=== PATIENT | female | born 1950 | race Caucasian/White ===

== ENCOUNTER 2019-06-04 14:48 | Emergency (ER) | payer MEDICARE, SELFPAY ==
[2019-06-04 14:53] VITALS: BP 138/96; PULSE 108; RESP 17; TEMP 36.7; O2SAT 97; BMI 24.6
[2019-06-04 16:07] LABS: Absolute Lymphocyte Count 2.81 X10^3/uL (0.83-4.51); Absolute Neutrophil Count 7.5 X10^3/uL (2.0-7.7); Basophil# 0.02 X10^3/uL; Basophil% 0.2 % (0-1); Eosinophil# 0.05 X10^3/uL; Eosinophils% 0.4 % (0-5); Hematocrit 43.2 % (37-47); Hemoglobin 14.1 g/dL (12.0-15.0); Lymphocyte # 2.81 X10^3/ul (4.0); Mean Corp Hgb Conc 32.6 g/dL (32-36); Mean Corpuscular Hgb 30.9 pg (27.0-32.0); Mean Corpuscular Volume 94.7 fL (81-99); Mean Platelet Vol. 8.4 fl (6.2-12.0); Monocyte# 0.81 X10^3/uL; Monocyte% 7.2 % (0-10); NRBC Flagged by Analyzer 0 % (0-5); Neutrophil # 7.51 X10^3/uL (2.7-7.7); Neutrophil % 66.8 % (47-70); Platelet Count 335 K/mm3 (150-450); RBC Distribution Width CV 13.9 % (11.6-14.6); RBC Distribution Width SD 48.1 fl (35.1-43.9); Red Blood Count 4.56 M/mm3 (4.2-5.4); White Blood Count 11.2 K/mm3 (4.4-11.0)
[2019-06-04 16:14] LABS: Anion Gap 5 (5-15); BUN 18 mg/dL (7-18); BUN/Creat Ratio 26.2 RATIO (10-20); Calcium,Total 9.8 mg/dL (8.5-10.1); Chloride 102 mmol/L (98-107); Creatinine, Serum 0.69 mg/dL (0.55-1.02); EST Glomerular Filtration Rate 90 mL/min (>60); Est Glom Filt Rate - Afr Amer 109 mL/min (>60); Estimated Creatinine Clearance 50.91 ml/min; Glucose 101 mg/dL (74-106); Potassium 4.5 mmol/L (3.5-5.1); Sodium Level 137 mmol/L (136-145)
[2019-06-04 17:32] VITALS: BP 150/95; PULSE 88; RESP 20; TEMP 36.7; O2SAT 95
[2019-06-04 17:52] LABS: Bacteria 0 SEEN /hpf (None Seen); Mucous, Urine 0 SEEN /hpf (<or=2+); Red Blood Cells-Urine 0 SEEN /hpf (0-5); Squamous Epithelial Cells - UA 0 SEEN /hpf (5-10); White Blood Cells 0 SEEN /hpf (0-5)
[2019-06-04 17:58] LABS: Color, Urine Yellow (Yellow); Glucose, Dipstick Normal (Normal); Ketone-Dipstick Negative (Negative); Leukocyte Esterase-Dipstick 25 /ul (Negative); Nitrite-Dipstick Negative (Negative); Occult Blood-Urine 10 /ul (Negative); Protein-Dipstick 15 mg/dl (Negative); Specific Gravity, Urine 1.025 (1.002-1.030); Urine Bilirubin Dipstick Negative (Negative); Urine Clarity Clear (Clear); Urine Urobilinogen Normal (Normal)
[2019-06-04 18:00] VITALS: BP 162/69; PULSE 82; RESP 16; TEMP 36.4; O2SAT 93
--- NOTE | 2019-06-04 18:05 | EKG12_ITS ---
Test Reason : DYSRHYTHMIA Blood Pressure : / mmHG Vent. Rate : 081 BPM Atrial Rate : 081 BPM P-R Int : 152 ms QRS Dur : 074 ms QT Int : 380 ms P-R-T Axes : 050 042 051 degrees QTc Int : 441 ms Normal sinus rhythm Normal ECG Confirmed by BRIAN CHAVEZ, AB ([id number]), scientific editor ARNIE VARELA ([id number]) on 06/08/2019 12:46:56 PM Referred By: CONCEPCION Confirmed By:AB TORRES MD
--- NOTE | 2019-06-04 18:06 | CT_ITS ---
STUDY: CT ABDOMEN AND PELVIS WITH CONTRAST REASON FOR EXAM: Female, 69 years old. LOWER ABD PAIN N/V/D. Hx of IBS,diverticulitis, COPD, emphysema. Currently being treated for pneumonia. Prev cholecystectomy and hysterectomy. Delays through liver, kidneys and bladder RADIATION DOSAGE (If Supplied By Facility): CTDIvol = ( 12.56 ) mGy, DLP = ( 1273.28 ) mGycm TECHNIQUE: Transaxial images were obtained from the dome of the diaphragm to the symphysis pubis without oral contrast. IV 100mL Isovue-300 was administered. Sagittal and coronal images were reconstructed. Individualized dose optimization techniques were used for this CT. COMPARISON: None. FINDINGS: Scattered small bulla. Negative for consolidation, atelectasis or pleural effusion. The visualized portions of the heart are within normal limits. Multiple hypoechoic lesions of the liver each with varying degrees of peripheral contrast enhancement consistent with hemangioma. The largest of these are in the medial right liver measuring 7.1 x 6.8 x 2.7 cm and in the anterior left liver measuring 6.3 x 2.7 x 3.5 cm which are mostly blood, isodense with the liver on delayed imaging except for the larger 2 lesions. There are surgical clips in the gallbladder fossa consistent with a prior cholecystectomy.. Mild compensatory dilatation of the common bile duct without visualized filling defect. Normal spleen. Normal pancreas. Normal bilateral adrenal glands. Normal right kidney. Normal left kidney. Normal visualized stomach. Normal small intestine. Diverticulosis of the colon. 1 short area of mild fat stranding around one diverticulum of the distal descending colon. Unremarkable sigmoid anastomosis. There is non-visualization of the appendix. Shotty right mesenteric lymph nodes. There is diffuse atherosclerotic calcification of the abdominal aorta, without a demonstrated aneurysm. Normal inferior vena cava. Normal retroperitoneum. Normal urinary bladder. There is absence of the uterus consistent with a prior hysterectomy. Negative for pelvic mass or free fluid of the pelvis. Small hernia of the right groin containing a nonobstructed loop of small bowel. There are diffuse degenerative changes of the visualized lumbar spine. CT/Abdomen/Pelvis W IV Cont ONLY IMPRESSION: 1 minimal area of fat stranding around a single diverticulum of the distal descending colon consistent with early acute diverticulitis. Otherwise negative for evidence of obstruction or bowel perforation. Small hernia of the right groin containing a nonobstructed loop of distal small bowel. The appendix is not visualized and is probably been removed. Multiple lesions in the liver as described above compatible with benign hemangioma. Large cavernous hemangioma of the right and left liver lobes as described above. Status post cholecystectomy with mild compensatory dilatation of the common bile duct without filling defect. Status post hysterectomy with no pelvic mass or free fluid of the pelvis. Electronically Signed: Nohemy Chairez MD at 19:18 EST , Service support ,
[2019-06-04] MEDS: 0.9% Normal Saline 1,000 ML 1000 ML IV (18:15)
[2019-06-04] MEDS: Ondansetron 4 MG/2 ML Vial IV (18:15)
--- NOTE | 2019-06-04 18:23 | NURSING ---
NO OLD EKGS
--- NOTE | 2019-06-04 18:32 | RAD_ITS ---
STUDY: X-RAY CHEST REASON FOR EXAM: Female, 69 years old. ABD PAIN THAT STARTED 05/30 AND N/V/D THAT STARTED ON 06/02 -- COUGH- CURRENTLY BEING TREATED FOR PNEUMONIA TECHNIQUE: 2 views COMPARISON: None. FINDINGS: The lungs are clear and expanded. There is no demonstrated pleural abnormality. Normal size heart. Normal mediastinum and katharine. Normal visualized pulmonary arteries. There is atherosclerotic tortuosity of the aortic arch and descending thoracic aorta. Anterior cervical spinal fusion hardware included in the [id number]. Normal visualized ribs, clavicles, and shoulders. There is no demonstrated abnormality of the visualized soft tissue structures of the upper abdomen. RAD/Chest PA and Lateral IMPRESSION: No acute cardiopulmonary findings. Negative for pneumonic infiltrate. Electronically Signed: Nohemy Chairez MD at 19:04 EST , Service support ,
[2019-06-04 19:00] VITALS: BP 162/69; PULSE 82; RESP 16; TEMP 36.8; O2SAT 95
[2019-06-04 19:02] LABS: AST(SGOT) 18 U/L (15-37); Alanine Aminotransfer ALT/SGPT 25 U/L (13-56); Albumin, Serum 3.7 g/dL (3.2-5.0); Alkaline Phosphatase 77 U/L (45-117); Bilirubin, Direct 0.11 mg/dL (0.00-0.30); Globulin 3.7 g/dL (2.2-4.2); Lipase 74 U/L (73-393); Protein, Total 7.4 g/dL (6.4-8.2)
--- NOTE | 2019-06-04 19:54 | ED.DCSUM_ITS ---
History of Present Illness Chief Complaint: Abd Pain Informant: Patient - Abdominal Pain/Flank Pain Onset: Days Context: Gradual Onset Quality: Cramping Location: RLQ, LLQ Worsened by: Nothing Relieved by: Nothing - Nausea/Vomiting/Emesis GI Symptom: Nausea, Vomiting Narrative: Patient is a 69-year-old female with history of diverticulitis status post colonic resection and anastomosis presenting with lower abdominal pain. Patient states she has had abdominal pain for the past 5 days that has been diffuse but worsening. The pain is now more severe in her lower abdomen. She also notes that 2 days ago she had 6 episodes of vomiting. She is had no further vomiting but has had associated nausea. She was having diarrhea but now her stools are more formed. Patient has been on multiple doses of prednisone as well as a course of doxycycline over the last month for bronchitis and upper respiratory symptoms. Patient states her breathing feels fine at this time. She does continue to have a productive cough. She has associated headache. She denies any fever or chills. She denies any urinary symptoms. She denies any other complaints at this time. Past Medical History - Allergies and Home Meds Allergies/Adverse Reactions: Allergies No Known Allergies Allergy (Verified 06/04/19 14:52) Primary Care Physician: MARTIR KEENE [Other] Past Medical History: - - Diverticulitis, anxiety, depression, hyperlipidemia, COPD Surgical History: colectomy Lives: Spouse/ Significant Other Smoking Status: Current every day smoker Review of Systems General: Reports: Malaise. Denies: Chills, Fever, Sweats Eyes: Denies: Visual changes - bilaterally, Diplopia ENT: Denies: Rhinorrhea, Sore throat Cardiovascular: Denies: Chest pain, Palpitations Respiratory: Reports: Cough. Denies: Dyspnea, Sputum, Dyspnea on exertion Gastrointestinal: Reports: Abdominal pain, Nausea, Vomiting. Denies: Diarrhea, Melena, Hematochezia Genitourinary: Denies: Dysuria, Hematuria, Frequency Musculoskeletal: Denies: Back pain, Extremity Pain Skin: Denies: Rash, Wounds Neurological: Denies: Headache, Weakness, Numbness Physical Exam Vital Signs/Narrative: Vital Signs Temp Pulse Resp BP Pulse Ox 06/04/19 19:00 98.2 F 82 16 162/69 H 95 06/04/19 18:00 97.6 F L 82 16 162/69 H 93 06/04/19 17:32 98.1 F 88 20 H 150/95 H 95 Inital Vital Signs reviewed: Yes General: Well nourished, Well developed, No Acute Distress Head: Normocephalic, Atraumatic Eyes: Perrl, EOMI ENT: Moist mucous membranes, No rhinorrhea Neck: Supple, Nontender Cardiovascular: Regular rate, Regular rhythm, No murmurs Respiratory: No distress, Chest nontender, Decreased Air Movement. Negative for: Rhonchi, Wheezing, Chest tenderness Abdomen: Soft, Nondistended, Normal bowel sounds, Tender - Suprapubic and left lower quadrant Back: Nontender, Normal Inspection. Negative for: CVA tenderness Extremities: Nontender, No edema Skin: Normal color, No rash Neurological: Alert, Oriented x3, Cranial nerves II-XII grossly intact, Normal Strength, Normal Sensation Psychological: Normal affect, Normal Mood Diagnostic/Tx/Re-eval Chest X-Ray - ED: 2 View, Read by ED Physician, Read by Radiologist, No Acute Disease Clinical Impression(s) from Imaging Studies Abdomen/Pelvis CT 06/04/19 18:06 IMPRESSION: 1 minimal area of fat stranding around a single diverticulum of the distal descending colon consistent with early acute diverticulitis. Otherwise negative for evidence of obstruction or bowel perforation. Small hernia of the right groin containing a nonobstructed loop of distal small bowel. The appendix is not visualized and is probably been removed. Multiple lesions in the liver as described above compatible with benign hemangioma. Large cavernous hemangioma of the right and left liver lobes as described above. Status post cholecystectomy with mild compensatory dilatation of the common bile duct without filling defect. Status post hysterectomy with no pelvic mass or free fluid of the pelvis. Electronically Signed: Nohemy Chairez MD at 19:18 EST , Service support , Chest X-Ray 06/04/19 18:32 IMPRESSION: No acute cardiopulmonary findings. Negative for pneumonic infiltrate. Electronically Signed: Nohemy Chairez MD at 19:04 EST , Service support , Laboratory Data 06/04/19 06/04/19 06/04/19 15:55 15:55 15:55 WBC 11.2 H RBC 4.56 Hgb 14.1 Hct 43.2 MCV 94.7 MCH 30.9 MCHC 32.6 RDW Std Deviation 48.1 H RDW Coeff of Bibi 13.9 Plt Count 335 MPV 8.4 Immature Gran % (Auto) 0.400 Neut % (Auto) 66.8 Lymph % (Auto) 25.0 [place] % (Auto) 7.2 Eos % (Auto) 0.4 Baso % (Auto) 0.2 Absolute Neuts (auto) 7.5 Absolute Lymphs (auto) 2.81 Nucleated RBC % 0 Sodium 137 Potassium 4.5 Chloride 102 Carbon Dioxide 30.0 Anion Gap 5 BUN 18 Creatinine 0.69 Estim Creat Clear Calc 50.91 Est GFR (MDRD) Af Amer 109 Est GFR (MDRD) Non-Af 90 BUN/Creatinine Ratio 26.2 H Glucose 101 Calcium 9.8 Total Bilirubin 0.30 Direct Bilirubin 0.11 AST 18 ALT 25 Alkaline Phosphatase 77 Troponin I < 0.015 Total Protein 7.4 Albumin 3.7 Globulin 3.7 Lipase 74 Urine Color Urine Clarity Urine pH Ur Specific [place] Urine Protein Urine Glucose (UA) Urine Ketones Urine Occult Blood Urine Nitrite Urine Bilirubin Urine Urobilinogen Ur Leukocyte Esterase Urine RBC Urine WBC Ur Squamous Epith Cells Urine Bacteria Urine Mucus 06/04/19 17:45 WBC RBC Hgb Hct MCV MCH MCHC RDW Std Deviation RDW Coeff of Bibi Plt Count MPV Immature Gran % (Auto) Neut % (Auto) Lymph % (Auto) [place] % (Auto) Eos % (Auto) Baso % (Auto) Absolute Neuts (auto) Absolute Lymphs (auto) Nucleated RBC % Sodium Potassium Chloride Carbon Dioxide Anion Gap BUN Creatinine Estim Creat Clear Calc Est GFR (MDRD) Af Amer Est GFR (MDRD) Non-Af BUN/Creatinine Ratio Glucose Calcium Total Bilirubin Direct Bilirubin AST ALT Alkaline Phosphatase Troponin I Total Protein Albumin Globulin Lipase Urine Color Yellow Urine Clarity Clear Urine pH 6.0 Ur Specific [place] 1.025 Urine Protein 15 H Urine Glucose (UA) Normal Urine Ketones Negative Urine Occult Blood 10 H Urine Nitrite Negative Urine Bilirubin Negative Urine Urobilinogen Normal Ur Leukocyte Esterase 25 H Urine RBC 0 SEEN Urine WBC 0 SEEN Ur Squamous Epith Cells 0 SEEN Urine Bacteria 0 SEEN Urine Mucus 0 SEEN - Rhythm Strip Rhythm Strip: Sinus Rhythm Rate: 81 Ectopy: None - EKG Initial EKG Interpretation: Sinus Rhythm, - - Sinus rhythm at a rate of 81 Normal axis Normal intervals Normal ST segments - Medical Decision Making Patient is evaluated for worsening lower abdominal pain. She appears nontoxic in no acute distress. She does have an extensive history of diverticulitis and subsequent colon resection. CT of the abdomen pelvis is obtained to rule out small bowel obstruction. This does not show an obstruction but it does show small area possible acute diverticulitis. Patient be started on Augmentin to treat this. She currently has only a minimally elevated white blood cell count and her lab work is otherwise normal. Because of patient's age and tobacco use I did obtain a chest x-ray, EKG and troponin to rule out an atypical angina as a cause of her symptoms. This was all negative. She is not had any episodes of vomiting for the past few days and I think she is a good palate candidate for outpatient treatment. She is also given a prescription for Zofran at home. In the ER patient is treated with IV fluids, Zofran and Toradol. She does have improvement of her symptoms while in the emergency room. Patient is counseled on signs and symptoms requiring return to the emergency room. Patient verbalizes agreement and understand this plan. Patient discharged home in stable and improved condition. Patient CT did show incidental finding of several large liver hemangiomas. Patient verbalized that she was aware of these and her GI doctor monitors them. ED Disposition - Plan for ED Patient: Disposition: Home or Assisted Living Diagnosis: Diverticulitis Instructions: Diverticulitis Prescriptions: Amoxicillin/Potassium Clav [Augmentin 875-125 Tablet] 1 ea PO BID #14 tab Prescription Printed Ondansetron [Zofran Odt] 4 mg PO Q8H PRN PRN #10 tab PRN Reason: Nausea Prescription Printed Referrals: MARTIR KEENE [Other] Additional Instructions: Your CT showed diverticulitis. This is likely why you are having worsening abdominal pain. He will be started on antibiotics and nausea medicine. You may take ibuprofen and/or Tylenol as needed for pain. You may stop your steroids. You do not have any signs of pneumonia on your chest x-ray. Please follow-up with your primary care doctor early next week.
[2019-06-04 20:00] VITALS: BP 134/77; PULSE 83; RESP 16; TEMP 36.6; O2SAT 93
[2019-06-04] MEDS: Amox/Clavulanate 875 MG Tablet PO (20:18)
[2019-06-04 20:39] VITALS: RESP 16
== END 2019-06-04 20:39 | disposition home or self-care (01) ==
PROVIDERS: Emergency Provider Emergency Medicine
DX: K57.92 Diverticulitis of intestine, part unspecified, without perforation or abscess without bleeding (principal); E78.5 Hyperlipidemia, unspecified; F32.9 Major depressive disorder, single episode, unspecified; F41.9 Anxiety disorder, unspecified; Z90.711 Acquired absence of uterus with remaining cervical stump; Z90.49 Acquired absence of other specified parts of digestive tract; F17.200 Nicotine dependence, unspecified, uncomplicated; Z90.710 Acquired absence of both cervix and uterus
CPT/HCPCS: 71046; 74177; 80048; 80076; 81001; 83690; 84484; 85025; 93005; 96361; 96374; 99284; J7030; Q9967; A4216; J2405

== ENCOUNTER → 2020-09-14 06:48 | Outpatient (CLI) | payer MEDICARE, SELFPAY ==
[2020-08-31 11:37] VITALS: BMI 25.9
--- NOTE | 2020-09-14 06:50 | ECHOD_ITS ---
Reason For Study: CHEST PAIN Procedure This was a 2D Doppler, Color Flow transthoracic echocardiogram. Exam performed in department. Left Ventricle Normal LV size. Left ventricular systolic function is normal. The estimated ejection fraction is 65 %. Stage 2 diastolic dysfunction. No regional wall motion abnormalities noted. Right Ventricle Normal RV size. Normal systolic function. Atria Normal left atrium. Normal right atrium. Mitral Valve Normal mitral valve. Tricuspid Valve Normal tricuspid valve. Mild (1+) tricuspid valve insufficiency. Pulmonary artery systolic pressure is 33 mmHg. Aortic Valve Normal aortic valve. Trisinus/trileaflet aortic valve. Pulmonic Valve Normal pulmonic valve. Great Vessels Normal aortic root. The pulmonary artery is normal size. Normal inferior vena cava. Pericardium/Pleural No pericardial effusion. MMode/2D Measurements & Calculations LVIDd: 3.9 cm IVSd: 0.91 cm Ao root diam: 3.3 cm LVIDs: 2.6 cm LVPWd: 0.95 cm RVDd: 3.2 cm FS: 32.0 % LAV(MOD-bp): 57.9 ml LA A4 area: 17.4 cm2 LA dimension(2D): 4.2 cm LAV(MOD-bp) Indexed: 31.0 ml/m2 LAV(MOD-sp2): 55.6 ml LAV(MOD-sp4): 50.5 ml RA A4 area: 10.7 cm2 Time Measurements MV dec time: 0.21 sec Doppler Measurements & Calculations MV E max stoney: 97.8 cm/sec Lat Peak E' Stoney: 5.8 cm/sec Med Peak E' Stoney: 6.0 cm/sec MV A max stoney: 80.8 cm/sec E/E' lat: 16.8 E/E' med: 16.3 MV E/A: 1.2 Ao V2 max: 119.3 cm/sec LV V1 max: 111.5 cm/sec PA V2 max: 85.5 cm/sec Ao max P.7 mmHg LV V1 max P.0 mmHg PI end-d stoney: 117.7 cm/sec TR max stoney: 266.7 cm/sec TR max P.5 mmHg ECHO/Echo Complete Interpretation Summary Normal LV size. Left ventricular systolic function is normal. The estimated ejection fraction is 65 %. Stage 2 diastolic dysfunction. Structurally normal valves. Ordering Physician: Anurag Mcintosh Referring Physician: MARTIR KEENE Performed By: Erika Alegria, PAUL, RVT
--- NOTE | 2020-09-14 13:16 | STRESSREP ---
Stress Test Report Pharmacologic myocardial perfusion stress test. 70-year-old lady with a history of chest pain chest pressure. Stress protocol: Resting KG demonstrates normal sinus rhythm with a rate of 69 bpm normal intervals are noted resting blood pressure is 1 and 28/70 2 mmHg. 0.4 mg of regadenoson was infused per usual protocol followed by rapid venous saline flush injection continuous EKG monitoring was performed. The maximum heart rate attained was 93% of max impacted heart rate the maximum workload was 1 metabolic equivalent. At rest there were no ST or T wave changes noted to suggest abnormal flow reserve and at peak infusion nonspecific ST changes were noted with did not meet the criteria for ischemia. The final blood pressure was 118/72. Myocardial perfusion protocol. 11.1 mCi of technetium 99m sestamibi was injected at rest. 0.4 mg of regadenoson was infused per usual protocol peak infusion 33.8 mCi of technetium 99m sestamibi was injected stress images were obtained stress and rest images were reconstructed and compared in the short axis vertical long horizontal long axis. Gated images were also obtained Perfusion SPECT analysis: Review of the stress images demonstrated normal uptake of tracer noted in all areas of the myocardium. The resting images similarly demonstrated normal uptake of tracer noted in all areas of the myocardium. No areas of reversibility are noted suggest ischemia no previous infarct is noted. There is no motion abnormality noted and no GI uptake noted. Gated SPECT analysis: The gated ejection fraction is 85%. Conclusion: Normal pharmacologic myocardial perfusion stress test. Preserved ejection fraction.
== END ==
PROVIDERS: PCP Student in an Organized Health Care Education/Training Program; Referring Provider Internal Medicine Cardiovascular Disease; Visit Provider Internal Medicine Cardiovascular Disease
DX: R07.9 Chest pain, unspecified (principal)
CPT/HCPCS: 78452; 93017; 93306; A9500; A4216; J2785

== ENCOUNTER → 2021-03-27 14:20 | Outpatient (CLI) | payer MEDICARE, SELFPAY ==
[2021-03-27 14:47] LABS: Absolute Lymphocyte Count 2.41 X10^3/uL (0.83-4.51); Absolute Neutrophil Count 4.2 X10^3/uL (2.0-7.7); Basophil# 0.01 X10^3/uL; Basophil% 0.1 % (0-1); Eosinophil# 0.03 X10^3/uL; Eosinophils% 0.4 % (0-5); Hematocrit 40.2 % (37-47); Lymphocyte # 2.41 X10^3/ul (0.83-4.51); Lymphocyte % 33.9 % (19-41); Mean Corp Hgb Conc 32.3 g/dL (32-36); Mean Corpuscular Hgb 30.3 pg (27.0-32.0); Mean Corpuscular Volume 93.7 fL (81-99); Mean Platelet Vol. 8.7 fl (6.2-12.0); Monocyte# 0.47 X10^3/uL; Monocyte% 6.6 % (0-10); NRBC Flagged by Analyzer 0 % (0-5); Neutrophil # 4.17 X10^3/uL (2.7-7.7); Neutrophil % 58.7 % (47-70); Platelet Count 316 K/mm3 (150-450); RBC Distribution Width CV 13.7 % (11.6-14.6); RBC Distribution Width SD 47.5 fl (35.1-43.9); Red Blood Count 4.29 M/mm3 (4.2-5.4); White Blood Count 7.1 K/mm3 (4.4-11.0)
[2021-03-27 15:23] LABS: AST(SGOT) 16 U/L (15-37); Alanine Aminotransfer ALT/SGPT 19 U/L (13-56); Albumin, Serum 3.6 g/dL (3.2-5.0); Alkaline Phosphatase 72 U/L (45-117); Anion Gap 4 (5-15); BUN 16 mg/dL (7-18); BUN/Creat Ratio 27.4 RATIO (10-20); Bilirubin, Direct 0.09 mg/dL (0.00-0.30); Chloride 103 mmol/L (98-107); Cholesterol 180 mg/dL (200); Creatinine, Serum 0.58 mg/dL (0.55-1.02); EST Glomerular Filtration Rate 108 mL/min (>60); Est Glom Filt Rate - Afr Amer 130 mL/min (>60); Globulin 3.4 g/dL (2.2-4.2); Glucose 89 mg/dL (74-106); High Density Lipoprotein 71 mg/dL; Potassium 4.1 mmol/L (3.5-5.1); Sodium Level 137 mmol/L (136-145); Thyroid Stim Hormone (TSH) 0.69 uIU/mL (0.358-3.74); Triglycerides 118 mg/dL; Very Low Density Lipoprotein 24 mg/dL (5-40)
== END ==
PROVIDERS: PCP Student in an Organized Health Care Education/Training Program; Referring Provider Physician Assistant Medical; Visit Provider Physician Assistant Medical
DX: E78.5 Hyperlipidemia, unspecified (principal); R53.83 Other fatigue; R00.2 Palpitations; I51.89 Other ill-defined heart diseases; I25.10 Atherosclerotic heart disease of native coronary artery without angina pectoris
CPT/HCPCS: 36415; 80048; 80061; 80076; 84443; 85025

== ENCOUNTER → 2021-04-07 11:52 | Outpatient (CLI) | payer MEDICARE, SELFPAY | PROVIDERS: PCP Student in an Organized Health Care Education/Training Program; Referring Provider Physician Assistant Medical; Visit Provider Physician Assistant Medical | DX: R00.2 Palpitations (principal) | CPT/HCPCS: 93225; 93226 ==

== ENCOUNTER 2023-04-11 13:30 | Outpatient (RCR) | payer MEDICARE, SELFPAY ==
--- NOTE | 2022-10-15 13:28 | HP.PTEVAL ---
Patient's Visit Information LO LINARES is a 72 year old F referred to Physical Therapy by Dr. Jun Jimenez MD with a diagnosis of tear of R peroneal tendon. Date of Evaluation: 10/08/22 Physical Therapist: Db Ardon DPT - Visit Plan Frequency: 2x /Week Plan: Start with ROM of R ankle, add in strengthening progressing to more WBing activities as physician allows. - Subjective Pt. is here today for her initial evaluation with diagnosis of tear of R peroneal tendon with surgical repair. Pt. has been on a knee scooter and walker for a few months now. Pt. is now walking with FWW and CAM boot. She reports no pain currently. She is a little hesitant to increase WBing on it. She reports she is to stay in the CAM boot until next visit with doctor. She has been doing some stretching at home, but not much. Sleeping without issues. No N/T noted, no calf pain. Pt. is hopeful to get back to all recreational activities without limitations. Currently Wbing as tolerated in CAM boot. - Objective POSTURE: Pt. has normal posture, but does have wt. shift to L side. PALPATION: pt. has well healing incision, no signs of infection. Negative homans signs. NEURO: Pt. has normal sensation throughout BLEs. Pt. has normal DTR of BLEs. MMT: LLE 5/5 throughout. RLE: ankle: DF 4/5, PF 4+/5, EVR 4/5, INV 4/5; knee: ext 4+/5, flexion 4+/5. GAIT: Pt. was able to stand and Wt. shift between BLEs without issues with out increase in symptoms. Pt. was able to walk with FWW with CAM boot. STAIRS: step to pattern without issues. - Balance/Special Test Scores Lower Extremity Functional Score: 32 - Goals Goal 1:: LTG: Pt. to be I with HEP. Goal Time Frame: 4-6 Weeks Goal 2:: STG: Pt. to have increased R ankle ROM to full without increase in symptoms. Goal Time Frame: 2 Weeks Goal 3:: LTG: Pt. to ambulate with CAM boot without AD with normal pattern and no increase in symptoms. Goal Time Frame: 4-6 Weeks Goal 4:: LTG: Pt. to have increased R ankle strength to 5/5 throughout. Goal Time Frame: 4-6 Weeks Goal 5:: LTG: Pt. to ambulate without normal pattern without CAM boot for unlimited distances. Goal Time Frame: 6-8 Weeks Goal 6:: LTG: Pt. to resume all recreational activities without increase in symptoms. Goal Time Frame: 8-12 Weeks - Rehabilitation Potential Physical Therapy Diagnosis: Pt. has signs and symptoms consistent with tear of R peroneal tendon. Pt. has marked hypomobility, weakness, difficulty walking and increased pain. Pt. would benefit from PT to address the above limitations progressing back to all functional activities without limitations. Rehabilitation Potential: Excellent - Anticipated Interventions Patient/Client Instruction: Educate patient on: Condition, Plan of Care, Risk Factors, Benefits of Fitness Program For the Purpose of:: To improve decision making, To facilitate caregiver knowledge, To improve self management, To prevent re-injury, To improve ability to perform tasks related to life management, To improve tolerance to ADL's Therapeutic Exercise to Include: Strength training, Balance training, Body mechanics, Postural training, Flexibilty training, Gait and locomotor training, Passive ROM, Active ROM For the Purpose of:: To decrease pain, To decrease swelling/inflammation, To increase ROM, To improve nutrient delivery to tissue, To increase oxygenation perfusion, To improve muscle performance and motor function, To improve ability to perform ADL's, To increase tolerance to activity/condition/position, To improve health of tissue, To decrease soft tissue restriction Thank you for the opportunity to evaluate your patient. For Medicare and Medicare HMO plans, please review the plan of care and approve it. It will need to be FAXED BACK to us at [phone] for Medicare purposes. For Medicare only, by signing this I certify the plan of care. Please let me know if there are questions or concerns regarding this plan of care. Physician Signature: Date:
--- NOTE | 2023-01-04 08:05 | HP.PTREVAL ---
Re-Evaluation Intro: Dr. Jun Jimenez MD, It has been my pleasure to treat CHANTAL LINARES over the last 20 visits for tear of R peroneal tendon. Please see the progress note below for an update on the physical therapy plan of care! Subjective Subjective: Pt. reports having improvement, but is still having pain at anterior ankle Objective Objective/Function: ROM: Pt. has decent ROM, DF 12deg, PF 42deg, INV 18deg, EVR 8deg. PROM: DF 15deg PF 45deg, INV 20deg, EVR 14deg. Pt. has some mild pain with increased inv. MMT: DF 5-/5, PF 5-/5, EVR 4/5, inv 4+/5. GAIT: Pt. ambulates without AD with sleeve on her ankle. Pt. has decreased forefoot rocker moment on RLE secondary to reports of increased pain. Pt. has no major ankle deviations from normal. slight toeing out. STAIRS: ascending fairly normal, descending has decent ankle mobility, slight increase in anterior ankle pain. Pt. is having some soreness at her lateral ankle, along distal post tib tendon. Pt. is also having some anterior ankle pain with increased DF during gait and with general ankle mobility. Plan Plan Plan: I will have Chantal continue with PT with focus on decreasing symptoms. I want to try US to anterior ankle, progress DF ROM and ankle strength. She does continue to present with decreased ankle proprioception, but is improving in SLS activities. Progress to SLS activities as tolerated. Balance/Gait/Functional tests Balance/Special Test Scores Lower Extremity Functional Score: 32 Goals Goals Goal 1:: LTG: Pt. to be I with HEP. Goal Time Frame: 4-6 Weeks Goal Progress: Goal Met Goal 2:: STG: Pt. to have increased R ankle ROM to full without increase in symptoms. Goal Time Frame: 2 Weeks Goal Progress: Progressing Goal 3:: LTG: Pt. to ambulate with CAM boot without AD with normal pattern and no increase in symptoms. Goal Time Frame: 4-6 Weeks Goal Progress: Goal Met Goal 4:: LTG: Pt. to have increased R ankle strength to 5/5 throughout. Goal Time Frame: 4-6 Weeks Goal Progress: Progressing Goal 5:: LTG: Pt. to ambulate without normal pattern without CAM boot for unlimited distances. Goal Time Frame: 6-8 Weeks Goal Progress: Goal Met Goal 6:: LTG: Pt. to resume all recreational activities without increase in symptoms. Goal Time Frame: 8-12 Weeks Goal Progress: Progressing Anticipated Interventions Anticipated Interventions Patient/Client Instruction: Educate patient on: Condition, Plan of Care, Risk Factors and Benefits of Fitness Program For the Purpose of:: To improve decision making, To facilitate caregiver knowledge, To improve self management, To prevent re-injury, To improve ability to perform tasks related to life management and To improve tolerance to ADL's Therapeutic Exercise to Include: Strength training, Balance training, Body mechanics, Postural training, Flexibilty training, Gait and locomotor training, Passive ROM and Active ROM For the Purpose of:: To decrease pain, To decrease swelling/inflammation, To increase ROM, To improve nutrient delivery to tissue, To increase oxygenation perfusion, To improve muscle performance and motor function, To improve ability to perform ADL's, To increase tolerance to activity/condition/position, To improve health of tissue and To decrease soft tissue restriction Re-Evaluation Ending Re-evaluation ending: Please do not hesitate to contact me at [phone] by phone or if you have questions or concerns regarding this new plan of care! Sincerely, Db Ardon DPT
--- NOTE | 2023-01-22 14:09 | HP.PTREVAL_ITS ---
Re-Evaluation Intro: Dr. Jun Jimenez MD, It has been my pleasure to treat LO LINARES over the last 25 visits for tear of R peroneal tendon. Please see the progress note below for an update on the physical therapy plan of care! Subjective Subjective: Pt. went back to physician last week and everything went well. She had new xrays all looked good. Objective Objective/Function: ROM: Pt. had good PROM of L ankle with in normal limits. AROM: Pt. had good AROM except slight limitation with ankle EVR (active to 5deg) Better with EVR and DF MMT: R ankle: DF 5-/5, PF 5-/5, INV 5-/5, EVR 4/5. MIld increase with EVR. palpation; pt. continues to be tender throughout lateral peroneal of R ankle, slight tenderness at anterior aspect of ankle. GAIT: pt. has antalgic pattern during R stance phase, she has decent rocker moment STAIRS: Pt. ascends well, mild increase in symptoms with descending during R stance phase, but not early heel off. 6 MWT: 1053feet with out AD. Plan Plan Plan: I am requesting more visits x2 week for 6 weeks to work on ankle proprioception and ankle strengthening with functional movements. She still has some issues iwth ankle EVR strength and dynamic balance in SLS most likely due to decrease proprioception and ankle EVR stability. Balance/Gait/Functional tests Balance/Special Test Scores Lower Extremity Functional Score: 36 6 Minute Walk Test: 1053 feet. Pt. reports increase in symptoms to 3/10 at la teral ankle. Goals Goals Goal 1:: LTG: Pt. to be I with HEP. Goal Time Frame: 4-6 Weeks Goal Progress: Goal Met Goal 2:: STG: Pt. to have increased R ankle ROM to full without increase in symptoms (goal met). 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 Goal Time Frame: 4-6 Weeks Goal Progress: Progressing Goal 3:: LTG: Pt. to ambulate with CAM boot without AD with normal pattern and no increase in symptoms, (goal met). NEW GOAL: 01/22/23 Pt. to ambulate without antalgic pattern without increase in symptoms for 1400feet during 6 MWT. Goal Time Frame: 4-6 Weeks Goal Progress: Progressing Goal 4:: LTG: Pt. to have increased R ankle strength to 5/5 throughout. Goal Time Frame: 4-6 Weeks Goal Progress: Progressing Goal 5:: LTG: Pt. to ambulate without normal pattern without CAM boot for unlimited distances. Goal Time Frame: 6-8 Weeks Goal Progress: Progressing Goal 6:: LTG: Pt. to resume all recreational activities without increase in symptoms. Goal Time Frame: 8-12 Weeks Goal Progress: Progressing Anticipated Interventions Anticipated Interventions Patient/Client Instruction: Educate patient on: Condition, Plan of Care, Risk Factors and Benefits of Fitness Program For the Purpose of:: To improve decision making, To facilitate caregiver knowledge, To improve self management, To prevent re-injury, To improve ability to perform tasks related to life management and To improve tolerance to ADL's Therapeutic Exercise to Include: Strength training, Balance training, Body mechanics, Postural training, Flexibilty training, Gait and locomotor training, Passive ROM and Active ROM For the Purpose of:: To decrease pain, To decrease swelling/inflammation, To increase ROM, To improve nutrient delivery to tissue, To increase oxygenation perfusion, To improve muscle performance and motor function, To improve ability to perform ADL's, To increase tolerance to activity/condition/position, To improve health of tissue and To decrease soft tissue restriction Re-Evaluation Ending Re-evaluation ending: Please do not hesitate to contact me at [phone] by phone or if you have questions or concerns regarding this new plan of care! Sincerely, Db Ardon DPT
== END 2023-04-11 19:00 | disposition home or self-care (01) ==
LOC: PT 13:30
PROVIDERS: PCP Student in an Organized Health Care Education/Training Program
DX: S86.311D Strain of muscle(s) and tendon(s) of peroneal muscle group at lower leg level, right leg, subsequent encounter (principal)
CPT/HCPCS: 97035; 97110; 97161; 97164

== ENCOUNTER → 2024-10-07 | Outpatient (CLI) | payer MEDICARE, SELFPAY ==
[2024-10-07 12:42] LABS: AST(SGOT) 15 U/L (<=31); Alanine Aminotransfer ALT/SGPT 6 U/L (<=34); Albumin, Serum 4.2 g/dL (3.4-4.8); Alkaline Phosphatase 74 U/L (35-104); Anion Gap 9 (5-15); BUN 16 mg/dL (4-19); BUN/Creat Ratio 30.5 RATIO (10-20); Bilirubin, Direct 0.13 mg/dL (0.00-0.30); Calcium,Total 9.4 mg/dL (7.6-11.0); Carbon Dioxide 26.1 mmol/L (21.0-32.0); Chloride 103 mmol/L (98-108); Cholesterol 203 mg/dL (<=200); Creatinine, Serum 0.52 mg/dL (0.70-1.20); EST Glomerular Filtration Rate 97 (>60); Globulin 2.6 g/dL (2.2-4.2); Glucose 106 mg/dL (70-99); High Density Lipoprotein 67 mg/dL; Low Density Lipoprotein Calc. 116 mg/dL; Potassium 4.2 mmol/L (3.3-5.1); Protein, Total 6.8 g/dL (5.9-8.4); Sodium Level 138 mmol/L (133-145); Total Bilirubin 0.31 mg/dL (0.00-1.30); Triglycerides 102 mg/dL; Very Low Density Lipoprotein 20 mg/dL (5-40); cholesterol:hdl ratio screen 3.03
== END | disposition home or self-care (01) ==
LOC: LAB 10:24
PROVIDERS: PCP Student in an Organized Health Care Education/Training Program; Referring Provider Student in an Organized Health Care Education/Training Program; Visit Provider Student in an Organized Health Care Education/Training Program
DX: E78.5 Hyperlipidemia, unspecified (principal); I51.89 Other ill-defined heart diseases
CPT/HCPCS: 36415; 80048; 80061; 80076

== ENCOUNTER → 2025-01-25 | Outpatient (CLI) | payer MEDICARE, SELFPAY ==
[2025-01-25 16:49] LABS: Anion Gap 10 (5-15); BUN 12 mg/dL (4-19); BUN/Creat Ratio 25.8 RATIO (10-20); Calcium,Total 9.8 mg/dL (7.6-11.0); Carbon Dioxide 25.0 mmol/L (21.0-32.0); Chloride 102 mmol/L (98-108); Glucose 83 mg/dL (70-99); Magnesium 2.1 mg/dL (1.5-2.2); Potassium 4.3 mmol/L (3.3-5.1)
== END | disposition home or self-care (01) ==
LOC: LAB 15:16
PROVIDERS: PCP Student in an Organized Health Care Education/Training Program; Referring Provider Student in an Organized Health Care Education/Training Program; Visit Provider Student in an Organized Health Care Education/Training Program
DX: R25.2 Cramp and spasm (principal); E11.9 Type 2 diabetes mellitus without complications
CPT/HCPCS: 36415; 80048; 83036; 83735

== ENCOUNTER → 2025-03-05 | Outpatient (CLI) | payer MEDICARE, SELFPAY ==
--- OUTSIDE RECORDS SUMMARY | 2025-03-05 07:20 | XMS RPT_ITS | CCD ---
Author Organization [facility] Care Team Providers Care Insurance Claims Adjuster Name Role Phone Shankar Felipe Unavailable Unavailable PROVIDER, UNKNOWN Unavailable Unavailable PEE, ALAN B Unavailable Unavailable MONIK WALLACE Unavailable UnaDARIA Campa Unavailable Unavailable NO PRIMARY CARE, MD Unavailable Unavailable Martir Keene Primary Care Provider Martir Keene Primary Care Provider Martir Keene Primary Care Provider Martir Keene MD Primary Care Provider Martir Keene MD Primary Care Provider PROVIDER, UNKNOWN Primary Care Unavailable PROVIDER, UNKNOWN Referring Unavailable PROVIDER, UNKNOWN Attending Unavailable PROVIDER, UNKNOWN Primary Care Unavailable PROVIDER, UNKNOWN Referring Unavailable Akosua Reyes Attending Unavailable PROVIDER, UNKNOWN Primary Care Unavailable PROVIDER, UNKNOWN Referring Unavailable Bashour, Flynn Attending Unavailable PROVIDER, UNKNOWN Primary Care Unavailable PROVIDER, UNKNOWN Referring Unavailable Jake Franco Attending Unavailable PROVIDER, UNKNOWN Primary Care Unavailable PROVIDER, UNKNOWN Referring Unavailable Sebastien Gramajo Attending Unavailable PROVIDER, UNKNOWN Referring Unavailable PROVIDER, UNKNOWN Attending Unavailable PROVIDER, UNKNOWN Primary Care Unavailable BASHOUR, FLYNN N Referring Unavailable PEE, ALAN B Primary Care Unavailable BASHOUR, FLYNN N Referring Unavailable PEE, ALAN B Primary Care Unavailable BASHOUR, FLYNN N Referring Unavailable PEE, ALAN B Primary Care Unavailable Martir Keene MD Primary Care Provider Martir Keene MD Primary Care Provider Martir Keene MD Primary Care Provider Bishop CHAVEZ, Dr. [place] Primary Care Provider Dr. Martir Keene MD Referring Provider Jorge Dempsey Attending Provider [phone] Jorge Dempsey Referring Provider KEENE, MARTIR Primary Care Unavailable JOAN, JAKE Attending Unavailable KEENE, MARTIR Primary Care Unavailable LOPEZ, TUAN Referring Unavailable LOPEZ, TUAN Attending Unavailable KEENE, MARTIR Primary Care Unavailable OROSZ, TATIANA Referring Unavailable OROSZ, TATIANA Attending Unavailable KEENE, MARTIR Primary Care Unavailable TRASKA, TATIANA Referring Unavailable TRASKA, TATIANA Attending Unavailable KEENE, MARTIR Primary Care Unavailable JOAN, JAKE Referring Unavailable JOAN, JAKE Attending Unavailable KEENE, MARTIR Primary Care Unavailable HARTZFELD, GERMAN Attending Unavailable ANDRZEJ LY Unavailable KEENE, MARTIR Primary Care Unavailable J LUIS GERMAN Admitting Unavailable J LUIS GERMAN Attending Unavailable KEENE, MARTIR Primary Care Unavailable HARTVIOLETA GERMAN Attending Unavailable KEENE, MARTIR Primary Care Unavailable KEENE, MARTIR Referring Unavailable KEENE, MARTIR Attending Unavailable KEENE, MARTIR Primary Care Unavailable JOAN, JAKE Referring Unavailable JOAN, JAKE Attending Unavailable KEENE, MARTIR Primary Care Unavailable LOPEZ, TUAN Referring Unavailable LOPEZ, TUAN Attending Unavailable KEENE, MARTIR Primary Care Unavailable JOAN, JAKE Attending Unavailable KEENE, MARTIR Primary Care Unavailable JOAN, JAKE Attending Unavailable KEENE, MARTIR Primary Care Unavailable TRASKA, TATIANA Referring Unavailable TRASKA, TATIANA Attending Unavailable KEENE, MARTIR Primary Care Unavailable KEENE, MARTIR Attending Unavailable KEENE, MARTIR Primary Care Unavailable HARTZFELD, GERMAN Attending Unavailable KEENE, MARTIR Primary Care Unavailable HARTGoldyFELD, GERMAN Attending Unavailable KEENE, MARTIR Primary Care Unavailable JOAN, JAKE Referring Unavailable HARTZFELD, GERMAN Attending Unavailable KEENE, MARTIR Primary Care Unavailable KEENE, MARTIR Referring Unavailable KEENE, MARTIR Attending Unavailable KEENE, MARTIR Primary Care Unavailable OROSZ, TATIANA Referring Unavailable OROSZ, TATIANA Attending Unavailable Silver Diaz Attending Provider Dr. Martir Keene MD Primary Care Provider Demiter PA, Jorge Attending Provider Bishop CHAVEZ, Dr. [place] Referring Provider Demiter, Jorge Referring Unavailable Keene, Martir Primary Care Unavailable Demiter, Jorge Attending Unavailable Tracee Umana Attending Unavail able Keene, Martir Primary Care Unavailable Keene, Martir Referring Unavailable Keene, Martir Referring Unavailable Keene, Martir Primary Care Unavailable Demiter, Jorge Attending Unavailable Silver Diaz Attending Unavailable Keene, Martir Referring Unavailable Keene, Martir Primary Care Unavailable Adriana Brewster NP Attending Unavailable Keene, Martir Primary Care Unavailable Demiter, Jorge Attending Unavailable Keene, Martir Primary Care Unavailable Keene, Martir Referring Unavailable Keene, Martir Primary Care Unavailable Tatiana Adam A Attending Unavailable Orosgoldy Tatiana A Referring Unavailable Demiter, Jorge Referring Unavailable Demiter, Jorge Attending Unavailable Keene, Martir Primary Care Unavailable Keene, Martir Primary Care Unavailable Demiter, Jorge Referring Unavailable Demiter, Jorge Attending Unavailable Allergies Allergy Classification Reported Allergen(s) Allergy Type Date of Onset Reaction(s) Facility (11 sources) Propranolol Drug Allergy 5 Other (See Comments) [place], [place] (5 sources) Lisinopril Drug Allergy 2 N/V, diarrhea, abdominal pain [facility] (20 sources) Lisinopril Propensity to adverse reactions 2 [facility] (20 sources) Propranolol Drug Allergy 5 [facility] (1 source) Lisinopril Drug Allergy 5 [facility] Medications Current Medications Medication Drug Class(es) Dates Sig (Normalized) Sig (Original) acetaminophen 325 mg / oxyCODONE hydrochloride 5 mg oral tablet (2 sources) Opioid Agonist Start: 08-16-2022 End: 08-23-2022 take 1 tablet by mouth every six hours as needed for pain oxyCODONE-acetamin ophen (Percocet) 5-325 MG tablet Indications: Peroneal tendon tear, right, initial encounter Take 1 tablet by mouth every 6 hours as needed for severe pain (7-10) for up to 7 days. 28 tablet 0 08/16/2022 08/23/2022 Active [id number] 200 actuat albuterol 0.09 mg/actuat metered dose inhaler (20 sources) beta2-Adrenergic Agonist Start: 08-01-2023 End: 07-31-2024 take 2 puff(s) by inhalation every four hours as needed for wheezing albuterol (ProAir HFA) 108 (90 Base) MCG/ACT inhaler Indications: COPD with acute exacerbation (HCC) Inhale 2 puffs every 4 hours as needed for wheezing or shortness of breath. 8.5 g 08/01/2023 Active Start: 05-17-2020 take 2 puff(s) by in halation every six hours as needed for wheezing albuterol sulfate HFA (VENTOLIN HFA) 108 (90 Base) MCG/ACT inhaler Indications: COPD, moderate (HCC) Inhale 2 puffs into the lungs every 6 hours as needed for Wheezing 1 Inhaler 13 05/17/2020 Active Start: 05-17-2020 take 2 puff(s) by in halation every six hours as needed for wheezing albuterol sulfate HFA (VENTOLIN HFA) 108 (90 Base) MCG/ACT inhaler Indications: COPD, moderate (HCC) Inhale 2 puffs into the lungs every 6 hours as needed for Wheezing 1 Inhaler 13 05/17/2020 Active Start: 06-04-2019 Albuterol Sulf ate 18 GM HFA aerosol inhaler Active 2 NMA IH EVERY 6 HOURS NEEDED as needed for Sob &/Or Wheezing June 04, 2019 1:00am Start: 09-05-2018 take 2 puff(s) by in halation every six hours as needed for wheezing albuterol sulfate HFA (VENTOLIN HFA) 108 (90 Base) MCG/ACT inhaler Inhale 2 puffs into the lungs every 6 hours as needed for Wheezing 1 Inhaler 3 09/05/2018 Active ALPRAZolam 0.25 mg oral tablet (20 sources) Benzodiazepine Start: 09-14-2024 take 1 tablet by mouth once daily as needed ALPRAZolam (Xanax) 0.25 MG tablet Indications: Anxiety TAKE 1 TABLET BY MOUTH NIGHTLY NEEDED 30 tablet 09/14/2024 Active Start: 04-14-2024 take 0.25 mg by mout h once as needed for anxiety 0.25 mg, Oral, Once PRN, anxiety, Starting on Sat04/14/24 at 0618, For 1 dose, Preprocedure, Please do not administer prior to obtaining consent and/or history and physical. Start: 06-04-2019 End: 07-29-2024 take 1 tablet by mouth at bedtime as needed for sleep Alprazolam 0.25 MG tablet Active 0.25 mg PO AT BEDTIME as needed for Sleep June 04, 2019 1:00am Start: 01-28-2019 End: 02-27-2019 take 1 tablet by mouth twice daily ALPRAZolam (XANAX) 0.25 MG tablet Indications: Anxiety take 1 tablet by mouth twice a day if needed 60 tablet 3 01/28/2019 02/27/2019 Active aspirin 81 mg delayed release oral tablet (2 sources) Platelet Aggregation Inhibitor, Nonsteroidal Anti-inflammatory Drug Start: 08-16-2022 End: 09-15-2022 take 1 tablet by mouth every twelve hours aspirin 81 MG EC tablet Indications: DVT prophylaxis after surgery Take 1 tablet (81 mg) by mouth in the morning and 1 tablet (81 mg) in the evening. 60 tablet 0 08/16/2022 09/15/2022 Active azithromycin 250 mg oral tablet (1 source) Macrolide Antimicrobial Start: 08-01-2023 End: 08-06-2023 take 2 tablets by mouth once daily, then take 1 tablet by mouth once daily azithromycin (Zithromax) 250 MG tablet Indications: COPD with acute exacerbation (HCC) Take 2 tablets (500 mg) by mouth daily for 1 day, THEN 1 tablet (250 mg) daily for 4 days. 6 tablet 0 08/01/2023 08/06/2023 Active Luml-Tid-Xap-Nessa-P olr-Kikx-Tpl 1,000 MG tablet (4 sources) Start: 06-04-2019 take 1 tablet by mouth once daily Xrfi-Yxg-Fcq-Nessa -Auzt-Djin-Ebi 1,000 MG tablet Active 1000 mg PO DAILY June 04, 2019 1:00am 12 hr buPROPion hydrochloride 150 mg extended release oral tablet (1 source) Aminoketone Start: 03-30-2019 End: 05-02-2019 take 1 tablet by mouth once daily, then take 1 tablet by mouth twice daily buPROPion (WELLBUTRIN SR) 150 MG extended release tablet Indications: Tobacco dependence Take 1 tablet by mouth daily for 3 days, THEN 1 tablet 2 times daily. 63 tablet 0 03/30/2019 05/02/2019 Active celecoxib 200 mg oral capsule (11 sources) Nonsteroidal Anti-inflammatory Drug Start: 07-02-2022 take 1 capsule by mouth once daily at mealtime for pain celecoxib (CeleBREX) 200 MG capsule take 1 capsule by mouth once daily with food if needed for MILD TO MODERATE PAIN 0 07/02/2022 Active clobetasol propionate 0.5 mg/ml medicated shampoo (2 sources) Corticosteroid Start: 05-18-2021 Clobetasol Propionate 0.05 % SHAM Indications: Scalp psoriasis Apply to scalp daily. 118 mL 3 05/18/2021 Active dicyclomine hydrochloride 10 mg oral capsule (1 source) Anticholinergic Start: 07-17-2019 dicyclomine (BENTYL) 10 MG capsule ezetimibe 10 mg oral tablet (3 sources) Dietary Cholesterol Absorption Inhibitor Start: 10-13-2024 take 1 tablet by mouth once daily Ezetimibe 10 mg tablet Active 10 mg PO daily 30 October 13, 2024 12:00am Fiber (20 sources) Start: 04-08-2024 Fiber 500 MG capsule 04/08/2024 Active 60 actuat fluticasone propionate 0.25 mg/actuat / salmeterol 0.05 mg/actuat dry powder inhaler (1 source) Corticosteroid, beta2-Adrenergic Agonist Start: 08-30-2021 take 1 puff(s) by inhalation every twelve hours fluticasone-salm eterol (ADVAIR DISKUS) 250-50 MCG/DOSE AEPB Indications: COPD, moderate (HCC) Inhale 1 puff into the lungs every 12 hours 60 each 3 08/30/2021 Active 14 actuat fluticasone furoate 0.1 mg/actuat / vilanterol 0.025 mg/actuat dry powder inhaler (20 sources) Corticosteroid, beta2-Adrenergic Agonist Start: 06-01-2022 End: 08-23-2023 take 1 dose by inhalation once daily Fluticasone Furoate-Vilanter ol (Breo Ellipta) 100-25 MCG/ACT aerosol powder Indications: COPD, moderate (CMS/HCC) (HCC) Inhale 1 each daily. 60 each 5 06/01/2022 06/01/2023 Active Start: 05-17-2020 take 1 puff(s) by in halation in the morning fluticasone-vilanterol (BREO ELIPTA) 100-25 MCG/INH inhaler Inhale 1 puff in the morning. 0 05/17/2020 Active Start: 05-17-2020 take 1 puff(s) by in halation once daily fluticasone-vilanterol (BREO ELLIPTA) 100-25 MCG/INH AEPB inhaler Indications: COPD, moderate (HCC) Inhale 1 puff into the lungs daily 1 each 13 05/17/2020 Active Start: 06-04-2019 take 1 dose by inhal ation once daily Fluticasone Furoate-Vilanterol 1 EACH blister with device Active 1 NMA IH DAILY June 04, 2019 1:00am Start: 01-28-2019 take 1 puff(s) by in halation once daily fluticasone-vilanterol (BREO ELLIPTA) 100-25 MCG/INH AEPB inhaler Indications: COPD, moderate (HCC) Inhale 1 puff into the lungs daily 1 each 3 01/28/2019 Active Fluticasone Furoate-Vilanter ol (BREO ELLIPTA IN) (20 sources) take 1 puff(s) by mouth once daily Fluticasone Furoate-Vilanterol (BREO ELLIPTA IN) inhale 1 puff by mouth INTO THE LUNGS daily Inhalation for 30 Active take 1 puff(s) by mouth once rahel ly Fluticasone Furoate-Vilanterol (BREO ELLIPTA IN) inhale 1 puff by mouth INTO THE LUNGS daily Inhalation for 30 0 Active gabapentin 100 mg oral capsule (20 sources) Anti-epileptic Agent Start: 04-14-2024 End: 04-15-2024 take 300 mg by mouth twice daily 300 mg, Oral, 2 times daily, First dose on Sat04/14/24 at 2100, Phase II/On Unit Start: 03-12-2022 take 3 capsules by m outh twice daily gabapentin (Neurontin) 100 MG capsule Take 300 mg by mouth 2 times daily. 03/12/2022 Active Start: 12-16-2020 End: 05-28-2024 take 1 capsule by mouth twice daily as needed Gabapentin 100 mg capsule Discontinued 100 mg PO TWICE A DAY as needed December 16, 2020 11:06am May 28, 2024 12:25pm Start: 06-15-2019 End: 12-16-2020 take 1 capsule by mouth once daily Gabapentin 100 mg capsule Discontinued 100 mg PO DAILY August 31, 2020 12:00am December 16, 2020 11:08am ketoconazole 20 mg/ml medicated shampoo (5 sources) Azole Antifungal Start: 08-31-2020 Ketoconazole 2 % shampoo Active 1 NMA TOPICAL every 2 weeks as needed August 31, 2020 12:00am Start: 05-17-2020 ketoconazole ( NIZORAL) 2 % shampoo Indications: Scalp psoriasis Apply topically daily as needed. 1 Bottle 3 05/17/2020 Active lansoprazole 30 mg delayed release oral capsule (20 sources) Proton Pump Inhibitor Start: 08-05-2019 End: 01-25-2025 take 1 capsule by mouth in the morning lansoprazole (Prevacid) [address] capsule Take 30 mg by mouth in the morning. 02/11/2022 Active take 1 tablet by mouth once lidia y lansoprazole (PREVACID SOLUTAB) 30 MG disintegrating tablet Take 1 tablet by mouth daily 0 Active lansoprazole (PREVACID SOLUTAB) 30 MG disintegrating tablet (1 source) take 1 tablet by mouth once daily lansoprazole (PREVACID SOLUTAB) 30 MG disintegrating tablet Take 1 tablet by mouth daily 0 Active losartan potassium 50 mg oral tablet (20 sources) Angiotensin 2 Receptor Michael Start: 01-19-20 End: 07-20-19 25 losartan (Cozaar) 50 MG tablet Nightly. 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 90 tablet 3 09/16/2023 09/15/2024 Active Nirmatrelvir&Ritonavir 300/100 (Paxlovid, 300/100,) 20 x 150 MG & 10 x 100MG tablet therapy pack (1 source) Start: 07-01-2023 End: 07-06-2023 take 3 tablets by mouth every twelve hours Nirmatrelvir&Ritonavir 300/100 (Paxlovid, 300/100,) 20 x 150 MG & 10 x 100MG tablet therapy pack Take 3 tablets by mouth in the morning and 3 tablets in the evening. Do all this for 5 days. 30 tablet 0 07/01/2023 07/06/2023 Active ofloxacin 3 mg/ml ophthalmic solution (2 sources) Quinolone Antimicrobial Start: 01-11-2019 ofloxacin (OCUFLOX) 0.3 % solution oxyCODONE hydrochloride 5 mg oral tablet (15 sources) Opioid Agonist Start: 04-15-2024 End: 05-04-2024 take 1 tablet by mouth every six hours as needed for pain oxyCODONE (Roxicodone) 5 MG immediate release tablet Indications: Cervical stenosis of spinal canal Take 1 tablet (5 mg) by mouth every 6 hours as needed for severe pain (7-10) (breakthrough post op pain) for up to 7 days. 28 tablet 04/27/2024 05/04/2024 Active Start: 04-14-2024 End: 04-15-2024 take 1 tablet by mouth every four hours as needed for pain oxyCODONE (Roxicodone) immediate release tablet 5 mg prednisoLONE acetate 10 mg/ml ophthalmic suspension (2 sources) Corticosteroid Start: 01-11-2019 prednisoLONE acetate (PRED FORTE) 1 % ophthalmic suspension rosuvastatin calcium 40 mg oral tablet (2 sources) HMG-CoA Reductase Inhibitor Start: 01-25-2025 take 1 tablet by mouth once daily Rosuvastatin 40 mg tablet Active 40 mg PO daily 90 3 January 25, 2025 12:00am sertraline 100 mg oral tablet (20 sources) Serotonin Reuptake Inhibitor Start: 06-12-2024 End: 06-15-2024 take 2 tablets by mouth once daily sertraline (Zoloft) 100 MG tablet Take 2 tablets by mouth once daily 180 tablet 3 06/15/2024 Active Start: 04-15-2024 End: 04-15-2024 take 100 mg by mouth once daily 100 mg, Oral, Daily, F irst dose on Sat04/15/24 at 0900, Phase II/On Unit Start: 05-24-2022 End: 06-10-2024 take 2 tablets by mouth once daily sertraline (Zoloft) 100 MG tablet take 2 tablets by mouth once daily 180 tablet 3 05/22/2023 06/10/2024 Discontinued (Reorder) Start: 05-18-2021 End: 05-13-2022 take 2 tablets by mouth once daily sertraline (ZOLOFT) 100 MG tablet Indications: Anxiety Take 2 tablets by mouth daily 180 tablet 4 05/18/2021 05/13/2022 Active Start: 12-16-2020 take 1 tablet by feli th twice daily Sertraline 100 mg tablet Active 100 mg PO TWICE A DAY December 16, 2020 11:05am Start: 05-17-2020 End: 05-12-2021 take 2 tablets by mouth once daily Sertraline 100 mg tablet Discontinued 200 mg PO DAILY August 23, 2020 3:53pm December 16, 2020 11:08am Start: 06-04-2019 End: 08-23-2020 take 1 tablet by mouth twice daily Sertraline 100 MG tablet Discontinued 100 mg PO TWICE A DAY June 04, 2019 1:00am August 23, 2020 3:56pm Start: 04-14-2019 take 1 tablet by feli th twice daily sertraline (ZOLOFT) 100 MG tablet Indications: Anxiety take 1 tablet by mouth twice a day 60 tablet 1 04/14/2019 Active Start: 01-28-2019 take 1 tablet by feli th twice daily sertraline (ZOLOFT) 100 MG tablet Indications: Anxiety take 1 tablet by mouth twice a day 60 tablet 1 01/28/2019 Active simvastatin 40 mg oral tablet (20 sources) HMG-CoA Reductase Inhibitor Start: 09-05-2018 End: 01-25-2025 take 1 tablet by mouth once daily simvastatin (Zocor) 40 MG tablet Indications: Hyperlipidemia, unspecified hyperlipidemia type TAKE 1 TABLET BY MOUTH EVERY DAY 90 tablet 3 06/29/2024 Active tiZANidine 4 mg oral tablet (20 sources) Central alpha-2 Adrenergic Agonist Start: 04-14-2024 End: 05-07-2024 take 1 tablet by mouth every eight hours as needed tiZANidine (Zanaflex) 4 MG tablet Take 1 tablet (4 mg) by mouth every 8 hours as needed for muscle spasms for up to 10 days. 30 tablet 04/27/2024 Active Start: 03-12-2022 End: 04-15-2024 take 1 tablet by mouth three times daily as needed tiZANidine (Zanaflex) 4 MG tablet Take 4 mg by mouth 3 times daily as needed. 03/12/2022 04/15/2024 Discontinued (Stop taking at discharge) Start: 01-28-2019 take 1 tablet by feli th every six hours as needed for muscle spasms Tizanidine 4 MG tablet Active 4 mg PO EVERY 6 HOURS as needed for Spasms June 04, 2019 1:00am traMADol hydrochloride 50 mg oral tablet (20 sources) Opioid Agonist Start: 07-14-2024 take 1 tablet by mouth twice daily as needed for pain traMADol (Ultram) 50 MG tablet 1 TABLET ORALLY UP TO 2 TIMES A DAY NEEDED FOR PAIN 30 DAYS 07/14/2024 Active Start: 08-31-2020 traMADol (ULTR AM) 50 MG tablet Take by mouth. 0 08/31/2020 Active Start: 08-31-2020 End: 04-15-2024 take 1 tablet by mouth once daily as needed Tramadol 50 mg tablet Active 50 mg PO DAILY as needed December 16, 2020 11:08am varenicline 1 mg oral tablet (20 sources) Partial Cholinergic Nicotinic Agonist Start: 04-18-2024 End: 06-17-2024 take 1 tablet by mouth twice daily varenicline (Chantix) 1 MG tablet Indications: Smoking Cessation Therapy Take 1 tablet (1 mg) by mouth 2 times daily. Take with full glass of water. Do not start before April 18, 2024. 60 tablet 1 04/18/2024 Active Start: 02-25-2024 varenicline (C hantix Starting ) 0.5 MG X 11 & 1 MG X 42 tablet Indications: Smoking Cessation Therapy Use as directed on package instructions, try to quit smoking after 1 week. 53 each 02/25/2024 Active Completed/Discontinued Medications Medication Drug Class(es) Dates Sig (Normalized) Sig (Original) acetaminophen 325 mg oral tablet (6 sources) Start: 04-14-2024 End: 04-15-2024 take 1 tablet by mouth every six hours 650 mg, Oral, Every 6 hours, First dose on Sat04/14/24 at 1600, Phase II/On Unit Start: 04-14-2024 End: 04-14-2024 1,000 mg, Oral, Once, On Sat04/14/24 at 0630, For 1 dose, Preprocedure, Administer 60 minutes prior to surgery. Start: 08-16-2022 End: 08-16-2022 acetaminophen (Tylenol) tabl et 1,000 mg alendronic acid 70 mg oral tablet (4 sources) Bisphosphonate Start: 08-23-2020 End: 08-31-2020 take 1 tablet by mouth every week Alendronate 70 mg tablet Discontinued 70 mg PO EVERY WEEK August 23, 2020 12:00am August 31, 2020 11:41am amoxicillin 875 mg / clavulanate 125 mg oral tablet (6 sources) Penicillin-class Antibacterial Start: 11-30-2024 End: 01-25-2025 Amoxicillin-Pot Clavulanate 875-125 mg tablet Discontinued 1 {tbl} PO TWICE A DAY 20 0 November 30, 2024 12:00am January 25, 2025 2:32pm Start: 06-04-2019 End: 08-23-2020 Amoxicillin-Pot Clavulanate 1 EACH tablet Discontinued 1 NMA PO TWICE A DAY 14 0 June 04, 2019 1:00am August 23, 2020 3:50pm aprepitant 40 mg oral capsule (2 sources) Substance P/Neurokinin-1 Receptor Antagonist Start: 08-16-2022 End: 08-16-2022 aprepitant (Emend) capsule 40 mg atorvastatin 20 mg oral tablet (2 sources) HMG-CoA Reductase Inhibitor Start: 04-15-2024 End: 04-15-2024 Start: 04-15-2024 End: 04-15-2024 betamethasone 3 mg/ml / betamethasone acetate 3 mg/ml injectable suspension (12 sources) Corticosteroid Start: 01-31-2024 End: 01-31-2024 betamethasone acetate-betamethasone sodium phosphate (Celestone) injection 6 mg Start: 01-31-2024 End: 01-31-2024 6 mg, Intra-artICUlar, Once, On Sat01/31/24 at 1630, For 1 dose Start: 03-15-2023 End: 03-15-2023 betamethasone acetate-betame thasone sodium phosphate (Celestone) injection 6 mg Start: 07-25-2022 End: 07-25-2022 betamethasone acetate-betame thasone sodium phosphate (Celestone) injection 12 mg bisacodyl 10 mg rectal suppository (4 sources) Stimulant Laxative Start: 04-14-2024 End: 04-15-2024 take 10 mg rectal route every twenty-four hours as needed for constipation Start: 04-14-2024 End: 04-15-2024 take 1 tablet by mouth every twenty-four hours as needed for constipation 60 actuat budesonide 0.16 mg/actuat / formoterol fumarate 0.0045 mg/actuat metered dose inhaler (20 sources) Corticosteroid, beta2-Adrenergic Agonist Start: 06-21-2022 End: 04-15-2024 take 2 puff(s) by inhalation in the morning budesonide-formoterol (Symbicort) 160-4.5 MCG/ACT inhaler Indications: COPD, moderate (HCC) Inhale 2 puffs in the morning and 2 puffs in the evening. Rinse mouth with water after use to reduce aftertaste and incidence of candidiasis. Do not swallow.. 3 each 3 06/21/2022 04/15/2024 Discontinued (Stop taking at discharge) Calcium Carb-Vit D2-Minerals tablet (4 sources) Start: 08-23-2020 End: 12-16-2020 Calcium Carb-Vit D2-Minerals tablet Discontinued {tbl} PO August 23, 2020 12:00am December 16, 2020 11:07am calcium chloride 0.0014 meq/ml / potassium chloride 0.004 meq/ml / sodium chloride 0.103 meq/ml / sodium lactate 0.028 meq/ml injectable solution (6 sources) Start: 04-14-2024 End: 04-14-2024 take 50 mL intravenously every hour 50 mL/hr, IntraVENous, Continuous, Starting on Sat04/14/24 at 0630, Upon admission to sameday - please start iv if patient does not have iv access. Use 500ml NS for patients on dialysis. Start: 08-16-2022 End: 08-16-2022 lactated ringers infusion ceFAZolin 2000 mg injection (2 sources) Cephalosporin Antibacterial Start: 04-14-2024 End: 04-15-2024 take 2000 mg intravenously every eight hours 2,000 mg, IntraVENous, Administer over 30 Minutes, Every 8 hours, First dose on Sat04/14/24 at 1600, For 2 doses, Phase II/On Unit, premix bag, Suspected Indication (Select all that apply): Surgical Prophylaxis dapagliflozin 10 mg oral tablet (4 sources) Sodium-Glucose Cotransporter 2 Inhibitor Start: 09-29-2024 End: 01-25-2025 take 1 tablet by mouth once daily Dapagliflozin Propanediol (Farxiga) 10 mg tablet Discontinued 10 mg PO daily 30 11September 29, 2024 12:00am January 25, 2025 2:32pm 1 ml dexamethasone phosphate 4 mg/ml injection (4 sources) Corticosteroid Start: 04-14-2024 End: 04-14-2024 10 mg, IntraVENous, Once, On Sat04/14/24 at 1800, For 1 dose, Phase II/On Unit Start: 04-14-2024 End: 04-14-2024 10 mg, IntraVENous, Once, On Sat04/14/24 at 1800, For 1 dose, Phase II/On Unit Start: 10-19-2023 End: 10-19-2023 dexAMETHasone (PF) (Decadron ) injection 10 mg diclofenac sodium 0.01 mg/mg topical gel (16 sources) Nonsteroidal Anti-inflammatory Drug Start: 11-30-2024 End: 01-25-2025 apply 2 g topically once Diclofenac Sodium 1 % gel Discontinued 2 g TOPICAL ONCE November 30, 2024 12:00am January 25, 2025 2:32pm apply to single elbow, wrist or hand; for hand includes palm/fingers/back of hand Diclofenac Sodiu m (Voltaren) 1 % gel Apply topically 2 times daily. Active 1 ml diphenhydrAMINE hydrochloride 50 mg/ml cartridge (2 sources) Histamine-1 Receptor Antagonist Start: 08-16-2022 End: 08-16-2022 diphenhydrAMINE (BENADryl) injection 12.5 mg docusate sodium 100 mg oral capsule (4 sources) Start: 04-14-2024 End: 04-15-2024 take 100 mg by mouth twice daily for constipation 100 mg, Oral, 2 times daily, First dose on Sat04/14/24 at 2100, Phase II/On Unit, Bowel Regimen - for prevention of constipation. Start: 08-16-2022 End: 08-26-2022 take 1 capsule by mouth twice daily docusate sodium (Colace) 100 MG capsule Indications: Peroneal tendon tear, right, initial encounter Take 1 capsule (100 mg) by mouth 2 times daily for 10 days. 20 capsule 0 08/16/2022 08/26/2022 Active estrogens, conjugated (mcc) 0.625 mg/ml vaginal cream (20 sources) Estrogen Start: 01-08-2022 End: 10-19-2023 Premarin vaginal cream inser t 1 gram vaginally 2 TO 3 NIGHTS A WEEK 0 01/08/2022 10/19/2023 Discontinued Start: 12-05-2021 PREMARIN 0.625 MG/GM vaginal cream Start: 08-23-2020 End: 12-16-2020 take 1 tablet by mouth once daily Conjugated Estrogens (Premarin) 0.625 mg tablet Discontinued 0.625 mg PO DAILY August 23, 2020 12:00am December 16, 2020 11:07am famotidine 20 mg oral tablet (2 sources) Histamine-2 Receptor Antagonist Start: 08-16-2022 End: 08-16-2022 famotidine (Pepcid) tablet 20 mg gadobutrol (Gadavist) injection 7 mL (2 sources) Start: 02-13-2024 End: 02-13-2024 take 7 mL intravenously once as needed 7 mL, IntraVENous, IMG once PRN, contrast, Starting on Sat02/13/24 at 1007, For 1 dose 1 ml hydrALAZINE hydrochloride 20 mg/ml injection (2 sources) Arteriolar Vasodilator Start: 04-14-2024 End: 04-14-2024 5 mg, IntraVENous, Every 15 min PRN, high blood pressure, for SBP greater than 160 mmHg for 2 consecutive measurements taken from different sites, Starting on Sat04/14/24 at 0915, For 2 doses, Recovery (only), PRN for SBP > 160 for 2 consecutive measurements, and if one of the following conditions is met: 1) If IV labetolol is ineffective. 2) If HR is under 60. 3) If patient has heart block, COPD or asthma. If both labetalol and hydralazine ineffective, notify anesthesia provider. 1 ml HYDROmorphone hydrochloride 1 mg/ml cartridge (6 sources) Opioid Agonist Start: 04-14-2024 End: 04-14-2024 0.5 mg, IntraVENous, Every 5 min PRN, severe pain (7-10), Starting on Sat04/14/24 at 0915, For 4 doses, Recovery (only), Phase I and Phase II- Initial therapy for severe pain (7-10). Restricted to a 90 minute time frame starting when the patient can verbally state their pain score. If after 2 doses the pain score does not decrease by more than one point, then call the provider. If oral meds are utilized, do not return to initial therapy medications. Start: 08-16-2022 End: 08-16-2022 HYDROmorphone (Dilaudid) inj ection 0.5 mg Start: 08-16-2022 End: 08-16-2022 HYDROmorphone (Dilaudid) inj ection 0.25 mg 1 ml ketorolac tromethamine 15 mg/ml cartridge (2 sources) Nonsteroidal Anti-inflammatory Drug, Cyclooxygenase Inhibitor Start: 10-19-2023 End: 10-19-2023 ketorolac (Toradol) injection 15 mg 10 ml lidocaine hydrochloride 10 mg/ml injection (12 sources) Antiarrhythmic, Amide Local Anesthetic Start: 01-31-2024 End: 01-31-2024 lidocaine (Xylocaine) 1 % injection 1 mL Start: 01-31-2024 End: 01-31-2024 1 mL, IntraDERmal, Once, On Sat01/31/24 at 1630, For 1 dose Start: 03-15-2023 End: 03-15-2023 lidocaine (Xylocaine) 1 % in jection 7 mL Start: 07-25-2022 End: 07-25-2022 lidocaine (Xylocaine) 1 % in jection 8 mL lisinopril 10 mg oral tablet (4 sources) Angiotensin Converting Enzyme Inhibitor Start: 01-03-2021 End: 01-09-2021 take 1 tablet by mouth once daily Lisinopril 10 mg tablet Discontinued 10 mg PO DAILY 30 11January 03, 2021 12:00am January 09, 2021 2:39pm 1 ml LORazepam 2 mg/ml injection (4 sources) Benzodiazepine Start: 04-14-2024 End: 04-14-2024 0.5 mg, IntraVENous, Once PRN, for anxiety or muscle spasm., Starting on Sat04/14/24 at 0915, For 1 dose, Recovery (only), For IV doses dilute dose with 1ml NS. Start: 08-16-2022 End: 08-16-2022 LORazepam (Ativan) injection 0.5 mg methylPREDNISolone 4 mg oral tablet (20 sources) Corticosteroid Start: 11-30-2024 End: 01-25-2025 take 1 tablet by mouth once Methylprednisolone (Medrol (Rosalio)) 4 mg tablets,dose pack Discontinued 0 PO per package directions November 30, 2024 12:00am January 25, 2025 2:32pm PO PER PKG DIR Start: 04-20-2024 End: 05-27-2024 methylPREDNISolone (Medrol D [place]) 4 MG tablets Take as directed on package 1 tablet 04/27/2024 05/27/2024 Active Start: 02-25-2024 End: 03-26-2024 methylPREDNISolone (Medrol D [place]) 4 MG tablets Take as directed on package 1 tablet 02/25/2024 03/26/2024 Active Start: 03-20-2023 End: 07-01-2023 methylPREDNISolone (Medrol D [place]) 4 MG tablets Follow schedule on package instructions 1 each 0 03/20/2023 07/01/2023 Discontinued 2 ml metoclopramide 5 mg/ml prefilled syringe (2 sources) Dopamine-2 Receptor Antagonist Start: 08-16-2022 End: 08-16-2022 metoclopramide (Reglan) injection 5 mg morphine injection 2 mg (2 sources) Start: 04-14-2024 End: 04-15-2024 morphine injection 2 mg naloxone hydrochloride 40 mg/ml nasal spray (20 sources) Opioid Antagonist Start: 04-15-2024 End: 04-15-2025 naloxone (Narcan) 4 mg/0.1 mL nasal spray Administer 1 spray (4 mg) into affected nostril(s) as needed for respiratory depression or opioid reversal. May repeat every 2-3 minutes if needed, alternating nostrils, until medical assistance becomes available. 2 each 04/15/2024 08/10/2024 Discontinued (Therapy completed) Start: 04-15-2024 End: 04-15-2024 Start: 08-16-2022 End: 08-10-2024 naloxone (Narcan) 4 mg/0.1 m L nasal spray instill 1 spray in 1 nostril if needed for OPIOID OVERDOSE may re... (REFER TO PRESCRIPTION NOTES). 08/16/2022 08/10/2024 Discontinued (Therapy completed) Start: 08-16-2022 End: 08-16-2022 naloxone (Narcan) 4 mg/0.1 m L nasal spray Indications: Peroneal tendon tear, right, initial encounter Administer 1 spray (4 mg) into affected nostril(s) Once for 1 dose. May repeat every 2-3 minutes if needed, alternating nostrils, until medical assistance becomes available. 2 each 0 08/16/2022 08/16/2022 naproxen 500 mg oral tablet (7 sources) Nonsteroidal Anti-inflammatory Drug Start: 04-27-2019 End: 08-23-2020 take 1 tablet by mouth twice daily Naproxen 500 MG tablet Discontinued 500 mg PO TWICE A DAY June 04, 2019 1:00am August 23, 2020 3:54pm 2 ml ondansetron 2 mg/ml injection (20 sources) Serotonin-3 Receptor Antagonist Start: 10-19-2023 End: 10-19-2023 ondansetron (Zofran) injection 4 mg Start: 10-19-2023 End: 10-19-2023 ondansetron (Zofran) injecti on 4 mg Start: 10-19-2023 End: 10-26-2023 take 1 tablet by mouth every eight hours as needed for nausea and vomiting ondansetron ODT (Zofran-ODT) 4 MG disintegrating tablet Take 1 tablet (4 mg) by mouth every 8 hours as needed for nausea or vomiting for up to 7 days. 12 tablet 0 10/19/2023 10/26/2023 Active Start: 08-01-2023 End: 08-08-2023 take 1 tablet by mouth every eight hours as needed for nausea and vomiting and nausea and nausea ondansetron ODT (Zofran-ODT) 4 MG disintegrating tablet Indications: Nausea Take 1 tablet (4 mg) by mouth every 8 hours as needed for nausea or vomiting for up to 7 days. 20 tablet 0 08/01/2023 08/08/2023 Active Start: 08-16-2022 End: 08-23-2022 take 1 tablet by mouth every eight hours as needed for nausea and nausea, then take 1 tablet by mouth every eight hours as needed for nausea and nausea ondansetron ODT (Zofran-ODT) 4 MG disintegrating tablet Indications: Postoperative Nausea and Vomiting Take 1 tablet (4 mg) by mouth every 8 hours as needed for nausea or vomiting for up to 7 days. Take 1 tablet by mouth once every 8 hours as needed for nausea. 21 tablet 0 08/16/2022 08/23/2022 Active Start: 08-16-2022 End: 08-16-2022 ondansetron (Zofran) injecti on 4 mg Start: 11-24-2021 End: 08-01-2023 ondansetron ODT (Zofran-ODT) 8 MG disintegrating tablet DISSOLVE 1 TABLET ON TONGUE 3 TIMES DAILY NEEDED FOR NAUSEA OR VOMITING 0 11/24/2021 08/01/2023 Discontinued Start: 07-17-2019 ondansetron (Z OFRAN) 4 MG tablet Start: 06-04-2019 End: 08-23-2020 take 1 tablet by mouth every eight hours as needed for nausea Ondansetron 4 MG tablet Discontinued 4 mg PO EVERY 8 HOURS NEEDED as needed for Nausea June 04, 2019 1:00am August 23, 2020 3:54pm ondansetron ODT (Zofran-ODT) disintegrating tablet 4 mg (2 sources) Start: 04-14-2024 End: 04-15-2024 take 1 tablet by mouth every eight hours as needed for nausea and vomiting ondansetron ODT (Zofran-ODT) disintegrating tablet 4 mg pantoprazole 40 mg delayed release oral tablet (20 sources) Proton Pump Inhibitor Start: 04-15-2024 End: 04-15-2024 take 40 mg by mouth once daily before breakfast 40 mg, Oral, Daily before breakfast, First dose on Sat04/15/24 at 0600, Phase II/On Unit, Substituted for lansoprazole (Prevacid). Do not crush, chew, or split. Start: 01-21-2022 End: 10-19-2023 take 1 tablet by mouth in the morning pantoprazole (ProtoNix) 40 MG EC tablet Take 40 mg by mouth in the morning. 0 01/21/2022 10/19/2023 Discontinued phenol 14 mg/ml mucosal spray (2 sources) Start: 04-14-2024 End: 04-15-2024 1 spray, Mouth/Throat, Every 2 hour PRN, sore throat, Starting on Sat04/14/24 at 1528, Phase II/On Unit, Instruct patient to spit out after 15 seconds. polyethylene glycol [id number] [id number] mg powder for oral solution (2 sources) Osmotic Laxative Start: 04-14-2024 End: 04-15-2024 17 g, Oral, Daily, First dose on Sat04/14/24 at 1600, Phase II/On Unit, Bowel Regimen - for prevention of constipation. predniSONE 20 mg oral tablet (17 sources) Start: 02-19-2024 End: 02-26-2024 take 1 tablet by mouth once daily predniSONE (Deltasone) 20 MG tablet Take 1 tablet (20 mg) by mouth daily for 7 days. 7 tablet 02/19/2024 02/26/2024 Start: 01-16-2024 End: 02-19-2024 take 1 tablet by mouth once daily predniSONE (Deltasone) 10 MG tablet Take 1 tablet (10 mg) by mouth daily. 15 tablet 01/16/2024 02/19/2024 Discontinued Start: 01-10-2024 take 1 tablet by feli once daily predniSONE (Deltasone) 5 MG tablet Take 1 tablet (5 mg) by mouth daily. 20 tablet 01/10/2024 Active Start: 08-01-2023 End: 08-06-2023 take 2 tablets by mouth once daily predniSONE (Deltasone) 20 MG tablet Indications: COPD with acute exacerbation (HCC) Take 2 tablets (40 mg) by mouth daily for 5 days. 10 tablet 0 08/01/2023 08/06/2023 Active pregabalin 50 mg oral capsule (4 sources) Start: 08-23-2020 End: 08-31-2020 take 1 capsule by mouth at bedtime Pregabalin 50 mg capsule Discontinued 50 mg PO AT BEDTIME August 23, 2020 12:00am August 31, 2020 11:40am 5 ml sodium chloride 9 mg/ml injection (20 sources) Start: 04-14-2024 End: 04-15-2024 10 mL, IntraVENous, Every 12 hours scheduled (2 times per day), First dose on Sat04/14/24 at 2100, Phase II/On Unit Start: 04-14-2024 End: 04-15-2024 take 75 mL intravenously every hour 75 mL/hr, IntraVENous, Continuous, Starting on Sat04/14/24 at 1530, Phase II/On Unit Start: 04-14-2024 End: 04-15-2024 Start: 04-14-2024 End: 04-15-2024 Start: 10-19-2023 End: 10-19-2023 sodium chloride 0.9 % bolus 1,000 mL Start: 08-16-2022 End: 08-16-2022 sodium chloride 0.9 % infusi on Start: 08-16-2022 End: 08-16-2022 take 5-40 mL intravenously every twelve hours sodium chloride 0.9% (NS) flush 5-40 mL sucralfate 1000 mg oral tablet (1 source) Aluminum Complex Start: 03-08-2022 End: 06-01-2022 take 1 tablet by mouth once daily sucralfate (Carafate) 1 g tablet Take 1 g by mouth Nightly. 0 03/08/2022 06/01/2022 Discontinued (Med list cleanup) tiotropium (Spiriva Respimat) 2.5 MCG/ACT inhaler 2 puff (2 sources) Start: 04-14-2024 End: 04-15-2024 tiotropium (Spiriva Respimat) 2.5 MCG/ACT inhaler 2 puff Turmeric extract (20 sources) Start: 01-10-2022 End: 01-25-2025 Turmeric 400 mg capsule Discontinued mg PO January 10, 2022 12:00am January 25, 2025 2:31pm Start: 01-10-2022 Turmeric 400 m g capsule Active mg PO January 10, 2022 12:00am End: 10-19-2023 take 1 capsule by mouth once daily in the morning Turmeric 500 MG capsule Take by mouth every morning. 0 10/19/2023 Discontinued take 1 capsule by mo uth once daily in the morning Turmeric 500 MG capsule Take by mouth every morning. 0 Active Turmeric 500 MG capsule Take by mouth. 0 Active take 1 capsule by mo uth once daily turmeric 500 MG CAPS Take by mouth daily 0 Active vitamin b12 2.5 mg oral tablet (20 sources) Vitamin B12 Start: 01-10-2022 End: 05-28-2024 take 1 tablet by mouth once daily Cyanocobalamin (Vitamin B-12) 2,500 mcg tablet Discontinued 2500 ug PO DAILY January 10, 2022 12:00am May 28, 2024 12:25pm cyanocobalamin ( Vitamin B-12) 100 MCG tablet Take 50 mcg by mouth in the morning. Active Cyanocobalamin ( B-12 PO) Take by mouth 0 Active Problems Active Problems Problem Classification Problem Date Documented Da te Episodic/Chronic Abdominal pain (14 sources) Left upper quadrant pain; Translations: [Left upper quadrant pain] Onset: 2 Episodic Anxiety disorders (20 sources) Anxiety disorder, unspecified; Translations: [Anxiety] Onset: 5 09-07-2018 Chronic Cardiac dysrhythmias (7 sources) Palpitations; Translations: [Palpitations] 09-30-2024 Episodic Chronic obstructive pulmonary disease and bronchiectasis (20 sources) Chronic obstructive pulmonary disease, unspecified; Translations: [Moderate chronic obstructive pulmonary disease] Onset: 7 09-28-2016 Chronic Conditions associated with dizziness or vertigo (8 sources) Lightheadedness; Translations: [Dizziness and giddiness] 01-08-2022 Episodic Coronary atherosclerosis and other heart disease (20 sources) Atherosclerotic heart disease of [place] coronary artery without angina pectoris; Translations: [Coronary arteriosclerosis] Onset: 5 09-28-2016 Chronic Diabetes mellitus without complication (20 sources) Type 2 diabetes mellitus without complications; Translations: [Diabetic on diet only] Onset: 5 01-28-2019 Chronic Disorders of lipid metabolism (20 sources) Hyperlipidemia, unspecified; Translations: [Mixed hyperlipidemia] Onset: 5 Resolved: 6 12-09-2015 Chronic Diverticulosis and diverticulitis (6 sources) Diverticulosis of large intestine without perforation or abscess without bleeding; Translations: [Diverticulitis] Onset: 2 Chronic Esophageal disorders (20 sources) Gastro-esophageal reflux disease without esophagitis; Translations: [Gastroesophageal reflux disease] Onset: 5 12-27-2014 Chronic Essential hypertension (7 sources) Essential hypertension; Translations: [Essential (primary) hypertension] 09-30-2024 Chronic Malaise and fatigue (8 sources) Fatigue; Translations: [Other fatigue] 01-10-2022 Episodic Nausea and vomiting (7 sources) Nausea with vomiting, unspecified; Translations: [Nausea] Onset: 8 08-01-2023 Episodic Nonspecific chest pain (5 sources) Chest pain; Translations: [Chest pain, unspecified] Onset: 5 01-08-2022 Episodic Osteoarthritis (20 sources) Degenerative joint disease involving multiple joints; Translations: [Polyosteoarthritis, unspecified] Onset: 7 04-02-2017 Chronic Osteoarthritis (7 sources) Osteoarthritis of right acromioclavicular joint; Translations: [Osteoarthritis of right AC (acromioclavicular) joint] Onset: 8 03-05-2018 Other acquired deformities (1 source) Disorder of ankle joint; Translations: [Other specified acquired deformities of musculoskeletal system] 08-09-2023 Episodic Other and ill-defined heart disease (7 sources) Diastolic dysfunction; Translations: [Other ill-defined heart diseases] 09-30-2024 Chronic Other and ill-defined heart disease (1 source) Other ill-defined heart diseases; Translations: [Other ill-defined heart diseases] Onset: 5 Chronic Other and unspecified benign neoplasm (2 sources) Hemangioma of other sites; Translations: [Hemangioma of other sites] Onset: 2 Episodic Other and unspecified benign neoplasm (3 sources) History of polyp of colon; Translations: [History of colon polyps] 11-10-2024 Episodic Other connective tissue disease (1 source) Dysfunction of posterior tibial tendon of right foot; Translations: [Posterior tibial tendinitis, right leg] Episodic Other connective tissue disease (3 sources) Pain of bilateral hands; Translations: [Pain in right hand] 01-10-2024 Episodic Other connective tissue disease (4 sources) Bilateral hand weakness; Translations: [Other symptoms and signs involving the musculoskeletal system] 01-10-2024 Episodic Other connective tissue disease (2 sources) Cramp in lower limb; Translations: [Cramp and spasm] 01-25-2025 Episodic Other connective tissue disease (1 source) Cramp and spasm; Translations: [Cramp and spasm] Onset: 5 Episodic Other connective tissue disease (2 sources) Bilateral rotator cuff tendinitis; Translations: [Tendonitis of both rotator cuffs] Onset: 0 03-29-2020 Other ear and sense organ disorders (1 source) Bilateral tinnitus; Translations: [Tinnitus, bilateral] 08-23-2023 Episodic Other gastrointestinal disorders (20 sources) Irritable bowel syndrome; Translations: [Irritable bowel syndrome without diarrhea] Onset: 5 08-23-2017 Chronic Other gastrointestinal disorders (6 sources) Diarrhea, unspecified; Translations: [Personal history of other diseases of the digestive system] Onset: 8 Episodic Other gastrointestinal disorders (4 sources) Oropharyngeal dysphagia; Translations: [Dysphagia, oropharyngeal phase] 05-11-2024 Episodic Other inflammatory condition of skin (20 sources) Scalp psoriasis; Translations: [Psoriasis, unspecified] Onset: 9 09-07-2018 Chronic Other liver diseases (2 sources) Liver disease, unspecified; Translations: [Liver disease, unspecified] Onset: 2 Chronic Other liver diseases (5 sources) Disease of liver; Translations: [Other specified diseases of liver] Onset: 5 11-10-2024 Chronic Other liver diseases (1 source) Other specified diseases of liver; Translations: [Other specified diseases of liver] Onset: 5 Chronic Other nervous system disorders (20 sources) Cervical myelopathy; Translations: [Disease of spinal cord, unspecified] Onset: 0 09-10-2019 Chronic Other nervous system disorders (1 source) Carpal tunnel syndrome of right wrist; Translations: [Carpal tunnel syndrome, right upper limb] 01-31-2024 Chronic Other nervous system disorders (2 sources) Disease of spinal cord, unspecified; Translations: [Disease of spinal cord, unspecified (HCC)] Onset: 2 Chronic Other nervous system disorders (2 sources) Other chronic postprocedural pain; Translations: [Other chronic postprocedural pain] Onset: 4 Chronic Other nervous system disorders (1 source) Paresthesia of hand ; Translations: [Anesthesia of skin] 01-31-2024 Episodic Other nervous system disorders (2 sources) Impairment of balance; Translations: [Other abnormalities of gait and mobility] 02-19-2024 Episodic Other nervous system disorders (1 source) Abnormal gait; Translations: [Unsteadiness on feet] 07-31-2024 Episodic Other non-traumatic joint disorders (1 source) Arthropathy of multiple joints; Translations: [Arthropathy, unspecified] 07-31-2024 Chronic Other non-traumatic joint disorders (2 sources) Pain in right ankle and joints of right foot; Translations: [Pain in right ankle] Onset: 2 Episodic Other non-traumatic joint disorders (4 sources) Pain in right knee; Translations: [Pain in joint, lower leg] Episodic Other non-traumatic joint disorders (1 source) Chronic ankle pain; Translations: [Pain in right ankle and joints of right foot] 07-18-2023 Episodic Other non-traumatic joint disorders (2 sources) Arthritis of bilateral acromioclavicular joints; Translations: [Arthritis of both acromioclavicular joints] Onset: 0 03-29-2020 Rheumatoid arthritis and related disease (6 sources) Rheumatoid arthritis, unspecified; Translations: [Rheumatoid arthritis of multiple joints] Onset: 8 01-10-2024 Chronic Screening and history of mental health and substance abuse codes (3 sources) Tobacco use and exposure - finding 07-29-2024 Chronic Screening and history of mental health and substance abuse codes (11 sources) Tobacco smoking behavior - finding; Translations: [Personal history of nicotine dependence] Onset: 5 02-26-2024 Episodic Spondylosis; intervertebral disc disorders; other back problems (2 sources) Lumbar spondylosis; Translations: [Spondylosis without myelopathy or radiculopathy, lumbar region] 03-15-2023 Chronic Sprains and strains (10 sources) Tendon injury - lower limb; Translations: [Strain of muscle(s) and tendon(s) of peroneal muscle group at lower leg level, right leg, initial encounter] Episodic Substance-related disorders (5 sources) Tobacco user; Translations: [Nicotine dependence, unspecified, uncomplicated] 07-31-2024 Chronic Substance-related disorders (1 source) H/O: drug dependency; Translations: [Personal history of nicotine dependence] Episodic Unclassified (1 source) Patient encounter status; Translations: [Encounter for screening mammogram for breast cancer] Unclassified (1 source) Personal history of colon polyps, unspecified; Translations: [Personal history of colon polyps, unspecified] Onset: Viral infection (3 sources) Disease caused by 2019-nCoV; Translations: [COVID-19] 07-01-2023 Episodic Past or Other Problems Problem Classification Problem Date Documented Da te Episodic/Chronic Allergic reactions (2 sources) Allergy status to other drugs, medicaments and biological substances status; Translations: [Allergy status to oth drug/meds/biol subst status] Onset: 08-18-2017 Episodic Contraceptive and procreative management (2 sources) Tubal ligation status; Translations: [Tubal ligation status] Onset: 08-18-2017 Episodic Headache, including migraine (2 sources) Headache; Translations: [Headache] Onset: 08-18-2017 Episodic Other aftercare (2 sources) intermediate (current) use of non-steroidal anti-inflammatories (NSAID); Translations: [intermediate (current) use of non-steroidal non-inflam (NSAID)] Onset: 08-18-2017 Episodic Other connective tissue disease (2 sources) Fibromyalgia; Translations: [Fibromyalgia] Onset: 08-18-2017 Episodic Other connective tissue disease (20 sources) Bilateral rotator cuff tendinitis; Translations: [Other shoulder lesions, right shoulder] Onset: 03-29-2020 03-29-2020 Episodic Other connective tissue disease (4 sources) Pain of left hand; Translations: [Pain in left hand] Onset: 01-16-2024 12-17-2023 Episodic Other connective tissue disease (3 sources) Trochanteric bursitis of left hip; Translations: [Trochanteric bursitis, left hip] Episodic Other connective tissue disease (2 sources) Pain in right hand; Translations: [Pain in right hand] Onset: 01-16-2024 Episodic Other connective tissue disease (1 source) Pain in left hand; Translations: [Pain in left hand] Onset: 01-16-2024 Episodic Other connective tissue disease (2 sources) Other symptoms and signs involving the musculoskeletal system; Translations: [Other symptoms and signs involving the musculoskeletal system] Onset: 01-16-2024 Episodic Other gastrointestinal disorders (2 sources) Dysphagia, oropharyngeal phase; Translations: [Dysphagia, oropharyngeal phase] Onset: 05-11-2024 Episodic Other liver diseases (2 sources) Hepatomegaly, not elsewhere classified; Translations: [Hepatomegaly, not elsewhere classified] Onset: 06-27-2021 Episodic Other nervous system disorders (2 sources) Other abnormalities of gait and mobility; Translations: [Other abnormalities of gait and mobility] Onset: 02-19-2024 Episodic Other nervous system disorders (2 sources) Anesthesia of skin; Translations: [Anesthesia of skin] Onset: 01-31-2024 Episodic Other nervous system disorders (2 sources) Paresthesia of skin; Translations: [Paresthesia of skin] Onset: 01-31-2024 Episodic Other non-traumatic joint disorders (9 sources) Hip pain; Translations: [Pain in unspecified hip] Episodic Other non-traumatic joint disorders (2 sources) Pain in unspecified hip; Translations: [Pain in unspecified hip] Onset: 09-13-2021 Episodic Other non-traumatic joint disorders (4 sources) Pain of right wrist; Translations: [Pain in right wrist] Onset: 12-03-2023 12-03-2023 Episodic Other non-traumatic joint disorders (4 sources) Pain of left wrist; Translations: [Pain in left wrist] Onset: 12-17-2023 12-17-2023 Episodic Other non-traumatic joint disorders (1 source) Pain in left wrist; Translations: [Pain in left wrist] Onset: 12-17-2023 Episodic Other non-traumatic joint disorders (1 source) Pain in right wrist; Translations: [Pain in right wrist] Onset: 12-03-2023 Episodic Other screening for suspected conditions (not mental disorders or infectious disease) (9 sources) Other abnormal and inconclusive findings on diagnostic imaging of breast; Translations: [Abnormal findings on diagnostic imaging of other parts of digestive tract] Onset: 06-27-2021 Episodic Other skin disorders (20 sources) Loss of hair; Translations: [Nonscarring hair loss, unspecified] Onset: 09-07-2018 09-07-2018 Episodic Other skin disorders (2 sources) Localized swelling, mass and lump, right upper limb; Translations: [Localized swelling, mass and lump, right upper limb] Onset: 08-24-2021 Episodic Other upper respiratory infections (11 sources) Acute bacterial sinusitis; Translations: [Acute sinusitis, unspecified] Onset: 09-07-2018 Resolved: 09-10-2019 09-07-2018 Episodic Residual codes; unclassified (2 sources) Other specified postprocedural states; Translations: [Other specified postprocedural states] Onset: 01-31-2024 Episodic Spondylosis; intervertebral disc disorders; other back problems (20 sources) Pain in left sacroiliac joint; Translations: [Sacrococcygeal disorders, not elsewhere classified] Onset: 01-31-2024 03-15-2023 Episodic Unclassified (4 sources) Acquired absence of both cervix and uterus; Translations: [Acquired absence of other specified parts of digestive tract] Onset: 08-18-2017 Episodic Unclassified (1 source) Personal history of colon polyps, unspecified; Translations: [Personal history of colon polyps, unspecified] Onset: 11-10-2024 Results Test Name Value Interpretation Reference Range Facility Anion gap in Serum or Plasma Ordered By: Jorge Stack on 01-25-2025 Anion gap [Moles/Vol] 10 mmol/L 10-15 [facility] BUN/creatinine ratioOrdered By: Jorge Stack on 01-25-2025 Urea nitrogen/Creatinine [Mass ratio] 25.8 mg/mg High 03-22 [facility] Basic Metabolic Profile (BMP )on 01-25-2025 BUN/CRE 25.8 RATIO High 10-20 [facility] Comment on above: Performed By: #### L 500.2500, L501.5200, L501.9985 #### [facility] [address] [place], [address] Calcium [Mass/Vol] 9.8 mg/dL Normal 7.6-11.0 [facility] Comment on above: Performed By: #### L 500.2500, L501.5200, L501.9985 #### [facility] [address] [place], [address] Chloride [Moles/Vol] 102 mmol/L Normal 98-108 [facility] Comment on above: Performed By: #### L 500.2500, L501.5200, L501.9985 #### [facility] [address] [place], [address] CO2 [Moles/Vol] 25.0 mmol/L Normal 21.0-32.0 [facility] Comment on above: Performed By: #### L 500.2500, L501.5200, L501.9985 #### [facility] [address] [place], [address] Creatinine [Mass/Vol] 0.47 mg/dL Low 0.70-1.20 [facility] Comment on above: Performed By: #### L 500.2500, L501.5200, L501.9985 #### [facility] [address] [place], [address] GAP 10 Normal 5-15 [facility] Comment on above: Performed By: #### L 500.2500, L501.5200, L501.9985 #### [facility] [address] [place], [address] GFR/1.73 sq M.predicted among non-blacks MDRD (S/P/Bld) [Vol rate/Area] 99 mL/min/{1.73_m2} Normal >60 [facility] Comment on above: Result Comment: mL/m in/1.73m2 CKD-EPI Creatinine Equation (2020) Performed By: #### L 500.2500, L501.5200, L501.9985 #### [facility] [address] [place], [address] Glucose [Mass/Vol] 83 mg/dL Normal 70-99 [facility] Comment on above: Performed By: #### L 500.2500, L501.5200, L501.9985 #### [facility] [address] [place], [address] Potassium [Moles/Vol] 4.3 mmol/L Normal 3.3-5.1 [facility] Comment on above: Performed By: #### L 500.2500, L501.5200, L501.9985 #### [facility] [address] [place], [address] Sodium [Moles/Vol] 137 mmol/L Normal 133-145 [facility] Comment on above: Performed By: #### L 500.2500, L501.5200, L501.9985 #### [facility] [address] [place], [address] Urea nitrogen [Mass/Vol] 12 mg/dL Normal 4-19 [facility] Comment on above: Performed By: #### L 500.2500, L501.5200, L501.9985 #### [facility] [address] [place], [address] Carbon dioxide, total [Moles /volume] in Central venous bloodOrdered By: Jorge Stack on 01-25-2025 CO2 [Moles/Vol] 25.0 mmol/L 21.0-32.0 [facility] Cardiology Visit Reporton Cardiology Visit Report [facility] 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 She now agrees to undergo evaluation via surveillance stress test. 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 Martir Keene MD * Signed HPI HPI History of Present Illness Details: Chantal Linares is a 74-year-old female who presents to office today for follow-up for monitoring of her cardiovascular health. Patient established with us for concerns of chest discomfort and palpitations. Patient had a heart catheterization in 2014 which demonstrated mild to moderate disease with a 40% RCA stenosis and 25% LAD stenosis. Patient underwent myocardial perfusion stress test in September 2020 with no evidence of ischemia. Echocardiogram in 2020 demonstrated ejection fraction of 65% with stage II diastolic dysfunction. Patient has history of hyperlipidemia, fibromyalgia, and tobacco abuse. Upon presentation today, patient report lower extremity pain described as muscle cramping in both calves fro about 7 months now, most noticed at night time; however, can be noticed to worsen with walking or standing at times. She reports occasional "pins and needles" pain in her bilateral lower extremities and sometimes her left arm that began 2 weeks ago. She noticed L-sided chest pain described as aching that can last for a couple of minutes and then resolves. She reports her chest pain does not have a correlation with activity. She does have chronic dizziness that is unchanged. Further ROS below. Intake Vital Signs 11/30/24 14:18 01/25/25 09:00 Height 5 ft 7 in 5 ft 7 in Weight: 160 lb 4 oz 160 lb BMI 25.0 25.0 BP 122/76 H 132/88 H Blood Pressure Location Lt brachial Position Sitting Sitting Respiration 18 18 Pulse 91 86 Pulse Source Monitor Temp 98.5 F Pulse Oximetry (%) 94 97 Oxygen Delivery Method room air Intake Visit Reasons: Leg Pain Plastic Joint Maker Required: No Is patient in pain?: No Allergies lisinopril Allergy (Severe, Verified 01/25/25 14:30) N/V, diarrhea, abdominal pain Medications ???Medication ???Instructions ???Recorded ???Confirmed ???Type albuterol sulfate 90 mcg/actuation 2 puff IH Q6H PRN PRN Sob /Or 0 06/04/19 09/29/24 History aerosol inhaler Wheezing alprazolam 0.25 mg tablet 0.25 mg PO QHS PRN Sleep 06/04/19 01/25/25 History qhzj-ptu-tearg-cellulos h-mwmxdazt-esdj-pectin 1,000 mg PO DAILY 07/2301/25/25 History 1,000 mg tablet fluticasone furoate 100 1 ea IH DAILY 06/04/19 01/25/25 Hi story mcg-vilanterol 25 mcg/dose inhalation powder tizanidine 4 mg tablet 4 mg PO Q6H PRN Spasms 06/04/19 History ketoconazole 2 % shampoo 1 applic topical Q2W PRN 08/31/20 09/29/24 History sertraline 100 mg tablet 100 mg PO BID 12/16/20 01/25/25 Hi story tramadol 50 mg tablet 50 mg PO DAILY PRN 12/16/20 History gabapentin 100 mg capsule 300 mg PO BID PRN 05/28/24 5 History losartan 50 mg tablet See Rx Instructions .Route 5 01/25/25 Rx .COMPLEX #90 tabs montelukast 10 mg tablet 10 mg PO QDAY 09/29/24 01/25/25 Hi story (Singulair) ezetimibe 10 mg tablet 10 mg PO QDAY #30 tabs 10/13/24 Rx lansoprazole 30 mg capsule,delayed 30 mg PO QDAY 01/25/25 01/25/25 History release (Prevacid) rosuvastatin 40 mg tablet 40 mg PO QDAY #90 tabs 01/25/25more content not included)... Normal [facility] Chloride assayOrdered By: Vinicio Stack on 01-25-2025 Chloride [Moles/Vol] 102 mmol/L 98-108 [facility] Glomerular filtration rate ( GFR) estimation/1.73 sq m using serum, plasma, or whole bOrdered By: Jorge Stack on 01-25-2025 GFR/1.73 sq M.predicted among non-blacks MDRD (S/P/Bld) [Vol rate/Area] 99 mL/min/{1.73_m2} >60 [facility] Comment on above: mL/min/1.73m2 CKD-EP I Creatinine Equation (2020) Hemoglobin A1con 01-25-2025 HbA1c (Bld) [Mass fraction] 6.1 % High <=5.6 [facility] Comment on above: Result Comment: Norm al < 5.7 % Prediabetic 5.7 - 6.4 % Diabetic >or= 6.5 % Please note range changes. Performed By: #### L 500.2500, L501.5200, L501.9985 #### [facility] [address] [place], [place], [address] Hemoglobin A1c percentageOrd ered By: Jorge Stack on 01-25-2025 HbA1c (Bld) [Mass fraction] 6.1 % High <5.7 [facility] Comment on above: Normal < 5.7 % Predi abetic 5.7 - 6.4 % Diabetic >or= 6.5 % Please note range changes. Magnesiumon 01-25-2025 Magnesium [Mass/Vol] 2.1 mg/dL Normal 1.5-2.2 [facility] Comment on above: Performed By: #### L 500.2500, L501.5200, L501.9985 #### [facility] [address] [place], [place], [address] Magnesium measurement (mass/ volume)Ordered By: Jorge Stack on 01-25-2025 Magnesium (Unsp spec) [Mass/Vol] 2.1 mg/dL 1.5-2.2 [facility] Potassium measurement (mass/ volume)Ordered By: Jorge Stack on 01-25-2025 Potassium (Unsp spec) [Mass/Vol] 4.3 mmol/L 3.3-5.1 [facility] Serum creatinine measurement (mass/volume)Ordered By: Jorge Stack on 01-25-2025 Creatinine [Mass/Vol] 0.47 mg/dL Low 0.70-1.20 [facility] Serum glucose measurement (m ass/volume)Ordered By: Jorge Stack on 01-25-2025 Glucose [Mass/Vol] 83 mg/dL 70-99 [facility] Serum or plasma calcium patrick urement (mass/volume)Ordered By: Jorge Stack on 01-25-2025 Calcium [Mass/Vol] 9.8 mg/dL 7.6-11.0 [facility] Serum or plasma urea nitroge n measurement (mass/volume)Ordered By: Jorge Stack on 01-25-2025 Urea nitrogen [Mass/Vol] 12 mg/dL 4-19 [facility] Sodium levelOrdered By: Mary Stack on 01-25-2025 Sodium [Moles/Vol] 137 mmol/L 133-145 [facility] Urgent Care Visit Reporton 0 11-30-2024 Urgent Care Visit Report [facility] [address], [address] [place] [id number] OFFICE VISIT Date of Service: 11/30/24 MR#: [id number] Acct: [id number] Name: CHANTAL LINARES Rep #: [id number] : 1950 Provider: JARED Mar Age/Sex: 74/F Location: [facility] Status: Signed Intake Vital Signs 09/28/24 07:34 11/30/24 14:18 Height 5 ft 7 in 5 ft 7 in Weight: 166 lb 160 lb 4 oz BMI 25.9 25.0 BP 136/88 H 122/76 H Blood Pressure Location Lt brachial Position Sitting Sitting Respiration 18 18 Pulse 81 91 Pulse Source Monitor Temp 98.5 F Temp Source Oral Pulse Oximetry (%) 95 94 Oxygen Delivery Method room air Intake Visit Reasons: COUGH, SORE THROAT Accompanied by: Self Allergies lisinopril Allergy (Severe, Verified 11/30/24 14:07) N/V, diarrhea, abdominal pain Medications ???Medication ???Instructions ???Recorded ???Confirmed ???Type albuterol sulfate 90 mcg/actuation 2 puff IH Q6H PRN PRN Sob /Or 0 06/04/19 09/29/24 History aerosol inhaler Wheezing alprazolam 0.25 mg tablet 0.25 mg PO QHS PRN Sleep 06/04/19 11/30/24 History nvft-tdt-bjeqw-cellulos n-crobscno-fwjy-pectin 1,000 mg PO DAILY 07/2311/30/24 History 1,000 mg tablet fluticasone furoate 100 1 ea IH DAILY 06/04/19 09/29/24 Hi story mcg-vilanterol 25 mcg/dose inhalation powder simvastatin 40 mg tablet 40 mg PO QHS 06/04/19 11/30/24 His tory tizanidine 4 mg tablet 4 mg PO Q6H PRN Spasms 06/04/19 History lansoprazole 30 mg capsule,delayed 30 mg PO DAILY 08/23/20 11/30/24 History release ketoconazole 2 % shampoo 1 applic topical Q2W PRN 08/31/20 09/29/24 History sertraline 100 mg tablet 100 mg PO BID 12/16/20 11/30/24 Hi story tramadol 50 mg tablet 50 mg PO DAILY PRN 12/16/20 History turmeric 400 mg capsule mg PO 01/10/22 09/29/24 History gabapentin 100 mg capsule 300 mg PO BID PRN 05/28/24 5 History losartan 50 mg tablet See Rx Instructions .Route 5 11/30/24 Rx .COMPLEX #90 tabs dapagliflozin propanediol 10 mg 10 mg PO QDAY #30 tabs 09/29/24 Rx tablet (Farxiga) montelukast 10 mg tablet 10 mg PO QDAY 09/29/24 11/30/24 Hi story (Singulair) ezetimibe 10 mg tablet 10 mg PO QDAY #30 tabs 10/13/24 Rx amoxicillin 875 mg-potassium 1 tab PO BID #20 tabs 11/30/24 Rx clavulanate 125 mg tablet diclofenac sodium 1 % topical gel 2 g topical ONCE 11/30/24 5 History methylprednisolone 4 mg tablets in See Rx Instructions PO PER PKG D IR 11/30/24 11/30/24 Rx a dose pack (Medrol (Rosalio)) #21 tabs Have you fallen in the past year?: No Nurse's Note: Patient has a cough and Sore throat with a Headache. Patient states she got sick around November 14 she thought she was better for 3 days and then she started getting worse. Patient has sinus pressure and a runny nose. Patient has some wheezing. 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 Hyperlipidemia Anxiety and depression Fibromyalgia Hiatal hernia History of colonic polyps History of diverticulitis IBS (irritable bowel syndrome) Pancreatitis Rheumatoid arthritis History of spinal stenosis Surgical History H/O cervical spine surgery History of cholecystectomy History of open sigmoidectomy History of tonsillectomy and adenoidectomy History of hysterectomy History of left heart catheterization (10/14/14) Family History Mother Heart disease Cancer ovarian Myocardial infarction, Onset Age: 45 Sister Heart disease Myocardial infarction, Onset Age: 40 Grandmother Diabetes Aunt Breast cancer Social History Smoking Status: Current every day smoker alcohol intake: current alcohol intake frequency: holidays/special occasions only substance use type: does not use HPI HPI Details: CHANTAL LINARES, is a 74 F who presents to the office today for [facility] for approximately 2-1/2-week history of progressively worsening facial pressure/congestion with purulent postnasal drip/cough and bilateral ear pressure/ irritated throat/ headache. No complaints of fever, chills, myalgias, fatigue, runny nose, or nausea/vomiting/diarrhe a. No complaints of chest pain/shortness of breath/dyspnea on exertion - though admits scant wheezing. Unsure if close contacts w (more content not included)... Normal [facility] CT LUNG SCREENING LOW DOSEon 11-11-2024 CT LUNG SCREENING LOW DOSE This is a summary report. The complete report is available in the patient's medical record. If you cannot access the medical record, please contact the sending organization for a detailed fax or copy. Patient Name: CHANTAL LINARES : 1950 Exam Date/Time: 11/10/2024 13:58 Procedure: CT LUNG SCREENING LOW DOSE Ordering Provider: KEENE KORY Reason For Exam: Lung cancer screening, >= 20 pk-yr smoking history (Age >= 50y) CT CHEST SCREENING WITHOUT CONTRAST CLINICAL INDICATION: Tobacco use, screening for lung cancer. Lung cancer screening, >= 20 pk-yr smoking history (Age >= 50y). Former smoker. TECHNIQUE: Low-dose axial CT images of the thorax from the lung apices through the bases were obtained. Dose reduction was employed with automated exposure control. COMPARISON: Correlation is made with ultrasound abdomen limited dated 06/27/2021. FINDINGS: Pulmonary nodules: *All nodule measurements are mean axial diameter and saved on soto images* There are no suspicious pulmonary nodules or masses. Lungs: Mild paraseptal and centrilobular emphysematous changes. Clear. No endobronchial lesions. Cardiomediastinum: Normal heart size with no pericardial effusion. Aorta and pulmonary arteries normal in caliber. Mild coronary artery atherosclerotic calcifications. Lymph nodes: No enlarged mediastinal, hilar, or axillary lymph nodes. Upper Abdomen: There are multiple hypodensities within the liver. Largest hypodensity measures 6.2 x 4.2 x 5.6 cm medial right hyperechoic mass and 2.9 x 3.9 x 3.9 cm medial left hepatic mass which are nonspecific, but likely related to known history of hepatic hemangiomas. No acute process identified in the upper abdomen. Soft tissues and Osseous structures: Unremarkable IMPRESSION: 1. No lung nodules identified. 2. No acute pulmonary process. 3. Mild coronary artery atherosclerotic calcifications. 4. Probable multiple hepatic hypodensities, unchanged and compatible with history of hepatic hemangiomas ASSESSMENT CATEGORY: Lung-RADS Category 1 Recommend continued annual low-dose screening CT in 12 months. No other clinically significant findings. Lung-RADS Version 2022 Assessment Categories. Release date: Apr 2022 Category 0 - Incomplete Part of lungs cannot be evaluated Findings suggestive of an inflammatory or infectious process Category 1 - Negative - Continue annual screening No nodules Nodules with benign characteristics (complete, central, popcorn Ca++) or fat Category 2 - Benign appearance or behavior - Continue annual screening Perifissural nodule(s) < 10 mm at baseline or new with oval, lentiform or triangular shape Solid nodule(s): < 6 mm at baseline or new < 4 mm Part solid nodule(s): < 6 mm mean diameter at baseline Nonsolid nodule(s) (GGN): 30 mm and unchanged or slowly growing Airway nodule in subsegmental branch Category 3 or 4 nodules unchanged for > 6 months Category 3 - Probably benign finding(s) - 6 month follow up Solid nodule(s): 6 to < 8 mm at baseline OR new 4 mm to < 6 mm Part solid nodule(s) 6 mm total diameter with solid component < 6 mm OR new < 6 mm total diameter Nonsolid nodule(s) (GGN) > 30 mm on baseline or new Atypical cyst Category 4a nodule unchanged for 3 months Category 4A - Suspicious - 3 month follow up or PET/CT when >8mm Solid nodule(s): 8 to < 15 mm at baseline OR growing < 8 mm OR new 6 to <8 mm Part solid nodule(s): > 6 mm with solid component > 6 mm to < 8 mm OR with a new or growing < 4 mm solid component Airway nodule - segmental, more proximal than baseline or new Atypical cyst with thick wall or multilocular or changed Category 4B - Suspicious - chest CT with or without contrast, PET/CT and/or tissue sampling depending on the *probability of malignancy and comorbidities. PET/CT may be used when there is a > 8 mm solid component. For new large nodules that develop on an annual repeat screening CT, a [address] may be recommended. Airway nodule growing Solid nodule(s): > 15 mm OR new or growing, and > 8 mm Part solid nodule(s) with: a solid component > 8 mm OR a new or growing > 4mm solid component Atypical cyst with growth Category 4X - Suspicious - (same work up as Category 4B) Category 3 or 4 nodules with additional features or imaging findings that increases the suspicion of malignancy - spiculation, rapid growth or associated lymph node enlargement Modifier to add to Category 0-4: Category S - Clinically or potentially significant non lung cancer related findings Report Dictated on Electronically Signed By: Jagdish Romero DO Electronically Signed Date/Time: 11/11/2024 4:57 PM EDT FORMER SMOKER QUIT IN 2023 AFTER 40 YEARS 0.5PPD [facility] Normal [facility] US ABDOMEN LIMITEDon 025 US ABDOMEN LIMITED Patient Name: CHANTAL ROGERS : 1950 Exam Date/Time: 11/10/2024 13:35 Procedure: US ABDOMEN LIMITED Ordering Provider: SANTILLAN JENNIFER Reason For Exam: Hepatic Cyest, Ernst's Esophagus, GERD, Hx of polyp of Colon ULTRASOUND ABDOMEN RUQ CLINICAL HISTORY: Hepatic cysts, Ernst's Esophagus, GERD, Hx of polyp of Colon COMPARISON: Several prior studies including ultrasound 06/27/2021 TECHNIQUE: Grayscale sonographic images were obtained of the right upper quadrant. Color Doppler was utilized. FINDINGS: Limitations: Overlying bowel gas limits evaluation to some extent. Liver: Upper limits of normal in size measuring about 17 cm craniocaudal. Background hepatic parenchyma is likely within normal limits. Redemonstration of multiple lesions of varying echotexture including several echogenic lesions measuring up to at least 2.7 x 2.6 cm. Heterogeneous isoechoic lesion right hepatic lobe measures 6.1 x 5.1 cm, likely also present on prior study. Biliary system: No sonographic evidence of intrahepatic biliary ductal dilatation. The common bile duct measures up to 11 mm in caliber. Gallbladder: Status post cholecystectomy. Pancreas: Partially obscured by bowel gas. Visualized portions demonstrating a normal sonographic appearance. Right Kidney: The right kidney measures 10.5 cm in length. Limited survey of the right kidney demonstrates no obstructive uropathy. Cortical thickness and echotexture are likely within normal limits. Additional findings: None. IMPRESSION: 1. Multiple hepatic lesions measuring up to 6.1 x 5.1 cm which have been previously characterized as hemangiomas. Multiplicity and differences in technique limits evaluation and direct comparison to some extent. Recommend continued imaging surveillance as per clinical protocol. Multiphase MRI could be considered for more definitive characterization. 2. Mild dilatation of the common bile duct which is probably due to prior cholecystectomy and patient's age. If there is concern for obstructive biliary process, consider correlation with MRI/MRCP. Report Dictated on Electronically Signed By: Rigoberto Gong MD Electronically Signed Date/Time: 11/11/2024 11:01 AM EDT [facility] US Abdomen limitedon 11-11-2 025 1. Multiple hepatic lesions measuring up to 6.1 x 5.1 cm which have been previously characterized as hemangiomas. Multiplicity and differences in technique limits evaluation and direct comparison to some extent. Recommend continued imaging surveillance as per clinical protocol. Multiphase MRI could be considered for more definitive characterization. 2. Mild dilatation of the common bile duct which is probably due to prior cholecystectomy and patient's age. If there is concern for obstructive biliary process, consider correlation with MRI/MRCP. Report Dictated on Electronically Signed By: Rigoberto Gong MD Electronically Signed Date/Time: 11/11/2024 11:01 AM EDT [facility] Patient Name: CHANTAL ROGERS : 1950 Exam Date/Time: 11/10/2024 13:35 Procedure: US ABDOMEN LIMITED Ordering Provider: SANTILLAN JENNIFER Reason For Exam: Hepatic Cyest, Ernst's Esophagus, GERD, Hx of polyp of Colon ULTRASOUND ABDOMEN RUQ CLINICAL HISTORY: Hepatic cysts, Ernst's Esophagus, GERD, Hx of polyp of Colon COMPARISON: Several prior studies including ultrasound 06/27/2021 TECHNIQUE: Grayscale sonographic images were obtained of the right upper quadrant. Color Doppler was utilized. FINDINGS: Limitations: Overlying bowel gas limits evaluation to some extent. Liver: Upper limits of normal in size measuring about 17 cm craniocaudal. Background hepatic parenchyma is likely within normal limits. Redemonstration of multiple lesions of varying echotexture including several echogenic lesions measuring up to at least 2.7 x 2.6 cm. Heterogeneous isoechoic lesion right hepatic lobe measures 6.1 x 5.1 cm, likely also present on prior study. Biliary system: No sonographic evidence of intrahepatic biliary ductal dilatation. The common bile duct measures up to 11 mm in caliber. Gallbladder: Status post cholecystectomy. Pancreas: Partially obscured by bowel gas. Visualized portions demonstrating a normal sonographic appearance. Right Kidney: The right kidney measures 10.5 cm in length. Limited survey of the right kidney demonstrates no obstructive uropathy. Cortical thickness and echotexture are likely within normal limits. Additional findings: None. [facility] Jessica Gong MD - 11/11/2024 Patient Name: CHANTAL LINARES : 1950 Exam Date/Time: 11/10/2024 13:35 Procedure: US ABDOMEN LIMITED Ordering Provider: SANTILLAN JENNIFER Reason For Exam: Hepatic Cyest, Ernst's Esophagus, GERD, Hx of polyp of Colon ULTRASOUND ABDOMEN RUQ CLINICAL HISTORY: Hepatic cysts, Ernst's Esophagus, GERD, Hx of polyp of Colon COMPARISON: Several prior studies including ultrasound 06/27/2021 TECHNIQUE: Grayscale sonographic images were obtained of the right upper quadrant. Color Doppler was utilized. FINDINGS: Limitations: Overlying bowel gas limits evaluation to some extent. Liver: Upper limits of normal in size measuring about 17 cm craniocaudal. Background hepatic parenchyma is likely within normal limits. Redemonstration of multiple lesions of varying echotexture including several echogenic lesions measuring up to at least 2.7 x 2.6 cm. Heterogeneous isoechoic lesion right hepatic lobe measures 6.1 x 5.1 cm, likely also present on prior study. Biliary system: No sonographic evidence of intrahepatic biliary ductal dilatation. The common bile duct measures up to 11 mm in caliber. Gallbladder: Status post cholecystectomy. Pancreas: Partially obscured by bowel gas. Visualized portions demonstrating a normal sonographic appearance. Right Kidney: The right kidney measures 10.5 cm in length. Limited survey of the right kidney demonstrates no obstructive uropathy. Cortical thickness and echotexture are likely within normal limits. Additional findings: None. IMPRESSION: 1. Multiple hepatic lesions measuring up to 6.1 x 5.1 cm which have been previously characterized as hemangiomas. Multiplicity and differences in technique limits evaluation and direct comparison to some extent. Recommend continued imaging surveillance as per clinical protocol. Multiphase MRI could be considered for more definitive characterization. 2. Mild dilatation of the common bile duct which is probably due to prior cholecystectomy and patient's age. If there is concern for obstructive biliary process, consider correlation with MRI/MRCP. Report Dictated on Electronically Signed By: Rigoberto Gong MD Electronically Signed Date/Time: 11/11/2024 11:01 AM EDT [facility] US Abdomen limitedOrdered By : Jessica Gong on 11-11-2024 [facility] Work Phone: US Abdomen limitedon 025 Radiology Study observation (narrative) [facility] CBC W Auto Differential pane l (Bld)on 11-03-2024 Basophils (Bld) [#/Vol] 0 10*3/uL 0.0 - 0.2 10*3/uL [facility] Basophils/100 WBC (Bld) 0.3 % 0.0 - 2.0 % [facility] Eosinophils (Bld) [#/Vol] 0 10*3/uL 0.0 - 0.5 10*3/uL [facility] Eosinophils/100 WBC (Bld) 0.4 % 0.0 - 6.0 % [facility] Erythrocyte distribution width (RBC) [Ratio] 13.8 % 11.5 - 15.0 % [facility] Hematocrit (Bld) [Volume fraction] 39.9 % 35.0 - 47.0 % [facility] Hemoglobin (Bld) [Mass/Vol] 13.2 g/dL 11.7 - 16.0 g/dL [facility] Immature granulocytes (Bld) [#/Vol] 0 10*3/uL NINF - 0.1 10*3/uL [facility] Immature granulocytes/100 WBC (Bld) 0.3 % 0.0 - 2.0 % [facility] Interpretation and review of laboratory results Abnormal [facility] Lymphocytes (Bld) [#/Vol] 2.6 10*3/uL 1.0 - 4.3 10*3/uL [facility] Lymphocytes/100 WBC (Bld) 33.6 % 15.0 - 45.0 % [facility] MCH (RBC) [Entitic mass] 30.8 pg 26.0 - 34.0 pg [facility] MCHC (RBC) [Mass/Vol] 33.1 % 30.5 - 36.0 % [facility] MCV (RBC) [Entitic vol] 93.2 fL 77.0 - 99.0 fL [facility] Monocytes (Bld) [#/Vol] 0.4 10*3/uL 0.0 - 0.9 10*3/uL [facility] Monocytes/100 WBC (Bld) 5.8 % 5.0 - 13.0 % [facility] Neutrophils (Bld) [#/Vol] 4.5 10*3/uL 1.8 - 7.5 10*3/uL [facility] Neutrophils/100 WBC (Bld) 59.6 % 38.0 - 82.0 % [facility] Nucleated RBC/100 WBC (Bld) [Ratio] 0 % [facility] Platelet mean volume (Bld) [Entitic vol] 8.7 fL Low 9.0 - 12.7 fL [facility] Comment on above: MPV is a calculated measurement using platelet volume ratio Platelets (Bld) [#/Vol] 361 10*3/uL 140 - 440 10*3/uL [facility] RBC (Bld) [#/Vol] 4.28 10*6/uL 3.80 - 5.2 0 10*6/uL [facility] WBC (Bld) [#/Vol] 7.6 10*3/uL 3.6 - 10.7 10*3/uL [facility] CBC WITH AUTO DIFFERENTIALon 11-03-2024 Basophils (Bld) [#/Vol] 0.0 10*3/uL Normal 0.0-0.2 [facility] Comment on above: Performed By: #### L [id number] #### School Inspector: CHETNA LEMA ([id number]) [facility] ([facility]) [address] [place] [address] Basophils/100 WBC (Bld) 0.3 % Normal 0.0-2.0 [facility] Comment on above: Performed By: #### L [id number] #### School Inspector: CHETNA LEMA ([id number]) [facility] [place] ([facility]) [address] [place] [address] [place] Eosinophils (Bld) [#/Vol] 0.0 10*3/uL Normal 0.0-0.5 [facility] Comment on above: Performed By: #### L [id number] #### School Inspector: CHETNA LEMA ([id number]) [facility] [place] [place] ([place]) [address] [place] [address] [place] Eosinophils/100 WBC (Bld) 0.4 % Normal 0.0-6.0 [facility] Comment on above: Performed By: #### L [id number] #### School Inspector: CHETNA LEMA ([id number]) [facility] ([facility]) [address] [place] [address] Erythrocyte distribution width (RBC) [Ratio] 13.8 % Normal 11.5-15.0 [facility] Comment on above: Performed By: #### L [id number] #### School Inspector: CHETNA LEMA ([id number]) [facility] ([place]) [address] [place] [address] Hematocrit (Bld) [Volume fraction] 39.9 % Normal 35.0-47.0 [facility] Comment on above: Performed By: #### L [id number] #### School Inspector: CHETNA LEMA ([id number]) [facility] [place] ([place]) [address] [place] [address] Hemoglobin (Bld) [Mass/Vol] 13.2 g/dL Normal 11.7-16.0 [facility] Comment on above: Performed By: #### L [id number] #### School Inspector: CHETNA LEMA ([id number]) [facility] [place] [place] ([place]) [address] [place] [address] IMMATURE GRANS % 0.3 % Normal 0.0-2.0 [facility] Comment on above: Performed By: #### L [id number] #### School Inspector: CHETNA LEMA ([id number]) [facility] [place] [place] ([place]) [address] [place] [address] IMMATURE GRANS ABSOLUTE 0.0 10*3/uL Normal <0.1 [facility] Comment on above: Performed By: #### L [id number] #### School Inspector: CHETNA LEMA ([id number]) [facility] [place] ([place]) [address] [place] [address] Lymphocytes (Bld) [#/Vol] 2.6 10*3/uL Normal 1.0-4.3 [facility] Comment on above: Performed By: #### L [id number] #### School Inspector: CHETNA LEMA ([id number]) [facility] [place] ([place]) [address] [place] [address] [place] Lymphocytes/100 WBC (Bld) 33.6 % Normal 15.0-45.0 [facility] Comment on above: Performed By: #### L [id number] #### School Inspector: CHETNA LEMA ([id number]) [facility] [place] ([place]) [address] [place] [address] MCH (RBC) [Entitic mass] 30.8 pg Normal 26.0-34.0 [facility] Comment on above: Performed By: #### L [id number] #### School Inspector: CHETNA LEMA ([id number]) [facility] [place] ([place]) [address] [place] [address] MCHC 33.1 % Normal 30.5-36.0 [facility] Comment on above: Performed By: #### L [id number] #### School Inspector: CHETNA LEMA ([id number]) [facility] [place] [place] ([place]) [address] [place] [address] MCV (RBC) [Entitic vol] 93.2 fL Normal 77.0-99.0 [facility] Comment on above: Performed By: #### L [id number] #### School Inspector: CHETNA LEMA ([id number]) [facility] [place] ([place]) [address] [place] [address] Monocytes (Bld) [#/Vol] 0.4 10*3/uL Normal 0.0-0.9 [facility] Comment on above: Performed By: #### L [id number] #### School Inspector: CHETNA LEMA ([id number]) [facility] [place] ([place]) [address] [place] [address] [place] Monocytes/100 WBC (Bld) 5.8 % Normal 5.0-13.0 [facility] Comment on above: Performed By: #### L [id number] #### School Inspector: CHETNA LEMA ([id number]) [facility] [place] [place] ([place]) [address] [place] [address] NEUTROPHILS ABSOLUTE 4.5 10*3/uL Normal 1.8-7.5 [facility] Comment on above: Performed By: #### L [id number] #### School Inspector: CHETNA LEMA ([id number]) [facility] [place] [place] ([place]) [address] [place] [address] [place] Neutrophils/100 WBC (Bld) 59.6 % Normal 38.0-82.0 [facility] Comment on above: Performed By: #### L [id number] #### School Inspector: CHETNA LEMA ([id number]) [facility] [place] ([place]) [address] [place] [address] NRBC 0.0 /100 WBCs Normal 0.0-2.0 [facility] Comment on above: Performed By: #### L [id number] #### School Inspector: CHETNA LEMA ([id number]) [facility] [place] ([place]) [address] [place] [address] [place] Platelet mean volume (Bld) [Entitic vol] 8.7 fL Low 9.0-12.7 [facility] Comment on above: Result Comment: MPV is a calculated measurement using platelet volume ratio Performed By: #### L [id number] #### School Inspector: CHETNA LEMA ([id number]) [facility] [place] ([place]) [address] [place] [address] [place] Platelets (Bld) [#/Vol] 361 10*3/uL Normal 140-440 [facility] Comment on above: Performed By: #### L [id number] #### School Inspector: CHETNA LEMA ([id number]) [facility] [place] ([place]) [address] [place] [address] [place] RBC (Bld) [#/Vol] 4.28 10*6/uL Normal 3.80-5.20 [facility] Comment on above: Performed By: #### L [id number] #### School Inspector: CHETNA LEMA ([id number]) [facility] [place] [place] ([place]) [address] [place] [address] [place] WBC (Bld) [#/Vol] 7.6 10*3/uL Normal 3.6-10.7 [facility] Comment on above: Performed By: #### L [id number] #### School Inspector: CHETNA LEMA ([id number]) [facility] [place] ([place]) [address] COMPREHENSIVE METABOLIC PANE Abraham 11-03-2024 Albumin [Mass/Vol] 3.9 g/dL Normal 3.4-4.8 [facility] Comment on above: Performed By: #### L [id number] ####School Inspector: CHETNA LEMA ([id number])[facility] ([place])[address] [place] [address] ALP [Catalytic activity/Vol] 75 U/L Normal 40-150 [facility] Comment on above: Performed By: #### L [id number] ####School Inspector: CHETNA LEMA ([id number])[facility] [place] [place] ([place])[address] [place] [address] ALT [Catalytic activity/Vol] 12 U/L Normal <30 [facility] Comment on above: Performed By: #### L [id number] ####School Inspector: CHETNA LEMA ([id number])[facility] [place] [place] ([place])[address] [place] [address] Anion gap [Moles/Vol] 8 mmol/L Normal 3-13 [facility] Comment on above: Performed By: #### L [id number] ####School Inspector: CHETNA LEMA ([id number])[facility] [place] [place] ([place])[address] [place] [address] AST [Catalytic activity/Vol] 18 U/L Normal <34 [facility] Comment on above: Performed By: #### L [id number] ####School Inspector: CHETNA LEMA ([id number])[facility] [place] [place] ([place])[address] [place], [place] [address] [place] Bilirubin [Mass/Vol] mg/dL Normal <1.2 [facility] Comment on above: Performed By: #### L [id number] ####School Inspector: CHETNA LEMA ([id number])[facility] [place] ([place])[address] Calcium [Mass/Vol] 9.4 mg/dL Normal 8.8-10.0 [facility] Comment on above: Performed By: #### L [id number] ####School Inspector: CHETNA LEMA ([id number])[facility] [place] ([place])[address] Chloride [Moles/Vol] 104 mmol/L Normal 98-107 [facility] Comment on above: Performed By: #### L [id number] ####School Inspector: CHETNA LEMA ([id number])[facility] [place] ([place])[address] CO2 [Moles/Vol] 26 mmol/L Normal 23-31 [facility] Comment on above: Performed By: #### L [id number] ####School Inspector: CHETNA LEMA ([id number])[facility] [place] [place] ([place])[address] [place] [address] Creatinine [Mass/Vol] 0.67 mg/dL Normal 0.57-1.11 [facility] Comment on above: Performed By: #### L [id number] ####School Inspector: CHETNA LEMA ([id number])[facility] [place] ([place])[address] GLOMERULAR FILTRATION RATE ML/MIN/1.73 SQ M.PREDICTED >90.0 Normal >60.0 [facility] Comment on above: Result Comment: Calc ulation based on the Chronic Kidney Disease Epidemiology Collaboration (CKD-EPI) equation refit without adjustment for race Performed By: #### L [id number] ####School Inspector: CHETNA LEMA ([id number])[facility] [place] ([place])[address] Glucose [Mass/Vol] 148 mg/dL High 82-115 [facility] Comment on above: Performed By: #### L [id number] ####School Inspector: CHETNA LEMA ([id number])[facility] [place] ([place])[address] Potassium [Moles/Vol] 4.0 mmol/L Normal 3.5-5.1 [facility] Comment on above: Result Comment: [facility] potassium values may be up to 0.5 mmol/L lower than serum values. Performed By: #### L [id number] ####School Inspector: CHETNA LEMA ([id number])[facility] [place] ([place])[address] Protein [Mass/Vol] 6.8 g/dL Normal 6.4-8.3 [facility] Comment on above: Performed By: #### L [id number] ####School Inspector: CEHTNA LMEA ([id number])[facility] [place] [place] ([place])[address] Sodium [Moles/Vol] 138 mmol/L Normal 136-145 [facility] Comment on above: Performed By: #### L [id number] ####School Inspector: CHETNA ELMA ([id number])[facility] [place] [place] ([place])[address] Urea nitrogen [Mass/Vol] 19 mg/dL Normal 9-23 [facility] Comment on above: Performed By: #### L [id number] ####School Inspector: CHETNA LEMA ([id number])[facility] [place] ([place])[address] Comprehensive metabolic 1998 panelon 11-03-2024 Albumin [Mass/Vol] 3.9 g/dL 3.4 - 4.8 g/dL [facility] ALP [Catalytic activity/Vol] 75 U/L 40 - 150 U/L [facility] ALT [Catalytic activity/Vol] 12 U/L NINF - 30 U/L [facility] Anion gap [Moles/Vol] 8 mmol/L 3 - 13 mmol/L [facility] AST [Catalytic activity/Vol] 18 U/L NINF - 34 U/L [facility] Bilirubin [Mass/Vol] mg/dL NINF - 1.2 mg/dL [facility] Calcium [Mass/Vol] 9.4 mg/dL 8.8 - 10. 0 mg/dL [facility] Chloride [Moles/Vol] 104 mmol/L 98 - 10 7 mmol/L [facility] CO2 [Moles/Vol] 26 mmol/L 23 - 31 mmol/L [facility] Creatinine [Mass/Vol] 0.67 mg/dL 0.57 - 1.11 mg/dL [facility] GFR/1.73 sq M.predicted (S/P/Bld) [Vol rate/Area] - PINF [facility] Comment on above: Calculation based on the Chronic Kidney Disease Epidemiology Collaboration (CKD-EPI) equation refit without adjustment for race Glucose [Mass/Vol] 148 mg/dL High 82 - 115 mg/dL [facility] Interpretation and review of laboratory results Abnormal [facility] Potassium [Moles/Vol] 4 mmol/L 3.5 - 5.1 mmol/L [facility] Comment on above: Plasma potassium dayanara ues may be up to 0.5 mmol/L lower than serum values. Protein [Mass/Vol] 6.8 g/dL 6.4 - 8.3 g/dL [facility] Sodium [Moles/Vol] 138 mmol/L 136 - 145 mmol/L [facility] Urea nitrogen [Mass/Vol] 19 mg/dL 9 - 23 mg/dL [facility] Anion gap in Serum or Plasma Ordered By: Jorge Stack on 10-07-2024 Anion gap [Moles/Vol] 9 mmol/L 5-15 [facility] BUN/creatinine ratioOrdered By: Jorge Stack on 10-07-2024 Urea nitrogen/Creatinine [Mass ratio] 30.5 mg/mg [facility] 10- [facility] Basic Metabolic Profile (BMP )on 10-07-2024 BUN/CRE 30.[address] Comment on above: Performed By: #### L 500.2500, L500.3400, L500.4100 #### [facility] Laboratory [address] [place], [address] Calcium [Mass/Vol] 9.4 mg/dL Normal 7.6-11.0 [facility] Comment on above: Performed By: #### L 500.2500, L500.3400, L500.4100 #### [facility] [address] [place], [address] Chloride [Moles/Vol] 103 mmol/L Normal 98-108 [facility] Comment on above: Performed By: #### L 500.2500, L500.3400, L500.4100 #### [facility] [address] [place], [address] CO2 [Moles/Vol] 26.1 mmol/L Normal 21.0-32.0 [facility] Comment on above: Performed By: #### L 500.2500, L500.3400, L500.4100 #### [facility] [address] [place], [address] Creatinine [Mass/Vol] 0.52 mg/dL Low 0.70-1.20 [facility] Comment on above: Performed By: #### L 500.2500, L500.3400, L500.4100 #### [facility] [address] [place], [address] GAP 9 Normal 5-15 [facility] Comment on above: Performed By: #### L 500.2500, L500.3400, L500.4100 #### [facility] [address] [place], [address] GFR/1.73 sq M.predicted among non-blacks MDRD (S/P/Bld) [Vol rate/Area] 97 mL/min/{1.73_m2} Normal >60 [facility] Comment on above: Result Comment: mL/m in/1.73m2 CKD-EPI Creatinine Equation (2020) Performed By: #### L 500.2500, L500.3400, L500.4100 #### [facility] [address] [place], [address] Glucose [Mass/Vol] 106 mg/dL High 70-99 [facility] Comment on above: Performed By: #### L 500.2500, L500.3400, L500.4100 #### [facility] [address] [place], [address] Potassium [Moles/Vol] 4.2 mmol/L Normal 3.3-5.1 [facility] Comment on above: Performed By: #### L 500.2500, L500.3400, L500.4100 #### [facility] [address] [place], [address] Sodium [Moles/Vol] 138 mmol/L Normal 133-145 [facility] Comment on above: Performed By: #### L 500.2500, L500.3400, L500.4100 #### [facility] [address] [place], [address] Urea nitrogen [Mass/Vol] 16 mg/dL Normal 4-19 [facility] Comment on above: Performed By: #### L 500.2500, L500.3400, L500.4100 #### [facility] [address] [place], [address] Bilirubin directOrdered By: Jorge Stack on 10-07-2024 Bilirubin.direct [Mass/Vol] 0.13 mg/dL 0.00-0.30 [facility] Bilirubin, totalOrdered By: Jorge Stack on 10-07-2024 Bilirubin [Mass/Vol] 0.31 mg/dL 0.00-1.30 [facility] Calculated very low density lipoprotein (VLDL) cholesterol measurementOrdered By: Jorge Stack on 10-07-2024 Calculated very low density lipoprotein (VLDL) cholesterol measurement 20 mg/dL 5-40 [facility] Carbon dioxide, total [Moles /volume] in Central venous bloodOrdered By: Jorge Stack on 10-07-2024 CO2 [Moles/Vol] 26.1 mmol/L 21.0-32.0 [facility] Chloride assayOrdered By: Vinicio Stack on 10-07-2024 Chloride [Moles/Vol] 103 mmol/L 98-108 [facility] Glomerular filtration rate ( GFR) estimation/1.73 sq m using serum, plasma, or whole bOrdered By: Jorge Stack on 10-07-2024 GFR/1.73 sq M.predicted among non-blacks MDRD (S/P/Bld) [Vol rate/Area] 97 mL/min/{1.73_m2} >60 [facility] Comment on above: mL/min/1.73m2 CKD-EP I Creatinine Equation (2020) LDL calc ser/plasOrdered By: Jorge Stack on 10-07-2024 Cholesterol in LDL [Mass/Vol] 116 mg/dL [facility] Comment on above: Hffkshbwuc=636-566 m g/dL & Higher Kvbq=291 mg/dL or greater Laboratory - Chemistry and C hemistry - challengeOrdered By: Jorge Stack on 10-07-2024 AST [Catalytic activity/Vol] 15 U/L <32 [facility] Lipid Profileon 10-07-2024 CHOL:HDL 3.03 Normal [facility] Comment on above: Performed By: #### L 500.2500, L500.3400, L500.4100 #### [facility] Laboratory [address] [place], [place], [id number] Cholesterol [Mass/Vol] 203 mg/dL High <=200 [facility] Comment on above: Result Comment: Chol esterol level, Desirable <200 mg/dL Borderline high cholesterol 200-239 mg/dL High cholesterol >=240 mg/dL Recommendations of the NCEP Adult Treatment Panel for the following risk-cutoff thresholds for the [place] Stateless population. Performed By: #### L 500.2500, L500.3400, L500.4100 #### [facility] [address] [place], [address] Cholesterol in HDL [Mass/Vol] 67 mg/dL Normal [facility] Comment on above: Result Comment: Lynn onal Cholesterol Education Program (NCEP) guidelines: <40 mg/dL: Low HDL-cholesterol (major risk factor for CHD) >= 60 mg/dL: High HDL-cholesterol (negative risk factor for CHD) HDL-cholesterol is affected by a number of factors, e.g. smoking, exercise, hormones, sex and age. Performed By: #### L 500.2500, L500.3400, L500.4100 #### [facility] Laboratory [address] [place], [address] Cholesterol in LDL [Mass/Vol] 116 mg/dL Normal [facility] Comment on above: Result Comment: Bord exfbar=340-851 mg/dL Higher Jujb=882 mg/dL or greater Performed By: #### L 500.2500, L500.3400, L500.4100 #### [facility] Laboratory [address] [place], [address] Cholesterol in VLDL [Mass/Vol] 20 mg/dL Normal 5-40 [facility] Comment on above: Performed By: #### L 500.2500, L500.3400, L500.4100 #### [facility] Laboratory [address] [place], [address] Triglyceride [Mass/Vol] 102 mg/dL Normal [facility] Comment on above: Result Comment: The drugs N-Acetylcysteine and Metamizole may falsely depress this assay. Normal range: <150 mg/dL Borderline High: 150-199 mg/dL High: 200-499 mg/dL Very High: >500 mg/dL Performed By: #### L 500.2500, L500.3400, L500.4100 #### [facility] Laboratory [address] [place], [address] Liver Profileon 10-07-2024 Albumin [Mass/Vol] 4.2 g/dL Normal 3.4-4.8 [facility] Comment on above: Performed By: #### L 500.2500, L500.3400, L500.4100 #### [facility] Laboratory [address] [place], [address] ALK PHOS 74 U/L Normal 35-104 [facility] Comment on above: Performed By: #### L 500.2500, L500.3400, L500.4100 #### [facility] Laboratory [address] [place], [address] ALT [Catalytic activity/Vol] 6 U/L Normal <=34 [facility] Comment on above: Performed By: #### L 500.2500, L500.3400, L500.4100 #### [facility] Laboratory [address] [place], [address] AST [Catalytic activity/Vol] 15 U/L Normal <=31 [facility] Comment on above: Performed By: #### L 500.2500, L500.3400, L500.4100 #### [facility] Laboratory [address] [place], [address] Bilirubin [Mass/Vol] 0.31 mg/dL Normal 0.00-1.30 [facility] Comment on above: Performed By: #### L 500.2500, L500.3400, L500.4100 #### [facility] Laboratory [address] [place], [address] Bilirubin.direct [Mass/Vol] 0.13 mg/dL Normal 0.00-0.30 [facility] Comment on above: Performed By: #### L 500.2500, L500.3400, L500.4100 #### [facility] Laboratory [address] [place], [address] Globulin (S) [Mass/Vol] 2.6 g/dL Normal 2.2-4.2 [facility] Comment on above: Performed By: #### L 500.2500, L500.3400, L500.4100 #### [facility] Laboratory [address] [place], [address] T PROT 6.8 g/dL Normal 5.9-8.4 [facility] Comment on above: Performed By: #### L 500.2500, L500.3400, L500.4100 #### [facility] Laboratory [address] [place], [address] Potassium measurement (mass/ volume)Ordered By: Jorge Stack on 10-07-2024 Potassium (Unsp spec) [Mass/Vol] 4.2 mmol/L 3.3-5.1 [facility] Screening total cholesterol/ high density lipoprotein (HDL) cholesterol ratioOrdered By: Jorge Stack on 10-07-2024 Cholesterol.total/Chol esterol in HDL [Mass ratio] 3.03 {ratio} [facility] Serum creatinine measurement (mass/volume)Ordered By: Jorge Stack on 10-07-2024 Creatinine [Mass/Vol] 0.52 mg/dL Low 0.70-1.20 [facility] Serum globulin measurementOr dered By: Jorge Stack on 10-07-2024 Globulin (S) [Mass/Vol] 2.6 g/dL 2.2-4.2 [facility] Serum glucose measurement (m ass/volume)Ordered By: Jorge Stack on 10-07-2024 Glucose [Mass/Vol] 106 mg/dL High 70-99 [facility] Serum or plasma alanine shaw otransferase (ALT) measurementOrdered By: Jorge Stack on 10-07-2024 ALT [Catalytic activity/Vol] 6 U/L <35 [facility] Serum or plasma albumin patrick urement (mass/volume)Ordered By: Jorge Stack on 10-07-2024 Albumin [Mass/Vol] 4.2 g/dL 3.4-4.8 [facility] Serum or plasma alkaline rosaura sphatase measurementOrdered By: Jorge Stack on 10-07-2024 ALP [Catalytic activity/Vol] 74 U/L 35-104 [facility] Serum or plasma calcium patrick urement (mass/volume)Ordered By: Jorge Stack on 10-07-2024 Calcium [Mass/Vol] 9.4 mg/dL 7.6-11.0 [facility] Serum or plasma cholesterol in HDL measurement (mass/volume)Ordered By: Jorge Stack on 10-07-2024 Cholesterol in HDL [Mass/Vol] 67 mg/dL >40 [facility] Comment on above: National Cholesterol Education Program (NCEP) guidelines:<40 mg/dL: Low HDL-cholesterol (major risk factor for CHD)>= 60 mg/dL: High HDL-cholesterol (negative risk factor for CHD)HDL-cholesterol is affected by a number of factors, e.g. smoking, exercise, hormones, sex and age. Serum or plasma cholesterol measurement (mass/volume)Ordered By: Jorge Stack on 10-07-2024 Cholesterol [Mass/Vol] 203 mg/dL High <201 [facility] Comment on above: Cholesterol level, D esirable <200 mg/dLBorderline high cholesterol 200-239 mg/dLHigh cholesterol >=240 mg/dLRecommendations of the NCEP Adult Treatment Panel for the following risk-cutoff thresholds for the [place] Stateless population. Serum or plasma urea nitroge n measurement (mass/volume)Ordered By: Jorge Stack on 10-07-2024 Urea nitrogen [Mass/Vol] 16 mg/dL 4-19 [facility] Sodium levelOrdered By: Mary Stack on 10-07-2024 Sodium [Moles/Vol] 138 mmol/L 133-145 [facility] Total proteinOrdered By: Rajiv Stack on 10-07-2024 Protein [Mass/Vol] 6.8 g/dL 5.9-8.4 [facility] Triglycerides measurementOrd ered By: Jorge Stack on 10-07-2024 Triglyceride [Mass/Vol] 102 mg/dL <199 [facility] Comment on above: The drugs N-Acetylcy steine and Metamizole may falsely depress this assay. Normal range: <150 mg/dLBorderline High: 150-199 mg/dLHigh: 200-499 mg/dLVery High: >500 mg/dL Cardiology Visit Reporton Cardiology Visit Report [facility] [address] [place] [address] OFFICE VISIT Date of Service: 09/29/24 MR#: [id number] Acct: [id number] Name: CHANTAL LINARES Rep #: [id number] : 1950 Provider: JARED Zee Age/Sex: 74/F Location: [facility] Status: Signed HPI HPI History of Present Illness Details: Chantal Linares is a 74-year-old female who presents to office today for follow-up for monitoring of her cardiovascular health. Patient established with us for concerns of chest discomfort and palpitations. Patient had a heart catheterization in 2014 which demonstrated mild to moderate disease with a 40% RCA stenosis and 25% LAD stenosis. Patient underwent myocardial perfusion stress test in September 2020 with no evidence of ischemia. Echocardiogram in 2020 demonstrated ejection fraction of 65% with stage II diastolic dysfunction. Patient has history of hyperlipidemia, fibromyalgia, and tobacco abuse. Since last seen, approximately 4 months ago, patient reports doing fairly well. She has noticed decreased energy over the last 6 months and relates this to her not having an active routine. She reports noticing dizziness described as tipping over feeling that occurs a few times per week. She reports chronic palpitations that occur occasionally, most noticed while sitting watching TV. She reports that these are not bothersome nor frequent. Patient reports she has not smoking in February. Home BP readings have been normal and sometimes lower than 120 systolic. Patient reports she does not routinely exercise but she keeps herself busy with working with her plants and cleaning her house. Patient reports some shortness of breath with activity, reported to be chronic, and is felt to be related to her COPD. This is unchanged. Intake Vital Signs 05/28/24 07:22 09/28/24 07:34 Height 5 ft 7 in 5 ft 7 in Weight: 165 lb 166 lb BMI 25.8 25.9 BP 129/84 H 136/88 H Blood Pressure Location Lt brachial Lt brachial Position Sitting Sitting Respiration 18 18 Pulse 81 81 Pulse Source Monitor Monitor Pulse Oximetry (%) 97 95 Intake Visit Reasons: 4 M FU Plastic Joint Maker Required: No Is patient in pain?: No Allergies lisinopril Allergy (Severe, Verified 09/29/24 14:08) N/V, diarrhea, abdominal pain Medications ???Medication ???Instructions ???Recorded ???Confirmed ???Type albuterol sulfate 90 mcg/actuation 2 puff IH Q6H PRN PRN Sob /Or 0 06/04/19 09/29/24 History aerosol inhaler Wheezing alprazolam 0.25 mg tablet 0.25 mg PO QHS PRN Sleep 06/04/19 09/29/24 History lenn-ifr-yczna-cellulos h-ongnfeqx-vypq-pectin 1,000 mg PO DAILY 07/2309/29/24 History 1,000 mg tablet fluticasone furoate 100 1 ea IH DAILY 06/04/19 09/29/24 Hi story mcg-vilanterol 25 mcg/dose inhalation powder simvastatin 40 mg tablet 40 mg PO QHS 06/04/19 09/29/24 His tory tizanidine 4 mg tablet 4 mg PO Q6H PRN Spasms 06/04/19 History lansoprazole 30 mg capsule,delayed 30 mg PO DAILY 08/23/20 09/29/24 History release ketoconazole 2 % shampoo 1 applic topical Q2W PRN 08/31/20 09/29/24 History sertraline 100 mg tablet 100 mg PO BID 12/16/20 09/29/24 Hi story tramadol 50 mg tablet 50 mg PO DAILY PRN 12/16/20 History turmeric 400 mg capsule mg PO 01/10/22 09/29/24 History gabapentin 100 mg capsule 300 mg PO BID PRN 05/28/24 5 History losartan 50 mg tablet See Rx Instructions .Route 5 09/29/24 Rx .COMPLEX #90 tabs dapagliflozin propanediol 10 mg 10 mg PO QDAY #30 tabs 09/29/24 Rx tablet (Farxiga) montelukast 10 mg tablet 10 mg PO QDAY 09/29/24 09/29/24 Hi story (Singulair) Ejection fraction %: 65 Have you fallen in the past year?: No PFSH Medical History Fatigue Diastolic dysfunction DDD (degenerative disc disease) History of non-ST elevation myocardial infarction (NSTEMI) (10/10/14) Nicotine dependence Spinal stenosis Liver hemangioma Atherosclerosis of coronary artery of [place] heart without angina pectoris Hyperlipidemia Anxiety and depression Fibromyalgia Hiatal hernia History of colonic polyps History of diverticulitis IBS (irritable bowel syndrome) Pancreatitis Rheumatoid arthritis History of spinal stenosis Surgical History H/O cervical spine surgery History of cholecystectomy History of open sigmoidectomy History of tonsillectomy and adenoidectomy History of hysterectomy History of left heart catheterization (10/14/14) Family History Mother Heart disease Cancer ovarian Myocardial infarction, Onset Age: 45 Sister Heart disease Myocar (more content not included)... Normal [facility] 36 09-14-2024 36 OARRs Reviewed. Normal [facility] We have been unable to reach your patient to schedule their testing. Test Name: CT lung Screening Low Dose 1st Attempt: 1st attempt, left VM 09.01.24 TP 2nd Attempt: 2nd attempt [employer] message sent - TE to office 09/02/24 AAD Normal [facility] DBT Breast - bilateral scree hubertn 09-02-2024 No mammographic evidence of malignancy. ASSESSMENT: Category 1 Negative RECOMMENDATION: Routine screening mammogram in 1 year. Bilateral CANCER RISK ASSESSMENT: This risk assessment is based on patient provided information collected in a risk survey taken at the time of this examination. LIFETIME BREAST CANCER RISK: Shayan 8: 2% - If greater than or equal to 20%, consider annual mammogram and annual screening Breast MRI or follow up in high risk clinic. Is the patient at elevated risk based on the HBOC criteria? Yes (Hereditary Breast and Ovarian Cancer) - If Yes, consider genetic counseling and testing with high risk follow up Is the patient at elevated risk based on the Borrero Syndrome criteria? No - If Yes, consider genetic counseling and testing with high risk follow up. Report Dictated on Electronically Signed By: Tila Banks DO Electronically Signed Date/Time: 09/02/2024 1:56 PM EDT [facility] Patient Name: CHANTAL ROGERS : 1950 Exam Date/Time: 09/02/2024 13:24 Procedure: BI MAMMOGRAM SCREENING TOMOSYNTHESIS BILATERAL Ordering Provider: KEENE KORY Reason For Exam: This exam was performed at [facility] [address] [place] [address] RISK ALERT: The Cancer Risk Assessment scores below the recommendation of this report contain an outcome above the normal risk range. PATIENT CANCER HISTORY: No Personal History of Cancer FAMILY CANCER HISTORY: Mother Ovarian Carcinoma age 82 Maternal Aunt Breast Cancer age 55 TECHNIQUE: 2D Bilateral CC and MLO 3D Bilateral CC and MLO Images reviewed with CAD Markings on images: BB's = Nipples, skin lesions Open hopland = Palpable Line = Scar COMPARISON: 08/24/2021, 08/05/2020, 03/22/2019, 11/15/2016, 10/24/2016 TISSUE DENSITY: BIRADS B - There are scattered areas of fibroglandular density. FINDINGS: No suspicious masses, architectural distortions or suspiciously clustered microcalcifications. No skin thickening or nipple retraction. No significant change from prior studies. [facility] Tila Banks DO - 09/02/2024 Patient Name: CHANTAL LINARES : 1950 Exam Date/Time: 09/02/2024 13:24 Procedure: BI MAMMOGRAM SCREENING TOMOSYNTHESIS BILATERAL Ordering Provider: KEENE KORY Reason For Exam: This exam was performed at [facility] [address] [place] [address] RISK ALERT: The Cancer Risk Assessment scores below the recommendation of this report contain an outcome above the normal risk range. PATIENT CANCER HISTORY: No Personal History of Cancer FAMILY CANCER HISTORY: Mother Ovarian Carcinoma age 82 Maternal Aunt Breast Cancer age 55 TECHNIQUE: 2D Bilateral CC and MLO 3D Bilateral CC and MLO Images reviewed with CAD Markings on images: BB's = Nipples, skin lesions Open hopland = Palpable Line = Scar COMPARISON: 08/24/2021, 08/05/2020, 03/22/2019, 11/15/2016, 10/24/2016 TISSUE DENSITY: BIRADS B - There are scattered areas of fibroglandular density. FINDINGS: No suspicious masses, architectural distortions or suspiciously clustered microcalcifications. No skin thickening or nipple retraction. No significant change from prior studies. IMPRESSION: No mammographic evidence of malignancy. ASSESSMENT: Category 1 Negative RECOMMENDATION: Routine screening mammogram in 1 year. Bilateral CANCER RISK ASSESSMENT: This risk assessment is based on patient provided information collected in a risk survey taken at the time of this examination. LIFETIME BREAST CANCER RISK: Shayan 8: 2% - If greater than or equal to 20%, consider annual mammogram and annual screening Breast MRI or follow up in high risk clinic. Is the patient at elevated risk based on the HBOC criteria? Yes (Hereditary Breast and Ovarian Cancer) - If Yes, consider genetic counseling and testing with high risk follow up Is the patient at elevated risk based on the Borrero Syndrome criteria? No - If Yes, consider genetic counseling and testing with high risk follow up. Report Dictated on Electronically Signed By: Tila Banks DO Electronically Signed Date/Time: 09/02/2024 1:56 PM EDT [facility] Study observation (narrative) [facility] DBT Breast - bilateral scree ningOrdered By: Tila Banks on 09-02-2024 [facility] Work Phone: Office Visiton 08-10-2024 Follow-up visit [id number] Chantal Linares 1950 F Date Provider Department Center 08/10/2024 [facility] None Family History Problem Relation Age of Onset Heart attack Mother Cancer Mother Heart disease Mother Hypertension Mother Dementia Father Rheum arthritis Father Osteoporosis Father Atrial fibrillation Father Other Father Comments: CHF Heart disease Father Hypertension Father Heart attack Sister Heart disease Sister Hypertension Sister Hypertension Brother No Known Problems Son No Known Problems Son Cancer Maternal Grandfather Comments: Leukemia Diabetes Paternal Grandmother Cancer Other Comments: unknown origin--2 aunts Diabetes Other Comments: grandmother Cancer Sister Hyperlipidemia Sister Family Status - Relation Status Age at Mother Father Alive Sister Alive Brother Alive Son Alive Son Alive Maternal Grandmother Maternal Grandfather Paternal Grandmother Paternal Grandfather Other Sister Level of Service:20642 DE OFFICE/OUTPATIENT ESTABLISHED MOD MDM 30 MIN Reason for Visit and Comments: Follow-up [956165] - Patient present for ACDF 3 month follow up. Reports continued intermittent difficulty swallowing. Also notes muscle tightness on the left side Normal [facility] Progress Noteon 08-10-2024 Progress Note NEUROSURGERY and SPI NE POST-OP NOTE Patient Name: Chantal Linares Patient : 1950 PCP: Martir Keene MD History of Present Ilness: Patient is post-op revision 5-7 ACDF with extension of fusion C4-C5 performed on 04/14/24. Overall she is recovering in a usual fashion. She reports difficulty with swallowing; states saliva gets stuck. She did not go to speech therapy that was previously recommended. She is attempting stretch exercises for her neck that she obtained on line. She reports muscle tightness that she has been using muscle relaxants for. Past Medical History: Past Medical History: Diagnosis Date Acute bacterial sinusitis 09/07/2018 Adverse effect of anesthesia 2022 Do not want versed before going to operating room. Do not like effect Anxiety CAD (coronary artery disease) Chronic pain disorder 2019 Lumbar Spondolithesis, shoulder, arms left and right. Hands and wrists both hips Colon polyp 2011 COPD (chronic obstructive pulmonary disease) (HCC) Depression Diastolic dysfunction, left ventricle Diverticulosis Dizziness 2004 Ocassionaly. Worse since cervical radiculopathr and cervical myelopathy Fibromyalgia GERD (gastroesophageal reflux disease) Hiatal hernia 2010 Heartburn often especially under stress Hyperlipidemia Hypertension 2021 On losarton 50mg Irritable bowel syndrome Joint pain 1999 Back, ankles, wrists, hands, knees,neck Osteochondral lesion of talar dome SCHEDULED FOR THE SURGERY ON 08/16/22 AT [facility] (postoperative nausea and vomiting) Prediabetes controlled by diet Rheumatoid arthritis (HCC) Shortness of breath 2019 Spondylolisthesis, lumbar region Past Surgical History: Past Surgical History: Procedure Laterality Date ANKLE ARTHROPLASTY 2022 Repair of peroneal tendon ANKLE SURGERY Right 08/16/2022 Right repair peroneal tendon and ankle arthroscopic debridement talar osteochondral lesion - Dr. Jimenez ANTERIOR CERVICAL DISCECTOMY W/ FUSION 04/14/2024 4-5 APPENDECTOMY CARDIAC CATHETERIZATION 10 11 2014 NO INTERVENTION CATARACT EXTRACTION CERVICAL FUSION 2015 Dr Dietz CHOLECYSTECTOMY COLON SURGERY 03 16 2013 approx; sigmoidectomy diverticulosis COLONOSCOPY 01 06 2013 colonic polyps, diverticulosis, hemorrhoids DILATION AND CURETTAGE OF UTERUS HYSTERECTOMY NECK SURGERY C5-C7 ACDF (Dr. Adam) TONSILLECTOMY AND ADENOIDECTOMY (HISTORICAL) TUBAL LIGATION UPPER GASTROINTESTINAL ENDOSCOPY 01 06 2013 see report Home Medications: Prior to Admission medications Medication Sig Start Date End Date Taking? Authorizing Provider albuterol (ProAir HFA) 108 (90 Base) MCG/ACT inhaler Inhale 2 puffs every 4 hours as needed for wheezing or shortness of breath. Patient not taking: Reported on 04/14/2024 08/01/23 07/31/24 Martir Keene MD ALPRAZolam (Xanax) 0.25 MG tablet take 1 tablet by mouth NIGHTLY NEEDED FOR SLEEP OR ANXIETY FOR UP TO 90 DAYS Patient not taking: Reported on 04/14/2024 06/01/22 Martir Keene MD cyanocobalamin (Vitamin B-12) 100 MCG tablet Take 50 mcg by mouth in the morning. Historical Provider, Fluticasone Furoate-Vilanterol (BREO ELLIPTA IN) inhale 1 puff by mouth INTO THE LUNGS daily Inhalation for 30 Historical Provider, gabapentin (Neurontin) 100 MG capsule Take 300 mg by mouth 2 times daily. 03/12/22 Historical Provider, lansoprazole (Prevacid) [address] capsule Take 30 mg by mouth in the morning. 02/11/22 Historical Provider, losartan (Cozaar) 50 MG tablet Nightly. 02/06/22 Historical Provider, methylPREDNISolone (Medrol Dospak) 4 MG tablets Take as directed on package 04/20/24 05/20/24 Tatiana Adam APRN - [employer]LECT[employer]ER montelukast (Singulair) 10 MG tablet Take 1 tablet (10 mg) by mouth Nightly. 09/16/23 09/15/24 Martir Keene MD naloxone (Narcan) 4 mg/0.1 mL nasal spray instill 1 spray in 1 nostril if needed for OPIOID OVERDOSE may re... (REFER TO PRESCRIPTION NOTES). 08/16/22 Historical Provider, naloxone (Narcan) 4 mg/0.1 mL nasal spray Administer 1 spray (4 mg) into affected nostril(s) as needed for respiratory depression or opioid reversal. May repeat every 2-3 minutes if needed, alternating nostrils, until medical assistance becomes available. 04/15/24 04/15/25 Malaika Pack PA-C oxyCODONE (Roxicodone) 5 MG immediate release tablet Take 1 tablet (5 mg) by mouth every 6 hours as needed for severe pain (7-10) (breakthrough post op pain) for up to 7 days. 04/27/24 05/04/24 IVY Michael CNP sertraline (Zoloft) 100 MG tablet take 2 tablets by mouth once daily 05/22/23 Martir Keene MD simvastatin (Zocor) 40 MG tablet take 1 tablet by mouth once daily 06/26/23 Martir Keene MD tiZANidine (Zanaflex) 4 MG tablet Take 1 tablet (4 mg) by mouth every 8 hours as needed for muscle spasms for up to 10 days. 04/27/24 05/07/24 IVY Michael CNP varenicline (Chantix Starting Month ) 0.5 MG X 11 & 1 MG X 42 tabl (more content not included)... Normal [facility] 37 07-29-2024 37 Personalized Preventative Plan for Chantal Linares - 07/29/2024 Medicare offers a range of preventative health benefits. Some of the tests and screenings are paid in full while others may be subject to a deductible, co-insurance, and / or copay. Some of these benefits include a comprehensive review of your medical history including lifestyle, illnesses that may run in your family, and various assessments and screenings as appropriate. After reviewing your medical record and screening and assessments performed today, your provider may have ordered immunizations, labs, imaging, and / or referrals for you. A list of these orders (if applicable) as well as your Preventative Care list are included within your After Visit Summary for your review. Other Preventative Recommendations: A preventive eye exam by an eyewear manufacturing supervisor is recommended every 1-2 years to screen for glaucoma, cataracts, macular degeneration, and other eye disorders. A preventive dental visit is recommended every 6 months. Try to get at least 150 minutes of exercise per week or 10,000 steps per day on a pedometer. You need 1200-1500mg of calcium and [id number] international units of vitamin D per day. It is possible to meet your calcium requirement with diet alone, but a vitamin D supplement is usually necessary to meet this goal. When exposed to the sun, use a sunscreen that protects against both UVA and UVB radiation with an SPF of 30 or greater. Reapply every 2-3 hours or after sweating, drying off with a towel, or swimming. Always wear a seat belt when traveling in a car. Always wear a helmet when riding a bicycle or a motorcycle Normal [facility] AMB POC HEMOGLOBIN [id number] d By: Windy Garcia on 07-29-2024 HbA1c (Bld) [Mass fraction] 5.7 % - 5.7 % [facility] AMB POC URINE, MICROALBUMINo n 07-29-2024 Albumin Test strip detection limit <= 20 mg/L (U) [Mass/Vol] 80 [facility]L [facility]L [facility] Albumin/Creatinine (U) [Ratio] mg/g [facility] - 30 mg/g [facility] CREATININE MG/DL 300 mg/dL [facility] alth [facility] HbA1c (Bld) [Mass fraction]O rdered By: Windy Garcia on 07-29-2024 [facility] Office Visiton 07-29-2024 Follow-up visit [id number] Chantal Linares 1950 F Date Provider Department Center 07/29/2024 [id number] APPIAH [facility] Family History Problem Relation Age of Onset Heart attack Mother Cancer Mother Heart disease Mother Hypertension Mother Dementia Father Rheum arthritis Father Osteoporosis Father Atrial fibrillation Father Other Father Comments: CHF Heart disease Father Hypertension Father Heart attack Sister Heart disease Sister Hypertension Sister Hypertension Brother No Known Problems Son No Known Problems Son Cancer Maternal Grandfather Comments: Leukemia Diabetes Paternal Grandmother Cancer Other Comments: unknown origin--2 aunts Diabetes Other Comments: grandmother Cancer Sister Hyperlipidemia Sister Family Status - Relation Status Age at Mother Father Alive Sister Alive Brother Alive Son Alive Son Alive Maternal Grandmother Maternal Grandfather Paternal Grandmother Paternal Grandfather Other Sister Level of Service:G0439 DE PPPS, SUBSEQ VISIT Reason for Visit and Comments: Medicare Annual Wellness Visit Initial [676] Normal [facility] Progress Noteon 07-29-2024 Progress Note [facility] [place] [address] [facility] [address] Dept: [phone] Dept Chief Complaint: Chantal Linares is an 74 y.o. female here for an annual wellness visit. I obtained verbal consent from the patient and/or patient?s guardian to use ambient listening technology during this encounter before the ambient technology was engaged. Assessment/Plan : Assessment & Plan Routine general medical examination at health care facility - Health Maintenance - Chantal is due for several health maintenance screenings. - Plan: Order a mammogram and lung cancer screening. Schedule follow-up appointments for screenings and review results with Chantal. Mixed hyperlipidemia - Due for lab work for monitoring. On Simvastatin without side effect. Orders: CBC; Future Comprehensive metabolic panel; Future Lipid panel; Future CBC Comprehensive metabolic panel Lipid panel Diabetic on diet only ([facility]/HCC) (HCC) - Diabetes Mellitus - Chantal has a history of diabetes diagnosed in 2014. She expressed concerns about her A1C levels in relation to cortisone injections. - Plan: Perform an A1C test in the office today to monitor her glucose control. Discuss results and management options based on the outcome. Orders: CBC; Future Comprehensive metabolic panel; Future Lipid panel; Future AMB POC HEMOGLOBIN A1C AMB POC URINE, MICROALBUMIN CBC Comprehensive metabolic panel Lipid panel Cervical myelopathy (HCC) - Continues with chronic pain of the neck though does wax and wane in severity. Encouraged to seek specialist care. Chronic obstructive pulmonary disease, unspecified COPD type ([facility]) - Currently on Breo and Albuterol. No change at this time. Reportedly doing well. Anxiety - Medication Management - Chantal is on controlled medication for anxiety and requires a urine drug screen and contract signing for continued use. - Plan: Conduct a urine drug screen today and review the controlled substance agreement with Chantal. Ensure she understands the terms and conditions for ongoing medication use. Orders: ALPRAZolam (Xanax) 0.25 MG tablet; TAKE 1 TABLET BY MOUTH NIGHTLY NEEDED Encounter for screening mammogram for breast cancer Orders: Bilateral screening mammogram with tomosynthesis; Future Personal history of tobacco use, presenting hazards to health Orders: CT lung screening low dose; Future Gait instability - Gait Abnormality - Chantal reported worsening gait difficulties but declined physical therapy. - Plan: Advise Chantal to maintain activity and walking. If falls occur, consider assistive devices such as canes or walkers. Arthritis, multiple joint involvement - CMC Joint Dysfunction - Chantal has been experiencing worsening pain and functional difficulties with her CMC joint. She has a history of cortisone injections and is considering surgery as a potential treatment. - Plan: Support Chantal's decision to try another cortisone injection before considering surgery. Encourage follow-up with her orthopedic surgeon, Dr. Lomeli, for further management. Vaccine refused by patient - Vaccinations - Chantal has not received a flu shot. - Plan: Offer and administer a flu shot during today's visit if Chantal consents. She declines. Tobacco use disorder - Tobacco Use Disorder - Chantal successfully quit smoking in the fall and experienced significant withdrawal symptoms. - Plan: Congratulate Chantal on quitting smoking and encourage her to continue abstaining from tobacco use. Offer support and resources if needed. Follow-up appointments and additional tests will be scheduled as needed based on the outcomes of today's assessments and screenings. I have reviewed and reconciled the medication list with the patient today. Current Outpatient Medications Medication Sig Dispense Refill albuterol (ProAir HFA) 108 (90 Base) MCG/ACT inhaler Inhale 2 puffs every 4 hours as needed for wheezing or shortness of breath. 8.5 g 0 Diclofenac Sodium (Voltaren) 1 % gel Apply topically 2 times daily. Fiber 500 MG capsule Fluticasone Furoate-Vilanterol (BREO ELLIPTA IN) inhale 1 puff by mouth INTO THE LUNGS daily Inhalation for 30 gabapentin (Neurontin) 100 MG capsule Take 300 mg by mouth 2 times daily. lansoprazole (Prevacid) [address] capsule Take 30 mg by mouth in the morning. losartan (Cozaar) 50 MG tablet Nightly. montelukast (Singulair) 10 MG tablet Take 1 tablet (10 mg) by mouth Nightly. 90 tablet 3 sertraline (Zoloft) 100 MG tablet Take 2 tablets by mouth once daily 180 tablet 3 simvastatin (Zocor) 40 MG tablet TAKE 1 TABLET BY MOUTH EVERY DAY 90 tablet 3 tiZANidine (Zanaflex) 4 MG tablet Take 1 tablet (4 mg) by mouth every 8 hours as needed for muscle spasms for up to 10 days. 30 tablet 0 ALPRAZolam (Xanax) 0.25 MG tablet TAKE 1 TABLET BY MOUTH NIGHTLY (more content not included)... [facility] Progress Note - Continues with chronic pain of the neck though does wax and wane in severity. Encouraged to seek specialist care. [facility] Progress Note - Due for lab work f or monitoring. On Simvastatin without side effect. Orders: CBC; Future Comprehensive metabolic panel; Future Lipid panel; Future CBC Comprehensive metabolic panel Lipid panel [facility] Progress Note - Diabetes Mellitus - Chantal has a history of diabetes diagnosed in 2014. She expressed concerns about her A1C levels in relation to cortisone injections. - Plan: Perform an A1C test in the office today to monitor her glucose control. Discuss results and management options based on the outcome. Orders: CBC; Future Comprehensive metabolic panel; Future Lipid panel; Future AMB POC HEMOGLOBIN A1C AMB POC URINE, MICROALBUMIN CBC Comprehensive metabolic panel Lipid panel [facility] 06-13-2024 36 S: Patient spoke wit h CAC nurse regarding med problem B: Onset of symptoms/concern 06/13 A: Patient's refill of zoloft was sent to [facility] pharmacy, but her preferred pharmacy is [facility] on [address] in [place]. She is completely out and has been out since Saturday, starting to have withdrawal side effects. R: Patient understands care advice to give pharmacy 1-2 hours to fill. Order confirmed with pharmacist. No further needs at this time. Patient instructed to call back with new or worsening symptoms. Reason for Disposition ? [1] Prescription prescribed recently is not at pharmacy AND [2] triager has access to patient's EMR AND [3] prescription is recorded in the EMR Protocols used: Medication Refill and [facility]al [id number]10[facility] 36 Recent Visits Date Type Provider Dept 08/23/23 Office Visit Martir Keene MD [facility] 08/01/23 Office Visit Martir Keene MD [facility] Showing recent visits within past 365 days and meeting all other requirements Future Appointments Date Type Provider Dept 07/08/24 Appointment Martir Keene MD [facility] Showing future appointments within next 90 days and meeting all other requirements Requested Prescriptions Pending Prescriptions Disp Refills sertraline (Zoloft) 100 MG tablet 180 tablet 3 Sig: take 2 tablets by mouth once daily Provider: [id number] - [place], [place] - [address] [address] [id number] [place] - [address] [place] [id number] [facility] [address] [place] [id number] Verified pharmacy: yes Verified day(s) supplied: yes Verified refill(s) needed (previous prescription showing no refills in chart): Yes Have you received any controlled medications from any other provider? Overdue for visit: Yes If yes - patient scheduled? Yes Most recent labs completed in chart? N/A Normal [facility] [id number] 05-28-2024 [id number] Noted [facility] 36on 05-28-2024 36 [facility] MEDICATION ADHERENCE Chantal Linares - 1950 PCP: Martir Keene MD Per insurance med adherence report, patient is due for refills on Losartan. Last prescription date 12/29/2023 Quantity: 90 Refills: 0 Per chart review, patient does not have refills. [id number] - [place], [place] - [address] [address] [id number] [place] - [address] [place] [address]. [facility] [address] [facility] [address] [facility] [address] After chart review, patient should still be on this medication and needs to pick it up at the pharmacy. Will outreach to patient via [employer]. Last appointment Visit date 05/11/24 Next appointment is Visit date 07/08/24 [facility] Cardiology Visit Reporton Cardiology Visit Report [facility] [address] [place] [address] OFFICE VISIT Date of Service: 05/28/24 MR#: [id number] Acct: [id number] Name: CHANTAL LINARES Rep #: [id number] : 1950 Provider: JARED Cruz Age/Sex: 74/F Location: [facility] Status: Signed HPI HPI History of Present Illness Details: Juana Linares is a 74-year-old female that presents here today for a cardiovascular follow-up. She recently established with us for concerns over chest discomfort as well as palpitations. She did have a heart catheterization in 2014 which demonstrated mild to moderate disease with a 40% RCA stenosis, and 25% LAD stenosis. This was followed up with a myocardial perfusion stress test in September 2020 with no evidence of ischemia. She did have an echocardiogram at that same time demonstrating an ejection fraction of 65% with stage II diastolic dysfunction. She also has a history of hyperlipidemia, fibromyalgia and tobacco abuse. Pt did undergo cervical surgery, this was for her neck pain. She is having carpel tunnel pain. She is having lightheadedness, this has been going on for 4 months. She did quit smoking 4 months ago. She does not have any palpitations. She does continue to have some atypical chest pain. She does not have any worsening SOB. Intake Vital Signs 01/21/23 13:34 05/28/24 07:22 Height 5 ft 7 in 5 ft 7 in Weight: 165 lb BMI 25.8 BP 129/84 H Blood Pressure Location Lt brachial Position Sitting Respiration 18 Pulse 81 Pulse Source Monitor Pulse Oximetry (%) 97 Intake Visit Reasons: 1 Y FU Plastic Joint Maker Required: No Is patient in pain?: No Allergies lisinopril Allergy (Severe, Verified 05/28/24 11:21) N/V, diarrhea, abdominal pain Medications ???Medication ???Instructions ???Recorded ???Confirmed ???Type albuterol sulfate 90 mcg/actuation 2 puff IH Q6H PRN PRN Sob /Or 06/04/19 05/28/24 History aerosol inhaler Wheezing alprazolam 0.25 mg tablet 0.25 mg PO QHS PRN Sleep 06/04/19 05/28/24 History qqeq-qrz-hutto-cellulos e-nnstovqy-ptfv-pectin 1,000 mg PO DAILY 06/04/19 05/28/24 History 1,000 mg tablet fluticasone furoate 100 1 ea IH DAILY 06/04/19 05/28/24 History mcg-vilanterol 25 mcg/dose inhalation powder simvastatin 40 mg tablet 40 mg PO QHS 06/04/19 05/28/24 History tizanidine 4 mg tablet 4 mg PO Q6H PRN Spasms 06/04/19 05/28/24 History lansoprazole 30 mg capsule,delayed 30 mg PO DAILY 08/23/20 05/28/24 History release ketoconazole 2 % shampoo 1 applic topical Q2W PRN 08/31/20 05/28/24 History sertraline 100 mg tablet 100 mg PO BID 12/16/20 05/28/24 History tramadol 50 mg tablet 50 mg PO DAILY PRN 12/16/20 05/28/24 History turmeric 400 mg capsule mg PO 01/10/22 05/28/24 History losartan 50 mg tablet See Rx Instructions .Route 03/26/23 05/28/24 Rx .COMPLEX #90 tabs gabapentin 100 mg capsule 300 mg PO BID PRN 05/28/24 05/28/24 History Have you fallen in the past year?: No PFSH Medical History Fatigue Diastolic dysfunction DDD (degenerative disc disease) History of non-ST elevation myocardial infarction (NSTEMI) (10/10/14) Nicotine dependence Spinal stenosis Liver hemangioma Atherosclerosis of coronary artery of [place] heart without angina pectoris Hyperlipidemia Anxiety and depression Fibromyalgia Hiatal hernia History of colonic polyps History of diverticulitis IBS (irritable bowel syndrome) Pancreatitis Rheumatoid arthritis History of spinal stenosis Surgical History H/O cervical spine surgery History of cholecystectomy History of open sigmoidectomy History of tonsillectomy and adenoidectomy History of hysterectomy History of left heart catheterization (10/14/14) Family History Mother Heart disease Cancer ovarian Myocardial infarction, Onset Age: 45 Sister Heart disease Myocardial infarction, Onset Age: 40 Grandmother Diabetes Aunt Breast cancer Social History Smoking Status: Current every day smoker alcohol intake: current alcohol intake frequency: holidays/special occasions only substance use type: does not use ROS Const Const: Negative for fatigue, weakness, headache(s), frequent falls, difficulty sleeping or excessive sweating Eyes Eyes: Negative for loss of peripheral vision, transient loss of vision, blurry vision, double vision or tunnel vision ENT ENT: Negative for headache(s), dizziness, Nosebleed/epistaxis or balance problems Cardio Chest Pain: No Palpitations: No Edema: None Muscle aches with walking: None Resp (more content not included)... [address] 05-19-2024 36 Sent [employer] message . Mailed letter. [address] 05-18-2024 36 Lmom to schedule for AWV for Rx refill. [address] 05-13-2024 36 Left message relayin g the results of xray. Instructed patient to give us a call with any questions. Normal [place] [address] X-ray has been revie rowan Dietz. The x-rays are normal, normal post-operative changes. The hardware is in good position with no evidence of loosening or malalignment. She should continue with recommendations of speech therapy [address] 05-12-2024 36 Patient notified us that she had her xrays completed and are ready for review [address] 05-11-2024 36 Have her come in for an appointment Normal [facility] Office Visiton 05-11-2024 Follow-up visit [id number] Chantal Linares 1950 F Date Provider Department Center 05/11/2024 [id number] GERMAN Salcedo [facility] None Family History Problem Relation Age of Onset Heart attack Mother Cancer Mother Heart disease Mother Hypertension Mother Dementia Father Rheum arthritis Father Osteoporosis Father Atrial fibrillation Father Other Father Comments: CHF Heart disease Father Hypertension Father Heart attack Sister Heart disease Sister Hypertension Sister Hypertension Brother No Known Problems Son No Known Problems Son Cancer Maternal Grandfather Comments: Leukemia Diabetes Paternal Grandmother Cancer Other Comments: unknown origin--2 aunts Diabetes Other Comments: grandmother Cancer Sister Hyperlipidemia Sister Family Status - Relation Status Age at Mother Father Alive Sister Alive Brother Alive Son Alive Son Alive Maternal Grandmother Maternal Grandfather Paternal Grandmother Paternal Grandfather Other Sister Level of Service:35216 DE POSTOP FOLLOW UP VISIT RELATED TO ORIGINAL PX Reason for Visit and Comments: Follow-up [837068] - Difficulty swallowing, throat pain worsening Normal [facility] Progress Noteon 05-11-2024 Progress Note NEUROSURGERY and SPI NE POST-OP NOTE Patient Name: Chantal Linares Patient : 1950 PCP: Martir Keene MD History of Present Ilness: Patient is post-op revision 5-7 ACDF with extension of fusion C4-C5 performed on 04/14/24. Patient messaged in through [employer] this am with the following; --Throat pain worse, feels like food gets stuck or their is something in my throat, swallowing very difficult, coughing at times when eating, Has worsened over these last 3 weeks. Hard to eat --Neck is swollen worse above incision. Also to the side of neck. Hurts more --Voice is hoarse especially if I talk for 5 minutes --Very tired worse this past week. Sat and Saturday body aches, weakness, chills, dizziness at times. Strength does not seem to be increasing not getting better. Advised for her to be seen in clinic. Patient reports that she feels that her neck is more swollen. She states that she is able to tolerate soft foods like soups and puddings but is having more difficulty with solid foods. She states she feels like there is a lump in her throat. She also reports increased pain in her throat" feels like strep throat" and generalized weakness. Past Medical History: Past Medical History: Diagnosis Date Acute bacterial sinusitis 09/07/2018 Adverse effect of anesthesia 2022 Do not want versed before going to operating room. Do not like effect Anxiety CAD (coronary artery disease) Chronic pain disorder 2019 Lumbar Spondolithesis, shoulder, arms left and right. Hands and wrists both hips Colon polyp 2011 COPD (chronic obstructive pulmonary disease) (HCC) Depression Diastolic dysfunction, left ventricle Diverticulosis Dizziness 2004 Ocassionaly. Worse since cervical radiculopathr and cervical myelopathy Fibromyalgia GERD (gastroesophageal reflux disease) Hiatal hernia 2010 Heartburn often especially under stress Hyperlipidemia Hypertension 2021 On losarton 50mg Irritable bowel syndrome Joint pain 2000 Back, ankles, wrists, hands, knees,neck Osteochondral lesion of talar dome SCHEDULED FOR THE SURGERY ON 08/16/22 AT [facility] (postoperative nausea and vomiting) Prediabetes controlled by diet Rheumatoid arthritis ([facility]) Shortness of breath 2018 Spondylolisthesis, lumbar region Past Surgical History: Past Surgical History: Procedure Laterality Date ANKLE ARTHROPLASTY 2022 Repair of peroneal tendon ANKLE SURGERY Right 08/16/2022 Right repair peroneal tendon and ankle arthroscopic debridement talar osteochondral lesion - Dr. Jimenez ANTERIOR CERVICAL DISCECTOMY W/ FUSION 04/14/2024 4-5 APPENDECTOMY CARDIAC CATHETERIZATION 10 11 2014 NO INTERVENTION CATARACT EXTRACTION CERVICAL FUSION 2015 Dr Dietz CHOLECYSTECTOMY COLON SURGERY 03 16 2013 approx; sigmoidectomy diverticulosis COLONOSCOPY 01 06 2013 colonic polyps, diverticulosis, hemorrhoids DILATION AND CURETTAGE OF UTERUS HYSTERECTOMY NECK SURGERY C5-C7 ACDF (Dr. Adam) TONSILLECTOMY AND ADENOIDECTOMY (HISTORICAL) TUBAL LIGATION UPPER GASTROINTESTINAL ENDOSCOPY 01 06 2013 see report Home Medications: Prior to Admission medications Medication Sig Start Date End Date Taking? Authorizing Provider albuterol (ProAir HFA) 108 (90 Base) MCG/ACT inhaler Inhale 2 puffs every 4 hours as needed for wheezing or shortness of breath. Patient not taking: Reported on 04/14/2024 08/01/23 07/31/24 Martir Keene MD ALPRAZolam (Xanax) 0.25 MG tablet take 1 tablet by mouth NIGHTLY NEEDED FOR SLEEP OR ANXIETY FOR UP TO 90 DAYS Patient not taking: Reported on 04/14/2024 06/01/22 Martir Keene MD cyanocobalamin (Vitamin B-12) 100 MCG tablet Take 50 mcg by mouth in the morning. Historical Provider, Fluticasone Furoate-Vilanterol (BREO ELLIPTA IN) inhale 1 puff by mouth INTO THE LUNGS daily Inhalation for 30 Historical Provider, gabapentin (Neurontin) 100 MG capsule Take 300 mg by mouth 2 times daily. 03/12/22 Historical Provider, lansoprazole (Prevacid) [address] capsule Take 30 mg by mouth in the morning. 02/11/22 Historical Provider, losartan (Cozaar) 50 MG tablet Nightly. 02/06/22 Historical Provider, methylPREDNISolone (Medrol Dospak) 4 MG tablets Take as directed on package 04/20/24 05/20/24 Tatiana Adam APRN - JOSE montelukast (Singulair) 10 MG tablet Take 1 tablet (10 mg) by mouth Nightly. 09/16/23 09/15/24 Martir Keene MD naloxone (Narcan) 4 mg/0.1 mL nasal spray instill 1 spray in 1 nostril if needed for OPIOID OVERDOSE may re... (REFER TO PRESCRIPTION NOTES). 08/16/22 Historical Provider, naloxone (Narcan) 4 mg/0.1 mL nasal spray Administer 1 spray (4 mg) into affected nostril(s) as needed for respiratory depression or opioid reversal. May repeat every 2-3 minutes if needed, alternating nostrils, until medical assistance becomes available. 04/15/24 04/15/25 Malaika Pack PA-C oxyCODONE (Roxicodone) 5 MG immediate release tablet T (more content not included)... [facility] 29on 04-27-2024 29 Addended by: TATIANA ADAM on: 04/27/2024 08:23 AM Modules accepted: Orders [facility] 36on 04-27-2024 36 Sent [employer] message. Normal [facility] 36 Refills sent [facility] Office Visiton 04-27-2024 Follow-up visit [id number] Chantal Linares 1950 F Date Provider Department Center 04/27/2024 [id number] DIETZ [facility] None Family History Problem Relation Age of Onset Heart attack Mother Cancer Mother Heart disease Mother Hypertension Mother Dementia Father Rheum arthritis Father Osteoporosis Father Atrial fibrillation Father Other Father Comments: CHF Heart disease Father Hypertension Father Heart attack Sister Heart disease Sister Hypertension Sister Hypertension Brother No Known Problems Son No Known Problems Son Cancer Maternal Grandfather Comments: Leukemia Diabetes Paternal Grandmother Cancer Other Comments: unknown origin--2 aunts Diabetes Other Comments: grandmother Cancer Sister Hyperlipidemia Sister Family Status - Relation Status Age at Mother Father Alive Sister Alive Brother Alive Son Alive Son Alive Maternal Grandmother Maternal Grandfather Paternal Grandmother Paternal Grandfather Other Sister Level of Service:24331 DE POSTOP FOLLOW UP VISIT RELATED TO ORIGINAL PX Reason for Visit and Comments: Post-op [483] - Patient present for ACDF post op. Patient is reporting the medrol dosepak only temporarily helped with her swallowing. She reports "it feels like I have strep throat" Normal [facility] Progress Noteon 04-27-2024 Progress Note NEUROSURGERY and SPI NE POST-OP NOTE Patient Name: Chantal Linares Patient : 1950 PCP: Martir Keene MD History of Present Ilness: Patient is post-op revision 5-7 ACDF with extension of fusion C4-C5 performed on 04/14/24. She reports continued mild dysphagia. She is able to tolerate liquids and soft foods. Her incision is healing nicely. Discussed lifting activity restrictions and collar use. She is interested in PT Past Medical History: Past Medical History: Diagnosis Date Acute bacterial sinusitis 09/07/2018 Adverse effect of anesthesia 2022 Do not want versed before going to operating room. Do not like effect Anxiety CAD (coronary artery disease) Chronic pain disorder 2018 Lumbar Spondolithesis, shoulder, arms left and right. Hands and wrists both hips Colon polyp 2011 COPD (chronic obstructive pulmonary disease) (HCC) Depression Diastolic dysfunction, left ventricle Diverticulosis Dizziness 2004 Ocassionaly. Worse since cervical radiculopathr and cervical myelopathy Fibromyalgia GERD (gastroesophageal reflux disease) Hiatal hernia 2010 Heartburn often especially under stress Hyperlipidemia Hypertension 2021 On losarton 50mg Irritable bowel syndrome Joint pain 2000 Back, ankles, wrists, hands, knees,neck Osteochondral lesion of talar dome SCHEDULED FOR THE SURGERY ON 08/16/22 AT [facility] (postoperative nausea and vomiting) Prediabetes controlled by diet Rheumatoid arthritis (HCC) Shortness of breath 2019 Spondylolisthesis, lumbar region Past Surgical History: Past Surgical History: Procedure Laterality Date ANKLE ARTHROPLASTY 2022 Repair of peroneal tendon ANKLE SURGERY Right 08/16/2022 Right repair peroneal tendon and ankle arthroscopic debridement talar osteochondral lesion - Dr. Jimenez ANTERIOR CERVICAL DISCECTOMY W/ FUSION 04/14/2024 4-5 APPENDECTOMY CARDIAC CATHETERIZATION 10 11 2014 NO INTERVENTION CATARACT EXTRACTION CERVICAL FUSION 2015 Dr Dietz CHOLECYSTECTOMY COLON SURGERY 03 16 2013 approx; sigmoidectomy diverticulosis COLONOSCOPY 01 06 2013 colonic polyps, diverticulosis, hemorrhoids DILATION AND CURETTAGE OF UTERUS HYSTERECTOMY NECK SURGERY C5-C7 ACDF (Dr. Adam) TONSILLECTOMY AND ADENOIDECTOMY (HISTORICAL) TUBAL LIGATION UPPER GASTROINTESTINAL ENDOSCOPY 01 06 2013 see report Home Medications: Prior to Admission medications Medication Sig Start Date End Date Taking? Authorizing Provider albuterol (ProAir HFA) 108 (90 Base) MCG/ACT inhaler Inhale 2 puffs every 4 hours as needed for wheezing or shortness of breath. Patient not taking: Reported on 04/14/2024 08/01/23 07/31/24 Martir Keene MD ALPRAZolam (Xanax) 0.25 MG tablet take 1 tablet by mouth NIGHTLY NEEDED FOR SLEEP OR ANXIETY FOR UP TO 90 DAYS Patient not taking: Reported on 04/14/2024 06/01/22 Martir Keene MD cyanocobalamin (Vitamin B-12) 100 MCG tablet Take 50 mcg by mouth in the morning. Historical Provider, Fluticasone Furoate-Vilanterol (BREO ELLIPTA IN) inhale 1 puff by mouth INTO THE LUNGS daily Inhalation for 30 Historical Provider, gabapentin (Neurontin) 100 MG capsule Take 300 mg by mouth 2 times daily. 03/12/22 Historical Provider, lansoprazole (Prevacid) [address] capsule Take 30 mg by mouth in the morning. 02/11/22 Historical Provider, losartan (Cozaar) 50 MG tablet Nightly. 02/06/22 Historical Provider, methylPREDNISolone (Medrol Dospak) 4 MG tablets Take as directed on package 04/20/24 05/20/24 IVY Michael CNP montelukast (Singulair) 10 MG tablet Take 1 tablet (10 mg) by mouth Nightly. 09/16/23 09/15/24 Martir Keene MD naloxone (Narcan) 4 mg/0.1 mL nasal spray instill 1 spray in 1 nostril if needed for OPIOID OVERDOSE may re... (REFER TO PRESCRIPTION NOTES). 08/16/22 Historical Provider, naloxone (Narcan) 4 mg/0.1 mL nasal spray Administer 1 spray (4 mg) into affected nostril(s) as needed for respiratory depression or opioid reversal. May repeat every 2-3 minutes if needed, alternating nostrils, until medical assistance becomes available. 04/15/24 04/15/25 Malaika Pack PA-C oxyCODONE (Roxicodone) 5 MG immediate release tablet Take 1 tablet (5 mg) by mouth every 6 hours as needed for severe pain (7-10) (breakthrough post op pain) for up to 7 days. 04/27/24 05/04/24 IVY Michael CNP sertraline (Zoloft) 100 MG tablet take 2 tablets by mouth once daily 05/22/23 Martir Keene MD simvastatin (Zocor) 40 MG tablet take 1 tablet by mouth once daily 06/26/23 Martir Keene MD tiZANidine (Zanaflex) 4 MG tablet Take 1 tablet (4 mg) by mouth every 8 hours as needed for muscle spasms for up to 10 days. 04/27/24 05/07/24 IVY Michael CNP varenicline (Chantix Starting Month ) 0.5 MG X 11 & 1 MG X 42 tablet Use as directed on package instructions, try to quit smoking after 1 week. 02/25/24 Martir Keene MD varenicline (Chantix) 1 MG (more content not included)... [facility] 36on 04-24-2024 36 Pt called again requesting these refills. [facility] 36on 04-23-2024 36 Pt called requesting refills of the oxycodone and tizanidine to be sent to pharmacy [facility] 36on 04-22-2024 36 Post op and follow u p call performed. Patient states she is experiencing some relief with just one full day of steroids. Patient encouraged to only consume meals she call tolerate to avoid choking. Patient states her pain is controlled with current regimen, denies needing refills at this time. She reports taking prophylactic colace, and denies any bowel concerns. She verbalized understanding of post op appointment, and instructed her to contact us with any questions or concerns. [facility] 29on 04-20-2024 29 Addended by: TATIANA ADAM on: 04/20/2024 02:12 PM Modules accepted: Orders [facility] 36 04-20-2024 36 Patient educated on medrol dosepak and verbalized understanding. [facility] 36 I will send in a med rol dose pack for her; this is a steroid taper and should help with her swallowing difficulties [facility] 36 Patient reports her swallowing has only worsened since surgery. She stated "I can barely swallow liquid". She has reported using ice to help the inflammation with no relief. Please advise. [facility] BASIC METABOLIC PANELon 04-03 Anion gap [Moles/Vol] 7 mmol/L Normal 3-13 [facility] Comment on above: Performed By: #### L [id number] ####School Inspector: CHETNA LEMA ([id number])[address] Calcium [Mass/Vol] 9.4 mg/dL Normal 8.4-10.4 [facility] Comment on above: Performed By: #### L [id number] ####School Inspector: CHETNA LEMA ([id number])[facility])[address] [place] [address] Chloride [Moles/Vol] 100 mmol/L Normal 98-107 [facility] Comment on above: Performed By: #### L [id number] ####School Inspector: CHETNA LEMA ([id number])[facility] ([facility])[address] [place] [address] CO2 [Moles/Vol] 25 mmol/L Normal 22-30 [facility] Comment on above: Performed By: #### L [id number] ####School Inspector: CHETNA LEMA ([id number])[facility] [place] [address] Creatinine [Mass/Vol] 0.48 mg/dL Low 0.52-1.04 [facility] Comment on above: Performed By: #### L [id number] ####School Inspector: CHETNA LEMA ([id number])[facility] ([facility])[address] [place] [address] GLOMERULAR FILTRATION RATE ML/MIN/1.73 SQ M.PREDICTED >90.0 Normal >60.0 [facility] Comment on above: Result Comment: Calc ulation based on the Chronic Kidney Disease Epidemiology Collaboration (CKD-EPI) equation refit without adjustment for race Performed By: #### L [id number] ####School Inspector: CHETNA LEMA ([id number])[facility] [place] [address] Glucose [Mass/Vol] 144 mg/dL High 70-100 [facility] Comment on above: Performed By: #### L [id number] ####School Inspector: CHETNA LEMA ([id number])[facility] [place] [address] Potassium [Moles/Vol] 4.7 mmol/L Normal 3.5-5.1 [facility] Comment on above: Performed By: #### L [id number] ####School Inspector: CHETNA LEMA ([id number])[facility] ([facility])[address] [place] [address] Sodium [Moles/Vol] 133 mmol/L Low 135-145 [facility] Comment on above: Performed By: #### L [id number] ####School Inspector: CHETNA LEMA ([id number])[facility] ([facility])[address] Urea nitrogen [Mass/Vol] 12 mg/dL Normal 7-17 [facility] Comment on above: Performed By: #### L [id number] ####School Inspector: CHETNA LEMA ([id number])[facility] ([facility])[address] [place] [address] Basic metabolic 1998 panelon 04-15-2024 Anion gap [Moles/Vol] 7 mmol/L 3 - 13 mmol/L [facility] Calcium [Mass/Vol] 9.4 mg/dL 8.4 - 10. 4 mg/dL [facility] Chloride [Moles/Vol] 100 mmol/L 98 - 10 7 mmol/L [facility] CO2 [Moles/Vol] 25 mmol/L 22 - 30 mmol/L [facility] Creatinine [Mass/Vol] 0.48 mg/dL Low 0.52 - 1.04 mg/dL [facility] GFR/1.73 sq M.predicted (S/P/Bld) [Vol rate/Area] - PINF [facility] Comment on above: Calculation based on the Chronic Kidney Disease Epidemiology Collaboration (CKD-EPI) equation refit without adjustment for race Glucose [Mass/Vol] 144 mg/dL High 70 - 100 mg/dL [facility] Interpretation and review of laboratory results Abnormal [facility] Potassium [Moles/Vol] 4.7 mmol/L 3.5 - 5.1 mmol/L [facility] Sodium [Moles/Vol] 133 mmol/L Low 135 - 145 mmol/L [facility] Urea nitrogen [Mass/Vol] 12 mg/dL 7 - 17 mg/dL [facility] CBC W Auto Differential pane l (Bld)on 04-15-2024 Basophils (Bld) [#/Vol] 0 10*3/uL 0.0 - 0.2 10*3/uL [facility] Basophils/100 WBC (Bld) 0.1 % 0.0 - 2.0 % [facility] Eosinophils (Bld) [#/Vol] 0 10*3/uL 0.0 - 0.5 10*3/uL [facility] Eosinophils/100 WBC (Bld) 0.1 % 0.0 - 6.0 % [facility] Erythrocyte distribution width (RBC) [Ratio] 13.6 % 11.5 - 15.0 % [facility] Hematocrit (Bld) [Volume fraction] 37.6 % 35.0 - 47.0 % [facility] Hemoglobin (Bld) [Mass/Vol] 12.1 g/dL 11.7 - 16.0 g/dL [facility] Immature granulocytes (Bld) [#/Vol] 0 10*3/uL NINF - 0.1 10*3/uL [facility] Immature granulocytes/100 WBC (Bld) 0.3 % 0.0 - 2.0 % [facility] Interpretation and review of laboratory results Abnormal [facility] Lymphocytes (Bld) [#/Vol] 0.8 10*3/uL Low 1.0 - 4.3 10*3/uL [facility] Lymphocytes/100 WBC (Bld) 6.8 % Low 15.0 - 45.0 % [facility] MCH (RBC) [Entitic mass] 30.8 pg 26.0 - 34.0 pg [facility] MCHC (RBC) [Mass/Vol] 32.2 % 30.5 - 36.0 % [facility] MCV (RBC) [Entitic vol] 95.7 fL 77.0 - 99.0 fL [facility] Monocytes (Bld) [#/Vol] 0.3 10*3/uL 0.0 - 0.9 10*3/uL [facility] Monocytes/100 WBC (Bld) 2.4 % Low 5.0 - 13.0 % [facility] Neutrophils (Bld) [#/Vol] 11 10*3/uL High 1.8 - 7.5 10*3/uL [facility] Neutrophils/100 WBC (Bld) 90.3 % High 38.0 - 82.0 % [facility] Nucleated RBC/100 WBC (Bld) [Ratio] 0 % [facility] Microsaic Platelet mean volume (Bld) [Entitic vol] 8.7 fL Low 9.0 - 12.7 fL [facility] Platelets (Bld) [#/Vol] 323 10*3/uL 140 - 440 10*3/uL [facility] RBC (Bld) [#/Vol] 3.93 10*6/uL 3.80 - 5.2 0 10*6/uL [facility] WBC (Bld) [#/Vol] 12.2 10*3/uL High 3.6 - 10.7 10*3/uL [facility] CBC WITH AUTO DIFFERENTIALon 04-15-2024 Basophils (Bld) [#/Vol] 0.0 10*3/uL Normal 0.0-0.2 [facility] Comment on above: Performed By: #### L [id number] ####School Inspector: CHETNA LEMA ([id number])[facility])[address] [place] [address] Basophils/100 WBC (Bld) 0.1 % Normal 0.0-2.0 [facility] Comment on above: Performed By: #### L [id number] ####School Inspector: CHETNA LEMA ([id number])[facility])[address] [place] [address] Eosinophils (Bld) [#/Vol] 0.0 10*3/uL Normal 0.0-0.5 [facility] Comment on above: Performed By: #### L [id number] ####School Inspector: CHETNA LEMA ([id number])[facility] ([facility])[address] [place] [address] Eosinophils/100 WBC (Bld) 0.1 % Normal 0.0-6.0 [facility] Comment on above: Performed By: #### L [id number] ####School Inspector: CHETNA LEMA ([id number])[facility])[address] [place] [address] Erythrocyte distribution width (RBC) [Ratio] 13.6 % Normal 11.5-15.0 [facility] Comment on above: Performed By: #### L [id number] ####School Inspector: CHETNA LEMA ([id number])[facility])[address] [place] [address] Hematocrit (Bld) [Volume fraction] 37.6 % Normal 35.0-47.0 [facility] Comment on above: Performed By: #### L [id number] ####School Inspector: CHETNA LEMA ([id number])[facility])[address] [place] [address] Hemoglobin (Bld) [Mass/Vol] 12.1 g/dL Normal 11.7-16.0 [facility] Comment on above: Performed By: #### L [id number] ####School Inspector: CHETNA LEMA ([id number])[facility])[address] [place] [address] IMMATURE GRANS % 0.3 % Normal 0.0-2.0 [facility] Comment on above: Performed By: #### L [id number] ####School Inspector: CHETNA LEMA ([id number])[address] IMMATURE GRANS ABSOLUTE 0.0 10*3/uL Normal <0.1 [facility] Comment on above: Performed By: #### L [id number] ####School Inspector: CHETNA LEMA ([id number])[facility])[address] [place] [address] Lymphocytes (Bld) [#/Vol] 0.8 10*3/uL Low 1.0-4.3 [facility] Comment on above: Performed By: #### L [id number] ####School Inspector: CHETNA LEMA ([id number])[address] Lymphocytes/100 WBC (Bld) 6.8 % Low 15.0-45.0 [facility] Comment on above: Performed By: #### L [id number] ####School Inspector: CHETNA LEMA ([id number])[facility])[address] [place] [address] MCH (RBC) [Entitic mass] 30.8 pg Normal 26.0-34.0 [facility] Comment on above: Performed By: #### L [id number] ####School Inspector: CHETNA LEMA ([id number])[facility])[address] [place] [address] MCHC 32.2 % Normal 30.5-36.0 [facility] Comment on above: Performed By: #### L [id number] ####School Inspector: CHETNA LEMA ([id number])[facility] ([facility])[address] [place] [address] MCV (RBC) [Entitic vol] 95.7 fL Normal 77.0-99.0 [facility] Comment on above: Performed By: #### L [id number] ####School Inspector: CHETNA LEMA ([id number])[facility])[address] [place] [address] Monocytes (Bld) [#/Vol] 0.3 10*3/uL Normal 0.0-0.9 [facility] Comment on above: Performed By: #### L [id number] ####School Inspector: CHETNA LEMA ([id number])[facility])[address] [place] [address] Monocytes/100 WBC (Bld) 2.4 % Low 5.0-13.0 [facility] Comment on above: Performed By: #### L [id number] ####School Inspector: CHETNA LEMA ([id number])[facility] ([facility])[address] [place] [address] NEUTROPHILS ABSOLUTE 11.0 10*3/uL High 1.8-7.5 [facility] Comment on above: Performed By: #### L [id number] ####School Inspector: CHETNA LEMA ([id number])[facility])[address] [place] [address] Neutrophils/100 WBC (Bld) 90.3 % High 38.0-82.0 [facility] Comment on above: Performed By: #### L [id number] ####School Inspector: CHETNA LEMA ([id number])[facility])[address] [place] [address] NRBC 0.0 /100 WBCs Normal 0.0-2.0 [facility] Comment on above: Performed By: #### L [id number] ####School Inspector: CHETNA LEMA ([id number])[facility] ([facility])[address] [place] [address] Platelet mean volume (Bld) [Entitic vol] 8.7 fL Low 9.0-12.7 [facility] Comment on above: Performed By: #### L [id number] ####School Inspector: CHETNA LEMA ([id number])[facility])[address] [place] [address] Platelets (Bld) [#/Vol] 323 10*3/uL Normal 140-440 [facility] Comment on above: Performed By: #### L [id number] ####School Inspector: CHETNA LEMA ([id number])[facility])[address] [place] [address] RBC (Bld) [#/Vol] 3.93 10*6/uL Normal 3.80-5.20 [facility] Comment on above: Performed By: #### L [id number] ####School Inspector: CHETNA LEMA ([id number])[facility])[address] [place] [address] WBC (Bld) [#/Vol] 12.2 10*3/uL High 3.6-10.7 [facility] Comment on above: Performed By: #### L [id number] ####School Inspector: CHETNA LEMA ([id number])[address] Nursing Noteon 04-15-2024 Nursing Note Home going instructi ons given, patient verbalizes understanding. Normal [facility] Progress Noteon 04-15-2024 Progress Note 73yo f s/p re explor e fusion C5-C7, C4-C5 ACDF yesterday with Dr. Dietz. States she is having some neck and head pain. This is manageable with medication. She has not yet worked with PT. She would like to go home today. Drain 10cc last shift. PE Awake and alert Strength 5/5 in BUE, no focal deficits Incision c/d/I Dressing c/d/I Drain in place and working well AP POD1 re explore fusion C5-C7, C4-C5 ACDF with Dr. Dietz. She is recovering in an expected manner. Her drain was removed with catheter tip intact. Plan for discharge home today. Patient would like to work with PT before discharge. Discharge instructions given. Follow up with Dr. Dietz in 2 weeks. Malaika Pack PA-C [facility] Consulton 04-14-2024 Consult --- Attestation signed by Missy Ott DO at 04/14/2024 11:38 PM Attending Supervising Physician?s Attestation Statement The patient was seen and examined independently and relevant data reviewed by myself. A full chart review was performed. Care plan has been discussed with TYLER Garsia I agree with the current plan of care including the workup, evaluation, management, and diagnosis. I have reviewed and agree with documentation below, unless stated otherwise in comments below. I personally evaluated the patient, I personally reviewed chart, data, labs radiology reports, and family updated at the bedside Hospital Medicine Consult Patient - Chantal Linares, Age - 73 y.o. - 1950 Room Number - [id number] A Consulting - German Dietz MD Primary Care Physician - Martir Keene MD [facility] # - [id number] Date of Admission - 04/14/2024 5:52 AM Hospital Day - 0 Reason for Consult: Medical Management HISTORY OF PRESENT ILLNESS: Chantal is a 73 y.o. female pmhx below has a hx of cervical radiculopathy and neck pain and UE pain numbness, myelopathy symptoms. She has a history of a C5-C7 ACDF years ago. Most recent MRI cervical spine showed postop changes C5-C7 with a sizable disc bulge C4-C5 causing significant central canal and foraminal stenosis. Today she is s/p Exploration of C5-C7 ACDF, removal of plate C5-C7, C4-C5 anterior cervical decompression and fusion today with Dr. Dietz 04/14/2024. She recovered in the PACU with no complications and transferred to with no difficulty. [facility] was consulted for postoperative medical management. On assessment the patient is lying in bed in no acute distress. She is alert and oriented x 4. She states that her pain is controlled with current regimen. Denies sob, cp, palpitations, abdominal discomfort, urinary sx, n/v/d/c fever or chills. ASMITA drain in place. Surrounding area looks WNL. Suture in place to stabilize ASMITA drain. The incision is closed with sutures and steri strips and covered with a sterile dressing. The surrounding area is free from any erythema or swelling. No foul smelling or purulent drainage. Some tenderness on palpation. The patient was able to ambulate to the bathroom and void without difficulty. Denies any irritative voiding complaints. Chart was reviewed and I discussed with RN and attending. No acute medical changes since arriving from the PACU. Past Medical History: Past Medical History: Diagnosis Date Acute bacterial sinusitis 09/07/2018 Adverse effect of anesthesia 2022 Do not want versed before going to operating room. Do not like effect Anxiety CAD (coronary artery disease) Chronic pain disorder 2018 Lumbar Spondolithesis, shoulder, arms left and right. Hands and wrists both hips Colon polyp 2011 COPD (chronic obstructive pulmonary disease) (HCC) Depression Diastolic dysfunction, left ventricle Diverticulosis Dizziness 2004 Ocassionaly. Worse since cervical radiculopathr and cervical myelopathy Fibromyalgia GERD (gastroesophageal reflux disease) Hiatal hernia 2010 Heartburn often especially under stress Hyperlipidemia Hypertension 2021 On losarton 50mg Irritable bowel syndrome Joint pain 1999 Back, ankles, wrists, hands, knees,neck Osteochondral lesion of talar dome SCHEDULED FOR THE SURGERY ON 08/16/22 AT [facility] (postoperative nausea and vomiting) Prediabetes controlled by diet Rheumatoid arthritis (HCC) Shortness of breath 2019 Spondylolisthesis, lumbar region Past Surgical History: Past Surgical History: Procedure Laterality Date ANKLE ARTHROPLASTY 2022 Repair of peroneal tendon ANKLE SURGERY Right 08/16/2022 Right repair peroneal tendon and ankle arthroscopic debridement talar osteochondral lesion - Dr. Jimenez ANTERIOR CERVICAL DISCECTOMY W/ FUSION 04/14/2024 4-5 APPENDECTOMY CARDIAC CATHETERIZATION 10 11 2014 NO INTERVENTION CATARACT EXTRACTION CERVICAL FUSION 2015 Dr Dietz CHOLECYSTECTOMY COLON SURGERY 03 16 2013 approx; sigmoidectomy diverticulosis COLONOSCOPY 01 06 2013 colonic polyps, diverticulosis, hemorrhoids DILATION AND CURETTAGE OF UTERUS HYSTERECTOMY NECK SURGERY C5-C7 ACDF (Dr. Adam) TONSILLECTOMY AND ADENOIDECTOMY (HISTORICAL) TUBAL LIGATION UPPER GASTROINTESTINAL ENDOSCOPY 01 06 2013 see report Medications: Scheduled PRN acetaminophen, 650 mg, Oral, q6h tiotropium, 2 puff, Inhalation, Daily And albuterol, 1 puff, Inhalation, 4x daily [START ON 04/15/2024] atorvastatin, 20 mg, Oral, Nightly ceFAZolin, 2,000 mg, IntraVENous, q8h docusate sodium, 100 mg, Oral, BID gabapentin, 300 mg, Oral, BID losartan, 50 mg, Oral, Daily (more content not included)... Normal [facility] No Panel Informationon 04-14 There is no interpretation needed for this exam. IMAGING Nursing Noteon 04-14-2024 Nursing Note Pt up to the bathroo m, with assist; gait steady; C.C intact; void without difficulty; family at bedside; returned to bed, awaiting room Normal [facility] Op Noteon 04-14-2024 Op Note OPERATIVE NOTE Patient Name: Chanatl Linares : 1950 DATE OF PROCEDURE: 04/14/2024 SURGEON: German Dietz MD OVER[employer] CLEANER MAINTAINER: Tatiana Adam CNP PREOPERATIVE DIAGNOSES: Cervical stenosis, cervical radiculopathy POSTOPERATIVE DIAGNOSES: Same PROCEDURE: Exploration of C5-C7 ACDF, removal of plate C5-C7, C4-C5 anterior cervical decompression and fusion ANESTHESIA: General ESTIMATED BLOOD LOSS: 20 INDICATION FOR PROCEDURE: Mrs. Linares is a 73-year-old female with a history of a C5-C7 ACDF years ago. She presented with new symptoms of cervical radiculopathy. MRI cervical spine showed postop changes C5-C7 with a sizable disc bulge C4-C5 causing significant central canal and foraminal stenosis. Risks and benefits of ACDF and removal of previous plate were discussed with her, she wished to proceed. DESCRIPTION OF PROCEDURE: Patient was brought to the op room general endotracheal esthesia was induced. She had spinal cord monitoring leads placed. She is lying supine on operative table, her head rested on a donut. Her arms were tucked and padded her side appropriately shoulders were gently taped and allow better visualization of the cervical spine via C arm. C-arm was brought in field approximate the C4-C5 level, this is marked surgical marker and she was prepped and draped in the normal sterile fashion. After appropriate timeout identifying the patient, the level surgery type surgery point 5% Marcaine with epinephrine was instilled future incision. Skin incision was made to level platysma. Supraplatysmal dissection was carried out. Platysma was opened vertically to the midline the anterior border of the sternocleidomastoid was identified, the carotid artery was identified a Lateral exposure. When the anterior cervical spine was reached, the anterior cervical plate from C5-C7 was identified. It was thoroughly exposed and the screws from C5-C7 were exposed. The universal removal set was used to find a screwdriver of appropriate size to remove the screws. Once the screws were removed the plate was able to be removed and the excess fusion from C5 to see 7 was explored. There was solid bony fusion with no abnormal motion at C5-C6 or C6-C7. We are then able to identify the C4-C5 level at the superior aspect just above the top of the plate. Cicero pins were placed in the 4 and C5 gentle distraction placed on him retractors were put in place. Then the discectomy at C4-C5 was carried out on the microscope with pituitary drill 1 and 2 mm Kerrisons the up-biting curette. The PLL was reached and resected across the span of the disc base. There was sizable osteophytes bilaterally especially at on the right when the decompression was complete the proximal end of each root was identified. The endplates were prepared with ring curette and rasp. A 7 mm titanium cage stuffed with DBX was placed at the C4-C5 level. This cage was separate and distinct from the anterior cervical plate. Following this an anterior cervical plate by [employer] was placed with 15 mm screws. Because there was solid fusion from see 5 to C7 we did not replace the plate there we just placed a plate from C4-C5. The wound was then blanka irrigated out retractors removed wound allowed to sit for several minutes confirm there is good hemostasis. Then a 10 Cuban round ASMITA drain was placed. The platysma was closed with interrupted 3-0 Vicryl sutures followed by subcuticular up to 3-0 Vicryl sutures with Mastisol and Steri-Strips on the skin. 3-0 Vicryl was used so ASMITA drain in place. Sterile dressing was placed. She was extubated taken recovery in stable fashion. All of her spinal cord signals were the same at the end of the case compared to beginning. There is no neurosurgical resident available to assist the case, the nurse practitioner assisted to provide suction retraction assistance with opening closing allow the case to be performed safely. [facility] [id number] 04-09-2024 [id number] Medication List Accurate as of April 09, 2024 11:48 AM. Always use your most recent med list. albuterol 108 (90 Base) MCG/ACT inhaler Commonly known as: ProAir HFA Inhale 2 puffs every 4 hours as needed for wheezing or shortness of breath. Medication Adjustments for Surgery: Take morning of surgery ALPRAZolam 0.25 MG tablet Commonly known as: Xanax take 1 tablet by mouth NIGHTLY NEEDED FOR SLEEP OR ANXIETY FOR UP TO 90 DAYS Medication Adjustments for Surgery: Take morning of surgery BREO ELLIPTA IN Medication Adjustments for Surgery: Take morning of surgery budesonide-formoterol 160-4.5 MCG/ACT inhaler Commonly known as: Symbicort Inhale 2 puffs in the morning and 2 puffs in the evening. Rinse mouth with water after use to reduce aftertaste and incidence of candidiasis. Do not swallow.. Medication Adjustments for Surgery: Other (Comment) Notes to patient: Not taking cyanocobalamin 100 MCG tablet Commonly known as: Vitamin B-12 Medication Adjustments for Surgery: Other (Comment) Notes to patient: Not taking gabapentin 100 MG capsule Commonly known as: Neurontin Medication Adjustments for Surgery: Take morning of surgery lansoprazole [address] capsule Commonly known as: Prevacid Medication Adjustments for Surgery: Take morning of surgery losartan 50 MG tablet Commonly known as: Cozaar Medication Adjustments for Surgery: Hold morning of surgery montelukast 10 MG tablet Commonly known as: Singulair Take 1 tablet (10 mg) by mouth Nightly. Medication Adjustments for Surgery: Take morning of surgery naloxone 4 mg/0.1 mL nasal spray Commonly known as: Narcan Medication Adjustments for Surgery: Other (Comment) Notes to patient: Not taking sertraline 100 MG tablet Commonly known as: Zoloft take 2 tablets by mouth once daily Medication Adjustments for Surgery: Take morning of surgery simvastatin 40 MG tablet Commonly known as: Zocor take 1 tablet by mouth once daily Medication Adjustments for Surgery: Take morning of surgery tiZANidine 4 MG tablet Commonly known as: Zanaflex Medication Adjustments for Surgery: Take morning of surgery traMADol 50 MG tablet Commonly known as: Ultram Medication Adjustments for Surgery: Take morning of surgery * varenicline 0.5 MG X 11 & 1 MG X 42 tablet Commonly known as: Chantix Starting Month Rosalio Use as directed on package instructions, try to quit smoking after 1 week. Medication Adjustments for Surgery: Other (Comment) Notes to patient: Not taking * varenicline 1 MG tablet Commonly known as: Chantix Take 1 tablet (1 mg) by mouth 2 times daily. Take with full glass of water. Do not start before April 18, 2024. Start taking on: April 18, 2024 Medication Adjustments for Surgery: Other (Comment) Notes to patient: Not taking * This list has 2 medication(s) that are the same as other medications prescribed for you. Read the directions carefully, and ask your doctor or other care provider to review them with you. Additional Instructions: You may take your prescription pain medication. You may take Tylenol for pain. NO Motrin, ibuprofen or Advil for 24 hours prior to surgery or longer if instructed by your surgeon. NO Aleve or Naprosyn for 5 days prior to surgery or longer if instructed by your surgeon. Shower with an antibacterial soap such as Dial or Safeguard or shower kit provided to you before coming to the hospital. No makeup, lotion, powder, deodorant or body spays. No hair products. Remove all jewelry and leave it at home. Wear loose comfortable clothing to go home in. You may brush your teeth morning of surgery. Do not wear contacts day of surgery. No marijuana (THC), smoking or alcohol for 24 hours prior to surgery. Please arrange for a responsible adult to drive you home after your surgery and that there is a responsible adult with you for 24 hours post discharge. If you have specific questions, please call your surgeon. You will receive a call the day before your surgery to verify your arrival time and date. You will be asked to arrive at least two hours prior to your scheduled surgery time. Please bring your [facility] Surgical folder and medication list with you day of surgery. We encourage you to write down any questions you may have for the surgeon, anesthesiologist, or other members of the surgical team and bring it with you the day of surgery. Please bring photo ID and insurance information. Normal [facility] CBC (HEMOGRAM)on 04-09-2024 Erythrocyte distribution width (RBC) [Ratio] 13.8 % Normal 11.5-15.0 [facility] Comment on above: Performed By: #### L [id number] ####School Inspector: FLORES PUGA ([id number])[facility] ([facility])[address] [place] [address] Hematocrit (Bld) [Volume fraction] 42.1 % Normal 35.0-47.0 [facility] Comment on above: Performed By: #### L AB294 ####School Inspector: FLORES PUGA ([id number])[facility] ([facility])[address] [place] [address] Hemoglobin (Bld) [Mass/Vol] 13.5 g/dL Normal 11.7-16.0 [facility] Comment on above: Performed By: #### L AB294 ####School Inspector: FLORES PUGA ([id number])[facility] ([facility])[address] [place] [address] MCH (RBC) [Entitic mass] 31.0 pg Normal 26.0-34.0 [facility] Comment on above: Performed By: #### L AB294 ####School Inspector: FLORES PUGA ([id number])[facility] ([facility])[address] MCHC 32.1 % Normal 30.5-36.0 [facility] Comment on above: Performed By: #### L AB294 ####School Inspector: FLORES PUGA ([id number])[facility] (SBHLAB)[address] MCV (RBC) [Entitic vol] 96.8 fL Normal 77.0-99.0 [facility] Comment on above: Performed By: #### L AB294 ####School Inspector: FLORES PUGA ([id number])[facility] (SBHLAB)[address] Platelet mean volume (Bld) [Entitic vol] 8.3 fL Low 9.0-12.7 [facility] Comment on above: Performed By: #### L AB294 ####School Inspector: FLORES PUGA ([id number])[facility] ([facility])[address] [place] [address] [place] Platelets (Bld) [#/Vol] 324 10*3/uL Normal 140-440 [facility] Comment on above: Performed By: #### L AB294 ####School Inspector: FLORES PUGA ([id number])[facility] ([facility])[address] RBC (Bld) [#/Vol] 4.35 10*6/uL Normal 3.80-5.20 [facility] Comment on above: Performed By: #### L AB294 ####School Inspector: FLORES PUGA ([id number])[facility] ([facility])[address] WBC (Bld) [#/Vol] 6.5 10*3/uL Normal 3.6-10.7 [facility] Comment on above: Performed By: #### L AB294 ####School Inspector: FLORES PUGA ([id number])[facility] [place] (SB[facility]AB)[address] COMPREHENSIVE METABOLIC PANE Abraham 04-09-2024 Albumin [Mass/Vol] 4.5 g/dL Normal 3.5-5.0 [facility] Comment on above: Performed By: #### L AB17 ####School Inspector: FLORES PUGA ([id number])[facility] [place] ([facility])[address] ALP [Catalytic activity/Vol] 64 U/L Normal 38-126 [facility] Comment on above: Performed By: #### L AB17 ####School Inspector: FLORES PUGA ([id number])[facility] (SB[facility])[address] ALT [Catalytic activity/Vol] 18 U/L Normal 0-34 [facility] Comment on above: Performed By: #### L AB17 ####School Inspector: FLORES PUGA ([id number])[facility] ([facility])[address] Anion gap [Moles/Vol] 2 mmol/L Low 3-13 [facility] Comment on above: Performed By: #### L AB17 ####School Inspector: FLORES PUGA ([id number])[facility] ([facility])[address] AST [Catalytic activity/Vol] 25 U/L Normal 15-46 [facility] Comment on above: Performed By: #### L AB17 ####School Inspector: FLORES PUGA ([id number])[facility] (SB[facility])[address] Bilirubin [Mass/Vol] 0.5 mg/dL Normal 0.2-1.3 [facility] Comment on above: Performed By: #### L AB17 ####School Inspector: FLORES PUGA ([id number])[facility] [place] (SBHLAB)[address] Calcium [Mass/Vol] 9.8 mg/dL Normal 8.4-10.4 [facility] Comment on above: Performed By: #### L AB17 ####School Inspector: FLORES PUGA ([id number])[facility] ([facility])[address] Chloride [Moles/Vol] 100 mmol/L Normal 98-107 [facility] Comment on above: Performed By: #### L AB17 ####School Inspector: FLORES PUGA ([id number])[facility] (SB[facility])[address] CO2 [Moles/Vol] 31 mmol/L High 22-30 [facility] Comment on above: Performed By: #### L AB17 ####School Inspector: FLORES PUGA ([id number])[facility] [place] (SBHLAB)[address] Creatinine [Mass/Vol] 0.59 mg/dL Normal 0.52-1.04 [facility] Comment on above: Performed By: #### L AB17 ####School Inspector: FLORES PUGA ([id number])[facility] ([facility])[address] GLOMERULAR FILTRATION RATE ML/MIN/1.73 SQ M.PREDICTED >90.0 Normal >60.0 [facility] Comment on above: Result Comment: Calc ulation based on the Chronic Kidney Disease Epidemiology Collaboration (CKD-EPI) equation refit without adjustment for race Performed By: #### L AB17 ####School Inspector: FLORES PUGA ([id number])[facility] ([facility])[address] Glucose [Mass/Vol] 105 mg/dL High 70-100 [facility] Comment on above: Performed By: #### L AB17 ####School Inspector: FLORES PUGA ([id number])[facility] ([facility])[address] Potassium [Moles/Vol] 4.6 mmol/L Normal 3.5-5.1 [facility] Comment on above: Performed By: #### L AB17 ####School Inspector: FLORESLENA PUGA ([id number])[facility] ([facility])[address] Protein [Mass/Vol] 7.3 g/dL Normal 6.3-8.2 [facility] Comment on above: Performed By: #### L AB17 ####School Inspector: FLORESLENA PUGA ([id number])[facility] ([facility])[address] Sodium [Moles/Vol] 134 mmol/L Low 135-145 [facility] Comment on above: Performed By: #### L AB17 ####School Inspector: FLORESLENA PUGA ([id number])[facility] (SBHL[facility])[address] Urea nitrogen [Mass/Vol] 17 mg/dL Normal 7-17 [facility] Comment on above: Performed By: #### L AB17 ####School Inspector: FLORESLENA PUGA ([id number])[facility] ([facility])[address] Progress Noteon 04-09-2024 Progress Note ADVANCED CARE PLANSILVER Linares : 1950 Primary Care Physician: Martir Keene MD The patient and/or family/surrogate voluntarily agreed to participate in ACP services. Patient?s cognitive capacity: Full Code Status: [x] [FULL CODE - Continue all advanced life support: CPR,intubation,invasive procedures] [_] [DNR-CCA - DO NOT do CPR, intubation] [_] [DNR-SALES REPRESENTATIVE CASH REGISTERS - Comfort care only] [_] DNR form [was/was not] signed Summary of discussion: The patient health care POA/ surrogate is the following: None . [Condition that instigated the ACP on this DOS, relevant PMH, functional status, goals of care, and whom this was discussed with including names and relationship to the patient, and any relevant advance care documentation discussion] I answered all the patient/family questions that I could within the range and scope of the current medical situation. We discussed the medical conditions, risks, benefits, outcomes, and goals of care at this time for the patient's medical issues at hand in the face of the patient's chronic issues and current presentation. Total time spent: 5 minutes were spent discussing the patient's resuscitation status, advance care planning, and end of life care, with patient and/or family/surrogate. Travon Etienne PA-C [facility] 04/09/2024, 11:59 AM [facility] 36 03-06-2024 36 Surgery is approved--approval scanned into media. PAT:04/07 SX:04/14 POST-OP:04/27 Called pt and lvm with information. Packet was given at office visit and will be sent through [employer]. [address] 03-02-2024 36 Auth submitted via [employer]. Tracking#[id number] [address] 02-27-2024 36 KAREEM faxed to comp. Jalyn desai. [phone] 02-26-2024 36 Called patient and advised of Crissy's message. Pt stated that her insurance said no smoking is not one of their policies. I advised patient I can submit auth, but there is a potential it will be denied without the nicotine lab testing being completed. Advised we got an email stating that was a change within [employer] that all spinal fusions require the nicotine testing. Pt stated she stopped smoking yesterday and she verbalized understanding all information given. [place] [address] Nicotine use in any form can inhibit bony fusion from forming. This results in a non union of the vertebral bodies and can cause pain and instability. If a patient develops non union then a second operation is required. Insurance companies require patient to be nicotine free to prevent this from occurring. Chantix is an acceptable medication to utilize for smoking cessation [place] [address] Patient would like s ome clarification on why she needs to be nicotine free. She stated she spoke with her insurance who said "this is not true". She is also inquiring if it is okay with Dr Dietz if she uses Chantix for smoking cessation. [facility] 36 I placed an order fo r a nicotine blood test for insurance approval. 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 She verbalized understanding [place] [address] I have sent in a prescription for a medrol dose pack that she can utilize in the interim before surgery. If she feels she needs ativan that would have to be through her PCP. We do not prescribe anxiety medication prior to surgery [facility] 36 Patient currently us ing nicotine patches. Per her insurance she needs to be nicotine free for 6 weeks prior to sx. Sx moved to 04-14. She does have to have a nicotine lab draw done. Crissy are you able to place an order for this? Patient would also like to know if you could prescribe her Ativan and prednisone to get her to her sx date. [facility] 36 Sx scheduling proces s reviewed at office visit. Pt given a tentative sx date 04/03, but advised due to insurance and physician needs this date could change. Pt verbalized understanding. Per Patient: PT: NO PM: Comp. Pain Management Chiropractor: no [facility] Office Visiton 02-24-2024 Follow-up visit [id number] Chantal Linares 1950 F Date Provider Department Center 02/24/2024 [id number] DIETZ [facility] None Family History Problem Relation Age of Onset Heart attack Mother Dementia Father Rheum arthritis Father Osteoporosis Father Atrial fibrillation Father Other Father Comments: CHF Heart attack Sister No Known Problems Brother No Known Problems Son No Known Problems Son Cancer Maternal Grandfather Comments: Leukemia Cancer Other Comments: unknown origin--2 aunts Diabetes Other Comments: grandmother Family Status - Relation Status Age at Mother Father Alive Sister Alive Brother Alive Son Alive Son Alive Maternal Grandmother Maternal Grandfather Paternal Grandmother Paternal Grandfather Other Level of Service:38904 DE OFFICE/OUTPATIENT NEW MODERATE MDM 45 MINUTES Reason for Visit and Comments: New Patient [542] - Patient reports having cervical neck surgery in 2016. Patient is reporting numbness, tingling, and pain in bilateral upper extremities. She reports the right arm began in November 2023, and the left arm followed. She reports headaches, dizziness, nausea, tremors, and balance problems. She notes right shoulder pain. She saw Dr. White in 2019, diagnosed with cervical myelopathy, and was scheduled for surgery. That surgery was cancelled due to COVID. She reports her symptoms resolved until this past November. [facility] Progress Noteon 02-24-2024 Progress Note NEUROSURGERY CONSULT NOTE Patient Name: Chantal Linares Patient : 1950 PCP: Martir Keene MD History of Present Ilness: 73 y.o. presents with cervical neck pain. She has had previous ACDF [place] [address] Dietz. She began having new symptoms in 2019 and was evaluated by Dr. White and was dx with cervical myelopathy. She was planned for surgery with Dr. White and surgery was cancelled due to COVID. She did not reschedule due to pain improving. She reports that the pain resurfaced this past November?October. Started with right arm pain, wrist, arm, shoulder. Then pain started in the left. She has been following with Sports Medicine. Dr. Franco did cortisone injections in January in her wrists. Had EMG.NCT. She reports currently she gets dizzy, light headed, difficulty wal;jayson, difficulty with hand strength. Difficulty with weakness in her hands. Last week, dizziness, trembling, numbness in legs and feeling weak. She reports pins and needles in the arms. Chief Complaint Patient presents with New Patient Patient reports having cervical neck surgery in 2015. Patient is reporting numbness, tingling, and pain in bilateral upper extremities. She reports the right arm began in November 2023, and the left arm followed. She reports headaches, dizziness, nausea, tremors, and balance problems. She notes right shoulder pain. She saw Dr. White in 2019, diagnosed with cervical myelopathy, and was scheduled for surgery. That surgery was cancelled due to COVID. She reports her symptoms resolved until this past November. Conservative Treatments: Physical Therapy: Y NSAID's: prednisone Narcotics:No Muscle relaxants: Y Epidural injections: Y Chiropractor: N Past Medical History: Past Medical History: Diagnosis Date Acute bacterial sinusitis 09/07/2018 Anxiety CAD (coronary artery disease) COPD (chronic obstructive pulmonary disease) ([facility]) Depression Diastolic dysfunction, left ventricle Diverticulosis Fibromyalgia GERD (gastroesophageal reflux disease) Hyperlipidemia Irritable bowel syndrome Osteochondral lesion of talar dome SCHEDULED FOR THE SURGERY ON 08/16/22 AT [facility] (postoperative nausea and vomiting) Prediabetes controlled by diet Rheumatoid arthritis ([facility]) Spondylolisthesis, lumbar region Past Surgical History: Past Surgical History: Procedure Laterality Date ADENOIDECTOMY ANKLE SURGERY Right 08/16/2022 Right repair peroneal tendon and ankle arthroscopic debridement talar osteochondral lesion - Dr. Jimenez APPENDECTOMY CARDIAC CATHETERIZATION 10 11 2014 NO INTERVENTION CATARACT EXTRACTION CHOLECYSTECTOMY COLON SURGERY 03 16 2013 approx; sigmoidectomy diverticulosis COLON SURGERY COLONOSCOPY 01 06 2013 colonic polyps, diverticulosis, hemorrhoids HYSTERECTOMY NECK SURGERY C5-C7 ACDF (Dr. Adam) TONSILLECTOMY TONSILLECTOMY AND ADENOIDECTOMY (HISTORICAL) TUBAL LIGATION UPPER GASTROINTESTINAL ENDOSCOPY 01 06 2013 see report Home Medications: Prior to Admission medications Medication Sig Start Date End Date Taking? Authorizing Provider albuterol (ProAir HFA) 108 (90 Base) MCG/ACT inhaler Inhale 2 puffs every 4 hours as needed for wheezing or shortness of breath. 08/01/23 07/31/24 Yes Martir Keene MD ALPRAZolam (Xanax) 0.25 MG tablet take 1 tablet by mouth NIGHTLY NEEDED FOR SLEEP OR ANXIETY FOR UP TO 90 DAYS 06/01/22 Yes Martir Keene MD cyanocobalamin (Vitamin B-12) 100 MCG tablet Take 50 mcg by mouth in the morning. Yes Historical Provider, Fluticasone Furoate-Vilanterol (BREO ELLIPTA IN) inhale 1 puff by mouth INTO THE LUNGS daily Inhalation for 30 Yes Historical Provider, gabapentin (Neurontin) 100 MG capsule Take 300 mg by mouth 2 times daily. 03/12/22 Yes Historical Provider, lansoprazole (Prevacid) 30 MG DR capsule Take 30 mg by mouth in the morning. 02/11/22 Yes Historical Provider, losartan (Cozaar) 50 MG tablet Nightly. 02/06/22 Yes Historical Provider, montelukast (Singulair) 10 MG tablet Take 1 tablet (10 mg) by mouth Nightly. 09/16/23 09/15/24 Yes Martir Keene MD naloxone (Narcan) 4 mg/0.1 mL nasal spray instill 1 spray in 1 nostril if needed for OPIOID OVERDOSE may re... (REFER TO PRESCRIPTION NOTES). 08/16/22 Yes Historical Provider, predniSONE (Deltasone) 20 MG tablet Take 1 tablet (20 mg) by mouth daily for 7 days. 02/19/24 02/26/24 Yes Jake Franco MD sertraline (Zoloft) 100 MG tablet take 2 tablets by mouth once daily 05/22/23 Yes Martir Keene MD simvastatin (Zocor) 40 MG tablet take 1 tablet by mouth once daily 06/26/23 Yes Martir Keene MD tiZANidine (Zanaflex) 4 MG tablet Take 4 mg by mouth 3 times daily as needed. 03/12/22 Yes Historical Provider, traMADol (Ultram) 50 MG tablet take 1 tablet by mouth once daily if needed for pain 03/12/22 Yes Historical Provider, budesonide-formoterol (Symbicort) 160-4.5 MCG/ACT inhaler Inhale 2 puffs in the (more content not included)... Normal [facility] Office Visiton 02-19-2024 Follow-up visit [id number] Chantal Linares 1950 F Date Provider Department Center 02/19/2024 [id number], [facility] Spo None Family History Problem Relation Age of Onset Heart attack Mother Dementia Father Rheum arthritis Father Osteoporosis Father Atrial fibrillation Father Other Father Comments: CHF Heart attack Sister No Known Problems Brother No Known Problems Son No Known Problems Son Cancer Maternal Grandfather Comments: Leukemia Cancer Other Comments: unknown origin--2 aunts Diabetes Other Comments: grandmother Family Status - Relation Status Age at Mother Father Alive Sister Alive Brother Alive Son Alive Son Alive Maternal Grandmother Maternal Grandfather Paternal Grandmother Paternal Grandfather Other Level of Service:59683 DE OFFICE/OUTPATIENT ESTABLISHED MOD MDM 30 MIN Reason for Visit and Comments: Follow-up [587860] - Bilateral UE Normal [facility] Progress Noteon 02-19-2024 Progress Note [facility] [address] [facility] [address] Dept: [phone] Dept Chief Complaint Patient presents with Follow-up Bilateral UE Subjective History of Present Illness: Chantal Linares follows up today for bilateral upper extremity symptoms. Since the last visit on 01/31/2024, symptoms are worsening. Carpal tunnel injections have provided minimal relief. Current symptoms are aching, numb, burning, tingling, weakness, headaches, dizziness, and "heat flashes". She had not had any falls but notes her balance is worsening. She rates symptoms as a 6/10 at rest and a 9/10 at worst. Imaging to date: Hand & Wrist X-rays 12/2023, Cervical MRI 02/13/2024 Treatment to date: PT/OT/HEP: no recent PT Ice: yes, helpful Heat: yes, helpful Medications: Topicals: yes, Diclofenac/Voltaren, helpful Tylenol: yes, helpful NSAIDs: yes, Ibuprofen/Motrin/Advil, helpful Oral steroids: yes, Prednisone, helpful Muscle relaxants: yes, Tizanidine/Zanaflex, not helpful Nerve medications: yes, Gabapentin/Neurontin, helpful Targeted injections: Bilateral CT injections 01/31/2024, minimal relief Assistive devices: bilateral cock-up wrist splints, not helpful Prior surgery: ACDF C5-[address] 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 Physical Exam: General: Alert, well appearing, no acute distress. Respiratory: Breathing comfortably on room air. No respiratory distress. Skin: Warm, dry, intact. No visible rashes or erythema overlying area of focused exam. Musculoskeletal/Neurolo gic: Cervical Spine Inspection: Posture: Normal. Ecchymosis: No ecchymosis noted of the examined area. Range of Motion: Limited in extension and lateral bend bilaterally. Strength: 4/5 weakness with resisted elbow flexion on the right. Otherwise within normal limits for age. Sensation: Sensation to light touch altered diffusely over right hand. Reflexes: Right Biceps: 3+. Left Biceps: 3+. Right Brachioradialis: 3+. Left Brachioradialis: 3+. Right Triceps: 2+. Left Triceps: 2+. Special Tests: Tandem Gait: Unable to complete. External Notes No pertinent interval updates Labs Lab Results Component Value Date HGBA1C 6.2 (H) 08/27/2023 Lab Results Component Value Date CREATININE 0.46 (L) 10/19/2023 Imaging Images reviewed with patient today I have personally reviewed the images pertinent to the appointment today Cervical Spine MRI Date: 02/13/2024 Findings: Status post C5-7 anterior cervical discectomy and fusion. Straightening of the cervical lordosis. Normal background marrow signal intensity for age. Normal caliber spinal cord. No cord signal changes identified when accounting for motion artifact. There is no abnormal intrathecal enhancement. C2-3: No stenosis. C3-4: Uncovertebral and facet arthrosis mildly narrowing the left neural foramen. C4-5: Disc-osteophyte complex moderately narrowing the spinal canal, flattening the ventral cord. Preserved CSF dorsally. Uncovertebral and facet arthrosis moderately narrowing the right neural foramen and mildly narrowing the left neural foramen. C5-6: Disc-osteophyte complex mildly narrowing the left aspect of the spinal canal. Uncovertebral and facet arthrosis mildly narrowing the neural foramina. C6-7: Uncovertebral and facet arthrosis moderately narrowing the right neural foramen and mildly narrowing the left neural foramen. C7-T1: No stenosis. The prevertebral and paravertebral soft tissues are unremarkable. IMPRESSION: Junctional spondylosis with a C4-5 disc-osteophyte complex flattening the ventral cord but preserved CSF dorsally. EMG/NCT No interval studies Procedure No procedures completed today Assessment Diagnosis Plan 1. Chronic neck pain with history of cervical spinal surgery [facility] Neurosurgery Ambulatory referral to Physical Therapy 2. Cervical radiculopathy [facility] Neuro[facility] Ambulatory referral to Physical Therapy 3. Balance problems [facility] Neurosurgery Ambulatory referral to Physical Therapy Plan Activity: Avoid/limit aggravating factors. Progress activity under guidance of PT. Medication(s): Prednisone burst as prescribed. Test(s)/Imaging/Referra l(s): Referral to Physical Therapy. Referral back to Dr. Dietz. Additional Intervention(s): Consider referral to Pain Management for targeted cervical injections. Follow up: with Dr. Dietz as directed. Sooner as needed. Jake Franco MD 02/19/2024 10:00 AM Please note that portions of this note may have been completed with voice recognition software. Documentation reviewed prior to signing but minor errors in welder shielded metal arc may have occurred. [facility] 36on 02-18-2024 36 Left message for patient to schedule appointment. Sent VeryLastRoomhart message. Mailed postcard. [facility] [id number] 02-17-2024 [id number] MRI completed 02/12, follow up scheduled. Pain Medicine vs Surgical consult pending response to carpal tunnel injections. [facility] Progress Noteon 02-14-2024 Progress Note Pt due for 2023 AWV, please call to schedule - thank you! Last OV 08/23/23 No upcoming appts scheduled [facility] 36on 02-12-2024 36 Please see other TE. [facility] 36on 02-10-2024 36 Name of caller: Chantal Contact phone number: [phone] Relationship to Patient: Self Provider: Joan Practice: Ortho Chief Complaint/Reason for Call: Pt called in states her MRI cervical spine is scheduled for 02/12, and she called to make her test result follow up. Pt is sched for the next available, 03/25 at [place] but is asking to be brought in sooner. Pt states she will go to either [place] or [place] location. Please advise. Best time of day caller can be reached: Any Patient advised that office/PCP has 24-48 business hours to return their call: N/A [facility] Office Visiton 01-31-2024 Follow-up visit [id number] Chantal Linares 1950 F Date Provider Department Center 01/31/2024 [id number], [facility] None Family History Problem Relation Age of Onset Heart attack Mother Dementia Father Rheum arthritis Father Osteoporosis Father Atrial fibrillation Father Other Father Comments: CHF Heart attack Sister No Known Problems Brother No Known Problems Son No Known Problems Son Cancer Maternal Grandfather Comments: Leukemia Cancer Other Comments: unknown origin--2 aunts Diabetes Other Comments: grandmother Family Status - Relation Status Age at Mother Father Alive Sister Alive Brother Alive Son Alive Son Alive Maternal Grandmother Maternal Grandfather Paternal Grandmother Paternal Grandfather Other Level of Service:29695 DE OFFICE/OUTPATIENT ESTABLISHED MOD MDM 30 MIN (25,50) Reason for Visit and Comments: Follow-up [790618] - Bilateral Hands Normal [facility] PATINSon 01-31-2024 PATINS INSTRUCTIONS FOR MRI : We have to get approval from your insurance company for your MRI of your Cervical Spine which can take up to 3 weeks or longer. Once we have approval from your insurance, Barbie from our office will call you with your test date and time. She will make your follow up appt with at that time to review the results. If Barbie leaves you a message please call [phone] to make your follow up with . If you get your MRI done at facility that is outside of [facility] you will need to get the images burned on a disc. You will need to bring that disc to your follow up appointment since the provider can not see the images from outside facilities. Normal [facility] Progress Noteon 01-31-2024 Progress Note [facility] [address] [place] [address] [place] [id number] Dept: [phone] Dept Chief Complaint Patient presents with Follow-up Bilateral Hands Subjective History of Present Illness: Chantal Linares follows up today for bilateral hand symptoms. Since the last visit on 01/10/2024, symptoms are worsening. Current symptoms are aching, burning, tingling, and weakness . She endorses some new referred pain through the right upper extremity into the shoulder. Neck pain and stiffness are about the same. She does note difficulty with balance. She rates symptoms as a 4/10 at rest and a 9/10 at worst. 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 Respiratory: Breathing comfortably on room air. No respiratory distress. Skin: Warm, dry, intact. No visible rashes or erythema overlying area of focused exam. Musculoskeletal/Neurolo gic: Cervical Spine Inspection: Posture: Normal. Ecchymosis: No ecchymosis noted of the examined area. Palpation: Tender to palpation: directly over the cervical spine and paraspinal musculature bilaterally Range of Motion: Limited in extension and lateral bend bilaterally. Strength: Weakness with speed runner strength bilaterally. 4/5 with resisted elbow flexion on the right. Otherwise within normal limits for age Sensation: Sensation to light touch altered over digits 1-3 bilaterally. Reflexes: Right Biceps: 3+. Left Biceps: 3+. Right Brachioradialis: 3+. Left Brachioradialis: 3+. Right Triceps: 2+. Left Triceps: 2+. Special Tests: Spurling's: Equivocal, produces posterior neck pain without radicular pain, numbness, or tingling. Phalen's: Positive, reproduces symptomatic numbness/tingling. Tinel's at carpal tunnel: Normal. Tinel's at cubital tunnel: Normal. Tandem gait: Unsteady, unable to complete. External Notes No pertinent interval updates Labs Lab Results Component Value Date HGBA1C 6.2 (H) 08/27/2023 Lab Results Component Value Date CREATININE 0.46 (L) 10/19/2023 Lab Results Component Value Date SEDRATEBYMOD 2 01/10/2024 Lab Results Component Value Date CREACTIVEPRO 3.0 01/10/2024 Imaging No new imaging since last visit Cervical Spine MRI Date: 07/22/2019 Findings: Anterior plate and screw fixation is present at C5-C7. There is minimal reversal of the mid cervical lordosis. Minimal anterior listhesis is present at C3/C4. The cervical vertebral bodies are in gross anatomic alignment. There is no acute fracture. There is no focal marrow replacing lesion. The cervical cord is grossly of normal caliber without signal abnormality. There is no cerebellar tonsillar ectopia. The paraspinal musculature is grossly unremarkable. At the C2/C3 level, mild degenerative facet changes are present. The central canal is patent. There is no significant foraminal narrowing. At the C3/C4 level, the central canal and foramina are patent. Mild degenerative facet changes are present. At the C4/C5 level, small broad-based posterior disc osteophyte complex causes impression on the ventral thecal sac with mild flattening of the ventral cord. Mild narrowing of the central canal is noted. The foramina are patent. Mild degenerative facet changes are noted. At the C5/C6 level, anterior cervical fusion is present. Small posterior osteophytes cause mild impression on the ventral thecal sac. The central canal is otherwise patent. Minimal left and no significant right-sided foraminal narrowing is noted. At the C6/C7 level, anterior plate and screw fixation is present. Tiny posterior osteophytes are present. The central canal is patent. Moderate bilateral foraminal narrowing is noted. At the C7/T1 level, the central canal and foramina are patent. Minimal degenerative facet changes are present. Impression: Anterior plate and screw fixation from C5-C7. Mild posterior disc bulging at C4/C5 causes mild flattening of the ventral cord. Minimal anterior listhesis at C3/C4. EMG/NCT Date: 01/16/2024 Impression: This is an abnormal study. There is electrophysiological evidence of a right median neuropathy at or distal to the wrist, e.g. carpal tunnel syndrome, which is mild in severity electrophysiologica (more content not included)... Normal [facility] [id number] 01-21-2024 [id number] Called and spoke wit h patient. Patient voiced understanding of EMG & lab results. Patient scheduled for a FU/possible injections 01/31/2024. Normal [facility] 36on 01-21-2024 36 Called and spoke wit h patient. Patient voiced understanding of EMG & lab results. Patient scheduled for a FU/possible injections 01/31/2024. [facility] 36 ----- Message from Jesus Franco MD sent at 01/20/2024 1:11 PM EDT ----- Please contact patient with EMG/NCT and lab results and next steps. Nerve testing shows mild carpal tunnel syndrome on the right. Labs show one abnormal, non-specific finding (+MAX). Inflammatory markers low currently. Recommend follow up to reassess and consider nerve injection(s) next steps. Please let me know if there are any questions or concerns. Thank you Normal [facility] No Panel Informationon 01-15 Berny LouisDO 01/16/2024 2:02 PM [facility] Neurology Lab EMG/NCS report: Patient: Chantal Linares AGE: 73 y.o. Handedness: Right Gender: Female Referring physician: Jake Franco MD Study date: 01/16/24 Reason for referral: Patient presents with bilateral hand pain and paresthesia. The patient has weakness in the right hand greater than the left hand. Patient also has neck pain. EMG/nerve conduction study of the bilateral upper extremities is done to evaluate for mononeuropathy affecting the right or left upper extremity versus right or left cervical radiculopathy. Summary: The left median sensory nerve action potential was unremarkable. The right median sensory nerve action potential was unremarkable. The left ulnar sensory nerve action potential was unremarkable. The right ulnar sensory nerve action potential was unremarkable. The left radial sensory nerve action potential was unremarkable. The right radial sensory nerve action potential was unremarkable. The left median to ulnar palmar comparison mixed nerve action potential was unremarkable. The right median to ulnar palmar comparison mixed nerve action potential was remarkable for a prolonged median peak latency compared to its ulnar counterpart. The left median to radial thumb comparison study was unremarkable. The right median to radial thumb comparison study was remarkable for a prolonged median peak latency compared to its radial counterpart. The left median to APB compound muscle action potential was unremarkable. The right median to APB compound muscle action potential was unremarkable. The left ulnar to ADM compound muscle action potential was unremarkable. The right ulnar to ADM compound muscle action potential was unremarkable. The left ulnar to FDI compound muscle action potential was unremarkable. The right ulnar to FDI compound muscle action potential was unremarkable. Concentric needle EMG was performed in the bilateral upper extremities. No increased insertional activity, fibrillation potentials, fasciculation potentials or positive sharp waves were seen in any muscle tested. Motor unit action potentials demonstrated normal morphology and firing pattern throughout except for the right pronator teres and right triceps brachii which showed increased amplitude, duration and reduced recruitment. Impression: This is an abnormal study. There is electrophysiological evidence of a right median neuropathy at or distal to the wrist, e.g. carpal tunnel syndrome, which is mild in severity electrophysiologically. There is also evidence of a chronic, inactive, right-sided C7 radiculopathy with no evidence of active ongoing denervation at that level. There is no evidence of a mononeuropathy affecting the left upper extremity on this study. There is no evidence of an active right or left-sided cervical radiculopathy on this study. All normal values/reference values for this study were taken from the [facility] reference values. This dictation was done by using the [employer] dictation system. It has been proofread but still may contain unrecognized voice recognition errors. [facility] Office Visiton 01-10-2024 Follow-up visit [id number] Milagros,Chantal J 1950 F Date Provider Department Center 01/10/2024 [id number] [facility] None Family History Problem Relation Age of Onset Heart attack Mother Dementia Father Rheum arthritis Father Osteoporosis Father Atrial fibrillation Father Other Father Comments: CHF Heart attack Sister No Known Problems Brother No Known Problems Son No Known Problems Son Cancer Maternal Grandfather Comments: Leukemia Cancer Other Comments: unknown origin--2 aunts Diabetes Other Comments: grandmother Family Status - Relation Status Age at Mother Father Alive Sister Alive Brother Alive Son Alive Son Alive Maternal Grandmother Maternal Grandfather Paternal Grandmother Paternal Grandfather Other Level of Service:47329 DE OFFICE/OUTPATIENT ESTABLISHED MOD MDM 30 MIN Reason for Visit and Comments: Hand Pain [491960] - Bilateral Normal [facility] Progress Noteon 01-10-2024 Progress Note [facility] [address] [place] [address] [place] [address] Dept: [phone] Dept Chief Complaint Patient presents with Hand Pain Bilateral Subjective History of Present Illness: Chantaldawit Linares is a 73 y.o. right hand dominant female who presents today for evaluation of bilateral hand/wrist pain. Location: Right thumb, palm, & generalized wrist Left thumb, and generalized wrist Onset: chronic, acutely worsening over the past 6 months Injury: no Quality: aching, tight/stiff, sharp, burning, and swelling Mechanical symptoms: no Radiation of symptoms: yes - Right forearm to the elbow Severity: 6/10 at rest and 10/10 at worst Exacerbating factor(s): repetitive use, gripping, pinching, opening jars, and performing daily hygiene Relieving factor(s): none Timing: all day - worst in morning, afternoon ok, worsens again in the evening Imaging to date: Hand & Wrist X-rays 12/2023 Treatment to date: PT/OT/HEP: no Ice: yes, helpful Heat: yes, helpful Medications: Topicals: yes, Diclofenac/Voltaren, helpful Tylenol: yes, helpful NSAIDs: yes, Ibuprofen/Motrin/Advil, helpful Oral steroids: yes, Prednisone, helpful Muscle relaxants: yes, Tizanidine/Zanaflex, not helpful Nerve medications: yes, Gabapentin/Neurontin, helpful Targeted injections: none Assistive devices: brace (Right side), helpful Prior surgery: no 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 Respiratory: Breathing comfortably on room air. No respiratory distress. Skin: Warm, dry, intact. No visible rashes or erythema overlying area of focused exam. Musculoskeletal/Neurolo gic: Bilateral Hands. Contralateral side is normal unless otherwise noted. Inspection: Swelling: No significant joint effusions. Ecchymosis: No ecchymosis noted of the examined area. Atrophy: Mild thenar muscle atrophy bilaterally. Palpation: Tender to palpation: diffusely tender to palpation, equivocal Range of Motion: Full, pain with maximal flexion. Locking/Triggering: None. Strength: Weakness with speed runner strength bilaterally. Otherwise within normal limits for age Sensation: Sensation to light touch intact, symmetric of the examined bilateral upper extremities. Special Tests: Anatomic snuffbox: Generalized pain, equivocal. CMC grind: Positive bilaterally. TFCC grind: Positive bilaterally. Kalyan's: Generalized pain, equivocal. Phalen's: Positive, reproduces symptomatic numbness/tingling. Tinel's at carpal tunnel: Normal. Tinel's at cubital tunnel: Normal. External Notes No pertinent interval updates Labs Lab Results Component Value Date HGBA1C 6.2 (H) 08/27/2023 Lab Results Component Value Date CREATININE 0.46 (L) 10/19/2023 Imaging Images reviewed with patient today I have personally reviewed the images pertinent to the appointment today Left Hand X-rays Date: 12/17/2023 Findings: Three views of the left hand shows no acute fracture or dislocation. There are mild degenerative changes of the CMC joint. The alignment is anatomic. Bony mineralization and soft tissues are normal. IMPRESSION: Mild degenerative changes involving the CMC joint. Left Wrist X-rays Date: 12/17/2023 Findings: Mild degenerative change at the first CMC joint. Joint spaces are otherwise maintained. No erosive changes. No fracture dislocation or acute bone destruction. No soft tissue gas or foreign body. IMPRESSION: Mild degenerative changes at first CMC joint. Right Hand X-rays Date: 12/03/2023 Findings: There is no fracture or dislocation. Some minor spurring about the first carpometacarpal joint. Marked narrowing and articular surface sclerosis between the trapezium and scaphoid. Cystic focus within the scaphoid measuring 0.4 cm, likely benign process. No other bone lesion. There is no soft tissue abnormality. IMPRESSION: Arthritic change within the lateral wrist and base of the thumb. No acute abnormality. Right Wrist X-rays Date: 12/03/2023 Findings: Diffuse osteopenia. Mild degenerative change of the thumb CMC joint and the triscaphe articulation.. No acute fracture. No dislocation. There is no significant soft tissue abnormality. IMPRESSION: Mild DJD. Diffuse osteopenia. EMG/NCT None available Procedure No procedures completed today Assessment Diagnosis Plan 1. Bilateral hand pain Rheumatoid factor MAX C-reactive protein Sedimentation rate, automated Cyclic citrul peptide antibody, IgG NERVE CONDUCTION TEST WITH EMG Rheumatoid factor MAX C-reactive protein Sedimentation rate, automated Cyclic citrul peptide antibody, IgG General supply request: DME Order for Upper extremity 2. Weakness of both hands NERVE CONDUCTION TEST (more content not included)... Normal [facility] No Panel Informationon 10-19 P [place] 61 degrees [facility] DE Interval 174 ms [facility] QRS [place] 40 degrees [facility] QRSD Interval [facility] QT Interval 370 ms [facility] QTC Interval 438 ms [facility] T Wave [place] 31 degrees [facility] Sinus rhythm Compared to ECG 08/09/22 No significant change Electronically Signed On 10-20-2023 02:27:46 EDT by Chris Bartlett CV Chris Carbajal D O - 10/20/2023 IMPRESSION: Sinus rhythm Compared to ECG 08/09/22 No significant change Electronically Signed On 10-20-2023 02:27:46 EDT by Chris Bartlett [facility] Vital signson 10-20-2023 Heart rate 84 /min bpm [facility] CBC W Auto Differential pane l (Bld)on 10-19-2023 Basophils (Bld) [#/Vol] 0.0 10*3/uL 0.0 - 0.2 10*3/uL [facility] Basophils/100 WBC (Bld) 0.3 % 0.0 - 2.0 % [facility] Eosinophils (Bld) [#/Vol] 0.0 10*3/uL 0.0 - 0.5 10*3/uL [facility] Eosinophils/100 WBC (Bld) 0.0 % 0.0 - 6.0 % [facility] Erythrocyte distribution width (RBC) [Ratio] 13.8 % 11.5 - 15.0 % [facility] Hematocrit (Bld) [Volume fraction] 42.3 % 35.0 - 47.0 % [facility] Hemoglobin (Bld) [Mass/Vol] 14.0 g/dL 11.7 - 16.0 g/dL [facility] Immature granulocytes (Bld) [#/Vol] 0.0 10*3/uL NINF - 0.1 10*3/uL [facility] Immature granulocytes/100 WBC (Bld) 0.1 % 0.0 - 2.0 % [facility] Interpretation and review of laboratory results Abnormal [facility] Lymphocytes (Bld) [#/Vol] 1.5 10*3/uL 1.0 - 4.3 10*3/uL [facility] Lymphocytes/100 WBC (Bld) 21.5 % 15.0 - 45.0 % [facility] MCH (RBC) [Entitic mass] 31.1 pg 26.0 - 34.0 pg [facility] MCHC (RBC) [Mass/Vol] 33.1 % 30.5 - 36.0 % [facility] MCV (RBC) [Entitic vol] 94.0 fL 77.0 - 99.0 fL [facility] Monocytes (Bld) [#/Vol] 0.4 10*3/uL 0.0 - 0.9 10*3/uL [facility] Monocytes/100 WBC (Bld) 5.5 % 5.0 - 13.0 % [facility] Neutrophils (Bld) [#/Vol] 5.0 10*3/uL 1.8 - 7.5 10*3/uL [facility] Neutrophils/100 WBC (Bld) 72.6 % 38.0 - 82.0 % [facility] Nucleated RBC/100 WBC (Bld) [Ratio] 0.0 % [facility] Platelet mean volume (Bld) [Entitic vol] 8.5 fL Low 9.0 - 12.7 fL [facility] Comment on above: MPV is a calculated measurement using platelet volume ratio Platelets (Bld) [#/Vol] 326 10*3/uL 140 - 440 10*3/uL [facility] RBC (Bld) [#/Vol] 4.50 10*6/uL 3.80 - 5.2 0 10*6/uL [facility] WBC (Bld) [#/Vol] 6.9 10*3/uL 3.6 - 10.7 10*3/uL [facility] Comprehensive metabolic 1998 panelon 10-19-2023 Albumin [Mass/Vol] 4.5 g/dL 3.5 - 5.0 g/dL [facility] ALP [Catalytic activity/Vol] 65 U/L 38 - 126 U/L [facility] ALT [Catalytic activity/Vol] 18 U/L 0 - 34 U/L [facility] Anion gap [Moles/Vol] 8 mmol/L 3 - 13 mmol/L [facility] AST [Catalytic activity/Vol] 33 U/L 15 - 46 U/L [facility] Bilirubin [Mass/Vol] 0.6 mg/dL 0.2 - 1 .3 mg/dL [facility] Calcium [Mass/Vol] 9.8 mg/dL 8.4 - 10. 4 mg/dL [facility] Chloride [Moles/Vol] 98 mmol/L 98 - 10 7 mmol/L [facility] CO2 [Moles/Vol] 29 mmol/L 22 - 30 mmol/L [facility] Creatinine [Mass/Vol] 0.46 mg/dL Low 0.52 - 1.04 mg/dL [facility] GFR/1.73 sq M.predicted MDRD (S/P/Bld) [Vol rate/Area] - PINF [facility] Comment on above: Calculation based on the Chronic Kidney Disease Epidemiology Collaboration (CKD-EPI) equation refit without adjustment for race Glucose [Mass/Vol] 107 mg/dL High 70 - 100 mg/dL [facility] Potassium [Moles/Vol] 4.3 mmol/L 3.5 - 5.1 mmol/L [facility] Protein [Mass/Vol] 7.4 g/dL 6.3 - 8.2 g/dL [facility] Sodium [Moles/Vol] 135 mmol/L 135 - 145 mmol/L [facility] Urea nitrogen [Mass/Vol] 22 mg/dL High 7 - 17 mg/dL [facility] Laboratory - Chemistry and C hemistry - challengeon 10-19-2023 CK [Catalytic activity/Vol] 176 U/L High 30 - 170 U/L [facility] Laboratory - Microbiology an d Antimicrobial susceptibilityon 10-19-2023 FLUAV RNA KARIN+probe Ql (Resp) Not detected Not Detected [facility] FLUBV RNA KARIN+probe Ql (Resp) Not detected Not Detected [facility] RSV RNA KARIN+probe Ql (Resp) Not detected Not Detected [facility] SARS-CoV-2 (COVID-19) RNA KARIN+probe Ql (Resp) Not detected Not Detected [facility] SARS-CoV-2 (COVID-19) RNA KARIN+probe Ql (Unsp spec) Methodology: real-time, RT-PCR The SARS-CoV-2, Flu A/B, and RSV Combo assay is intended for in vitro diagnostic use under the FDA Emergency Use Authorization (EUA). This test has not been FDA cleared or approved. In compliance with this authorization, please visit www.fda.gov/media/75426 5/download or www.fda.gov/media/70784 6/download to access the applicable information sheets. [facility] No Panel Informationon 10-18 Interpretation and review of laboratory results Abnormal [facility] SARS-CoV-2, Flu A/B, and RSV Comboon 10-19-2023 Interpretation and review of laboratory results Normal [facility] XR Chest Single viewon 10-18 FINDINGS/IMPRESSION: Limitations: Mild patient rotation. Lines, tubes, and devices: None. Cardiomediastinal silhouette: Heart size is within normal limits. Mild tortuosity of the thoracic aorta Lungs/Pleura: Streaky left greater than right basilar opacities likely reflect atelectasis. Prominence of the central pulmonary bronchovascular markings could reflect mild bronchitis or less likely mild pulmonary vascular congestion. No sizable pleural effusions. No pneumothorax. Osseous structures: Degenerative spondylosis in the visualized spine. Plate and screw fixation lower cervical spine. Soft tissues: No soft tissue abnormality is detected. Report Dictated on Electronically Signed By: Rigoberto Gong MD Electronically Signed Date/Time: 10/19/2023 10:14 PM EDT [facility] [employer] Patient Name: CHANTAL ROGERS : 1950 Exam Date/Time: 10/19/2023 22:12 Procedure: XR CHEST 1 VIEW Ordering Provider: BARTLETT DUSTIN Reason For Exam: cough CHEST - PORTABLE: CLINICAL INDICATION: Cough. TECHNIQUE: Portable AP COMPARISON: None. [facility] Jessica Gong MD - 10/19/2023 Patient Name: CHANTAL LINARES : 1950 Exam Date/Time: 10/19/2023 22:12 Procedure: XR CHEST 1 VIEW Ordering Provider: BARTLETT DUSTIN Reason For Exam: cough CHEST - PORTABLE: CLINICAL INDICATION: Cough. TECHNIQUE: Portable AP COMPARISON: None. IMPRESSION: FINDINGS/IMPRESSION: Limitations: Mild patient rotation. Lines, tubes, and devices: None. Cardiomediastinal silhouette: Heart size is within normal limits. Mild tortuosity of the thoracic aorta Lungs/Pleura: Streaky left greater than right basilar opacities likely reflect atelectasis. Prominence of the central pulmonary bronchovascular markings could reflect mild bronchitis or less likely mild pulmonary vascular congestion. No sizable pleural effusions. No pneumothorax. Osseous structures: Degenerative spondylosis in the visualized spine. Plate and screw fixation lower cervical spine. Soft tissues: No soft tissue abnormality is detected. Report Dictated on Electronically Signed By: Rigoberto Gong MD Electronically Signed Date/Time: 10/19/2023 10:14 PM EDT [facility] Radiology Study observation (narrative) [facility] XR Chest Single viewOrdered By: Jessica Gong on 10-19-2023 [employer] Work Phone: No Panel Informationon 10-09 No fracture or dislocation of the right knee is identified. Mild patellofemoral osteoarthritis of the right knee. Report Dictated on Electronically Signed By: Lonnie Bermudez Electronically Signed Date/Time: 10/09/2022 4:14 PM EDT [facility] Patient Name: CHANTAL ROGERS : 1950 Exam Date/Time: 10/09/2022 11:15 Procedure: XR KNEES ANTEROPOSTERIOR STANDING BILATERAL Ordering Provider: MARS EMILY Reason For Exam: KNEE PAIN STANDING AP VIEW BILATERAL KNEES RIGHT KNEE SERIES CLINICAL INDICATION: Pain Standing AP and PA flexed views of the bilateral knees were performed. Lateral and sunrise plain film views of the right knee were also obtained. COMPARISON: None FINDINGS: The standing AP view of the bilateral knees demonstrates the joint spaces to be relatively well-preserved. No fracture or dislocation of the right knee is identified. Mild joint space loss and degenerative spurring of the patellofemoral compartment is noted. There is no joint effusion on the lateral view. Soft tissues are unremarkable. [facility] Lonnie Bermudez MD - 10/09/2022 Patient Name: CHANTAL LINARES : 1950 Exam Date/Time: 10/09/2022 11:15 Procedure: XR KNEES ANTEROPOSTERIOR STANDING BILATERAL Ordering Provider: MARS, , [place] Reason For Exam: KNEE PAIN STANDING AP VIEW BILATERAL KNEES RIGHT KNEE SERIES CLINICAL INDICATION: Pain Standing AP and PA flexed views of the bilateral knees were performed. Lateral and sunrise plain film views of the right knee were also obtained. COMPARISON: None FINDINGS: The standing AP view of the bilateral knees demonstrates the joint spaces to be relatively well-preserved. No fracture or dislocation of the right knee is identified. Mild joint space loss and degenerative spurring of the patellofemoral compartment is noted. There is no joint effusion on the lateral view. Soft tissues are unremarkable. IMPRESSION: No fracture or dislocation of the right knee is identified. Mild patellofemoral osteoarthritis of the right knee. Report Dictated on Electronically Signed By: Lonnie Bermudez Electronically Signed Date/Time: 10/09/2022 4:14 PM EDT [facility] Radiology Study observation (narrative) [facility] No Panel InformationOrdered By: Lonnie Bermudez on 10-09-2022 [employer] Work Phone: XR Knee - right 1 or 2 Views on 10-09-2022 Patient Name: CHANTAL ROGERS : 1950 Exam Date/Time: 10/09/2022 11:15 Procedure: XR KNEE 1-2 VIEWS RIGHT Ordering Provider: MARS EMILY Reason For Exam: right knee OA STANDING AP VIEW BILATERAL KNEES RIGHT KNEE SERIES CLINICAL INDICATION: Pain Standing AP and PA flexed views of the bilateral knees were performed. Lateral and sunrise plain film views of the right knee were also obtained. COMPARISON: None FINDINGS: The standing AP view of the bilateral knees demonstrates the joint spaces to be relatively well-preserved. No fracture or dislocation of the right knee is identified. Mild joint space loss and degenerative spurring of the patellofemoral compartment is noted. There is no joint effusion on the lateral view. Soft tissues are unremarkable. [facility] Lonnie Bermudez MD - 10/09/2022 Patient Name: CHANTAL LINARES : 1950 Exam Date/Time: 10/09/2022 11:15 Procedure: XR KNEE 1-2 VIEWS RIGHT Ordering Provider: MARS EMILY Reason For Exam: right knee OA STANDING AP VIEW BILATERAL KNEES RIGHT KNEE SERIES CLINICAL INDICATION: Pain Standing AP and PA flexed views of the bilateral knees were performed. Lateral and sunrise plain film views of the right knee were also obtained. COMPARISON: None FINDINGS: The standing AP view of the bilateral knees demonstrates the joint spaces to be relatively well-preserved. No fracture or dislocation of the right knee is identified. Mild joint space loss and degenerative spurring of the patellofemoral compartment is noted. There is no joint effusion on the lateral view. Soft tissues are unremarkable. IMPRESSION: No fracture or dislocation of the right knee is identified. Mild patellofemoral osteoarthritis of the right knee. Report Dictated on Electronically Signed By: Lonnie Bermudez Electronically Signed Date/Time: 10/09/2022 4:14 PM EDT [facility] XR Hip - left 3 Viewson 07-05 No fracture or dislocation of the pelvis or left hip. Mild osteoarthritis of the bilateral hips. Report Dictated on Electronically Signed By: Lonnie Bermudez Electronically Signed Date/Time: 07/25/2022 11:24 AM EST [employer] Patient Name: CHANTAL ROGERS : 1950 [id number] Exam Date/Time: 07/25/2022 09:57 Procedure: XR HIP 2 OR 3 VW LEFT Ordering Provider: GRAMAJO JACK Reason For Exam: hip pain LEFT HIP CLINICAL INDICATION: Left hip pain A single AP view of the pelvis followed by AP and lateral views of the left hip were obtained. COMPARISON: 09/13/2021 FINDINGS: No fracture or dislocation of the pelvis or left hip is identified. Mild loss of joint space and acetabular spurring is noted within the left and right hip joints. The sacroiliac joints appear grossly unremarkable. No lytic or blastic bony lesions are seen. [facility] Companion Lonnie Bermudez MD - 07/25/2022 Patient Name: CHANTAL LINARES : 1950 Exam Date/Time: 07/25/2022 09:57 Procedure: XR HIP 2 OR 3 VW LEFT Ordering Provider: GRAMAJO JACK Reason For Exam: hip pain LEFT HIP CLINICAL INDICATION: Left hip pain A single AP view of the pelvis followed by AP and lateral views of the left hip were obtained. COMPARISON: 09/13/2021 FINDINGS: No fracture or dislocation of the pelvis or left hip is identified. Mild loss of joint space and acetabular spurring is noted within the left and right hip joints. The sacroiliac joints appear grossly unremarkable. No lytic or blastic bony lesions are seen. IMPRESSION: No fracture or dislocation of the pelvis or left hip. Mild osteoarthritis of the bilateral hips. Report Dictated on Electronically Signed By: Lonnie Bermudez Electronically Signed Date/Time: 07/25/2022 11:24 AM EST [facility] Radiology Study observation (narrative) [facility] XR Hip - left 3 ViewsOrdered By: Lonnie Bermudez on 07-25-2022 [employer] Work Phone: AMB POC HEMOGLOBIN A1Con HbA1c (Bld) [Mass fraction] 5.9 % [facility] CT ABD/PEL W IVCONon 03-30- 022 CT ABD/PEL W IVCON * * *Final Report* * * DATE OF EXAM: Mar 30 2022 2:43PM [facility] 0530 - CT ABD/PEL W IVCON / PROCEDURE REASON: R10.12 LUQ pain, R10.11 RUQ pain, R19.7 Diarrhea * * * * Physician Interpretation * * * * EXAMINATION: CT ABDOMEN AND PELVIS WITH IV CONTRAST CLINICAL HISTORY: Left lower quadrant pain TECHNIQUE: CT of the abdomen and pelvis was performed using standard technique, scanning from just above the dome of the diaphragm to the symphysis pubis. MQ: CTAP_3 Contrast: IV: 100 ml of Omnipaque 350 Oral: 400 ml of Omni 240 10-25ml diluted with water CT Radiation dose: Integrated Dose-length product (DLP) for this visit = 641 mGy*cm. CT Dose Reduction Employed: mAs-kVp adjusted based on patient size-age COMPARISON: 07/20/2019 RESULT: Liver: Again seen are multiple hepatic lesions, consistent with multiple hemangiomata. Biliary: No bile duct dilation. Cholecystectomy Spleen: No mass. No splenomegaly. Pancreas: No mass or duct dilation. Adrenals: No mass. Kidneys: No suspicious mass or gross obstructive uropathy GI tract: No dilation or wall thickening. Diverticulosis without diverticulitis. Lymph nodes: No abdominal or pelvic lymphadenopathy. Mesentery/Peritoneum: No ascites or mass. Retroperitoneum: No mass. Vasculature: The aorta is normal in caliber Pelvis: No mass, ascites or fluid collection. Bones/Soft Tissues: No significant finding. Lower thorax: Emphysematous changes [employer] Quality Inspector (topogram) images: No additional findings. IMPRESSION: Multiple hepatic hemangiomata. No acute process in the abdomen or pelvis. Liaison Officer: RAMA Transcribe Date/Time: Apr 02 2022 1:17P Dictated by : TONE HOLLOWAY MD This examination was interpreted and the report reviewed and electronically signed by: TONE HOLLOWAY MD on Apr 02 2022 1:26PM EST [id number] Normal [facility] Hemoccult Stl Qlon Hemoglobin.gastrointes tinal Ql (Stl) Negative Normal [facility] Comment on above: Performed By: #### 2 335-8 #### [facility] CLIA [id number] [address] [place] [address] [place] C diff Tox gens Stl Ql KARIN+p robeon 03-26-2022 C. difficile toxin genes KARIN+probe Ql (Stl) Negative Normal Negative for C. difficile toxin by PCR [facility] Comment on above: Order Comment: Speci men Type: STOOL SPECIMEN Ordering Facility: [facility] Address: [address] [place] [address] Performed By: #### 5 4067-4 #### [facility] CLIA [id number] [address] [place] [address] [place] FECAL LACTOFERRIN/LEUKOCYTES on 03-26-2022 Lactoferrin IA Ql (Stl) Positive for lactoferrin, which may indicate presence of fecal white blood cells Abnormal Negative [facility] Comment on above: Order Comment: Speci men Type: STOOL SPECIMEN Ordering Facility: [facility] Address: [address] [place] [address] Performed By: #### F ECWBC #### [facility] CLIA [id number] [address] [place] [address] [place] G lamblia+Cryptosp Ag Stl Ql IAon 03-26-2022 G. lamblia+Cryptosporidiu m sp Ag IA Ql (Stl) CRYPTOSPORIDIUM ANTIGEN BY EIA: Negative for Cryptosporidium by EIA. GIARDIA ANTIGEN BY EIA: Negative for Giardia lamblia by EIA. Normal [facility] Comment on above: Performed By: #### 4 8059-0 #### [facility] CLIA [id number] [address] [place] [address] [place] Gastrointestinal pathogens i dentified KARIN+probe Nom (Stl)on 03-26-2022 Campylobacter sp DNA KARIN+probe Nom (Unsp spec) Not detected Normal Not Detected [facility] Comment on above: Order Comment: Speci men Type: STOOL SPECIMEN Ordering Facility: [facility] Address: [address] [place] [address] Performed By: #### 7 9390-1 #### [facility] CLIA [id number] [address] [place] [address] [place] Salmonella sp DNA KARIN+probe Ql (Unsp spec) Not detected Normal Not Detected [facility] Comment on above: Order Comment: Speci men Type: STOOL SPECIMEN Ordering Facility: [facility] Address: [address] [place] [address] Performed By: #### 7 9390-1 #### [facility] CLIA [id number] [address] [place] [address] [place] Shiga toxin stx gene KARIN+probe Nom (Unsp spec) Not detected Normal Not Detected [facility] Comment on above: Order Comment: Speci men Type: STOOL SPECIMEN Ordering Facility: [facility] Address: [address] [place] [address] Performed By: #### 7 9390-1 #### [facility] CLIA [id number] [address] [place] [address] [place] Shigella sp DNA KARIN+probe Ql (Unsp spec) Not detected Normal Not Detected [facility] Comment on above: Order Comment: Speci men Type: STOOL SPECIMEN Ordering Facility: [facility] Address: [address] [place] [address] Performed By: #### 7 9390-1 #### [facility] CLIA [id number] [address] [place] [address] [place] OCCULT BLD EXAM-DIAGon 03-26 OCCULT BLD EXAM-DIAG Negative Normal [facility] Comment on above: Performed By: #### O BDX #### [facility] CLIA [id number] [address] [place] CBC W Auto Differential pane l (Bld)on 03-24-2022 Basophils (Bld) [#/Vol] 10*3/uL Normal <0.11 [facility] Comment on above: Order Comment: Speci men Type: BLOOD SPECIMEN Ordering Facility: [facility] [place] Address: [address] [place] [address] Performed By: #### 5 7021-8 #### [facility] CLIA [id number] [address] [place] Basophils/100 WBC (Bld) 0.4 % Normal [facility] Comment on above: Order Comment: Speci men Type: BLOOD SPECIMEN Ordering Facility: [facility] [place] Address: [address] [place] [address] Performed By: #### 5 7021-8 #### [facility] CLIA [id number] [address] [place] Differential cell count method Nom (Bld) Auto Normal [facility] Comment on above: Order Comment: Speci men Type: BLOOD SPECIMEN Ordering Facility: [facility] [place] Address: [address] [place] [address] Performed By: #### 5 7021-8 #### [facility] CLIA [id number] [address] [place] [address] [place] Eosinophils (Bld) [#/Vol] 0.03 10*3/uL Normal <0.46 [facility] Comment on above: Order Comment: Speci men Type: BLOOD SPECIMEN [facility] Address: [address] [place] [address] Performed By: #### 5 7021-8 #### [facility] CLIA [id number] [address] [place] [address] [place] Eosinophils/100 WBC (Bld) 0.5 % Normal [facility] Comment on above: Order Comment: Speci men Type: BLOOD SPECIMEN [facility] Address: [address] [place] [address] Performed By: #### 5 7021-8 #### [facility] CLIA [id number] [address] [place] [address] [place] Erythrocyte distribution width (RBC) [Ratio] 13.9 % Normal 11.5-15.0 [facility] Comment on above: Order Comment: Speci men Type: BLOOD SPECIMEN [facility] Address: [address] [place] [address] Performed By: #### 5 7021-8 #### [facility] CLIA [id number] [address] [place] [address] [place] Hematocrit (Bld) [Volume fraction] 42.0 % Normal 36.0-46.0 [facility] Comment on above: Order Comment: Speci men Type: BLOOD SPECIMEN [facility] Address: [address] [place] [address] Performed By: #### 5 7021-8 #### [facility] CLIA [id number] [address] [place] [address] [place] Hemoglobin (Bld) [Mass/Vol] 13.3 g/dL Normal 11.5-15.5 [facility] Comment on above: Order Comment: Speci men Type: BLOOD SPECIMEN Ordering Facility: [facility] [place] Address: [address] [place] [address] Performed By: #### 5 7021-8 #### [facility] CLIA [id number] [address] [place] [address] [place] Immature granulocytes (Bld) [#/Vol] 10*3/uL Normal <0.10 [facility] Comment on above: Order Comment: Speci men Type: BLOOD SPECIMEN Ordering Facility: [facility] [place] Address: [address] [place] [address] Performed By: #### 5 7021-8 #### [facility] CLIA [id number] [address] Immature granulocytes/100 WBC (Bld) 0.2 % Normal [facility] Comment on above: Order Comment: Speci men Type: BLOOD SPECIMEN [facility]ing Facility[facility] Address: [address] [place] [address] Performed By: #### 5 7021-8 #### [facility] CLIA [id number] [address] [place] [address] [place] Lymphocytes (Bld) [#/Vol] 1.86 10*3/uL Normal 1.00-4.00 [facility] Comment on above: Order Comment: Speci men Type: BLOOD SPECIMEN [facility] [facility] Address: [address] [place] [address] Performed By: #### 5 7021-8 #### [facility] CLIA [id number] [address] [place] [address] [place] Lymphocytes/100 WBC (Bld) 32.6 % Normal [facility] Comment on above: Order Comment: Speci men Type: BLOOD SPECIMEN [facility] Address: [address] [place] [address] Performed By: #### 5 7021-8 #### [facility] CLIA [id number] [address] [place] [address] [place] MCH (RBC) [Entitic mass] 30.3 pg Normal 26.0-34.0 [facility] Comment on above: Order Comment: Speci men Type: BLOOD SPECIMEN Ordering Facility: [facility] Address: [address] [place] [address] Performed By: #### 5 7021-8 #### [facility] CLIA [id number] [address] STATES [facility] MCHC (RBC) [Mass/Vol] 31.7 g/dL Normal 30.5-36.0 [facility] Comment on above: Order Comment: Speci men Type: BLOOD SPECIMEN Ordering Facility: [facility] Address: [address] [place] [address] Performed By: #### 5 7021-8 #### [facility] CLIA [id number] [address] STATES [facility] MCV (RBC) [Entitic vol] 95.7 fL Normal 80.0-100.0 [facility] Comment on above: Order Comment: Speci men Type: BLOOD SPECIMEN [facility] [place] Address: [address] [place] [address] Performed By: #### 5 7021-8 #### [facility] CLIA [id number] [address] [place] [address] [place] Monocytes (Bld) [#/Vol] 0.50 10*3/uL Normal <0.87 [facility] Comment on above: Order Comment: Speci men Type: BLOOD SPECIMEN [facility]ing Facility: [facility] [place] Address: [address] [place] [address] Performed By: #### 5 7021-8 #### [facility] CLIA [id number] [address] Monocytes/100 WBC (Bld) 8.8 % Normal [facility] Comment on above: Order Comment: Speci [facility] Type: BLOOD SPECIMEN [facility] [place] Address: [address] [place] [address] Performed By: #### 5 7021-8 #### [facility] CLIA [id number] [address] [place] [address] [place] Neutrophils (Bld) [#/Vol] 3.28 10*3/uL Normal 1.45-7.50 [facility] Comment on above: Order Comment: Speci men Type: BLOOD SPECIMEN [facility] Address: [address] [place] [address] Performed By: #### 5 7021-8 #### [facility] CLIA [id number] [address] [place] Neutrophils/100 WBC (Bld) 57.5 % Normal [facility] Comment on above: Order Comment: Speci men Type: BLOOD SPECIMEN Ordering Facility: [facility] [place] Address: [address] [place] [address] Performed By: #### 5 7021-8 #### [facility] CLIA [id number] [address] [place] [address] [place] Nucleated RBC (Bld) [#/Vol] 10*3/uL Normal <0.01 [facility] Comment on above: Order Comment: Tdodi mona Type: BLOOD SPECIMEN [facility] Address: [address] [place] [address] Performed By: #### 5 7021-8 #### [facility] CLIA [id number] [address] [place] [address] [place] Nucleated RBC/100 WBC (Bld) [Ratio] 0.0 /100 WBC Normal [facility] Comment on above: Order Comment: Toddi mona Type: BLOOD SPECIMEN [facility] Address: [address] [place] [address] Performed By: #### 5 7021-8 #### [facility] CLIA [id number] [address] [place] [address] [place] Platelet mean volume (Bld) [Entitic vol] 9.3 fL Normal 9.0-12.7 [facility] Comment on above: Order Comment: Isidra [facility] Type: BLOOD SPECIMEN [facility] Address: [address] [place] [address] Performed By: #### 5 7021-8 #### [facility] CLIA [id number] [address] [place] [address] [place] Platelets (Bld) [#/Vol] 346 10*3/uL Normal 150-400 [facility] Comment on above: Order Comment: Speci men Type: BLOOD SPECIMEN Ordering Facility: [facility] [place] Address: [address] [place] [address] Performed By: #### 5 7021-8 #### [facility] CLIA [id number] [address] [place], [place] [address] [place] [address] [place] RBC (Bld) [#/Vol] 4.39 10*6/uL Normal 3.90-5.20 [facility] Comment on above: Order Comment: Speci men Type: BLOOD SPECIMEN Ordering Facility: [facility] [place] Address: [address] [place] [address] Performed By: #### 5 7021-8 #### [facility] CLIA [id number] [address] WBC (Bld) [#/Vol] 5.70 10*3/uL Normal 3.70-11.00 [facility] Comment on above: Order Comment: Speci men Type: BLOOD SPECIMEN Ordering Facility: [facility] [place] Address: [address] [place] [address] Performed By: #### 5 7021-8 #### [facility] CLIA [id number] [address] [place] [address] [place] [facility] [place] Comprehensive metabolic 2000 panelon 03-24-2022 Albumin [Mass/Vol] 4.4 g/dL Normal 3.9-4.9 [facility] Comment on above: Order Comment: Speci men Type: BLOOD SPECIMEN Ordering Facility: [facility] [place] Address: [address] [place] [address] Performed By: #### 2 4323-8, 3040-3 #### [facility] CLIA [id number] [address] ALP [Catalytic activity/Vol] 70 U/L Normal 34-123 [facility] Comment on above: Order Comment: Speci men Type: BLOOD SPECIMEN Ordering Facility: [facility] [place] Address: [address] [place] [address] Performed By: #### 2 4323-8, 3040-3 #### [facility] CLIA [id number] [address] [place] [address] [place] ALT [Catalytic activity/Vol] 12 U/L Normal 7-38 [facility] Comment on above: Order Comment: Speci men Type: BLOOD SPECIMEN [facility] [place] Address: [address] [place] [address] Performed By: #### 2 4323-8, 3040-3 #### [facility] CLIA [id number] [address] [place] [address] [place] Anion gap [Moles/Vol] 8 mmol/L Low 9-18 [facility] Comment on above: Order Comment: Speci men Type: BLOOD SPECIMEN [facility] [place] Address: [address] [place] [address] Performed By: #### 2 8, 0-3 #### [facility] CLIA [id number] [address] [place] [address] [place] AST [Catalytic activity/Vol] 15 U/L Normal 13-35 [facility] Comment on above: Order Comment: Speci men Type: BLOOD SPECIMEN [facility] [place] Address: [address] [place] [address] Performed By: #### 2 4328, 0-3 #### [facility] CLIA [id number] [address] [place] [address] [place] Bilirubin [Mass/Vol] 0.3 mg/dL Normal 0.2-1.3 [facility] Comment on above: Order Comment: Speci men Type: BLOOD SPECIMEN Ordering Facility: [facility] Address: [address] [place] [address] Performed By: #### 2 4323-8, 3040-3 #### [facility] CLIA [id number] [address] [place] Calcium [Mass/Vol] 9.7 mg/dL Normal 8.5-10.2 [facility] Comment on above: Order Comment: Speci men Type: BLOOD SPECIMEN Ordering Facility: [facility] [place] Address: [address] [place] [address] Performed By: #### 2 4323-8, 3040-3 #### [facility] CLIA [id number] [address] [place] [address] [place] Chloride [Moles/Vol] 101 mmol/L Normal 97-105 [facility] Comment on above: Order Comment: Spechalina men Type: BLOOD SPECIMEN Ordering Facility: [facility] Address: [address] [place] [address] Performed By: #### 2 4323-8, 0-3 #### [facility] CLIA [id number] [address] [place] [address] [place] CO2 [Moles/Vol] 30 mmol/L Normal 22-30 [facility] Comment on above: Order Comment: Isidra [facility] Type: BLOOD SPECIMEN Ordering Facility: [facility] Address: [address] [place] [address] Performed By: #### 2 43238, 3039-3 #### [facility] CLIA [id number] [address] [place] [address] [place] Creatinine [Mass/Vol] 0.53 mg/dL Low 0.58-0.96 [facility] Comment on above: Order Comment: Spechalina [facility] Type: BLOOD SPECIMEN Ordering Facility: [facility] Address: [address] [place] [address] Performed By: #### 2 43238, 3 #### [facility] CLIA [id number] [address] [place] ESTIMATED GLOMERULAR FILTRATION RATE 98 mL/min/1.73m??? Normal >=60 [facility] Comment on above: Order Comment: Isidra [facility] Type: BLOOD SPECIMEN Ordering Facility: [facility] Address: [address] [place] [address] Result Comment: Ashley mated Glomerular Filtration Rate (eGFR) is calculated using the 2020 CKD-EPI creatinine equation. This equation utilizes serum creatinine, sex, and age as parameters. The creatinine assay has traceable calibration to isotope dilution-mass spectrometry. Refer to KDIGO guidelines for clinical interpretation. In patients with unstable renal function, e.g. those with acute kidney injury, the eGFR may not accurately reflect actual GFR. Performed By: #### 2 4323-8, 3040-3 #### [facility] CLIA [id number] [address] [place] [address] [place] Glucose [Mass/Vol] 99 mg/dL Normal 74-99 [facility] Comment on above: Order Comment: Isidra dunn Type: BLOOD SPECIMEN [facility] [place] Address: [address] [place] [address] Result Comment: The Stateless Diabetes Association (ADA) provides guidance for cutoff values for fasting glucose and random glucose. The ADA defines fasting as no caloric intake for at least 8 hours. Fasting plasma glucose results between 100 to 125 mg/dL indicate increased risk for diabetes (prediabetes). Fasting plasma glucose results greater than or equal to 126 mg/dL meet the criteria for diagnosis of diabetes. In the absence of unequivocal hyperglycemia, results should be confirmed by repeat testing. In a patient with classic symptoms of hyperglycemia or hyperglycemic crisis, random plasma glucose results greater than or equal to 200 mg/dL meet the criteria for diagnosis of diabetes. Reference: Standards of Medical Care in Diabetes 2016, Stateless Diabetes Association. Diabetes Care. 2016.39(Suppl 1). Performed By: #### 2 43208-08, 3 #### [facility] CLIA [id number] [address] [place] [address] [place] Potassium [Moles/Vol] 4.6 mmol/L Normal 3.7-5.1 [facility] Comment on above: Order Comment: Isidra dunn Type: BLOOD SPECIMEN [facility] [place] Address: [address] [place] [address] Performed By: #### 2 43208-08, 3 #### [facility] CLIA [id number] [address] [place] [address] [place] Protein [Mass/Vol] 6.8 g/dL Normal 6.3-8.0 [facility] Comment on above: Order Comment: Isidra dunn Type: BLOOD SPECIMEN [facility] [place] Address: [address] [place] [address] Performed By: #### 2 43238, 3 #### [facility] CLIA [id number] [address] [place] [address] [place] Sodium [Moles/Vol] 139 mmol/L Normal 136-144 [facility] Comment on above: Order Comment: Isidra dunn Type: BLOOD SPECIMEN Ordering Facility: [facility] Address: [address] [place] [address] Performed By: #### 2 4323-8, 3040-3 #### [facility] CLIA [id number] [address] [place] [address] [place] Urea nitrogen [Mass/Vol] 12 mg/dL Normal 7-21 [facility] Comment on above: Order Comment: Toddi men Type: BLOOD SPECIMEN Ordering Facility: [facility] Address: [address] [place] [address] Performed By: #### 2 4323-8, 3040-3 #### [facility] CLIA [id number] [address] [place] [address] [place] Lipase SerPl-cCncon 03-24-20 22 Lipase [Catalytic activity/Vol] 25 U/L Normal 16-61 [facility] Comment on above: Order Comment: Isidra [facility] Type: BLOOD SPECIMEN [facility] [place] Address: [address] [place] [address] Performed By: #### 2 4323-8, 3040-3 #### [facility] CLIA [id number] [address] [place] [address] [place] CR Ankle 3+ Views Righton CR Ankle 3+ Views Right Patient Name: CHANTAL LINARES Diagnostic Radiology ACCESSION EXAM DATE/TIME PROCEDURE ORDERING PROVIDER [id number] 02/19/2022 10:40 EDT CR Ankle 3+ Views Right MD JOAN, JAKE SMITH CPT code 12510 Reason For Exam (CR Ankle 3+ Views Right) PAIN Report INDICATION: 71-year-old; ankle pain present one year. VIEWS: Right ankle AP, oblique, lateral COMPARISON: 11/11/2019 FINDINGS: The ankle mortise is intact. The talar dome is smooth. The distal tibia and fibula are intact. No significant soft tissue swelling. Calcaneus contour is smooth. The base of fifth metatarsal is intact. IMPRESSION: There is no osseous finding to explain the patient's right ankle pain. Report Dictated on Final Dictated: 02/19/2022 11:56 am Dictating Physician: MD BAXTER JENNIFER R Signed Date and Time: 02/19/2022 11:58 am Signed by: MD BAXTER JENNIFER R Transcribed Date and Time: 02/19/2022 11:56 [facility] XR ANKLE RIGHT (MIN 3 VIEWS) on 02-19-2022 Patient Name: CHANTAL ROGERS Diagnostic Radiology ACCESSION EXAM DATE/TIME PROCEDURE ORDERING PROVIDER [id number] 02/19/2022 10:40 EDT CR Ankle 3+ Views Right MD FRANCO MARK ANTHONY CPT code 75553 Reason For Exam (CR Ankle 3+ Views Right) PAIN Report INDICATION: 71-year-old; ankle pain present one year. VIEWS: Right ankle AP, oblique, lateral COMPARISON: 11/11/2019 FINDINGS: The ankle mortise is intact. The talar dome is smooth. The distal tibia and fibula are intact. No significant soft tissue swelling. Calcaneus contour is smooth. The base of fifth metatarsal is intact. IMPRESSION: There is no osseous finding to explain the patient's right ankle pain. Report Dictated on --- Final --- Dictated: 02/19/2022 11:56 am Dictating Physician: MD BAXTER JENNIFER R Signed Date and Time: 02/19/2022 11:58 am Signed by: MD BAXTER JENNIFER R Transcribed Date and Time: 02/19/2022 11:56 [facility] Tatiana Baxter MD - 02/19/2022 Patient Name: CHANTAL LINARES Diagnostic Radiology ACCESSION EXAM DATE/TIME PROCEDURE ORDERING PROVIDER [id number] 02/19/2022 10:40 EDT CR Ankle 3+ Views Right MD FRANCO MARK ANTHONY CPT code 31357 Reason For Exam (CR Ankle 3+ Views Right) PAIN Report INDICATION: 71-year-old; ankle pain present one year. VIEWS: Right ankle AP, oblique, lateral COMPARISON: 11/11/2019 FINDINGS: The ankle mortise is intact. The talar dome is smooth. The distal tibia and fibula are intact. No significant soft tissue swelling. Calcaneus contour is smooth. The base of fifth metatarsal is intact. IMPRESSION: There is no osseous finding to explain the patient's right ankle pain. Report Dictated on --- Final --- Dictated: 02/19/2022 11:56 am Dictating Physician: MD BAXTER JENNIFER R Signed Date and Time: 02/19/2022 11:58 am Signed by: MD BAXTER JENNIFER R Transcribed Date and Time: 02/19/2022 11:56 [facility] Work Phone: Radiology Study observation (narrative) [facility] Work Phone: XR ANKLE RIGHT (MIN 3 VIEWS) Ordered By: Tatiana Baxter on 02-19-2022 [facility] Work Phone: CT Abdomen Pelvis Wo Contras ton 12-06-2021 Patient Name: CHANTAL ROGERS Computed Tomography ACCESSION EXAM DATE/TIME PROCEDURE ORDERING PROVIDER [id number] 12/06/2021 13:[address] Abdomen/Pelvis ([place] [id number] -REYES, PO, No IV) AKOSUA CPT code 17311 Reason For Exam (CT Abdomen/Pelvis (No PO, No IV)) generalized abdomen pain Report CT abdomen and pelvis without contrast HISTORY: Pain Protocol: 3 mm axial images without intravenous contrast COMPARISON: Ultrasound 06/27/2021 Again seen are multiple large hepatic hemangiomas. The spleen, pancreas, adrenals, and kidneys are normal. The gallbladder has been removed. No bowel inflammation or bowel obstruction. Sigmoid diverticulosis. No free fluid. Bladder is unremarkable. IMPRESSION: Again seen are multiple large hepatic hemangiomas. Sigmoid diverticulosis. Report Dictated on --- Final --- Dictated: 12/06/2021 3:54 pm Dictating Physician: MD WALLACE MALAY Signed Date and Time: 12/06/2021 3:55 pm Signed by: MD WALLACE MALAY Transcribed Date and Time: 12/06/2021 3:54 [facility] Jeyson Wallace MD - 12/06/2021 Patient Name: CHANTAL LINARES Computed Tomography ACCESSION EXAM DATE/TIME PROCEDURE ORDERING PROVIDER [id number] 12/06/2021 13:[address] Abdomen/Pelvis (No [id number] -REYES, PO, No IV) AKOSUA CPT code 31641 Reason For Exam (CT Abdomen/Pelvis (No PO, No IV)) generalized abdomen pain Report CT abdomen and pelvis without contrast HISTORY: Pain Protocol: 3 mm axial images without intravenous contrast COMPARISON: Ultrasound 06/27/2021 Again seen are multiple large hepatic hemangiomas. The spleen, pancreas, adrenals, and kidneys are normal. The gallbladder has been removed. No bowel inflammation or bowel obstruction. Sigmoid diverticulosis. No free fluid. Bladder is unremarkable. IMPRESSION: Again seen are multiple large hepatic hemangiomas. Sigmoid diverticulosis. Report Dictated on --- Final --- Dictated: 12/06/2021 3:54 pm Dictating Physician: MD WALLACE MALAY Signed Date and Time: 12/06/2021 3:55 pm Signed by: MD WALLACE MALAY Transcribed Date and Time: 12/06/2021 3:54 [facility] Work [facility]: Radiology Study observation (narrative) [facility] Work Phone: CT Abdomen Pelvis Wo Contras tOrdered By: Jeyson Wallace on 12-06-2021 [facility] Work Phone: CT Abdomen/Pelvis w/o Contra ston 12-06-2021 CT Abdomen/Pelvis w/o Contrast Patient Name: CHANTAL LINARES Computed Tomography ACCESSION EXAM DATE/TIME PROCEDURE ORDERING PROVIDER [id number] 12/06/2021 13:[address] Abdomen/Pelvis (No [id number] -REYES, PO, No IV) AKOSUA CPT code 01155 Reason For Exam (CT Abdomen/Pelvis (No PO, No IV)) generalized abdomen pain Report CT abdomen and pelvis without contrast HISTORY: Pain Protocol: 3 mm axial images without intravenous contrast COMPARISON: Ultrasound 06/27/2021 Again seen are multiple large hepatic hemangiomas. The spleen, pancreas, adrenals, and kidneys are normal. The gallbladder has been removed. No bowel inflammation or bowel obstruction. Sigmoid diverticulosis. No free fluid. Bladder is unremarkable. IMPRESSION: Again seen are multiple large hepatic hemangiomas. Sigmoid diverticulosis. Report Dictated on Final Dictated: 12/06/2021 3:54 pm Dictating Physician: MD WALLACE MALAY Signed Date and Time: 12/06/2021 3:55 pm Signed by: MD WALLACE MALAY Transcribed Date and Time: 12/06/2021 3:54 Normal [facility] CR Hip w/ Pelvis 2 or 3 View s Lefton 09-13-2021 CR Hip w/ Pelvis 2 or 3 Views Left Patient Name: CHANTAL LINARES Diagnostic Radiology ACCESSION EXAM DATE/TIME PROCEDURE ORDERING PROVIDER [id number] 09/13/2021 13:03 EDT CR Hip w/ Pelvis 2 or 3 [id number] -CORNELIO GRAMAJO Views Left n CPT code 28356 Reason For Exam (CR Hip w/ Pelvis 2 or 3 Views Left n) hip pain Report CLINICAL INDICATION: Left hip pain A single AP view of the pelvis followed by AP and lateral views of the left hip were obtained. COMPARISON: None FINDINGS: No fracture or dislocation of the pelvis or left hip is identified. Mild loss of joint space and acetabular spurring is noted within the left and right hip joints. The sacroiliac joints appear grossly unremarkable. No lytic or blastic bony lesions are seen. IMPRESSION: Mild osteoarthritic degenerative changes. Report Dictated on Final Dictated: 09/13/2021 2:00 pm Dictating Physician: MD NOYOLA LAURA Signed Date and Time: 09/13/2021 2:00 pm Signed by: MD NOYOLA LAURA Transcribed Date and Time: 09/13/2021 2:00 [facility] XR HIP LEFT (2-3 VIEWS)on Patient Name: CHANTAL ROGERS Diagnostic Radiology ACCESSION EXAM DATE/TIME PROCEDURE ORDERING PROVIDER [id number] 09/13/2021 13:03 EDT CR Hip w/ Pelvis 2 or 3 [id number] -BONFIGLIO, CORNELIO Views Left n CPT code 97931 Reason For Exam (CR Hip w/ Pelvis 2 or 3 Views Left n) hip pain Report CLINICAL INDICATION: Left hip pain A single AP view of the pelvis followed by AP and lateral views of the left hip were obtained. COMPARISON: None FINDINGS: No fracture or dislocation of the pelvis or left hip is identified. Mild loss of joint space and acetabular spurring is noted within the left and right hip joints. The sacroiliac joints appear grossly unremarkable. No lytic or blastic bony lesions are seen. IMPRESSION: Mild osteoarthritic degenerative changes. Report Dictated on --- Final --- Dictated: 09/13/2021 2:00 pm Dictating Physician: MD NOYOLA LAURA Signed Date and Time: 09/13/2021 2:00 pm Signed by: MD NOYOLA LAURA Transcribed Date and Time: 09/13/2021 2:00 [facility] Tessie Noyola MD - 09/13/2021 Patient Name: CHANTAL LINARES Diagnostic Radiology ACCESSION EXAM DATE/TIME PROCEDURE ORDERING PROVIDER [id number] 09/13/2021 13:03 EDT CR Hip w/ Pelvis 2 or 3 [id number] -BONFIGLIO, CORNELIO Views Left n CPT code 93710 Reason For Exam (CR Hip w/ Pelvis 2 or 3 Views Left n) hip pain Report CLINICAL INDICATION: Left hip pain A single AP view of the pelvis followed by AP and lateral views of the left hip were obtained. COMPARISON: None FINDINGS: No fracture or dislocation of the pelvis or left hip is identified. Mild loss of joint space and acetabular spurring is noted within the left and right hip joints. The sacroiliac joints appear grossly unremarkable. No lytic or blastic bony lesions are seen. IMPRESSION: Mild osteoarthritic degenerative changes. Report Dictated on --- Final --- Dictated: 09/13/2021 2:00 pm Dictating Physician: MD NOYOLA LAURA Signed Date and Time: 09/13/2021 2:00 pm Signed by: MD NOYOLA LAURA Transcribed Date and Time: 09/13/2021 2:00 [facility] Work Phone: Radiology Study observation (narrative) [facility] Work Phone: XR HIP LEFT (2-3 VIEWS)Order ed By: Tessie Noyola on 09-13-2021 [facility] Work Phone: MG Breast Tomosynthesis Diag nostic BIon 08-24-2021 MG Breast Tomosynthesis Diagnostic BI Patient Name: CHANTAL LINARES Mammography ACCESSION EXAM DATE/TIME PROCEDURE ORDERING PROVIDER [id number] 08/24/2021 15:01 EDT MG Breast Tomosynthesis PASCALE HAJIEN BI CPT code 73130 61427 Reason For Exam (MG Breast Tomosynthesis BI) axillary lump, right R22.31 Report TIME SINCE LAST MAMMOGRAM: Last mammogram was performed 1 year and 1 month ago. REASON FOR EXAM: clinical finding. INDICATED PROBLEM: Indicated problem(s): right breast palpable abnormality. PROCEDURE: MG BREAST TOMOSYNTHESIS BL: AUGUST 24, 2021 - 2D/3D Procedure 3D Bilateral CC and MLO view(s) were taken. 2D Bilateral CC and MLO view(s) were taken. Prior study comparison: August 05, 2020, bilateral MG breast tomosynthesis bl scr performed at [facility]. March 30, 2019, bilateral MG breast tomosynthesis bl scr performed at [facility]. October 24, 2016, bilateral MG breast tomosynthesis bl scr performed at [facility]. TISSUE DENSITY: BIRADS B - There are scattered fibroglandular densities. . FINDINGS: 71-year-old presenting for evaluation of two left axillary lumps. Mammogram: No new suspicious masses, architectural distortions, or suspiciously clustered macro calcifications are seen in the right or left breast. There has been no significant interval change from prior studies. The right axillary region of concern was further evaluated with ultrasound. Right axillary ultrasound: Targeted scanning at the site of concern demonstrated no mass or other abnormality. IMPRESSION: No mammographic or targeted sonographic evidence of malignancy. Markings on images: BB's = Nipples; skin lesions Open hopland = Palpable Line = Scar Mammography Report US BREAST LIMITED RIGHT: AUGUST 24, 2021 - 2D digital mammography and tomosynthesis imaging were performed and reviewed with CAD. ASSESSMENT: Category 1 Negative (Overall) RECOMMENDATION: Routine screening mammogram of both breasts in 1 year. . Report Dictated on Final Signed Date and Time: 08/24/2021 3:22 pm Signed by: MD DICK KERISTEN L 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 PATIENT CANCER HISTORY: No Personal History of Cancer FAMILY CANCER HISTORY: Mother Ovarian Cancer age 79 Maternal Aunt Breast Cancer age 58 Lifetime breast cancer risk: Average Risk - If greater than or equal to 20%, consider annual mammogram and annual screening Breast MRI or follow up in high risk clinic. A score of "Average Risk" indicates a score of less than 20%. Is the patient at elevated risk based on the HBOC criteria? Yes (Hereditary Breast and Ovarian Cancer) - If yes, consider genetic counseling and testing with high risk follow up. Is the patient at elevated risk based on the Borrero Syndrome criteria? No - If yes, consider genetic counseling and testing with high risk follow up. Report Dictated on Final Dictated: 08/24/2021 2:52 pm Dictating Physician: MD DICK KERISTEN L Signed Date and Time: 08/24/2021 2:52 pm Signed by: MD DICK KERISTEN L Normal [facility] US Breast Limited Righton US Breast Limited Right Patient Name: CHANTAL LINARES Ultrasound ACCESSION EXAM DATE/TIME PROCEDURE ORDERING PROVIDER [id number] 08/24/2021 15:23 EDT US Breast Limited Right CHELI HAJI CPT code 54574 Reason For Exam (US Breast Limited Right) right axillary lump Report TIME SINCE LAST MAMMOGRAM: Last mammogram was performed 1 year and 1 month ago. REASON FOR EXAM: clinical finding. INDICATED PROBLEM: Indicated problem(s): right breast palpable abnormality. PROCEDURE: MG BREAST TOMOSYNTHESIS BL: AUGUST 24, 2021 - 2D/3D Procedure 3D Bilateral CC and MLO view(s) were taken. 2D Bilateral CC and MLO view(s) were taken. Prior study comparison: August 05, 2020, bilateral MG breast tomosynthesis bl scr performed at [facility]. March 30, 2019, bilateral MG breast tomosynthesis bl scr performed at [facility]. October 24, 2016, bilateral MG breast tomosynthesis bl scr performed at [facility]. TISSUE DENSITY: BIRADS B - There are scattered fibroglandular densities. . FINDINGS: 71-year-old presenting for evaluation of two left axillary lumps. Mammogram: No new suspicious masses, architectural distortions, or suspiciously clustered macro calcifications are seen in the right or left breast. There has been no significant interval change from prior studies. The right axillary region of concern was further evaluated with ultrasound. Right axillary ultrasound: Targeted scanning at the site of concern demonstrated no mass or other abnormality. IMPRESSION: No mammographic or targeted sonographic evidence of malignancy. Markings on images: BB's = Nipples; skin lesions Open hopland = Palpable Line = Scar US BREAST LIMITED RIGHT: AUGUST 24, 2021 - Ultrasound Report 2D digital mammography and tomosynthesis imaging were performed and reviewed with CAD. ASSESSMENT: Category 1 Negative (Overall) RECOMMENDATION: Routine screening mammogram of both breasts in 1 year. . Report Dictated on Final Signed Date and Time: 08/24/2021 3:22 pm Signed by: MD DICK KERISTEN L [facility] US Abdomen Limitedon 022 US Abdomen Limited Patient Name: CHANTAL ROGERS Ultrasound ACCESSION EXAM DATE/TIME PROCEDURE ORDERING PROVIDER [id number] 06/27/2021 14:53 EST US Abdomen Limited MD JANICE, FLYNN Contreras CPT code 55625 Reason For Exam (US Abdomen Limited) r93.3 Report Exam type: Ultrasound abdomen RUQ CLINICAL HISTORY:Follow-up abnormal CT scan, history of multiple hemangiomas and possible abnormal pancreatic tail COMPARISON: None Technique: Grayscale sonographic images were obtained of the right upper quadrant. Color Doppler was utilized. FINDINGS: Liver: Multiple hyperechoic masses are seen throughout the liver measuring up to 6.7 x 5.9 x 5.8 cm. A vague hypoechoic structure is seen within the left hepatic lobe anteriorly measuring 2.2 x 3.8 x 1.8 cm. No intra or extrahepatic biliary ductal dilatation is identified. The common bile duct is appropriate in size for the patient's age and measures seven mm in diameter. Gallbladder: Surgically removed Right Kidney: The right kidney is normal in contour, echogenicity, and size with no hydronephrosis or shadowing renal calculi. Overall, the right kidney measures 10.6 cm in length. Additional structures: Pancreatic head, neck and body are normal in appearance. The pancreatic tail is poorly visualized due to overlying bowel gas. IMPRESSION: 1. Several hyperechoic masses are seen throughout the liver measuring up to 6.7 cm, nonspecific but likely related to known history of hemangiomas. 2. A 3.8 cm hypoechoic structure is seen within the left hepatic lobe anteriorly, nonspecific and atypical in appearance for a hemangioma. Multi phase contrast-enhanced CT or MRI may be helpful for further evaluation. 3. Pancreatic tail is poorly visualized due to overlying bowel gas. Otherwise normal appearance of the pancreas. Ultrasound Report Report Dictated on Workstation: [id number] Final Dictated: 06/27/2021 12:00 pm Dictating Physician: MD QUIROZ JAMES Signed Date and Time: 06/27/2021 12:05 pm Signed by: MD QUIROZ JAMES Transcribed Date and Time: 06/27/2021 12:00 Normal [facility] Office-Progress Notes-Pr ovideron 02-24-2021 Amb Office-Progress Notes-Provider Assessment/Plan Atrophic vaginitis N95.2 Breast cancer screening by mammogram Z12.31 Ordered: MAMM DIGITAL SCRN BILATERAL, 02/24/2021, Routine, SCREENING, Breast cancer screening by mammogram Encounter for well woman exam Z01.419 Orders: Premarin 0.625 mg/g vaginal cream with applicator, 1 g, Vaginal, M,Th, 1 g Vaginal QHS 2-3 nights weekly, 45 g, Date: 02/24/2021 14:10:00 EDT, [facility], 1 g Vaginal M,Th,Instr:1 g Vaginal QHS 2-3 nights weekly Chief Complaint Here for an annual exam - Hyst, vaginal dryness and painful intercourse Mammo - 10/24/16, Diag 11/15/16 Left swollen lymph node Dexa Scan - 06/02/12 Osteopenia History of Present Illness Had mammogram last year. just complaining of dryness with intercourse. Review of Systems Cardiology: No chest pain Dermatology: No acne Endocrinology: No cold intolerance, no hair changes ENT: No ear pain Female reproductive: see HPI Gastroenterology: No incontinence of stool Hematology: No easy bruising Musculoskeletal: No joint pain Neurology: No fainting Ophthalmology: No blurred vision Psychology: No anxiety Physical Exam Vitals & Measurements BP: 130/80 HT: 170 cm WT: 74.8 kg BMI: 25.88 Depression Screening Scores No Depression Screening data available for this encounter. Fall Risk Assessment Is the patient ambulatory (mobile): Yes (02/24/21 13:16:00) Have you had a fall within the past: No (02/24/21 13:16:00) Have you had 2 or more falls in the past: No (02/24/21 13:16:00) The vital signs were reviewed and are normal. General appearance: well developed and well nourished Lungs: Normal respiratory effort, clear to auscultation Extremities: No edema or clubbing Psychiatric: Mood normal: yes Affect normal: yes Insight and judgement normal: yes DOLPHIN TRAINER: External genitalia: normal, no lesions Urethra: normal meatus Vagina: normal no lesions, no discharge, vault normal Cervix: absent Uterus: absent Adnexa: normal Cul de sac: normal Perineum: no hemorrhoids, masses or warts noted Breasts: normal-no masses or tenderness or skin changes DOLPHIN TRAINER Additional Details Menstrual History Menstrual StatusHysterectomy OB History History (1,0,3,2) # 1 Baby 1 Outcome Date: 1970 Outcome: Live Outcome or Result: Vaginal Gender: Male Gest Age: Fullterm Wt: -- Hospital: -- [facility] Labor: -- Child's Name: -- Baby's Father: -- # 2 Baby 1 Outcome Date: 1970 Outcome: Outcome or Result: Spontaneous Gender: -- Gest Age: -- Wt: -- Hospital: -- [facility]: -- Child's Name: -- Baby's Father: -- # 3 Baby 1 Outcome Date: 1972 Outcome: Live Outcome or Result: Vaginal Gender: Male Gest Age: Unknown Wt: -- Hospital: [facility] Labor: -- Child's Name: -- Baby's Father: -- # 4 Baby 1 Outcome Date: 1972 Outcome: Outcome or Result: Spontaneous Gender: -- Gest Age: -- Wt: -- Hospital: -- [facility] Labor: -- Child's Name: -- Baby's Father: -- # 5 Baby 1 Outcome Date: 1973 Outcome: Outcome or Result: Spontaneous Gender: -- Gest Age: -- Wt: -- Hospital: -- [facility] Labor: -- Child's Name: -- Baby's Father: -- Problem List/Past Medical History Ongoing Anemia Anxiety and depression Barretts esophagus BMI 25.0-25.9,adult Diverticulosis Fibromyalgia GERD (gastroesophageal reflux disease) Hiatal hernia Hyperlipidemia IBS (irritable bowel syndrome) Incontinence MVP (mitral valve prolapse) Osteopenia Pancreatitis Rheumatic fever Rheumatoid arthritis Tobacco use 3/4 ppd Vaginal atrophy Historical Procedure/Surgical History Mammogram - NORMAL (2019) Colonoscopy- polyp (04/30/2017) Colectomy - 8 in colon removed (2012) Cystoscopy (2012) Bone density-normal (06/02/2012) cholecystectomy (2001) Hyst - still has ovaries (1983) Tubal Ligation (1979) D&C - MAB x3 T&A Medications albuterol 90 mcg/inh inhalation aerosol, 1 puffs, Inhalation, ONCE, PRN Breo Ellipta 100 mcg-25 mcg inhalation powder, 1 puffs, Inhalation, DAILY gabapentin 100 mg oral capsule losartan 25 mg oral tablet Premarin 0.625 mg/g vaginal cream with applicator, 1 g, Vaginal, M,Th, 6 refills Prevacid 30 mg oral delayed release capsule, ORAL, DAILY tiZANidine 4 mg oral tablet traMADol 50 mg oral tablet Zocor 40 mg oral tablet, ORAL, QHS Zoloft 100 mg oral tablet, ORAL, DAILY Allergies No Known Allergies Social History Alcohol - Denies Alcohol Use, 05/18/2019 Sexual Sexually active: No. Other contraceptive use: Hyst., 05/18/2019 Substance Abuse - Denies Substance Abuse, 05/18/2019 Tobacco 10 or more cigarettes (1/2 pack or more)/day in last 30 days Tobacco Use:., 05/18/2019 Family History Breast cancer..: Aunt. Cervical cancer..: Other. Ovarian canc (more content not included)... Normal [facility] Ambulatory Clinical Summaryo n 02-24-2021 Ambulatory Clinical Summary MILAGROSYASMANICHANTAL :1950 Visit Date:02/24/2021 Ambulatory Visit Instructions Your Diagnosis Atrophic vaginitis Breast cancer screening by mammogram Encounter for well woman exam Your Care Team Attending Physician - MENDOZA CHAVEZ FACOG, DARIA Primary Care Physician - MARTIR KEENE Procedures Performed Mammogram - NORMAL (2019) Colonoscopy- polyp (04/30/2017) Colectomy - 8 in colon removed (2012) Cystoscopy (2012) Bone density-normal (06/02/2012) cholecystectomy (2001) Hyst - still has ovaries (1983) Tubal Ligation (1979) D&C - MAB x3 T&A Discharge Vitals Blood Pressure 130/80 Height 170 cm Weight 74.8 kg BMI 25.88 Systolic Blood Pressure: 130 mmHg (02/24/21 13:16:00) Diastolic Blood Pressure: 80 mmHg (02/24/21 13:16:00) Mean Arterial Pressure: 97 mmHg (02/24/21 13:16:00) Height/Length Measured: 170 cm (02/24/21 13:16:00) Weight Measured: 74.8 kg (02/24/21 13:16:00) Body Mass Index Measured: 25.88 kg/m2 (02/24/21 13:16:00) Height/Length Measured - in2: 67 in (02/24/21 13:16:00) Ht/Wt Measurement Refused by Patient?2: No (02/24/21 13:16:00) What to do next Scheduled Follow-Up Appointments No results You Need to Schedule the Following Appointments MAMM DIGITAL SCRN BILATERAL, 02/24/2021, Routine, SCREENING, Breast cancer screening by mammogram Medications What How Much When Instructions Changed conjugated estrogens topical (Premarin 0.625 mg/ g vaginal cream with applicator) 1 Gram Vaginal MON,THUR 1 g Vaginal QHS 2-3 nights weekly Pickup at [address] Unchanged albuterol = Proventil, Ventolin (albuterol 90 mcg/ inh inhalation aerosol) 1 Puffs Inhalation ONCE as needed for for wheezing Unchanged fluticasone-vilanterol (Breo Ellipta 100 mcg-25 mcg inhalation powder) 1 Puffs Inhalation DAILY Unchanged gabapentin (gabapentin 100 mg oral capsule) Unchanged lansoprazole (Prevacid 30 mg oral delayed release capsule) Oral DAILY Unchanged losartan (losartan 25 mg oral tablet) Unchanged sertraline (Zoloft 100 mg oral tablet) Oral DAILY Unchanged simvastatin (Zocor 40 mg oral tablet) Oral AT BEDTIME Unchanged tiZANidine (tiZANidine 4 mg oral tablet) Unchanged traMADol (traMADol 50 mg oral tablet) Pharmacy Information [address]: [address] [place] [address] [phone] Allergies No Known Allergies Problems Ongoing - Any problem that you are currently receiving treatment for. Anemia Anxiety and depression Barretts esophagus BMI 25.0-25.9,adult Diverticulosis Fibromyalgia GERD (gastroesophageal reflux disease) Hiatal hernia Hyperlipidemia IBS (irritable bowel syndrome) Incontinence MVP (mitral valve prolapse) Osteopenia Pancreatitis Rheumatic fever Rheumatoid arthritis Tobacco use 3/4 ppd Vaginal atrophy Historical - Any problem that you are no longer receiving treatment for. Education Materials Pjur or uberlube-over the counter Coconut oil Atrophic Vaginitis: Care Instructions Your Care Instructions Atrophic vaginitis is an irritation of the vagina. It's caused by thinning tissues and less moisture in the vaginal moya. It often happens during menopause when hormone levels change. Surgery to remove the ovaries also can cause it. Your doctor may do tests to rule out other causes. And you may get tests to measure your hormone levels. The problem is most often treated with the hormone estrogen. It comes in a cream, tablets, or a soft plastic ring that is placed in the vagina. Follow-up care is a soto part of your treatment and safety. Be sure to make and go to all appointments, and call your doctor if you are having problems. It's also a good idea to know your test results and keep a list of the medicines you take. How can you care for yourself at home? ?Use a water-based lubricant for your vagina if sex is dry or painful. Examples are Astroglide, Wet Lubricant Gel, and K-Y Jelly. ?Talk with your doctor about using low-dose vaginal estrogen. It treats dryness and thinning tissue. ?Do not douche. ?Having sex improves blood flow to the vagina. This helps keep your tissue healthy. When should you call for help? Watch closely for changes in your health, and be sure to contact your doctor if: ?You have unexpected vaginal bleeding. ?You do not get better as expected. Where can you learn more? Go to https://www.Impraise. net/patientEd Enter R330 in the search box to learn more about Atrophic Vaginitis: Care Instructions. Current as of: December 18, 2019 Content Version: 12.7 ? [employer]. Care instructions adapted under license by your healthcare professional. If you have questions about a medical condition or this instruction, always ask your healthcare professional. [employer] disclaims any warranty or liability for your use of this info (more content not included)... Normal [facility] Discharge Educationon 2020 Discharge Education scientific informatics project leader Atrophic Vaginitis: Care Instructions Your Care Instructions Atrophic vaginitis is an irritation of the vagina. It's caused by thinning tissues and less moisture in the vaginal moya. It often happens during menopause when hormone levels change. Surgery to remove the ovaries also can cause it. Your doctor may do tests to rule out other causes. And you may get tests to measure your hormone levels. The problem is most often treated with the hormone estrogen. It comes in a cream, tablets, or a soft plastic ring that is placed in the vagina. Follow-up care is a soto part of your treatment and safety. Be sure to make and go to all appointments, and call your doctor if you are having problems. It's also a good idea to know your test results and keep a list of the medicines you take. How can you care for yourself at home? ? Use a water-based lubricant for your vagina if sex is dry or painful. Examples are Astroglide, Wet Lubricant Gel, and K-Y Jelly. ? Talk with your doctor about using low-dose vaginal estrogen. It treats dryness and thinning tissue. ? Do not douche. ? Having sex improves blood flow to the vagina. This helps keep your tissue healthy. When should you call for help? Watch closely for changes in your health, and be sure to contact your doctor if: ? You have unexpected vaginal bleeding. ? You do not get better as expected. Where can you learn more? Go to https://www.Impraise. net/patientEd Enter R330 in the search box to learn more about Atrophic Vaginitis: Care Instructions. Current as of: December 18, 2019 Content Version: 12.7 ? [employer]. Care instructions adapted under license by your healthcare professional. If you have questions about a medical condition or this instruction, always ask your healthcare professional. [employer] disclaims any warranty or liability for your use of this information. Normal [facility] Phone Msgon 10-28-2020 Phone Msg - From: Tessie Ontiveros To: DARIA DONALDSON MD; Sent: 10/28/2020 13:26:31 EDT Subject: Med Management On hold pending signature Order:conjugated estrogens topical (Premarin 0.625 mg/g vaginal cream with applicator) 1 g Vaginal M,Th 1 g Vaginal QHS 2-3 nights weekly Qty: 30 g Refills: 1 Substitutions Allowed Route To Pharmacy - [facility] Question Response Last Annual/CPE/Visit Next Annual/CPE/Visit 02/24/[address] Donaldson Contact If nothing scheduled, stop, make appointment Propose number of refills to match next appointment New Medical History? no Medication Allergies? nka Patient Preferred Pharmacy? on file is correct Patient advised that refills are taken care of within 24-48 hours Launch Order and Propose Message From: DARIA DONALDSON MD, FACOG Sent: 10/28/2020 16:59:11 EDT Subject: RE:Med Management Approved Order:conjugated estrogens topical (Premarin 0.625 mg/g vaginal cream with applicator) 1 g Vaginal M,Th 1 g Vaginal QHS 2-3 nights weekly Qty: 30 g Refills: 1 Substitutions Allowed Route To Pharmacy - [facility] Signed by DARIA DONALDSON MD, FACOG 10/28/2020 16:59:00 EDT Normal [facility] XR Shoulder Bilateral Standa rdon 03-29-2020 Patient Name: CHANTAL ROGERS ---Diagnostic Radiology--- Exam Date/Time 03/29/2020 10:21:06 EDT Exam CR Shoulder 2+ Views Bilateral Ordering Physician MD BRANDAN, JIAN REEDER Accession Number [id number] CPT4 Codes 58667 () Reason For Exam chronic pain of both shoulders Report Indication: Bilateral shoulder pain. Grashey, AP, Y and axillary views of the right and left shoulders. Right shoulder: Glenohumeral joint space is maintained. There is hypertrophic bone formation at the acromioclavicular joint. Acromioclavicular alignment is maintained. Soft tissues are unremarkable. No acute fracture or dislocation. Left shoulder: Glenohumeral joint space is maintained. Acromioclavicular alignment is maintained. No acute fracture or dislocation. Soft tissues are unremarkable. 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 Report Dictated on --- Final --- Dictated: 03/29/2020 2:22 pm Dictating Physician: MD NOYOLA LAURA Signed Date and Time: 03/29/2020 2:25 pm Signed by: MD NOYOLA LAURA Transcribed Date and Time: 03/29/2020 2:22 [facility], [place] Francesco, [facility] Incoming Radiology Results From [facility] - 03/29/2020 2:26 PM EDT Patient Name: CHANTAL LINARES ---Diagnostic Radiology--- Exam Date/Time 03/29/2020 10:21:06 EDT Exam CR Shoulder 2+ Views Bilateral Ordering Physician MD BRANDAN, JIAN REEDER Accession Number [id number] CPT4 Codes 62603 () Reason For Exam chronic pain of both shoulders Report Indication: Bilateral shoulder pain. Grashey, AP, Y and axillary views of the right and left shoulders. Right shoulder: Glenohumeral joint space is maintained. There is hypertrophic bone formation at the acromioclavicular joint. Acromioclavicular alignment is maintained. Soft tissues are unremarkable. No acute fracture or dislocation. Left shoulder: Glenohumeral joint space is maintained. Acromioclavicular alignment is maintained. No acute fracture or dislocation. Soft tissues are unremarkable. 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 Report Dictated on --- Final --- Dictated: 03/29/2020 2:22 pm Dictating Physician: MD NOYOLA LAURA Signed Date and Time: 03/29/2020 2:25 pm Signed by: MD NOYOLA LAURA Transcribed Date and Time: 03/29/2020 2:22 [facility], [place] XR Ankle Standard Bilateralo n 11-11-2019 Patient Name: CHANTAL ROGERS ---Diagnostic Radiology--- Exam Date/Time 11/11/2019 13:35:59 EDT Exam CR Ankle 3+ Views Bilateral Ordering Physician CLIFTON SOTO Accession Number [id number] CPT4 Codes 94203 () Reason For Exam Chronic pain Report RIGHT ANKLE History: Pain Findings: Three views show no acute fracture, dislocation, bone erosion or periosteal reaction. There is a tiny spur at the plantar calcaneal margin and at the tip of the lateral malleolus. The talotibial joint space is maintained. LEFT ANKLE History: Pain Findings: Three views show no acute fracture, dislocation, bone erosion or periosteal reaction. There is unfused ossification center versus tiny remote avulsion fracture fragment at the tip of the medial malleolus. The talotibial joint space is maintained. IMPRESSION: No acute process in the right or left ankle. Report Dictated on --- Final --- Dictated: 11/11/2019 1:54 pm Dictating Physician: MD CLAIRE AHMAD Signed Date and Time: 11/11/2019 2:00 pm Signed by: MD CLAIRE AHMAD Transcribed Date and Time: 11/11/2019 1:54 [place], [place] Francesco, [facility] Incoming Radiology Results From [facility] - 11/11/2019 2:01 PM EDT Patient Name: CHANTAL LINARES ---Diagnostic Radiology--- Exam Date/Time 11/11/2019 13:35:59 EDT Exam CR Ankle 3+ Views Bilateral Ordering Physician CLIFTON SOTO Accession Number [id number] CPT4 Codes 97425 () Reason For Exam Chronic pain Report RIGHT ANKLE History: Pain Findings: Three views show no acute fracture, dislocation, bone erosion or periosteal reaction. There is a tiny spur at the plantar calcaneal margin and at the tip of the lateral malleolus. The talotibial joint space is maintained. LEFT ANKLE History: Pain Findings: Three views show no acute fracture, dislocation, bone erosion or periosteal reaction. There is unfused ossification center versus tiny remote avulsion fracture fragment at the tip of the medial malleolus. The talotibial joint space is maintained. IMPRESSION: No acute process in the right or left ankle. Report Dictated on --- Final --- Dictated: 11/11/2019 1:54 pm Dictating Physician: MD CLAIRE AHMAD Signed Date and Time: 11/11/2019 2:00 pm Signed by: MD CLAIRE AHMAD Transcribed Date and Time: 11/11/2019 1:54 [place], [place] XR Knee Bilateral Standard E xtended VWon 11-11-2019 Patient Name: CHANTAL ROGERS ---Diagnostic Radiology--- Exam Date/Time 11/11/2019 13:35:43 EDT Exam CR Knee Complete 4+ Views Bilateral Ordering Physician [id number] -CLIFTON CHANEY Accession Number [id number] CPT4 Codes 23110 () Reason For Exam Chronic pain Report Examination: Bilateral knees Clinical Indication: Pain Comparison: None Findings: Four views of the right and left knees. Right knee: There is no gross evidence for fracture or subluxation. Bones are grossly normal anatomic alignment. There is preservation of joint spaces. Trace joint effusion is identified. Left knee: Tiny marginal osteophytosis of the medial femorotibial joint compartment and tibial spines. No evidence for fracture or subluxation. Bones are grossly normal anatomic alignment. There is preservation of joint spaces. No sizable joint effusion is identified. Impression: 1. Suspected trace right knee joint effusion. 2. Tiny marginal osteophytosis of the left knee medial femorotibial joint compartment and tibial spines. Report Dictated on --- Final --- Dictated: 11/11/2019 2:13 pm Dictating Physician: MD KUHN JASON Signed Date and Time: 11/11/2019 2:15 pm Signed by: MD KUHN JASON Transcribed Date and Time: 11/11/2019 2:13 [place], [place] [facility], [facility] Incoming Radiology Results From [facility] - 11/11/2019 2:16 PM EDT Patient Name: CHANTAL LINARES ---Diagnostic Radiology--- Exam Date/Time 11/11/2019 13:35:43 EDT Exam CR Knee Complete 4+ Views Bilateral Ordering Physician [id number] CLIFTON OREILLY Accession Number [id number] CPT4 Codes 97882 () Reason For Exam Chronic pain Report Examination: Bilateral knees Clinical Indication: Pain Comparison: None Findings: Four views of the right and left knees. Right knee: There is no gross evidence for fracture or subluxation. Bones are grossly normal anatomic alignment. There is preservation of joint spaces. Trace joint effusion is identified. Left knee: Tiny marginal osteophytosis of the medial femorotibial joint compartment and tibial spines. No evidence for fracture or subluxation. Bones are grossly normal anatomic alignment. There is preservation of joint spaces. No sizable joint effusion is identified. Impression: 1. Suspected trace right knee joint effusion. 2. Tiny marginal osteophytosis of the left knee medial femorotibial joint compartment and tibial spines. Report Dictated on --- Final --- Dictated: 11/11/2019 2:13 pm Dictating Physician: MD KUHN JASON Signed Date and Time: 11/11/2019 2:15 pm Signed by: MD KUHN JASON Transcribed Date and Time: 11/11/2019 2:13 [place], [place] MRI Cervical Spine Noel crespozachary 07-22-2019 Patient Name: CHANTAL ROGERS ---MRI--- Exam Date/Time 07/22/2019 15:45:11 EST Exam MRI Spine Cervical w/o Contrast Ordering Physician MD WHITE BRADLEY PHILLIP Accession Number [id number] CPT4 Codes 46469 () Reason For Exam Disease of spinal cord, unspecified Report Examination: MRI cervical spine Indication: Disease of spinal cord, unspecified Technique: Multiplanar multi-sequence MRI images of the cervical spine were obtained. Findings: Anterior plate and screw fixation is present at C5-C7. There is minimal reversal of the mid cervical lordosis. Minimal anterior listhesis is present at C3/C4. The cervical vertebral bodies are in gross anatomic alignment. There is no acute fracture. There is no focal marrow replacing lesion. The cervical cord is grossly of normal caliber without signal abnormality. There is no cerebellar tonsillar ectopia. The paraspinal musculature is grossly unremarkable. At the C2/C3 level, mild degenerative facet changes are present. The central canal is patent. There is no significant foraminal narrowing. At the C3/C4 level, the central canal and foramina are patent. Mild degenerative facet changes are present. At the C4/C5 level, small broad-based posterior disc osteophyte complex causes impression on the ventral thecal sac with mild flattening of the ventral cord. Mild narrowing of the central canal is noted. The foramina are patent. Mild degenerative facet changes are noted. At the C5/C6 level, anterior cervical fusion is present. Small posterior osteophytes cause mild impression on the ventral thecal sac. The central canal is otherwise patent. Minimal left and no significant right-sided foraminal narrowing is noted. At the C6/C7 level, anterior plate and screw fixation is present. Tiny posterior osteophytes are present. The central canal is patent. Moderate bilateral foraminal narrowing is noted. At the C7/T1 level, the central canal and foramina are patent. Minimal degenerative facet changes are present. Impression: Anterior plate and screw fixation from C5-C7. Mild posterior disc bulging at C4/C5 causes mild flattening of the ventral cord. Minimal anterior listhesis at C3/C4. Report Dictated on Workstation: [id number] --- Final --- Dictated: 07/22/2019 4:06 pm Dictating Physician: MD WATTS KRIKOR Signed Date and Time: 07/22/2019 4:27 pm Signed by: MD WATTS KRIKOR Transcribed Date and Time: 07/22/2019 4:06 [facility]- [place], [place] [facility], [facility] Incoming Radiology Results From [facility] - 07/22/2019 4:28 PM EST Patient Name: CHANTAL LINARES ---MRI--- Exam Date/Time 07/22/2019 15:45:11 EST Exam MRI Spine Cervical w/o Contrast Ordering Physician MD WHITE BRADLEY PHILLIP Accession Number [id number] CPT4 Codes 62727 () Reason For Exam Disease of spinal cord, unspecified Report Examination: MRI cervical spine Indication: Disease of spinal cord, unspecified Technique: Multiplanar multi-sequence MRI images of the cervical spine were obtained. Findings: Anterior plate and screw fixation is present at C5-C7. There is minimal reversal of the mid cervical lordosis. Minimal anterior listhesis is present at C3/C4. The cervical vertebral bodies are in gross anatomic alignment. There is no acute fracture. There is no focal marrow replacing lesion. The cervical cord is grossly of normal caliber without signal abnormality. There is no cerebellar tonsillar ectopia. The paraspinal musculature is grossly unremarkable. At the C2/C3 level, mild degenerative facet changes are present. The central canal is patent. There is no significant foraminal narrowing. At the C3/C4 level, the central canal and foramina are patent. Mild degenerative facet changes are present. At the C4/C5 level, small broad-based posterior disc osteophyte complex causes impression on the ventral thecal sac with mild flattening of the ventral cord. Mild narrowing of the central canal is noted. The foramina are patent. Mild degenerative facet changes are noted. At the C5/C6 level, anterior cervical fusion is present. Small posterior osteophytes cause mild impression on the ventral thecal sac. The central canal is otherwise patent. Minimal left and no significant right-sided foraminal narrowing is noted. At the C6/C7 level, anterior plate and screw fixation is present. Tiny posterior osteophytes are present. The central canal is patent. Moderate bilateral foraminal narrowing is noted. At the C7/T1 level, the central canal and foramina are patent. Minimal degenerative facet changes are present. Impression: Anterior plate and screw fixation from C5-C7. Mild posterior disc bulging at C4/C5 causes mild flattening of the ventral cord. Minimal anterior listhesis at C3/C4. Report Dictated on Workstation: [id number] --- Final --- Dictated: 07/22/2019 4:06 pm Dictating Physician: MD WATTS KRIKOR Signed Date and Time: 07/22/2019 4:27 pm Signed by: MD WATTS KRIKOR Transcribed Date and Time: 07/22/2019 4:06 [facility], [facility] and Differentialon 07-17 Abs Baso <0.03 Normal <0.11 [facility] Reference Lab Comment on above: Performed By: #### C BCDIF, CMP #### [facility] Routine Lab [address], [place] [address] Abs Lamoure 0.54 k/uL Normal <0.87 [facility] Reference Lab Comment on above: Performed By: #### C BCDIF, CMP #### [facility] Routine Lab [address] [place] [address] Abs Neut 2.92 k/uL Normal 1.45-7.50 [facility] Reference Lab Comment on above: Performed By: #### C BCDIF, CMP #### [facility] Routine Lab [address] [place] [address] Absolute nRBC <0.01 Normal <0.01 [facility] Reference Lab Comment on above: Performed By: #### C BCDIF, CMP #### [facility] Routine Lab [address] [place] [address] Basophils/100 WBC (Bld) 0.4 % Normal [facility] Reference Lab Comment on above: Performed By: #### C BCDIF, CMP #### [facility] Routine Lab [address] [place] [address] DTYPE ADIFF Normal [facility] Reference Lab Comment on above: Performed By: #### C BCDIF, CMP #### [facility] Routine Lab [address] [place] [address] Eosinophils (Bld) [#/Vol] 10*3/uL Normal <0.46 [facility] Reference Lab Comment on above: Performed By: #### C BCDIF, CMP #### [facility] Routine Lab [address] [place] [address] Eosinophils/100 WBC (Bld) 0.4 % Normal [facility] Reference Lab Comment on above: Performed By: #### C BCDIF, CMP #### [facility] Routine Lab [address], [place] [address] Erythrocyte distribution width (RBC) [Ratio] 13.7 % Normal 11.5-15.0 [facility] Reference Lab Comment on above: Performed By: #### C BCDIF, CMP #### [facility] Routine Lab [address], [place] [address] Hematocrit (Bld) [Volume fraction] 40.7 % Normal 36.0-46.0 [facility] Reference Lab Comment on above: Performed By: #### C BCDIF, CMP #### [facility] Routine Lab [address], [place] [address] Hemoglobin (Bld) [Mass/Vol] 13.1 g/dL Normal 11.5-15.5 [facility] Reference Lab Comment on above: Performed By: #### C BCMADELINEF, CMP #### [facility] Routine Lab [address], [place] [address] Lymphocytes (Bld) [#/Vol] 1.75 10*3/uL Normal 1.00-4.00 [facility] Reference Lab Comment on above: Performed By: #### C BCMADELINEF, CMP #### [facility] Routine Lab [address], [place] [address] Lymphocytes/100 WBC (Bld) 33.2 % Normal [facility] Reference Lab Comment on above: Performed By: #### C BCDIF, CMP #### [facility] Routine Lab [address], [place] [address] MCH (RBC) [Entitic mass] 30.8 pG Normal 26.0-34.0 [facility] Reference Lab Comment on above: Performed By: #### C BCDIF, CMP #### [facility] Routine Lab [address], [place] [address] MCHC (RBC) [Mass/Vol] 32.2 g/dL Normal 30.5-36.0 [facility] Reference Lab Comment on above: Performed By: #### C BCDIF, CMP #### [facility] Routine Lab [address], [place] [address] MCV (RBC) [Entitic vol] 95.5 fL Normal 80.0-100.0 [facility] Reference Lab Comment on above: Performed By: #### C BCDIF, CMP #### [facility] Routine Lab [address] [place] [address] Monocytes/100 WBC (Bld) 10.2 % Normal [facility] Reference Lab Comment on above: Performed By: #### C BCDIF, CMP #### [facility] Routine Lab [address] [place] [address] Neutrophils/100 WBC (Bld) 55.8 % Normal [facility] Reference Lab Comment on above: Performed By: #### C BCDIF, CMP #### [facility] Routine Lab [address] [place] [address] NRBCs 0.0 /100 WBC Normal 0 [facility] Reference Lab Comment on above: Performed By: #### C BCDIF, CMP #### [facility] Routine Lab [address] [place] [address] Platelet mean volume (Bld) [Entitic vol] 8.8 fL Low 9.0-12.7 [facility] Reference Lab Comment on above: Performed By: #### C BCDIF, CMP #### [facility] Routine Lab [address] [place] [address] Platelets (Bld) [#/Vol] 353 10*3/uL Normal 150-400 [facility] Reference Lab Comment on above: Performed By: #### C BCDIF, CMP #### [facility] Routine Lab [address] [place] [address] RBC (Bld) [#/Vol] 4.26 10*6/uL Normal 3.90-5.20 [facility] Reference Lab Comment on above: Performed By: #### C BCDIF, CMP #### [facility] Routine Lab [address], [place] [address] WBC (Bld) [#/Vol] 5.27 10*3/uL Normal 3.70-11.00 [facility] Reference Lab Comment on above: Performed By: #### C BCDIF, CMP #### [facility] Routine Lab [address], [place] [address] Comp Metabolic Panelon 07-17 Albumin [Mass/Vol] 4.3 g/dL Normal 3.9-4.9 [facility] Reference Lab Comment on above: Performed By: #### C BCMADELINEF, CMP #### [facility] Routine Lab [address], [place] [address] ALP [Catalytic activity/Vol] 71 U/L Normal 34-123 [facility] Reference Lab Comment on above: Performed By: #### C BCDIF, CMP #### [facility] Routine Lab [address] [place] [address] ALT [Catalytic activity/Vol] 15 U/L Normal 7-38 [facility] Reference Lab Comment on above: Performed By: #### C BCDIF, CMP #### [facility] Routine Lab [address], [place] [id number] Anion gap [Moles/Vol] 10 mmol/L Normal 9-18 [facility] Lab Comment on above: Performed By: #### C BCDIF, CMP #### [facility] Routine Lab [address], [place] [id number] AST [Catalytic activity/Vol] 18 U/L Normal 13-35 [facility] Reference Lab Comment on above: Performed By: #### C BCDIF, CMP #### [facility] Routine Lab [address], [place] [address] Bilirubin Ql (U) 0.2 mg/dL Normal 0.2-1.3 [facility] Reference Lab Comment on above: Performed By: #### C BCDIF, CMP #### [facility] Routine Lab [address], [place] [address] Calcium [Mass/Vol] 9.2 mg/dL Normal 8.5-10.2 [facility] Reference Lab Comment on above: Performed By: #### C BCDIF, CMP #### [facility] Routine Lab [address], [place] [address] Chloride [Moles/Vol] 98 mmol/L Normal 97-105 [facility] Reference Lab Comment on above: Performed By: #### C BCDIF, CMP #### [facility] Routine Lab [address], [place] [address] CO2 [Moles/Vol] 29 mmol/L Normal 22-30 [facility] Reference Lab Comment on above: Performed By: #### C BCDIF, CMP #### [facility] Routine Lab [address], [place] [address] Creatinine [Mass/Vol] 0.54 mg/dL Low 0.58-0.96 [facility] Reference Lab Comment on above: Performed By: #### C BCDIF, CMP #### [facility] Routine Lab [address], [place] [address] eGFR- Amer. >60 Normal [facility] Reference Lab Comment on above: Performed By: #### C BCDIF, CMP #### [facility] Routine Lab [address], [place] [address] GFR/1.73 sq M predicted among non-blacks MDRD (S/P/Bld) [Vol rate/Area] mL/min/{1.73_m2} Normal [facility] Reference Lab Comment on above: Performed By: #### C BCDIF, CMP #### [facility] Routine Lab [address], [place] [address] Glucose [Mass/Vol] 96 mg/dL Normal 74-99 [facility] Reference Lab Comment on above: Performed By: #### C BCDIF, CMP #### [facility] Routine Lab [address], [place] [address] Potassium [Moles/Vol] 4.2 mmol/L Normal 3.7-5.1 [facility] Reference Lab Comment on above: Performed By: #### C BCDIF, CMP #### [facility] Routine Lab [address], [place] [address] Protein [Mass/Vol] 6.3 g/dL Normal 6.3-8.0 [facility] Reference Lab Comment on above: Performed By: #### C BCDIF, CMP #### [facility] Routine Lab [address], [place] [address] Sodium [Moles/Vol] 137 mmol/L Normal 136-144 [facility] Reference Lab Comment on above: Performed By: #### C BCDIF, CMP #### [facility] Routine Lab [address], [place] [address] Urea nitrogen [Mass/Vol] 13 mg/dL Normal 7-21 [facility] Reference Lab Comment on above: Performed By: #### C BCDIF, CMP #### [facility] Routine Lab [address], [place] [address] PAPITO OSCAR DIGITAL SCREEN TANOUmu HINTONLisa 03-30-2019 Patient Name: CHANTAL ROGERS ---Mammography--- Exam Date/Time 03/30/2019 12:05:46 EDT Exam MG Breast Tomosynthesis BI Scr Ordering Physician MARTIR KEENE Accession Number [id number] CPT4 Codes 60464 (MG Breast Tomosynthesis Scr Bl), 85577 (MG MAMMO 2D SCREENING) Reason For Exam screening Report TIME SINCE LAST MAMMOGRAM: Last mammogram was performed 2 years and 5 months ago. REASON FOR EXAM: screening, asymptomatic. PROCEDURE: MG BREAST TOMOSYNTHESIS BL SCR: MARCH 30, 2019 - 2D/3D Procedure 3D Bilateral CC and MLO view(s) were taken. 2D Bilateral CC and MLO view(s) were taken. Prior study comparison: November 15, 2016, left breast MG breast tomosynthesis left performed at [facility]. October 24, 2016, bilateral MG breast tomosynthesis bl scr performed at [facility]. May 25, 2014, bilateral screening mammogram performed at [facility]. June 09, 2012, bilateral screening mammogram performed at [facility]. TISSUE DENSITY: There are scattered fibroglandular densities. . FINDINGS: No suspicious masses, architectural distortions or suspiciously clustered microcalcifications are identified. There is no evidence of skin thickening or nipple retraction. There are no significant changes when compared with prior studies. Markings on images: BB's = Nipples; skin lesions Open [place] = Palpable Line = Scar 2D digital mammography and tomosynthesis imaging were performed and reviewed with CAD. ASSESSMENT: Category 1 Negative No mammographic evidence of malignancy. RECOMMENDATION: Routine screening mammogram of both breasts in 1 year. . Report Dictated on Cancer Risk Assessment: This risk assessment is based on patient provided information collected in a risk survey taken at the time of this examination. Lifetime breast cancer risk: 5.9% - If greater than or equal to 20%, consider annual mammogram and annual screening Breast MRI or follow up in high risk clinic. Is the patient at elevated risk based on the HBOC criteria? Yes (Hereditary Breast and Ovarian Cancer) - If yes, consider genetic counseling and testing with high risk follow up. HNPCC mutation risk (Borrero Syndrome): 1.4% - if greater than or equal to 5%, consider genetic counseling, testing and screening colonoscopy. --- Final --- Signed Date and Time: 03/30/2019 1:31 pm Signed by: MD AMY, [facility] [place], [facility] Incoming Radiology Results From [facility] - 03/30/2019 2:58 PM EDT Patient Name: CHANTAL LINARES ---Mammography--- Exam Date/Time 03/30/2019 12:05:46 EDT Exam MG Breast Tomosynthesis BI Scr Ordering Physician MARTIR KEENE Accession Number [id number] CPT4 Codes 98510 (MG Breast Tomosynthesis Scr Bl), 77179 (MG MAMMO 2D SCREENING) Reason For Exam screening Report TIME SINCE LAST MAMMOGRAM: Last mammogram was performed 2 years and 5 months ago. REASON FOR EXAM: screening, asymptomatic. PROCEDURE: MG BREAST TOMOSYNTHESIS BL SCR: MARCH 30, 2019 - 2D/3D Procedure 3D Bilateral CC and MLO view(s) were taken. 2D Bilateral CC and MLO view(s) were taken. Prior study comparison: November 15, 2016, left breast MG breast tomosynthesis left performed at [facility]. October 24, 2016, bilateral MG breast tomosynthesis bl scr performed at [facility]. May 25, 2014, bilateral screening mammogram performed at [facility]. June 09, 2012, bilateral screening mammogram performed at [facility]. TISSUE DENSITY: There are scattered fibroglandular densities. . FINDINGS: No suspicious masses, architectural distortions or suspiciously clustered microcalcifications are identified. There is no evidence of skin thickening or nipple retraction. There are no significant changes when compared with prior studies. Markings on images: BB's = Nipples; skin lesions Open [place] = Palpable Line = Scar 2D digital mammography and tomosynthesis imaging were performed and reviewed with CAD. ASSESSMENT: Category 1 Negative No mammographic evidence of malignancy. RECOMMENDATION: Routine screening mammogram of both breasts in 1 year. . Report Dictated on Cancer Risk Assessment: This risk assessment is based on patient provided information collected in a risk survey taken at the time of this examination. Lifetime breast cancer risk: 5.9% - If greater than or equal to 20%, consider annual mammogram and annual screening Breast MRI or follow up in high risk clinic. Is the patient at elevated risk based on the HBOC criteria? Yes (Hereditary Breast and Ovarian Cancer) - If yes, consider genetic counseling and testing with high risk follow up. HNPCC mutation risk (Borrero Syndrome): 1.4% - if greater than or equal to 5%, consider genetic counseling, testing and screening colonoscopy. --- Final --- Signed Date and Time: 03/30/2019 1:31 pm Signed by: MD AMY, ANNIA Aguirre [place], [place] CT Lung Screening (Annual)on 01-29-2019 Patient Name: CHANTAL ROGERS ---CT--- Exam Date/Time 01/29/2019 10:45:[address] Low Dose Lung Scrn Ordering Physician MD GLASGOW STEPHEN B Accession Number [id number] CPT4 Codes G0297 (CT Low Dose Lung Scrn) Reason For Exam Personal history of nicotine dependence Report CLINICAL HISTORY: History of tobacco use. This is a screening study for pulmonary nodules. COMPARISON: 10/19/2016 Technique: 1 mm low dose helical CT images were obtained of the chest without the use of intravenous contrast. Images were reformatted in coronal and sagittal projections. FINDINGS: Pulmonary nodules: *All nodule measurements are mean axial diameter* There are no suspicious pulmonary nodules or masses. Lungs: The lungs are clear without opacification or consolidation in a background of centrilobular emphysema. No pleural effusion. The tracheobronchial tree remains patent. Mediastinum: Normal heart size with no pericardial effusion. Dense coronary artery calcifications. Aorta and pulmonary arteries normal in caliber. Scattered calcific atheromatous disease. No enlarged mediastinal, hilar, or axillary lymph nodes. Thyroid and Esophagus: Normal thyroid. Enlarging right breast nodule measuring 7 mm, previously measuring 5 mm (image 40 series 2). Upper Abdomen: Unremarkable upper abdomen. Soft tissues and Osseous structures: Multilevel spondylosis. No suspicious osseous lesions. IMPRESSION: 1. Lung RADS Category 1 - Negative - Continue annual screening. 2. Category S; Enlarging right breast nodule measuring 7 mm, previously measuring 5 mm. Mammogram follow-up is recommended. 3. Centrilobular emphysema. 4. Dense coronary artery calcifications. Lung-RADS Version 1.0 Assessment Categories - for Screening CT Chest Only. Release date: September 28, 2013 Category 1 - Negative - Continue annual screening No nodules Nodules with benign characteristics (complete, central, popcorn Ca++) or fat Category 2 - Benign appearance or behavior - Continue annual screening Solid nodule(s): < 6 mm or new < 4 mm Part solid nodule(s): < 6 mm total diameter on baseline screening Nonsolid nodule(s) (GGN): < 20 mm OR > 20 mm and unchanged or slowly growing Category 3 or 4 nodules unchanged for > 3 months Category 3 - Probably benign finding(s) - 6 month follow up Solid nodule(s): 6 to < 8 mm at baseline OR new 4 mm to < 6 mm Part solid nodule(s) 6 mm total diameter with solid component < 6 mm OR new < 6 mm total diameter Nonsolid nodule(s) (GGN) > [address] or new Category 4A - Suspicious - 3 month follow up or PET/CT when >8mm Solid nodule(s): 8 to < 15 mm at baseline OR growing < 8 mm OR new 6 to <8 mm Part solid nodule(s): > 6 mm with solid component > 6 mm to < 8 mm OR with a new or growing < 4 mm solid component Any endobronchial nodule Category 4B - Suspicious - chest CT with or without contrast, PET/CT and/or tissue sampling depending on the *probability of malignancy and comorbidities. PET/CT may be used when there is a > 8 mm solid component Solid nodule(s): > 15 mm OR new or growing, and > 8 mm Part solid nodule(s) with: a solid component > 8 mm OR a new or growing > 4mm solid component Category 4X - Suspicious - (same work up as Category 4B) Category 3 or 4 nodules with additional features or imaging findings that increases the suspicion of malignancy - spiculation, rapid growth or associated lymph node enlargement Modifiers to add to Category 0-4: Category S - Clinically or potentially significant non lung cancer related findings Category C - History of prior lung cancer who have returned to screening IMPORTANT NOTES FOR USE: 1. Size: nodules should be measured on lung windows and reported as the average diameter rounded to the nearest whole number; for round nodules only a single diameter measurement is necessary 2. Size Thresholds: apply to nodules at first detection, and that grow and reach a higher size category 3. Growth: an increase in size of > 1.5 mm 4. Exam Modifiers: S and C modifiers may be added to the 0-4 category 5. Category 4X: nodules with additional imaging findings that increase the suspicion of lung cancer, such as spiculation, GGN that doubles in size in 1 year, enlarged lymph nodes etc 6. Nodules with features of an intrapulmonary lymph node should be managed by mean diameter and the 0-4 numerical category classification 7. Category 3 and 4A nodules that are unchanged on interval CT should be coded as category 2, and individuals returned to screening in 12 months Report Dictated on Workstation: [id number] --- Final --- Dictated: 01/29/2019 11:18 am Dictating Physician: MD KUHN JASON Signed Date and Time: 01/29/2019 11:24 am Signed by: MD UKHN JASON Transcribed Date and Time: 01/29/2019 11:18 [facility]- [place], [place], [place] Incoming Radiology [facility] - 01/29/2019 11:26 AM EDT Patient Name: CHANTAL LINARES ---CT--- Exam Date/Time 01/29/2019 10:45:[address] Low Dose Lung Scrn Ordering Physician MD GLASGOW STEPHEN B Accession Number [id number] CPT4 Codes G0297 (CT Low Dose Lung Scrn) Reason For Exam Personal history of nicotine dependence Report CLINICAL HISTORY: History of tobacco use. This is a screening study for pulmonary nodules. COMPARISON: 10/19/2016 Technique: 1 mm low dose helical CT images were obtained of the chest without the use of intravenous contrast. Images were reformatted in coronal and sagittal projections. FINDINGS: Pulmonary nodules: *All nodule measurements are mean axial diameter* There are no suspicious pulmonary nodules or masses. Lungs: The lungs are clear without opacification or consolidation in a background of centrilobular emphysema. No pleural effusion. The tracheobronchial tree remains patent. Mediastinum: Normal heart size with no pericardial effusion. Dense coronary artery calcifications. Aorta and pulmonary arteries normal in caliber. Scattered calcific atheromatous disease. No enlarged mediastinal, hilar, or axillary lymph nodes. Thyroid and Esophagus: Normal thyroid. Enlarging right breast nodule measuring 7 mm, previously measuring 5 mm (image 40 series 2). Upper Abdomen: Unremarkable upper abdomen. Soft tissues and Osseous structures: Multilevel spondylosis. No suspicious osseous lesions. IMPRESSION: 1. Lung RADS Category 1 - Negative - Continue annual screening. 2. Category S; Enlarging right breast nodule measuring 7 mm, previously measuring 5 mm. Mammogram follow-up is recommended. 3. Centrilobular emphysema. 4. Dense coronary artery calcifications. Lung-RADS Version 1.0 Assessment Categories - for Screening CT Chest Only. Release date: September 28, 2013 Category 1 - Negative - Continue annual screening No nodules Nodules with benign characteristics (complete, central, popcorn [place]++) or fat Category 2 - Benign appearance or behavior - Continue annual screening Solid nodule(s): < 6 mm or new < 4 mm Part solid nodule(s): < 6 mm total diameter on baseline screening Nonsolid nodule(s) (GGN): < 20 mm OR > 20 mm and unchanged or slowly growing Category 3 or 4 nodules unchanged for > 3 months Category 3 - Probably benign finding(s) - 6 month follow up Solid nodule(s): 6 to < 8 mm at baseline OR new 4 mm to < 6 mm Part solid nodule(s) 6 mm total diameter with solid component < 6 mm OR new < 6 mm total diameter Nonsolid nodule(s) (GGN) > [address] or new Category 4A - Suspicious - 3 month follow up or PET/CT when >8mm Solid nodule(s): 8 to < 15 mm at baseline OR growing < 8 mm OR new 6 to <8 mm Part solid nodule(s): > 6 mm with solid component > 6 mm to < 8 mm OR with a new or growing < 4 mm solid component Any endobronchial nodule Category 4B - Suspicious - chest CT with or without contrast, PET/CT and/or tissue sampling depending on the *probability of malignancy and comorbidities. PET/CT may be used when there is a > 8 mm solid component Solid nodule(s): > 15 mm OR new or growing, and > 8 mm Part solid nodule(s) with: a solid component > 8 mm OR a new or growing > 4mm solid component Category 4X - Suspicious - (same work up as Category 4B) Category 3 or 4 nodules with additional features or imaging findings that increases the suspicion of malignancy - spiculation, rapid growth or associated lymph node enlargement Modifiers to add to Category 0-4: Category S - Clinically or potentially significant non lung cancer related findings Category C - History of prior lung cancer who have returned to screening IMPORTANT NOTES FOR USE: 1. Size: nodules should be measured on lung windows and reported as the average diameter rounded to the nearest whole number; for round nodules only a single diameter measurement is necessary 2. Size Thresholds: apply to nodules at first detection, and that grow and reach a higher size category 3. Growth: an increase in size of > 1.5 mm 4. Exam Modifiers: S and C modifiers may be added to the 0-4 category 5. Category 4X: nodules with additional imaging findings that increase the suspicion of lung cancer, such as spiculation, GGN that doubles in size in 1 year, enlarged lymph nodes etc 6. Nodules with features of an intrapulmonary lymph node should be managed by mean diameter and the 0-4 numerical category classification 7. Category 3 and 4A nodules that are unchanged on interval CT should be coded as category 2, and individuals returned to screening in 12 months Report Dictated on Workstation: [id number] --- Final --- Dictated: 01/29/2019 11:18 am Dictating Physician: MD KUHN JASON Signed Date and Time: 01/29/2019 11:24 am Signed by: MD KUHN JASON Transcribed Date and Time: 01/29/2019 11:18 [place], [place] CULTURE URINEon 08-19-2017 CULTURE URINE CULTURE URINE --> Status: F Normal urogenital lorne present. Normal [facility] Comment on above: Performed By: #### C /UR ####The performing lab is in the report. Colonoscopy w/ or w/o biopsy on 01-06-2013 Colonic polyp Diverticulosis with sigmoid stricture Hemorrhoids [facility] This order was creat ed through External Result Entry [facility] Vital Signs Date Time Vital Sign Value Performing Clinician Facility 01-25-2025 09:00-0400 Body height 170.[address] Martir Keene MD Work Phone: [facility] 01-25-2025 09:00-0400 Body mass index (BMI) [Ratio] 25 kg/m2 Dr. Martir Keene MD Work Phone: [facility] 01-25-2025 09:00-0400 Body weight 72.[address] Martir Keene MD Work Phone: [facility] 01-25-2025 09:00-0400 Diastolic blood pressure 88 mm[Hg] Dr. Martir Keene MD Work Phone: [facility] 01-25-2025 09:00-0400 Heart rate 86 /min Dr. Martir Keene MD Work Phone: [facility] 01-25-2025 09:00-0400 Respiratory rate 18 /min Dr. Martir Keene MD Work Phone: [facility] 01-25-2025 09:00-0400 SaO2% (BldA) [Mass fraction] 97 % Dr. Martir Keene MD Work Phone: [facility] 01-25-2025 09:00-0400 Systolic blood pressure 132 mm[Hg] Dr. Martir Keene MD Work Phone: [facility] 11-30-2024 14:18-0400 Body height 170.[address] Martir Keene MD Work Phone: [facility] 11-30-2024 14:18-0400 Body mass index (BMI) [Ratio] 25 kg/m2 Dr. Martir Keene MD Work Phone: [facility] 11-30-2024 14:18-0400 Body temperature 98.5 [degF] Dr. Martir Keene MD Work Phone: [facility] 11-30-2024 14:18-0400 Body weight 72.[address] Martir Keene MD Work Phone: [facility] 11-30-2024 14:18-0400 Diastolic blood pressure 76 mm[Hg] Dr. Martir Keene MD Work Phone: [facility] 11-30-2024 14:18-0400 Heart rate 91 /min Dr. Martir Keene MD Work Phone: [facility] 11-30-2024 14:18-0400 Respiratory rate 18 /min Dr. Martir Keene MD Work Phone: [facility] 11-30-2024 14:18-0400 SaO2% (BldA) [Mass fraction] 94 % Dr. Martir Keene MD Work Phone: [facility] 11-30-2024 14:18-0400 Systolic blood pressure 122 mm[Hg] Dr. Martir Keene MD Work Phone: [facility] 09-28-2024 07:34-0400 Body height 170.[address] Martir Keene MD Work Phone: [facility] 09-28-2024 07:34-0400 Body mass index (BMI) [Ratio] 25.9 kg/m2 Dr. Martir Keene MD Work Phone: [facility] 09-28-2024 07:34-0400 Body weight 75.[address] Martir Keene MD Work Phone: [facility] 09-28-2024 07:34-0400 Diastolic blood pressure 88 mm[Hg] Dr. Martir Keene MD Work Phone: [facility] 09-28-2024 07:34-0400 Heart rate 81 /min Dr. Martir Keene MD Work Phone: [facility] 09-28-2024 07:34-0400 Respiratory rate 18 /min Dr. Martir Keene MD Work Phone: [facility] 09-28-2024 07:34-0400 SaO2% (BldA) [Mass fraction] 95 % Dr. Martir Keene MD Work Phone: [facility] 09-28-2024 07:34-0400 Systolic blood pressure 136 mm[Hg] Dr. Martir Keene MD Work Phone: [facility] 09-02-2024 13:31-0400 Body height 170.2 cm Martir Keene MD Work Phone: [facility] 09-02-2024 13:31-0400 Body mass index (BMI) [Ratio] 25.84 kg/m2 Martir Keene MD Work Phone: [facility] 09-02-2024 13:31-0400 Body weight 74.84 kg Martir Keene MD Work Phone: [facility] 08-10-2024 12:59-0400 Body height 170.2 cm German Dietz MD Work Phone: [facility] 08-10-2024 12:59-0400 Body mass index (BMI) [Ratio] 25.53 kg/m2 German Dietz MD Work Phone: [facility] 08-10-2024 12:59-0400 Body weight 73.94 kg German Dietz MD Work Phone: [facility] 08-10-2024 12:59-0400 Diastolic blood pressure 85 mm[Hg] German Dietz MD Work Phone: [facility] 08-10-2024 12:59-0400 Heart rate 86 /min German Dietz MD Work Phone: [facility] 08-10-2024 12:59-0400 Systolic blood pressure 126 mm[Hg] German Dietz MD Work Phone: [facility] 07-29-2024 14:21-0500 Body mass index (BMI) [Ratio] 26 kg/m2 Martir Keene MD Work Phone: [facility] 07-29-2024 14:21-0500 Body weight 75.3 kg Martir Keene MD Work Phone: [facility] 07-29-2024 14:21-0500 Diastolic blood pressure 78 mm[Hg] Martir Keene MD Work Phone: [facility] 07-29-2024 14:21-0500 Heart rate 94 /min Martir Keene MD Work Phone: [facility] 07-29-2024 14:21-0500 SaO2% (BldA) [Mass fraction] 95 % Martir Keene MD Work Phone: [facility] 07-29-2024 14:21-0500 Systolic blood pressure 111 mm[Hg] Martir Keene MD Work Phone: [facility] 05-11-2024 13:18-0500 Body height 170.2 cm German Dietz MD Work Phone: [facility] 05-11-2024 13:18-0500 Body mass index (BMI) [Ratio] 26 kg/m2 German Dietz MD Work Phone: [facility] 05-11-2024 13:18-0500 Body weight 75.3 kg German Dietz MD Work Phone: [facility] 05-11-2024 13:18-0500 Diastolic blood pressure 54 mm[Hg] German Dietz MD Work Phone: [facility] 05-11-2024 13:18-0500 Heart rate 81 /min German Dietz MD Work Phone: [facility] 05-11-2024 13:18-0500 Systolic blood pressure 92 mm[Hg] German Dietz MD Work Phone: [facility] 04-27-2024 13:42-0500 Body height 170.2 cm Geramn Dietz MD Work Phone: [facility] 04-27-2024 13:42-0500 Body mass index (BMI) [Ratio] 25.84 kg/m2 German Dietz MD Work Phone: [facility] 04-27-2024 13:42-0500 Body weight 74.84 kg German Dietz MD Work Phone: [facility] 04-27-2024 13:42-0500 Diastolic blood pressure 71 mm[Hg] German Dietz MD Work Phone: [facility] 04-27-2024 13:42-0500 Heart rate 84 /min German Dietz MD Work Phone: [facility] 04-27-2024 13:42-0500 Systolic blood pressure 105 mm[Hg] German Dietz MD Work Phone: [facility] 04-15-2024 11:19-0500 Body temperature 97.7 [degF] German Dietz MD Work Phone: [facility] 04-15-2024 11:19-0500 Diastolic blood pressure 66 mm[Hg] German Dietz MD Work Phone: [facility] 04-15-2024 11:19-0500 Heart rate 88 /min German Dietz MD Work Phone: [facility] 04-15-2024 11:19-0500 Respiratory rate 13 /min German Dietz MD Work Phone: [facility] 04-15-2024 11:19-0500 SaO2% (BldA) [Mass fraction] 91 % German Dietz MD Work Phone: [facility] 04-15-2024 11:19-0500 Systolic blood pressure 118 mm[Hg] German Dietz MD Work Phone: [facility] 02-24-2024 15:55-0400 Diastolic blood pressure 90 mm[Hg] German Dietz MD Work Phone: [facility] 02-24-2024 15:55-0400 Heart rate 87 /min German Dietz MD Work Phone: [facility] 02-24-2024 15:55-0400 Systolic blood pressure 149 mm[Hg] German Dietz MD Work Phone: [facility] 02-24-2024 15:26-0400 Body height 157.5 cm German Dietz MD Work Phone: [facility] 02-24-2024 15:26-0400 Body mass index (BMI) [Ratio] 30.36 kg/m2 German Dietz MD Work Phone: [facility] 02-24-2024 15:26-0400 Body weight 75.3 kg German Dietz MD Work Phone: [facility] 02-19-2024 10:02-0400 Body height 170.2 cm Jake Franco MD Work Phone: [facility] 02-19-2024 10:02-0400 Body mass index (BMI) [Ratio] 23.81 kg/m2 Jake Franco MD Work Phone: [facility] 02-19-2024 10:02-0400 Body weight 68.95 kg Jake Franco MD Work Phone: [facility] 01-31-2024 15:34-0400 Body height 170.2 cm Jake Franco MD Work Phone: [facility] 01-31-2024 15:34-0400 Body mass index (BMI) [Ratio] 23.81 kg/m2 Jake Franco MD Work Phone: [facility] 01-31-2024 15:34-0400 Body weight 68.95 kg Jake Franco MD Work Phone: [facility] 01-31-2024 15:34-0400 Diastolic blood pressure 82 mm[Hg] Jake Franco MD Work Phone: [facility] 01-31-2024 15:34-0400 Heart rate 102 /min Jake Franco MD Work Phone: [facility] 01-31-2024 15:34-0400 Systolic blood pressure 124 mm[Hg] Jake Franco MD Work Phone: [facility] 01-10-2024 13:33-0400 Body height 170.2 cm Jake Franco MD Work Phone: [facility] 01-10-2024 13:33-0400 Body mass index (BMI) [Ratio] 23.81 kg/m2 Jake Franco MD Work Phone: [facility] 01-10-2024 13:33-0400 Body weight 68.95 kg Jake Franco MD Work Phone: [facility] 01-10-2024 13:33-0400 Diastolic blood pressure 89 mm[Hg] Jake Franco MD Work Phone: [facility] 01-10-2024 13:33-0400 Heart rate 75 /min Jake Franco MD Work Phone: [facility] 01-10-2024 13:33-0400 Systolic blood pressure 145 mm[Hg] Jake Franco MD Work Phone: [facility] 10-19-2023 23:20-0400 Diastolic blood pressure 75 mm[Hg] Chris Nesheim DO Work Phone: [employer] 10-19-2023 23:20-0400 Heart rate 87 /min Chris Nesheim DO Work Phone: [facility] 10-19-2023 23:20-0400 Respiratory rate 14 /min Chris Nesheim DO Work Phone: [facility] 10-19-2023 23:20-0400 SaO2% (BldA) [Mass fraction] 99 % Chris Nesheim DO Work Phone: [facility] 10-19-2023 23:20-0400 Systolic blood pressure 146 mm[Hg] Chris Nesheim DO Work Phone: [facility] 10-19-2023 22:26-0400 Body height 170.2 cm Chris Nesheim DO Work Phone: [facility] 10-19-2023 22:26-0400 Body mass index (BMI) [Ratio] 23.81 kg/m2 Chris Nesheim DO Work Phone: [facility] 10-19-2023 22:26-0400 Body weight 68.95 kg Chris Nesheim DO Work Phone: [facility] 10-19-2023 21:39-0400 Body temperature 98.2 [degF] Chris Nesheim DO Work Phone: [facility] 08-23-2023 13:13-0400 Body height 170.2 cm Martir Keene MD Work Phone: [facility] 08-23-2023 13:13-0400 Body mass index (BMI) [Ratio] 23.96 kg/m2 Martir Keene MD Work Phone: [facility] 08-23-2023 13:13-0400 Body weight 69.4 kg Martir Keene MD Work Phone: [facility] 08-23-2023 13:13-0400 Diastolic blood pressure 78 mm[Hg] Martir Keene MD Work Phone: [facility] 08-23-2023 13:13-0400 Heart rate 84 /min Martir Keene MD Work Phone: [facility] 08-23-2023 13:13-0400 SaO2% (BldA) [Mass fraction] 97 % Martir Keene MD Work Phone: [facility] 08-23-2023 13:13-0400 Systolic blood pressure 119 mm[Hg] Martir Keene MD Work Phone: [facility] 08-01-2023 10:34-0500 Body height 170.2 cm Martir Keene MD Work Phone: [facility] 08-01-2023 10:34-0500 Body mass index (BMI) [Ratio] 24.28 kg/m2 Martir Keene MD Work Phone: [facility] 08-01-2023 10:34-0500 Body weight 70.31 kg Martir Keene MD Work Phone: [facility] 08-01-2023 10:34-0500 Diastolic blood pressure 89 mm[Hg] Martir Keene MD Work Phone: [facility] 08-01-2023 10:34-0500 Heart rate 70 /min Martir Keene MD Work Phone: [facility] 08-01-2023 10:34-0500 SaO2% (BldA) [Mass fraction] 94 % Martir Keene MD Work Phone: [facility] 08-01-2023 10:34-0500 Systolic blood pressure 126 mm[Hg] Martir Keene MD Work Phone: [facility] 03-15-2023 15:44-0400 Body height 170.2 cm Jake Franco MD Work Phone: [facility] 03-15-2023 15:44-0400 Body mass index (BMI) [Ratio] 24.28 kg/m2 Jake Franco MD Work Phone: [facility] 03-15-2023 15:44-0400 Body weight 70.31 kg Jake Franco MD Work Phone: [facility] 03-15-2023 15:44-0400 Diastolic blood pressure 84 mm[Hg] Jake Franco MD Work Phone: [facility] 03-15-2023 15:44-0400 Heart rate 85 /min Jake Franco MD Work Phone: [facility] 03-15-2023 15:44-0400 Systolic blood pressure 133 mm[Hg] Jake Franco MD Work Phone: [facility] 11-09-2022 13:46-0400 Body height 170.2 cm Jun Jimenez MD Work Phone: [facility] 11-09-2022 13:46-0400 Body mass index (BMI) [Ratio] 25.37 kg/m2 Jun Jimenez MD Work Phone: [facility] 11-09-2022 13:46-0400 Body weight 73.48 kg Jun Jimenez MD Work Phone: [facility] 10-09-2022 11:35-0400 Body height 170.2 cm Jian Manzanares MD Work Phone: [facility] 10-09-2022 11:35-0400 Body mass index (BMI) [Ratio] 25.37 kg/m2 Jian Manzanares MD Work Phone: [facility] 10-09-2022 11:35-0400 Body weight 73.48 kg Jian Manzanares MD Work Phone: [facility] 09-26-2022 13:52-0400 Body height 170.2 cm Jun Jimenez MD Work Phone: [facility] 09-26-2022 13:52-0400 Body mass index (BMI) [Ratio] 25.37 kg/m2 Jun Jimenez MD Work Phone: [facility] 09-26-2022 13:52-0400 Body temperature 97.5 [degF] Jun Jimenez MD Work Phone: [facility] 09-26-2022 13:52-0400 Body weight 73.48 kg Jun Jimenez MD Work Phone: [facility] 09-26-2022 13:52-0400 Diastolic blood pressure 90 mm[Hg] Jun Jimenez MD Work Phone: [facility] 09-26-2022 13:52-0400 Heart rate 83 /min Jun Jimenez MD Work Phone: [facility] 09-26-2022 13:52-0400 Systolic blood pressure 133 mm[Hg] Jun Jimenez MD Work Phone: [facility] 08-16-2022 15:18-0400 Body temperature 97.59 [degF] Jun Jimenez MD Work Phone: [facility] 08-16-2022 15:18-0400 Diastolic blood pressure 79 mm[Hg] Jun Jimenez MD Work Phone: [facility] 08-16-2022 15:18-0400 Heart rate 93 /min Jun Jimenez MD Work Phone: [facility] 08-16-2022 15:18-0400 Respiratory rate 18 /min Jun Jimenez MD Work Phone: [facility] 08-16-2022 15:18-0400 SaO2% (BldA) [Mass fraction] 92 % Jun Jimenez MD Work Phone: [facility] 08-16-2022 15:18-0400 Systolic blood pressure 115 mm[Hg] Jun Jimenez MD Work Phone: [facility] 07-25-2022 10:18-0500 Body height 170.2 cm Jian Mayberry MD Work Phone: [facility] 07-25-2022 10:18-0500 Body mass index (BMI) [Ratio] 25.06 kg/m2 Jian Mayberry MD Work Phone: [facility] [employer] 07-25-2022 10:18-0500 Body weight 72.58 kg Jian Mayberry MD Work Phone: [facility] 06-01-2022 10:03-0500 Body height 170.2 cm Martir Keene MD Work Phone: [facility] 06-01-2022 10:03-0500 Body mass index (BMI) [Ratio] 25.06 kg/m2 Martir Keene MD Work Phone: [facility] 06-01-2022 10:03-0500 Body weight 72.58 kg Martir Keene MD Work Phone: [facility] 06-01-2022 10:03-0500 Diastolic blood pressure 77 mm[Hg] Martir Keene MD Work Phone: [facility] 06-01-2022 10:03-0500 Heart rate 77 /min Martir Keene MD Work Phone: [facility] 06-01-2022 10:03-0500 Systolic blood pressure 125 mm[Hg] Martir Keene MD Work Phone: [facility] Encounters Encounter Date Encounter Type Care Provider Facility Start: 03-05-2025 ambulatory Jorge Demiter Facility :[facility] Start: 01-25-2025 End: 01-25-2025 Patient encounter procedure Jorge Demiter PA -[facility] Work Phone: Start: 01-25-2025 End: 01-25-[address] Martir Keene MD Work Phone: -[facility] Start: 01-25-2025 End: 01-25-2025 ambulatory Jorge Demiter Facility:[facility] Start: 11-30-2024 End: 11-30-2024 Patient encounter procedure Silver Solorzano [facility] -[facility] Work Phone: Start: 11-30-2024 End: 11-30-[address] 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; Gastro-esophageal reflux disease without esophagitis; History of colon polyps Personal history of tobacco use, presenting hazards to health Start: 11-09-2024 End: 02-08-2025 Transcribe Orders Tatiana Santillan Work Phone: [facility] Central Scheduling Comment on above: Other specified dise ases of liver (Primary Dx); 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 Martir eKene MD Work Phone: [facility] Work Phone: Start: 10-07-2024 End: 10-07-2024 Patient encounter procedure Jorge COLEMAN -Laboratory Work Phone: Start: 10-07-2024 End: 10-07-2024 ambulatory Martir Keene Facility:[facility] Start: 09-29-2024 End: 09-29-2024 Patient encounter procedure Jorge COLEMAN -[facility] Work Phone: Start: 09-29-2024 End: 09-29-2024 ambulatory Jorge Stack Facility:[facility] Start: 09-02-2024 End: 09-02-2024 Subsequent hospital visit by physician Martir Keene MD Work Phone: [facility] Comment on above: Encounter for screen ing mammogram for breast cancer Start: 09-02-2024 End: 09-02-2024 ambulatory [facility] Start: 08-10-2024 End: 08-10-2024 Office outpatient visit 25 minutes German Dietz MD Work Phone: [facility] Comment on above: Cervical radiculopat hy (Primary Dx) Start: 08-10-2024 End: 08-10-2024 [facility] Start: 07-31-2024 End: 07-31-2024 Subsequent hospital visit by physician Tatiana Kaplan CNP Work Phone: [facility] Radiology Comment on above: Cervical stenosis of spinal canal Start: 07-31-2024 End: 07-31-2024 [facility] Start: 07-29-2024 End: 07-29-2024 Assay of hemosiderin, quant Martir Keene MD Work Phone: [facility] Start: 07-29-2024 End: 07-29-2024 Patient encounter procedure Martir Keene MD Work Phone: [facility] Comment on above: Routine general medi rosalinda examination at health care facility (Primary Dx); Mixed hyperlipidemia; Diabetic on diet only (CMS/HCC) (HCC); Cervical myelopathy (HCC); Chronic obstructive pulmonary disease, unspecified COPD type (HCC); Anxiety; Encounter for screening mammogram for breast cancer; Personal history of tobacco use, presenting hazards to health; Gait instability; Arthritis, multiple joint involvement; Vaccine refused by patient; Tobacco use disorder Start: 07-29-2024 End: 07-29-2024 ambulatory [facility] Start: 07-29-2024 End: 07-29-2024 Encounter for general adult medical examination without abnormal findings [facility] Start: 06-26-2024 End: 06-29-2024 Refill Martir Keene MD Work Phone: [facility] Comment on above: Hyperlipidemia, unsp ecified hyperlipidemia type Start: 06-13-2024 End: 06-15-2024 ambulatory Veronica Catherine RN [facility] Clinical Communication Start: 06-13-2024 End: 06-15-2024 Patient encounter procedure Veronica Catherine RN [facility] Clinical Communication Start: 06-10-2024 End: 06-12-2024 Refill Martir Keene MD Work Phone: [facility] Start: 06-08-2024 ambulatory [facility] Facility:[facility] Start: 05-28-2024 End: 05-28-2024 ambulatory Tracee COLEMAN Facility:[facility] Start: 05-12-2024 End: 05-12-2024 ambulatory [facility] Start: 05-12-2024 End: 05-12-2024 Subsequent hospital visit by physician Tatiana Kaplan CNP Work Phone: [facility] Radiology Comment on above: Cervical stenosis of spinal canal Start: 05-12-2024 End: 05-12-2024 Telephone encounter Oralia Dupree RN [facility] [place] Start: 05-11-2024 End: 05-11-2024 Postop follow up visit related to original px German Dietz MD Work Phone: [facility] [place] Comment on above: Cervical stenosis of spinal canal (Primary Dx); Dysphagia, oropharyngeal Start: 05-11-2024 End: 05-11-2024 ambulatory [facility] Start: 04-27-2024 End: 04-27-2024 Postop follow up visit related to original px German Dietz MD Work Phone: [facility] [place] Comment on above: Cervical stenosis of spinal canal (Primary Dx) Start: 04-27-2024 End: 04-27-2024 ambulatory [facility] Start: 04-20-2024 End: 04-20-2024 Telephone encounter Oralia Dupree RN [facility] [place] Start: 04-14-2024 End: 04-15-2024 Evaluation and management of inpatient German Dietz MD Work Phone: [facility] Surgical Progressive Care Unit PCU H6 Comment on above: Cervical stenosis of spinal canal (Primary Dx) Start: 04-09-2024 End: 04-09-2024 ambulatory [facility] Start: 04-09-2024 End: 04-09-2024 Encounter for other preprocedural examination GERMAN DIETZ [facility] Start: 03-23-2024 ambulatory Adriana Brewster NATURALIST Facili ty:[facility] Start: 02-25-2024 End: 02-25-2024 Telephone encounter German Dietz MD Work Phone: [facility] [place] Comment on above: Surgery Scheduling Start: 02-24-2024 End: 02-24-2024 Office outpatient new 45 minutes German Dietz MD Work Phone: [facility] Comment on above: Chronic neck pain wi th history of cervical spinal surgery; Cervical radiculopathy; Balance problems Start: 02-24-2024 End: 02-24-2024 ambulatory [facility] Start: 02-19-2024 End: 02-19-2024 Office outpatient visit 25 minutes Jake Franco MD Work Phone: [facility] Comment on above: Chronic neck pain wi th history of cervical spinal surgery (Primary Dx); Cervical radiculopathy; Balance problems Start: 02-19-2024 End: 02-19-2024 ambulatory [facility] Start: 02-14-2024 End: 02-18-2024 Telephone encounter Regina Nielsen RN [facility] Comment on above: Appointment Start: 02-13-2024 End: 02-13-2024 Subsequent hospital visit by physician Jake Franco MD Work Phone: [facility] MRI Comment on above: Chronic neck pain wi th history of cervical spinal surgery; Cervical radiculopathy Start: 02-13-2024 End: 02-13-2024 [facility] Start: 01-31-2024 End: 01-31-2024 Office outpatient visit 25 minutes Jake Franco MD Work Phone: [facility] Comment on above: Numbness and tinglin g in both hands (Primary Dx); Weakness of both hands; Carpal tunnel syndrome, right; Chronic neck pain with history of cervical spinal surgery; Cervical radiculopathy; Rheumatoid arthritis involving multiple sites, unspecified whether rheumatoid factor present ([facility]) Start: 01-31-2024 End: 01-31-2024 [facility] Start: 01-16-2024 End: 01-16-2024 Subsequent hospital visit by physician Jake Franco MD Work Phone: [facility] Comment on above: Bilateral hand pain; Weakness of both hands Start: 01-16-2024 End: 01-16-2024 [facility] Start: 01-10-2024 End: 01-10-2024 Office outpatient visit 25 minutes Jake Franco MD Work Phone: [facility] Comment on above: Bilateral hand pain (Primary Dx); Weakness of both hands; Rheumatoid arthritis involving multiple sites, unspecified whether rheumatoid factor present (HCC) Start: 01-10-2024 End: 01-10-2024 [facility] Start: 12-17-2023 End: 12-17-2023 [facility] Start: 12-17-2023 End: 03-17-2024 Subsequent hospital visit by physician Tuan Lopez Work Phone: [facility] Radiology Comment on above: Pain in left hand; Pain in left wrist Pain in left hand (P rimary Dx); Pain in left wrist Start: 12-03-2023 End: 03-03-2024 Subsequent hospital visit by physician Tuan Lopez Work Phone: [facility] Radiology Comment on above: Pain in right wrist Pain in right wrist (Primary Dx) Start: 12-03-2023 End: 12-03-2023 ambulatory MARTIR KEENE [facility] Start: 10-19-2023 End: 10-19-2023 Subsequent hospital visit by physician [facility] [employer] [facility] Radiology Comment on above: Arrived Start: 10-19-2023 End: 10-19-2023 Emergency department patient visit Chris Bartlett DO Work Phone: [facility] ED Comment on above: Viral illness (Prima ry Dx) Start: 09-13-2023 ambulatory Jonelle Fernandez RN [facility] C linical Communication Start: 09-13-2023 Patient encounter [facility] Start: 09-13-2023 Telephone encounter Martir briscoe MD Work Phone: [facility] Start: 08-23-2023 End: 08-23-2023 Office outpatient visit 15 minutes Martir Keene MD Work Phone: [facility] Comment on above: Tinnitus of both ear s (Primary Dx); Diabetic on diet only ([facility]/HCC) (HCC) Start: 08-09-2023 End: 08-09-2023 Subsequent hospital visit by physician Josie COLEMAN Work Phone: [facility] Radiology Start: 08-09-2023 End: 08-09-2023 Office outpatient visit 10 minutes Jun Jimenez MD Work Phone: [facility] Comment on above: Tear of peroneal ten don, right, sequela (Primary Dx); Osteochondral defect of ankle Start: 08-08-2023 End: 08-08-2023 Subsequent hospital visit by physician Josie COLEMAN Work Phone: [facility] Radiology Comment on above: Tear of peroneal ten don, right, sequela Start: 08-01-2023 End: 08-01-2023 Office outpatient visit 25 minutes Martir Keene MD Work Phone: [facility] Comment on above: COPD with acute exac erbation (HCC) (Primary Dx); Nausea Start: 07-18-2023 Orders Only Josie COLEMAN Work Phone: [facility] Comment on above: Chronic pain of righ t ankle (Primary Dx) Start: 07-01-2023 ambulatory Monalisa Young RN [facility] Clinical Communication Start: 07-01-2023 Patient encounter procedure Monalisa Young RN [facility] Clinical Communication Start: 07-01-2023 End: 07-01-2023 Office outpatient visit 15 minutes Citlali Saunders DO Work Phone: [facility] Comment on above: COVID-19 virus infec tion (Primary Dx) Start: 06-21-2023 Refill Martir Keene MD Work Phone: [facility] Comment on above: Hyperlipidemia, unsp ecified hyperlipidemia type Start: 06-05-2023 Transcribe Orders Tuan Roll ins Work Phone: [facility] Lab Comment on above: Spinal stenosis, lum bar region with neurogenic claudication (Primary Dx) Start: 05-18-2023 Refill Martir Keene MD Work Phone: [facility] Start: 03-15-2023 End: 03-15-2023 Patient encounter procedure Jake Franco MD Work Phone: [facility] Comment on above: Pain of left sacroil iac joint (Primary Dx); Lumbar spondylosis Start: 03-15-2023 Orders Only Josie COLEMAN Work Phone: [facility] Comment on above: Tear of peroneal ten don, right, sequela (Primary Dx) Start: 01-11-2023 Orders Only Josie COLEMAN Work Phone: [facility] Comment on above: Tear of peroneal ten don, right, sequela (Primary Dx) Start: 11-09-2022 End: 11-09-2022 Postop follow up visit related to original px Jun Jimenez MD Work Phone: [facility] Comment on above: Tear of peroneal ten don, right, sequela (Primary Dx) Start: 10-09-2022 End: 10-09-2022 Office outpatient visit 15 minutes Jian Manzanares MD Work Phone: [facility] Comment on above: Right knee pain, uns pecified chronicity (Primary Dx); Medial collateral ligament sprain of knee Start: 10-09-2022 End: 10-09-2022 Subsequent hospital visit by physician Martir Keene MD Work Phone: [facility] X-ray Comment on above: Right knee pain, uns pecified chronicity Start: 10-08-2022 Orders Only Boston Teran Work Phone: [facility] Orthopedic Surg Comment on above: Right knee pain, uns pecified chronicity (Primary Dx) Start: 09-26-2022 End: 09-26-2022 Postop follow up visit related to original px Jun Jimenez MD Work Phone: [facility] Comment on above: Tear of peroneal ten don, right, sequela (Primary Dx) Start: 08-16-2022 End: 08-16-2022 Subsequent hospital visit by physician Jun Jimenez MD Work Phone: [facility] MAIN OR Comment on above: Peroneal tendon tear , right, initial encounter (Primary Dx) Start: 08-13-2022 Telephone encounter Jun Jimenez MD Work Phone: [facility] Comment on above: Other (Clarify order s/) Start: 08-01-2022 ambulatory Josie COLEMAN Work Phone: [facility] Start: 08-01-2022 Telephone encounter Jian Mayberry MD Work Phone: [facility] Clinical Communication Comment on above: Hip Pain Start: 07-25-2022 End: 07-25-2022 Office outpatient visit 25 minutes Jian Mayberry MD Work Phone: [facility] Comment on above: Chronic left SI join t pain (Primary Dx); Left hip pain; Trochanteric bursitis of left hip Start: 07-25-2022 End: 07-25-2022 Subsequent hospital visit by physician Jian Mayberry MD Work Phone: [facility] X-ray Comment on above: Left hip pain Start: 07-23-2022 Orders Only Cornelio Gramajo PA-C Work Phone: [facility] [place] Comment on above: Left hip pain (Prima ry Dx) Start: 06-01-2022 End: 06-01-2022 Assay of hemosiderin, quant Martir Keene MD Work Phone: [facility] Medicine Start: 06-01-2022 End: 06-01-2022 Patient encounter procedure Martir Keene MD Work Phone: [facility] Comment on above: Routine general medi rosalinda examination at health care facility (Primary Dx); COPD, moderate (CMS/HCC) (HCC); Diabetic on diet only (CMS/HCC) (HCC); Mixed hyperlipidemia; Scalp psoriasis; Anxiety Start: 03-30-2022 End: 03-30-2022 [facility] Start: 03-24-2022 End: 03-25-2022 ambulatory FLYNN N [facility] Facility:[facility] Start: 02-19-2022 ambulatory UNKNOWN PROVIDER [facility] Start: 02-19-2022 End: 02-19-2022 Subsequent hospital visit by physician Jake Franco MD Work Phone: [facility] X-Ray Comment on above: Arthritis of right a nkle; Posterior tibial tendon dysfunction (PTTD) of right lower extremity Start: 12-06-2021 ambulatory UNKNOWN PROVIDER [facility] Start: 12-06-2021 End: 12-06-2021 Subsequent hospital visit by physician Akosua Kaplan CNP Work Phone: [facility] Comment on above: Left upper quadrant pain; Left lower quadrant pain; Generalized abdominal pain; Left upper quadrant abdominal pain; Left lower quadrant abdominal pain Start: 09-13-2021 ambulatory UNKNOWN PROVIDER [facility] Start: 09-13-2021 End: 09-13-2021 Subsequent hospital visit by physician Cornelio Gramajo PA-C Work Phone: [facility] Comment on above: Hip pain Start: 08-24-2021 ambulatory UNKNOWN PROVIDER [facility] Start: 08-09-2021 ambulatory UNKNOWN PROVIDER [facility] Start: 08-09-2021 End: 08-09-2021 Subsequent hospital visit by physician Martir Keene MD Work Phone: [facility] Comment on above: Arrived Start: 06-27-2021 ambulatory UNKNOWN PROVIDER [facility] Start: 08-05-2020 End: 08-05-2020 Subsequent hospital visit by physician Martir Keene Work Phone: [facility] Comment on above: Arrived Start: 03-29-2020 End: 03-29-2020 Subsequent hospital visit by physician Jian Manzanares Work Phone: [facility] Start: 11-11-2019 End: 11-11-2019 Subsequent hospital visit by physician Clifton Chaney Work Phone: [facility] Start: 07-22-2019 End: 07-22-2019 Subsequent hospital visit by physician Anthony White Work Phone: [facility] Comment on above: Cervical myelopathy (HCC) Start: 04-23-2019 End: 04-23-2019 Subsequent hospital visit by physician Anthony White Work Phone: [facility] Start: 03-30-2019 End: 03-30-2019 Subsequent hospital visit by physician Martir Keene Work Phone: [facility] Comment on above: Encounter for screen ing mammogram for breast cancer Start: 01-29-2019 End: 01-29-2019 Subsequent hospital visit by physician Alan Glasgow Work Phone: [facility] Comment on above: Personal history of nicotine dependence ; COPD, moderate (HCC) Start: 08-18-2017 Emergency department patient visit Shankar Felipe [facility] Start: 05-06-2017 Ambulatory MONIK WARD [facility] Start: 01-06-2013 Conversion Encounter Izzy BESSC Work Phone: [facility] Legacy Dept Start: 01-06-2013 Legacy Encounter Izzy hernandez PA-C Work Phone: [facility] Procedures Date Procedure Procedure Detail Performing Clinician Start: 11-03-2024 Comprehensive metabo lic panel Tatiana Santillan Work Phone: Start: 09-02-2024 Screening digital br east tomosynthesis bi Martir Keene MD Work Phone: Start: 07-29-2024 Urine albumin quantitative Martir Keene MD Work Phone: Start: 07-29-2024 Hemoglobin glycosyla rashaun a1c Martir Keene MD Work Phone: Start: 04-15-2024 Basic metabolic pane l calcium total Tatiana Adam OPERATIONS AGENT - ELECTRIC CELL TENDER Work Phone: Start: 04-14-2024 FL GUIDANCE OR USE O NLY - NON-RESULTABLE German Dietz MD Work Phone: Start: 04-14-2024 End: 04-14-2024 Arthrd ant interbody decompress cervical belw c2 German Dietz MD Work Phone: Start: 01-16-2024 NERVE CONDUCTION JULIAN T WITH EMG Jake Franco MD Work Phone: Start: 10-19-2023 Ecg routine ecg w/le ast 12 lds trcg only w/o i&r Chris G Nesheim DO Work Phone: Start: 10-19-2023 Radiologic exam ches t single view Chris G Nesheim DO Work Phone: Start: 10-19-2023 SARS-COV-2, FLU A/B, AND RSV COMBO Chris G Nesheim DO Work Phone: Start: 10-19-2023 Comprehensive metabo lic panel Chris G Nesheim DO Work Phone: Start: 08-27-2023 Lipid 1996 panel - S geeta or Plasma Tuan Viridiana Work Phone: Start: 10-09-2022 Radiologic examinati on knee 1/2 views Boston Mars PA-C Work Phone: Start: 07-25-2022 Radex hip unilateral with pelvis 2-3 views Cornelio Gramajo PA-C Work Phone: Start: 07-10-2022 Lipid 1996 panel - S geeta or Plasma Jun Jimenez MD Work Phone: Start: 06-01-2022 Hemoglobin glycosyla rashaun a1c Martir Keene MD Work Phone: Start: 06-01-2022 Adult depression screening assessment Boston Mars PA-C Work Phone: Start: 02-19-2022 Radex ankle complete minimum 3 views Jake Franco MD Work Phone: Start: 12-06-2021 Ct abdomen & pelvis w/o contrast material Akosua Reyes APRN - ELECTRIC CELL TENDER Work Phone: Start: 09-13-2021 Radex hip unilateral with pelvis 2-3 views Cornelio Gramajo PA-C Work Phone: Start: 08-24-2021 Mammography Jun neal MD Work Phone: Start: 06-06-2021 Lipid 1996 panel - S geeta or Plasma Martir Keene MD Work Phone: Start: 08-05-2020 Mammography Martir briscoe MD Work Phone: Start: 03-29-2020 Radex shoulder compl ete minimum 2 views Jian Manzanares Work Phone: Start: 11-11-2019 Radiologic exam knee complete 4/more views Clifton Chaney Work Phone: Start: 11-11-2019 XR ANKLE STANDARD BILATERAL Clifton Chaney Work Phone: Start: 07-22-2019 Mri spinal canal cer vical w/o contrast matrl Anthony White Work Phone: Start: 03-30-2019 Screening digital br east tomosynthesis bi Martir Keene Work Phone: Start: 01-29-2019 Ldct for lung ca screen Alan Pee Work Phone: Start: 04-30-2017 Colonoscopy Martir briscoe MD Work Phone: Start: 01-06-2013 COLONOSCOPY W/ OR W/ O BIOPSY Izzy Ty PA-C Work Phone: Vaccine refused by patient Vaccine refused by patient Martir Keene MD Work Phone: Plan of Treatment Date Care Activity Detail Author Start: 04-30-2027 Colon cancer screen colonoscopy Colon cancer screen colonoscopy [place] Start: 04-30-2027 Screening for malignant neoplasm of colon [facility] Start: 11-10-2025 Screening for malignant neoplasm of lung Lung Cancer Screening [facility] Start: 11-03-2025 Diabetes: Estimated Glomerular Filtration Rate for [facility] Diabetes: Estimated Glomerular Filtration Rate for [facility] Start: 07-30-2025 End: 07-30-2025 Patient encounter procedure 07/30/2025 2:00 PM EST Office Visit [facility] [address] [place] [id number] Martir Keene MD [address] [place] [address] [facility] Start: 07-29-2025 Diabetes: Urine Albumin-Creatinine Ratio for [facility] Diabetes: Urine Albumin-Creatinine Ratio for [facility] Start: 04-15-2025 Diabetes: Estimated Glomerular Filtration Rate for [facility] Diabetes: Estimated Glomerular Filtration Rate for Kidney Health [facility] Start: 02-01-2025 COVID-19 Vaccine () COVID-19 Vaccine () [facility] Start: 02-01-2025 Influenza vaccination [facility] Start: 01-26-2025 Depression Monitoring Depression Monitoring [facility] Start: 10-18-2024 Diabetes: Estimated Glomerular Filtration Rate for Kidney Health Diabetes: Estimated Glomerular Filtration Rate for Kidney Health [facility] Start: 09-02-2024 End: 09-02-2024 Patient encounter procedure 09/02/2024 1:40 PM EDT Appointment [address] [place] [phone] Martir Ke[place] MD [facility] [address] [place] [address] [facility] Start: 08-26-2024 Diabetes: Estimated Glomerular Filtration Rate for Kidney Health Diabetes: Estimated Glomerular Filtration Rate for Kidney Health [facility] Start: 08-26-2024 Diabetes: Urine Albumin-Creatinine Ratio for Kidney Health Diabetes: Urine Albumin-Creatinine Ratio for Kidney Health [facility] Start: 08-26-2024 Hemoglobin A1c measurement Diabetes: Hemoglobin A1C [facility] Start: 08-26-2024 Lipid panel Lipid Panel [facility] Start: 08-10-2024 End: 08-10-2024 Patient encounter procedure 08/10/2024 1:00 PM EDT Office Visit [facility] [address] [address] German Dietz MD [address] [place] [phone] [facility] [place] Start: 08-05-2024 End: 08-05-2024 Patient encounter procedure 08/05/2024 1:45 PM EST Office Visit [facility] [place] [address] [place] [address] German Dietz MD [address] [place] [address] [facility] [place] Start: 07-29-2024 End: 07-29-2025 CBC panel - Blood by Automated count CBC Lab Routine Mixed hyperlipidemia Diabetic on diet only (CMS/HCC) (HCC) Expected: 07/29/2024 (Approximate), Expires: 07/29/2025 [facility] Work Phone: Comment on above: Expected: 07/29/2024 (Approximate), Expi res: 07/29/2025 Start: 07-29-2024 End: 07-29-2025 Comprehensive metabolic 1998 panel - Serum or Plasma Comprehensive metabolic panel Lab Routine Mixed hyperlipidemia Diabetic on diet only (CMS/HCC) (HCC) Expected: 07/29/2024 (Approximate), Expires: 07/29/2025 [employer] Comment on above: Expected: 07/29/2024 (Approximate), Expi res: 07/29/2025 Start: 07-29-2024 End: 07-29-2025 CT Chest for screening WO contrast CT lung screening low dose Imaging Routine Personal history of tobacco use, presenting hazards to health Expected: 07/29/2024, Expires: 07/29/2025 [employer] Comment on above: Expected: 07/29/2024, Expires: Start: 07-29-2024 End: 09-26-2025 DBT Breast - bilateral screening Bilateral screening mammogram with tomosynthesis Imaging Routine Encounter for screening mammogram for breast cancer Expected: 07/29/2024, Expires: 09/26/2025 [employer] Comment on above: Expected: 07/29/2024, Expires: Start: 07-29-2024 End: 07-29-2025 Lipid 1996 panel - Serum or Plasma Lipid panel Lab Routine Mixed hyperlipidemia Diabetic on diet only (CMS/HCC) (HCC) Expected: 07/29/2024 (Approximate), Expires: 07/29/2025 [facility] [employer] Comment on above: Expected: 07/29/2024 (Approximate), Expi res: 07/29/2025 Start: 07-08-2024 End: 07-08-2024 Patient encounter procedure 07/08/2024 1:00 PM EST Office Visit [facility] [address] [place] [phone] Martir Keene MD [address] [place] [address] [place] [address] [facility] Start: 06-03-2024 Medicare Advantage Annual Wellness Visit Medicare Advantage Annual Wellness Visit [facility] Start: 05-11-2024 End: 05-11-2024 Patient encounter procedure 05/11/2024 2:20 PM EST Office Visit [facility] [address] [place] [phone] Martir Keene MD [address] [place], [place] [phone] [facility] Start: 05-11-2024 End: 05-11-2025 XR Cervical spine 2 or 3 Views XR cervical spine 2 or 3 views Imaging Routine Cervical stenosis of spinal canal Expected: 05/11/2024, Expires: 05/11/2025 [facility] [employer] Work Phone: Comment on above: Expected: 05/11/2024, Expires: Start: 2024 RSV Immunization for Adults (1 - 1-dose 75+ series) RSV Immunization for Adults (1 - 1-dose 75+ series) [facility] Start: 04-27-2024 End: 04-27-2025 XR Cervical spine 2 or 3 Views XR cervical spine 2 or 3 views Imaging Routine Cervical stenosis of spinal canal Expected: 04/27/2024, Expires: 04/27/2025 [facility] [employer] Work Phone: Comment on above: Expected: 04/27/2024, Expires: Start: 04-27-2024 End: 04-27-2024 Patient encounter procedure 04/27/2024 1:30 PM EST Office Visit [facility] [address] [phone] German Dietz MD [address] [place] [phone] [facility] [place] Start: 04-14-2024 End: 04-14-2024 Admission to same day surgery center 04/14/2024 7:30 AM EST - 04/14/2024 9:30 AM EST Surgery [facility] MAIN OR [address] [place] [address] German Dietz MD [address] [place] [phone] CERVICAL 4-5 ANTERIOR CERVICAL DECOMPRESSION, FUSION, REMOVAL OF HARDWARE CERVICAL 5-7 [84946 (CPT )] [facility] OR Comment on above: CERVICAL 4-5 ANTERIOR CERVICAL DECOMPRES BRUNO, FUSION, REMOVAL OF HARDWARE CERVICAL 5-7 [56663 (CPT )] Start: 04-14-2024 End: 04-14-2024 Arthrd ant interbody decompress cervical belw c2 ARTHRODESIS ANTERIOR INTERBODY DISCECTOMY DECOMPRESSION SPINAL CORD CERVICAL BELOW C2 Radiculopathy, cervical region Cervicalgia 04/14/2024 7:30 AM EST [facility] Operating Room Start: 04-14-2024 Subsequent hospital visit by physician 04/14/2024 7:30 AM EST Hospital Encounter [facility] OR [address] [facility] [place] [address] German Dietz MD [address] [place] [phone] [facility] Start: 04-07-2024 End: 04-07-2024 Admission to establishment 04/07/2024 11:30 AM EST Pre-Admission Testing [facility] Pre-Admit Testing [address] [place] [address] [facility] Pre-Admit Testing Start: 02-26-2024 End: 02-25-2025 Nicotine, Blood Nicotine, Blood Lab Routine History of cigarette smoking Expected: 02/26/2024 (Approximate), Expires: 02/25/2025 [facility] Work Phone: Comment on above: Expected: 02/26/2024 (Approximate), Expi res: 02/25/2025 Start: 02-24-2024 End: 02-24-2024 Patient encounter procedure 02/24/2024 3:30 PM EDT Office Visit [facility] [address] [phone] German Dietz MD [address] [place] [phone] [facility] Start: 02-19-2024 End: 02-19-2024 Patient encounter procedure 02/19/2024 10:00 AM EDT Office Visit [facility] [address] [place] [phone] Jake Franco MD [address] [place] [address] [facility] Start: 02-02-2024 COVID-19 Vaccine ( season) COVID-19 Vaccine ( season) [facility] Start: 02-02-2024 COVID-19 Vaccine ( season) COVID-19 Vaccine ( season) [facility] Start: 02-02-2024 Influenza vaccination [facility] Start: 01-31-2024 End: 01-30-2025 MR Cervical spine WO and W contrast IV MR cervical spine w and wo contrast Imaging Routine Chronic neck pain with history of cervical spinal surgery Cervical radiculopathy Expected: 01/31/2024, Expires: 01/30/2025 [facility] Work Phone: Comment on above: Expected: 01/31/2024, Expires: Start: 01-24-2024 End: 01-24-2024 Patient encounter procedure 01/24/2024 10:40 AM EDT Office Visit [facility] [address] [place] [address] [address] [place] [address] Jake Franco MD [address] [place] [address] [facility] Start: 01-10-2024 End: 01-09-2025 C reactive protein [Mass/volume] in Serum or Plasma C-reactive protein Lab Routine Bilateral hand pain Rheumatoid arthritis involving multiple sites, unspecified whether rheumatoid factor present (HCC) Expected: 01/10/2024 (Approximate), Expires: 01/09/2025 [facility] [employer] Comment on above: Expected: 01/10/2024 (Approximate), Expi res: 01/09/2025 Start: 01-10-2024 End: 01-09-2025 Cyclic citrul peptide antibody, IgG Cyclic citrul peptide antibody, IgG Lab Routine Bilateral hand pain Rheumatoid arthritis involving multiple sites, unspecified whether rheumatoid factor present (HCC) Expected: 01/10/2024 (Approximate), Expires: 01/09/2025 [facility] [employer] Comment on above: Expected: 01/10/2024 (Approximate), Expi res: 01/09/2025 Start: 01-10-2024 End: 01-09-2025 Erythrocyte sedimentation rate Sedimentation rate, automated Lab Routine Bilateral hand pain Rheumatoid arthritis involving multiple sites, unspecified whether rheumatoid factor present (HCC) Expected: 01/10/2024 (Approximate), Expires: [facility] above: Expected: 01/10/2024 (Approximate), Expi res: 01/09/2025 Start: 01-10-2024 End: 01-09-2025 NERVE CONDUCTION TEST WITH [facility] NERVE CONDUCTION TEST WITH [facility] Neurology Routine Bilateral hand pain Weakness of both hands Expected: 01/10/2024 (Approximate), Expires: 01/09/2025 [facility] Comment on above: Expected: 01/10/2024 (Approximate), Expi res: 01/09/2025 Start: 01-10-2024 End: 01-09-2025 Nuclear Ab [Titer] in Serum by Immunofluorescence MAX Lab Routine Bilateral hand pain Rheumatoid arthritis involving multiple sites, unspecified whether rheumatoid factor present (HCC) Expected: 01/10/2024 (Approximate), Expires: 01/09/2025 [facility] Comment on above: Expected: 01/10/2024 (Approximate), Expi res: 01/09/2025 Start: 01-10-2024 End: 01-09-2025 Rheumatoid factor [Units/volume] in Serum or Plasma Rheumatoid factor Lab Routine Bilateral hand pain Rheumatoid arthritis involving multiple sites, unspecified whether rheumatoid factor present (HCC) Expected: 01/10/2024 (Approximate), Expires: 01/09/2025 [facility] [employer] [facility] Work Phone: Comment on above: Expected: 01/10/2024 (Approximate), Expi res: 01/09/2025 Start: 08-25-2023 Screening for malignant neoplasm of breast Breast cancer screen [facility] Start: 08-23-2023 End: 08-22-2024 CBC panel - Blood by Automated count CBC Lab Routine Diabetic on diet only (CMS/HCC) (HCC) Expected: 08/23/2023 (Approximate), Expires: 08/22/2024 [facility] [employer] [facility] Work Phone: Comment on above: Expected: 08/23/2023 (Approximate), Expi res: 08/22/2024 Start: 08-23-2023 End: 08-22-2024 Comprehensive metabolic 1998 panel - Serum or Plasma Comprehensive metabolic panel Lab Routine Diabetic on diet only (CMS/HCC) (HCC) Expected: 08/23/2023 (Approximate), Expires: 08/22/2024 [facility] Comment on above: Expected: 08/23/2023 (Approximate), Expi res: 08/22/2024 Start: 08-23-2023 End: 08-22-2024 Hemoglobin A1c measurement Hemoglobin A1c Lab Routine Diabetic on diet only (CMS/HCC) (HCC) Expected: 08/23/2023 (Approximate), Expires: 08/22/2024 [facility] [employer] Comment on above: Expected: 08/23/2023 (Approximate), Expi res: 08/22/2024 Start: 08-23-2023 End: 08-22-2024 Lipid 1996 panel - Serum or Plasma Lipid panel Lab Routine Diabetic on diet only (CMS/HCC) ([facility]) Expected: 08/23/2023 (Approximate), Expires: 08/22/2024 [facility] Comment on above: Expected: 08/23/2023 (Approximate), Expi res: 08/22/2024 Start: 08-23-2023 End: 08-22-2024 Microalbumin/Creatinine panel in random Urine Microalbumin / creatinine urine ratio Lab Routine Diabetic on diet only ([facility]/HCC) ([facility]) Expected: 08/23/2023 (Approximate), Expires: 08/22/2024 [facility] Comment on above: Expected: 08/23/2023 (Approximate), Expi res: 08/22/2024 Start: 08-09-2023 End: 07-18-2024 XR Ankle - right 3 Views XR ankle 3+ views right Imaging Routine Chronic pain of right ankle Expected: 08/09/2023, Expires: 07/18/2024 [facility] [employer] [facility] Work Phone: Comment on above: Expected: 08/09/2023, Expires: Start: 08-09-2023 End: 08-09-2023 Patient encounter procedure 08/09/2023 1:45 PM EST Office Visit [facility] [address] [place] [address] Jun Jimenez MD [address] [facility] [address] [place] [address] [facility] Start: 08-09-2023 End: 08-09-2023 Documentation procedure 08/09/2023 1:15 PM EST Documentation [facility] [address] [place] [address] [facility] Start: 08-09-2023 Subsequent hospital visit by physician 08/09/2023 12:45 PM EST Hospital Encounter [facility] Radiology [address] [place] [phone] Josie Hairston PA [address] [facility] [address] [place] [id number] [facility] Radiology Start: 07-10-2023 Lipid panel Lipid Panel [facility] Start: 07-02-2023 End: 07-02-2023 Patient encounter procedure 07/02/2023 2:00 PM EST Office Visit [facility] [address] [facility] [address] [place] [phone] Martir [place] MD [address] [facility] [address] [place] [address] [facility] Start: 06-05-2023 End: 06-05-2023 Patient encounter procedure [facility] Start: 06-03-2023 Medicare Advantage Annual Wellness Visit Medicare Advantage Annual Wellness Visit [facility] Start: 06-01-2023 Depression Screening Depression Screening [facility] Start: 06-01-2023 Hemoglobin A1c measurement Diabetes: Hemoglobin A1C [facility] Start: 04-17-2023 End: 03-15-2024 XR Ankle - right 3 Views XR ankle 3+ views right Imaging Routine Tear of peroneal tendon, right, sequela Expected: 04/17/2023, Expires: 03/15/2024 [facility] Work Phone: Comment on above: Expected: 04/17/2023, Expires: Start: 04-17-2023 End: 04-17-2023 Patient encounter procedure 04/17/2023 1:00 PM EST Office Visit [facility] [address] [facility] [address] [place] [phone] Jun Jimenez MD [address] [facility] [address] [place], [place] [phone] [facility] Start: 04-05-2023 End: 04-05-2023 Patient encounter procedure 04/05/2023 2:30 PM EDT Office Visit [facility] [address] [facility] [address] [place] [address] Jake Franco MD [address] [place] [address] [facility] Start: 03-27-2023 Screening for malignant neoplasm of colon [facility] Start: 02-01-2023 COVID-19 Vaccine ( season) COVID-19 Vaccine () [facility] Start: 02-01-2023 Influenza vaccination [facility] Start: 01-16-2023 End: 01-12-2024 XR Ankle - right 3 Views XR ankle 3+ views right Imaging Routine Tear of peroneal tendon, right, sequela Expected: 01/16/2023, Expires: 01/12/2024 [facility] Work Phone: Comment on above: Expected: 01/16/2023, Expires: Start: 01-16-2023 End: 01-16-2023 Patient encounter procedure 01/16/2023 1:45 PM EDT Office Visit [facility] [address] [facility] [address] [place] [address] Jun Jimenez MD [address] [facility] [address] [place] [address] [facility] Start: 11-30-2022 Depression Monitoring Depression Monitoring [facility] Start: 11-13-2022 End: 11-13-2022 Patient encounter procedure [facility] Start: 11-09-2022 Depression Screen Depression Screen [facility] Start: 11-09-2022 End: 11-09-2022 Patient encounter procedure 11/09/2022 Office Visit Orthopedic Surgery Jun Jimenez MD [address] [facility] [address] [place] [address] [facility] Start: 10-12-2022 End: 10-12-2022 Patient encounter procedure 10/12/2022 Office Visit Sports Medicine Jake Franco MD [address] [place] [address] [facility] Start: 10-09-2022 End: 10-09-2023 XR Knee - bilateral 2 Views XR knee 1-2 views bilateral Imaging Routine Right knee pain, unspecified chronicity Expected: 10/09/2022 (Approximate), Expires: 10/09/2023 [facility] Comment on above: Expected: 10/09/2022 (Approximate), Expi res: 10/09/2023 Start: 10-09-2022 End: 10-09-2022 Patient encounter procedure 10/09/2022 Office Visit Orthopedic Surgery Jian Manzanares MD [address] [facility] [address] [place] [address] [facility] Start: 10-08-2022 End: 10-09-2023 XR Knee - right 1 or 2 Views XR knee 1 or 2 views right Imaging Routine Right knee pain, unspecified chronicity Expected: 10/08/2022, Expires: 10/09/2023 [facility] Work Phone: Comment on above: Expected: 10/08/2022, Expires: Start: 09-07-2022 End: 09-07-2022 Patient encounter procedure 09/07/2022 Office Visit Sports Medicine Jake Franco MD [address] [place], [place] [phone] [facility] Start: 08-31-2022 End: 08-31-2022 Patient encounter procedure 08/31/2022 Office Visit Orthopedic Surgery Jun Jimenez MD [address] [facility] [address] [place], [place] [phone] [facility] [place] Start: 08-30-2022 Diabetic foot examination Diabetic foot exam [facility] Start: 08-30-2022 Hemoglobin A1c measurement [facility] Start: 08-29-2022 End: 08-29-2022 Patient encounter procedure 08/29/2022 Office Visit Orthopedic Surgery Josie Hairston PA [address] [facility] [address] [place], [place] [phone] [facility] Start: 08-24-2022 Screening for malignant neoplasm of breast Mammogram [facility] Start: 08-16-2022 End: 08-16-2022 Admission to same day surgery center 08/16/2022 Surgery Procedural Jun [place]enez MD [address] [facility] [address] [place] [address] Right repair peroneal tendon, and ankle arthroscopic debridement talar osteochondral lesion [54656 (CPT )] [facility] MAIN OR Comment on above: Right repair peroneal tendon, and ankle arthroscopic debridement talar osteochondral lesion [05877 (CPT )] Start: 08-16-2022 End: 08-16-2022 Arthrs ankle exc ostchndrl dfct w/drlg dfct ARTHROSCOPY ANKLE EXCISION 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 specified acquired deformities of musculoskeletal system 08/16/2022 11:30 AM EDT [facility] Operating Room Start: 08-16-2022 End: 08-16-2022 Repair flexor tendon leg primary w/o graft each REPAIR FLEXOR TENDON LEG PRIMARY Other specified acquired deformities of musculoskeletal system 08/16/2022 11:30 AM EDT [facility] Operating Room Start: 08-16-2022 Subsequent hospital visit by physician 08/16/2022 Hospital Encounter Procedural Jun Jimenez MD [address] [facility] [address] [place] [address] [facility] MAIN OR Start: 08-09-2022 End: 08-09-2022 Admission to establishment 08/09/2022 Pre-Admission Testing Pre-Admission Testing Jun Jimenez MD [address] [facility] [address] [place] [address] [facility] Pre-Admit Testing Start: 08-05-2022 Screening for malignant neoplasm of breast Breast cancer screen [facility] Start: 07-25-2022 End: 07-25-2022 Patient encounter procedure 07/25/2022 Office Visit Orthopedic Surgery Jian Mayberry MD [address] [facility] [address] [place] [address] [facility] [place] Start: 07-23-2022 End: 07-23-2023 XR Hip - left 3 Views XR hip left 2 or 3 views Imaging Routine Left hip pain Expected: 07/23/2022, Expires: 07/23/2023 [facility] [employer] Work Phone: Comment on above: Expected: 07/23/2022, Expires: Start: 06-22-2022 End: 06-22-2022 Patient encounter procedure 06/22/2022 Office Visit Orthopedic Surgery Jun Jimenez MD [address] [facility] [address] [place] [address] [facility] [place] Start: 06-06-2022 Lipid panel Lipid Panel [facility] Start: 06-01-2022 End: 06-01-2023 CBC panel - Blood by Automated count CBC Lab Routine Diabetic on diet only (CMS/HCC) (HCC) Expected: 06/01/2022 (Approximate), Expires: 06/01/2023 [facility] [employer] Work Phone: Comment on above: Expected: 06/01/2022 (Approximate), Expi res: 06/01/2023 Start: 06-01-2022 End: 06-01-2023 Comprehensive metabolic 1998 panel - Serum or Plasma Comprehensive metabolic panel Lab Routine Diabetic on diet only (CMS/HCC) (HCC) Expected: 06/01/2022 (Approximate), Expires: 06/01/2023 [facility] Comment on above: Expected: 06/01/2022 (Approximate), Expi res: 06/01/2023 Start: 06-01-2022 End: 06-01-2023 Lipid 1996 panel - Serum or Plasma Lipid panel Lab Routine Diabetic on diet only (CMS/HCC) (HCC) Expected: 06/01/2022 (Approximate), Expires: 06/01/2023 [facility] Comment on above: Expected: 06/01/2022 (Approximate), Expi res: 06/01/2023 Start: 05-21-2022 End: 05-21-2022 Patient encounter procedure 05/21/2022 Office Visit Family Medicine Martir [place] MD [address] [place] [id number] [facility] Start: 05-19-2022 Annual Wellness Visit (AWV) Annual Wellness Visit (AWV) [facility] Start: 05-18-2022 Depression Screen Depression Screen [facility] Start: 05-18-2022 Hemoglobin A1c measurement A1C test (Diabetic or Prediabetic) [facility] Start: 05-18-2022 Urine screening for protein [facility] Start: 04-04-2022 End: 04-04-2022 Patient encounter procedure 04/04/2022 Office Visit Sports Medicine Jake Franco MD [address] [place] [address] [facility] [place] Start: 03-27-2022 Creatinine measurement Creatinine monitoring [facility] Start: 03-27-2022 Lipid panel [facility] Start: 03-27-2022 Potassium monitoring Potassium monitoring [facility] Start: 02-01-2022 Influenza vaccination [facility] Start: 10-20-2021 COVID-19 Vaccine (3 - Booster for Genaro series) COVID-19 Vaccine (3 - Booster for Genaro series) [facility] Start: 08-17-2021 COVID-19 Vaccine (3 - Booster for Genaro series) COVID-19 Vaccine (3 - Booster for Genaro series) [facility] Start: 08-05-2021 Screening for malignant neoplasm of breast Mammogram [facility] Start: 08-03-2021 Lipid panel Lipid screen [facility] Work Phone: Start: 05-18-2021 Annual Wellness Visit (AWV) Annual Wellness Visit (AWV) [facility] Work Phone: Start: 05-18-2021 End: 05-18-2021 Office Visit 05/18/2021 Office Visit Family Medicine Martir [place] MD [facility] [address] [place] [address] [facility] Start: 05-17-2021 Diabetic microalbuminuria test Diabetic [facility]albuminuria test [facility] Work Phone: Start: 05-17-2021 HbA1c (Bld) [Mass fraction] A1C test (Diabetic or Prediabetic) [facility] Work Phone: Start: 03-30-2021 Breast cancer screen Breast cancer screen [place], [place] Start: 03-30-2021 Screening for malignant neoplasm of breast Breast cancer screen [place], [place] Start: 02-01-2021 Influenza vaccination Flu vaccine (#1) [facility] Start: 04-21-2020 End: 04-21-2020 Office Visit 04/21/2020 Office Visit Family Medicine Martir [place] MD [facility] [address] [place], [place] [phone] [facility] Start: 02-02-2020 Influenza vaccination Flu vaccine (#1) [place], [place] Start: 02-01-2020 End: 02-01-2020 Office Visit [facility] Start: 01-29-2020 [object Object] Diabetic foot exam [place], [place] Start: 01-29-2020 Annual Wellness Visit (AWV) Annual Wellness Visit (AWV) [place] Start: 01-29-2020 Diabetic foot examination Diabetic foot exam [facility] Start: 01-28-2020 Annual Wellness Visit (AWV) Annual Wellness Visit (AWV) [place] Start: 09-18-2019 DTaP/Tdap/Td vaccine (1 - Tdap) DTaP/Tdap/Td vaccine (1 - Tdap) [place] Comment on above: Postponed from 1968 (Insurance / F inancial) Postponed from 05/09 (Insurance / Financial) Start: 09-06-2019 A1C test (Diabetic or Prediabetic) A1C test (Diabetic or Prediabetic) [place] Start: 09-06-2019 Diabetic microalbuminuria test Diabetic microalbuminuria test [place] Start: 09-06-2019 HbA1c (Bld) [Mass fraction] A1C test (Diabetic or Prediabetic) [place] Start: 09-06-2019 Lipid panel Lipid [place] Start: 09-06-2019 Lipid screen Lipid [place] Start: 08-13-2019 End: 08-13-2019 Office Visit 08/13/2019 Office Visit Orthopedic Surgery Anthony White MD 1 [facility] [address] [place] [address] [phone] [facility] [place] Start: 06-04-2019 End: 06-04-2019 Office Visit 06/04/2019 Office Visit Orthopedic Surgery Anthony White MD 1 [facility] [address] [place] [address] [phone] [facility] [place] Start: 03-30-2019 End: 03-30-2019 Appointment 03/30/2019 Appointment Radiology [facility] Start: 02-01-2019 Influenza vaccination Flu vaccine (#1) [place] Start: 11-20-2018 Annual Wellness Visit (AWV) Annual Wellness Visit (AWV) [place] Start: 11-15-2018 Breast cancer screen Breast cancer screen [place] Start: 09-28-2017 Pneumococcal 65+ years Vaccine (2 of 2 - PPSV23) Pneumococcal 65+ years Vaccine (2 of 2 - PPSV23) [place] Start: 2009 Hepatitis B Vaccines (1 of 3 - Risk 3-dose series) Hepatitis B Vaccines (1 of 3 - Risk 3-dose series) [facility] Start: 2009 RSV Immunization aged 60 or older (1 - 1-dose 60+ series) RSV Immunization aged 60 or older (1 - 1-dose 60+ series) [facility] Start: 2009 RSV Immunization for Adults (1 - Risk 60-74 years 1-dose series) RSV Immunization for Adults (1 - Risk 60-74 years 1-dose series) [facility] Start: 1999 Screening for malignant neoplasm of lung Lung Cancer Screening [facility] Start: 1999 Shingles Vaccine (1 of 2) Shingles Vaccine (1 of 2) [facility] Start: 1999 Zoster Vaccines (1 of 2) Zoster Vaccines (1 of 2) [facility] Start: 1994 Screening for malignant neoplasm of colon [facility] Start: 1968 DTaP/Tdap/Td vaccine (1 - Tdap) DTaP/Tdap/Td vaccine (1 - Tdap) [facility] Start: 1968 DTaP/Tdap/Td Vaccines (1 - Tdap) DTaP/Tdap/Td Vaccines (1 - Tdap) [facility] Start: 1968 Hepatitis A Vaccines (1 of 2 - Risk 2-dose series) Hepatitis A Vaccines (1 of 2 - Risk 2-dose series) [facility] Start: 1968 Hepatitis B vaccine (1 of 3 - Risk 3-dose series) Hepatitis B vaccine (1 of 3 - Risk 3-dose series) [place] Start: 1967 Diabetic retinal exam Diabetic retinal exam [facility] Start: 1967 Hepatitis C screening Hepatitis C Screening [facility] Start: 1965 COVID-19 Vaccine (1 of 2) COVID-19 Vaccine (1 of 2) [facility] Work Phone: Start: 1959 Diabetic foot examination Diabetes: Foot Exam [facility] Start: 1959 Diabetic retinal exam Diabetic retinal exam [place], [place] Start: 1959 Glaucoma screening Diabetes: Retinopathy Screening [facility] Start: 1959 Preventive dental service Diabetes: Dental Exam [facility] Start: 1950 Hepatitis A Vaccines (1 of 2 - Risk 2-dose series) Hepatitis A Vaccines (1 of 2 - Risk 2-dose series) [facility] Start: 1949 Medicare Advantage Annual Wellness Visit (AWV) Medicare Advantage Annual Wellness Visit (AWV) [facility] Start: 1949 Screening for malignant neoplasm of colon [facility] Start: 1949 Screening for osteoporosis Bone Density Scan [facility] [employer] Basic metabolic 2008 panel with ionized calcium - Serum or Plasma [facility] End: 12-06-2021 CT ABDOMEN PELVIS WO CONTRAST Additional Contrast? None CT ABDOMEN PELVIS WO CONTRAST Additional Contrast? None Imaging STAT Generalized abdominal pain Left upper quadrant abdominal pain Left lower quadrant abdominal pain 1 Occurrences starting 12/06/2021 until 12/06/2021 [employer] Work Phone: Comment on above: 1 Occurrences starting 12/06/2021 until 12/06/2021 End: 11-10-2024 CT Chest for screening WO contrast [facility] [employer] Work Phone: Comment on above: Once for 1 Occurrences starting 11/11/19 25 until 11/10/2024 Hemoglobin A1c/Hemoglobin.total in Blood [facility] Magnesium measurement [facility] End: 02-13-2024 MR Cervical spine WO and W contrast IV [facility] [employer] Work Phone: Comment on above: Once for 1 Occurrences starting 02/13/20 24 until 02/13/2024 OUTSIDE PROCEDURE SCAN OUTSIDE P ROCEDURE SCAN Procedures Ordered: 08/08/2023 [facility] Comment on above: Ordered: 08/08/2023 OUTSIDE PROCEDURE SCAN OUTSIDE P ROCEDURE SCAN Procedures Ordered: 11/03/2024 [facility] Comment on above: Ordered: 11/03/2024 End: 08-05-2020 Screening digital breast tomosynthesis bi [employer] Digital Screen Bilateral Imaging Routine Once for 1 Occurrences starting 08/05/2020 until 08/05/2020 [employer] Work Phone: Comment on above: Once for 1 Occurrences starting 08/06/19 until 08/05/2020 Screening digital br east tomosynthesis bi Papito Oscar Digital Screen Bilateral Imaging Routine 08/05/2020 1:35 PM EST [employer] Work Phone: End: 11-10-2024 US Abdomen limited [employer] Work Phone: Comment on above: Once for 1 Occurrences starting 11/11/19 until 11/10/2024 End: 08-08-2023 XR Ankle - right 3 Views [employer] Work Phone: Comment on above: Once for 1 Occurrences starting 08/08/19 until 08/08/2023 End: 04-23-2019 XR CERVICAL SPINE (4-5 VIEWS) XR CERVICAL SPINE (4-5 VIEWS) Imaging Routine Once for 1 Occurrences starting 04/23/2019 until 04/23/2019 [employer] Comment on above: Once for 1 Occurrences starting 04/23/20 19 until 04/23/2019 XR CERVICAL SPINE (4 -5 VIEWS) XR CERVICAL SPINE (4-5 VIEWS) Imaging Routine 04/23/2019 3:00 PM EST [employer] End: 05-12-2024 XR Cervical spine 2 or 3 Views [employer] Work Phone: Comment on above: Once for 1 Occurrences starting 05/12/20 until 05/12/2024 End: 07-31-2024 XR Cervical spine 2 or 3 Views [employer] Work Phone: Comment on above: Once for 1 Occurrences starting 07/31/19 until 07/31/2024 End: 12-17-2023 XR Hand - left 3 Views [employer] Work Phone: Comment on above: Once for 1 Occurrences starting 12/17/19 until 12/17/2023 End: 12-03-2023 XR Hand - right 3 Views [employer] Comment on above: Once for 1 Occurrences starting 12/03/19 until 12/03/2023 End: 09-13-2021 XR HIP 2-3 VW W PELVIS LEFT XR HIP 2-3 VW W PELVIS LEFT Imaging Routine Hip pain 1 Occurrences starting 09/13/2021 until 09/13/2021 [employer] Work Phone: Comment on above: 1 Occurrences starting 09/13/2021 until 09/13/2021 End: 04-23-2019 XR LUMBAR SPINE (2-3 VIEWS) XR LUMBAR SPINE (2-3 VIEWS) Imaging Routine Once for 1 Occurrences starting 04/23/2019 until 04/23/2019 [employer] J[facility] Comment on above: Once for 1 Occurrences starting 04/23/20 19 until 04/23/2019 XR LUMBAR SPINE (2-3 VIEWS) XR LUMBAR SPINE (2-3 VIEWS) Imaging Routine 04/23/2019 1:11 PM EST [employer] [facility] End: 03-30-2019 XR LUMBAR SPINE (MIN 4 VIEWS) XR LUMBAR SPINE (MIN 4 VIEWS) Imaging Routine Once for 1 Occurrences starting 03/30/2019 until 03/30/2019 [employer] [facility] Comment on above: Once for 1 Occurrences starting 03/30/20 19 until 03/30/2019 XR LUMBAR SPINE (MIN 4 VIEWS) XR LUMBAR SPINE (MIN 4 VIEWS) Imaging Routine 03/30/2019 4:09 PM EDT [employer] [facility] End: 12-17-2023 XR Wrist - left 3 Views [employer] Comment on above: Once for 1 Occurrences starting 12/17/19 until 12/17/2023 End: 12-03-2023 XR Wrist - right 3 Views [employer] Work Phone: Comment on above: Once for 1 Occurrences starting 12/03/19 24 until 12/03/2023 Immunizations Immunization Date Immunization Notes Care Provider Mik pacheco 06-22-2021 Pfizer SARS-CoV-2 Vaccination Jun Jimneez MD Work Phone: [employer] 08-11-2020 Genaro SARS-CoV-2 Vaccination Jun Jimenez MD Work Phone: [facility] [employer] 05-17-2020 Influenza, High-dose , Quadv, 65 yrs +, IM (Fluzone) Martir [facility] 05-17-2020 influenza virus vacc ine, unspecified formulation Jun Jimenez MD Work Phone: [facility] [employer] 03-30-2019 influenza, high dose seasonal, preservative-free Martir Keene [facility], [place] 01-28-2019 pneumococcal polysaccharide vaccine, 23 valent Martir Keene [facility] 09-28-2016 pneumococcal conjuga te vaccine, 13 valent Alan [facility], [place] 03-08-2014 influenza virus vacc ine, unspecified formulation Alan Glasgow [facility] , [place] 03-08-2014 influenza virus vacc ine, whole virus Anthony Pinedateddy [facility], [place] Payers Date Payer Category Payer Self-pay 2020 Medicare [employer] MEDICARE ADVANTAGE [facility] [id number] 2020-Present [address] [place] [address] Medicare HMO [id number] 2020 Medicare HMO [employer] MEDICARE [id number] 2019 Medicare [id number] 2014 Medicare xxxxxxxxx [id number] 1949 Unknown [id number] [id number] 1949 Unknown [id number]. [id number] 1949 Unknown [id number]. 2. 1949 Unknown [id number]. 2.668 1949 Unknown [id number]. 2.668 1949 Unknown [id number]. 2.668 Private Health Insurance Unknown [id number]. [id number] Unknown [id number]. 2.462 Unknown [id number]. 2.462 Unknown [id number]. 2.462 Unknown [id number]. 2.462 Unknown [id number] [id number]. 2.462 Unknown [id number]. 2.462 Unknown [id number]. 2.462 Unknown [id number]. 2.462 Social History Date Type Detail Facility Start: 01-28-2019 End: 01-21-2023 Tobacco smoking status NHIS Current every day smoker [place], [place] Start: [birth year]-20-1969 End: 02-28-2024 History of tobacco use Cigarette [place] Start: 01-28-2019 End: 04-14-2024 Cigarettes smoked current (pack per day) - Reported [facility] [employer] Start: 01-28-2019 End: 04-14-2024 Alcohol intake No [employer] [facility] Start: 09-05-2018 End: 06-01-2022 History SDOH Alcohol Frequency 1 [place] Start: 09-05-2018 History SDOH Social Connections Phone 3 [place] Start: 09-05-2018 End: 08-09-2022 History SDOH Social [employer]ctions Membership 2 [place] Start: 09-05-2018 History SDOH Social [employer]ctions Meetings 99 [place] Start: 09-05-2018 End: 05-18-2021 History SDOH Financial 5 [place], [place] Start: 1950 Sex Assigned At Not on file M [place], [place] Start: 06-16-2019 End: 09-02-2024 Alcohol intake Current non-drinker of alcohol (finding) [place] Start: 03-29-2020 End: 09-02-2024 Tobacco use and exposure Never used [place] Start: 08-20-2021 End: 10-09-2022 Exposure to SARS-CoV-2 (event) Not sure [place] Start: 05-17-2020 End: 06-01-2022 History SDOH Physical Activity DPW 0 [facility] Work Phone: Start: 1950 Sex Assigned At Female S [facility] How often to you hav e a drink containing alcohol? Never [facility] How many standard drinks containing alcohol do you have on a typical day? Patient does not drink [facility] [employer] In the past 12 month s, was there a time when you were not able to pay the mortgage or rent on time? No [facility] Start: 05-23-2022 Gender identity Identifies as female gender (finding) [facility] Start: 05-23-2022 Sexual orientation Heterosexual (fin ding) [facility] Tobacco smoking stat [facility] Tobacco smoking consumption unknown [facility] Start: 04-09-2024 End: 09-02-2024 Tobacco smoking status OHIS Ex-smoker [facility] Start: [birth year]20-1970 End: 02-28-2024 History of tobacco use Current smoker [facility] [employer] (I/We) worried wheth er (my/our) food would run out before (I/we) got money to buy more. Never true [facility] Start: 04-09-2024 Tobacco Comment Stopped smokin g end of February , but Last 3 days have smoked 2 to 3 cigarettes per day. Will quit again for surgery [facility] Start: 01-01-2022 Sex Female (finding) [facility] How often to you hav e a drink containing alcohol? Monthly or less [facility] How many standard drinks containing alcohol do you have on a typical day? 1 or 2 [facility] Start: 09-02-2024 Tobacco Comment Have quit in the pas t [facility] [employer] Start: 06-04-2019 Lives Lives [facility] Start: 06-04-2019 Tobacco Use Tobacco Use [facility] Medical Equipment Procedure Code Equipment Code Equipment Origin al Text Equipment Identifier Dates [place] Sut Fiber melissa Dx #2 Mts - [id number] Start: 08-16-2022 Bone Bmp Putty I-Factor 2.5cc - [id number] Start: 04-14-2024 Graft Dbm Putty Valente 2.5cc - [id number] - [id number] Start: 04-14-2024 Cage Spinal Olena lock 6deg 7mm - [id number] Start: 04-14-2024 Plate Cerv Zevo 17mm Level1 - [id number] Start: 04-14-2024 Screw Bn Vas Sd 3.5x15 - [id number] Start: 04-14-2024 Goals Date Patient Goal Desired Activity /State Comment on above: To quit Smoking Barriers: stress Plan for overcoming my barriers: reduce stress " Take a vacation" Confidence: 5/10 Anticipated Goal Completion Date: 01/29/2020 Formatting of this n ote might be different from the original. To quit Smoking Barriers: stress Plan for overcoming my barriers: reduce stress " Take a vacation" Confidence: 5/10 Anticipated Goal Completion Date: 01/29/2020 Clinical Notes 03-30-2022 to 09-29-2024 Note Date & Type Note Facility 09-29-2024 Evaluation note Diagnosis Onset Date Resolution Atherosclerosis of coronary artery of [place] heart without angina pectoris chronic September 29, 2024 1:53pm Diastolic dysfunction chronic Apr il 2024 1:53pm Essential hypertension chronic Ap ril 2024 1:53pm Hyperlipidemia chronic September 1:53pm Palpitations chronic September 29, 2024 1:53pm [facility] Work Phone: [phone]) 925-871003-10-2025 History of Present illness Narrative* German Dietz MD - 08/10/2024 1:00 PM EDT NEUROSURGERY and SPINE POST-OP NOTE Patient Name: Chantal Linares Patient : 1950 PCP: Martir Keene MD History of Present Ilness: Patient is post-op revision 5-7 ACDF with extension of fusion C4-C5 performed on 04/14/24. Overall she is recovering in a usual fashion. She reports difficulty with swallowing; states saliva gets stuck. She did not go to speech therapy that was previously recommended. Sheis attempting stretch exercises for her neck that she obtained on line. She reports muscle tightness that she has been using muscle relaxants for. Past Medical History: Past Medical History: Diagnosis Date Acute bacterial sinusitis 09/07/2018 Adverse effect of anesthesia 2022 Do not want versed before going to operating room. Do not like effect Anxiety CAD (coronary artery disease) Chronic pain disorder 2019 Lumbar Spondolithesis, shoulder, arms left and right. Hands and wrists both hips Colon polyp 2011 COPD (chronic obstructive pulmonary disease) ([facility]) Depression Diastolic dysfunction, left ventricle Diverticulosis Dizziness 2004 Ocassionaly. Worse since cervical radiculopathr and cervical myelopathy Fibromyalgia GERD (gastroesophageal reflux disease) Hiatal hernia 2010 Heartburn often especially under stress Hyperlipidemia Hypertension 2021 On losarton 50mg Irritable bowel syndrome Joint pain 2000 Back, ankles, wrists, hands, knees,neck Osteochondral lesion of talar dome SCHEDULED FOR THE SURGERY ON 08/16/22 AT [facility] (postoperative nausea and vomiting) Prediabetes controlled by diet Rheumatoid arthritis ([facility]) Shortness of breath 2019 Spondylolisthesis, lumbar region Past Surgical History: Past Surgical History: Procedure Laterality Date ANKLE ARTHROPLASTY 2022 Repair of peroneal tendon ANKLE SURGERY Right 08/16/2022 Right repair peroneal tendon and ankle arthroscopic debridement talar osteochondral lesion - Dr. Jimenez ANTERIOR CERVICAL DISCECTOMY W/ FUSION 04/14/2024 4-5 APPENDECTOMY CARDIAC CATHETERIZATION 10 11 2014 NO INTERVENTION CATARACT EXTRACTION CERVICAL FUSION 2015 Dr Dietz CHOLECYSTECTOMY COLON SURGERY 03 16 2013 approx; sigmoidectomy diverticulosis COLONOSCOPY 01 06 2013 colonic polyps, diverticulosis, hemorrhoids DILATION AND CURETTAGE OF UTERUS HYSTERECTOMY NECK SURGERY C5-C7 ACDF (Dr. Adam) TONSILLECTOMY AND ADENOIDECTOMY (HISTORICAL) TUBAL LIGATION UPPER GASTROINTESTINAL ENDOSCOPY 01 06 2013 see report Home Medications: Prior to Admission medications Medication Sig Start Date End Date Taking? Authorizing Provider albuterol (ProAir HFA) 108 (90 Base) MCG/ACT inhaler Inhale 2 puffs every 4 hours as needed for wheezing or shortness of breath. Patient not taking: Reported on 04/14/2024 08/01/23 07/31/24 Martir Keene MD ALPRAZolam (Xanax) 0.25 MG tablet take 1 tablet by mouth NIGHTLY NEEDED FOR SLEEP OR ANXIETY FORUP TO 90 DAYS Patient not taking: Reported on 04/14/2024 06/01/22 Martir Keene MD cyanocobalamin (Vitamin B-12) 100 MCG tablet Take 50 mcg by mouth in the morning. Historical Provider, Fluticasone Furoate-Vilanterol (BREO ELLIPTA IN) inhale 1 puff by mouth INTO THE LUNGS daily Inhalation for 30 Historical Provider, gabapentin (Neurontin) 100 MG capsule Take 300 mg by mouth 2 times daily. 03/12/22 Historical Provider, lansoprazole (Prevacid) [address] capsule Take 30 mg by mouth in the morning. 02/11/22 Historical Provider, losartan (Cozaar) 50 MG tablet Nightly. 02/06/22 Historical Provider, methylPREDNISolone (Medrol Dospak) 4 MG tablets Take as directed on package 04/20/24 05/20/24 Tatiana Adam, OPERATIONS AGENT - ELECTRIC CELL TENDER montelukast (Singulair) 10 MG tablet Take 1 tablet (10 mg) by mouth Nightly. 09/16/23 09/15/24 Martir Keene MD naloxone (Narcan) 4 mg/0.1 mL nasal spray instill 1 spray in 1 nostril if needed for OPIOID OVERDOSE may re... (REFER TO PRESCRIPTION NOTES). 08/16/22 Historical Provider, naloxone (Narcan) 4 mg/0.1 mL nasal spray Administer 1 spray (4 mg) into affected nostril(s) as needed for respiratory depression or opioid reversal. May repeat every 2-3 minutes if needed, alternating nostrils, until medical assistance becomes available. 04/15/24 04/15/25 Malaika Pack PA-C oxyCODONE (Roxicodone) 5 MG immediate release tablet Take 1 tablet (5 mg) by mouth every 6 hours asneeded for severe pain (7-10) (breakthrough post op pain) for up to 7 days. 04/27/24 05/04/24 IVY Michael CNP sertraline (Zoloft) 100 MG tablet take 2 tablets by mouth once daily 05/22/23 Martir Keene MD simvastatin (Zocor) 40 MG tablet take 1 tablet by mouth once daily 06/26/23 Martir Keene MD tiZANidine (Zanaflex) 4 MG tablet Take 1 tablet (4 mg) by mouth every 8 hours as needed for muscle spasms for up to 10 days. 04/27/24 05/07/24 IVY Michael CNP varenicline (Chantix Starting Month ) 0.5 MG X 11 & 1 MG X 42 tablet Use as directed on package instructions, try to quit smoking after 1 week. 02/25/24 Martir Keene MD varenicline (Chantix) 1 MG tablet Take 1 tablet (1 mg) by mouth 2 times daily. Take with full glassof water. Do not start before April 18, 2024. 04/18/24 06/17/24 Martir Keene MD oxyCODONE (Roxicodone) 5 MG immediate release tablet Take 1 tablet (5 mg) by mouth every 6 hours asneeded for severe pain (7-10) (breakthrough post op pain) for up to 7 days. 04/15/24 04/27/24 Malaika Pack PA-C tiZANidine (Zanaflex) 4 MG tablet Take 1 tablet (4 mg) by mouth every 8 hours as needed for muscle spasms for up to 10 days. 04/15/24 04/27/24 Malaika Pack PA-C Allergies: Lisinopril and Propranolol hcl Physical Examination: Vitals: 08/10/24 1259 BP: 126/85 Pulse: 86 Physical Exam Constitutional: Appearance: Normal appearance. HENT: Head: Normocephalic. Eyes: Extraocular Movements: Extraocular movements intact. Pupils: Pupils are equal, round, and reactive to light. Cardiovascular: Rate and Rhythm: Normal rate. Pulmonary: Effort: Pulmonary effort is normal. Abdominal: Palpations: Abdomen is soft. Musculoskeletal: General: Normal range of motion. Cervical back: Normal range of motion and neck supple. Skin: General: Skin is warm and dry. Neurological: General: No focal deficit present. Mental Status: She is alert. Psychiatric: Mood and Affect: Mood normal. Judgment: Judgment normal. Neurological Exam Mental Status Alert. Cranial Nerves CN III, IV, : Extraocular movements intact bilaterally. Pupils equal round and reactive to light bilaterally. Incision well-healed Plain films of the cervical spine show postop changes C4-C5, there is no evidence of hardware failure. ASSESSMENT / PLAN : She is status post C4-C5 ACDF. She is doing very well, her preop symptoms are significantly improved. She is slowly getting back to all her normal daily activities. Today we released her to activity she feels up to doing, she can now follow-up with us on an as-needed basis. Overall she was quite pleased with her surgical results and progress. Diagnosis Plan 1. Cervical radiculopathy documented in this [facility]02-26-2025 Evaluation + Plan note* Assessment & Plan Note - Martir Keene MD - 07/29/2024 2:00 PM ESTAssociated Problem(s): Hyperlipidemia - Due for lab work for monitoring. On Simvastatin without side effect. Orders: CBC; Future Comprehensive metabolic panel; Future Lipid panel; Future CBC Comprehensive metabolic panel [id number] Evaluation + Plan note* Assessment & Plan Note - Martir Keene MD - 07/29/2024 2:00 PM ESTAssociated Problem(s): Diabetic on diet only (CMS/HCC) (HCC) - Diabetes Mellitus - Chantal has a history of diabetes diagnosed in 2014. She expressed concerns about her A1C levelsin relation to cortisone injections. - Plan: Perform an A1C test in the office today to monitor her glucose control. Discuss results andmanagement options based on the outcome. Orders: CBC; Future Comprehensive metabolic panel; Future Lipid panel; Future AMB POC HEMOGLOBIN A1C AMB POC URINE, MICROALBUMIN CBC Comprehensive metabolic panel Lipid panel [id number] Evaluation + Plan note* Assessment & Plan Note - Martir Keene MD - 07/29/2024 2:00 PM ESTAssociated Problem(s): Cervical myelopathy (HCC) - Continues with chronic pain of the neck though does wax and wane in severity. Encouraged to seek specialist care. [facility] [id number] Evaluation + Plan note* Assessment & Plan Note - Martir Keene MD - 07/29/2024 2:00 PM ESTAssociated Problem(s): Anxiety - Medication Management - Chantal is on controlled medication for anxiety and requires a urine drug screen and contract signing for continued use. - Plan: Conduct a urine drug screen today and review the controlled substance agreement with Chantal. Ensure she understands the terms and conditions for ongoing medication use. Orders: ALPRAZolam (Xanax) 0.25 MG tablet; TAKE 1 TABLET BY MOUTH NIGHTLY NEEDED [facility] [id number] History of Present illness Narrative* Martir Keene MD - 07/29/2024 2:00 PM EST Images from the original note were not included. [facility] - [address] [facility] [address] Dept: [phone] Dept Chief Complaint: Chantal Linares is an 74 y.o. female here for an annual wellness visit. I obtained verbal consent from the patient and/or patient s guardian to use ambient listening technology during this encounter before the ambient technology was engaged. Assessment/Plan : Assessment & Plan Routine general medical examination at health care facility - Health Maintenance - Chantal is due for several health maintenance screenings. - Plan: Order a mammogram and lung cancer screening. Schedule follow-up appointments for screeningsand review results with Chantal. Mixed hyperlipidemia - Due for lab work for monitoring. On Simvastatin without side effect. Orders: CBC; Future Comprehensive metabolic panel; Future Lipid panel; Future CBC Comprehensive metabolic panel Lipid panel Diabetic on diet only (CMS/HCC) (HCC) - Diabetes Mellitus - Chantal has a history of diabetes diagnosed in 2014. She expressed concerns about her A1C levelsin relation to cortisone injections. - Plan: Perform an A1C test in the office today to monitor her glucose control. Discuss results andmanagement options based on the outcome. Orders: CBC; Future Comprehensive metabolic panel; Future Lipid panel; Future AMB POC HEMOGLOBIN A1C AMB POC URINE, MICROALBUMIN CBC Comprehensive metabolic panel Lipid panel Cervical myelopathy (HCC) - Continues with chronic pain of the neck though does wax and wane in severity. Encouraged to seek specialist care. Chronic obstructive pulmonary disease, unspecified COPD type (HCC) - Currently on Breo and Albuterol. No change at this time. Reportedly doing well. Anxiety - Medication Management - Chantal is on controlled medication for anxiety and requires a urine drug screen and contract signing for continued use. - Plan: Conduct a urine drug screen today and review the controlled substance agreement with Chantal. Ensure she understands the terms and conditions for ongoing medication use. Orders: ALPRAZolam (Xanax) 0.25 MG tablet; TAKE 1 TABLET BY MOUTH NIGHTLY NEEDED Encounter for screening mammogram for breast cancer Orders: Bilateral screening mammogram with tomosynthesis; Future Personal history of tobacco use, presenting hazards to health Orders: CT lung screening low dose; Future Gait instability - Gait Abnormality - Chantal reported worsening gait difficulties but declined physical therapy. - Plan: Advise Chantal to maintain activity and walking. If falls occur, consider assistive devices such as canes or walkers. Arthritis, multiple joint involvement - CMC Joint Dysfunction - Chantal has been experiencing worsening pain and functional difficulties with her CMC joint. Shehas a history of cortisone injections and is considering surgery as a potential treatment. - Plan: Support Chantal's decision to try another cortisone injection before considering surgery. Encourage follow-up with her orthopedic surgeon, Dr. Lomeli, for further management. Vaccine refused by patient - Vaccinations - Chantal has not received a flu shot. - Plan: Offer and administer a flu shot during today's visit if Chantal consents. She declines. Tobacco use disorder - Tobacco Use Disorder - Chantal successfully quit smoking in the fall and experienced significant withdrawal symptoms. - Plan: Congratulate Chantal on quitting smoking and encourage her to continue abstaining from tobacco use. Offer support and resources if needed. Follow-up appointments and additional tests will be scheduled as needed based on the outcomes of today's assessments and screenings. I have reviewed and reconciled the medication list with the patient today. Current Outpatient Medications Medication Sig Dispense Refill albuterol (ProAir HFA) 108 (90 Base) MCG/ACT inhaler Inhale 2 puffs every 4 hours as needed for wheezing or shortness of breath. 8.5 g 0 Diclofenac Sodium (Voltaren) 1 % gel Apply topically 2 times daily. Fiber 500 MG capsule Fluticasone Furoate-Vilanterol (BREO ELLIPTA IN) inhale 1 puff by mouth INTO THE LUNGS daily Inhalation for 30 gabapentin (Neurontin) 100 MG capsule Take 300 mg by mouth 2 times daily. lansoprazole (Prevacid) [address] capsule Take 30 mg by mouth in the morning. losartan (Cozaar) 50 MG tablet Nightly. montelukast (Singulair) 10 MG tablet Take 1 tablet (10 mg) by mouth Nightly. 90 tablet 3 sertraline (Zoloft) 100 MG tablet Take 2 tablets by mouth once daily 180 tablet 3 simvastatin (Zocor) 40 MG tablet TAKE 1 TABLET BY MOUTH EVERY DAY 90 tablet 3 tiZANidine (Zanaflex) 4 MG tablet Take 1 tablet (4 mg) by mouth every 8 hours as needed for muscle spasms for up to 10 days. 30 tablet 0 ALPRAZolam (Xanax) 0.25 MG tablet TAKE 1 TABLET BY MOUTH NIGHTLY NEEDED 30 tablet 0 cyanocobalamin (Vitamin B-12) 100 MCG tablet Take 50 mcg by mouth in the morning. naloxone (Narcan) 4 mg/0.1 mL nasal spray instill 1 spray in 1 nostril if needed for OPIOID OVERDOSE may re... (REFER TO PRESCRIPTION NOTES). naloxone (Narcan) 4 mg/0.1 mL nasal spray Administer 1 spray (4 mg) into affected nostril(s) as needed for respiratory depression or opioid reversal. May repeat every 2-3 minutes if needed, alternating nostrils, until medical assistance becomes available. 2 each 0 varenicline (Chantix Starting Month ) 0.5 MG X 11 & 1 MG X 42 tablet Use as directed on package instructions, try to quit smoking after 1 week. 53 each 0 varenicline (Chantix) 1 MG tablet Take 1 tablet (1 mg) by mouth 2 times daily. Take with full glassof water. Do not start before April 18, 2024. 60 tablet 1 No current facility-administered medications for this visit. Also reviewed during this visit: The following health maintenance schedule was reviewed with the patient and provided in printed form in the after visit summary: Health Maintenance Topic Date Due Diabetes: Retinopathy Screening Never done Hepatitis C Screening Never done DTaP/Tdap/Td Vaccines (1 - Tdap) Never done Zoster Vaccines (1 of 2) Never done Lung Cancer Screening Never done Influenza Vaccine (1) 02/02/2024 COVID-19 Vaccine (3 season) 2024 RSV Immunization for Adults (1 - 1-dose 75+ series) Never done Depression Monitoring 01/26/2025 Diabetes: Estimated Glomerular Filtration Rate for Kidney Health 04/15/2025 Diabetes: Urine Albumin-Creatinine Ratio for Kidney Health 07/29/2025 Colorectal Cancer Screening 04/30/2027 Medicare Advantage Annual Wellness Visit Completed Pneumococcal Vaccine: 50+ Years Completed Bone Density Scan Completed RSV Immunization under 20 Months Aged Out HIB Vaccines Aged Out Hepatitis B Vaccines Aged Out IPV Vaccines Aged Out Hepatitis A Vaccines Aged Out Meningococcal Vaccine Aged Out Rotavirus Vaccines Aged Out HPV Vaccines Aged Out List of current healthcare providers: Patient Care Team: Martir Keene MD as PCP - General Orders Placed This Encounter Procedures Bilateral screening mammogram with tomosynthesis Standing Status: Future Standing Expiration Date: 09/26/2025 CT lung screening low dose Standing Status: Future Standing Expiration Date: 07/29/2025 Order Specific Question: For this exam, the patient must be between 50-80 years of age. Does this patient meet that criteria? Answer: Yes Order Specific Question: Does the patient show any signs or symptoms of lung cancer? Answer: No Order Specific Question: Is this the first (baseline) CT or an annual exam? Answer: Baseline [1] Order Specific Question: What is the patient's current smoking status? Answer: Former Smoker Order Specific Question: How many years ago did the patient quit smoking? (must be <15 years) Answer: 0 Order Specific Question: What is the patient's total pack years? (must be at least 20 pack years) Answer: 54.3 Order Specific Question: Is there documentation of shared decision making? Answer: Yes Order Specific Question: Has it been at least 11 months since the patient's last CT scan? Answer: Yes Order Specific Question: Did the patient receive cessation guidance? Answer: Unknown [3] CBC Standing Status: Future Number of Occurrences: 1 Standing Expiration Date: 07/29/2025 Comprehensive metabolic panel Standing Status: Future Number of Occurrences: 1 Standing Expiration Date: 07/29/2025 Lipid panel Standing Status: Future Number of Occurrences: 1 Standing Expiration Date: 07/29/2025 Order Specific Question: Has the patient been fasting for 8 hours or more? Answer: Yes AMB POC HEMOGLOBIN A1C AMB POC URINE, MICROALBUMIN Subjective : Chantal Linares is an 74 y.o. female here for an annual wellness visit. History of Present Illness Chantal Linares, a 74-year-old female, presented for a Medicare Annual Wellness visit. She reported ongoing issues with her CMC joint, describing progressive functional difficulties such as openingjars, squeezing out tubes, and pulling up her hands, which result in intense pain. Chantal mentioned previous cortisone injections that provided some relief but indicated the problem is worsening. She also discussed a potential surgery involving the removal of a bone and replacement with tendon material. Additionally, Chantal expressed concerns about her A1C levels in relation to upcoming cortisone injections and a history of diabetes diagnosed in 2014. She reported a past cervical surgery and a recent cervical injection that temporarily alleviated pain. Chantal mentioned quitting smoking in the fall and experiencing severe withdrawal symptoms. She also reported increased gait difficulties and hip pain, as well as a recent increase in dizziness. Health Maintenance: Breast Cancer Screen: Accepts breast cancer screening: Patient will call [phone] to schedule. Colon Cancer Screen: Dr Whyte 04/30/2017 Osteoporosis Screen: Osteoporosis screening not indicated Lung Cancer Screen: Lung cancer screening is recommended and agreed to Vaccines Declines Review of Systems Constitutional: Negative for activity change, appetite change and fatigue. HENT: Negative for congestion, postnasal drip, rhinorrhea and sore throat. Respiratory: Negative for cough and shortness of breath. Cardiovascular: Negative for chest pain. Gastrointestinal: Negative for abdominal pain, constipation, diarrhea, nausea and vomiting. Skin: Negative for rash. All other systems reviewed and are negative. Objective : BP 111/78 (BP Location: Right arm, Patient Position: Sitting, BP Cuff Size: Large adult) Pulse 94 Wt 166 lb (75.3 kg) SpO2 95% BMI 26.00 kg/m Physical Exam Vitals and nursing note reviewed. Constitutional: Appearance: Normal appearance. HENT: Head: Normocephalic and atraumatic. Right Ear: Tympanic membrane, ear canal and external ear normal. Left Ear: Tympanic membrane, ear canal and external ear normal. Nose: Nose normal. Mouth/Throat: Mouth: Mucous membranes are moist. Pharynx: Oropharynx is clear. Eyes: Extraocular Movements: Extraocular movements intact. Conjunctiva/sclera: Conjunctivae normal. Pupils: Pupils are equal, round, and reactive to light. Cardiovascular: Rate and Rhythm: Normal rate and regular rhythm. Pulses: Normal pulses. Heart sounds: Normal heart sounds. No murmur heard. Pulmonary: Effort: Pulmonary effort is normal. Breath sounds: Normal breath sounds. No wheezing. Abdominal: General: Abdomen is flat. Bowel sounds are normal. Palpations: Abdomen is soft. Tenderness: There is no abdominal tenderness. Musculoskeletal: General: Normal range of motion. Cervical back: Normal range of motion and neck supple. Skin: General: Skin is warm and dry. Capillary Refill: Capillary refill takes less than 2 seconds. Neurological: General: No focal deficit present. Mental Status: She is alert. Mental status is at baseline. Health Risk Assessment: General: General In general, how would you say your health is?: (!) Fair In the past 7 days, have you experienced any of the following: New or Increased Pain, New or Increased Fatigue, Loneliness, Social Isolation, Stress or Anger?: (!) Yes Select all that apply: (!) New or Increased Pain, Stress Do you get the social and emotional suppport you need?: Yes Interventions: Pain Issues: see above Health Habits/Nutrition: Health Habits / Nutrition On average, how many days per week do you engage in moderate to strenous exercise (like a brisk walk)?: 3 days On average, how man minutes do you engage in exercise at this level?: 20 min Have you lost any weight without trying in the past 3 months? : No Have you seen the dentist within the past year?: (!) No Hearing/ Vision: Hearing / Vision Do you or your family notice any trouble with your hearing that hasn't been managed with hearing aids?: No Do you have difficulty driving, watching TV, or doing any of your daily activities because of your eyesight?: No Have you had an eye exam within the past year?: (!) No No results found. 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 : Yes Do all your stairways have a railing or banister? : Yes Do you fasten your seatbelt when you are in a car?: Yes ADL: ADL In the past 7 days, did you need help from others to perform any of the following everyday activities: Eating, dressing, grooming,bathing, toileting, or walking / balance? : No In the past 7 days, did you need help from others to take care of any of the following: laundry, housekeeping, banking / finances,shopping, telephone use, food preparation, transportation, or taking medications? : Yes Living Will: Living Will Do you have a living will?: No Interventions: Cognitive: Cognitive Screening: Mini-Cog Words Recalled: 2 Total Score Interpretation: Abnormal Mini-Cog Interventions: Fall Risk: Fall Risk One or more falls in the last year:: No Advised to use a cane or walker to get around safely:: No Feels unsteady when walking:: Yes Steadies self on furniture while walking at home:: No Worried about falling:: Yes Depression Screening: Over the past 2 weeks, how often have you been bothered by any of the following problems? Little interest or pleasure in doing things: Several days Feeling down, depressed, or hopeless: Several days Patient Health Questionnaire-2 Score: 2 If you checked off any problems on this questionnaire so far, How difficult have these problems made it for you to do your work, take care of things at home, or get along with other people?: Not difficult at all [place] Suicide Severity Rating Scale (Screener/Recent Self-Report) 1. Wish to be (Past 1 Month): No 2. Non-Specific Active Suicidal Thoughts (Past 1 Month): No 6. Suicidal Behavior (Lifetime): No Calculated C-SSRS Risk Score (Lifetime/Recent): No Risk Indicated Interventions: Tobacco Use: Social History Tobacco Use Smoking Status Former Current packs/day: 0.00 Average packs/day: 1 pack/day for 54.3 years (54.3 ttl pk-yrs) Types: Cigarettes Start date: [birth year]/20/1970 Quit date: 02/28/2024 Years since quittin.4 Smokeless Tobacco Never Tobacco Comments Stopped smoking end of February , but Last 3 days have smoked 2 to 3 cigarettes per day. Will quitagain for surgery Alcohol Use: Audit Alcohol Screening Q1: How often do you have a drink containing alcohol?: Monthly or less Q2: How many drinks containing alcohol do you have on a typical day when you are drinking?: 1 or 2 Q3: How often do you have six or more drinks on one occasion?: Never Audit-C Score: 1 Skip to questions 9-10?: 1 Social Drivers of Health: SDCA risk assessment performed and documented today by members of the health care team. A total time of 0-5 minutes was spent obtaining information from the patient and discussing options to address the patient's social risk factors and unmet needs. Social Drivers of Health with Concerns Concerns Present Tobacco Use: Medium Risk (07/29/2024) Physical Activity: Insufficiently Active (04/14/2024) Stress: Stress Concern Present (09/05/2018) [facility] Social Connections: Moderately Isolated (09/05/2018) Received from [facility] Unknown Concern Housing Stability: Unknown (04/14/2024) documented in this [facility]02-26-2025 Instructions* Patient Instructions* Martir Keene MD - 07/29/2024 2:00 PM EST Personalized Preventative Plan for Chantal Linares - 07/29/2024 Medicare offers a range of preventative health benefits. Some of the tests and screenings are paid in full while others may be subject to a deductible, co- insurance, and / or copay. Some of these benefits include a comprehensive review of your medical history including lifestyle, illnesses that mayrun in your family, and various assessments and screenings as appropriate. After reviewing your medical record and screening and assessments performed today, your provider may have ordered immunizations, labs, imaging, and / or referrals for you. A list of these orders (if applicable) as well as your Preventative Care list are included within your After Visit Summary for your review. Other Preventative Recommendations: A preventive eye exam by an eyewear manufacturing supervisor is recommended every 1-2 years to screen for glaucoma, cataracts, macular degeneration, and other eye disorders. A preventive dental visit is recommended every 6 months. Try to get at least 150 minutes of exercise per week or 10,000 steps per day on a pedometer. You need 1200-1500mg of calcium and 1106-9096 international units of vitamin D per day. It is possible to meet your calcium requirement with diet alone, but a vitamin D supplement is usually necessary to meet this goal. When exposed to the sun, use a sunscreen that protects against both UVA and UVB radiation with an SPF of 30 or greater. Reapply every 2-3 hours or after sweating, drying off with a towel, or swimming. Always wear a seat belt when traveling in a car. Always wear a helmet when riding a bicycle or a motorcycle documented in this [facility]02-26-2025 Miscellaneous Notes* Assessment & Plan Note - Martir Keene MD - 07/29/2024 2:00 PM ESTAssociated Problem(s): Hyperlipidemia - Due for lab work for monitoring. On Simvastatin without side effect. Orders: CBC; Future Comprehensive metabolic panel; Future Lipid panel; Future CBC Comprehensive metabolic panel Lipid panel * Assessment & Plan Note - Martir Keene MD - 07/29/2024 2:00 PM ESTAssociated Problem(s): Diabetic on diet only (CMS/HCC) (HCC) - Diabetes Mellitus - Chantal has a history of diabetes diagnosed in 2014. She expressed concerns about her A1C levelsin relation to cortisone injections. - Plan: Perform an A1C test in the office today to monitor her glucose control. Discuss results andmanagement options based on the outcome. Orders: CBC; Future Comprehensive metabolic panel; Future Lipid panel; Future AMB POC HEMOGLOBIN A1C AMB POC URINE, MICROALBUMIN CBC Comprehensive metabolic panel Lipid panel * Assessment & Plan Note - Martir Keene MD - 07/29/2024 2:00 PM ESTAssociated Problem(s): Cervical myelopathy (HCC) - Continues with chronic pain of the neck though does wax and wane in severity. Encouraged to seek specialist care. * Assessment & Plan Note - Martir Keene MD - 07/29/2024 2:00 PM ESTAssociated Problem(s): Anxiety - Medication Management - Chantal is on controlled medication for anxiety and requires a urine drug screen and contract signing for continued use. - Plan: Conduct a urine drug screen today and review the controlled substance agreement with Chantal. Ensure she understands the terms and conditions for ongoing medication use. Orders: ALPRAZolam (Xanax) 0.25 MG tablet; TAKE 1 TABLET BY MOUTH NIGHTLY NEEDED documented in this [facility] [id number] Note- Medication Management - Chantal is on controlled medication for anxiety and requires a urine drug screen and contract signing for continued use. - Plan: Conduct a urine drug screen today and review the controlled substance agreement with Chantal. Ensure she understands the terms and conditions for ongoing medication use. Orders: ALPRAZolam (Xanax) 0.25 MG tablet; TAKE 1 TABLET BY MOUTH NIGHTLY [facility]ED[facility] Telephone encounter Note* Telephone Encounter - Veronica Catherine RN - 06/13/2024 3:37 PM EST S: Patient spoke with [facility] nurse regarding med problem B: Onset of symptoms/concern 06/13 A: Patient's refill of zoloft was sent to [facility] pharmacy, but her preferred pharmacy is [facility] [address] [place] [address] in [place]. She is completely out and has been out since Saturday, starting to have withdrawal side effects. R: Patient understands care advice to give pharmacy 1-2 hours to fill. Order confirmed with pharmacist. No further needs at this time. Patient instructed to call back with new or worsening symptoms. Reason for Disposition [1] Prescription prescribed recently is not at pharmacy AND [2] triager has access to patient's EMRAND [3] prescription is recorded in the EMR Protocols used: Medication Refill and Renewal [id number] [id number] Miscellaneous Notes* Telephone Encounter - Veronica Catherine RN - 06/13/2024 3:37 PM EST S: Patient spoke with [facility] nurse regarding med problem B: Onset of symptoms/concern 06/13 A: Patient's refill of zoloft was sent to [facility] pharmacy, but her preferred pharmacy is [facility] [id number] [facility] in [place]. She is completely out and has been out since Saturday, starting to have withdrawal side effects. R: Patient understands care advice to give pharmacy 1-2 hours to fill. Order confirmed with pharmacist. No further needs at this time. Patient instructed to call back with new or worsening symptoms. Reason for Disposition [1] Prescription prescribed recently is not at pharmacy AND [2] triager has access to patient's EMRAND [3] prescription is recorded in the EMR Protocols used: Medication Refill and Renewal [id number] documented in this [facility]01-08-2025 Telephone encounter Note* Telephone Encounter - Veronica Peck MA - 06/10/2024 11:42 AM EST Recent Visits Date Type Provider Dept 08/23/23 Office Visit Martir Keene MD [facility] 08/01/23 Office Visit Martir Keene MD [facility] Showing recent visits within past 365 days and meeting all other requirements Future Appointments Date Type Provider Dept 07/08/24 Appointment Martir Keene MD [facility] Showing future appointments within next 90 days and meeting all other requirements Requested Prescriptions Pending Prescriptions Disp Refills sertraline (Zoloft) 100 MG tablet 180 tablet 3 Sig: take 2 tablets by mouth once daily Provider: Martir Keene MD [id number] - [place], [place] - [address] [facility] [address] [facility] [address] [facility] #[id number] - [place], [place] - [address] [facility] [address] [address] [facility] [address] [facility] [id number] Verified pharmacy: yes Verified day(s) supplied: yes Verified refill(s) needed (previous prescription showing no refills in chart): Yes Have you received any controlled medications from any other provider? Overdue for visit: Yes If yes - patient scheduled? Yes Most recent labs completed in chart? N/A [id number] Miscellaneous Notes* Telephone Encounter - Veronica Peck MA - 06/10/2024 11:42 AM EST Recent Visits Date Type Provider Dept 08/23/23 Office Visit Martir Keene MD [facility] 08/01/23 [facility] Show[facility] recent visits within past 365 days and meeting all other requirements Future Appointments Date Type Provider Dept 07/08/24 Appointment Martir Keene MD [facility] Showing future appointments within next 90 days and meeting all other requirements Requested Prescriptions Pending Prescriptions Disp Refills sertraline (Zoloft) 100 MG tablet 180 tablet 3 Sig: take 2 tablets by mouth once daily Provider: Martir Keene MD [id number] - [place], [place] - [address] [address] [facility] [id number] [facility]/pharmacy #[id number] - [place], [place] - [address] [facility] [place] [address] [address] [facility] [id number] [facility] [address] [facility] [id number] Verified pharmacy: yes Verified day(s) supplied: yes Verified refill(s) needed (previous prescription showing no refills in chart): Yes Have you received any controlled medications from any other provider? Overdue for visit: Yes If yes - patient scheduled? Yes Most recent labs completed in chart? N/A documented in this [facility]12-11-2024 Telephone encounter Note* Telephone Encounter - Oralia Dupree RN - 05/13/2024 9:22 AM EST Left message relaying the results of xray. Instructed patient to give us a call with any questions. [id number] Miscellaneous Notes* Telephone Encounter - Oralia Dupree RN - 05/13/2024 9:22 AM EST Left message relaying the results of xray. Instructed patient to give us a call with any questions. * Telephone Encounter - IVY Michael CNP - 05/13/2024 8:19 AM EST X-ray has been reviewed bny Dr. Dietz. The x-rays are normal, normal post- operative changes. The hardware is in good position with no evidence of loosening or malalignment. She should continue with recommendations of speech therapy * Telephone Encounter - Oralia Dupree RN - 05/12/2024 4:09 PM EST Patient notified us that she had her xrays completed and are ready for review documented in this [facility]ST[facility] [id number] Telephone encounter Note* Telephone Encounter - IVY Michael CNP - 05/13/2024 8:19 AM EST X-ray has been reviewed bny Dr. Dietz. The x-rays are normal, normal post- operative changes. The hardware is in good position with no evidence of loosening or malalignment. She should continue with recommendations of speech therapy [facility] [id number] Telephone encounter Note* Telephone Encounter - Oralia Dupree RN - 05/12/2024 4:09 PM EST Patient notified us that she had her xrays completed and are ready for review [facility] [id number] History of Present illness Narrative* German Dietz MD - 05/11/2024 1:15 PM EST NEUROSURGERY and SPINE POST-OP NOTE Patient Name: Chantal Linares Patient : 1950 PCP: Martir Keene MD History of Present Ilness: Patient is post-op revision 5-7 ACDF with extension of fusion C4-C5 performed on 04/14/24. Patient messaged in through [employer] this am with the following; --Throat pain worse, feels like food gets stuck or their is something in my throat, swallowing verydifficult, coughing at times when eating, Has worsened over these last 3 weeks. Hard to eat --Neck is swollen worse above incision. Also to the side of neck. Hurts more --Voice is hoarse especially if I talk for 5 minutes --Very tired worse this past week. Sat and Saturday body aches, weakness, chills, dizziness at times.Strength does not seem to be increasing not getting better. Advised for her to be seen in clinic. Patient reports that she feels that her neck is more swollen.She states that she is able to tolerate soft foods like soups and puddings but is having more difficulty with solid foods. She states she feels like there is a lump in her throat. She also reports increased pain in her throat" feels like strep throat" and generalized weakness. Past Medical History: Past Medical History: Diagnosis Date Acute bacterial sinusitis 09/07/2018 Adverse effect of anesthesia 2022 Do not want versed before going to operating room. Do not like effect Anxiety CAD (coronary artery disease) Chronic pain disorder 2018 Lumbar Spondolithesis, shoulder, arms left and right. Hands and wrists both hips Colon polyp 2011 COPD (chronic obstructive pulmonary disease) (HCC) Depression Diastolic dysfunction, left ventricle Diverticulosis Dizziness 2004 Ocassionaly. Worse since cervical radiculopathr and cervical myelopathy Fibromyalgia GERD (gastroesophageal reflux disease) Hiatal hernia 2010 Heartburn often especially under stress Hyperlipidemia Hypertension 2021 On losarton 50mg Irritable bowel syndrome Joint pain 1999 Back, ankles, wrists, hands, knees,neck Osteochondral lesion of talar dome SCHEDULED FOR THE SURGERY ON 08/16/22 AT [facility] (postoperative nausea and vomiting) Prediabetes controlled by diet Rheumatoid arthritis (HCC) Shortness of breath 2019 Spondylolisthesis, lumbar region Past Surgical History: Past Surgical History: Procedure Laterality Date ANKLE ARTHROPLASTY 2022 Repair of peroneal tendon ANKLE SURGERY Right 08/16/2022 Right repair peroneal tendon and ankle arthroscopic debridement talar osteochondral lesion - Dr. Jimenez ANTERIOR CERVICAL DISCECTOMY W/ FUSION 04/14/2024 4-5 APPENDECTOMY CARDIAC CATHETERIZATION 10 11 2014 NO INTERVENTION CATARACT EXTRACTION CERVICAL FUSION 2015 Dr Dietz CHOLECYSTECTOMY COLON SURGERY 03 16 2013 approx; sigmoidectomy diverticulosis COLONOSCOPY 01 06 2013 colonic polyps, diverticulosis, hemorrhoids DILATION AND CURETTAGE OF UTERUS HYSTERECTOMY NECK SURGERY C5-C7 ACDF (Dr. Adam) TONSILLECTOMY AND ADENOIDECTOMY (HISTORICAL) TUBAL LIGATION UPPER GASTROINTESTINAL ENDOSCOPY 01 06 2013 see report Home Medications: Prior to Admission medications Medication Sig Start Date End Date Taking? Authorizing Provider albuterol (ProAir HFA) 108 (90 Base) MCG/ACT inhaler Inhale 2 puffs every 4 hours as needed for wheezing or shortness of breath. Patient not taking: Reported on 04/14/2024 08/01/23 07/31/24 Martir Keene MD ALPRAZolam (Xanax) 0.25 MG tablet take 1 tablet by mouth NIGHTLY NEEDED FOR SLEEP OR ANXIETY FORUP TO 90 DAYS Patient not taking: Reported on 04/14/2024 06/01/22 Martir Keene MD cyanocobalamin (Vitamin B-12) 100 MCG tablet Take 50 mcg by mouth in the morning. Historical Provider, Fluticasone Furoate-Vilanterol (BREO ELLIPTA IN) inhale 1 puff by mouth INTO THE LUNGS daily Inhalation for 30 Historical Provider, gabapentin (Neurontin) 100 MG capsule Take 300 mg by mouth 2 times daily. 03/12/22 Historical Provider, lansoprazole (Prevacid) [address] capsule Take 30 mg by mouth in the morning. 02/11/22 Historical Provider, losartan (Cozaar) 50 MG tablet Nightly. 02/06/22 Historical Provider, methylPREDNISolone (Medrol Dospak) 4 MG tablets Take as directed on package 04/20/24 05/20/24 Tatiana Adam, OPERATIONS AGENT - ELECTRIC CELL TENDER montelukast (Singulair) 10 MG tablet Take 1 tablet (10 mg) by mouth Nightly. 09/16/23 09/15/24 Martir Keene MD naloxone (Narcan) 4 mg/0.1 mL nasal spray instill 1 spray in 1 nostril if needed for OPIOID OVERDOSE may re... (REFER TO PRESCRIPTION NOTES). 08/16/22 Historical ProviderMD naloxone (Narcan) 4 mg/0.1 mL nasal spray Administer 1 spray (4 mg) into affected nostril(s) as needed for respiratory depression or opioid reversal. May repeat every 2-3 minutes if needed, alternating nostrils, until medical assistance becomes available. 04/15/24 04/15/25 Malaika Pack PA-C oxyCODONE (Roxicodone) 5 MG immediate release tablet Take 1 tablet (5 mg) by mouth every 6 hours asneeded for severe pain (7-10) (breakthrough post op pain) for up to 7 days. 04/27/24 05/04/24 IVY Michael CNP sertraline (Zoloft) 100 MG tablet take 2 tablets by mouth once daily 05/22/23 Martir Keene MD simvastatin (Zocor) 40 MG tablet take 1 tablet by mouth once daily 06/26/23 Martir Keene MD tiZANidine (Zanaflex) 4 MG tablet Take 1 tablet (4 mg) by mouth every 8 hours as needed for muscle spasms for up to 10 days. 04/27/24 05/07/24 IVY Michael CNP varenicline (Chantix Starting ) 0.5 MG X 11 & 1 MG X 42 tablet Use as directed on package instructions, try to quit smoking after 1 week. 02/25/24 Martir Keene MD varenicline (Chantix) 1 MG tablet Take 1 tablet (1 mg) by mouth 2 times daily. Take with full glassof water. Do not start before April 18, 2024. 04/18/24 06/17/24 Martir Keene MD oxyCODONE (Roxicodone) 5 MG immediate release tablet Take 1 tablet (5 mg) by mouth every 6 hours asneeded for severe pain (7-10) (breakthrough post op pain) for up to 7 days. 04/15/24 04/27/24 Malaika Pack PA-C tiZANidine (Zanaflex) 4 MG tablet Take 1 tablet (4 mg) by mouth every 8 hours as needed for muscle spasms for up to 10 days. 04/15/24 04/27/24 Malaika Pack PA-C Allergies: Lisinopril and Propranolol hcl Physical Examination: Vitals: 05/11/24 1318 BP: 92/54 Pulse: 81 Physical Exam Constitutional: Appearance: Normal appearance. HENT: Head: Normocephalic. Eyes: Extraocular Movements: Extraocular movements intact. Pupils: Pupils are equal, round, and reactive to light. Cardiovascular: Rate and Rhythm: Normal rate. Pulmonary: Effort: Pulmonary effort is normal. Abdominal: Palpations: Abdomen is soft. Musculoskeletal: General: Normal range of motion. Cervical back: Normal range of motion and neck supple. Skin: General: Skin is warm and dry. Neurological: General: No focal deficit present. Mental Status: She is alert. Psychiatric: Mood and Affect: Mood normal. Judgment: Judgment normal. Neurological Exam Mental Status Alert. Cranial Nerves CN III, IV, : Extraocular movements intact bilaterally. Pupils equal round and reactive to light bilaterally. Incision well-healed. There is no significant swelling around the area, no palpable fluctuance, no difficulty with breathing. ASSESSMENT / PLAN : She is status post a second ACDF where additional levels were done and her previous plate were removed. It is not surprising she is having some swallowing difficulties following this procedure. Her incision is healed very nicely without any evidence of a hematoma or infection. Will obtain plain films to check on her plate, will also give her referral to speech therapy to work on swallowing. She will contact the office when the x-rays are completed so we can review them and give her a call. I reassured her that her swelling should improve over some timeframe, and that it was not surprising sheis having some additional difficulties given the fact that this was the second time around procedure. Diagnosis Plan 1. Cervical stenosis of spinal canal XR cervical spine 2 or 3 views 2. Dysphagia, oropharyngeal [facility] [place] documented in this [facility]11-25-2024 History of Present illness Narrative* German Dietz MD - 04/27/2024 1:30 PM EST NEUROSURGERY and SPINE POST-OP NOTE Patient Name: Chantal Linares Patient : 1950 PCP: Martir Keene MD History of Present Ilness: Patient is post-op revision 5-7 ACDF with extension of fusion C4-C5 performed on 04/14/24. She reports continued mild dysphagia. She is able to tolerate liquids and soft foods. Her incision is healing nicely. Discussed lifting activity restrictions and collar use. She is interested in PT Past Medical History: Past Medical History: Diagnosis Date Acute bacterial sinusitis 09/07/2018 Adverse effect of anesthesia 2022 Do not want versed before going to operating room. Do not like effect Anxiety CAD (coronary artery disease) Chronic pain disorder 2019 Lumbar Spondolithesis, shoulder, arms left and right. Hands and wrists both hips Colon polyp 2011 COPD (chronic obstructive pulmonary disease) (HCC) Depression Diastolic dysfunction, left ventricle Diverticulosis Dizziness 2005 Ocassionaly. Worse since cervical radiculopathr and cervical myelopathy Fibromyalgia GERD (gastroesophageal reflux disease) Hiatal hernia 2010 Heartburn often especially under stress Hyperlipidemia Hypertension 2021 On losarton 50mg Irritable bowel syndrome Joint pain 2000 Back, ankles, wrists, hands, knees,neck Osteochondral lesion of talar dome SCHEDULED FOR THE SURGERY ON 08/16/22 AT [facility] (postoperative nausea and vomiting) Prediabetes controlled by diet Rheumatoid arthritis ([facility]) Shortness of breath 2019 Spondylolisthesis, lumbar region Past Surgical History: Past Surgical History: Procedure Laterality Date ANKLE ARTHROPLASTY 2022 Repair of peroneal tendon ANKLE SURGERY Right 08/16/2022 Right repair peroneal tendon and ankle arthroscopic debridement talar osteochondral lesion - Dr. Jimenez ANTERIOR CERVICAL DISCECTOMY W/ FUSION 04/14/2024 4-5 APPENDECTOMY CARDIAC CATHETERIZATION 10 11 2014 NO INTERVENTION CATARACT EXTRACTION CERVICAL FUSION 2015 Dr Dietz CHOLECYSTECTOMY COLON SURGERY 03 16 2013 approx; sigmoidectomy diverticulosis COLONOSCOPY 01 06 2013 colonic polyps, diverticulosis, hemorrhoids DILATION AND CURETTAGE OF UTERUS HYSTERECTOMY NECK SURGERY C5-C7 ACDF (Dr. Adam) TONSILLECTOMY AND ADENOIDECTOMY (HISTORICAL) TUBAL LIGATION UPPER GASTROINTESTINAL ENDOSCOPY 01 06 2013 see report Home Medications: Prior to Admission medications Medication Sig Start Date End Date Taking? Authorizing Provider albuterol (ProAir HFA) 108 (90 Base) MCG/ACT inhaler Inhale 2 puffs every 4 hours as needed for wheezing or shortness of breath. Patient not taking: Reported on 04/14/2024 08/01/23 07/31/24 Martir Keene MD ALPRAZolam (Xanax) 0.25 MG tablet take 1 tablet by mouth NIGHTLY NEEDED FOR SLEEP OR ANXIETY FORUP TO 90 DAYS Patient not taking: Reported on 04/14/2024 06/01/22 Martir Keene MD cyanocobalamin (Vitamin B-12) 100 MCG tablet Take 50 mcg by mouth in the morning. Historical Provider, Fluticasone Furoate-Vilanterol (BREO ELLIPTA IN) inhale 1 puff by mouth INTO THE LUNGS daily Inhalation for 30 Historical Provider, gabapentin (Neurontin) 100 MG capsule Take 300 mg by mouth 2 times daily. 03/12/22 Historical Provider, lansoprazole (Prevacid) [address] capsule Take 30 mg by mouth in the morning. 02/11/22 Historical Provider, losartan (Cozaar) 50 MG tablet Nightly. 02/06/22 Historical Provider, methylPREDNISolone (Medrol Dospak) 4 MG tablets Take as directed on package 04/20/24 05/20/24 Tatiana Adam, OPERATIONS AGENT - ELECTRIC CELL TENDER montelukast (Singulair) 10 MG tablet Take 1 tablet (10 mg) by mouth Nightly. 09/16/23 09/15/24 Martir Keene MD naloxone (Narcan) 4 mg/0.1 mL nasal spray instill 1 spray in 1 nostril if needed for OPIOID OVERDOSE may re... (REFER TO PRESCRIPTION NOTES). 08/16/22 Historical Provider, naloxone (Narcan) 4 mg/0.1 mL nasal spray Administer 1 spray (4 mg) into affected nostril(s) as needed for respiratory depression or opioid reversal. May repeat every 2-3 minutes if needed, alternating nostrils, until medical assistance becomes available. 04/15/24 04/15/25 Malaika Pack PA-C oxyCODONE (Roxicodone) 5 MG immediate release tablet Take 1 tablet (5 mg) by mouth every 6 hours asneeded for severe pain (7-10) (breakthrough post op pain) for up to 7 days. 04/27/24 05/04/24 IVY Michael CNP sertraline (Zoloft) 100 MG tablet take 2 tablets by mouth once daily 05/22/23 Martir Keene MD simvastatin (Zocor) 40 MG tablet take 1 tablet by mouth once daily 06/26/23 Martir Keene MD tiZANidine (Zanaflex) 4 MG tablet Take 1 tablet (4 mg) by mouth every 8 hours as needed for muscle spasms for up to 10 days. 04/27/24 05/07/24 IVY Michael CNP varenicline (Chantix Starting Month ) 0.5 MG X 11 & 1 MG X 42 tablet Use as directed on package instructions, try to quit smoking after 1 week. 02/25/24 Martir Keene MD varenicline (Chantix) 1 MG tablet Take 1 tablet (1 mg) by mouth 2 times daily. Take with full glassof water. Do not start before April 18, 2024. 04/18/24 06/17/24 Martir Keene MD oxyCODONE (Roxicodone) 5 MG immediate release tablet Take 1 tablet (5 mg) by mouth every 6 hours asneeded for severe pain (7-10) (breakthrough post op pain) for up to 7 days. 04/15/24 04/27/24 Malaika Pack PA-C tiZANidine (Zanaflex) 4 MG tablet Take 1 tablet (4 mg) by mouth every 8 hours as needed for muscle spasms for up to 10 days. 04/15/24 04/27/24 Malaika Pack PA-C Allergies: Lisinopril and Propranolol hcl Physical Examination: Vitals: 04/27/24 1342 BP: 105/71 Pulse: 84 Physical Exam Constitutional: Appearance: Normal appearance. HENT: Head: Normocephalic. Eyes: Extraocular Movements: Extraocular movements intact. Pupils: Pupils are equal, round, and reactive to light. Cardiovascular: Rate and Rhythm: Normal rate. Pulmonary: Effort: Pulmonary effort is normal. Abdominal: Palpations: Abdomen is soft. Musculoskeletal: General: Normal range of motion. Cervical back: Normal range of motion and neck supple. Skin: General: Skin is warm and dry. Neurological: General: No focal deficit present. Mental Status: She is alert. Psychiatric: Mood and Affect: Mood normal. Judgment: Judgment normal. Neurological Exam Mental Status Alert. Cranial Nerves CN III, IV, : Extraocular movements intact bilaterally. Pupils equal round and reactive to light bilaterally. Incision well approximated, no swelling/bleeding ASSESSMENT / PLAN : She is status post exploration C5-C7 ACDF, with removal of plate, followed with C4-C5 ACDF. She is doing very well, her preop symptoms are gone. She is swallowing okay. All of her questions were answered today. We will plan to see her back in 3 months time with new x-rays of the cervical spine. We also gave her a prescription to do outpatient physical therapy today. So far she and her arequite pleased with her surgical results and progress. Diagnosis Plan 1. Cervical stenosis of spinal canal External referral to Physical Therapy XR cervical spine 2 or 3 views documented in this encounterST[facility] [id number] Telephone encounter Note* Telephone Encounter - Ibis Lynch MA - 04/27/2024 8:43 AM EST Sent [employer] message. [facility] [id number] Miscellaneous Notes* Telephone Encounter - Ibis Lynch MA - 04/27/2024 8:43 AM EST Sent [employer] message. * Addendum Note - Tatiana Adam APRN - JOSE - 04/27/2024 8:23 AM ESTAddended by: TATIANA ADAM on: 04/27/2024 08:23 AM Modules accepted: Orders * Telephone Encounter - IVY Michael CNP - 04/27/2024 8:23 AM EST Refills sent * Telephone Encounter - Ibis Lynch MA - 04/24/2024 3:28 PM EST Pt called again requesting these refills. * Telephone Encounter - Ibis Lynch MA - 04/23/2024 11:53 AM EST Pt called requesting refills of the oxycodone and tizanidine to be sent to pharmacy * Telephone Encounter - Oralia Dupree RN - 04/22/2024 11:37 AM EST Post op and follow up call performed. Patient states she is experiencing some relief with just one full day of steroids. Patient encouraged to only consume meals she call tolerate to avoid choking. Patient states her pain is controlled with current regimen, denies needing refills at this time. She reports taking prophylactic colace, and denies any bowel concerns. She verbalized understanding of post op appointment, and instructed her to contact us with any questions or concerns. * Telephone Encounter - Oralia Dupree RN - 04/20/2024 2:51 PM EST Patient educated on medrol dosepak and verbalized understanding. * Telephone Encounter - IVY Michael CNP - 04/20/2024 2:12 PM EST I will send in a medrol dose pack for her; this is a steroid taper and should help with her swallowing difficulties * Addendum Note - IVY Michael CNP - 04/20/2024 2:12 PM ESTAddended by: TATIANA ADAM on: 04/20/2024 02:12 PM Modules accepted: Orders * Telephone Encounter - Oralia Dupree RN - 04/20/2024 2:09 PM EST Patient reports her swallowing has only worsened since surgery. She stated "I can barely swallow liquid". She has reported using ice to help the inflammation with no relief. Please advise. documented in this [facility]11-25-2024 Note* Addendum Note - IVY Michael CNP - 04/27/2024 8:23 AM ESTAddended by: TATIANA ADAM on: 04/27/2024 08:23 AM Modules accepted: Orders [facility] [id number] Note* Addendum Note - IVY Michael CNP - 04/27/2024 8:23 AM ESTAddended by: TATIANA DAAM on: 04/27/2024 08:23 AM Modules accepted: Orders [facility] [id number] Telephone encounter Note* Telephone Encounter - TatianaIVY Fernandez CNP - 04/27/2024 8:23 AM EST Refills sent [facility] [id number] Telephone encounter Note* Telephone Encounter - Ibis Lynch MA - 04/24/2024 3:28 PM EST Pt called again requesting these refills. [facility] [id number] Miscellaneous Notes* Telephone Encounter - Ibis Lynch MA - 04/24/2024 3:28 PM EST Pt called again requesting these refills. * Telephone Encounter - Ibis Lynch MA - 04/23/2024 11:53 AM EST Pt called requesting refills of the oxycodone and tizanidine to be sent to pharmacy * Telephone Encounter - Oralia Dupree RN - 04/22/2024 11:37 AM EST Post op and follow up call performed. Patient states she is experiencing some relief with just one full day of steroids. Patient encouraged to only consume meals she call tolerate to avoid choking. Patient states her pain is controlled with current regimen, denies needing refills at this time. She reports taking prophylactic colace, and denies any bowel concerns. She verbalized understanding of post op appointment, and instructed her to contact us with any questions or concerns. * Telephone Encounter - Oralia Dupree RN - 04/20/2024 2:51 PM EST Patient educated on medrol dosepak and verbalized understanding. * Telephone Encounter - IVY Michael CNP - 04/20/2024 2:12 PM EST I will send in a medrol dose pack for her; this is a steroid taper and should help with her swallowing difficulties * Addendum Note - IVY Michael CNP - 04/20/2024 2:12 PM ESTAddended by: TATIANA ADAM on: 04/20/2024 02:12 PM Modules accepted: Orders * Telephone Encounter - Oraila Dupree RN - 04/20/2024 2:09 PM EST Patient reports her swallowing has only worsened since surgery. She stated "I can barely swallow liquid". She has reported using ice to help the inflammation with no relief. Please advise. documented in this encounterSTrumbull [facility] Medical [id number] Telephone encounter Note* Telephone Encounter - Ibis Lynch MA - 04/23/2024 11:53 AM EST Pt called requesting refills of the oxycodone and tizanidine to be sent to pharmacy [id number] Miscellaneous Notes* Telephone Encounter - Ibis Lynch MA - 04/23/2024 11:53 AM EST Pt called requesting refills of the oxycodone and tizanidine to be sent to pharmacy * Telephone Encounter - Oralia Dupree RN - 04/22/2024 11:37 AM EST Post op and follow up call performed. Patient states she is experiencing some relief with just one full day of steroids. Patient encouraged to only consume meals she call tolerate to avoid choking. Patient states her pain is controlled with current regimen, denies needing refills at this time. She reports taking prophylactic colace, and denies any bowel concerns. She verbalized understanding of post op appointment, and instructed her to contact us with any questions or concerns. * Telephone Encounter - Oralia Dupree RN - 04/20/2024 2:51 PM EST Patient educated on medrol dosepak and verbalized understanding. * Telephone Encounter - IVY Michael CNP - 04/20/2024 2:12 PM EST I will send in a medrol dose pack for her; this is a steroid taper and should help with her swallowing difficulties * Addendum Note - IVY Michael CNP - 04/20/2024 2:12 PM ESTAddended by: TATIANA ADAM on: 04/20/2024 02:12 PM Modules accepted: Orders * Telephone Encounter - Oralia Dupree RN - 04/20/2024 2:09 PM EST Patient reports her swallowing has only worsened since surgery. She stated "I can barely swallow liquid". She has reported using ice to help the inflammation with no relief. Please advise. documented in this [facility]11-20-2024 Telephone encounter Note* Telephone Encounter - Oralia Dupree RN - 04/22/2024 11:37 AM EST Post op and follow up call performed. Patient states she is experiencing some relief with just one full day of steroids. Patient encouraged to only consume meals she call tolerate to avoid choking. Patient states her pain is controlled with current regimen, denies needing refills at this time. She reports taking prophylactic colace, and denies any bowel concerns. She verbalized understanding of post op appointment, and instructed her to contact us with any questions or concerns. [id number] Miscellaneous Notes* Telephone Encounter - Oralia Dupree RN - 04/22/2024 11:37 AM EST Post op and follow up call performed. Patient states she is experiencing some relief with just one full day of steroids. Patient encouraged to only consume meals she call tolerate to avoid choking. Patient states her pain is controlled with current regimen, denies needing refills at this time. She reports taking prophylactic colace, and denies any bowel concerns. She verbalized understanding of post op appointment, and instructed her to contact us with any questions or concerns. * Telephone Encounter - Oralia Dupree RN - 04/20/2024 2:51 PM EST Patient educated on medrol dosepak and verbalized understanding. * Telephone Encounter - IVY Michael CNP - 04/20/2024 2:12 PM EST I will send in a medrol dose pack for her; this is a steroid taper and should help with her swallowing difficulties * Addendum Note - IVY Michael CNP - 04/20/2024 2:12 PM ESTAddended by: TATIANA ADAM on: 04/20/2024 02:12 PM Modules accepted: Orders * Telephone Encounter - Oralia Dupree RN - 04/20/2024 2:09 PM EST Patient reports her swallowing has only worsened since surgery. She stated "I can barely swallow liquid". She has reported using ice to help the inflammation with no relief. Please advise. documented [facility]ST[id number] Telephone encounter Note* Telephone Encounter - Oralia Dupree RN - 04/20/2024 2:51 PM EST Patient educated on medrol dosepak and verbalized understanding. [id number] Miscellaneous Notes* Telephone Encounter - Oralia Dupree RN - 04/20/2024 2:51 PM EST Patient educated on medrol dosepak and verbalized understanding. * Telephone Encounter - IVY Michael CNP - 04/20/2024 2:12 PM EST I will send in a medrol dose pack for her; this is a steroid taper and should help with her swallowing difficulties * Addendum Note - IVY Michael CNP - 04/20/2024 2:12 PM ESTAddended by: TATIANA ADAM on: 04/20/2024 02:12 PM Modules accepted: Orders * Telephone Encounter - Oralia Dupree RN - 04/20/2024 2:09 PM EST Patient reports her swallowing has only worsened since surgery. She stated "I can barely swallow liquid". She has reported using ice to help the inflammation with no relief. Please advise. documented in this [facility]11-18-2024 Telephone encounter Note* Telephone Encounter - IVY Michael CNP - 04/20/2024 2:12 PM EST I will send in a medrol dose pack for her; this is a steroid taper and should help with her swallowing difficulties [place] [id number] Note* Addendum Note - IVY Michael CNP - 04/20/2024 2:12 PM ESTAddended by: TATIANA ADAM on: 04/20/2024 02:12 PM Modules accepted: Orders [place] [id number] Note* Addendum Note - IVY Michael CNP - 04/20/2024 2:12 PM ESTAddended by: TATIANA ADAM on: 04/20/2024 02:12 PM Modules accepted: Orders [place] [id number] Note* Addendum Note - IVY Michael CNP - 04/20/2024 2:12 PM ESTAddended by: TATIANA ADAM on: 04/20/2024 02:12 PM Modules accepted: [id number] Note* Addendum Note - IVY Michael CNP - 04/20/2024 2:12 PM ESTAddended by: TATIANA ADAM on: 04/20/2024 02:12 PM Modules accepted: Orders [id number] Note* Addendum Note - IVY Michael CNP - 04/20/2024 2:12 PM ESTAddended by: TATIANA ADAM on: 04/20/2024 02:12 PM Modules accepted: Orders [place] [id number] Note* Addendum Note - IVY Michael CNP - 04/20/2024 2:12 PM ESTAddended by: TATIANA ADAM on: 04/20/2024 02:12 PM Modules accepted: [id number] Note* Addendum Note - IVY Michael CNP - 04/20/2024 2:12 PM ESTAddended by: TATIANA ADAM on: 04/20/2024 02:12 PM Modules accepted: Orders [id number] Note* Addendum Note - IVY Michael CNP - 04/20/2024 2:12 PM ESTAddended by: TATIANA ADAM on: 04/20/2024 02:12 PM Modules accepted: Orders [facility] [id number] Telephone encounter Note* Telephone Encounter - Oralia Dupree RN - 04/20/2024 2:09 PM EST Patient reports her swallowing has only worsened since surgery. She stated "I can barely swallow liquid". She has reported using ice to help the inflammation with no relief. Please advise. [facility] [id number] Nurse Note* Michelle Briggs RN - 04/15/2024 2:48 PM EST Home going instructions given, patient verbalizes understanding. [place] [id number] Nurse Note* Michelle Briggs RN - 04/15/2024 2:48 PM EST Home going instructions given, patient verbalizes understanding. documented in this [facility]11-13-2024 NoteHospitalist Progress Note 04/15/2024 Subjective: Admit Date: 04/14/2024 PCP: Martir Keene MD Room#: [id number] A BRIEF HOSPITAL COURSE: Chantal is a 73 y.o. female pmhx below has a hx of cervical radiculopathy and neck pain and UE pain numbness, myelopathy symptoms. She has a history of a C5-C7 ACDF years ago. Most recent MRI cervical spine showed postop changes C5-C7 with a sizable disc bulge C4-C5 causing significant central canal and foraminal stenosis. she is s/p Exploration of C5-C7 ACDF, removal of plate C5-C7, C4-C5 anterior cervical decompression and fusion with Dr. Dietz 04/14/2024 Usacs consulted for medical management Seen and examined at bedside No acute overnight events. Enodrsed no BM yet - recommend stornger bowel regimen Denied having any acute medical complaints including cp, sob, bladder complaints, falls, N/v, abd pain. Care plan discussed with patient and bedside nurse Adult diet Regular 24HR INTAKE/OUTPUT: Intake/Output Summary (Last 24 hours) at 04/15/2024 1116 Last data filed at 04/15/2024 0608 Gross per 24 hour Intake 1675 ml Output 60 ml Net 1615 ml Past Medical History: Past Medical History: Diagnosis Date Acute bacterial sinusitis 09/07/2018 Adverse effect of anesthesia 2022 Do not want versed before going to operating room. Do not like effect Anxiety CAD (coronary artery disease) Chronic pain disorder 2018 Lumbar Spondolithesis, shoulder, arms left and right. Hands and wrists both hips Colon polyp 2011 COPD (chronic obstructive pulmonary disease) ([facility]) Depression Diastolic dysfunction, left ventricle Diverticulosis Dizziness 2004 Ocassionaly. Worse since cervical radiculopathr and cervical myelopathy Fibromyalgia GERD (gastroesophageal reflux disease) Hiatal hernia 2010 Heartburn often especially under stress Hyperlipidemia Hypertension 2021 On losarton 50mg Irritable bowel syndrome Joint pain 2000 Back, ankles, wrists, hands, knees,neck Osteochondral lesion of talar dome SCHEDULED FOR THE SURGERY ON 08/16/22 AT [facility] (postoperative nausea and vomiting) Prediabetes controlled by diet Rheumatoid arthritis ([facility]) Shortness of breath 2019 Spondylolisthesis, lumbar region LABS: CBC: Recent Labs 04/15/24 0008 WBC 12.2* RBC 3.93 HGB 12.1 HCT 37.6 MCV 95.7 RDW 13.6 PLT 323 BMP: Recent Labs 04/15/24 0008 NA 133* K 4.7 CL 100 CO2 25 BUN 12 CREATININE 0.48* GLUCOSE 144* CALCIUM 9.4 ANIONGAP 7 LIVER PROFILE:No results for input(s): "AST", "ALT", "BILITOT", "ALKPHOS", "PROT" in the last 72 hours. No lab exists for component: "LABALBU" PT/INR: No results for input(s): "PROTIME", "INR" in the last 72 hours. CARDIAC ENZYMES: No results for input(s): "TROPONINI" in the last 72 hours. Procalcitonin: No results found for: "PROCAL" COVID-19 PCR: No results for input(s): "COVID19" in the last 72 hours. Objective: Vitals: BP 124/88 (BP Location: Left arm, Patient Position: Lying) Pulse 92 Temp (!) 35.7 ?C (96.2 ?F) (Temporal) Resp 16 SpO2 92% Pulse Ox: SpO2 Av.9 % Min: 87 % Max: 97 % Supplemental O2: O2 Flow Rate (L/min): 2 L/min Physical Exam Neck: Comments: collar Cardiovascular: Heart sounds: Normal heart sounds. Pulmonary: Effort: No respiratory distress. Abdominal: General: Bowel sounds are normal. Neurological: Mental Status: She is alert and oriented to person, place, and time. Medications: Scheduled PRN acetaminophen, 650 mg, Oral, q6h tiotropium, 2 puff, Inhalation, Daily And albuterol, 1 puff, Inhalation, 4x daily atorvastatin, 20 mg, Oral, Nightly docusate sodium, 100 mg, Oral, BID gabapentin, 300 mg, Oral, BID losartan, 50 mg, Oral, Daily montelukast, 10 mg, Oral, Nightly pantoprazole, 40 mg, Oral, qAM AC polyethylene glycol (PEG) 3350, 17 g, Oral, Daily sertraline, 100 mg, Oral, Daily sodium chloride 0.9%, 10 mL, IntraVENous, 2 times per day PRN medications: bisacodyl, bisacodyl, morphine sulfate OR morphine sulfate, naloxone, ondansetron ODT OR ondansetron, oxyCODONE OR oxyCODONE, phenol, sodium chloride, sodium chloride 0.9%, tiZANidine Continuous sodium chloride, 75 mL/hr, Last Rate: 75 mL/hr (04/15/24 06) Assessment Acute, acute on chronic, unstable/uncontrolled chronic problems/diagnoses: Cervical stenosis and radiculopathy. S/p C4/C5 ACDF, removal of hardware C5-C7 with Dr. Dietz today 04/14/2024 Stable chronic problems affecting care, new non-acute diagnoses: Acute bacterial sinusitis Anxiety CAD Chronic pain disorder Colon polyp COPD Depression Diastolic dysfunction, left ventricle Diverticulosis Dizziness Fibromyalgia GERD Hiatal hernia Hyperlipidemia Hypertension Irritable bowel syndrome Joint pain Osteochondral lesion of talar dome Postoperative nausea and vomiting Prediabetes Rheumatoid arthritis Shortness of breath Spondyl (more content not included)...[facility]11-13-2024 History of Present illness Narrative* Jairo Phelps MD - 04/15/2024 11:16 AM EST Hospitalist Progress Note 04/15/2024 Subjective: Admit Date: 04/14/2024 PCP: Martir Keene MD Room#: [id number] A BRIEF HOSPITAL COURSE: Chantal is a 73 y.o. female pmhx below has a hx of cervical radiculopathy and neck pain and UE pain numbness, myelopathy symptoms. She has a history of a C5- C7 ACDF years ago. Most recent MRI cervical spine showed postop changes C5-C7 with a sizable disc bulge C4-C5 causing significant central canal and foraminal stenosis. she is s/p Exploration of C5-C7 ACDF, removal of plate C5-C7, C4-C5 anterior cervical decompression and fusion with Dr. Dietz 04/14/2024 Usacs consulted for medical management Seen and examined at bedside No acute overnight events. Enodrsed no BM yet - recommend stornger bowel regimen Denied having any acute medical complaints including cp, sob, bladder complaints, falls, N/v, abd pain. Care plan discussed with patient and bedside nurse Adult diet Regular 24HR INTAKE/OUTPUT: Intake/Output Summary (Last 24 hours) at 04/15/2024 1116 Last data filed at 04/15/2024 0608 Gross per 24 hour Intake 1675 ml Output 60 ml Net 1615 ml Past Medical History: Past Medical History: Diagnosis Date Acute bacterial sinusitis 09/07/2018 Adverse effect of anesthesia 2022 Do not want versed before going to operating room. Do not like effect Anxiety CAD (coronary artery disease) Chronic pain disorder 2018 Lumbar Spondolithesis, shoulder, arms left and right. Hands and wrists both hips Colon polyp 2011 COPD (chronic obstructive pulmonary disease) (HCC) Depression Diastolic dysfunction, left ventricle Diverticulosis Dizziness 2004 Ocassionaly. Worse since cervical radiculopathr and cervical myelopathy Fibromyalgia GERD (gastroesophageal reflux disease) Hiatal hernia 2010 Heartburn often especially under stress Hyperlipidemia Hypertension 2021 On losarton 50mg Irritable bowel syndrome Joint pain 1999 Back, ankles, wrists, hands, knees,neck Osteochondral lesion of talar dome SCHEDULED FOR THE SURGERY ON 08/16/22 AT [facility] (postoperative nausea and vomiting) Prediabetes controlled by diet Rheumatoid arthritis ([facility]) Shortness of breath 2018 Spondylolisthesis, lumbar region LABS: CBC: Recent Labs 04/15/24 0008 WBC 12.2* RBC 3.93 HGB 12.1 HCT 37.6 MCV 95.7 RDW 13.6 PLT 323 BMP: Recent Labs 04/15/24 0008 NA 133* K 4.7 CL 100 CO2 25 BUN 12 CREATININE 0.48* GLUCOSE 144* CALCIUM 9.4 ANIONGAP 7 LIVER PROFILE:No results for input(s): "AST", "ALT", "BILITOT", "ALKPHOS", "PROT" in the last 72 hours. No lab exists for component: "LABALBU" PT/INR: No results for input(s): "PROTIME", "INR" in the last 72 hours. CARDIAC ENZYMES: No results for input(s): "TROPONINI" in the last 72 hours. Procalcitonin: No results found for: "PROCAL" COVID-19 PCR: No results for input(s): "COVID19" in the last 72 hours. Objective: Vitals: BP 124/88 (BP Location: Left arm, Patient Position: Lying) Pulse 92 Temp (!) 35.7 C (96.2 F) (Temporal) Resp 16 SpO2 92% Pulse Ox: SpO2 Av.9 % Min: 87 % Max: 97 % Supplemental O2: O2 Flow Rate (L/min): 2 L/min Physical Exam Neck: Comments: collar Cardiovascular: Heart sounds: Normal heart sounds. Pulmonary: Effort: No respiratory distress. Abdominal: General: Bowel sounds are normal. Neurological: Mental Status: She is alert and oriented to person, place, and time. Medications: Scheduled PRN acetaminophen, 650 mg, Oral, q6h tiotropium, 2 puff, Inhalation, Daily And albuterol, 1 puff, Inhalation, 4x daily atorvastatin, 20 mg, Oral, Nightly docusate sodium, 100 mg, Oral, BID gabapentin, 300 mg, Oral, BID losartan, 50 mg, Oral, Daily montelukast, 10 mg, Oral, Nightly pantoprazole, 40 mg, Oral, qAM AC polyethylene glycol (PEG) 3350, 17 g, Oral, Daily sertraline, 100 mg, Oral, Daily sodium chloride 0.9%, 10 mL, IntraVENous, 2 times per day PRN medications: bisacodyl, bisacodyl, morphine sulfate OR morphine sulfate, naloxone, ondansetron ODT OR ondansetron, oxyCODONE OR oxyCODONE, phenol, sodium chloride, sodium chloride 0.9%, tiZANidine Continuous sodium chloride, 75 mL/hr, Last Rate: 75 mL/hr (04/15/24 0607) Assessment Acute, acute on chronic, unstable/uncontrolled chronic problems/diagnoses: Cervical stenosis and radiculopathy. S/p C4/C5 ACDF, removal of hardware C5-C7 with Dr. Dietz today 04/14/2024 Stable chronic problems affecting care, new non-acute diagnoses: Acute bacterial sinusitis Anxiety CAD Chronic pain disorder Colon polyp COPD Depression Diastolic dysfunction, left ventricle Diverticulosis Dizziness Fibromyalgia GERD Hiatal hernia Hyperlipidemia Hypertension Irritable bowel syndrome Joint pain Osteochondral lesion of talar dome Postoperative nausea and vomiting Prediabetes Rheumatoid arthritis Shortness of breath Spondylolisthesis, lumbar region Plan As a result of the above findings & factors, the following mgmt was pursued: - home meds as able - already on Htn and COPD meds - recommend stronger bowel regimen and monitor for signs of ileus/obstruction - rest per primary - am labs, replace lytes prn - PT/OT/CM/SW - delirium precautions: increase activity and limit nighttime disturbances - DVT prophylaxis: per stephani Advance Directive: Full Code Anticipated Discharge Per priry Extended Emergency Contact Information Primary Emergency Contact: Mathew Linares Mobile Relation: Spouse Secondary Emergency Contact: Coretta Hunter Mobile Relation: Child Jairo Phelps MD Division of Hospitalist Medicine [employer] * Tanesha Rosalesgg - 04/15/2024 10:54 AM EST Images from the original note were not included. PHYSICAL THERAPY [facility] Initial Evaluation Name/MRN: Chantal Linares ([id number]) Evaluation Date: 04/15/2024 Date of : 1950 Admission Date: 04/14/2024 5:52 AM Age: 73 y.o. [facility] A Discharge Recommendation: Home with assist PRN Equipment Needed: No Assessment IMPRESSION: Patient is a 73 y.o. female s/p C4-5 decompression/fusion as well as removal of hardware from C5-7 on 04/14. Patient reports being previously independent and is mainly just limited by pain. Patient required SBA for transfers, ambulation, and stairs. Patient would not benefit from acute PT at this time due to current mobility status being near baseline. Recommend home with assist PRN due to the patients adequate home set up and being able to stay and assist as needed. Admitting Diagnosis: C4-5 decompression/fusion secondary to cervical stenosis Prognosis: excellent Performance Deficits /Impairments: Increased Pain Decision Making: Low Complexity Subjective Patient was awake and alert sitting EOB upon arrival (RN just leaving room after giving pain medication). Patient agreeable to therapy and RN cleared session. Pain: 0-10 pain scale: 7/10 Location: Neck, Patient denies pain with mobility activities. Past Medical History: Past Medical History: Diagnosis Date Acute bacterial sinusitis 09/07/2018 Adverse effect of anesthesia 2022 Do not want versed before going to operating room. Do not like effect Anxiety CAD (coronary artery disease) Chronic pain disorder 2018 Lumbar Spondolithesis, shoulder, arms left and right. Hands and wrists both hips Colon polyp 2011 COPD (chronic obstructive pulmonary disease) ([facility]) Depression Diastolic dysfunction, left ventricle Diverticulosis Dizziness 2004 Ocassionaly. Worse since cervical radiculopathr and cervical myelopathy Fibromyalgia GERD (gastroesophageal reflux disease) Hiatal hernia 2010 Heartburn often especially under stress Hyperlipidemia Hypertension 2021 On losarton 50mg Irritable bowel syndrome Joint pain 1999 Back, ankles, wrists, hands, knees,neck Osteochondral lesion of talar dome SCHEDULED FOR THE SURGERY ON 08/16/22 AT [facility] (postoperative nausea and vomiting) Prediabetes controlled by diet Rheumatoid arthritis ([facility]) Shortness of breath 2019 Spondylolisthesis, lumbar region Past Surgical History: Past Surgical History: Procedure Laterality Date ANKLE ARTHROPLASTY 2022 Repair of peroneal tendon ANKLE SURGERY Right 08/16/2022 Right repair peroneal tendon and ankle arthroscopic debridement talar osteochondral lesion - Dr. Jimenez ANTERIOR CERVICAL DISCECTOMY W/ FUSION 04/14/2024 4-5 APPENDECTOMY CARDIAC CATHETERIZATION 10 11 2014 NO INTERVENTION CATARACT EXTRACTION CERVICAL FUSION 2015 Dr Dietz CHOLECYSTECTOMY COLON SURGERY 03 16 2013 approx; sigmoidectomy diverticulosis COLONOSCOPY 01 06 2013 colonic polyps, diverticulosis, hemorrhoids DILATION AND CURETTAGE OF UTERUS HYSTERECTOMY NECK SURGERY C5-C7 ACDF (Dr. Adam) TONSILLECTOMY AND ADENOIDECTOMY (HISTORICAL) TUBAL LIGATION UPPER GASTROINTESTINAL ENDOSCOPY 01 06 2013 see report Admission Diagnosis: Patient Active Problem List Diagnosis Date Noted Cervical stenosis of spinal canal 04/14/2024 History of non-ST elevation myocardial infarction (NSTEMI) 12/05/2021 Hyperlipidemia 05/18/2021 IBS (irritable bowel syndrome) 05/18/2021 Atherosclerosis of coronary artery 05/18/2021 Arthritis of right ankle 11/16/2020 Arthritis of left ankle 11/16/2020 Anxiety 05/21/2020 COPD, moderate (HCC) 05/21/2020 Arthritis of both acromioclavicular joints 03/29/2020 Tendonitis of both rotator cuffs 03/29/2020 Cervical myelopathy (HCC) 09/10/2019 Gastroesophageal reflux disease 06/16/2019 Diabetic on diet only (CMS/HCC) (HCC) 06/16/2019 Scalp psoriasis 06/16/2019 Loss of hair 06/16/2019 Generalized osteoarthritis 06/16/2019 Osteoarthritis of right AC (acromioclavicular) joint 03/05/2018 SYLVIE (generalized anxiety disorder) 04/02/2017 Medical Precautions: No active isolations Proper PPE donned/doffed in accordance with facility standards. Fall Risk: Wise Fall Risk Score: 35 (Medium Risk) Precautions/Restrictions: Braces or Orthoses: [place] Collar to be worn any time patient OOB Spine Precautions: C-Spine Precautions Family/Caregiver Present: none Overall Cognitive Status: WNL Overall Orientation Status: Oriented x4 Vision: not assessed this session Hearing: normal Social/Functional History Patient admitted from home. Lives With: Spouse Type of Home: single family home Home Layout: Single Level Home Home Access: Stairs to Enter with Rails (# of stairs: 2) Bathroom Shower/Tub: Walk in Shower and to install grab bars Toilet: Standard Home Equipment: none Homemaking Responsibilities: Independent Receives Help From: Spouse (as needed) Active Timber Estimator: Yes Prior Level of Function Prior Level of ADL Function: Independent Prior Level of Mobility: Independent; Device: None Prior Level of Transfers: Independent Objective Lower Extremity Assessment AROM: WFL PROM: WFL Strength: Exceptions: BLE at least a 3+/5 with stair navigation Sensation: Not assessed this session Balance: Balance During Session: Posture: good Sitting - Static: Independent Sitting - Dynamic: Independent Standing - Static: SBA Standing - Dynamic: SBA Bed Mobility: Not assessed due to patient being EOB upon entering. After session patient got up to the chair and was able to scoot back independently. Transfers Sit to stand: SBA Stand to sit: SBA Patient completed 1 sit<>stand transfer and was slightly impulsive. Completed with adequate mechanics and no verbal cueing. Ambulation Ambulation 1 Assistive device(s) used: None Assist level: SBA Distance (ft): 400 Quality of gait: No gait deviations Patient ambulated around half a lap around the unit included the stairs as well and denied rest breaks. Patient tolerated well. Stairs Stairs 1 Assistive device(s) used: None Assist level: SBA # of steps: around 12 (one flight up and down) Rails: right Additional factors: reciprocal going up, reciprocal going down Patient denied need for rest break and tolerated well. Outcome Measures AM-PAC How much HELP from another person do you currently need Turning from your back to your side while in a flat bed without using bedrails?: None Moving from lying on your back to sitting on the side of a flat bed without using bedrails?: None Moving to and from a bed to a chair (including a wheelchair)?: None Standing up from a chair using your arms (wheelchair or bedside chair)?: None Walking in a hospital room?: None Stair climbing assessed?: Yes Climbing 3-5 steps with a railing?+: None AM-PAC Inpatient Mobility Raw Score : 24 AM-PAC Inpatient Mobility Raw Score (No Stairs) : 20 JH-HLM JH-HLM Score: Walked 250 ft or more (i.e. several laps on unit) Plan No skilled acute PT indicated at this time. Please reconsult should changes occur. Safety/Education Safety Safety Devices in place: All fall risk precautions in place, call light within reach, left in chair, gait belt, and no alarms engaged upon entry Restraints: No Education Education Given To: patient Education Provided: PT Role, PT Goals, Plan of Care, and Discharge Recommendations Education Method: Verbal Barriers to Learning: None Education Outcome: Verbalized Understanding Goals Patient Stated Goal: to go home Encounter Problems Encounter Problems (Active) Pain - Adult Therapy Time Individual Co-treatment Time In 922 Time Out 0946 Minutes 23 Timed Code Treatment Minutes: 10 Minutes Tanesha Guzman Patient's Physical Therapy Plan of Care supervision is transferred to a [facility] Therapy Services Physical Therapist. Goals and/or treatment plan was established in collaboration with patient/family/other representatives. Cosigned by Brenda Watson, PT at 04/15/2024 1:26 PM EST * Frank Diallo, OT - 04/15/2024 9:55 AM EST Images from the original note were not included. OCCUPATIONAL THERAPY [facility] Initial Evaluation Name/MRN: Chantal Linares ([id number]) Evaluation Date: 04/15/2024 Date of : 1950 Admission Date: 04/14/2024 5:52 AM Age: 73 y.o. Room/Bed: -6110/6110 A Discharge Recommendation: Home with assist PRN Assessment IMPRESSION: Patient admitted from home, lives with and is typically independent with ADLs at baseline and denies use of an assistive device for mobility prior to admission. Patient up in chair upon arrival with collar in place. Demos modified independence with functional transfers and mobility in room to bathroom without assist and had no loss of balance. Patient educated on how to adjustcollar for comfort and patient was able to demonstrate understanding. Patient has within functionallimits active range of motion of bilateral upper extremities, shoulders both kept below 90 degrees.At this time patient has no acute OT needs will sign off. Admitting Diagnosis: re exploration of fusion C5-C7, C4-C5 ACDF Performance Deficits /Impairments: Increased Pain and Decreased Sensation Prognosis: Good Decision Making: Low Complexity Subjective In chair, agreeable Pain: Palafox-Blue Pain Ratin = Hurts little more Pain Location: surgical Past Medical History: Past Medical History: Diagnosis Date Acute bacterial sinusitis 09/07/2018 Adverse effect of anesthesia 2022 Do not want versed before going to operating room. Do not like effect Anxiety CAD (coronary artery disease) Chronic pain disorder 2018 Lumbar Spondolithesis, shoulder, arms left and right. Hands and wrists both hips Colon polyp 2011 COPD (chronic obstructive pulmonary disease) ([facility]) Depression Diastolic dysfunction, left ventricle Diverticulosis Dizziness 2004 Ocassionaly. Worse since cervical radiculopathr and cervical myelopathy Fibromyalgia GERD (gastroesophageal reflux disease) Hiatal hernia 2010 Heartburn often especially under stress Hyperlipidemia Hypertension 2021 On losarton 50mg Irritable bowel syndrome Joint pain 2000 Back, ankles, wrists, hands, knees,neck Osteochondral lesion of talar dome SCHEDULED FOR THE SURGERY ON 08/16/22 AT [facility] (postoperative nausea and vomiting) Prediabetes controlled by diet Rheumatoid arthritis ([facility]) Shortness of breath 2019 Spondylolisthesis, lumbar region Past Surgical History: Past Surgical History: Procedure Laterality Date ANKLE ARTHROPLASTY 2022 Repair of peroneal tendon ANKLE SURGERY Right 08/16/2022 Right repair peroneal tendon and ankle arthroscopic debridement talar osteochondral lesion - Dr. Jimenez ANTERIOR CERVICAL DISCECTOMY W/ FUSION 04/14/2024 4-5 APPENDECTOMY CARDIAC CATHETERIZATION 10 11 2014 NO INTERVENTION CATARACT EXTRACTION CERVICAL FUSION 2015 Dr Dietz CHOLECYSTECTOMY COLON SURGERY 03 16 2013 approx; sigmoidectomy diverticulosis COLONOSCOPY 01 06 2013 colonic polyps, diverticulosis, hemorrhoids DILATION AND CURETTAGE OF UTERUS HYSTERECTOMY NECK SURGERY C5-C7 ACDF (Dr. Adam) TONSILLECTOMY AND ADENOIDECTOMY (HISTORICAL) TUBAL LIGATION UPPER GASTROINTESTINAL ENDOSCOPY 01 06 2013 see report Admission Diagnosis: Patient Active Problem List Diagnosis Date Noted Cervical stenosis of spinal canal 04/14/2024 History of non-ST elevation myocardial infarction (NSTEMI) 12/05/2021 Hyperlipidemia 05/18/2021 IBS (irritable bowel syndrome) 05/18/2021 Atherosclerosis of coronary artery 05/18/2021 Arthritis of right ankle 11/16/2020 Arthritis of left ankle 11/16/2020 Anxiety 05/21/2020 COPD, moderate (HCC) 05/21/2020 Arthritis of both acromioclavicular joints 03/29/2020 Tendonitis of both rotator cuffs 03/29/2020 Cervical myelopathy (HCC) 09/10/2019 Gastroesophageal reflux disease 06/16/2019 Diabetic on diet only ([facility]/HCC) (HCC) 06/16/2019 Scalp psoriasis 06/16/2019 Loss of hair 06/16/2019 Generalized osteoarthritis 06/16/2019 Osteoarthritis of right AC (acromioclavicular) joint 03/05/2018 SYLVIE (generalized anxiety disorder) 04/02/2017 Medical Precautions: No active isolations Proper PPE donned/doffed in accordance with facility standards. Fall Risk: Wise Fall Risk Score: 35 (Medium Risk) Precautions/Restrictions: Braces or Orthoses: collar Spine Precautions: C-Spine Precautions Family/Caregiver Present: none Overall Cognitive Status: WNL Overall Orientation Status: Oriented x4 Social/Functional History Patient admitted from home. Lives With: Spouse Type of Home: single family home Home Layout: Single Level Home Home Access: Stairs to Enter with Rails (# of stairs: 2) Bathroom Shower/Tub: Shower Chair with Back, Walk in Shower, and Grab Bars Toilet: Handicap Height Home Equipment: front wheeled walker Homemaking Responsibilities: Independent Receives Help From: None Active Timber Estimator: Yes Prior Level of Function Prior Level of ADL Function: Independent Prior Level of Mobility: Independent; Device: None Prior Level of Transfers: Independent Objective ADLs LE Dressing: Modified Independent Toileting: Modified Independent Grooming: Modified Independent Estimated based on clinical judgment, patient able to stand at sink and bathroom for training on adjusting collar and mirror. Upper Extremity Assessment AROM: Exceptions: Within functional limits in bilateral upper extremities, shoulders Below 90 degrees, and distal joints within functional limits bilaterally PROM: Not assessed this session Strength: Exceptions: Bilateral hand speed runner strength within functional limits Vision: no visual deficits Hearing: normal Bed Mobility In chair Transfers/Functional Mobility Sit to stand: Modified Independent Stand to sit: Modified Independent Sitting balance: Modified Independent Standing balance: Modified Independent Functional mobility: Modified Independent Device(s) used: None Coordination: WNL Tone: WNL AM-PAC AM-PAC Inpatient Daily Activity Raw Score: 24 ADL Inpatient CMS G-Code Modifier: CH Plan No skilled acute OT indicated at this time. Please reconsult should changes occur. Safety/Education Safety Safety Devices in place: All fall risk precautions in place, call light within reach, and left in chair Restraints: No Education Education Given To: patient Education Provided: OT Role and Plan of Care Education Method: Verbal Barriers to Learning: None Education Outcome: Verbalized Understanding Goals Patient Stated Goal: Home Therapy Time Individual Co-treatment Time In 0955 Time Out 1012 Minutes 17 Frank Diallo OT Patient's Occupational Therapy Plan of Care supervision is transferred to a [facility] Therapy Services Occupational Therapist. Goals and/or treatment plan was established in collaboration with patient/family/other representatives. * Malaika Pack PA-C - 04/15/2024 8:53 AM EST 73yo f s/p re explore fusion C5-C7, C4-C5 ACDF yesterday with Dr. Dietz. States she is having some neck and head pain. This is manageable with medication. She has not yet worked with PT. She would like to go home today. Drain 10cc last shift. PE Awake and alert Strength 5/5 in BUE, no focal deficits Incision c/d/I Dressing c/d/I Drain in place and working well AP POD1 re explore fusion C5-C7, C4-C5 ACDF with Dr[address] Dietz. She is recovering in an expected manner. Her drain was removed with catheter tip intact. Plan for discharge home today. Patient would liketo work with PT before discharge. Discharge instructions given. Follow up with Dr. Dietz in 2 weeks. Malaika Pack PA-C documented in this [facility]11-13-2024 NotePHYSICAL THERAPY [facility] Initial Evaluation Name/MRN: Chantal Linares ([id number]) Evaluation Date: 04/15/2024 Date of : 1950 Admission Date: 04/14/2024 5:52 AM Age: 73 y.o. Room/Bed: 6110/6110 A Discharge Recommendation: Home with assist PRN Equipment Needed: No Assessment IMPRESSION: Patient is a 73 y.o. female s/p C4-5 decompression/fusion as well as removal of hardware from C5-7 on 04/14. Patient reports being previously independent and is mainly just limited by pain. Patient required SBA for transfers, ambulation, and stairs. Patient would not benefit from acute PT at this time due to current mobility status being near baseline. Recommend home with assist PRN due to the patients adequate home set up and being able to stay and assist as needed. Admitting Diagnosis: C4-5 decompression/fusion secondary to cervical stenosis Prognosis: excellent Performance Deficits /Impairments: Increased Pain Decision Making: Low Complexity Subjective Patient was awake and alert sitting EOB upon arrival (RN just leaving room after giving pain medication). Patient agreeable to therapy and RN cleared session. Pain: 0-10 pain scale: 7/10 Location: Neck, Patient denies pain with mobility activities. Past Medical History: Past Medical History: Diagnosis Date Acute bacterial sinusitis 09/07/2018 Adverse effect of anesthesia 2022 Do not want versed before going to operating room. Do not like effect Anxiety CAD (coronary artery disease) Chronic pain disorder 2019 Lumbar Spondolithesis, shoulder, arms left and right. Hands and wrists both hips Colon polyp 2011 COPD (chronic obstructive pulmonary disease) ([facility]) Depression Diastolic dysfunction, left ventricle Diverticulosis Dizziness 2005 Ocassionaly. Worse since cervical radiculopathr and cervical myelopathy Fibromyalgia GERD (gastroesophageal reflux disease) Hiatal hernia 2010 Heartburn often especially under stress Hyperlipidemia Hypertension 2021 On losarton 50mg Irritable bowel syndrome Joint pain 1999 Back, ankles, wrists, hands, knees,neck Osteochondral lesion of talar dome SCHEDULED FOR THE SURGERY ON 08/16/22 AT [facility] (postoperative nausea and vomiting) Prediabetes controlled by diet Rheumatoid arthritis ([facility]) Shortness of breath 2019 Spondylolisthesis, lumbar region Past Surgical History: Past Surgical History: Procedure Laterality Date ANKLE ARTHROPLASTY 2022 Repair of peroneal tendon ANKLE SURGERY Right 08/16/2022 Right repair peroneal tendon and ankle arthroscopic debridement talar osteochondral lesion - Dr. Jimenez ANTERIOR CERVICAL DISCECTOMY W/ FUSION 04/14/2024 4-5 APPENDECTOMY CARDIAC CATHETERIZATION 10 11 2014 NO INTERVENTION CATARACT EXTRACTION CERVICAL FUSION 2015 Dr Dietz CHOLECYSTECTOMY COLON SURGERY 03 16 2013 approx; sigmoidectomy diverticulosis COLONOSCOPY 01 06 2013 colonic polyps, diverticulosis, hemorrhoids DILATION AND CURETTAGE OF UTERUS HYSTERECTOMY NECK SURGERY C5-C7 ACDF (Dr. Adam) TONSILLECTOMY AND ADENOIDECTOMY (HISTORICAL) TUBAL LIGATION UPPER GASTROINTESTINAL ENDOSCOPY 01 06 2013 see report Admission Diagnosis: Patient Active Problem List Diagnosis Date Noted Cervical stenosis of spinal canal 04/14/2024 History of non-ST elevation myocardial infarction (NSTEMI) 12/05/2021 Hyperlipidemia 05/18/2021 IBS (irritable bowel syndrome) 05/18/2021 Atherosclerosis of coronary artery 05/18/2021 Arthritis of right ankle 11/16/2020 Arthritis of left ankle 11/16/2020 Anxiety 05/21/2020 COPD, moderate (HCC) 05/21/2020 Arthritis of both acromioclavicular joints 03/29/2020 Tendonitis of both rotator cuffs 03/29/2020 Cervical myelopathy (HCC) 09/10/2019 Gastroesophageal reflux disease 06/16/2019 Diabetic on diet only (CMS/HCC) (HCC) 06/16/2019 Scalp psoriasis 06/16/2019 Loss of hair 06/16/2019 Generalized osteoarthritis 06/16/2019 Osteoarthritis of right AC (acromioclavicular) joint 03/05/2018 SYLVIE (generalized anxiety disorder) 04/02/2017 Medical Precautions: No active isolations Proper PPE donned/doffed in accordance with facility standards. Fall Risk: Wise Fall Risk Score: 35 (Medium Risk) Precautions/Restrictions: Braces or Orthoses: [place] Collar to be worn any time patient OOB Spine Precautions: C-Spine Precautions Family/Caregiver Present: none Overall Cognitive Status: WNL Overall Orientation Status: Oriented x4 Vision: not assessed this session Hearing: normal Social/Functional History Patient admitted from home. Lives With: Spouse Type of Home: single family home Home Layout: Single Level Home Home Access: Stairs to Enter with Rails (# of stairs: 2) Bathroom Shower/Tub: Walk in Shower and to install grab bars Toilet: Standard Home Equipment: none Homemaking Responsibilities: Independent Receives Help From: Spouse (as needed) Active Timber Estimator: Y (more content not included)...[id number] NoteOCCUPATIONAL THERAPY [facility] Initial Evaluation Name/MRN: Chantal Linares ([id number]) Evaluation Date: 04/15/2024 Date of : 1950 Admission Date: 04/14/2024 5:52 AM Age: 73 y.o. Room/Bed: [facility]10/6110 A Discharge Recommendation: Home with assist PRN Assessment IMPRESSION: Patient admitted from home, lives with and is typically independent with ADLs at baseline and denies use of an assistive device for mobility prior to admission. Patient up in chair upon arrival with collar in place. Demos modified independence with functional transfers and mobility in room to bathroom without assist and had no loss of balance. Patient educated on how to adjust collar for comfort and patient was able to demonstrate understanding. Patient has within functional limits active range of motion of bilateral upper extremities, shoulders both kept below 90 degrees. At this time patient has no acute OT needs will sign off. Admitting Diagnosis: re exploration of fusion C5-C7, C4-C5 ACDF Performance Deficits /Impairments: Increased Pain and Decreased Sensation Prognosis: Good Decision Making: Low Complexity Subjective In chair, agreeable Pain: Palafox-Blue Pain Ratin = Hurts little more Pain Location: surgical Past Medical History: Past Medical History: Diagnosis Date Acute bacterial sinusitis 09/07/2018 Adverse effect of anesthesia 2022 Do not want versed before going to operating room. Do not like effect Anxiety CAD (coronary artery disease) Chronic pain disorder 2018 Lumbar Spondolithesis, shoulder, arms left and right. Hands and wrists both hips Colon polyp 2011 COPD (chronic obstructive pulmonary disease) (HCC) Depression Diastolic dysfunction, left ventricle Diverticulosis Dizziness 2004 Ocassionaly. Worse since cervical radiculopathr and cervical myelopathy Fibromyalgia GERD (gastroesophageal reflux disease) Hiatal hernia 2010 Heartburn often especially under stress Hyperlipidemia Hypertension 2021 On losarton 50mg Irritable bowel syndrome Joint pain 1999 Back, ankles, wrists, hands, knees,neck Osteochondral lesion of talar dome SCHEDULED FOR THE SURGERY ON 08/16/22 AT [facility] (postoperative nausea and vomiting) Prediabetes controlled by diet Rheumatoid arthritis ([facility]) Shortness of breath 2019 Spondylolisthesis, lumbar region Past Surgical History: Past Surgical History: Procedure Laterality Date ANKLE ARTHROPLASTY 2022 Repair of peroneal tendon ANKLE SURGERY Right 08/16/2022 Right repair peroneal tendon and ankle arthroscopic debridement talar osteochondral lesion - Dr. Jimenez ANTERIOR CERVICAL DISCECTOMY W/ FUSION 04/14/2024 4-5 APPENDECTOMY CARDIAC CATHETERIZATION 10 11 2014 NO INTERVENTION CATARACT EXTRACTION CERVICAL FUSION 2015 Dr Dietz CHOLECYSTECTOMY COLON SURGERY 03 16 2013 approx; sigmoidectomy diverticulosis COLONOSCOPY 01 06 2013 colonic polyps, diverticulosis, hemorrhoids DILATION AND CURETTAGE OF UTERUS HYSTERECTOMY NECK SURGERY C5-C7 ACDF (Dr. Adam) TONSILLECTOMY AND ADENOIDECTOMY (HISTORICAL) TUBAL LIGATION UPPER GASTROINTESTINAL ENDOSCOPY 01 06 2013 see report Admission Diagnosis: Patient Active Problem List Diagnosis Date Noted Cervical stenosis of spinal canal 04/14/2024 History of non-ST elevation myocardial infarction (NSTEMI) 12/05/2021 Hyperlipidemia 05/18/2021 IBS (irritable bowel syndrome) 05/18/2021 Atherosclerosis of coronary artery 05/18/2021 Arthritis of right ankle 11/16/2020 Arthritis of left ankle 11/16/2020 Anxiety 05/21/2020 COPD, moderate (HCC) 05/21/2020 Arthritis of both acromioclavicular joints 03/29/2020 Tendonitis of both rotator cuffs 03/29/2020 Cervical myelopathy (HCC) 09/10/2019 Gastroesophageal reflux disease 06/16/2019 Diabetic on diet only (CMS/HCC) (HCC) 06/16/2019 Scalp psoriasis 06/16/2019 Loss of hair 06/16/2019 Generalized osteoarthritis 06/16/2019 Osteoarthritis of right AC (acromioclavicular) joint 03/05/2018 SYLVIE (generalized anxiety disorder) 04/02/2017 Medical Precautions: No active isolations Proper PPE donned/doffed in accordance with facility standards. Fall Risk: Wise Fall Risk Score: 35 (Medium Risk) Precautions/Restrictions: Braces or Orthoses: collar Spine Precautions: C-Spine Precautions Family/Caregiver Present: none Overall Cognitive Status: WNL Overall Orientation Status: Oriented x4 Social/Functional History Patient admitted from home. 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 Post-operatively, the patient was transferred to the orthopaedic spine floor. They received 24 hours of prophylactic intravenous antibiotics. DVT prophylaxis included SCDs and early ambulation. The patient was able to tolerate a regular diet and their pain was reasonably controlled. The patient progressed well throughout the hospitalization and was deemed stable for discharge on above listed date. SIGNIFICANT DIAGNOSTIC STUDIES: CBC/BMP CONSULTANTS: PT/OT Medicine RECOMMENDED NEXT STEPS: Follow up with Dr. Dietz in 2 weeks DISCHARGE MEDICATIONS: Medication List ASK your doctor about these medications albuterol 108 (90 Base) MCG/ACT inhaler Commonly known as: ProAir HFA Inhale 2 puffs every 4 hours as needed for wheezing or shortness of breath. ALPRAZolam 0.25 MG tablet Commonly known as: Xanax take 1 tablet by mouth NIGHTLY NEEDED FOR SLEEP OR ANXIETY FOR UP TO 90 DAYS BREO ELLIPTA IN budesonide-formoterol 160-4.5 MCG/ACT inhaler Commonly known as: Symbicort Inhale 2 puffs in the morning and 2 puffs in the evening. Rinse mouth with water after use to reduce aftertaste and incidence of candidiasis. Do not swallow.. cyanocobalamin 100 MCG tablet Commonly known as: Vitamin B-12 gabapentin 100 MG capsule Commonly known as: Neurontin lansoprazole [address] capsule Commonly known as: Prevacid losartan 50 MG tablet Commonly known as: Cozaar montelukast 10 MG tablet Commonly known as: Singulair Take 1 tablet (10 mg) by mouth Nightly. naloxone 4 mg/0.1 mL nasal spray Commonly known as: Narcan sertraline 100 MG tablet Commonly known as: Zoloft take 2 tablets by mouth once daily simvastatin 40 MG tablet Commonly known as: Zocor take 1 tablet by mouth once daily tiZANidine 4 MG tablet Commonly known as: Zanaflex traMADol 50 MG tablet Commonly known as: Ultram * varenicline 0.5 MG X 11 & 1 MG X 42 tablet Commonly known as: Chantix Starting Month Rosalio Use as directed on package instructions, try to quit smoking after 1 week. * varenicline 1 MG tablet Commonly known as: Chantix Take 1 tablet (1 mg) by mouth 2 times daily. Take with full glass of water. Do not start before April 18, 2024. Start taking on: April 18, 2024 * This list has 2 medication(s) that are the same as other medications prescribed for you. Read the directions carefully, and ask your doctor or other care provider to review them with you. DIET: Adult diet Regular ACTIVITY: No heavy lifting. COMPLEXITY OF FOLLOW UP: [x] Moderate Complexity: follow up within 7-14 calendar days (03223) [] Severe Complexity: follow up within 7 calendar days (76111) FOLLOW UP TESTING, PENDING RESULTS OR REFERRALS AT TRANSITIONAL CARE VISIT: [] Yes [x] No PENDING STUDIES: N/A DISPOSITION: Home FACILITY/HOME CARE AGENCY NAME: N/A Follow up with German Dietz MD [id number] [facility] [id number] Follow up on 04/27/2024 INSTRUCTIONS TO MA/SW: Please call patient on day after discharge (must document patient contacted within 2 business days of discharge). FOLLOW UP QUESTIONS FOR MA/SW: 1. Did you get medications filled and taking them as instructed from discharge? 2. Are you following your discharge instructions from your hospital stay? 3. Please confirm patient is scheduled for a follow up appointment within the above time frame. SIGNED: Malaika Pack PA-C 04/15/2024, 8:57 [facility]11-13-2024 Hospital Discharge instructions* Discharge Instructions* Malaika Pack PA-C - 04/15/2024 8:57 AM EST Wound care: Keep incision open to air, do not apply creams or lotions to incision You may shower, but do not soak in a tub or pool Call the office immediately if you notice any drainage, pus, or signs of infection General Instructions: No lifting greater than 10 pounds for [address] while using opioid pain medications or muscle relaxants Limit twisting, turning, and bending motions at the neck Avoid NSAIDs such as Ibuprofen, Advil, Aleve, Naproxen, and Mobic Wear C-collar when riding in a car or if restless sleeper, may be removed for rest, eating, and hygiene Pain medication may constipate you requiring strong laxatives such as milk of magnesia or magnesiumcitrate Vitamin D3 5,000 units daily and calcium in diet are good for healing of fusion Avoid all nicotine products as they will stop the healing of your fusion Follow up with Dr. Dietz on 04/27/2024 Call the office with any questions or concerns, documented in this [facility]11-13-2024 NoteProblem: Pain - Adult Goal: Verbalizes/displays adequate comfort level or baseline comfort level Outcome: Progressing Problem: Safety - Adult Goal: Free from fall injury [facility] Plan of care note* Care Plan - Modesto Tavarez RN - 04/15/2024 6:00 AM EST Problem: Pain - Adult Goal: Verbalizes/displays adequate comfort level or baseline comfort level Outcome: Progressing Problem: Safety - Adult Goal: Free from fall injury Outcome: Progressing [id number] Miscellaneous Notes* Care Plan - Modesto Tavarez RN - 04/15/2024 6:00 AM EST Problem: Pain - Adult Goal: Verbalizes/displays adequate comfort level or baseline comfort level Outcome: Progressing Problem: Safety - Adult Goal: Free from fall injury Outcome: Progressing * Perioperative Nursing Note - Chetna Eric RN - 04/14/2024 2:51 PM EST Pt up to the bathroom, with assist; gait steady; C.C intact; void without difficulty; family at bedside; returned to bed, awaiting room * Op Note - German Dietz MD - 04/14/2024 7:30 AM EST OPERATIVE NOTE Patient Name: Chantal Linares : 1950 DATE OF PROCEDURE: 04/14/2024 SURGEON: German Dietz MD OVERHEAD CLEANER MAINTAINER: Tatiana Adam CNP PREOPERATIVE DIAGNOSES: Cervical stenosis, cervical radiculopathy POSTOPERATIVE DIAGNOSES: Same PROCEDURE: Exploration of C5-C7 ACDF, removal of plate C5-C7, C4-C5 anterior cervical decompressionand fusion ANESTHESIA: General ESTIMATED BLOOD LOSS: 20 INDICATION FOR PROCEDURE: Mrs. Linares is a 73-year-old female with a history of a C5-C7 ACDF years ago. She presented with new symptoms of cervical radiculopathy. MRI cervical spine showed postop changes C5-C7 with a sizable disc bulge C4-C5 causing significant central canal and foraminal stenosis. Risks and benefits of ACDF and removal of previous plate were discussed with her, she wished to proceed. DESCRIPTION OF PROCEDURE: Patient was brought to the op room general endotracheal esthesia was induced. She had spinal cord monitoring leads placed. She is lying supine on operative table, her head rested on a donut. Her arms were tucked and padded her side appropriately shoulders were gently tapedand allow better visualization of the cervical spine via C arm. C-arm was brought in field approximate the C4-C5 level, this is marked surgical marker and she was prepped and draped in the normal sterile fashion. After appropriate timeout identifying the patient, the level surgery type surgery point 5% Marcaine with epinephrine was instilled future incision. Skin incision was made to level platysma. Supraplatysmal dissection was carried out. Platysma was opened vertically to the midline the anterior border of the sternocleidomastoid was identified, the carotid artery was identified a Lateral exposure. When the anterior cervical spine was reached, the anterior cervical plate from C5-C7 was identified. It was thoroughly exposed and the screws from C5-C7 were exposed. The universal removal set was used to find a screwdriver of appropriate size to remove the screws. Once the screws were removed the plate was able to be removed and the excess fusion from C5 to see 7 was explored. There wassolid bony fusion with no abnormal motion at C5-C6 or C6-C7. We are then able to identify the C4-U0wdoca at the superior aspect just above the top of the plate. Cicero pins were placed in the 4 and C5 gentle distraction placed on him retractors were put in place. Then the discectomy at C4-C5 was carried out on the microscope with pituitary drill 1 and 2 mm Kerrisons the up-biting curette. The PLL was reached and resected across the span of the disc base. There was sizable osteophytes bilaterally especially at on the right when the decompression was complete the proximal end of each root was identified. The endplates were prepared with ring curette and rasp. A 7 mm titanium cage stuffed with DBX was placed at the C4-C5 level. This cage was separate and distinct from the anterior cervical plate. Following this an anterior cervical plate by [employer] was placed with 15 mm screws. Because there was solid fusion from see 5 to C7 we did not replace the plate there we just placed a plate from C4-C5. The wound was then blanka irrigated out retractors removed wound allowed to sit for severalminutes confirm there is good hemostasis. Then a 10 Cuban round ASMITA drain was placed. The platysma was closed with interrupted 3-0 Vicryl sutures followed by subcuticular up to 3-0 Vicryl sutures with Mastisol and Steri-Strips on the skin. 3-0 Vicryl was used so ASMITA drain in place. Sterile dressing was placed. She was extubated taken recovery in stable fashion. All of her spinal cord signals were the same at the end of the case compared to beginning. There is no neurosurgical resident available to assist the case, the nurse practitioner assisted to provide suction retraction assistance with opening closing allow the case to be performed safely. documented in this [facility]11-12-2024 Consult note* Johnnyjaredbarber Servin IVY Posey - ELECTRIC CELL TENDER - 04/14/2024 4:31 PM ESTAssociated Order(s): IP CONSULT TO INTERNAL MEDICINE Images from the original note were not included. Hospital Medicine Consult Patient - Chantal Linares, Age - 73 y.o. - 1950 Room Number - [id number] A Consulting - German Dietz MD Primary Care Physician - [id number] Date of Admission - 04/14/2024 5:52 AM Hospital Day - 0 Reason for Consult: Medical Management HISTORY OF PRESENT ILLNESS: Chantal is a 73 y.o. female pmhx below has a hx of cervical radiculopathy and neck pain and UE pain numbness, myelopathy symptoms. She has a history of a C5- C7 ACDF years ago. Most recent MRI cervical spine showed postop changes C5-C7 with a sizable disc bulge C4-C5 causing significant central canal and foraminal stenosis. Today she is s/p Exploration of C5-C7 ACDF, removal of plate C5-C7, [id number] cervical decompression and fusion today with Dr. Dietz 04/14/2024. She recovered in the PACU with no complications and transferred to with no difficulty. [facility] [place] for postoperative medical management. On assessment the patient is lying in bed in no acute distress. She is alert and oriented x 4. She states that her pain is controlled with current regimen. Denies sob, cp, palpitations, abdominal discomfort, urinary sx, n/v/d/c fever or chills. ASMITA drain in place. Surrounding area looks WNL. Suture in place to stabilize ASMITA drain. The incision is closed with sutures and steri strips and covered with a sterile dressing. The surrounding area is free from any erythema or swelling. No foul smelling or purulent drainage. Some tenderness on palpation. The patient was able to ambulate to the bathroom and void without difficulty. Denies any irritative voiding complaints. Chart was reviewed and I discussed with RN and attending. No acute medical changes since arriving from the PACU. Past Medical History: Past Medical History: Diagnosis Date Acute bacterial sinusitis 09/07/2018 Adverse effect of anesthesia 2022 Do not want versed before going to operating room. Do not like effect Anxiety CAD (coronary artery disease) Chronic pain disorder 2019 Lumbar Spondolithesis, shoulder, arms left and right. Hands and wrists both hips Colon polyp 2011 COPD (chronic obstructive pulmonary disease) ([facility]) Depression Diastolic dysfunction, left ventricle Diverticulosis Dizziness 2004 Ocassionaly. Worse since cervical radiculopathr and cervical myelopathy Fibromyalgia GERD (gastroesophageal reflux disease) Hiatal hernia 2010 Heartburn often especially under stress Hyperlipidemia Hypertension 2021 On losarton 50mg Irritable bowel syndrome Joint pain 2000 Back, ankles, wrists, hands, knees,neck Osteochondral lesion of talar dome SCHEDULED FOR THE SURGERY ON 08/16/22 AT [facility] (postoperative nausea and vomiting) Prediabetes controlled by diet Rheumatoid arthritis ([facility]) Shortness of breath 2019 Spondylolisthesis, lumbar region Past Surgical History: Past Surgical History: Procedure Laterality Date ANKLE ARTHROPLASTY 2022 Repair of peroneal tendon ANKLE SURGERY Right 08/16/2022 Right repair peroneal tendon and ankle arthroscopic debridement talar osteochondral lesion - Dr. Jimenez ANTERIOR CERVICAL DISCECTOMY W/ FUSION 04/14/2024 4-5 APPENDECTOMY CARDIAC CATHETERIZATION 10 11 2014 NO INTERVENTION CATARACT EXTRACTION CERVICAL FUSION 2015 Dr Dietz CHOLECYSTECTOMY COLON SURGERY 03 16 2013 approx; sigmoidectomy diverticulosis COLONOSCOPY 01 06 2013 colonic polyps, diverticulosis, hemorrhoids DILATION AND CURETTAGE OF UTERUS HYSTERECTOMY NECK SURGERY C5-C7 ACDF (Dr. Adam) TONSILLECTOMY AND ADENOIDECTOMY (HISTORICAL) TUBAL LIGATION UPPER GASTROINTESTINAL ENDOSCOPY 01 06 2013 see report Medications: Scheduled PRN acetaminophen, 650 mg, Oral, q6h tiotropium, 2 puff, Inhalation, Daily And albuterol, 1 puff, Inhalation, 4x daily [START ON 04/15/2024] atorvastatin, 20 mg, Oral, Nightly ceFAZolin, 2,000 mg, IntraVENous, q8h docusate sodium, 100 mg, Oral, BID gabapentin, 300 mg, Oral, BID losartan, 50 mg, Oral, Daily montelukast, 10 mg, Oral, Nightly [START ON 04/15/2024] pantoprazole, 40 mg, Oral, qAM AC polyethylene glycol (PEG) 3350, 17 g, Oral, Daily [START ON 04/15/2024] sertraline, 100 mg, Oral, Daily sodium chloride 0.9%, 10 mL, IntraVENous, 2 times per day PRN medications: bisacodyl, bisacodyl, morphine sulfate OR morphine sulfate, ondansetron ODT OR ondansetron, oxyCODONE OR oxyCODONE, phenol, sodium chloride, sodium chloride 0.9%, tiZANidine Continuous sodium chloride, 75 mL/hr, Last Rate: 75 mL/hr (04/14/24 1707) Allergies: Lisinopril and Propranolol hcl Social History: Social History Socioeconomic History Marital status: Spouse name: Not on file Number of children: Not on file Years of education: Not on file Highest education level: Not on file Occupational History Not on file Tobacco Use Smoking status: Former Current packs/day: 0.00 Average packs/day: 1 pack/day for 54.3 years (54.3 ttl pk-yrs) Types: Cigarettes Start date: 11/20/1969 Quit date: 02/28/2024 Years since quittin.1 Smokeless tobacco: Never Tobacco comments: Stopped smoking end of February , but Last 3 days have smoked 2 to 3 cigarettes per day. Will quitagain for surgery Vaping Use Vaping status: Never Used Substance and Sexual Activity Alcohol use: No Drug use: No Sexual activity: Yes Partners: Male control/protection: Post-menopausal Comment: Other Topics Concern Not on file Social History Narrative Not on file Social Drivers of Health Financial Resource Strain: Low Risk (04/14/2024) Overall Financial Resource Strain (CARDIA) Difficulty of Paying Living Expenses: Not hard at all Food Insecurity: No Food Insecurity (04/14/2024) Hunger Vital Sign Worried About Running Out of Food in the Last Year: Never true Ran Out of Food in the Last Year: Never true Transportation Needs: No Transportation Needs (04/14/2024) PRAPARE - Transportation Lack of Transportation (Medical): No Lack of Transportation (Non-Medical): No Physical Activity: Insufficiently Active (04/14/2024) Exercise Vital Sign Days of Exercise per Week: 4 days Minutes of Exercise per Session: 30 min Stress: Stress Concern Present (09/05/2018) Received from [facility] [employer] [place] [facility]ational [facility] - Occupational Stress Questionnaire Feeling of Stress : To some extent Social Connections: Moderately Isolated (09/05/2018) Received from [facility] Social Connection and Isolation Panel [NHANES] Frequency of Communication with Friends and Family: Twice a week Frequency of Social Gatherings with Friends and Family: Twice a week Attends Christianity Services: Never Active Member of Clubs or Organizations: No Attends Club or Organization Meetings: Not asked Marital Status: Intimate Partner Violence: Not At Risk (04/14/2024) Humiliation, Afraid, Rape, and Kick questionnaire Fear of Current or Ex-Partner: No Emotionally Abused: No Physically Abused: No Sexually Abused: No Housing Stability: Unknown (04/14/2024) Housing Stability Vital Sign Unable to Pay for Housing in the Last Year: No Number of Times Moved in the Last Year: Not on file Homeless in the Last Year: No Family History: Family History Problem Relation Name Age of Onset Heart attack Mother Chantal Garcia Cancer Mother Chantal Garcia Heart disease Mother Chantal Garcia Hypertension Mother Chantal Garcia Dementia Father Bao Garcia Rheum arthritis Father Bao Garcia Osteoporosis Father Bao Garcia Atrial fibrillation Father Bao Garcia Other ([id number]) Father Bao Garcia CHF Heart disease Father Bao Garcia Hypertension Father Bao Garcia Heart attack Sister Francy Lakatosh Heart disease Sister Francy Lakatosh Hypertension Sister Francy Bray Hypertension Brother Bao No Known Problems Son No Known Problems Son Cancer Maternal Grandfather Leukemia Diabetes Paternal Grandmother Savanna Garcia Cancer Other unknown origin--2 aunts Diabetes Other grandmother Cancer Sister Francy Hyperlipidemia Sister Francy REVIEW OF SYSTEMS: 10 point ROS obtained, as per HPI, otherwise NEG Physical Exam: Vitals: BP 140/78 (BP Location: Left arm, Patient Position: Sitting) Pulse 108 Temp 37.1 C (98.7 F) (Temporal) Resp 20 SpO2 95% BMI Classification: Overweight (BMI 25.0-29.9) Pulse Ox: SpO2 Av.7 % Min: 87 % Max: 100 % Supplemental O2: O2 Flow Rate (L/min): 2 L/min Physical Exam Vitals and nursing note reviewed. Constitutional: General: She is not in acute distress. Appearance: Normal appearance. HENT: Head: Normocephalic. Mouth/Throat: Mouth: Mucous membranes are moist. Neck: Cardiovascular: Rate and Rhythm: Normal rate and regular rhythm. Pulses: Normal pulses. Heart sounds: Normal heart sounds. Pulmonary: Effort: Pulmonary effort is normal. Breath sounds: Normal breath sounds. Abdominal: General: Abdomen is flat. There is no distension. Palpations: Abdomen is soft. There is no mass. Tenderness: There is no abdominal tenderness. There is no right CVA tenderness or left CVA tenderness. Musculoskeletal: General: Normal range of motion. Cervical back: Normal range of motion. Skin: General: Skin is warm and dry. Neurological: General: No focal deficit present. Mental Status: She is alert and oriented to person, place, and time. Mental status is at baseline. LABS: No results found for this or any previous visit (from the past 24 hours). Urine Culture: No results found for this or any previous visit. IMAGING: N/A Assessment Data: (CAT1) Reviewed 3 or more notes from different specialty or health system (each=1). (CAT1) Reviewed 3 or more labs/studies ordered by another provider not previously counted (each=1, panels count as 1). (CAT1) Ordered 3 or more new labs and/or studies (each=1, panels count as 1). (LOW: 2x CAT1 or independent historian MOD: 3x CAT1 or 1x CAT3 EXTENSIVE: 3x CAT1 and 1x CAT3) Acute, acute on chronic, unstable/uncontrolled chronic problems/diagnoses: Cervical stenosis and radiculopathy. S/p C4/C5 ACDF, removal of hardware C5-C7 with Dr. Dietz today 04/14/2024 Stable chronic problems affecting care, new non-acute diagnoses: Acute bacterial sinusitis Anxiety CAD Chronic pain disorder Colon polyp COPD Depression Diastolic dysfunction, left ventricle Diverticulosis Dizziness Fibromyalgia GERD Hiatal hernia Hyperlipidemia Hypertension Irritable bowel syndrome Joint pain Osteochondral lesion of talar dome Postoperative nausea and vomiting Prediabetes Rheumatoid arthritis Shortness of breath Spondylolisthesis, lumbar region Plan As a result of the above findings & factors, the following mgmt was pursued: - Primary care and management per neurosurgery services - Antibiotics per primary team - Educated the nurses to ensure that I/Os are being documented and to call for any decreased urine output. - Resume home meds as scheduled - IVF - Regular diet - Maintain drain to suction. Educated nurse to document output. - Maintain sterile dressing per primary tiera. Ensure that incision is C/D/I - Encouraged compliance with incentive spirometer - Q4 neuro checks - Maintain cervical collar - Pain and nausea control. - am labs, replace lytes prn - PT/OT/CM - delirium precautions: increase activity and limit nighttime disturbances - DVT prophylaxis: SCDs and encourage ambulation Complexity: Chronic illness with severe exacerbation, progression, or side effect of tx (HIGH). Acute illness with systemic symptoms (MOD). Multiple stable chronic illnesses (MOD). Risk: Prescription drug/IVF/colloid was initiated, discontinued, adjusted; or reviewed with decision to maintain current orders (MOD). Advance Directive: Full Code Anticipated Discharge - Date - per primary team - Location - Home - Pending the following - per primary team Total time spent (which include face to face and non face to face encounters) : 50 minutes Extended Emergency Contact Information Primary Emergency Contact: Mathew Linares Mobile Relation: Spouse Secondary Emergency Contact: Coretta Hunter Mobile Relation: Child IVY Stark CNP Division of Hospitalist Medicine [facility] Cosigned by Missy Ott DO at 04/14/2024 11:38 PM EST Associated attestation - Missy Ott DO - 04/14/2024 11:38 PM EST Attending Supervising Physician s Attestation Statement The patient was seen and examined independently and relevant data reviewed by myself. A full chart review was performed. Care plan has been discussed with TYLER Garsia I agree with the current plan of care including the workup, evaluation, management, and diagnosis. I have reviewed and agree with documentation below, unless stated otherwise in comments below. I personally evaluated the patient, I personally reviewed chart, data, labs radiology reports, and family updated at the bedside [employer] Phone: [phone]) 273-972511-12-2024 Consult note* IVY Stark CNP - 04/14/2024 4:31 PM ESTAssociated Order(s): IP CONSULT TO INTERNAL MEDICINE Images from the original note were not included. Hospital Medicine Consult Patient - Chantal Linares, Age - 73 y.o. - 1950 Room Number - [id number] A Consulting - German Dietz MD Primary Care Physician - Martir [id number] Date of Admission - 04/14/2024 5:52 AM Hospital Day - 0 Reason for Consult: Medical Management HISTORY OF PRESENT ILLNESS: Chantal is a 73 y.o. female pmhx below has a hx of cervical radiculopathy and neck pain and UE pain numbness, myelopathy symptoms. She has a history of a C5- C7 ACDF years ago. Most recent MRI cervical spine showed postop changes C5-C7 with a sizable disc bulge C4-C5 causing significant central canal and foraminal stenosis. Today she is s/p Exploration of C5-C7 ACDF, removal of plate C5-C7, [id number] cervical decompression and fusion today with Dr. Dietz 04/14/2024. She recovered in the PACU with no complications and transferred to with no difficulty. [facility] [place] for postoperative medical management. On assessment the patient is lying in bed in no acute distress. She is alert and oriented x 4. She states that her pain is controlled with current regimen. Denies sob, cp, palpitations, abdominal discomfort, urinary sx, n/v/d/c fever or chills. ASMITA drain in place. Surrounding area looks WNL. Suture in place to stabilize ASMITA drain. The incision is closed with sutures and steri strips and covered with a sterile dressing. The surrounding area is free from any erythema or swelling. No foul smelling or purulent drainage. Some tenderness on palpation. The patient was able to ambulate to the bathroom and void without difficulty. Denies any irritative voiding complaints. Chart was reviewed and I discussed with RN and attending. No acute medical changes since arriving from the PACU. Past Medical History: Past Medical History: Diagnosis Date Acute bacterial sinusitis 09/07/2018 Adverse effect of anesthesia 2022 Do not want versed before going to operating room. Do not like effect Anxiety CAD (coronary artery disease) Chronic pain disorder 2018 Lumbar Spondolithesis, shoulder, arms left and right. Hands and wrists both hips Colon polyp 2011 COPD (chronic obstructive pulmonary disease) (H[facility]) Depression Diastolic dysfunction, left ventricle Diverticulosis Dizziness 2004 Ocassionaly. Worse since cervical radiculopathr and cervical myelopathy Fibromyalgia GERD (gastroesophageal reflux disease) Hiatal hernia 2010 Heartburn often especially under stress Hyperlipidemia Hypertension 2021 On losarton 50mg Irritable bowel syndrome Joint pain 1999 Back, ankles, wrists, hands, knees,neck Osteochondral lesion of talar dome SCHEDULED FOR THE SURGERY ON 08/16/22 AT [facility] (postoperative nausea and vomiting) Prediabetes controlled by diet Rheumatoid arthritis (HCC) Shortness of breath 2019 Spondylolisthesis, lumbar region Past Surgical History: Past Surgical History: Procedure Laterality Date ANKLE ARTHROPLASTY 2022 Repair of peroneal tendon ANKLE SURGERY Right 08/16/2022 Right repair peroneal tendon and ankle arthroscopic debridement talar osteochondral lesion - Dr. Jimenez ANTERIOR CERVICAL DISCECTOMY W/ FUSION 04/14/2024 4-5 APPENDECTOMY CARDIAC CATHETERIZATION 10 11 2014 NO INTERVENTION CATARACT EXTRACTION CERVICAL FUSION 2015 Dr Dietz CHOLECYSTECTOMY COLON SURGERY 03 16 2013 approx; sigmoidectomy diverticulosis COLONOSCOPY 01 06 2013 colonic polyps, diverticulosis, hemorrhoids DILATION AND CURETTAGE OF UTERUS HYSTERECTOMY NECK SURGERY C5-C7 ACDF (Dr. Adam) TONSILLECTOMY AND ADENOIDECTOMY (HISTORICAL) TUBAL LIGATION UPPER GASTROINTESTINAL ENDOSCOPY 01 06 2013 see report Medications: Scheduled PRN acetaminophen, 650 mg, Oral, q6h tiotropium, 2 puff, Inhalation, Daily And albuterol, 1 puff, Inhalation, 4x daily [START ON 04/15/2024] atorvastatin, 20 mg, Oral, Nightly ceFAZolin, 2,000 mg, IntraVENous, q8h docusate sodium, 100 mg, Oral, BID gabapentin, 300 mg, Oral, BID losartan, 50 mg, Oral, Daily montelukast, 10 mg, Oral, Nightly [START ON 04/15/2024] pantoprazole, 40 mg, Oral, qAM AC polyethylene glycol (PEG) 3350, 17 g, Oral, Daily [START ON 04/15/2024] sertraline, 100 mg, Oral, Daily sodium chloride 0.9%, 10 mL, IntraVENous, 2 times per day PRN medications: bisacodyl, bisacodyl, morphine sulfate OR morphine sulfate, ondansetron ODT OR ondansetron, oxyCODONE OR oxyCODONE, phenol, sodium chloride, sodium chloride 0.9%, tiZANidine Continuous sodium chloride, 75 mL/hr, Last Rate: 75 mL/hr (04/14/24 1707) Allergies: Lisinopril and Propranolol hcl Social History: Social History Socioeconomic History Marital status: Spouse name: Not on file Number of children: Not on file Years of education: Not on file Highest education level: Not on file Occupational History Not on file Tobacco Use Smoking status: Former Current packs/day: 0.00 Average packs/day: 1 pack/day for 54.3 years (54.3 ttl pk-yrs) Types: Cigarettes Start date: 11/20/1969 Quit date: 02/28/2024 Years since quittin.1 Smokeless tobacco: Never Tobacco comments: Stopped smoking end of February , but Last 3 days have smoked 2 to 3 cigarettes per day. Will quitagain for surgery Vaping Use Vaping status: Never Used Substance and Sexual Activity Alcohol use: No Drug use: No Sexual activity: Yes Partners: Male control/protection: Post-menopausal Comment: Other Topics Concern Not on file Social History Narrative Not on file Social Drivers of Health Financial Resource Strain: Low Risk (04/14/2024) Overall Financial Resource Strain (CARDIA) Difficulty of Paying Living Expenses: Not hard at all Food Insecurity: No Food Insecurity (04/14/2024) Hunger Vital Sign Worried About Running Out of Food in the Last Year: Never true Ran Out of Food in the Last Year: Never true Transportation Needs: No Transportation Needs (04/14/2024) PRAPARE - Transportation Lack of Transportation (Medical): No Lack of Transportation (Non-Medical): No Physical Activity: Insufficiently Active (04/14/2024) Exercise Vital Sign Days of Exercise per Week: 4 days Minutes of Exercise per Session: 30 min Stress: Stress Concern Present (09/05/2018) Received from [facility] [employer] [place] of [employer]ational [facility] - Occupational Stress Questionnaire Feeling of Stress : To some extent Social Connections: Moderately Isolated (09/05/2018) Received from [facility] Social Connection and Isolation Panel [NHANES] Frequency of Communication with Friends and Family: Twice a week Frequency of Social Gatherings with Friends and Family: Twice a week Attends Christianity Services: Never Active Member of Clubs or Organizations: No Attends Club or Organization Meetings: Not asked Marital Status: Intimate Partner Violence: Not At Risk (04/14/2024) Humiliation, Afraid, Rape, and Kick questionnaire Fear of Current or Ex-Partner: No Emotionally Abused: No Physically Abused: No Sexually Abused: No Housing Stability: Unknown (04/14/2024) Housing Stability Vital Sign Unable to Pay for Housing in the Last Year: No Number of Times Moved in the Last Year: Not on file Homeless in the Last Year: No Family History: Family History Problem Relation Name Age of Onset Heart attack Mother Chantal Garcia Cancer Mother Chantal Garcia Heart disease Mother Chantal Garcia Hypertension Mother Chantal Garcia Dementia Father Bao Garcia Rheum arthritis Father Bao Garcia Osteoporosis Father Bao Garcia Atrial fibrillation Father Bao Arthury Other ([id number]) Father Bao Garcia CHF Heart disease Father Bao Garcia Hypertension Father Bao Garcia Heart attack Sister Francy Lakatosh Heart disease Sister Francy Lakatosh Hypertension Sister Francy Lakatosh Hypertension Brother Bao No Known Problems Son No Known Problems Son Cancer Maternal Grandfather Leukemia Diabetes Paternal Grandmother Savannasaurav Garcia Cancer Other unknown origin--2 aunts Diabetes Other grandmother Cancer Sister Francy Hyperlipidemia Sister Francy REVIEW OF SYSTEMS: 10 point ROS obtained, as per HPI, otherwise NEG Physical Exam: Vitals: BP 140/78 (BP Location: Left arm, Patient Position: Sitting) Pulse 108 Temp 37.1 C (98.7 F) (Temporal) Resp 20 SpO2 95% BMI Classification: Overweight (BMI 25.0-29.9) Pulse Ox: SpO2 Av.7 % Min: 87 % Max: 100 % Supplemental O2: O2 Flow Rate (L/min): 2 L/min Physical Exam Vitals and nursing note reviewed. Constitutional: General: She is not in acute distress. Appearance: Normal appearance. HENT: Head: Normocephalic. Mouth/Throat: Mouth: Mucous membranes are moist. Neck: Cardiovascular: Rate and Rhythm: Normal rate and regular rhythm. Pulses: Normal pulses. Heart sounds: Normal heart sounds. Pulmonary: Effort: Pulmonary effort is normal. Breath sounds: Normal breath sounds. Abdominal: General: Abdomen is flat. There is no distension. Palpations: Abdomen is soft. There is no mass. Tenderness: There is no abdominal tenderness. There is no right CVA tenderness or left CVA tenderness. Musculoskeletal: General: Normal range of motion. Cervical back: Normal range of motion. Skin: General: Skin is warm and dry. Neurological: General: No focal deficit present. Mental Status: She is alert and oriented to person, place, and time. Mental status is at baseline. LABS: No results found for this or any previous visit (from the past 24 hours). Urine Culture: No results found for this or any previous visit. IMAGING: N/A Assessment Data: (CAT1) Reviewed 3 or more notes from different specialty or health system (each=1). (CAT1) Reviewed 3 or more labs/studies ordered by another provider not previously counted (each=1, panels count as 1). (CAT1) Ordered 3 or more new labs and/or studies (each=1, panels count as 1). (LOW: 2x CAT1 or independent historian MOD: 3x CAT1 or 1x CAT3 EXTENSIVE: 3x CAT1 and 1x CAT3) Acute, acute on chronic, unstable/uncontrolled chronic problems/diagnoses: Cervical stenosis and radiculopathy. S/p C4/C5 ACDF, removal of hardware C5-C7 with Dr. Dietz today 04/14/2024 Stable chronic problems affecting care, new non-acute diagnoses: Acute bacterial sinusitis Anxiety CAD Chronic pain disorder Colon polyp COPD Depression Diastolic dysfunction, left ventricle Diverticulosis Dizziness Fibromyalgia GERD Hiatal hernia Hyperlipidemia Hypertension Irritable bowel syndrome Joint pain Osteochondral lesion of talar dome Postoperative nausea and vomiting Prediabetes Rheumatoid arthritis Shortness of breath Spondylolisthesis, lumbar region Plan As a result of the above findings & factors, the following mgmt was pursued: - Primary care and management per neurosurgery services - Antibiotics per primary team - Educated the nurses to ensure that I/Os are being documented and to call for any decreased urine output. - Resume home meds as scheduled - IVF - Regular diet - Maintain drain to suction. Educated nurse to document output. - Maintain sterile dressing per primary tiera. Ensure that incision is C/D/I - Encouraged compliance with incentive spirometer - Q4 neuro checks - Maintain cervical collar - Pain and nausea control. - am labs, replace lytes prn - PT/OT/CM - delirium precautions: increase activity and limit nighttime disturbances - DVT prophylaxis: SCDs and encourage ambulation Complexity: Chronic illness with severe exacerbation, progression, or side effect of tx (HIGH). Acute illness with systemic symptoms (MOD). Multiple stable chronic illnesses (MOD). Risk: Prescription drug/IVF/colloid was initiated, discontinued, adjusted; or reviewed with decision to maintain current orders (MOD). Advance Directive: Full Code Anticipated Discharge - Date - per primary team - Location - Home - Pending the following - per primary team Total time spent (which include face to face and non face to face encounters) : 50 minutes Extended Emergency Contact Information Primary Emergency Contact: MilagrosMathew Mobile Relation: Spouse Secondary Emergency Contact: Coretta Hunter Mobile Relation: Child IVY Stark CNP Division of Hospitalist Medicine [facility] Cosigned by Missy Ott DO at 04/14/2024 11:38 PM EST Associated attestation - Missy Ott DO - 04/14/2024 11:38 PM EST Attending Supervising Physician s Attestation Statement The patient was seen and examined independently and relevant data reviewed by myself. A full chart review was performed. Care plan has been discussed with TYLER Garsia I agree with the current plan of care including the workup, evaluation, management, and diagnosis. I have reviewed and agree with documentation below, unless stated otherwise in comments below. I personally evaluated the patient, I personally reviewed chart, data, labs radiology reports, and family updated at the bedside documented in this [facility]11-12-2024 Note* Perioperative Nursing Note - Chetna Eric RN - 04/14/2024 2:51 PM EST Pt up to the bathroom, with assist; gait steady; C.C intact; void without difficulty; family at bedside; returned to bed, [id number]* Perioperative Nursing Note - Chetna Eric RN - 04/14/2024 2:51 PM EST Pt up to the bathroom, with assist; gait steady; C.C intact; void without difficulty; family at bedside; returned to bed, [id number] NotePatient: Chantalkimberly Linares Procedure Summary Date: 04/14/24 Room / Location: [address] Operating Room Anesthesia Start: 729 Anesthesia Stop: 919 Procedure: CERVICAL 4-5 ANTERIOR CERVICAL DECOMPRESSION, FUSION, REMOVAL OF HARDWARE CERVICAL 5-7 Diagnosis: Radiculopathy, cervical region Cervicalgia Surgeons: German Dietz MD Responsible Provider: Mathieu Peterson MD Anesthesia Type: general ASA Status: 3 Anesthesia Type: general Vitals Value Taken Time BP 157/75 04/14/24 1008 Temp 36.2 ?C (97.1 ?F) 04/14/24 0918 Pulse 99 04/14/24 1014 Resp 16 04/14/24 1008 SpO2 96 % 04/14/24 1014 Vitals shown include unfiled device data. Anesthesia Post Evaluation Patient location during evaluation: PACU Patient participation: complete - patient participated Level of consciousness: awake and alert Pain management: satisfactory to patient Airway patency: patent Dental Injury: no Cardiovascular status: acceptable, blood pressure returned to baseline and hemodynamically stable Respiratory status: acceptable, spontaneous ventilation and face mask Hydration status: euvolemic Nausea/Vomiting: controlled No notable events documented. Patient can be discharged once all PACU criteria has been met.[facility]11-12-2024 NotePatient: Chantal Linares Procedure Summary Date: 04/14/24 Room / Location: [address] Operating Room Anesthesia Start: 729 Anesthesia Stop: 919 Procedure: CERVICAL 4-5 ANTERIOR CERVICAL DECOMPRESSION, FUSION, REMOVAL OF HARDWARE CERVICAL 5-7 Diagnosis: Radiculopathy, cervical region Cervicalgia Surgeons: German Dietz MD Responsible Provider: Mathieu Peterson MD Anesthesia Type: general ASA Status: 3 Anesthesia Type: general Vitals Value Taken Time BP 157/75 04/14/24 1008 Temp 36.2 ?C (97.1 ?F) 04/14/24 0918 Pulse 99 04/14/24 1014 Resp 16 04/14/24 1008 SpO2 96 % 04/14/24 1014 Vitals shown include unfiled device data. Anesthesia Post Evaluation Patient location during evaluation: PACU Patient participation: complete - patient participated Level of consciousness: awake and alert Pain management: satisfactory to patient Multimodal analgesia pain management approach Airway patency: patent Two or more strategies used to mitigate risk of obstructive sleep apnea Cardiovascular status: acceptable and hemodynamically stable Respiratory status: acceptable and face mask Hydration status: acceptable No notable events documented. MIPS #430 PONV Patient received an inhalational anesthetic (4554F) Patient does not exhibit three or more risk factors for PONV (X0430)) MIPS # 424 Perioperative Temperature Management Anesthesia time was 60 minutes or longer (4255F) Anesthesai administered was General (inhalational or TIVA) or Neuraxial block (X0424) At least one body temperature greater than 95.8F/35.5C achieved within the 30 mins immediately prior to or the 15 minutes immediately following anesthesia end time (G9771) MIPS #477 Multimodal Pain Management Not emergent case Patient was administered multimodal pain management (two or more drugs and/or interventions excluding systemic opioids) in the periopeartive period occurring at some time between 6 hours prior to anesthesia start time until discharged from PACU (G2148) MIPS #404 Anesthesiology Smoking Abstinence The patient is a current smoker (G9642) (e.g. cigarette, cigar, pipe, e-cigarette/vaping/marijuana) The patient underwent an elective surgery or procedure requiring anesthesia (G9643) The patient received preop smoking cessation instructions prior to the day of surgery or procedure by , APC laundry sorter proxy staff (G9497) The patient did not smoke the day of the procedure (G9644) I completed my handoff to the receiving clinician during which we: 1. Identified the patient 2. Identified the responsible provider 3. Reviewed the pertinent medical history 4. Discussed the surgical course 5. Reviewed intra-op anesthesia management and issues during anesthesia 6. Set expectations for post-procedure period 7. Allowed opportunity for questions and acknowledgement of understanding.[facility]11-12-2024 NotePeripheral IV Date/Time: 04/14/2024 7:42 AM Placement Needle size: 20 G Laterality: right Location: antecubital Local anesthetic: none Site prep: alcohol Technique: anatomical landmarks Attempts: [address] [place], [place] [id number] NoteAirway Date/Time: 04/14/2024 7:40 AM Urgency: scheduled Airway not difficult General Information and Staff Patient location during procedure: Procedural Anesthesiologist: Mathieu Peterson MD Resident/ROLLER GOLD LEAF: Rachel Nielsen CRNA Performed: ROLLER GOLD LEAF and SRNA Indications and Patient Condition Indications for airway management: anesthesia Sedation level: RSI Preoxygenated: yes Patient position: C spine neutral MILS maintained throughout Mask difficulty assessment: 0 - not attempted Final Airway Details Final airway type: endotracheal airway Successful airway: ETT and mara tube Cuffed: yes Successful intubation technique: video laryngoscopy Facilitating devices/methods: cricoid pressure and intubating stylet Endotracheal tube insertion site: oral Blade: Allyn Blade size: #3 ETT size (mm): 7.0 Cormack-Lehane Classification: grade I - full view of glottis Placement verified by: chest auscultation and capnometry Measured from: lips ETT to lips (cm): 21 Number of attempts at approach: [address] [place], [place] [id number] Note* Op Note - German Dietz MD - 04/14/2024 7:30 AM EST OPERATIVE NOTE Patient Name: Chantal Linares : 1950 DATE OF PROCEDURE: 04/14/2024 SURGEON: German Dietz MD OVERHEAD CLEANER MAINTAINER: Tatiana Adam CNP PREOPERATIVE DIAGNOSES: Cervical stenosis, cervical radiculopathy POSTOPERATIVE DIAGNOSES: Same PROCEDURE: Exploration of C5-C7 ACDF, removal of plate C5-C7, C4-C5 anterior cervical decompressionand fusion ANESTHESIA: General ESTIMATED BLOOD LOSS: 20 INDICATION FOR PROCEDURE: Mrs. Lniares is a 73-year-old female with a history of a C5-C7 ACDF years ago. She presented with new symptoms of cervical radiculopathy. MRI cervical spine showed postop changes C5-C7 with a sizable disc bulge C4-C5 causing significant central canal and foraminal stenosis. Risks and benefits of ACDF and removal of previous plate were discussed with her, she wished to proceed. DESCRIPTION OF PROCEDURE: Patient was brought to the op room general endotracheal esthesia was induced. She had spinal cord monitoring leads placed. She is lying supine on operative table, her head rested on a donut. Her arms were tucked and padded her side appropriately shoulders were gently tapedand allow better visualization of the cervical spine via C arm. C-arm was brought in field approximate the C4-C5 level, this is marked surgical marker and she was prepped and draped in the normal sterile fashion. After appropriate timeout identifying the patient, the level surgery type surgery point 5% Marcaine with epinephrine was instilled future incision. Skin incision was made to level platysma. Supraplatysmal dissection was carried out. Platysma was opened vertically to the midline the anterior border of the sternocleidomastoid was identified, the carotid artery was identified a Lateral exposure. When the anterior cervical spine was reached, the anterior cervical plate from C5-C7 was identified. It was thoroughly exposed and the screws from C5-C7 were exposed. The universal removal set was used to find a screwdriver of appropriate size to remove the screws. Once the screws were removed the plate was able to be removed and the excess fusion from C5 to see 7 was explored. There wassolid bony fusion with no abnormal motion at C5-C6 or C6-C7. We are then able to identify the C4-B0zfofm at the superior aspect just above the top of the plate. Cicero pins were placed in the 4 and C5 gentle distraction placed on him retractors were put in place. Then the discectomy at C4-C5 was carried out on the microscope with pituitary drill 1 and 2 mm Kerrisons the up-biting curette. The PLL was reached and resected across the span of the disc base. There was sizable osteophytes bilaterally especially at on the right when the decompression was complete the proximal end of each root was identified. The endplates were prepared with ring curette and rasp. A 7 mm titanium cage stuffed with DBX was placed at the C4-C5 level. This cage was separate and distinct from the anterior cervical plate. Following this an anterior cervical plate by [employer] was placed with 15 mm screws. Because there was solid fusion from see 5 to C7 we did not replace the plate there we just placed a plate from C4-C5. The wound was then blanka irrigated out retractors removed wound allowed to sit for severalminutes confirm there is good hemostasis. Then a 10 Cuban round ASMITA drain was placed. The platysma was closed with interrupted 3-0 Vicryl sutures followed by subcuticular up to 3-0 Vicryl sutures with Mastisol and Steri-Strips on the skin. 3-0 Vicryl was used so ASMITA drain in place. Sterile dressing was placed. She was extubated taken recovery in stable fashion. All of her spinal cord signals were the same at the end of the case compared to beginning. There is no neurosurgical resident available to assist the case, the nurse practitioner assisted to provide suction retraction assistance with opening closing allow the case to be performed safely. [id number]* Op Note - German Dietz MD - 04/14/2024 7:30 AM EST OPERATIVE NOTE Patient Name: Chantal Linares : 1950 DATE OF PROCEDURE: 04/14/2024 SURGEON: German Dietz MD OVERHEAD CLEANER MAINTAINER: Tatiana Adam CNP PREOPERATIVE DIAGNOSES: Cervical stenosis, cervical radiculopathy POSTOPERATIVE DIAGNOSES: Same PROCEDURE: Exploration of C5-C7 ACDF, removal of plate C5-C7, C4-C5 anterior cervical decompressionand fusion ANESTHESIA: General ESTIMATED BLOOD LOSS: 20 INDICATION FOR PROCEDURE: Mrs. Linares is a 73-year-old female with a history of a C5-C7 ACDF years ago. She presented with new symptoms of cervical radiculopathy. MRI cervical spine showed postop changes C5-C7 with a sizable disc bulge C4-C5 causing significant central canal and foraminal stenosis. Risks and benefits of ACDF and removal of previous plate were discussed with her, she wished to proceed. DESCRIPTION OF PROCEDURE: Patient was brought to the op room general endotracheal esthesia was induced. She had spinal cord monitoring leads placed. She is lying supine on operative table, her head rested on a donut. Her arms were tucked and padded her side appropriately shoulders were gently tapedand allow better visualization of the cervical spine via C arm. C-arm was brought in field approximate the C4-C5 level, this is marked surgical marker and she was prepped and draped in the normal sterile fashion. After appropriate timeout identifying the patient, the level surgery type surgery point 5% Marcaine with epinephrine was instilled future incision. Skin incision was made to level platysma. Supraplatysmal dissection was carried out. Platysma was opened vertically to the midline the anterior border of the sternocleidomastoid was identified, the carotid artery was identified a Lateral exposure. When the anterior cervical spine was reached, the anterior cervical plate from C5-C7 was identified. It was thoroughly exposed and the screws from C5-C7 were exposed. The universal removal set was used to find a screwdriver of appropriate size to remove the screws. Once the screws were removed the plate was able to be removed and the excess fusion from C5 to see 7 was explored. There wassolid bony fusion with no abnormal motion at C5-C6 or C6-C7. We are then able to identify the C4-Y0mcolc at the superior aspect just above the top of the plate. Cicero pins were placed in the 4 and C5 gentle distraction placed on him retractors were put in place. Then the discectomy at C4-C5 was carried out on the microscope with pituitary drill 1 and 2 mm Kerrisons the up-biting curette. The PLL was reached and resected across the span of the disc base. There was sizable osteophytes bilaterally especially at on the right when the decompression was complete the proximal end of each root was identified. The endplates were prepared with ring curette and rasp. A 7 mm titanium cage stuffed with DBX was placed at the C4-C5 level. This cage was separate and distinct from the anterior cervical plate. Following this an anterior cervical plate by [employer] was placed with 15 mm screws. Because there was solid fusion from see 5 to C7 we did not replace the plate there we just placed a plate from C4-C5. The wound was then blanka irrigated out retractors removed wound allowed to sit for severalminutes confirm there is good hemostasis. Then a 10 Cuban round ASMITA drain was placed. The platysma was closed with interrupted 3-0 Vicryl sutures followed by subcuticular up to 3-0 Vicryl sutures with Mastisol and Steri-Strips on the skin. 3-0 Vicryl was used so ASMITA drain in place. Sterile dressing was placed. She was extubated taken recovery in stable fashion. All of her spinal cord signals were the same at the end of the case compared to beginning. There is no neurosurgical resident available to assist the case, the nurse practitioner assisted to provide suction retraction assistance with opening closing allow the case to be performed safely. [facility] [id number] History and physical note* German Dietz MD - 04/13/2024 8:09 AM EST History Of Present Illness Chantal Linares is a 73 y.o. female presenting with neck pain and UE pain numbness, myelopathy symptoms. Past Medical History She has a past medical history of Acute bacterial sinusitis (09/07/2018), Adverse effect of anesthesia (2022), Anxiety, CAD (coronary artery disease), Chronic pain disorder (2018), Colon polyp (2011), COPD (chronic obstructive pulmonary disease) (), Depression, Diastolic dysfunction, left ventricle, Diverticulosis, Dizziness (2004), Fibromyalgia, GERD (gastroesophageal reflux disease), Hiatal hernia (2010), Hyperlipidemia, Hypertension (2021), Irritable bowel syndrome, Joint pain (1999), Osteochondral lesion of talar dome, PONV (postoperative nausea and vomiting), Prediabetes, Rheumatoid arthritis (), Shortness of breath (2018), and Spondylolisthesis, lumbar region. She has no past medical history of Delayed emergence from general anesthesia. Surgical History She has a past surgical history that includes Colon surgery (03 16 2013); Upper gastrointestinal endoscopy (01 06 2013 ); Cholecystectomy; Appendectomy; Cardiac catheterization (10 11 2014); Colonoscopy (01 06 2013); Neck surgery; Tubal ligation; Hysterectomy; Tonsillectomy and adenoidectomy; Cataract extraction; Ankle surgery (Right, 08/16/2022); Cervical fusion (2015); Ankle arthroplasty (2022); and Dilation and curettage of uterus. Social History She reports that she quit smoking about 6 weeks ago. Her smoking use included cigarettes. She started smoking about 54 years ago. She has a 54.3 pack-year smoking history. She has never used smokeless tobacco. She reports that she does not drink alcohol and does not use drugs. Allergies Lisinopril and Propranolol hcl Medications No medications prior to admission. Review of Systems + neck pain Physical Exam Motor Normal muscle bulk throughout. Normal muscle tone. Right Left Biceps 3 3 Triceps 3 3 Wrist flexor 2 2 Wrist extensor 2 2 Interossei 2 2 Last Recorded Vitals There were no vitals taken for this visit. Relevant Results Plain films of the cervical spine show postoperative changes C5-C7. MRI cervical spine shows postop changes C5-C7. At C4-C5 there is a large disc bulge that creates cord compression and severe bilateral foraminal narrowing right greater than left Assessment/Plan Active Problems: There are no active Hospital Problems. Cervical stenosis, radiculopathy C4/C5 ACDF, removal of hardware C5-C7 Risks/Benefits of the surgery have been discussed with the patient including but not limited to bleeding and hematoma formation, infection, speech difficulty, voice changes, CSF leak, spinal cord injury, nerve root injury, permanent weakness and . Pt and family understand and agree to the procedure. [employer] Phone: [phone] 594-794611-11-2024 NoteHistory Of Present Illness Chantal Linares is a 73 y.o. female presenting with neck pain and UE pain numbness, myelopathy symptoms. Past Medical History She has a past medical history of Acute bacterial sinusitis (09/07/2018), Adverse effect of anesthesia (2022), Anxiety, CAD (coronary artery disease), Chronic pain disorder (2018), Colon polyp (2011), COPD (chronic obstructive pulmonary disease) (), Depression, Diastolic dysfunction, left ventricle, Diverticulosis, Dizziness (2004), Fibromyalgia, GERD (gastroesophageal reflux disease), Hiatal hernia (2010), Hyperlipidemia, Hypertension (2021), Irritable bowel syndrome, Joint pain (1999), Osteochondral lesion of talar dome, PONV (postoperative nausea and vomiting), Prediabetes, Rheumatoid arthritis (), Shortness of breath (2018), and Spondylolisthesis, lumbar region. She has no past medical history of Delayed emergence from general anesthesia. Surgical History She has a past surgical history that includes Colon surgery (03 16 2013); Upper gastrointestinal endoscopy (01 06 2013 ); Cholecystectomy; Appendectomy; Cardiac catheterization (10 11 2014); Colonoscopy (01 06 2013); Neck surgery; Tubal ligation; Hysterectomy; Tonsillectomy and adenoidectomy; Cataract extraction; Ankle surgery (Right, 08/16/2022); Cervical fusion (2015); Ankle arthroplasty (2022); and Dilation and curettage of uterus. Social History She reports that she quit smoking about 6 weeks ago. Her smoking use included cigarettes. She started smoking about 54 years ago. She has a 54.3 pack-year smoking history. She has never used smokeless tobacco. She reports that she does not drink alcohol and does not use drugs. Allergies Lisinopril and Propranolol hcl Medications No medications prior to admission. Review of Systems + neck pain Physical Exam Motor Normal muscle bulk throughout. Normal muscle tone. Right Left Biceps 3 3 Triceps 3 3 Wrist flexor 2 2 Wrist extensor 2 2 Interossei 2 2 Last Recorded Vitals There were no vitals taken for this visit. Relevant Results Plain films of the cervical spine show postoperative changes C5-C7. MRI cervical spine shows postop changes C5-C7. At C4-C5 there is a large disc bulge that creates cord compression and severe bilateral foraminal narrowing right greater than left Assessment/Plan Active Problems: There are no active Hospital Problems. Cervical stenosis, radiculopathy C4/C5 ACDF, removal of hardware C5-C7 Risks/Benefits of the surgery have been discussed with the patient including but not limited to bleeding and hematoma formation, infection, speech difficulty, voice changes, CSF leak, spinal cord injury, nerve root injury, permanent weakness and . Pt and family understand and agree to the procedure.[facility]11-11-2024 History and physical note* German Dietz MD - 04/13/2024 8:09 AM EST History Of Present Illness Chantal Linares is a 73 y.o. female presenting with neck pain and UE pain numbness, myelopathy symptoms. Past Medical History She has a past medical history of Acute bacterial sinusitis (09/07/2018), Adverse effect of anesthesia (2022), Anxiety, CAD (coronary artery disease), Chronic pain disorder (2018), Colon polyp (2011), COPD (chronic obstructive pulmonary disease) (), Depression, Diastolic dysfunction, left ventricle, Diverticulosis, Dizziness (2004), Fibromyalgia, GERD (gastroesophageal reflux disease), Hiatal hernia (2010), Hyperlipidemia, Hypertension (2021), Irritable bowel syndrome, Joint pain (1999), Osteochondral lesion of talar dome, PONV (postoperative nausea and vomiting), Prediabetes, Rheumatoid arthritis (), Shortness of breath (2018), and Spondylolisthesis, lumbar region. She has no past medical history of Delayed emergence from general anesthesia. Surgical History She has a past surgical history that includes Colon surgery (03 16 2013); Upper gastrointestinal endoscopy (01 06 2013 ); Cholecystectomy; Appendectomy; Cardiac catheterization (10 11 2014); Colonoscopy (01 06 2013); Neck surgery; Tubal ligation; Hysterectomy; Tonsillectomy and adenoidectomy; Cataract extraction; Ankle surgery (Right, 08/16/2022); Cervical fusion (2015); Ankle arthroplasty (2022); and Dilation and curettage of uterus. Social History She reports that she quit smoking about 6 weeks ago. Her smoking use included cigarettes. She started smoking about 54 years ago. She has a 54.3 pack-year smoking history. She has never used smokeless tobacco. She reports that she does not drink alcohol and does not use drugs. Allergies Lisinopril and Propranolol hcl Medications No medications prior to admission. Review of Systems + neck pain Physical Exam Motor Normal muscle bulk throughout. Normal muscle tone. Right Left Biceps 3 3 Triceps 3 3 Wrist flexor 2 2 Wrist extensor 2 2 Interossei 2 2 Last Recorded Vitals There were no vitals taken for this visit. Relevant Results Plain films of the cervical spine show postoperative changes C5-C7. MRI cervical spine shows postop changes C5-C7. At C4-C5 there is a large disc bulge that creates cord compression and severe bilateral foraminal narrowing right greater than left Assessment/Plan Active Problems: There are no active Hospital Problems. Cervical stenosis, radiculopathy C4/C5 ACDF, removal of hardware C5-C7 Risks/Benefits of the surgery have been discussed with the patient including but not limited to bleeding and hematoma formation, infection, speech difficulty, voice changes, CSF leak, spinal cord injury, nerve root injury, permanent weakness and . Pt and family understand and agree to the procedure. documented in this [facility]11-07-2024 NotePatient: Chantal Linares Procedure Information Date/Time: 04/14/24729 Procedure: CERVICAL 4-5 ANTERIOR CERVICAL DECOMPRESSION, FUSION, REMOVAL OF HARDWARE CERVICAL 5-7 - 2 HOUR CASE Location: [address] Operating Room Surgeons: German Dietz MD Relevant Problems Anesthesia (+) History of non-ST elevation myocardial infarction (NSTEMI) Cardio (+) Atherosclerosis of coronary artery (+) Hyperlipidemia GI (+) Gastroesophageal reflux disease (+) IBS (irritable bowel syndrome) Neuro/Psych (+) Anxiety (+) SYLVIE (generalized anxiety disorder) Pulmonary (+) COPD, moderate (HCC) Other (+) Arthritis of both acromioclavicular joints (+) Arthritis of left ankle (+) Arthritis of right ankle Past Medical History: Past Medical History: 09/07/2018: Acute bacterial sinusitis 2022: Adverse effect of anesthesia Comment: Do not want versed before going to operating room. Do not like effect No date: Anxiety No date: CAD (coronary artery disease) 2019: Chronic pain disorder Comment: Lumbar Spondolithesis, shoulder, arms left and right. Hands and wrists both hips 2011: Colon polyp No date: COPD (chronic obstructive pulmonary disease) (HCC) No date: Depression No date: Diastolic dysfunction, left ventricle No date: Diverticulosis 2005: Dizziness Comment: Ocassionaly. Worse since cervical radiculopathr and cervical myelopathy No date: Fibromyalgia No date: GERD (gastroesophageal reflux disease) 2010: Hiatal hernia Comment: Heartburn often especially under stress No date: Hyperlipidemia 2021: Hypertension Comment: On losarton 50mg No date: Irritable bowel syndrome 2000: Joint pain Comment: Back, ankles, wrists, hands, knees,neck No date: Osteochondral lesion of talar dome Comment: SCHEDULED FOR THE SURGERY ON 08/16/22 AT [facility] No date: PONV (postoperative nausea and vomiting) No date: Prediabetes Comment: controlled by diet No date: Rheumatoid arthritis (HCC) 2019: Shortness of breath No date: Spondylolisthesis, lumbar region Past Surgical History: Past Surgical History: 2022: ANKLE ARTHROPLASTY Comment: Repair of peroneal tendon 08/16/2022: ANKLE SURGERY; Right Comment: Right repair peroneal tendon and ankle arthroscopic debridement talar osteochondral lesion - Dr. Jimenez No date: APPENDECTOMY 10 11 2014: CARDIAC CATHETERIZATION Comment: NO INTERVENTION No date: CATARACT EXTRACTION 2016: CERVICAL FUSION Comment: Dr Dietz No date: CHOLECYSTECTOMY 03 16 2013: COLON SURGERY Comment: approx; sigmoidectomy diverticulosis 01 06 2013: COLONOSCOPY Comment: colonic polyps, diverticulosis, hemorrhoids No date: DILATION AND CURETTAGE OF UTERUS No date: HYSTERECTOMY No date: NECK SURGERY Comment: C5-C7 ACDF (Dr. Adam) No date: TONSILLECTOMY AND ADENOIDECTOMY (HISTORICAL) No date: TUBAL LIGATION 01 06 2013 : UPPER GASTROINTESTINAL ENDOSCOPY Comment: see report Social History: TOBACCO: reports that she quit smoking about 5 weeks ago. Her smoking use included cigarettes. She started smoking about 54 years ago. She has a 54.3 pack-year smoking history. She has never used smokeless tobacco. ETOH: reports no history of alcohol use. Social History Substance and Sexual Activity Drug Use No Family History: Family History Problem Relation Name Age of Onset Heart attack Mother Chantal Garcia Cancer Mother Chantal Garcia Heart disease Mother Chantal Garcia Hypertension Mother Chantal Garcia Dementia Father Bao Garcia Rheum arthritis Father Bao Garcia Osteoporosis Father Bao Arthury Atrial fibrillation Father Bao Arthury Other ([id number]) Father Bao Garcia CHF Heart disease Father Bao Garcia Hypertension Father Bao Arthury Heart attack Sister Francy Lakatosh Heart disease Sister Francy Lakatosh Hypertension Sister Francy Lakatosh Hypertension Brother Bao No Known Problems Son No Known Problems Son Cancer Maternal Grandfather Leukemia Diabetes Paternal Grandmother Savanna Garcia Cancer Other unknown origin--2 aunts Diabetes Other grandmother Cancer Sister Francy Hyperlipidemia Sister Francy Screening: Hysterectomy Clinical information reviewed: Tobacco Allergies Meds Med Hx Surg Hx OB Status Fam Hx Soc Hx Physical Exam Airway Mallampati: II TM distance: >3 FB Neck ROM: limited Mouth Open: normalendotracheal tube not in place Cardiovascular Dental (+) Upper Dentures, Lower Partials Pulmonary Abdominal Anesthesia Plan patient is NPO appropriate Any family history or previous problems with anesthesia no ASA 3 general Any family history or previous problems with anesthesia no The patient is not a current smoker. Anesthetic plan and risks discussed with patient. Anesthesia Soto Considerations Elective Glidescope use given C-spine pathology MIRIAM Screening Labs: Lab Results Component Value Date (more content not included)...[facility] 04-09-2024 NoteComprehensive PreSurgical History and Physical ? Name: Chantal Linares : 1950 (Age-73 y.o.) Date of Service: Pt seen/examined on 04/09/2024 Procedure Information Date/Time: 04/14/24729 Procedure: CERVICAL 4-5 ANTERIOR CERVICAL DECOMPRESSION, FUSION, REMOVAL OF HARDWARE CERVICAL 5-7 - 2 HOUR CASE Location: [facility] OR [address] [place] [address] Operating Room Surgeons: German Dietz MD Chief Complaint: NECK PAIN AND HAD SURGERY IN 2015 ASSESSMENT/PLAN: Patient is considered intermediate risk for this intermediate risk procedure/surgery noted above with no reducible risk factors. Based on the above evaluation, the benefits of the planned procedure likely exceed the risks. The patient is medically optimized to proceed with the planned procedure without any further cardiopulmonary testing. 1) CERVICAL RADICULOPATHY ; Managed per surgery 2) HTN Elevated today, advised to monitor and follow up with PCP if persists Compliant with meds. Taking COZAAR Follows with PCP Labs and EKG done BP Readings from Last 3 Encounters: 04/09/24 (!) 152/79 02/24/24 (!) 149/90 01/31/24 124/82 3) HLD TAKING STATIN AND F/U WITH PCP 4) COPD Per patient, feels at baseline Using daily inhaler, SYMBICORT AND BREO rescue inhaler ALBUTEROL Continue inhalers day of surgery Follows with PCP Labs, EKG done 5) ANXIETY ; ON ZANTAX 6) CURRENT SMOKER Smoking cessation encouraged ; was on chantix , denies taking now 7) DEPRESSION ; ON ZOLOFT Visit Type: Pre-Admission Testing Visit Labs Ordered: YES - PER PAT PROTOCOL Sleep Referral Ordered: NO - NEGATIVE SCREEN PER SLEEP REFERRAL PROTOCOL Total time spent (which include face to face and non face to face encounters) : 45 minutes Toxic drug monitoring/narrow therapeutic index drug monitoring : # Drug name : MULTIPLE # Route administered : PO # Method of monitoring : LAB AND EKG PAT Protocol referenced includes: 1. Anesthesia Lab Protocol Orders 2. Perioperative Cardiovascular Risk Assessment 3. Anesthesia Assessment 4. Pain Assessment and Acute Pain Service Consult (if appropriate) 5. Medical Clearance/Consult from Internal Medicine (IMS) 6. Shower/Wash Order (for designated surgeries) 7. MIRIAM Screen and Sleep Clinic Referral (if appropriate) History Of Present Illness: 73 y.o. female who presents with chief complaint mentioned above. Per surgeon's note 02/24/24 73 y.o. presents with cervical neck pain. She has had previous ACDF [place] [address] Dietz. She began having new symptoms in 2019 and was evaluated by Dr. White and was dx with cervical myelopathy. She was planned for surgery with Dr. White and surgery was cancelled due to COVID. She did not reschedule due to pain improving. She reports that the pain resurfaced this past November?October. Started with right arm pain, wrist, arm, shoulder. Then pain started in the left. She has been following with Sports Medicine. Dr. Franco did cortisone injections in January in her wrists. Had EMG.NCT. She reports currently she gets dizzy, light headed, difficulty wal;jayson, difficulty with hand strength. Difficulty with weakness in her hands. Last week, dizziness, trembling, numbness in legs and feeling weak. She reports pins and needles in the arms. Pt has seen the surgeon and elected for above procedure. Denies Hx of , DM, CAD, CHF, UT, TIA/CVA, DVT/PE, , MIRIAM Missing teeth? - FULL DENTURES TOP AND PARTIALS BOTTOM Snore at night? - SOMETIMES Hx problems with anesthesia? - PONV Past Medical History: Past Medical History: 09/07/2018: Acute bacterial sinusitis 2022: Adverse effect of anesthesia Comment: Do not want versed before going to operating room. Do not like effect No date: Anxiety No date: CAD (coronary artery disease) 2019: Chronic pain disorder Comment: Lumbar Spondolithesis, shoulder, arms left and right. Hands and wrists both hips 2011: Colon polyp No date: COPD (chronic obstructive pulmonary disease) ([facility]) No date: Depression No date: Diastolic dysfunction, left ventricle No date: Diverticulosis 2004: Dizziness Comment: Ocassionaly. Worse since cervical radiculopathr and cervical myelopathy No date: Fibromyalgia No date: GERD (gastroesophageal reflux disease) 2010: Hiatal hernia Comment: Heartburn often especially under stress No date: Hyperlipidemia 2021: Hypertension Comment: On losarton 50mg No date: Irritable bowel syndrome 2000: Joint pain Comment: Back, ankles, wrists, hands, knees,neck No date: Osteochondral lesion of talar dome Comment: SCHEDULED FOR THE SURGERY ON 08/16/22 AT [facility] No date: PONV (postoperative nausea and vomiting) No date: Prediabetes Comment: controlled by diet No date: Rheumatoid arthritis ([facility]) 2019: Shortness of breath No date: Spondylolisthesis, lumbar region Past Surgical History: P (more content not included)...[facility] [id number] Telephone encounter Note* Telephone Encounter - Jana Garcia - 03/06/2024 3:02 PM EDT Surgery is approved--approval scanned into media. PAT:04/07 SX:04/14 POST-OP:04/27 Called pt and lvm with information. Packet was given at office visit and will be sent through [employer]. [facility] [id number] Miscellaneous Notes* Telephone Encounter - Jana Millerews - 03/06/2024 3:02 PM EDT Surgery is approved--approval scanned into media. PAT:04/07 SX:04/14 POST-OP:04/27 Called pt and lvm with information. Packet was given at office visit and will be sent through [employer]. * Telephone Encounter - Janaosmani Garcia - 03/02/2024 11:14 AM EDT Auth submitted via [employer]. Tracking#[id number] * Telephone Encounter - Jana Garcia - 02/27/2024 3:37 PM EDT KAREEM faxed to comp. Pain management. [phone] * Telephone Encounter - Janaosmani Garcia - 02/26/2024 2:29 PM EDT Called patient and advised of Crissy's message. Pt stated that her insurance said no smoking is not one of their policies. I advised patient I can submit auth, but there is a potential it will be denied without the nicotine lab testing being completed. Advised we got an email stating that was a change within [employer] that all spinal fusions require the nicotine testing. Pt stated she stopped smoking yesterday and she verbalized understanding all information given. * Telephone Encounter - Tatiana Adam APRN - ELECTRIC CELL TENDER - 02/26/2024 1:32 PM EDT Nicotine use in any form can inhibit bony fusion from forming. This results in a non union of the vertebral bodies and can cause pain and instability. If a patient develops non union then a second operation is required. Insurance companies require patient to be nicotine free to prevent this from occurring. Chantix is an acceptable medication to utilize for smoking cessation * Telephone Encounter - Oralia Dupree RN - 02/26/2024 1:26 PM EDT Patient would like some clarification on why she needs to be nicotine free. She stated she spoke with her insurance who said "this is not true". She is also inquiring if it is okay with Dr Dietz if she uses Chantix for smoking cessation. * Addendum Note - IVY Michael CNP - 02/26/2024 9:05 AM EDTAddended by: TATIANA ADAM on: 02/26/2024 09:05 AM Modules accepted: Orders * Telephone Encounter - IVY Michael CNP - 02/26/2024 9:05 AM EDT I placed an order for a nicotine blood test for insurance approval. 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 She verbalized understanding * Telephone Encounter - IVY Michael CNP - 02/25/2024 2:50 PM EDT I have sent in a prescription for a medrol dose pack that she can utilize in the interim before surgery. If she feels she needs ativan that would have to be through her PCP. We do not prescribe anxiety medication prior to surgery * Telephone Encounter - Jana Garcia - 02/25/2024 11:51 AM EDT Patient currently using nicotine patches. Per her insurance she needs to be nicotine free for 6 weeks prior to sx. Sx moved to 04-14. She does have to have a nicotine lab draw done. Crissy are you ableto place an order for this? Patient would also like to know if you could prescribe her Ativan and prednisone to get her to her sx date. * Telephone Encounter - Jana Garcia - 02/25/2024 11:33 AM EDT Sx scheduling process reviewed at office visit. Pt given a tentative sx date 04/03, but advised due to insurance and physician needs this date could change. Pt verbalized understanding. Per Patient: PT: NO PM: Comp. Pain Management Chiropractor: no documented in this encounterSTrumbull Regional Medical [id number] Telephone encounter Note* Telephone Encounter - Jana Garcia - 03/02/2024 11:14 AM EDT Auth submitted via [employer]. Tracking#[id number] [facility] [id number] Miscellaneous Notes* Telephone Encounter - Jana Garcia - 03/02/2024 11:14 AM EDT Auth submitted via [employer]. Tracking#[id number] * Telephone Encounter - Jana Garcia - 02/27/2024 3:37 PM EDT KAREEM faxed to comp. Pain management. [phone] * Telephone Encounter - Jana Garcia - 02/26/2024 2:29 PM EDT Called patient and advised of Crissy's message. Pt stated that her insurance said no smoking is not one of their policies. I advised patient I can submit auth, but there is a potential it will be denied without the nicotine lab testing being completed. Advised we got an email stating that was a change within [employer] that all spinal fusions require the nicotine testing. Pt stated she stopped smoking yesterday and she verbalized understanding all information given. * Telephone Encounter - IVY Michael CNP - 02/26/2024 1:32 PM EDT Nicotine use in any form can inhibit bony fusion from forming. This results in a non union of the vertebral bodies and can cause pain and instability. If a patient develops non union then a second operation is required. Insurance companies require patient to be nicotine free to prevent this from occurring. Chantix is an acceptable medication to utilize for smoking cessation * Telephone Encounter - Oralia Dupree RN - 02/26/2024 1:26 PM EDT Patient would like some clarification on why she needs to be nicotine free. She stated she spoke with her insurance who said "this is not true". She is also inquiring if it is okay with Dr Dietz if she uses Chantix for smoking cessation. * Addendum Note - IVY Michael CNP - 02/26/2024 9:05 AM EDTAddended by: TATIANA ADAM on: 02/26/2024 09:05 AM Modules accepted: Orders * Telephone Encounter - IVY Michael CNP - 02/26/2024 9:05 AM EDT I placed an order for a nicotine blood test for insurance approval. 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 She verbalized understanding * Telephone Encounter - IVY Michael CNP - 02/25/2024 2:50 PM EDT I have sent in a prescription for a medrol dose pack that she can utilize in the interim before surgery. If she feels she needs ativan that would have to be through her PCP. We do not prescribe anxiety medication prior to surgery * Telephone Encounter - Jana Garcia - 02/25/2024 11:51 AM EDT Patient currently using nicotine patches. Per her insurance she needs to be nicotine free for 6 weeks prior to sx. Sx moved to 04-14. She does have to have a nicotine lab draw done. Crissy are you ableto place an order for this? Patient would also like to know if you could prescribe her Ativan and prednisone to get her to her sx date. * Telephone Encounter - Jana Garcia - 02/25/2024 11:33 AM EDT Sx scheduling process reviewed at office visit. Pt given a tentative sx date 04/03, but advised due to insurance and physician needs this date could change. Pt verbalized understanding. Per Patient: PT: NO PM: Comp. Pain Management Chiropractor: no documented in this encounterSTrumbull Regional Medical [id number] Telephone encounter Note* Telephone Encounter - Jana Garcia - 02/27/2024 3:37 PM EDT KAREEM faxed to comp. Pain management. [phone] [facility] [id number] Miscellaneous Notes* Telephone Encounter - Jana Garcia - 02/27/2024 3:37 PM EDT KRAEEM faxed to comp. Pain management. [phone] * Telephone Encounter - Jana Garcia - 02/26/2024 2:29 PM EDT Called patient and advised of Crissy's message. Pt stated that her insurance said no smoking is not one of their policies. I advised patient I can submit auth, but there is a potential it will be denied without the nicotine lab testing being completed. Advised we got an email stating that was a change within [employer] that all spinal fusions require the nicotine testing. Pt stated she stopped smoking yesterday and she verbalized understanding all information given. * Telephone Encounter - IVY Michael CNP - 02/26/2024 1:32 PM EDT Nicotine use in any form can inhibit bony fusion from forming. This results in a non union of the vertebral bodies and can cause pain and instability. If a patient develops non union then a second operation is required. Insurance companies require patient to be nicotine free to prevent this from occurring. Chantix is an acceptable medication to utilize for smoking cessation * Telephone Encounter - Oralia Dupree RN - 02/26/2024 1:26 PM EDT Patient would like some clarification on why she needs to be nicotine free. She stated she spoke with her insurance who said "this is not true". She is also inquiring if it is okay with Dr Dietz if she uses Chantix for smoking cessation. * Addendum Note - IVY Michael CNP - 02/26/2024 9:05 AM EDTAddended by: TATIANA ADAM on: 02/26/2024 09:05 AM Modules accepted: Orders * Telephone Encounter - IVY Michael CNP - 02/26/2024 9:05 AM EDT I placed an order for a nicotine blood test for insurance approval. 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 She verbalized understanding * Telephone Encounter - IVY Michael CNP - 02/25/2024 2:50 PM EDT I have sent in a prescription for a medrol dose pack that she can utilize in the interim before surgery. If she feels she needs ativan that would have to be through her PCP. We do not prescribe anxiety medication prior to surgery * Telephone Encounter - Janadavid Garcia - 02/25/2024 11:51 AM EDT Patient currently using nicotine patches. Per her insurance she needs to be nicotine free for 6 weeks prior to sx. Sx moved to 04-14. She does have to have a nicotine lab draw done. Crissy are you ableto place an order for this? Patient would also like to know if you could prescribe her Ativan and prednisone to get her to her sx date. * Telephone Encounter - Janadavid Garcia - 02/25/2024 11:33 AM EDT Sx scheduling process reviewed at office visit. Pt given a tentative sx date 04/03, but advised due to insurance and physician needs this date could change. Pt verbalized understanding. Per Patient: PT: NO PM: Comp. Pain Management Chiropractor: no documented in this encounterSTrumbull Regional Medical [id number] Telephone encounter Note* Telephone Encounter - Jana Garcia - 02/26/2024 2:29 PM EDT Called patient and advised of Crissy's message. Pt stated that her insurance said no smoking is not one of their policies. I advised patient I can submit auth, but there is a potential it will be denied without the nicotine lab testing being completed. Advised we got an email stating that was a change within [employer] that all spinal fusions require the nicotine testing. Pt stated she stopped smoking yesterday and she verbalized understanding all information given. [facility] [id number] Miscellaneous Notes* Telephone Encounter - Jana Garcia - 02/26/2024 2:29 PM EDT Called patient and advised of Crissy's message. Pt stated that her insurance said no smoking is not one of their policies. I advised patient I can submit auth, but there is a potential it will be denied without the nicotine lab testing being completed. Advised we got an email stating that was a change within [employer] that all spinal fusions require the nicotine testing. Pt stated she stopped smoking yesterday and she verbalized understanding all information given. * Telephone Encounter - IVY Michael CNP - 02/26/2024 1:32 PM EDT Nicotine use in any form can inhibit bony fusion from forming. This results in a non union of the vertebral bodies and can cause pain and instability. If a patient develops non union then a second operation is required. Insurance companies require patient to be nicotine free to prevent this from occurring. Chantix is an acceptable medication to utilize for smoking cessation * Telephone Encounter - Oralia Dupree RN - 02/26/2024 1:26 PM EDT Patient would like some clarification on why she needs to be nicotine free. She stated she spoke with her insurance who said "this is not true". She is also inquiring if it is okay with Dr Dietz if she uses Chantix for smoking cessation. * Addendum Note - IVY Michael CNP - 02/26/2024 9:05 AM EDTAddended by: TATIANA ADAM on: 02/26/2024 09:05 AM Modules accepted: Orders * Telephone Encounter - IVY Michael CNP - 02/26/2024 9:05 AM EDT I placed an order for a nicotine blood test for insurance approval. 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 She verbalized understanding * Telephone Encounter - IVY Michael CNP - 02/25/2024 2:50 PM EDT I have sent in a prescription for a medrol dose pack that she can utilize in the interim before surgery. If she feels she needs ativan that would have to be through her PCP. We do not prescribe anxiety medication prior to surgery * Telephone Encounter - Jana Garcia - 02/25/2024 11:51 AM EDT Patient currently using nicotine patches. Per her insurance she needs to be nicotine free for 6 weeks prior to sx. Sx moved to 04-14. She does have to have a nicotine lab draw done. Crissy are you ableto place an order for this? Patient would also like to know if you could prescribe her Ativan and prednisone to get her to her sx date. * Telephone Encounter - Jana Garcia - 02/25/2024 11:33 AM EDT Sx scheduling process reviewed at office visit. Pt given a tentative sx date 04/03, but advised due to insurance and physician needs this date could change. Pt verbalized understanding. Per Patient: PT: NO PM: Comp. Pain Management Chiropractor: no documented in this [facility]09-25-2024 Telephone encounter Note* Telephone Encounter - IVY Michael CNP - 02/26/2024 1:32 PM EDT Nicotine use in any form can inhibit bony fusion from forming. This results in a non union of the vertebral bodies and can cause pain and instability. If a patient develops non union then a second operation is required. Insurance companies require patient to be nicotine free to prevent this from occurring. Chantix is an acceptable medication to utilize for smoking cessation [id number] Telephone encounter Note* Telephone Encounter - Oralia Dupree RN - 02/26/2024 1:26 PM EDT Patient would like some clarification on why she needs to be nicotine free. She stated she spoke with her insurance who said "this is not true". She is also inquiring if it is okay with Dr Dietz if she uses Chantix for smoking cessation. [id number] Note* Addendum Note - IVY Michael CNP - 02/26/2024 9:05 AM EDTAddended by: TATIANA ADAM on: 02/26/2024 09:05 AM Modules accepted: Orders [id number] Note* Addendum Note - IVY Michael CNP - 02/26/2024 9:05 AM EDTAddended by: TATIANA ADAM on: 02/26/2024 09:05 AM Modules accepted: Orders [place] [id number] Note* Addendum Note - IVY Michael CNP - 02/26/2024 9:05 AM EDTAddended by: TATIANA ADAM on: 02/26/2024 09:05 AM Modules accepted: Orders [id number] Note* Addendum Note - IVY Michael CNP - 02/26/2024 9:05 AM EDTAddended by: TATIANA ADAM on: 02/26/2024 09:05 AM Modules accepted: Orders [id number] Note* Addendum Note - IVY Michael CNP - 02/26/2024 9:05 AM EDTAddended by: TATIANA ADAM on: 02/26/2024 09:05 AM Modules accepted: Orders [id number] Note* Addendum Note - IVY Michael CNP - 02/26/2024 9:05 AM EDTAddended by: TATIANA ADAM on: 02/26/2024 09:05 AM Modules accepted: Orders [facility] [id number] NoteAddended by: TATIANA ADAM on: 02/26/2024 09:05 AM Modules accepted: [facility]09-25-2024 Telephone encounter Note* Telephone Encounter - IVY Michael CNP - 02/26/2024 9:05 AM EDT I placed an order for a nicotine blood test for insurance approval. 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 She verbalized understanding [facility] [id number] Telephone encounter Note* Telephone Encounter - IVY Michael CNP - 02/25/2024 2:50 PM EDT I have sent in a prescription for a medrol dose pack that she can utilize in the interim before surgery. If she feels she needs ativan that would have to be through her PCP. We do not prescribe anxiety medication prior to surgery [id number] Telephone encounter Note* Telephone Encounter - Jana Garcia - 02/25/2024 11:51 AM EDT Patient currently using nicotine patches. Per her insurance she needs to be nicotine free for 6 weeks prior to sx. Sx moved to 04-14. She does have to have a nicotine lab draw done. Crissy are you ableto place an order for this? Patient would also like to know if you could prescribe her Ativan and prednisone to get her to her sx date. [facility] [id number] Telephone encounter Note* Telephone Encounter - Jana Garcia - 02/25/2024 11:33 AM EDT Sx scheduling process reviewed at office visit. Pt given a tentative sx date 04/03, but advised due to insurance and physician needs this date could change. Pt verbalized understanding. Per Patient: PT: NO PM: Comp. Pain Management Chiropractor: no [facility] [id number] History of Present illness Narrative* German Dietz MD - 02/24/2024 3:30 PM EDT NEUROSURGERY CONSULT NOTE Patient Name: Chantal Linares Patient : 1950 PCP: Martir Keene MD History of Present Ilness: 73 y.o. presents with cervical neck pain. She has had previous ACDF [place] [address] Dietz. She began having new symptoms in 2019 and was evaluated by Dr. White and was dx with cervical myelopathy. She was planned for surgery with Dr. White and surgery was cancelled due to COVID. She did not reschedule due to pain improving. She reports that the pain resurfaced this past November?October. Started with right arm pain, wrist, arm, shoulder. Then pain started in the left. She has been following with Sports Medicine. Dr. Franco did cortisone injections in January in her wrists. Had EMG.NCT. She reports currently she gets dizzy, light headed, difficulty wal;jayson, difficulty with hand strength. Difficulty with weakness in her hands. Last week, dizziness, trembling, numbness in legs and feeling weak. She reports pins and needles in the arms. Chief Complaint Patient presents with New Patient Patient reports having cervical neck surgery in 2015. Patient is reporting numbness, tingling, and pain in bilateral upper extremities. She reports the right arm began in November 2023, and the left arm followed. She reports headaches, dizziness, nausea, tremors, and balance problems. She notes right shoulder pain. She saw Dr. White in 2019, diagnosed with cervical myelopathy, and was scheduled forsurgery. That surgery was cancelled due to COVID. She reports her symptoms resolved until this pastJune. Conservative Treatments: Physical Therapy: Y NSAID's: prednisone Narcotics:No Muscle relaxants: Y Epidural injections: Y Chiropractor: N Past Medical History: Past Medical History: Diagnosis Date Acute bacterial sinusitis 09/07/2018 Anxiety CAD (coronary artery disease) COPD (chronic obstructive pulmonary disease) ([facility]) Depression Diastolic dysfunction, left ventricle Diverticulosis Fibromyalgia GERD (gastroesophageal reflux disease) Hyperlipidemia Irritable bowel syndrome Osteochondral lesion of talar dome SCHEDULED FOR THE SURGERY ON 08/16/22 AT [facility] (postoperative nausea and vomiting) Prediabetes controlled by diet Rheumatoid arthritis (HCC) Spondylolisthesis, lumbar region Past Surgical History: Past Surgical History: Procedure Laterality Date ADENOIDECTOMY ANKLE SURGERY Right 08/16/2022 Right repair peroneal tendon and ankle arthroscopic debridement talar osteochondral lesion - Dr. Jimenez APPENDECTOMY CARDIAC CATHETERIZATION 10 11 2014 NO INTERVENTION CATARACT EXTRACTION CHOLECYSTECTOMY COLON SURGERY 03 16 2013 approx; sigmoidectomy diverticulosis COLON SURGERY COLONOSCOPY 01 06 2013 colonic polyps, diverticulosis, hemorrhoids HYSTERECTOMY NECK SURGERY C5-C7 ACDF (Dr. Adam) TONSILLECTOMY TONSILLECTOMY AND ADENOIDECTOMY (HISTORICAL) TUBAL LIGATION UPPER GASTROINTESTINAL ENDOSCOPY 01 06 2013 see report Home Medications: Prior to Admission medications Medication Sig Start Date End Date Taking? Authorizing Provider albuterol (ProAir HFA) 108 (90 Base) MCG/ACT inhaler Inhale 2 puffs every 4 hours as needed for wheezing or shortness of breath. 08/01/23 07/31/24 Yes Martir Keene MD ALPRAZolam (Xanax) 0.25 MG tablet take 1 tablet by mouth NIGHTLY NEEDED FOR SLEEP OR ANXIETY FORUP TO 90 DAYS 06/01/22 Yes Martir Keene MD cyanocobalamin (Vitamin B-12) 100 MCG tablet Take 50 mcg by mouth in the morning. Yes Historical Provider, Fluticasone Furoate-Vilanterol (BREO ELLIPTA IN) inhale 1 puff by mouth INTO THE LUNGS daily Inhalation for 30 Yes Historical Provider, gabapentin (Neurontin) 100 MG capsule Take 300 mg by mouth 2 times daily. 03/12/22 Yes Historical Provider, lansoprazole (Prevacid) [address] capsule Take 30 mg by mouth in the morning. 02/11/22 Yes HistoricalProvider, losartan (Cozaar) 50 MG tablet Nightly. 02/06/22 Yes Historical Provider, montelukast (Singulair) 10 MG tablet Take 1 tablet (10 mg) by mouth Nightly. 09/16/23 09/15/24 Yes Martir Keene MD naloxone (Narcan) 4 mg/0.1 mL nasal spray instill 1 spray in 1 nostril if needed for OPIOID OVERDOSE may re... (REFER TO PRESCRIPTION NOTES). 08/16/22 Yes Historical Provider, predniSONE (Deltasone) 20 MG tablet Take 1 tablet (20 mg) by mouth daily for 7 days. 02/19/24 02/26/24 Yes Jake Franco MD sertraline (Zoloft) 100 MG tablet take 2 tablets by mouth once daily 05/22/23 Yes Martir Keene MD simvastatin (Zocor) 40 MG tablet take 1 tablet by mouth once daily 06/26/23 Yes Martir Keene MD tiZANidine (Zanaflex) 4 MG tablet Take 4 mg by mouth 3 times daily as needed. 03/12/22 Yes Historical Provider, traMADol (Ultram) 50 MG tablet take 1 tablet by mouth once daily if needed for pain 03/12/22 Yes Historical Provider, budesonide-formoterol (Symbicort) 160-4.5 MCG/ACT inhaler Inhale 2 puffs in the morning and 2 puffsin the evening. Rinse mouth with water after use to reduce aftertaste and incidence of candidiasis.Do not swallow.. 06/21/22 08/23/23 Martir Keene MD predniSONE (Deltasone) 10 MG tablet Take 1 tablet (10 mg) by mouth daily. 01/16/24 02/19/24 Jake Franco MD Allergies: Lisinopril and Propranolol hcl Social History: TOBACCO: reports that she has been smoking cigarettes. She has never used smokeless tobacco. ETOH: reports no history of alcohol use. RECREATIONAL DRUG USE: Social History Substance and Sexual Activity Drug Use No Family History: Family History Problem Relation Name Age of Onset Heart attack Mother Dementia Father Rheum arthritis Father Osteoporosis Father Atrial fibrillation Father Other ([id number]) Father CHF Heart attack Sister No Known Problems Brother No Known Problems Son No Known Problems Son Cancer Maternal Grandfather Leukemia Cancer Other unknown origin--2 aunts Diabetes Other grandmother Review of Systems Constitutional: Negative. HENT: Negative. Eyes: Negative. Respiratory: Negative. Cardiovascular: Negative. Gastrointestinal: Negative. Endocrine: Negative. Genitourinary: Negative. Musculoskeletal: Negative. Skin: Negative. Neurological: Negative. Psychiatric/Behavioral: Negative. Physical Examination: Vitals: 02/24/24 1555 BP: (!) 149/90 Pulse: 87 Physical Exam Constitutional: Appearance: Normal appearance. HENT: Head: Normocephalic. Eyes: General: Lids are normal. Extraocular Movements: Extraocular movements intact. Pupils: Pupils are equal, round, and reactive to light. Cardiovascular: Rate and Rhythm: Normal rate. Pulmonary: Effort: Pulmonary effort is normal. Abdominal: Palpations: Abdomen is soft. Musculoskeletal: General: Normal range of motion. Cervical back: Normal range of motion and neck supple. Skin: General: Skin is warm and dry. Neurological: General: No focal deficit present. Mental Status: She is alert. Coordination: Coordination is intact. Deep Tendon Reflexes: Reflex Scores: Patellar reflexes are 3+ on the right side and 3+ on the left side. Psychiatric: Mood and Affect: Mood normal. Judgment: Judgment normal. Neurological Exam Mental Status Alert. Cranial Nerves CN II: Visual acuity is normal. Visual evans full to confrontation. CN III, IV, : Extraocular movements intact bilaterally. Normal lids and orbits bilaterally. Pupils equal round and reactive to light bilaterally. CN V: Facial sensation is normal. CN VII: Full and symmetric facial movement. CN VIII: Hearing is normal. CN IX, X: Palate elevates symmetrically. Normal gag reflex. CN XI: Shoulder shrug strength is normal. CN XII: Tongue midline without atrophy or fasciculations. Motor Normal muscle bulk throughout. Normal muscle tone. Right Left Biceps 3 3 Triceps 3 3 Wrist flexor 2 2 Wrist extensor 2 2 Interossei 2 2 Sensory Sensation is intact to light touch, pinprick, vibration and proprioception in all four extremities. Reflexes Right Left Patellar 3+ 3+ Coordination Hdbrsl-gt-[id number], rapid alternating movements and [id number]-[id number] normal bilaterally without dysmetria. Gait Normal casual, toe, heel and tandem gait. Radiology Personal review: Plain films of the cervical spine show postoperative changes C5-C7. MRI cervical spine shows postop changes C5-C7. At C4-C5 there is a large disc bulge that creates cord compression and severe bilateral foraminal narrowing right greater than left ASSESSMENT / PLAN : Cervical degenerative disc disease, cervical radiculopathy. Today I recommended to her a C4-C5 anterior cervical decompression and fusion. Risks and benefits of the procedure were discussed with her,she would like to proceed with surgery. We will schedule her for surgery at her convenience. Procedure: C4/C5 ACDF, removal of hardware C5-C7 Anesthesia: GET Time: 2 Positioning/Frame: [employer]/Implants: [employer] Will need a universal removal set O-Arm: N C-Arm: Y Stealth Navigation: N [place]: N Microscope: Y Brace: Pre-Op Imaging:[facility] Intranerve: Y Inpatient/Outpatient: Over night Medications to DC: Other: [id number], [id number] Diagnosis Plan 1. Chronic neck pain with history of cervical spinal surgery [facility] 2. Cervical radiculopathy [facility] Neuro[facility] 3. Balance problems [facility] Neurosurgery documented in this [facility]09-18-2024 History of Present illness Narrative* Jake Franco MD - 02/19/2024 10:00 AM EDT Images from the original note were not included. [facility] [address] [address] Dept: [phone] Dept Chief Complaint Patient presents with Follow-up Bilateral UE Subjective History of Present Illness: Chantal Linares follows up today for bilateral upper extremity symptoms. Since the last visit on 01/31/2024, symptoms are worsening. Carpal tunnel injections have provided minimal relief. Current symptoms are aching, numb, burning, tingling, weakness, headaches, dizziness, and "heat flashes". She had not had any falls but notes her balance is worsening. She rates symptoms as a 6/10 at rest and a 9/10 at worst. Imaging to date: Hand & Wrist X-rays 12/2023, Cervical MRI 02/13/2024 Treatment to date: PT/OT/HEP: no recent PT Ice: yes, helpful Heat: yes, helpful Medications: Topicals: yes, Diclofenac/Voltaren, helpful Tylenol: yes, helpful NSAIDs: yes, Ibuprofen/Motrin/Advil, helpful Oral steroids: yes, Prednisone, helpful Muscle relaxants: yes, Tizanidine/Zanaflex, not helpful Nerve medications: yes, Gabapentin/Neurontin, helpful Targeted injections: Bilateral CT injections 01/31/2024, minimal relief Assistive devices: bilateral cock-up wrist splints, not helpful Prior surgery: ACDF C5-[address] 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 Physical Exam: General: Alert, well appearing, no acute distress. Respiratory: Breathing comfortably on room air. No respiratory distress. Skin: Warm, dry, intact. No visible rashes or erythema overlying area of focused exam. Musculoskeletal/Neurologic: Cervical Spine Inspection: Posture: Normal. Ecchymosis: No ecchymosis noted of the examined area. Range of Motion: Limited in extension and lateral bend bilaterally. Strength: 4/5 weakness with resisted elbow flexion on the right. Otherwise within normal limits forage. Sensation: Sensation to light touch altered diffusely over right hand. Reflexes: Right Biceps: 3+. Left Biceps: 3+. Right Brachioradialis: 3+. Left Brachioradialis: 3+. Right Triceps: 2+. Left Triceps: 2+. Special Tests: Tandem Gait: Unable to complete. External Notes No pertinent interval updates Labs Lab Results Component Value Date HGBA1C 6.2 (H) 08/27/2023 Lab Results Component Value Date CREATININE 0.46 (L) 10/19/2023 Imaging Images reviewed with patient today I have personally reviewed the images pertinent to the appointment today Cervical Spine MRI Date: 02/13/2024 Findings: Status post C5-7 anterior cervical discectomy and fusion. Straightening of the cervical lordosis. Normal background marrow signal intensity for age. Normal caliber spinal cord. No cord signal changes identified when accounting for motion artifact. There is no abnormal intrathecal enhancement. C2-3: No stenosis. C3-4: Uncovertebral and facet arthrosis mildly narrowing the left neural foramen. C4-5: Disc-osteophyte complex moderately narrowing the spinal canal, flattening the ventral cord. Preserved CSF dorsally. Uncovertebral and facet arthrosis moderately narrowing the right neural foramen and mildly narrowing the left neural foramen. C5-6: Disc-osteophyte complex mildly narrowing the left aspect of the spinal canal. Uncovertebral and facet arthrosis mildly narrowing the neural foramina. C6-7: Uncovertebral and facet arthrosis moderately narrowing the right neural foramen and mildly narrowing the left neural foramen. C7-T1: No stenosis. The prevertebral and paravertebral soft tissues are unremarkable. IMPRESSION: Junctional spondylosis with a C4-5 disc-osteophyte complex flattening the ventral cord but preserved CSF dorsally. EMG/NCT No interval studies Procedure No procedures completed today Assessment Diagnosis Plan 1. Chronic neck pain with history of cervical spinal surgery [facility] Neurosurgery Ambulatory referral to Physical Therapy 2. Cervical radiculopathy [facility] Neurosurgery Ambulatory referral to Physical Therapy 3. Balance problems [facility] Neurosurgery Ambulatory referral to Physical Therapy Plan Activity: Avoid/limit aggravating factors. Progress activity under guidance of PT. Medication(s): Prednisone burst as prescribed. Test(s)/Imaging/Referral(s): Referral to Physical Therapy. Referral back to Dr. Dietz. Additional Intervention(s): Consider referral to Pain Management for targeted cervical injections. Follow up: with Dr. Dietz as directed. Sooner as needed. Jake Franco MD 02/19/2024 10:00 AM Please note that portions of this note may have been completed with voice recognition software. Documentation reviewed prior to signing but minor errors in welder shielded metal arc may have occurred. documented in this [place] [address]-17-2024 Telephone encounter Note* Telephone Encounter - Patience Beltrán - 02/18/2024 9:54 AM EDT Left message for patient to schedule appointment. Sent MyChart message. Mailed postcard. [id number] Miscellaneous Notes* Telephone Encounter - Patience Beltrán - 02/18/2024 9:54 AM EDT Left message for patient to schedule appointment. Sent MyChart message. Mailed postcard. documented in this [place] [address]-13-2024 History of Present illness Narrative* Regina Nielsen RN - 02/14/2024 3:43 PM EDT Pt due for 2023 AWV, please call to schedule - thank you! Last OV 08/23/23 No upcoming appts scheduled documented in this [facility]09-11-2024 NoteCalled patient and informed her an External referral for Rheumatology has been placed. In addition stated I was calling to move up her MRI review appointment time. If we can not find a suitable time I stated I would personally call her with her results and next steps.[facility]08-30-2024 History of Present illness Narrative* Jake Franco MD - 01/31/2024 3:30 PM EDT Images from the original note were not included. [facility] [address] [place] [address] [address] [facility] [address] Dept: [phone] Dept Chief Complaint Patient presents with Follow-up Bilateral Hands Subjective History of Present Illness: Chantal Linares follows up today for bilateral hand symptoms. Since the last visit on 01/10/2024, symptoms are worsening. Current symptoms are aching, burning, tingling, and weakness . She endorses some new referred pain through the right upper extremity into the shoulder. Neck pain and stiffness are about the same. She does note difficulty with balance. She rates symptoms as a 4/10 at rest and a 9/10 at worst. 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 Respiratory: Breathing comfortably on room air. No respiratory distress. Skin: Warm, dry, intact. No visible rashes or erythema overlying area of focused exam. Musculoskeletal/Neurologic: Cervical Spine Inspection: Posture: Normal. Ecchymosis: No ecchymosis noted of the examined area. Palpation: Tender to palpation: directly over the cervical spine and paraspinal musculature bilaterally Range of Motion: Limited in extension and lateral bend bilaterally. Strength: Weakness with speed runner strength bilaterally. 4/5 with resisted elbow flexion on the right. Otherwise within normal limits for age Sensation: Sensation to light touch altered over digits 1-3 bilaterally. Reflexes: Right Biceps: 3+. Left Biceps: 3+. Right Brachioradialis: 3+. Left Brachioradialis: 3+. Right Triceps: 2+. Left Triceps: 2+. Special Tests: Spurling's: Equivocal, produces posterior neck pain without radicular pain, numbness, or tingling. Phalen's: Positive, reproduces symptomatic numbness/tingling. Tinel's at carpal tunnel: Normal. Tinel's at cubital tunnel: Normal. Tandem gait: Unsteady, unable to complete. External Notes No pertinent interval updates Labs Lab Results Component Value Date HGBA1C 6.2 (H) 08/27/2023 Lab Results Component Value Date CREATININE 0.46 (L) 10/19/2023 Lab Results Component Value Date SEDRATEBYMOD 2 01/10/2024 Lab Results Component Value Date CREACTIVEPRO 3.0 01/10/2024 Imaging No new imaging since last visit Cervical Spine MRI Date: 07/22/2019 Findings: Anterior plate and screw fixation is present at C5-C7. There is minimal reversal of the mid cervical lordosis. Minimal anterior listhesis is present at C3/C4. The cervical vertebral bodies are in gross anatomic alignment. There is no acute fracture. There isno focal marrow replacing lesion. The cervical cord is grossly of normal caliber without signal abnormality. There is no cerebellar tonsillar ectopia. The paraspinal musculature is grossly unremarkable. At the C2/C3 level, mild degenerative facet changes are present. The central canal is patent. Thereis no significant foraminal narrowing. At the C3/C4 level, the central canal and foramina are patent. Mild degenerative facet changes are present. At the C4/C5 level, small broad-based posterior disc osteophyte complex causes impression on the ventral thecal sac with mild flattening of the ventral cord. Mild narrowing of the central canal is noted. The foramina are patent. Mild degenerative facet changes are noted. At the C5/C6 level, anterior cervical fusion is present. Small posterior osteophytes cause mild impression on the ventral thecal sac. The central canal is otherwise patent. Minimal left and no significant right-sided foraminal narrowing is noted. At the C6/C7 level, anterior plate and screw fixation is present. Tiny posterior osteophytes are present. The central canal is patent. Moderate bilateral foraminal narrowing is noted. At the C7/T1 level, the central canal and foramina are patent. Minimal degenerative facet changes are present. Impression: Anterior plate and screw fixation from C5-C7. Mild posterior disc bulging at C4/C5 causes mild flattening of the ventral cord. Minimal anterior listhesis at C3/C4. EMG/NCT Date: 01/16/2024 Impression: This is an abnormal study. There is electrophysiological evidence of a right median neuropathy at or distal to the wrist, e.g.carpal tunnel syndrome, which is mild in severity electrophysiologically. There is also evidence of a chronic, inactive, right-sided C7 radiculopathy with no evidence of active ongoing denervation at that level. There is no evidence of a mononeuropathy affecting the left upper extremity on this study. There is no evidence of an active right or left-sided cervical radiculopathy on this study. Procedure Procedure completed today, details below Informed Consent: Prior to the procedure, the patient's allergies were reviewed. The procedure site was marked. The procedure team checked for proper functioning of devices and supplies to be used for the procedure. The procedure team reviewed the relevant diagnostic tests pertinent to the procedure. The risks, benefits, alternatives, and anticipated outcomes of the procedure were discussed. Consent included possibility of bleeding, infection, increased pain, hyperglycemia, steroid flare, hypopigmentation and fat atrophy. The roles and tasks of the personnel to be involved were discussed with the patient, who wished to proceed. Procedure details: Injection site - Bilateral carpal tunnel. Injectate - 0.5 ml betamethasone with 0.5 ml of 1% lidocaine. The injection site was prepped in the usual sterile manner. Ethyl chloride mist spray was used to numb the skin. Needle advanced to target without difficulty. Following negative pull back aspiration, injectate delivered without resistance. After the injection, a bandage was placed over the injection site. The patient tolerated the procedure well with no adverse effects. Post-injection instructions were reviewed with the patient and the patient voiced understanding. Assessment Diagnosis Plan 1. Numbness and tingling in both hands betamethasone acetate-betamethasone sodium phosphate (Celestone) injection 6 mg lidocaine (Xylocaine) 1 % injection 1 mL 2. Weakness of both hands betamethasone acetate-betamethasone sodium phosphate (Celestone) injection 6 mg lidocaine (Xylocaine) 1 % injection 1 mL 3. Carpal tunnel syndrome, right betamethasone acetate-betamethasone sodium phosphate (Celestone) injection 6 mg lidocaine (Xylocaine) 1 % injection 1 mL 4. Chronic neck pain with history of cervical spinal surgery MR cervical spine w and wo contrast 5. Cervical radiculopathy MR cervical spine w and wo contrast 6. Rheumatoid arthritis involving multiple sites, unspecified whether rheumatoid factor present (HCC) [facility] [place] Rheumatology Plan Activity: Avoid/limit aggravating factors. Post-injection education handout provided today. Splint/brace as directed. Medication(s): No new medications prescribed today. Finish prednisone burst this weekend. Test(s)/Imaging/Referral(s): Cervical Spine MRI ordered today. Chronic, worsening symptoms in the setting of prior spine surgery. Pre-injection, pre-surgical planning. Bilateral carpal tunnel injections performed in office today. Procedural details noted above. Referral to Rheumatology. Additional Intervention(s): Consider referral back to Orthopedic Surgery. Follow up: Pending results of MRI. Sooner as needed. Jake Franco MD 01/31/2024 3:23 PM Please note that portions of this note may have been completed with voice recognition software. Documentation reviewed prior to signing but minor errors in welder shielded metal arc may have occurred. documented in this [facility]08-30-2024 Instructions* Patient Instructions* Citlali Morrison - 01/31/2024 3:30 PM EDT INSTRUCTIONS FOR MRI: We have to get approval from your insurance company for your MRI of your Cervical Spine which can take up to 3 weeks or longer. Once we have approval from your insurance, Barbie from our office will call you with your test date and time. She will make your follow up appt with at that time to review the results. If Barbie leaves you a message please call [phone] to make your follow up with . If you get your MRI done at facility that is outside of [facility] you will need to get the images burned on a disc. You will need to bring that disc to your follow up appointment since the provider can not see the images from outside facilities. documented in this [facility]08-15-2024 Health system Neurology Lab EMG/NCS report: Patient: Chantal Linares AGE: 73 y.o. Handedness: Right Gender: Female Referring physician: Jake Franco MD Study date: 01/16/24 Reason for referral: Patient presents with bilateral hand pain and paresthesia. The patient has weakness in the right hand greater than the left hand. Patient also has neck pain. EMG/nerve conduction study of the bilateral upper extremities is done to evaluate for mononeuropathy affecting the right or left upper extremity versus right or left cervical radiculopathy. Summary: The left median sensory nerve action potential was unremarkable. The right median sensory nerve action potential was unremarkable. The left ulnar sensory nerve action potential was unremarkable. The right ulnar sensory nerve action potential was unremarkable. The left radial sensory nerve action potential was unremarkable. The right radial sensory nerve action potential was unremarkable. The left median to ulnar palmar comparison mixed nerve action potential was unremarkable. The right median to ulnar palmar comparison mixed nerve action potential was remarkable for a prolonged median peak latency compared to its ulnar counterpart. The left median to radial thumb comparison study was unremarkable. The right median to radial thumb comparison study was remarkable for a prolonged median peak latency compared to its radial counterpart. The left median to APB compound muscle action potential was unremarkable. The right median to APB compound muscle action potential was unremarkable. The left ulnar to ADM compound muscle action potential was unremarkable. The right ulnar to ADM compound muscle action potential was unremarkable. The left ulnar to FDI compound muscle action potential was unremarkable. The right ulnar to FDI compound muscle action potential was unremarkable. Concentric needle EMG was performed in the bilateral upper extremities. No increased insertional activity, fibrillation potentials, fasciculation potentials or positive sharp waves were seen in any muscle tested. Motor unit action potentials demonstrated normal morphology and firing pattern throughout except for the right pronator teres and right triceps brachii which showed increased amplitude, duration and reduced recruitment. Impression: This is an abnormal study. There is electrophysiological evidence of a right median neuropathy at or distal to the wrist, e.g. carpal tunnel syndrome, which is mild in severity electrophysiologically. There is also evidence of a chronic, inactive, right-sided C7 radiculopathy with no evidence of active ongoing denervation at that level. There is no evidence of a mononeuropathy affecting the left upper extremity on this study. There is no evidence of an active right or left-sided cervical radiculopathy on this study. All normal values/reference values for this study were taken from the [facility] reference values. This dictation was done by using the [employer] dictation system. It has been proofread but still may contain unrecognized voice recognition errors.[facility] [id number] Procedure note* Benry Louis, - 01/16/2024 12:30 PM EDTAssociated Order(s): NERVE CONDUCTION TEST WITH EMG [facility] Neurology Lab EMG/NCS report: Patient: Chantal Linares AGE: 73 y.o. Handedness: Right Gender: Female Referring physician: Jake Franco MD Study date: 01/16/24 Reason for referral: Patient presents with bilateral hand pain and paresthesia. The patient has weakness in the right hand greater than the left hand. Patient also has neck pain. EMG/nerve conductionstudy of the bilateral upper extremities is done to evaluate for mononeuropathy affecting the rightor left upper extremity versus right or left cervical radiculopathy. Summary: The left median sensory nerve action potential was unremarkable. The right median sensory nerve action potential was unremarkable. The left ulnar sensory nerve action potential was unremarkable. The right ulnar sensory nerve action potential was unremarkable. The left radial sensory nerve action potential was unremarkable. The right radial sensory nerve action potential was unremarkable.The left median to ulnar palmar comparison mixed nerve action potential was unremarkable. The rightmedian to ulnar palmar comparison mixed nerve action potential was remarkable for a prolonged median peak latency compared to its ulnar counterpart. The left median to radial thumb comparison study was unremarkable. The right median to radial thumb comparison study was remarkable for a prolonged median peak latency compared to its radial counterpart. The left median to APB compound muscle action potential was unremarkable. The right median to APB compound muscle action potential was unremarkable. The left ulnar to ADM compound muscle action potential was unremarkable. The right ulnar to ADM compound muscle action potential was unremarkable. Theleft ulnar to FDI compound muscle action potential was unremarkable. The right ulnar to FDI compound muscle action potential was unremarkable. Concentric needle EMG was performed in the bilateral upper extremities. No increased insertional activity, fibrillation potentials, fasciculation potentials or positive sharp waves were seen in any muscle tested. Motor unit action potentials demonstrated normal morphology and firing pattern throughout except for the right pronator teres and right triceps brachii which showed increased amplitude, duration and reduced recruitment. Impression: This is an abnormal study. There is electrophysiological evidence of a right median neuropathy at or distal to the wrist, e.g. carpal tunnel syndrome, which is mild in severity electrophysiologically. There is also evidence of a chronic, inactive, right-sided C7 radiculopathy with no evidence of active ongoing denervation at that level. There is no evidence of a mononeuropathy affecting the left upper extremity on this study. There is no evidence of an active right or left-sided cervical radiculopathy on this study. All normal values/reference values for this study were taken from the [facility] reference values. This dictation was done by using the [employer] dictation system. It has been proofread but still may contain unrecognized voice recognition errors. [employer] Work Phone: [phone] Procedure note* Berny Louis DO - 01/16/2024 12:30 PM EDTAssociated Order(s): NERVE CONDUCTION TEST WITH EMG [employer] [facility] Neurology Lab EMG/NCS report: Patient: Chantal Linares AGE: 73 y.o. Handedness: Right Gender: Female Referring physician: Jake Franco MD Study date: 01/16/24 Reason for referral: Patient presents with bilateral hand pain and paresthesia. The patient has weakness in the right hand greater than the left hand. Patient also has neck pain. EMG/nerve conductionstudy of the bilateral upper extremities is done to evaluate for mononeuropathy affecting the rightor left upper extremity versus right or left cervical radiculopathy. Summary: The left median sensory nerve action potential was unremarkable. The right median sensory nerve action potential was unremarkable. The left ulnar sensory nerve action potential was unremarkable. The right ulnar sensory nerve action potential was unremarkable. The left radial sensory nerve action potential was unremarkable. The right radial sensory nerve action potential was unremarkable.The left median to ulnar palmar comparison mixed nerve action potential was unremarkable. The rightmedian to ulnar palmar comparison mixed nerve action potential was remarkable for a prolonged median peak latency compared to its ulnar counterpart. The left median to radial thumb comparison study was unremarkable. The right median to radial thumb comparison study was remarkable for a prolonged median peak latency compared to its radial counterpart. The left median to APB compound muscle action potential was unremarkable. The right median to APB compound muscle action potential was unremarkable. The left ulnar to ADM compound muscle action potential was unremarkable. The right ulnar to ADM compound muscle action potential was unremarkable. Theleft ulnar to FDI compound muscle action potential was unremarkable. The right ulnar to FDI compound muscle action potential was unremarkable. Concentric needle EMG was performed in the bilateral upper extremities. No increased insertional activity, fibrillation potentials, fasciculation potentials or positive sharp waves were seen in any muscle tested. Motor unit action potentials demonstrated normal morphology and firing pattern throughout except for the right pronator teres and right triceps brachii which showed increased amplitude, duration and reduced recruitment. Impression: This is an abnormal study. There is electrophysiological evidence of a right median neuropathy at or distal to the wrist, e.g. carpal tunnel syndrome, which is mild in severity electrophysiologically. There is also evidence of a chronic, inactive, right-sided C7 radiculopathy with no evidence of active ongoing denervation at that level. There is no evidence of a mononeuropathy affecting the left upper extremity on this study. There is no evidence of an active right or left-sided cervical radiculopathy on this study. All normal values/reference values for this study were taken from the [facility] reference values. This dictation was done by using the [employer] dictation system. It has been proofread but still may contain unrecognized voice recognition errors. documented in this [facility]08-09-2024 History of Present illness Narrative* Jake Franco MD - 01/10/2024 1:00 PM EDT Images from the original note were not included. [facility] [address] [place] [address] [place] [id number] Dept: [phone] Dept Chief Complaint Patient presents with Hand Pain Bilateral Subjective History of Present Illness: Chantal Linares is a 73 y.o. right hand dominant female who presents today for evaluation of bilateral hand/wrist pain. Location: Right thumb, palm, & generalized wrist Left thumb, and generalized wrist Onset: chronic, acutely worsening over the past 6 months Injury: no Quality: aching, tight/stiff, sharp, burning, and swelling Mechanical symptoms: no Radiation of symptoms: yes - Right forearm to the elbow Severity: 6/10 at rest and 10/10 at worst Exacerbating factor(s): repetitive use, gripping, pinching, opening jars, and performing daily hygiene Relieving factor(s): none Timing: all day - worst in morning, afternoon ok, worsens again in the evening Imaging to date: Hand & Wrist X-rays 12/2023 Treatment to date: PT/OT/HEP: no Ice: yes, helpful Heat: yes, helpful Medications: Topicals: yes, Diclofenac/Voltaren, helpful Tylenol: yes, helpful NSAIDs: yes, Ibuprofen/Motrin/Advil, helpful Oral steroids: yes, Prednisone, helpful Muscle relaxants: yes, Tizanidine/Zanaflex, not helpful Nerve medications: yes, Gabapentin/Neurontin, helpful Targeted injections: none Assistive devices: brace (Right side), helpful Prior surgery: no 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 Respiratory: Breathing comfortably on room air. No respiratory distress. Skin: Warm, dry, intact. No visible rashes or erythema overlying area of focused exam. Musculoskeletal/Neurologic: Bilateral Hands. Contralateral side is normal unless otherwise noted. Inspection: Swelling: No significant joint effusions. Ecchymosis: No ecchymosis noted of the examined area. Atrophy: Mild thenar muscle atrophy bilaterally. Palpation: Tender to palpation: diffusely tender to palpation, equivocal Range of Motion: Full, pain with maximal flexion. Locking/Triggering: None. Strength: Weakness with speed runner strength bilaterally. Otherwise within normal limits for age Sensation: Sensation to light touch intact, symmetric of the examined bilateral upper extremities. Special Tests: Anatomic snuffbox: Generalized pain, equivocal. CMC grind: Positive bilaterally. TFCC grind: Positive bilaterally. Kalyan's: Generalized pain, equivocal. Phalen's: Positive, reproduces symptomatic numbness/tingling. Tinel's at carpal tunnel: Normal. Tinel's at cubital tunnel: Normal. External Notes No pertinent interval updates Labs Lab Results Component Value Date HGBA1C 6.2 (H) 08/27/2023 Lab Results Component Value Date CREATININE 0.46 (L) 10/19/2023 Imaging Images reviewed with patient today I have personally reviewed the images pertinent to the appointment today Left Hand X-rays Date: 12/17/2023 Findings: Three views of the left hand shows no acute fracture or dislocation. There are mild degenerative changes of the CMC joint. The alignment is anatomic. Bony mineralization and soft tissues are normal. IMPRESSION: Mild degenerative changes involving the CMC joint. Left Wrist X-rays Date: 12/17/2023 Findings: Mild degenerative change at the first CMC joint. Joint spaces are otherwise maintained. No erosive changes. No fracture dislocation or acute bone destruction. No soft tissue gas or foreign body. IMPRESSION: Mild degenerative changes at first CMC joint. Right Hand X-rays Date: 12/03/2023 Findings: There is no fracture or dislocation. Some minor spurring about the first carpometacarpal joint. Marked narrowing and articular surface sclerosis between the trapezium and scaphoid. Cystic focus within the scaphoid measuring 0.4 cm, likely benign process. No other bone lesion. There is no soft tissue abnormality. IMPRESSION: Arthritic change within the lateral wrist and base of the thumb. No acute abnormality. Right Wrist X-rays Date: 12/03/2023 Findings: Diffuse osteopenia. Mild degenerative change of the thumb CMC joint and the triscaphe articulation.. No acute fracture. No dislocation. There is no significant soft tissue abnormality. IMPRESSION: Mild DJD. Diffuse osteopenia. EMG/NCT None available Procedure No procedures completed today Assessment Diagnosis Plan 1. Bilateral hand pain Rheumatoid factor MAX C-reactive protein Sedimentation rate, automated Cyclic citrul peptide antibody, IgG NERVE CONDUCTION TEST WITH EMG Rheumatoid factor MAX C-reactive protein Sedimentation rate, automated Cyclic citrul peptide antibody, IgG General supply request: DME Order for Upper extremity 2. Weakness of both hands NERVE CONDUCTION TEST WITH EMG General supply request: DME Order for Upper extremity 3. Rheumatoid arthritis involving multiple sites, unspecified whether rheumatoid factor present (HCC) Rheumatoid factor MAX C-reactive protein Sedimentation rate, automated Cyclic citrul peptide antibody, IgG Rheumatoid factor MAX C-reactive protein Sedimentation rate, automated Cyclic citrul peptide antibody, IgG General supply request: DME Order for Upper extremity Plan Activity: Avoid/limit aggravating factors. Splint/brace as directed. Medication(s): Prednisone as prescribed. Test(s)/Imaging/Referral(s): Fitted for cock-up wrist splints today. EMG/NCT ordered today. Rheumatoid/inflammatory labs ordered today. Additional Intervention(s): Consider corticosteroid injection(s). Consider referral to Orthopedic Surgery. Consider referral to Rheumatology. Follow up: After EMG/NCT. Sooner as needed. Jake Franco MD 01/10/2024 1:28 PM Please note that portions of this note may have been completed with voice recognition software. Documentation reviewed prior to signing but minor errors in welder shielded metal arc may have occurred. documented in this [facility]05-18-2024 Emergency department Note* Wen Zuñiga RN - 10/19/2023 11:27 PM EDT Reviewed discharge instructions and patient verbalized understanding. No further questions. Patientambulated out of ED with strong steady gait. Respirations even and non labored. No acute distress. A&O x4. Wen Zuñiga RN 10/19/23 [id number] [id number]* Wen Zuñiga RN - 10/19/2023 11:27 PM EDT Reviewed discharge instructions and patient verbalized understanding. No further questions. Patientambulated out of ED with strong steady gait. Respirations even and non labored. No acute distress. A&O x4. Wen Zuñiga RN 10/19/23 [id number] * Chris Bartlett DO - 10/19/2023 9:34 PM EDT Emergency Department Encounter [facility] ED Patient: Chantal Linares : 1950 Date of Evaluation: 10/19/2023 ED Provider: Chris Bartlett DO Chief Complaint No chief complaint on file. JOCELINE Linares is a 73 y.o. female who presents to the emergency department complaining of flulike symptoms. Patient reports has been feeling ill since , 3 days prior. She has chills, malaise, body aches, nausea, slight abdominal pain. She has a sore throat. Denies runny nose. Denies chest pain or shortness of breath. Feels similar when she had COVID-19 and influenza however these were both few months prior. Additional history obtained from : n/a Barriers to obtaining history from patient: n/a ROS: Review of Systems completed as follows: (Bold = positive, Not bold = negative) GENERAL: fevers, chills, malaise ENT: runny nose, congestion, sore throat, ear pain NEURO: weakness, numbness of tingling, headache CARDIOVASCULAR: chest pain, syncope PULMONARY: shortness of breath, cough, wheezing GASTROINTESTINAL: nausea, vomiting, abdominal pain, diarrhea, constipation, MUSCULOSKELETAL: pain GENITAL/URINARY: dysuria, hematuria, increased urinary frequency, hesitancy, flank pain SKIN: rash, lesions, wound Past History Past Medical History: Diagnosis Date Acute bacterial sinusitis 09/07/2018 Anxiety CAD (coronary artery disease) COPD (chronic obstructive pulmonary disease) (HCC) Depression Diastolic dysfunction, left ventricle Diverticulosis Fibromyalgia GERD (gastroesophageal reflux disease) Hyperlipidemia Irritable bowel syndrome Osteochondral lesion of talar dome SCHEDULED FOR THE SURGERY ON 08/16/22 AT [facility] (postoperative nausea and vomiting) Prediabetes controlled by diet Rheumatoid arthritis (HCC) Spondylolisthesis, lumbar region Past Surgical History: Procedure Laterality Date ADENOIDECTOMY ANKLE SURGERY Right 08/16/2022 Right repair peroneal tendon and ankle arthroscopic debridement talar osteochondral lesion - Dr. Jimenez APPENDECTOMY CARDIAC CATHETERIZATION 10 11 2014 NO INTERVENTION CATARACT EXTRACTION CHOLECYSTECTOMY COLON SURGERY 03 16 2013 approx; sigmoidectomy diverticulosis COLON SURGERY COLONOSCOPY 01 06 2013 colonic polyps, diverticulosis, hemorrhoids HYSTERECTOMY NECK SURGERY C5-C7 ACDF (Dr. Adam) TONSILLECTOMY TONSILLECTOMY AND ADENOIDECTOMY (HISTORICAL) TUBAL LIGATION UPPER GASTROINTESTINAL ENDOSCOPY 01 06 2013 see report Social History Socioeconomic History Marital status: Tobacco Use Smoking status: Every Day Packs/day: 1 Types: Cigarettes Smokeless tobacco: Never Vaping Use Vaping Use: Never used Substance and Sexual Activity Alcohol use: No Drug use: No Sexual activity: Defer Comment: Social Determinants of Health Transportation Needs: No Transportation Needs (08/09/2022) PRAPARE - Transportation Lack of Transportation (Medical): No Lack of Transportation (Non-Medical): No Housing Stability: Unknown (08/09/2022) Housing Stability Vital Sign Unable to Pay for Housing in the Last Year: No Unstable Housing in the Last Year: No I have reviewed the history above as provided by nursing notes. Medications/Allergies Discharge Medication List as of 10/19/2023 11:05 PM CONTINUE these medications which have NOT CHANGED Details albuterol (ProAir HFA) 108 (90 Base) MCG/ACT inhaler Inhale 2 puffs every 4 hours as needed for wheezing or shortness of breath., Starting Ashley 08/01/2023, Until Sat07/31/2024 at 2359, Normal ALPRAZolam (Xanax) 0.25 MG tablet take 1 tablet by mouth NIGHTLY NEEDED FOR SLEEP OR ANXIETY FORUP TO 90 DAYS, Normal budesonide-formoterol (Symbicort) 160-4.5 MCG/ACT inhaler Inhale 2 puffs in the morning and 2 puffsin the evening. Rinse mouth with water after use to reduce aftertaste and incidence of candidiasis.Do not swallow.., Starting Ashley 06/21/2022, Until Sat08/23/2023, Normal cyanocobalamin (Vitamin B-12) 100 MCG tablet Take 50 mcg by mouth in the morning., Historical Med Fluticasone Furoate-Vilanterol (BREO ELLIPTA IN) inhale 1 puff by mouth INTO THE LUNGS daily Inhalation for 30, Historical Med gabapentin (Neurontin) 100 MG capsule Take 300 mg by mouth 2 times daily., Starting Sat03/12/2022,Historical Med lansoprazole (Prevacid) [address] capsule Take 30 mg by mouth in the morning., Starting Sat02/11/2022, Historical Med losartan (Cozaar) 50 MG tablet Nightly., Starting Sat02/06/2022, Historical Med montelukast (Singulair) 10 MG tablet Take 1 tablet (10 mg) by mouth Nightly., Starting Sat09/16/2023, Until Sat09/15/2024, Normal naloxone (Narcan) 4 mg/0.1 mL nasal spray instill 1 spray in 1 nostril if needed for OPIOID OVERDOSE may re... (REFER TO PRESCRIPTION NOTES)., Historical Med sertraline (Zoloft) 100 MG tablet take 2 tablets by mouth once daily, Normal simvastatin (Zocor) 40 MG tablet take 1 tablet by mouth once daily, Starting Sat06/26/2023, Normal tiZANidine (Zanaflex) 4 MG tablet Take 4 mg by mouth 3 times daily as needed., Starting Sat03/12/2022, Historical Med traMADol (Ultram) 50 MG tablet take 1 tablet by mouth once daily if needed for pain, Historical Med Allergies Allergen Reactions Lisinopril Other reaction(s): AOF Propranolol Hcl Other reaction(s): Other (See Comments) [place] like I was floating I have reviewed the history above as provided by nursing notes. Physical Exam ED Triage Vitals Temp Heart Rate Resp BP 10/19/23213810/19/23214010/19/23214010/19/232140 36.8 C (98.2 F) 92 16 (!) 158/86 SpO2 Temp Source Heart Rate Source Patient Position 10/19/23214010/19/23213810/19/23214010/19/232140 97 % Oral Monitor Lying BP Location FiO2 (%) 05/18/24 2141 -- Right arm GENERAL: The patient appears nourished and normally developed. Vital signs as documented. Ill-appearing, nontoxic. EYES: PERRL. No scleral icterus or orbital trauma noted. HEENT: Mucous membranes moist. Nares patent without copious rhinorrhea. LUNGS: Lungs are clear to auscultation, without any respiratory distress. CARDIAC: Rhythm is regular. No murmur appreciated ABDOMEN: Nontender, soft, with no obvious masses, and no peritoneal signs. EXTREMITIES: Non edematous, with no obvious deformities. SKIN: Good color, with no significant rashes. No pallor. NEURO: No obvious neurological deficits, normal sensation and strength bilaterally. Diagnostics Labs: Results for orders placed or performed during the hospital encounter of 10/19/23 SARS-CoV-2, Flu A/B, and RSV Combo Specimen: Nasopharynx; Swab Result Value Ref Range SARS-CoV-2 Not Detected Not Detected Respiratory Syncytial Virus Not Detected Not Detected Influenza A Not Detected Not Detected Influenza B Not Detected Not Detected CBC auto differential Result Value Ref Range Auto WBC 6.9 3.6 - 10.7 10*3/uL RBC 4.50 3.80 - 5.20 10*6/uL Hemoglobin 14.0 11.7 - 16.0 g/dL Hematocrit 42.3 35.0 - 47.0 % MCV 94.0 77.0 - 99.0 fL MCH 31.1 26.0 - 34.0 pg MCHC 33.1 30.5 - 36.0 % RDW 13.8 11.5 - 15.0 % Platelets 326 140 - 440 10*3/uL MPV 8.5 (L) 9.0 - 12.7 fL nRBC 0.0 0.0 - 2.0 /100 WBCs Neutrophils Relative 72.6 38.0 - 82.0 % Lymphocytes Relative 21.5 15.0 - 45.0 % Monocytes Relative 5.5 5.0 - 13.0 % Eosinophils Relative 0.0 0.0 - 6.0 % Basophils Relative 0.3 0.0 - 2.0 % Immature Grans % 0.1 0.0 - 2.0 % Neutrophils Absolute 5.0 1.8 - 7.5 10*3/uL Lymphocytes Absolute 1.5 1.0 - 4.3 10*3/uL Monocytes Absolute 0.4 0.0 - 0.9 10*3/uL Eosinophils Absolute 0.0 0.0 - 0.5 10*3/uL Basophils Absolute 0.0 0.0 - 0.2 10*3/uL Immature Grans Absolute 0.0 <0.1 10*3/uL Comprehensive metabolic panel Result Value Ref Range SODIUM 135 135 - 145 mmol/L POTASSIUM 4.3 3.5 - 5.1 mmol/L CHLORIDE 98 98 - 107 mmol/L CARBON DIOXIDE 29 22 - 30 mmol/L ANION GAP 8 3 - 13 mmol/L UREA NITROGEN 22 (H) 7 - 17 mg/dL CREATININE 0.46 (L) 0.52 - 1.04 mg/dL GLUCOSE 107 (H) 70 - 100 mg/dL CALCIUM 9.8 8.4 - 10.4 mg/dL AST (SGOT) 33 15 - 46 U/L ALT 18 0 - 34 U/L ALKALINE PHOSPHATASE 65 38 - 126 U/L ALBUMIN 4.5 3.5 - 5.0 g/dL BILIRUBIN, TOTAL 0.6 0.2 - 1.3 mg/dL TOTAL PROTEIN 7.4 6.3 - 8.2 g/dL eGFR >90.0 >60.0 mL/min/1.73m*2 CK Result Value Ref Range CK 176 (H) 30 - 170 U/L ECG 12 lead Result Value Ref Range Heart Rate 84 bpm QRSD Interval 76 ms QT Interval 370 ms QTC Interval 438 ms P [place] 61 degrees QRS [place] 40 degrees T Wave [place] 31 degrees DE Interval 174 ms Radiographs: XR chest 1 view Final Result FINDINGS/IMPRESSION: Limitations: Mild patient rotation. Lines, tubes, and devices: None. Cardiomediastinal silhouette: Heart size is within normal limits. Mild tortuosity of the thoracic aorta Lungs/Pleura: Streaky left greater than right basilar opacities likely reflect atelectasis. Prominence of the central pulmonary bronchovascular markings could reflect mild bronchitis or less likely mild pulmonary vascular congestion. No sizable pleural effusions. No pneumothorax. Osseous structures: Degenerative spondylosis in the visualized spine. Plate and screw fixation lower cervical spine. Soft tissues: No soft tissue abnormality is detected. Report Dictated on Electronically Signed By: Rigoberto Gong MD Electronically Signed Date/Time: 10/19/2023 10:14 PM EDT Procedures/EKG: EKG Interpreted in Mid[employer] software by myself SCREENINGS EMERGENCY DEPARTMENT COURSE and DIFFERENTIAL DIAGNOSIS/MDM: Vitals: Vitals: 10/19/23 2139 10/19/23 2141 10/19/236 10/19/230 BP: (!) 158/86 (!) 146/75 BP Location: Right arm Left arm Patient Position: Lying Lying Pulse: 92 87 Resp: 16 14 Temp: 36.8 C (98.2 F) TempSrc: Oral SpO2: 97% 99% Weight: 68.9 kg (152 lb) Height: 1.702 m (5' 7") The patient presented with a chief complaint of viral symptoms. Vital signs reviewed. Examination reveals an ill-appearing female who is nontoxic-appearing. She has no focal signs of infection. Considered pneumonia, viral illness, dehydration, rhabdomyolysis with reported severe body aches. She wastreated with IV Toradol, IV Zofran, IV fluids. Labs showed grossly normal CBC, normal metabolic panel, CK level of 176. Viral testing was negative. I ordered a chest x-ray to ensure there is no pneumonia and this was personally reviewed showing no acute consolidation. There were findings to raise suspicion for bronchitis or viral illness. I suspect this is the case for the patient. She was treated with a dose of Decadron for her symptoms and I encouraged her to take Tylenol and ibuprofen at home. I will prescribe Zofran for home. I did order an EKG to ensure there is no evidence of acute coronary syndrome and this was reviewed, personallyshowing personally reviewed showing sinus rhythm without any acute ischemic findings. Patient be discharged with follow-up to her primary care doctor in 1 week, follow-up return for worsening symptoms. Diagnoses as of 10/20/23 0200 Viral illness Diagnostics interpreted by me: Reviewed EKG and chest x-ray as above ED Medications managed: Medications ketorolac (Toradol) injection 15 mg (15 mg IntraVENous Given 10/19/232223) sodium chloride 0.9 % bolus 1,000 mL (0 mL IntraVENous Stopped 10/19/232320) dexAMETHasone (PF) (Decadron) injection 10 mg (10 mg IntraVENous Given 10/19/23 231) ondansetron (Zofran) injection 4 mg (4 mg IntraVENous Given 10/19/23 0200) Patients symptoms are consistent with sepsis, severe sepsis or septic shock (if yes, use ".sepsiscoremeasure") - no Final Impression 1. Viral illness DISPOSITION discharge Comment: Please note this report has been produced using speech recognition software and may contain errors related to that system including errors in grammar, punctuation, and spelling, as well as words and phrases that may be inappropriate. If there are any questions or concerns please feel free to contact the dictating provider for clarification. Chris Bartlett DO [employer] [facility] Chris Bartlett DO 10/20/23 0203 * Wen Zuñiga RN - 10/19/2023 9:34 PM EDT Patient ambulatory with visitor to ED5 without difficulty. She states that she has been Sick since . She reports having Vomiting Saturday and Saturday. Also endorses Nausea and headache. Body aches, especially in posterior legs, worse than she has ever had. She presents due to symptoms getting worse. Last dose of Tylenol x2 at 1300 and IBU x2 at 1300, zofran at 1300 Has not been able to keep anything down since yesterday. Has not tried drinking anything today due to nausea. She has new abdominal pain in the mid and left abdomen, described as aching. No diarrhea. Patient appears to be in no acute distress. Skin is warm, dry, and pink. A&O x3. Respirations even and non labored. Bed in locked and low position. Call light within reach. Patient has no furtherneeds. documented in this [facility]05-18-2024 Hospital Discharge instructions* Discharge Instructions* Chris Bartlett DO - 10/19/2023 11:05 PM EDT Please continue to take Tylenol as needed for pain. You may consider trying some ibuprofen to help with your symptoms. You have been treated with steroids which should reduce the inflammation in yourthroat and also aid in some of your symptoms. Take the nausea medication as needed at home. * Attachments The following attachments cannot be sent through Care Everywhere. * Viral Syndrome Discharge Instructions ([place]) documented in this [facility]05-18-2024 Emergency department Triage note* Wen Zuñiga RN - 10/19/2023 9:34 PM EDT Patient ambulatory with visitor to ED5 without difficulty. She states that she has been Sick since . She reports having Vomiting Saturday and Saturday. Also endorses Nausea and headache. Body aches, especially in posterior legs, worse than she has ever had. She presents due to symptoms getting worse. Last dose of Tylenol x2 at 1300 and IBU x2 at 1300, zofran at 1300 Has not been able to keep anything down since yesterday. Has not tried drinking anything today due to nausea. She has new abdominal pain in the mid and left abdomen, described as aching. No diarrhea. Patient appears to be in no acute distress. Skin is warm, dry, and pink. A&O x3. Respirations even and non labored. Bed in locked and low position. Call light within reach. Patient has no furtherneeds. [id number] Emergency [facility] Note* Chris Bartlett DO - 10/19/2023 9:34 PM EDT Emergency Department Encounter [facility] ED Patient: Chantal Linares : 1950 Date of Evaluation: 10/19/2023 ED Provider: Chris Bartlett DO Chief Complaint No chief complaint on file. JOCELINE Linares is a 73 y.o. female who presents to the emergency department complaining of flulike symptoms. Patient reports has been feeling ill since , 3 days prior. She has chills, malaise, body aches, nausea, slight abdominal pain. She has a sore throat. Denies runny nose. Denies chest pain or shortness of breath. Feels similar when she had COVID-19 and influenza however these were both few months prior. Additional history obtained from : n/a Barriers to obtaining history from patient: n/a ROS: Review of Systems completed as follows: (Bold = positive, Not bold = negative) GENERAL: fevers, chills, malaise ENT: runny nose, congestion, sore throat, ear pain NEURO: weakness, numbness of tingling, headache CARDIOVASCULAR: chest pain, syncope PULMONARY: shortness of breath, cough, wheezing GASTROINTESTINAL: nausea, vomiting, abdominal pain, diarrhea, constipation, MUSCULOSKELETAL: pain GENITAL/URINARY: dysuria, hematuria, increased urinary frequency, hesitancy, flank pain SKIN: rash, lesions, wound Past History Past Medical History: Diagnosis Date Acute bacterial sinusitis 09/07/2018 Anxiety CAD (coronary artery disease) COPD (chronic obstructive pulmonary disease) ([facility]) Depression Diastolic dysfunction, left ventricle Diverticulosis Fibromyalgia GERD (gastroesophageal reflux disease) Hyperlipidemia Irritable bowel syndrome Osteochondral lesion of talar dome SCHEDULED FOR THE SURGERY ON 08/16/22 AT [facility] PONV (postoperative nausea and vomiting) Prediabetes controlled by diet Rheumatoid arthritis ([facility]) Spondylolisthesis, lumbar region Past Surgical History: Procedure Laterality Date ADENOIDECTOMY ANKLE SURGERY Right 08/16/2022 Right repair peroneal tendon and ankle arthroscopic debridement talar osteochondral lesion - Dr. Jimenez APPENDECTOMY CARDIAC CATHETERIZATION 10 11 2014 NO INTERVENTION CATARACT EXTRACTION CHOLECYSTECTOMY COLON SURGERY 03 16 2013 approx; sigmoidectomy diverticulosis COLON SURGERY COLONOSCOPY 01 06 2013 colonic polyps, diverticulosis, hemorrhoids HYSTERECTOMY NECK SURGERY C5-C7 ACDF (Dr. Adam) TONSILLECTOMY TONSILLECTOMY AND ADENOIDECTOMY (HISTORICAL) TUBAL LIGATION UPPER GASTROINTESTINAL ENDOSCOPY 01 06 2013 see report Social History Socioeconomic History Marital status: Tobacco Use Smoking status: Every Day Packs/day: 1 Types: Cigarettes Smokeless tobacco: Never Vaping Use Vaping Use: Never used Substance and Sexual Activity Alcohol use: No Drug use: No Sexual activity: Defer Comment: Social Determinants of Health Transportation Needs: No Transportation Needs (08/09/2022) PRAPARE - Transportation Lack of Transportation (Medical): No Lack of Transportation (Non-Medical): No Housing Stability: Unknown (08/09/2022) Housing Stability Vital Sign Unable to Pay for Housing in the Last Year: No Unstable Housing in the Last Year: No I have reviewed the history above as provided by nursing notes. Medications/Allergies Discharge Medication List as of 10/19/2023 11:05 PM CONTINUE these medications which have NOT CHANGED Details albuterol (ProAir HFA) 108 (90 Base) MCG/ACT inhaler Inhale 2 puffs every 4 hours as needed for wheezing or shortness of breath., Starting Ashley 08/01/2023, Until Sat07/31/2024 at 2359, Normal ALPRAZolam (Xanax) 0.25 MG tablet take 1 tablet by mouth NIGHTLY NEEDED FOR SLEEP OR ANXIETY FORUP TO 90 DAYS, Normal budesonide-formoterol (Symbicort) 160-4.5 MCG/ACT inhaler Inhale 2 puffs in the morning and 2 puffsin the evening. Rinse mouth with water after use to reduce aftertaste and incidence of candidiasis.Do not swallow.., Starting Ashley 06/21/2022, Until Sat08/23/2023, Normal cyanocobalamin (Vitamin B-12) 100 MCG tablet Take 50 mcg by mouth in the morning., Historical Med Fluticasone Furoate-Vilanterol (BREO ELLIPTA IN) inhale 1 puff by mouth INTO THE LUNGS daily Inhalation for 30, Historical Med gabapentin (Neurontin) 100 MG capsule Take 300 mg by mouth 2 times daily., Starting Sat03/12/2022,Historical Med lansoprazole (Prevacid) [address] capsule Take 30 mg by mouth in the morning., Starting Sat02/11/2022, Historical Med losartan (Cozaar) 50 MG tablet Nightly., Starting Sat02/06/2022, Historical Med montelukast (Singulair) 10 MG tablet Take 1 tablet (10 mg) by mouth Nightly., Starting Sat09/16/2023, Until Sat09/15/2024, Normal naloxone (Narcan) 4 mg/0.1 mL nasal spray instill 1 spray in 1 nostril if needed for OPIOID OVERDOSE may re... (REFER TO PRESCRIPTION NOTES)., Historical Med sertraline (Zoloft) 100 MG tablet take 2 tablets by mouth once daily, Normal simvastatin (Zocor) 40 MG tablet take 1 tablet by mouth once daily, Starting Sat06/26/2023, Normal tiZANidine (Zanaflex) 4 MG tablet Take 4 mg by mouth 3 times daily as needed., Starting 03/12/2022, Historical Med traMADol (Ultram) 50 MG tablet take 1 tablet by mouth once daily if needed for pain, Historical Med Allergies Allergen Reactions Lisinopril Other reaction(s): AOF Propranolol Hcl Other reaction(s): Other (See Comments) [place] like I was floating I have reviewed the history above as provided by nursing notes. Physical Exam ED Triage Vitals Temp Heart Rate Resp BP 10/19/23213810/19/23214010/19/23214010/19/232140 36.8 C (98.2 F) 92 16 (!) 158/86 SpO2 Temp Source Heart Rate Source Patient Position 10/19/23214010/19/23213810/19/23214010/19/232140 97 % Oral Monitor Lying BP Location FiO2 (%) 10/19/232140 -- Right arm GENERAL: The patient appears nourished and normally developed. Vital signs as documented. Ill-appearing, nontoxic. EYES: PERRL. No scleral icterus or orbital trauma noted. HEENT: Mucous membranes moist. Nares patent without copious rhinorrhea. LUNGS: Lungs are clear to auscultation, without any respiratory distress. CARDIAC: Rhythm is regular. No murmur appreciated ABDOMEN: Nontender, soft, with no obvious masses, and no peritoneal signs. EXTREMITIES: Non edematous, with no obvious deformities. SKIN: Good color, with no significant rashes. No pallor. NEURO: No obvious neurological deficits, normal sensation and strength bilaterally. Diagnostics Labs: Results for orders placed or performed during the hospital encounter of 10/19/23 SARS-CoV-2, Flu A/B, and RSV Combo Specimen: Nasopharynx; Swab Result Value Ref Range SARS-CoV-2 Not Detected Not Detected Respiratory Syncytial Virus Not Detected Not Detected Influenza A Not Detected Not Detected Influenza B Not Detected Not Detected CBC auto differential Result Value Ref Range Auto WBC 6.9 3.6 - 10.7 10*3/uL RBC 4.50 3.80 - 5.20 10*6/uL Hemoglobin 14.0 11.7 - 16.0 g/dL Hematocrit 42.3 35.0 - 47.0 % MCV 94.0 77.0 - 99.0 fL MCH 31.1 26.0 - 34.0 pg MCHC 33.1 30.5 - 36.0 % RDW 13.8 11.5 - 15.0 % Platelets 326 140 - 440 10*3/uL MPV 8.5 (L) 9.0 - 12.7 fL nRBC 0.0 0.0 - 2.0 /100 WBCs Neutrophils Relative 72.6 38.0 - 82.0 % Lymphocytes Relative 21.5 15.0 - 45.0 % Monocytes Relative 5.5 5.0 - 13.0 % Eosinophils Relative 0.0 0.0 - 6.0 % Basophils Relative 0.3 0.0 - 2.0 % Immature Grans % 0.1 0.0 - 2.0 % Neutrophils Absolute 5.0 1.8 - 7.5 10*3/uL Lymphocytes Absolute 1.5 1.0 - 4.3 10*3/uL Monocytes Absolute 0.4 0.0 - 0.9 10*3/uL Eosinophils Absolute 0.0 0.0 - 0.5 10*3/uL Basophils Absolute 0.0 0.0 - 0.2 10*3/uL Immature Grans Absolute 0.0 <0.1 10*3/uL Comprehensive metabolic panel Result Value Ref Range SODIUM 135 135 - 145 mmol/L POTASSIUM 4.3 3.5 - 5.1 mmol/L CHLORIDE 98 98 - 107 mmol/L CARBON DIOXIDE 29 22 - 30 mmol/L ANION GAP 8 3 - 13 mmol/L UREA NITROGEN 22 (H) 7 - 17 mg/dL CREATININE 0.46 (L) 0.52 - 1.04 mg/dL GLUCOSE 107 (H) 70 - 100 mg/dL CALCIUM 9.8 8.4 - 10.4 mg/dL AST (SGOT) 33 15 - 46 U/L ALT 18 0 - 34 U/L ALKALINE PHOSPHATASE 65 38 - 126 U/L ALBUMIN 4.5 3.5 - 5.0 g/dL BILIRUBIN, TOTAL 0.6 0.2 - 1.3 mg/dL TOTAL PROTEIN 7.4 6.3 - 8.2 g/dL eGFR >90.0 >60.0 mL/min/1.73m*2 CK Result Value Ref Range CK 176 (H) 30 - 170 U/L ECG 12 lead Result Value Ref Range Heart Rate 84 bpm QRSD Interval 76 ms QT Interval 370 ms QTC Interval 438 ms P [place] 61 degrees QRS [place] 40 degrees T Wave [place] 31 degrees DE Interval 174 ms Radiographs: XR chest 1 view Final Result FINDINGS/IMPRESSION: Limitations: Mild patient rotation. Lines, tubes, and devices: None. Cardiomediastinal silhouette: Heart size is within normal limits. Mild tortuosity of the thoracic aorta Lungs/Pleura: Streaky left greater than right basilar opacities likely reflect atelectasis. Prominence of the central pulmonary bronchovascular markings could reflect mild bronchitis or less likely mild pulmonary vascular congestion. No sizable pleural effusions. No pneumothorax. Osseous structures: Degenerative spondylosis in the visualized spine. Plate and screw fixation lower cervical spine. Soft tissues: No soft tissue abnormality is detected. Report Dictated on Electronically Signed By: Rigoberto Gong MD Electronically Signed Date/Time: 10/19/2023 10:14 PM EDT Procedures/EKG: EKG Interpreted in [employer] software by myself SCREENINGS EMERGENCY DEPARTMENT COURSE and DIFFERENTIAL DIAGNOSIS/MDM: Vitals: Vitals: 10/19/23 2139 10/19/23 2141 10/19/23 2226 10/19/23 2320 BP: (!) 158/86 (!) 146/75 BP Location: Right arm Left arm Patient Position: Lying Lying Pulse: 92 87 Resp: 16 14 Temp: 36.8 C (98.2 F) TempSrc: Oral SpO2: 97% 99% Weight: 68.9 kg (152 lb) Height: 1.702 m (5' 7") The patient presented with a chief complaint of viral symptoms. Vital signs reviewed. Examination reveals an ill-appearing female who is nontoxic-appearing. She has no focal signs of infection. Considered pneumonia, viral illness, dehydration, rhabdomyolysis with reported severe body aches. She wastreated with IV Toradol, IV Zofran, IV fluids. Labs showed grossly normal CBC, normal metabolic panel, CK level of 176. Viral testing was negative. I ordered a chest x-ray to ensure there is no pneumonia and this was personally reviewed showing no acute consolidation. There were findings to raise suspicion for bronchitis or viral illness. I suspect this is the case for the patient. She was treated with a dose of Decadron for her symptoms and I encouraged her to take Tylenol and ibuprofen at home. I will prescribe Zofran for home. I did order an EKG to ensure there is no evidence of acute coronary syndrome and this was reviewed, personallyshowing personally reviewed showing sinus rhythm without any acute ischemic findings. Patient be discharged with follow-up to her primary care doctor in 1 week, follow-up return for worsening symptoms. Diagnoses as of 10/20/23 0200 Viral illness Diagnostics interpreted by me: Reviewed EKG and chest x-ray as above ED Medications managed: Medications ketorolac (Toradol) injection 15 mg (15 mg IntraVENous Given 10/19/232223) sodium chloride 0.9 % bolus 1,000 mL (0 mL IntraVENous Stopped 10/19/232320) dexAMETHasone (PF) (Decadron) injection 10 mg (10 mg IntraVENous Given 10/19/232310) ondansetron (Zofran) injection 4 mg (4 mg IntraVENous Given 10/19/232308) Patients symptoms are consistent with sepsis, severe sepsis or septic shock (if yes, use ".sepsiscoremeasure") - no Final Impression 1. Viral illness DISPOSITION discharge Comment: Please note this report has been produced using speech recognition software and may contain errors related to that system including errors in grammar, punctuation, and spelling, as well as words and phrases that may be inappropriate. If there are any questions or concerns please feel free to contact the dictating provider for clarification. Chris Bartlett DO [facility] Chris Bartlett DO 10/20/233 [id number] Telephone encounter Note* Telephone Encounter - Jen Carnes MA - 09/16/2023 9:45 AM EDT Left message to call back the office When patient calls back, please give message below [id number] Miscellaneous Notes* Telephone Encounter - Jen Carnes MA - 09/16/2023 9:45 AM EDT Left message to call back the office When patient calls back, please give message below * Telephone Encounter - Martir Keene MD - 09/13/2023 2:36 PM EDT As we discussed if this does not work she would need to go back to allergy or ENT for possible allergy shots or other management. In regards to the labs, they are stable when compared with previous. * Telephone Encounter - Jonelle Fernandez RN - 09/13/2023 1:56 PM EDT S: Patient spoke with [facility] nurse regarding continued issue with right ear - ear popping and cracking. B: Onset of symptoms/concern over 6 months now. A: Pt states she was seen in the office on 08-23-23 for issues with her right ear popping and cracking. Told that it was allergies and she should try Natacha and Flonase and see what happens. Pt triedAllegra and is using Claritin now; she is out of Flonase now. Still having issues with popping and cracking in right ear only. She was told to call back and let him know how she is doing. Wants to know what else she can try and will need a refill on Flonase or if he wants her to try something else.Denies fever, cough, congestion, ear pain, ear drainage, sore throat. Also pt wants to know what Helene thinks about her blood work results from 08-27-23. R: Will send message to office to review and call pt at [phone]. Pharmacy is current in chart.Pt to call back if any further ques or concerns. Reason for Disposition Ear congestion present > 48 hours Answer Assessment - Initial Assessment Questions 1. LOCATION: "Which ear is involved?" Right ear 2. SENSATION: "Describe how the ear feels." (e.g. stuffy, full, plugged)." Makes popping and cracking noises 3. ONSET: "When did the ear symptoms start?" Off and on for 6 months 4. PAIN: "Do you also have an earache?" If Yes, ask: "How bad is it?" (Scale 1- 10; or mild, moderate, severe) No pain 5. CAUSE: "What do you think is causing the ear congestion?" allergies 6. URI: "Do you have a runny nose or cough?" no 7. NASAL ALLERGIES: "Are there symptoms of hay fever, such as sneezing or a clear nasal discharge?" Some sneezing 8. : "Is there any chance you are ?" "When was your last menstrual period?" N/A Protocols used: Ear - [id number] documented in this [facility]ST[facility] [id number] Telephone encounter Note* Telephone Encounter - Martir Keene MD - 09/13/2023 2:36 PM EDT As we discussed if this does not work she would need to go back to allergy or ENT for possible allergy shots or other management. In regards to the labs, they are stable when compared with previous. [id number] Telephone encounter Note* Telephone Encounter - Jonelle Fernandez RN - 09/13/2023 1:56 PM EDT S: Patient spoke with [facility] nurse regarding continued issue with right ear - ear popping and cracking. B: Onset of symptoms/concern over 6 months now. A: Pt states she was seen in the office on 08-23-23 for issues with her right ear popping and cracking. Told that it was allergies and she should try Natacha and Flonase and see what happens. Pt triedAllegra and is using Claritin now; she is out of Flonase now. Still having issues with popping and cracking in right ear only. She was told to call back and let him know how she is doing. Wants to know what else she can try and will need a refill on Flonase or if he wants her to try something else.Denies fever, cough, congestion, ear pain, ear drainage, sore throat. Also pt wants to know what DrBishop thinks about her blood work results from 08-27-23. R: Will send message to office to review and call pt at [phone]. Pharmacy is current in chart.Pt to call back if any further ques or concerns. Reason for Disposition Ear congestion present > 48 hours Answer Assessment - Initial Assessment Questions 1. LOCATION: "Which ear is involved?" Right ear 2. SENSATION: "Describe how the ear feels." (e.g. stuffy, full, plugged)." Makes popping and cracking noises 3. ONSET: "When did the ear symptoms start?" Off and on for 6 months 4. PAIN: "Do you also have an earache?" If Yes, ask: "How bad is it?" (Scale 1- 10; or mild, moderate, severe) No pain 5. CAUSE: "What do you think is causing the ear congestion?" allergies 6. URI: "Do you have a runny nose or cough?" no 7. NASAL ALLERGIES: "Are there symptoms of hay fever, such as sneezing or a clear nasal discharge?" Some sneezing 8. : "Is there any chance you are ?" "When was your last menstrual period?" N/A Protocols used: Ear - [id number] [id number] History of Present illness Narrative* Martir Keene MD - 08/23/2023 1:00 PM EDT Images from the original note were not included. [facility] [address] [facility] [id number] Visit Type: Follow Up Appointment PCP: Martir Keene MD Reason for Visit: Ear Problem (Patient states right ear, popping, crackling, patient states has some nasal congestion, going on since May) Assessment and Plan Chantal was seen today for ear problem. Diagnoses and all orders for this visit: Tinnitus of both ears Diabetic on diet only (CMS/HCC) (HCC) - CBC; Future - Comprehensive metabolic panel; Future - Lipid panel; Future - Hemoglobin A1c; Future - Microalbumin / creatinine urine ratio; Future - CBC - Comprehensive metabolic panel - Lipid panel - Hemoglobin A1c - Microalbumin / creatinine urine ratio Discussed that the ringing of her ears is best treated with [id number] medications such as Flonase, antihistamines like Zyrtec and Claritin, and occasionally will need also the use of Singulair. She is not currently doing any of this. Did advise allergy shots may also be beneficial. Of note labs were ordered for a future visit at this visit. No follow-ups on file. Subjective HPI Review of Systems Constitutional: Negative for activity change, appetite change and fatigue. HENT: Positive for tinnitus. Negative for congestion, postnasal drip, rhinorrhea and sore throat. Respiratory: Negative for cough and shortness of breath. Cardiovascular: Negative for chest pain. Gastrointestinal: Negative for abdominal pain, constipation, diarrhea, nausea and vomiting. Skin: Negative for rash. All other systems reviewed and are negative. The following portions of the chart were reviewed this encounter and updated as appropriate: Current Outpatient Medications: albuterol (ProAir HFA) 108 (90 Base) MCG/ACT inhaler, Inhale 2 puffs every 4 hours as needed for wheezing or shortness of breath., Disp: 8.5 g, Rfl: 0 ALPRAZolam (Xanax) 0.25 MG tablet, take 1 tablet by mouth NIGHTLY NEEDED FOR SLEEP OR ANXIETY FOR UP TO 90 DAYS, Disp: 30 tablet, Rfl: 0 budesonide-formoterol (Symbicort) 160-4.5 MCG/ACT inhaler, Inhale 2 puffs in the morning and 2 puffs in the evening. Rinse mouth with water after use to reduce aftertaste and incidence of candidiasis. Do not swallow.., Disp: 3 each, Rfl: 3 cyanocobalamin (Vitamin B-12) 100 MCG tablet, Take 50 mcg by mouth in the morning., Disp: , Rfl: Fluticasone Furoate-Vilanterol (BREO ELLIPTA IN), inhale 1 puff by mouth INTO THE LUNGS daily Inhalation for 30, Disp: , Rfl: gabapentin (Neurontin) 100 MG capsule, Take 300 mg by mouth 2 times daily., Disp: , Rfl: lansoprazole (Prevacid) [address] capsule, Take 30 mg by mouth in the morning., Disp: , Rfl: losartan (Cozaar) 50 MG tablet, Nightly., Disp: , Rfl: pantoprazole (ProtoNix) 40 MG EC tablet, Take 40 mg by mouth in the morning., Disp: , Rfl: sertraline (Zoloft) 100 MG tablet, take 2 tablets by mouth once daily, Disp: 180 tablet, Rfl: 3 simvastatin (Zocor) 40 MG tablet, take 1 tablet by mouth once daily, Disp: 90 tablet, Rfl: 3 tiZANidine (Zanaflex) 4 MG tablet, Take 4 mg by mouth 3 times daily as needed., Disp: , Rfl: traMADol (Ultram) 50 MG tablet, take 1 tablet by mouth once daily if needed for pain, Disp: , Rfl: Turmeric 500 MG capsule, Take by mouth every morning., Disp: , Rfl: naloxone (Narcan) 4 mg/0.1 mL nasal spray, instill 1 spray in 1 nostril if needed for OPIOID OVERDOSE may re... (REFER TO PRESCRIPTION NOTES)., Disp: , Rfl: Premarin vaginal cream, insert 1 gram vaginally 2 TO 3 NIGHTS A WEEK, Disp: , Rfl: Objective BP 119/78 (BP Location: Right arm, Patient Position: Sitting, BP Cuff Size: Large adult) Pulse 84 Ht 5' 7" (1.702 m) Wt 153 lb (69.4 kg) SpO2 97% BMI 23.96 kg/m Physical Exam Vitals and nursing note reviewed. Constitutional: Appearance: Normal appearance. HENT: Head: Normocephalic and atraumatic. Right Ear: Ear canal and external ear normal. A middle ear effusion is present. Left Ear: Ear canal and external ear normal. A middle ear effusion is present. Nose: Nose normal. Mouth/Throat: Mouth: Mucous membranes are moist. Pharynx: Oropharynx is clear. Eyes: Extraocular Movements: Extraocular movements intact. Conjunctiva/sclera: Conjunctivae normal. Pupils: Pupils are equal, round, and reactive to light. Cardiovascular: Rate and Rhythm: Normal rate and regular rhythm. Pulses: Normal pulses. Heart sounds: Normal heart sounds. No murmur heard. Pulmonary: Effort: Pulmonary effort is normal. Breath sounds: Normal breath sounds. No wheezing. Abdominal: General: Abdomen is flat. Bowel sounds are normal. Palpations: Abdomen is soft. Tenderness: There is no abdominal tenderness. Musculoskeletal: General: Normal range of motion. Cervical back: Normal range of motion and neck supple. Skin: General: Skin is warm and dry. Capillary Refill: Capillary refill takes less than 2 seconds. Neurological: General: No focal deficit present. Mental Status: She is alert. Mental status is at baseline. Data Reviewed Labs: Imaging/Testing: Chart Clean Up: Medications Discontinued During This Encounter Medication Reason Fluticasone Furoate-Vilanterol 100-25 MCG/ACT aerosol powder Duplicate order Martir Keene MD 08/25/2023 11:45 PM documented in this [facility]03-08-2024 History of Present illness Narrative* Jun Jimenez MD - 08/09/2023 1:45 PM EST [facility] [address] [place] [id number] Dept: [phone] Dept Chantal Romerotcher 1950 [id number] 08/09/2023 HISTORY OF PRESENT ILLNESS: Chantal is here for her 1 year(s) postoperative visit s/p right ankle arthroscopic debridement of talar OCD,#2 repair right peroneus brevis tendon tear Chantal reports that her pain mild along the front of the ankle and up to side. She reports that her nerve pain has decreased substantially. She just want to make sure that nothing was wrong with the ankle and that she could continue to be as active as possible. Review of Systems PAST MEDICAL HISTORY: Past Medical History: Diagnosis Date Acute bacterial sinusitis 09/07/2018 Anxiety CAD (coronary artery disease) COPD (chronic obstructive pulmonary disease) ([facility]) Depression Diastolic dysfunction, left ventricle Diverticulosis Fibromyalgia GERD (gastroesophageal reflux disease) Hyperlipidemia Irritable bowel syndrome Osteochondral lesion of talar dome SCHEDULED FOR THE SURGERY ON 08/16/22 AT [facility] (postoperative nausea and vomiting) Prediabetes controlled by diet Rheumatoid arthritis (HCC) Allergies Allergen Reactions Lisinopril Other reaction(s): AOF Propranolol Hcl Other reaction(s): Other (See Comments) [place] like I was floating PHYSICAL EXAM: This is an age appropriate appearing female who is alert and oriented x 3. The patient appears wellnourished. The patient is able to verbalize normally and seems to have a good understanding of her situation. Normocephalic and atraumatic Respiratory: No shortness of breath The right lower extremity is examined. Skin: warm and dry Lymphatic: No swelling present Vascular: Capillary refill in the foot/toes is brisk Neurologic: Sensation is intact except over the surgical incision site(s) Musculoskeletal: The calf is nontender to palpation. The patient is able to actively move the ankle/foot/toes The lateral ankle incision is healed and benign Tenderness: Mildly tender to palpation along the anterior ankle joint line. The ankle is stable on anterior drawer exam. The peroneals are stable on exam. Mild tenderness over the peroneal tendons. Gait: Near normal ambulation RADIOGRAPHIC INTERPRETATION: 3 weight bearing views of the right ankle were obtained and the following is my interpretation of the findings present of the X-rays: The ankle mortise and syndesmosis are anatomically aligned. Medial talar dome osteochondral lesion is noted but unchanged compared to earlier x-rays. REVIEW OF RELATED PREVIOUS DOCUMENTATION: No documents related to the current problem(s) were reviewed or no documents were available for review. LABORATORY RESULT INTERPRETATION: No labs were reviewed/No labs available for review DIAGNOSIS: Diagnosis Plan 1. Tear of peroneal tendon, right, sequela 2. Osteochondral defect of ankle MEDICAL DECISION MAKING: I had a discussion with Chantal to make sure she has a good understanding of the diagnoses/issues that I think are present today and understands the plan moving forward. I explained to Lovely that based on her exam and x-rays I think that her mild amount of discomfort is normal. We talked about the fact she will likely always have some mild stiffness and discomfort in the ankle given her previous injury. From my standpoint she can be as active as her symptoms allow. I will see her back on an as-needed basis. Follow up if symptoms worsen or fail to improve. Electronically signed by Jun Jimenez MD [facility] Department of Orthopedic surgery 08/09/2023 2:04 PM Voice recognition was used for portions of this note and although it was reviewed prior to signing some incorrect words or phrases could be present. documented in this [facility]02-29-2024 History of Present illness Narrative* Martir Keene MD - 08/01/2023 10:20 AM EST Images from the original note were not included. [facility] [address] [facility] [phone] Visit Type: Follow Up Appointment PCP: Martir Keene MD Reason for Visit: Other (Patient states had covid in June, got better, expose to the flu, did not know at the time, patient and got it on Jul 23, starting to get better not complete better, achy, nausea, dizziness, tiredness, little bit of chills, denies fever, has been sick since the of this month) Assessment and Plan Chantal was seen today for other. Diagnoses and all orders for this visit: COPD with acute exacerbation (HCC) - predniSONE (Deltasone) 20 MG tablet; Take 2 tablets (40 mg) by mouth daily for 5 days. - azithromycin (Zithromax) 250 MG tablet; Take 2 tablets (500 mg) by mouth daily for 1 day, THEN 1 tablet (250 mg) daily for 4 days. - albuterol (ProAir HFA) 108 (90 Base) MCG/ACT inhaler; Inhale 2 puffs every 4 hours as needed for wheezing or shortness of breath. Nausea - ondansetron ODT (Zofran-ODT) 4 MG disintegrating tablet; Take 1 tablet (4 mg) by mouth every 8 hours as needed for nausea or vomiting for up to 7 days. Will treat for a COPD exacerbation based on reported symptoms. Due to the nausea will also refill Zofran. Advised that time is what while primarily get the whole illness better, as she had COVID and Flu in rapid succession, so will likely take longer to get better, particularly due to her COPD. Follow up if symptoms worsen or fail to improve. Subjective URI Associated symptoms include congestion, coughing, headaches, nausea, rhinorrhea and wheezing. Pertinent negatives include no abdominal pain, chest pain, diarrhea, rash, sinus pain, sore throat or vomiting. Review of Systems Constitutional: Positive for chills and fatigue. Negative for activity change, appetite change and fever. HENT: Positive for congestion, postnasal drip and rhinorrhea. Negative for sinus pressure, sinus pain and sore throat. Eyes: Negative for redness and itching. Respiratory: Positive for cough and wheezing. Negative for chest tightness and shortness of breath. Cardiovascular: Negative for chest pain. Gastrointestinal: Positive for nausea. Negative for abdominal pain, constipation, diarrhea and vomiting. Musculoskeletal: Positive for arthralgias. Skin: Negative for rash. Neurological: Positive for dizziness, weakness and headaches. The following portions of the chart were reviewed this encounter and updated as appropriate: Tobacco Allergies Meds Problems Med Hx Surg Hx Fam Hx Current Outpatient Medications: ALPRAZolam (Xanax) 0.25 MG tablet, take 1 tablet by mouth NIGHTLY NEEDED FOR SLEEP OR ANXIETY FOR UP TO 90 DAYS, Disp: 30 tablet, Rfl: 0 cyanocobalamin (Vitamin B-12) 100 MCG tablet, Take 50 mcg by mouth in the morning., Disp: , Rfl: Fluticasone Furoate-Vilanterol 100-25 MCG/ACT aerosol powder , Inhale every morning (before breakfast)., Disp: , Rfl: gabapentin (Neurontin) 100 MG capsule, Take 300 mg by mouth 2 times daily., Disp: , Rfl: lansoprazole (Prevacid) [address] capsule, Take 30 mg by mouth in the morning., Disp: , Rfl: losartan (Cozaar) 50 MG tablet, Nightly., Disp: , Rfl: naloxone (Narcan) 4 mg/0.1 mL nasal spray, instill 1 spray in 1 nostril if needed for OPIOID OVERDOSE may re... (REFER TO PRESCRIPTION NOTES)., Disp: , Rfl: pantoprazole (ProtoNix) 40 MG EC tablet, Take 40 mg by mouth in the morning., Disp: , Rfl: Premarin vaginal cream, insert 1 gram vaginally 2 TO 3 NIGHTS A WEEK, Disp: , Rfl: sertraline (Zoloft) 100 MG tablet, take 2 tablets by mouth once daily, Disp: 180 tablet, Rfl: 3 simvastatin (Zocor) 40 MG tablet, take 1 tablet by mouth once daily, Disp: 90 tablet, Rfl: 3 tiZANidine (Zanaflex) 4 MG tablet, Take 4 mg by mouth 3 times daily as needed., Disp: , Rfl: traMADol (Ultram) 50 MG tablet, take 1 tablet by mouth once daily if needed for pain, Disp: , Rfl: Turmeric 500 MG capsule, Take by mouth every morning., Disp: , Rfl: albuterol (ProAir HFA) 108 (90 Base) MCG/ACT inhaler, Inhale 2 puffs every 4 hours as needed for wheezing or shortness of breath., Disp: 8.5 g, Rfl: 0 azithromycin (Zithromax) 250 MG tablet, Take 2 tablets (500 mg) by mouth daily for 1 day, THEN 1 tablet (250 mg) daily for 4 days., Disp: 6 tablet, Rfl: 0 budesonide-formoterol (Symbicort) 160-4.5 MCG/ACT inhaler, Inhale 2 puffs in the morning and 2 puffs in the evening. Rinse mouth with water after use to reduce aftertaste and incidence of candidiasis. Do not swallow.., Disp: 3 each, Rfl: 3 ondansetron ODT (Zofran-ODT) 4 MG disintegrating tablet, Take 1 tablet (4 mg) by mouth every 8 hours as needed for nausea or vomiting for up to 7 days., Disp: 20 tablet, Rfl: 0 predniSONE (Deltasone) 20 MG tablet, Take 2 tablets (40 mg) by mouth daily for 5 days., Disp: 10 tablet, Rfl: 0 Objective BP 126/89 (BP Location: Right arm, Patient Position: Sitting, BP Cuff Size: Large adult) Pulse 70 Ht 5' 7" (1.702 m) Wt 155 lb (70.3 kg) SpO2 94% BMI 24.28 kg/m Physical Exam Vitals and nursing note reviewed. Constitutional: Appearance: Normal appearance. HENT: Head: Normocephalic and atraumatic. Right Ear: Tympanic membrane, ear canal and external ear normal. Left Ear: Tympanic membrane, ear canal and external ear normal. Nose: Congestion and rhinorrhea present. Mouth/Throat: Mouth: Mucous membranes are moist. Pharynx: No oropharyngeal exudate. Eyes: General: Right eye: No discharge. Left eye: No discharge. Extraocular Movements: Extraocular movements intact. Conjunctiva/sclera: Conjunctivae normal. Pupils: Pupils are equal, round, and reactive to light. Cardiovascular: Rate and Rhythm: Normal rate and regular rhythm. Pulses: Normal pulses. Heart sounds: Normal heart sounds. No murmur heard. Pulmonary: Effort: Pulmonary effort is normal. No respiratory distress. Breath sounds: Normal breath sounds. No wheezing or rhonchi. Abdominal: General: Abdomen is flat. Bowel sounds are normal. Palpations: Abdomen is soft. Tenderness: There is no abdominal tenderness. Musculoskeletal: Cervical back: Normal range of motion. Lymphadenopathy: Cervical: Cervical adenopathy present. Skin: General: Skin is warm and dry. Capillary Refill: Capillary refill takes less than 2 seconds. Neurological: Mental Status: She is alert. Data Reviewed Labs: Imaging/Testing: Chart Clean Up: Medications Discontinued During This Encounter Medication Reason ondansetron ODT (Zofran-ODT) 8 MG disintegrating tablet Martir Keene MD 08/04/2023 12:04 AM documented in this [facility]01-29-2024 History of Present illness Narrative* Citlali Saunders DO - 07/01/2023 1:20 PM EST Images from the original note were not included. Patient was identified and seen today via Telehealth by agreement and consent. I used the followingTelehealth technology: Audio and video capabilities. Patient location: Patient Location: Home. This patient encounter is appropriate and reasonable under the circumstances: too sick to leave home . The patient has been advised of the potential risks and limitations of this mode of treatment (including but not limited to the absence of in-person examination) and has agreed to be treated in a remote fashion in spite of them. Any and all of the patient's/patient's family's questions on this issue have been answered and I have made no promises or guarantees to the patient. The patient has alsobeen advised to contact this office for worsening conditions or problems, and seek emergency medical treatment and/or call 911 if the patient deems either necessary. The patient stated that they are currently in the state of [place]. If the patient is a minor, permission has been obtained by the parent or guardian for the patient to receive medical care at this visit. [facility] [address] [facility] [phone] Visit Type: MyChart Video Visit PCP: Martir Keene MD Reason for Visit: covid (Started on Saturday today is day 4 symptoms are headache, body ache, fatigue, diarrhea , dry cough. ) Assessment and Plan Chantal was seen today for covid. Diagnoses and all orders for this visit: COVID-19 virus infection Other orders - Nirmatrelvir&Ritonavir 300/100 (Paxlovid, 300/100,) 20 x 150 MG & 10 x 100MG tablet therapy pack; Take 3 tablets by mouth in the morning and 3 tablets in the evening. Do all this for 5 days. - she meets criteria for antiviral treatment with paxlovid. Discussed SE and drug interactions. Anjel need to hold simvastatin while taking and for 3 days afterwards. Hold alprazolam (which she rarely uses). Discussed expected outcome of treatment and to monitor symptoms closely bridger with her COPD. Follow up if symptoms worsen or fail to improve. Reduce use or dose of alprazolam. Ritonavir may reduce potency of tramadol. Hold simvastatin. Normal renal function 07/2022. There are no Patient Instructions on file for this visit. Subjective HPI COVID positive - had COVID 2 years ago - breathing is ok - no way of monitoring her O2 - started getting sick on Saturday night - significantly worse on Saturday morning - body aches, sore throat, headache, sinus congestion, fatigue, slight cough PMHx: T2DM, COPD, CAD Review of Systems Pertinent ROS noted in the HPI and all other systems are negative. Current Outpatient Medications Medication Sig Dispense Refill ALPRAZolam (Xanax) 0.25 MG tablet take 1 tablet by mouth NIGHTLY NEEDED FOR SLEEP OR ANXIETY FORUP TO 90 DAYS 30 tablet 0 budesonide-formoterol (Symbicort) 160-4.5 MCG/ACT inhaler Inhale 2 puffs in the morning and 2 puffsin the evening. Rinse mouth with water after use to reduce aftertaste and incidence of candidiasis.Do not swallow.. 3 each 3 cyanocobalamin (Vitamin B-12) 100 MCG tablet Take 50 mcg by mouth in the morning. gabapentin (Neurontin) 100 MG capsule Take 300 mg by mouth 2 times daily. lansoprazole (Prevacid) [address] capsule Take 30 mg by mouth in the morning. losartan (Cozaar) 50 MG tablet Nightly. ondansetron ODT (Zofran-ODT) 8 MG disintegrating tablet DISSOLVE 1 TABLET ON TONGUE 3 TIMES DAILY NEEDED FOR NAUSEA OR VOMITING pantoprazole (ProtoNix) 40 MG EC tablet Take 40 mg by mouth in the morning. sertraline (Zoloft) 100 MG tablet take 2 tablets by mouth once daily 180 tablet 3 simvastatin (Zocor) 40 MG tablet take 1 tablet by mouth once daily 90 tablet 3 tiZANidine (Zanaflex) 4 MG tablet Take 4 mg by mouth 3 times daily as needed. traMADol (Ultram) 50 MG tablet take 1 tablet by mouth once daily if needed for pain Fluticasone Furoate-Vilanterol 100-25 MCG/ACT aerosol powder Inhale every morning (before breakfast). naloxone (Narcan) 4 mg/0.1 mL nasal spray instill 1 spray in 1 nostril if needed for OPIOID OVERDOSE may re... (REFER TO PRESCRIPTION NOTES). Nirmatrelvir&Ritonavir 300/100 (Paxlovid, 300/100,) 20 x 150 MG & 10 x 100MG tablet therapypack Take 3 tablets by mouth in the morning and 3 tablets in the evening. Do all this for 5 days. 30 tablet 0 Premarin vaginal cream insert 1 gram vaginally 2 TO 3 NIGHTS A WEEK Turmeric 500 MG capsule Take by mouth every morning. No current facility-administered medications for this visit. Patient Active Problem List Diagnosis Date Noted History of non-ST elevation myocardial infarction (NSTEMI) 12/05/2021 Hyperlipidemia 05/18/2021 IBS (irritable bowel syndrome) 05/18/2021 Atherosclerosis of coronary artery 05/18/2021 Arthritis of right ankle 11/16/2020 Arthritis of left ankle 11/16/2020 Anxiety 05/21/2020 COPD, moderate (HCC) 05/21/2020 Arthritis of both acromioclavicular joints 03/29/2020 Tendonitis of both rotator cuffs 03/29/2020 Cervical myelopathy (HCC) 09/10/2019 Gastroesophageal reflux disease 06/16/2019 Diabetic on diet only ([facility]/HCC) (HCC) 06/16/2019 Scalp psoriasis 06/16/2019 Loss of hair 06/16/2019 Generalized osteoarthritis 06/16/2019 Osteoarthritis of right AC (acromioclavicular) joint 03/05/2018 SYLVIE (generalized anxiety disorder) 04/02/2017 Objective There were no vitals taken for this visit. Physical Exam N/a Medications Discontinued During This Encounter Medication Reason methylPREDNISolone (Medrol Dospak) 4 MG tablets Citlali Saunders DO 07/01/2023 3:48 PM documented in this [facility]ST[facility] [id number] Telephone encounter Note* Telephone Encounter - Monalisa Young RN - 07/01/2023 11:14 AM EST S: Pt calling [facility] for Covid B: 06/28/23 A: Pt reports she tested + for Covid yesterday. Reports sx of cough, rhinorhea, watery diarrhea x3 yesterday/none today, mild nausea, fatigue, sore throat, body aches/chills. Denies fever, CP, or shortness of breath. Pt drinking a lot of water. Pt w/ hx of COPD. R: Pt agreeable to VV. Attempted to assist pt to login to and access appt. Pt was unsuccessful. Spoke to [employer] to inquire if audio visit was permissible w/ Dr Saunders and states pt may be scheduled as visit w/ "audio only" in notes. Pt informed & agreeable. Insurance verified. Reason for Disposition [1] HIGH RISK for severe COVID complications (e.g., weak immune system, age > 64 years, obesity with BMI of 30 or higher, , chronic lung disease or other chronic medical condition) AND [2]COVID symptoms (e.g., cough, fever) (Exceptions: Already seen by PCP and no new or worsening symptoms.) Protocols used: Coronavirus (COVID-19) Diagnosed or [id number] [id number] Miscellaneous Notes* Telephone Encounter - Monalisa Young RN - 07/01/2023 11:14 AM EST S: Pt calling [facility] for Covid B: 06/28/23 A: Pt reports she tested + for Covid yesterday. Reports sx of cough, rhinorhea, watery diarrhea x3 yesterday/none today, mild nausea, fatigue, sore throat, body aches/chills. Denies fever, CP, or shortness of breath. Pt drinking a lot of water. Pt w/ hx of COPD. R: Pt agreeable to VV. Attempted to assist pt to login to and access appt. Pt was unsuccessful. Spoke to [employer] to inquire if audio visit was permissible w/ Dr Saunders and states pt may be scheduled as visit w/ "audio only" in notes. Pt informed & agreeable. Insurance verified. Reason for Disposition [1] HIGH RISK for severe COVID complications (e.g., weak immune system, age > 64 years, obesity with BMI of 30 or higher, , chronic lung disease or other chronic medical condition) AND [2]COVID symptoms (e.g., cough, fever) (Exceptions: Already seen by PCP and no new or worsening symptoms.) Protocols used: Coronavirus (COVID-19) Diagnosed or [id number] documented in this [facility]10-13-2023 History of Present illness Narrative* Jake Frnaco MD - 03/15/2023 3:30 PM EDT Images from the original note were not included. [facility] [address] [place] [address] [place] [id number] Dept: [phone] Dept Chief Complaint Patient presents with Procedure USG Left SI Joint Injection Subjective History of Present Illness: Chantal Linares is a 72 y.o. female who is referred by Dr. Mayberry for injection of left SI joint. She rates symptoms as a 6/10 at rest and a 10/10 at worst. Imaging to date: X-ray Febuary 2022 of Left Hip Prior targeted injections: Spinal injections with Pain Management ([facility]) May 2020. First injection was helpful for a couple of months. Fall risk assessment: Completed today. Have you had 2 or more falls in the last year? No Have you had a fall with injury in the last year? No Do you feel unsteady or worried about falling? No Objective Visit Vitals BP 133/84 Pulse 85 Physical Exam: General: Alert, well appearing, no acute distress. Respiratory: Breathing comfortably on room air. No respiratory distress. Skin: Warm, dry, intact. No visible rashes or erythema overlying area of focused exam. Musculoskeletal/Neurologic: Lumbar Spine Palpation: Tender to palpation: SI joint on the left. External Notes I personally reviewed external notes from: Drs. Mayberry, Barbara, and Cindy. Labs Lab Results Component Value Date HGBA1C 5.9 06/01/2022 Lab Results Component Value Date CREATININE 0.48 (L) 07/10/2022 Imaging I have personally reviewed the images pertinent to the appointment today EMG/NCT N/A Procedure Procedure completed today, details below Informed Consent: Prior to the procedure, the patient's allergies were reviewed. The procedure site was marked. The procedure team checked for proper functioning of devices and supplies to be used for the procedure. The procedure team reviewed the relevant diagnostic tests pertinent to the procedure. The risks, benefits, alternatives, and anticipated outcomes of the procedure were discussed. Consent included possibility of bleeding, infection, increased pain, hyperglycemia, steroid flare, hypopigmentation and fat atrophy. The roles and tasks of the personnel to be involved were discussed with the patient, who wished to proceed. Procedure details: The use of direct ultrasound visualization of the needle was required to increase the patient s safety by excluding inadvertent intermuscular or intertendinous placements and minimizing bleeding and injury by avoiding osteochondral and nearby neurovascular structures. Ultrasound guidance also maximizes accurate injection placement and likely clinical benefit beyond that obtained from a landmark guided injection. This allows for increased diagnostic specificity when evaluating effectiveness of the injection. Injection site - Left sacroiliac joint. Injectate - 5 ml of 1% lidocaine used to anesthetize needle track. 1 ml betamethasone with 2 cc of 1% lidocaine. Ultrasound - Sonosite X-Porte curvilinear 5-2 MHz probe. The injection site was prepped in the usual sterile manner. Ethyl chloride mist spray was used to numb the skin. Needle advanced to target without difficulty under continuous visualization. Following negative pull back aspiration, injectate delivered without resistance. After the injection, a bandage was placed over the injection site. The patient tolerated the procedure well with no adverse effects. Post-injection instructions were reviewed with the patient and the patient voiced understanding. Images saved to patient chart. Pre-Procedure Pain Scale: 8-9/10 Post-Procedure Pain Scale: 3/10 Assessment Diagnosis Plan 1. Pain of left sacroiliac joint betamethasone acetate-betamethasone sodium phosphate (Celestone) injection 6 mg lidocaine (Xylocaine) 1 % injection 7 mL 2. Lumbar spondylosis Plan Activity: Avoid/limit aggravating factors. Post-injection education handout provided today. Medication(s): No new medications prescribed today. Test(s)/Imaging/Referral(s): Injection performed in office today. Procedural details noted above. Plan for diagnostic/therapeutic injection of right SI joint injection. Additional Intervention(s): Consider referral to Orthopedic Surgery. Consider referral to Pain Management. Follow up: Schedule follow up appointment for ultrasound guided injection. Sooner as needed. Jake Franco MD 03/15/2023 3:45 PM Please note that portions of this note may have been completed with voice recognition software. Documentation reviewed prior to signing but minor errors in welder shielded metal arc may have occurred. documented in this [facility]06-09-2023 History of Present illness Narrative* Jun Jimenez MD - 11/09/2022 1:45 PM EDT [facility] [address] [place] [id number] Dept: [phone] Dept Chantal Perla Milagros 1950 [id number] 11/09/2022 HISTORY OF PRESENT ILLNESS: Chantal is here for her 12 week(s) postoperative visit s/p repair peroneal tendon, and ankle arthroscopic debridement talar osteochondral lesion. DOS: 3.6.23 . Chantal reports that her pain has decreased since the surgery/last visit Chantal reports that her swelling has decreased since the last visit Chantal had been instructed to be weight bearing as tolerated on the right lower extremity. Chantal has been compliant with her weight bearing restrictions Chantal has been working with outpatient physical therapy and it is going well. They have only been working with her in her boot Chantal denies fevers and chills and has not had calf pain or shortness of breath In general Chantal feels that she has been doing well since the surgery Other issues or concerns that Chantal would like addressed at this visit: boot d/c?, pain and aching - burning around the incision, PT began October 08 2x weekly religiously how much longer can I take boot off for PT, boot on the knee sprain the sees for the knee Review of Systems PAST MEDICAL HISTORY: Past Medical History: Diagnosis Date Acute bacterial sinusitis 09/07/2018 Anxiety CAD (coronary artery disease) COPD (chronic obstructive pulmonary disease) ([facility]) Depression Diastolic dysfunction, left ventricle Diverticulosis Fibromyalgia GERD (gastroesophageal reflux disease) Hyperlipidemia Irritable bowel syndrome Osteochondral lesion of talar dome SCHEDULED FOR THE SURGERY ON 08/16/22 AT [facility] (postoperative nausea and vomiting) Prediabetes controlled by diet Rheumatoid arthritis ([facility]) Allergies Allergen Reactions Lisinopril Other reaction(s): AOF Propranolol Hcl Other reaction(s): Other (See Comments) [place] like I was floating PHYSICAL EXAM: This is an age appropriate appearing female who is alert and oriented x 3. The patient appears wellnourished. The patient is able to verbalize normally and seems to have a good understanding of her situation. Normocephalic and atraumatic Respiratory: No shortness of breath The right lower extremity is examined. Skin: ruborous in a dependent position Lymphatic: Minimal swelling of the ankle and hindfoot Vascular: Capillary refill in the foot/toes is brisk Neurologic: Sensation is intact except over the surgical incision site(s) Musculoskeletal: The calf is nontender to palpation. The patient is able to actively move the ankle/foot/toes The incisions are healed and benign Tenderness: no areas of tenderness on exam Gait: Near normal ambulation RADIOGRAPHIC INTERPRETATION: No xrays were obtained or reviewed REVIEW OF RELATED PREVIOUS DOCUMENTATION: No documents related to the current problem(s) were reviewed or no documents were available for review. LABORATORY RESULT INTERPRETATION: No labs were reviewed/No labs available for review DIAGNOSIS: Diagnosis Plan 1. Tear of peroneal tendon, right, sequela External referral to Physical Therapy MEDICAL DECISION MAKING: I had a discussion with Chantal to make sure she has a good understanding of the diagnoses/issues that I think are present today and understands the plan moving forward. Chantal is doing well overall. We discussed the plan moving forward. Chantal will be seen back only if she has any issues, problems or concerns. We discussed possible reasons she might need to be seen in the future and she understands she is to call if he has an issue. As long as she is doing well he can follow-up on an as needed basis. Elevation Instructions: Chantal can have the foot/ankle down in a dependent position for as long as it is comfortable and should elevate if the foot/ankle becomes uncomfortable. Shoe/Boot Instructions: Chantla can now use a regular shoe. I want Chantal to start transitioning from her aircast boot to a good supportive shoe. I want Chantal to start by trying to walk in their shoe for one hour today and increase her shoe wear by one hour per day until she is able to spend a whole day in the shoe without pain. I instructed Chantal to put the aircast boot back on if she starts to have increasing pain or swelling that is uncomfortable. I want Chantal to start with a good stable shoe that will allow for swelling if present. If sheis having trouble making the transition from the aircast boot to a shoe over the next few weeks then I want Chantal to call me. Chantal was instructed to start wearing her lace up brace that she had been given at a previous appointment. We discussed she should wear it for the next 4- 6 weeks and can discontinue using it once she feels comfortable. Weight Bearing Instructions: Chantal was instructed to be weight bearing as tolerated on the right lower extremity in her regular shoe with the lace-up ankle brace. If Chantal has any problems maintaining this weight bearing status she was instructed to call me so that appropriate instructions can be given. She was given a new order for physical therapy specifying they can work with her in a regular shoe Medications: We discussed that for the burning she is having in her ankle she can try her voltaren cream that she already has, but if she feels it is not effective she was instructed to call the office and we will order a medicated compound cream. Xray at next visit: Not applicable Follow up if symptoms worsen or fail to improve. Electronically signed by Jun Jimenez MD [facility] Department of Orthopedic surgery 11/09/2022 4:13 PM Voice recognition was used for portions of this note and although it was reviewed prior to signing some incorrect words or phrases could be present. documented in this [facility]2023 History of Present illness Narrative* Jian Manzanares MD - 10/09/2022 11:30 AM EDT [facility] [address] [facility] [phone] Dept: [phone] Dept Chantal Minda Linares 1950 [id number] 10/09/2022 Chief Complaint Patient presents with Follow-up NTP: Right knee pain and popping HPI: Chantal is a 72 y.o. female who is here today for evaluation of her right knee. Their symptoms started 2 weeks ago. The current symptoms started after after an injury where she tried to turn to get the walker and get up off a chair and felt a pop in the right knee that has been painful ever since. The patient complains of pain with weight bearing and resting . The pain is located medial. Activities that make the pain worse include any weight bearing and walking. The patient has tried simple observation, rest/ice/elevation/activity modification, OTC NSAIDs, and bracing with minimal relief. The patient reports no previous surgery related to the injured knee. The patient is retired. Chantal is referred by Dr. Jun Jimenez. SANE score: 60 Allergies Allergen Reactions Lisinopril Other reaction(s): AOF Propranolol Hcl Other reaction(s): Other (See Comments) [place] like I was floating Current Outpatient Medications on File Prior to Visit Medication Sig Dispense Refill ALPRAZolam (Xanax) 0.25 MG tablet take 1 tablet by mouth NIGHTLY NEEDED FOR SLEEP OR ANXIETY FORUP TO 90 DAYS 30 tablet 0 cyanocobalamin (Vitamin B-12) 100 MCG tablet Take 50 mcg by mouth in the morning. Fluticasone Furoate-Vilanterol 100-25 MCG/ACT aerosol powder Inhale every morning (before breakfast). gabapentin (Neurontin) 100 MG capsule Take 100 mg by mouth in the morning and 100 mg before bedtime. lansoprazole (Prevacid) [address] capsule Take 30 mg by mouth in the morning. losartan (Cozaar) 50 MG tablet Nightly. naloxone (Narcan) 4 mg/0.1 mL nasal spray instill 1 spray in 1 nostril if needed for OPIOID OVERDOSE may re... (REFER TO PRESCRIPTION NOTES). ondansetron ODT (Zofran-ODT) 8 MG disintegrating tablet DISSOLVE 1 TABLET ON TONGUE 3 TIMES DAILY NEEDED FOR NAUSEA OR VOMITING pantoprazole (ProtoNix) 40 MG EC tablet Take 40 mg by mouth in the morning. Premarin vaginal cream insert 1 gram vaginally 2 TO 3 NIGHTS A WEEK sertraline (Zoloft) 100 MG tablet take 2 tablets by mouth once daily (Patient taking differently: every morning. take 2 tablets by mouth once daily) 180 tablet 3 simvastatin (Zocor) 40 MG tablet Take 1 tablet (40 mg) by mouth daily. 90 tablet 3 tiZANidine (Zanaflex) 4 MG tablet Take 4 mg by mouth 3 times daily as needed. traMADol (Ultram) 50 MG tablet take 1 tablet by mouth once daily if needed for pain Turmeric 500 MG capsule Take by mouth every morning. budesonide-formoterol (Symbicort) 160-4.5 MCG/ACT inhaler Inhale 2 puffs in the morning and 2 puffsin the evening. Rinse mouth with water after use to reduce aftertaste and incidence of candidiasis.Do not swallow.. (Patient not taking: Reported on 10/09/2022) 3 each 3 No current facility-administered medications on file prior to visit. Past Medical History: Diagnosis Date Acute bacterial sinusitis 09/07/2018 Anxiety CAD (coronary artery disease) COPD (chronic obstructive pulmonary disease) (HCC) Depression Diastolic dysfunction, left ventricle Diverticulosis Fibromyalgia GERD (gastroesophageal reflux disease) Hyperlipidemia Irritable bowel syndrome Osteochondral lesion of talar dome SCHEDULED FOR THE SURGERY ON 08/16/22 AT [facility] (postoperative nausea and vomiting) Prediabetes controlled by diet Rheumatoid arthritis (HCC) Past Surgical History: Procedure Laterality Date ADENOIDECTOMY ANKLE SURGERY Right 08/16/2022 Right repair peroneal tendon and ankle arthroscopic debridement talar osteochondral lesion - Dr. Jimenez APPENDECTOMY CARDIAC CATHETERIZATION 10 11 2014 NO INTERVENTION CATARACT EXTRACTION CHOLECYSTECTOMY COLON SURGERY 03 16 2013 approx; sigmoidectomy diverticulosis COLON SURGERY COLONOSCOPY 01 06 2013 colonic polyps, diverticulosis, hemorrhoids HYSTERECTOMY NECK SURGERY C5-C7 ACDF (Dr. Adam) TONSILLECTOMY TONSILLECTOMY AND ADENOIDECTOMY (HISTORICAL) TUBAL LIGATION UPPER GASTROINTESTINAL ENDOSCOPY 01 06 2013 see report Social History Socioeconomic History Marital status: Spouse name: Not on file Number of children: Not on file Years of education: Not on file Highest education level: Not on file Occupational History Not on file Tobacco Use Smoking status: Every Day Packs/day: 1.00 Types: Cigarettes Smokeless tobacco: Never Vaping Use Vaping Use: Never used Substance and Sexual Activity Alcohol use: No Drug use: No Sexual activity: Defer Comment: Other Topics Concern Not on file Social History Narrative Not on file Social Determinants of Health Financial Resource Strain: Not on file Food Insecurity: Not on file Transportation Needs: No Transportation Needs Lack of Transportation (Medical): No Lack of Transportation (Non-Medical): No Physical Activity: Not on file Stress: Not on file Social Connections: Not on file Intimate Partner Violence: Not on file Housing Stability: Unknown Unable to Pay for Housing in the Last Year: No Number of Places Lived in the Last Year: Not on file Unstable Housing in the Last Year: No Family History Problem Relation Name Age of Onset Heart attack Mother Dementia Father Rheum arthritis Father Osteoporosis Father Atrial fibrillation Father Other ([id number]) Father CHF Heart attack Sister No Known Problems Brother No Known Problems Son No Known Problems Son Cancer Maternal Grandfather Leukemia Cancer Other unknown origin--2 aunts Diabetes Other grandmother Physical Exam: Ht 5' 7" (1.702 m) Wt 162 lb (73.5 kg) BMI 25.37 kg/m MUSCULOSKELETAL: Hip Exam: Ipsilateral hip exam reveals normal and symmetric range of motion with no pain elicited with internal and external range of motion. Lumbar Exam: Full painless flexion, extension, and rotation with negative same side and contralateral straight leg raise. Right Knee: Palpation reveals tenderness over the medial joint line, lateral joint line, and medial patellar facet Non tender with palpation over the remaining bony prominences or palpable structures around the knee. Negative homans sign at the calf. Patellofemoral exam reveals moderate crepitus with patellar compression and knee ROM Inspection of the knee reveals no obvious deformity or swelling, no obvious skin lesion, erythema, or discoloration. Mild effusion. Neutral alignment. Scars include none. ROM: RIGHT LEFT Extension AROM Full PROM Same AROM Full PROM Same Flexion AROM 130 PROM Same AROM 130 PROM Same Sensation: Sensation intact over the medial and anterior thigh, medial and posterolateral calf Motor: Motor is 5/5 with knee extension, flexion. Ligamentous Examination: ACL testing reveals negative paulina with firm endpoint. Negative pivot shift. PCL testing reveals negative posterior drawer testing. MCL testing reveals negative valgus stress with firm endpoint at 0 and 30 degrees. LCL testing reveals negative varus stress with firm endpoint at 0 and 30 degrees. Special Tests (as indicated): Pain with hyperextension: negative Pain with hyperflexion: negative Kamlesh's test: No significant pain elicited with kamlesh testing Imaging: Knee Xrays: Plain films were taken today and reviewed in office. IMPRESSION: Diagnosis Plan 1. Right knee pain, unspecified chronicity General supply request: hinged right knee brace 2. Medial collateral ligament sprain of knee General supply request: hinged right knee brace Right knee pain, unspecified chronicity [M25.561] PROCEDURE: None PLAN: The patients history, exam, and imaging is consistent with acute on chronic right knee pain. She does report she has had vague stiffness and pain for years in the right knee but not bad enough to seek medical treatment. She recently underwent an ankle surgery and wearing a boot. 2 weeks ago she reached for her walker and twisted her knee and felt a pop. She reports she had mild swelling at that time. She reports overall she has not had mechanical symptoms or significant swelling but continues to have pain over her medial knee. Based on her exam and x-rays, this is likely a knee sprain versus small meniscus tear. As she is still healing from ankle surgery and her symptoms seem to be somewhat improving, I recommended conservative treatment this time. We gave her hinged knee brace for support today. She will continue with therapy and [id number] medications. I would be happy to see her back in 4 to 6 weeks to check her progress and decide on further work-up at that time. All her ques tions were answered otherwise. I discussed with Chantal the natural history, expected outcome, and risks/benefits of both operative and nonoperative management of her particular diagnosis relative to her age, activity level, previous treatment, and physical exam. Chantal had some excellent questions, all of which were answeredto her satisfaction. Chantal elected to proceed with brace and follow up. Follow-up: Chantal will followup with me in 4-6 weeks or as needed if symptoms are improving. She knows to call the office with any questions or concerns in the interim. Future Imaging: NONE Jian Manzanares MD Orthopaedic Sports Medicine [facility] Department of Orthopaedics and Sports Medicine 10/09/2022 at 12:32 PM (Please note that portions of this note may have been completed with a voice recognition program. Efforts were made to edit the dictations but occasionally words are mis-transcribed.) documented in this [facility]04-26-2023 History of Present illness Narrative* Jun Jimenez MD - 09/26/2022 2:00 PM EDT [facility] [address] [place] [id number] Dept: [phone] Dept Chantal Perla Milagros 1950 [id number] 09/26/2022 HISTORY OF PRESENT ILLNESS: Chantal is here for her 6 week(s) postoperative visit s/p Right repair peroneal tendon, and ankle arthroscopic debridement talar osteochondral lesion. DOS: 3.6.23 Chantal reports that her pain has decreased since the surgery/last visit Chantal reports that her swelling has decreased since the last visit Chantal had been instructed to be nonweight bearing on the right lower extremity. Chantal has been compliant with her weight bearing restrictions Chantal has not started therapy yet she has been doing ROM at home Chantal denies fevers and chills and has not had calf pain or shortness of breath In general Chantal feels that she has been doing well since the surgery Other issues or concerns that Chantal would like addressed at this visit: Numbness about the sole of the Right Foot started Saturday the Review of Systems PAST MEDICAL HISTORY: Past Medical History: Diagnosis Date Acute bacterial sinusitis 09/07/2018 Anxiety CAD (coronary artery disease) COPD (chronic obstructive pulmonary disease) (HCC) Depression Diastolic dysfunction, left ventricle Diverticulosis Fibromyalgia GERD (gastroesophageal reflux disease) Hyperlipidemia Irritable bowel syndrome Osteochondral lesion of talar dome SCHEDULED FOR THE SURGERY ON 08/16/22 AT [facility] (postoperative nausea and vomiting) Prediabetes controlled by diet Rheumatoid arthritis ([facility]) Allergies Allergen Reactions Lisinopril Other reaction(s): AOF Propranolol Hcl Other reaction(s): Other (See Comments) [place] like I was floating PHYSICAL EXAM: This is an age appropriate appearing female who is alert and oriented x 3. The patient appears wellnourished. The patient is able to verbalize normally and seems to have a good understanding of her situation. Normocephalic and atraumatic Respiratory: No shortness of breath The right lower extremity is examined. Skin: ruborous in a dependent position Lymphatic: Moderate swelling of the ankle Vascular: Capillary refill in the foot/toes is brisk Neurologic: Sensation is intact except over the surgical incision site(s) Musculoskeletal: The calf is nontender to palpation. The patient is able to actively move the ankle/foot/toes The lateral ankle incision is healed and benign Tenderness: no areas of tenderness on exam Gait: Gait not evaluated RADIOGRAPHIC INTERPRETATION: No xrays were obtained or reviewed REVIEW OF RELATED PREVIOUS DOCUMENTATION: No documents related to the current problem(s) were reviewed or no documents were available for review. LABORATORY RESULT INTERPRETATION: No labs were reviewed/No labs available for review DIAGNOSIS: Diagnosis Plan 1. Tear of peroneal tendon, right, sequela External referral to Physical Therapy MEDICAL DECISION MAKING: I had a discussion with Chantal to make sure she has a good understanding of the diagnoses/issues that I think are present today and understands the plan moving forward. I want to see Chantal back in 6 weeks. She can begin to put weight on the Right lower extremity inthe boot gradually progressing to WBAT over the next 6 weeks. Chantal can continue to remove her boot for sleep, for bathing, anytime she is sitting or laying down and for ROM exercises which were discussed and demonstrated today. Anytime she is up moving around she needs to have the boot on for weightbearing activities. Chantal and I discussed physical therapy and agreed that she will start outpatient therapy following today's visit. Chantal was given a referral to physical therapy today. I explained that if therapy is causing anyproblems then Chantal needs to discuss it with her therapist and if problems persist then she needs to call me. I explained that I have recommended therapy 2 times a week for 6 weeks. Physical therapy can work with patient in a regular shoe during appointments when comfortable If Chantal has any questions or concerns regarding her foot/ankle she was instructed to call me 24/12. Chantal was comfortable with the plan. Follow up in about 6 weeks (around 11/07/2022). Electronically signed by Jun Jimenez MD [facility] Department of Orthopedic surgery 09/26/2022 4:02 PM Voice recognition was used for portions of this note and although it was reviewed prior to signing some incorrect words or phrases could be present. documented in this [facility]04-26-2023 Instructions* Patient Instructions* Wil Melendez MA - 09/26/2022 2:00 PM EDT OK for Weight bearing in boot. Begin partial weight bearing with assistance of crutches or walker, proceed to unassisted walking as comfort allows. documented in this [facility]03-16-2023 Note* Perioperative Nursing Note - Love Guy RN - 08/16/2022 3:50 PM EDT Pt and family verbalized understanding of recovery instructions, pt verbalized a readiness to be discharged home. Pt discharged home via wheelchair accompanied by RN/volunteer. Pt has had all their belongings returned to them at discharge [place] [id number] Note* Perioperative Nursing Note - Love Guy RN - 08/16/2022 3:50 PM EDT Pt and family verbalized understanding of recovery instructions, pt verbalized a readiness to be discharged home. Pt discharged home via wheelchair accompanied by RN/volunteer. Pt has had all their belongings returned to them [id number] Miscellaneous Notes* Perioperative Nursing Note - Love Guy RN - 08/16/2022 3:50 PM EDT Pt and family verbalized understanding of recovery instructions, pt verbalized a readiness to be discharged home. Pt discharged home via wheelchair accompanied by RN/volunteer. Pt has had all their belongings returned to them at discharge * Op Note - Jun Jimenez MD - 08/16/2022 11:58 AM EDT Pre-operative Diagnosis: #1 Right ankle talar osteochondral lesion and peroneal tendon tear Post-operative Diagnosis: Same Procedure: Right ankle arthroscopic debridement of talar OCD,#2 repair right peroneus brevis tendontear Components used: Arthrex Anesthesia: General Surgeon: Barbara Assistants: Yovanny Trujillo Estimated Blood Loss: Minimal Complications: None Specimens: No Medications: Ancef 2 g IV and TXA 1 g IV Operative findings: Arthroscopy of the Right ankle revealed a medial dome talar lesion which measured 1 cm from anterior to posterior by 4 mm medial to lateral. An arthroscopic debridement of the talar OCD was performed. In addition a peroneus brevis tendon tear was present. The peroneus brevis tendon tear was approximately 5 cm in length. The tear was repaired. Peroneus longus was intact. History of present illness: Chantal is a 72 y.o. with ongoing right ankle pain despite adequate nonsurgical treatment. A preoperative MRI showed a medial talar dome osteochondral lesion and a peroneus brevis tendon tear. Despite the risks of surgery she consented to proceed. Operative report: I met with Chantal in the preoperative area prior to the procedure and discussed the surgical planonce again and answered all of her questions related to the procedure and the expected post-operative course. The risks of surgery were discussed including but not limited to the risks of medicationsgiven for surgery, the risk of blood loss during and after surgery that can lead to the need for blood products in certain situations, infection, damage to normal structures that can lead to intermediate designer problems of pain or dysfunction, wound healing complications, and late or chronic pain as a resultof the surgical intervention. In addition potentially life threatening complications that can occurat the time of surgery and after surgery were discussed including but not limited to deep vein thrombosis, pulmonary embolism, myocardial infarction, stroke and . I initialed her Right lower extremity and signed her consent form. Chantal was then brought to the operating room and placed in the supine position on the Operating Room table. Care was taken to identify and pad all bony prominences. A general anesthetic was then given by the anesthesia staff and an endotracheal tube was placed by the anesthesia staff. At all times during the operative procedure the patient's head neck and airwaywere protected by the anesthesia staff. A tourniquet was applied to the proximal thigh over cast padding. Total tourniquet time was less than 1 hour. The Right lower extremity was then prepped and draped in the usual orthopedic sterile fashion. A surgical timeout was then performed with the patient's identification, the procedure to be performed being reviewed with the consent form, verification that the patient had received preoperative antibiotics, and verification of the correct surgical side. Everyone in the operating room stopped what they were doing in order to participate in the timeout. This timeout was performed by myself, the circulating room nurse and the anesthesia staff. The patient's ASA was verified by the nurse boarding specialist and the anesthesia staff. Fire risk was assessed. The non-invasive ankle distractor was then attached sterilely to the OR table and then was applied to the Right foot with the distractor straps. Distraction was then applied to the ankle joint. Totaldistraction time was less than one hour. The medial sided incision for the anterior medial portal was established first. This was done by first placing an 18-gauge needle midway between the medial malleolus and anterior tib tendon at the level of the ankle joint line. This 18- gauge needle was advanced with care taken not to damage the intra-articular cartilage. Once the needle was placed within the correct space sterile saline was injected through the syringe into the ankle joint with good back flow being established. This backflow indicated that the needle was within the ankle joint itself. The needle was then removed and a 15 blade scalpel was used to make a small incision for the anterior medial portal. After the skin was incised the subcutaneous tissues were divided bluntly using a small hemostat until the ankle joint capsule was encountered. The hemostat was then used to enter the anteromedial joint capsule. A 3 mm arthroscope was then placed within the ankle joint. Initial diagnostic arthroscopy was performed through this anterior medial incision site. The scope was then placed such that the anterior lateral of the ankle joint was arthroscopically visualized. In similar fashion and an 18-gauge needle was placed through an anterior lateral point at the joint line level with care taken to stay lateral to the superficial peroneal nerve branches. The needle was advanced until it was well visualized within the anklejoint. Once the portal site was established, the needle was removed and a 15 blade scalpel was usedto incise the skin and then a small straight hemostat was used to bluntly dissect through the subcutaneous tissues to the joint capsule level. Blunt dissection with the hemostat was performed in order to avoid injury to branches of the superficial peroneal nerve. The hemostat was then used to enterthe ankle joint capsule. Further diagnostic arthroscopy was carried out with the addition of a joint probe placed through the anterolateral portal. The arthroscopic probe was used to identify the area of the osteochondral lesion. The lesion was noted over the medial portion of the dome of the talus. The cartilage was found to be delaminated fromthe underlying subchondral boneOnce the osteochondral lesion was identified debridement was carriedout with a combination of curettes and a shaver. Once the entire lesion was debrided of the abnormal overlying articular cartilage the subchondral plate was assessed. The size of the lesion was measured using the intra-articular probe to ensure that the complete lesion was identified as compared topreoperative radiographic imaging. Once this was verified a Putnam pick was utilized to create multiple microfractures through the subchondral plate. Once microfracture was complete the flow was turned off and the tourniquet was released to assess bleeding from each microfracture site. Those sitesthat did not bleed were deepened until bleeding occurred. Care was taken during the debridement to maintain vertical cartilaginous moya at the lesion edges. Once adequate bleeding was encountered from the microfracture sites any loose bone created during the microfracture was removed using a shaver. The joint was once again fully inspected arthroscopically for any loose cartilage or bone. Any loose cartilage or bone that was identified was removed. Once completed all arthroscopic instrumentation was removed from the ankle. The portal incision sites were then closed using 3-0 nylon suture in an interrupted horizontal mattress type stitches. The ankle was was exsanguinated using an Esmarch bandage. The posterior lateral incision was then made in line with the peroneal tendon sheath. Skin and subcutaneous tissues were divided and care wastaken to protect branches of the superficial peroneal and sural nerves. Any crossing vessels were cauterized. The peroneal tendon sheath was opened proximal to the superior peroneal retinaculum, through the superior peroneal retinaculum by releasing the superior peroneal retinaculum just posterior to its insertion on the lateral malleolus and then distally this sheath was also opened. This gave good visualization of the entire length of the peroneal tendons throughout the course from proximal to distal. The peroneus brevis was found to have a tear approximately 5 cm in length. The peroneus longus was found to be intact with no tear or abnormality. 2-0 ethibond suture was utilized to repair the peroneus brevis tear using a running baseball-stitchtechnique with care taken to bury the knots within the tendon. 1 fiber tack suture anchor was utilized to repair the superior peroneal retinaculum. The posterior-lateral lip of the distal fibular was curreted to create a bleeding bony bed where the superior retinaculum originates. 1 remote pilot operator hole was drilled for the suture anchor in the bony trough that had been created. The fiber tack suture anchor was then placed. The fiber tack suture was then placed throughthe superior retinacular tissue. The fiber tack was then tensioned pulling the retinaculum to the posterior-lateral fibula and the sutures were tied holding the repair in place. The ankle and foot were then put through their full ranges of motion and the peroneals were found to easily glide through superior peroneal retinacular portion of the tendon sheath with no tendon instability being seen. The tourniquet was then released and any active bleeding was controlled using Bovie cautery. The wound was thoroughly irrigated with copious amounts of sterile saline. The subcutaneous tissueswere then closed utilizing 2-0 Vicryl. The skin was then closed utilizing 4-0 Monocryl in a subcuticular type running stitch. Dermabond was then applied to the incision(s) and allowed to dry. Dry sterile dressings were then applied and a well-padded posterior splint with the ankle in neutral dorsiflexion was placed. Chantal was then awakened from her anesthetic, transferred to her hospital bed and taken to the recovery room in stable medical condition. Post-operative plan: Follow-up: Chantal will follow-up in 2 weeks for her first post-operative check. Suture removal: her incision(s) was/were closed with buried suture and she will not need sutures removed Shoe instructions: At the first post-operative visit Chantal will will be placed in a tall Aircast boot and will be allowed to remove the boot for sleep, for bathing and for ROM of the foot and ankle. Weight bearing: Chantal will be instructed to be nonweight bearing on the right lower extremity in the aircast boot following the 2 week visit and this will be continued until the 6 week office visit. Follow-up plan with Dr Jimenez after 2 week visit: Chantal should be scheduled to see Dr Jimenez at 6 weeks post-op for re-evaluation X-rays at 6 week follow-up: Chantal will not need x-rays post-operatively documented in this [facility]03-16-2023 Note* Op Note - Jun Jimenez MD - 08/16/2022 11:58 AM EDT Pre-operative Diagnosis: #1 Right ankle talar osteochondral lesion and peroneal tendon tear Post-operative Diagnosis: Same Procedure: Right ankle arthroscopic debridement of talar OCD,#2 repair right peroneus brevis tendontear Components used: Arthrex Anesthesia: General Surgeon: Barbara Assistants: Yovanny Trujillo Estimated Blood Loss: Minimal Complications: None Specimens: No Medications: Ancef 2 g IV and TXA 1 g IV Operative findings: Arthroscopy of the Right ankle revealed a medial dome talar lesion which measured 1 cm from anterior to posterior by 4 mm medial to lateral. An arthroscopic debridement of the talar OCD was performed. In addition a peroneus brevis tendon tear was present. The peroneus brevis tendon tear was approximately 5 cm in length. The tear was repaired. Peroneus longus was intact. History of present illness: Chantal is a 72 y.o. with ongoing right ankle pain despite adequate nonsurgical treatment. A preoperative MRI showed a medial talar dome osteochondral lesion and a peroneus brevis tendon tear. Despite the risks of surgery she consented to proceed. Operative report: I met with Chantal in the preoperative area prior to the procedure and discussed the surgical planonce again and answered all of her questions related to the procedure and the expected post-operative course. The risks of surgery were discussed including but not limited to the risks of medicationsgiven for surgery, the risk of blood loss during and after surgery that can lead to the need for blood products in certain situations, infection, damage to normal structures that can lead to intermediate designer problems of pain or dysfunction, wound healing complications, and late or chronic pain as a resultof the surgical intervention. In addition potentially life threatening complications that can occurat the time of surgery and after surgery were discussed including but not limited to deep vein thrombosis, pulmonary embolism, myocardial infarction, stroke and . I initialed her Right lower extremity and signed her consent form. Chantal was then brought to the operating room and placed in the supine position on the Operating Room table. Care was taken to identify and pad all bony prominences. A general anesthetic was then given by the anesthesia staff and an endotracheal tube was placed by the anesthesia staff. At all times during the operative procedure the patient's head neck and airwaywere protected by the anesthesia staff. A tourniquet was applied to the proximal thigh over cast padding. Total tourniquet time was less than 1 hour. The Right lower extremity was then prepped and draped in the usual orthopedic sterile fashion. A surgical timeout was then performed with the patient's identification, the procedure to be performed being reviewed with the consent form, verification that the patient had received preoperative antibiotics, and verification of the correct surgical side. Everyone in the operating room stopped what they were doing in order to participate in the timeout. This timeout was performed by myself, the circulating room nurse and the anesthesia staff. The patient's ASA was verified by the nurse boarding specialist and the anesthesia staff. Fire risk was assessed. The non-invasive ankle distractor was then attached sterilely to the OR table and then was applied to the Right foot with the distractor straps. Distraction was then applied to the ankle joint. Totaldistraction time was less than one hour. The medial sided incision for the anterior medial portal was established first. This was done by first placing an 18-gauge needle midway between the medial malleolus and anterior tib tendon at the level of the ankle joint line. This 18- gauge needle was advanced with care taken not to damage the intra-articular cartilage. Once the needle was placed within the correct space sterile saline was injected through the syringe into the ankle joint with good back flow being established. This backflow indicated that the needle was within the ankle joint itself. The needle was then removed and a 15 blade scalpel was used to make a small incision for the anterior medial portal. After the skin was incised the subcutaneous tissues were divided bluntly using a small hemostat until the ankle joint capsule was encountered. The hemostat was then used to enter the anteromedial joint capsule. A 3 mm arthroscope was then placed within the ankle joint. Initial diagnostic arthroscopy was performed through this anterior medial incision site. The scope was then placed such that the anterior lateral of the ankle joint was arthroscopically visualized. In similar fashion and an 18-gauge needle was placed through an anterior lateral point at the joint line level with care taken to stay lateral to the superficial peroneal nerve branches. The needle was advanced until it was well visualized within the anklejoint. Once the portal site was established, the needle was removed and a 15 blade scalpel was usedto incise the skin and then a small straight hemostat was used to bluntly dissect through the subcutaneous tissues to the joint capsule level. Blunt dissection with the hemostat was performed in order to avoid injury to branches of the superficial peroneal nerve. The hemostat was then used to enterthe ankle joint capsule. Further diagnostic arthroscopy was carried out with the addition of a joint probe placed through the anterolateral portal. The arthroscopic probe was used to identify the area of the osteochondral lesion. The lesion was noted over the medial portion of the dome of the talus. The cartilage was found to be delaminated fromthe underlying subchondral boneOnce the osteochondral lesion was identified debridement was carriedout with a combination of curettes and a shaver. Once the entire lesion was debrided of the abnormal overlying articular cartilage the subchondral plate was assessed. The size of the lesion was measured using the intra-articular probe to ensure that the complete lesion was identified as compared topreoperative radiographic imaging. Once this was verified a Putnam pick was utilized to create multiple microfractures through the subchondral plate. Once microfracture was complete the flow was turned off and the tourniquet was released to assess bleeding from each microfracture site. Those sitesthat did not bleed were deepened until bleeding occurred. Care was taken during the debridement to maintain vertical cartilaginous moya at the lesion edges. Once adequate bleeding was encountered from the microfracture sites any loose bone created during the microfracture was removed using a shaver. The joint was once again fully inspected arthroscopically for any loose cartilage or bone. Any loose cartilage or bone that was identified was removed. Once completed all arthroscopic instrumentation was removed from the ankle. The portal incision sites were then closed using 3-0 nylon suture in an interrupted horizontal mattress type stitches. The ankle was was exsanguinated using an Esmarch bandage. The posterior lateral incision was then made in line with the peroneal tendon sheath. Skin and subcutaneous tissues were divided and care wastaken to protect branches of the superficial peroneal and sural nerves. Any crossing vessels were cauterized. The peroneal tendon sheath was opened proximal to the superior peroneal retinaculum, through the superior peroneal retinaculum by releasing the superior peroneal retinaculum just posterior to its insertion on the lateral malleolus and then distally this sheath was also opened. This gave good visualization of the entire length of the peroneal tendons throughout the course from proximal to distal. The peroneus brevis was found to have a tear approximately 5 cm in length. The peroneus longus was found to be intact with no tear or abnormality. 2-0 ethibond suture was utilized to repair the peroneus brevis tear using a running baseball-stitchtechnique with care taken to bury the knots within the tendon. 1 fiber tack suture anchor was utilized to repair the superior peroneal retinaculum. The posterior-lateral lip of the distal fibular was curreted to create a bleeding bony bed where the superior retinaculum originates. 1 remote pilot operator hole was drilled for the suture anchor in the bony trough that had been created. The fiber tack suture anchor was then placed. The fiber tack suture was then placed throughthe superior retinacular tissue. The fiber tack was then tensioned pulling the retinaculum to the posterior-lateral fibula and the sutures were tied holding the repair in place. The ankle and foot were then put through their full ranges of motion and the peroneals were found to easily glide through superior peroneal retinacular portion of the tendon sheath with no tendon instability being seen. The tourniquet was then released and any active bleeding was controlled using Bovie cautery. The wound was thoroughly irrigated with copious amounts of sterile saline. The subcutaneous tissueswere then closed utilizing 2-0 Vicryl. The skin was then closed utilizing 4-0 Monocryl in a subcuticular type running stitch. Dermabond was then applied to the incision(s) and allowed to dry. Dry sterile dressings were then applied and a well-padded posterior splint with the ankle in neutral dorsiflexion was placed. Chantal was then awakened from her anesthetic, transferred to her hospital bed and taken to the recovery room in stable medical condition. Post-operative plan: Follow-up: Chantal will follow-up in 2 weeks for her first post-operative check. Suture removal: her incision(s) was/were closed with buried suture and she will not need sutures removed Shoe instructions: At the first post-operative visit Chantal will will be placed in a tall Aircast boot and will be allowed to remove the boot for sleep, for bathing and for ROM of the foot and ankle. Weight bearing: Chantal will be instructed to be nonweight bearing on the right lower extremity in the aircast boot following the 2 week visit and this will be continued until the 6 week office visit. Follow-up plan with Dr Jimenez after 2 week visit: Chantal should be scheduled to see Dr Jimenez at 6 weeks post-op for re-evaluation X-rays at 6 week follow-up: Chantal will not need x-rays post-operatively [id number]* Op Note - Jun Jimenez MD - 08/16/2022 11:58 AM EDT Pre-operative Diagnosis: #1 Right ankle talar osteochondral lesion and peroneal tendon tear Post-operative Diagnosis: Same Procedure: Right ankle arthroscopic debridement of talar OCD,#2 repair right peroneus brevis tendontear Components used: Arthrex Anesthesia: General Surgeon: Barbara Assistants: Yovanny Trujillo Estimated Blood Loss: Minimal Complications: None Specimens: No Medications: Ancef 2 g IV and TXA 1 g IV Operative findings: Arthroscopy of the Right ankle revealed a medial dome talar lesion which measured 1 cm from anterior to posterior by 4 mm medial to lateral. An arthroscopic debridement of the talar OCD was performed. In addition a peroneus brevis tendon tear was present. The peroneus brevis tendon tear was approximately 5 cm in length. The tear was repaired. Peroneus longus was intact. History of present illness: Chantal is a 72 y.o. with ongoing right ankle pain despite adequate nonsurgical treatment. A preoperative MRI showed a medial talar dome osteochondral lesion and a peroneus brevis tendon tear. Despite the risks of surgery she consented to proceed. Operative report: I met with Chantal in the preoperative area prior to the procedure and discussed the surgical planonce again and answered all of her questions related to the procedure and the expected post-operative course. The risks of surgery were discussed including but not limited to the risks of medicationsgiven for surgery, the risk of blood loss during and after surgery that can lead to the need for blood products in certain situations, infection, damage to normal structures that can lead to intermediate designer problems of pain or dysfunction, wound healing complications, and late or chronic pain as a resultof the surgical intervention. In addition potentially life threatening complications that can occurat the time of surgery and after surgery were discussed including but not limited to deep vein thrombosis, pulmonary embolism, myocardial infarction, stroke and . I initialed her Right lower extremity and signed her consent form. Chantal was then brought to the operating room and placed in the supine position on the Operating Room table. Care was taken to identify and pad all bony prominences. A general anesthetic was then given by the anesthesia staff and an endotracheal tube was placed by the anesthesia staff. At all times during the operative procedure the patient's head neck and airwaywere protected by the anesthesia staff. A tourniquet was applied to the proximal thigh over cast padding. Total tourniquet time was less than 1 hour. The Right lower extremity was then prepped and draped in the usual orthopedic sterile fashion. A surgical timeout was then performed with the patient's identification, the procedure to be performed being reviewed with the consent form, verification that the patient had received preoperative antibiotics, and verification of the correct surgical side. Everyone in the operating room stopped what they were doing in order to participate in the timeout. This timeout was performed by myself, the circulating room nurse and the anesthesia staff. The patient's ASA was verified by the nurse boarding specialist and the anesthesia staff. Fire risk was assessed. The non-invasive ankle distractor was then attached sterilely to the OR table and then was applied to the Right foot with the distractor straps. Distraction was then applied to the ankle joint. Totaldistraction time was less than one hour. The medial sided incision for the anterior medial portal was established first. This was done by first placing an 18-gauge needle midway between the medial malleolus and anterior tib tendon at the level of the ankle joint line. This 18- gauge needle was advanced with care taken not to damage the intra-articular cartilage. Once the needle was placed within the correct space sterile saline was injected through the syringe into the ankle joint with good back flow being established. This backflow indicated that the needle was within the ankle joint itself. The needle was then removed and a 15 blade scalpel was used to make a small incision for the anterior medial portal. After the skin was incised the subcutaneous tissues were divided bluntly using a small hemostat until the ankle joint capsule was encountered. The hemostat was then used to enter the anteromedial joint capsule. A 3 mm arthroscope was then placed within the ankle joint. Initial diagnostic arthroscopy was performed through this anterior medial incision site. The scope was then placed such that the anterior lateral of the ankle joint was arthroscopically visualized. In similar fashion and an 18-gauge needle was placed through an anterior lateral point at the joint line level with care taken to stay lateral to the superficial peroneal nerve branches. The needle was advanced until it was well visualized within the anklejoint. Once the portal site was established, the needle was removed and a 15 blade scalpel was usedto incise the skin and then a small straight hemostat was used to bluntly dissect through the subcutaneous tissues to the joint capsule level. Blunt dissection with the hemostat was performed in order to avoid injury to branches of the superficial peroneal nerve. The hemostat was then used to enterthe ankle joint capsule. Further diagnostic arthroscopy was carried out with the addition of a joint probe placed through the anterolateral portal. The arthroscopic probe was used to identify the area of the osteochondral lesion. The lesion was noted over the medial portion of the dome of the talus. The cartilage was found to be delaminated fromthe underlying subchondral boneOnce the osteochondral lesion was identified debridement was carriedout with a combination of curettes and a shaver. Once the entire lesion was debrided of the abnormal overlying articular cartilage the subchondral plate was assessed. The size of the lesion was measured using the intra-articular probe to ensure that the complete lesion was identified as compared topreoperative radiographic imaging. Once this was verified a Jesika pick was utilized to create multiple microfractures through the subchondral plate. Once microfracture was complete the flow was turned off and the tourniquet was released to assess bleeding from each microfracture site. Those sitesthat did not bleed were deepened until bleeding occurred. Care was taken during the debridement to maintain vertical cartilaginous moya at the lesion edges. Once adequate bleeding was encountered from the microfracture sites any loose bone created during the microfracture was removed using a shaver. The joint was once again fully inspected arthroscopically for any loose cartilage or bone. Any loose cartilage or bone that was identified was removed. Once completed all arthroscopic instrumentation was removed from the ankle. The portal incision sites were then closed using 3-0 nylon suture in an interrupted horizontal mattress type stitches. The ankle was was exsanguinated using an Esmarch bandage. The posterior lateral incision was then made in line with the peroneal tendon sheath. Skin and subcutaneous tissues were divided and care wastaken to protect branches of the superficial peroneal and sural nerves. Any crossing vessels were cauterized. The peroneal tendon sheath was opened proximal to the superior peroneal retinaculum, through the superior peroneal retinaculum by releasing the superior peroneal retinaculum just posterior to its insertion on the lateral malleolus and then distally this sheath was also opened. This gave good visualization of the entire length of the peroneal tendons throughout the course from proximal to distal. The peroneus brevis was found to have a tear approximately 5 cm in length. The peroneus longus was found to be intact with no tear or abnormality. 2-0 ethibond suture was utilized to repair the peroneus brevis tear using a running baseball-stitchtechnique with care taken to bury the knots within the tendon. 1 fiber tack suture anchor was utilized to repair the superior peroneal retinaculum. The posterior-lateral lip of the distal fibular was curreted to create a bleeding bony bed where the superior retinaculum originates. 1 remote pilot operator hole was drilled for the suture anchor in the bony trough that had been created. The fiber tack suture anchor was then placed. The fiber tack suture was then placed throughthe superior retinacular tissue. The fiber tack was then tensioned pulling the retinaculum to the posterior-lateral fibula and the sutures were tied holding the repair in place. The ankle and foot were then put through their full ranges of motion and the peroneals were found to easily glide through superior peroneal retinacular portion of the tendon sheath with no tendon instability being seen. The tourniquet was then released and any active bleeding was controlled using Bovie cautery. The wound was thoroughly irrigated with copious amounts of sterile saline. The subcutaneous tissueswere then closed utilizing 2-0 Vicryl. The skin was then closed utilizing 4-0 Monocryl in a subcuticular type running stitch. Dermabond was then applied to the incision(s) and allowed to dry. Dry sterile dressings were then applied and a well-padded posterior splint with the ankle in neutral dorsiflexion was placed. Chantal was then awakened from her anesthetic, transferred to her hospital bed and taken to the recovery room in stable medical condition. Post-operative plan: Follow-up: Chantal will follow-up in 2 weeks for her first post-operative check. Suture removal: her incision(s) was/were closed with buried suture and she will not need sutures removed Shoe instructions: At the first post-operative visit Chantal will will be placed in a tall Aircast boot and will be allowed to remove the boot for sleep, for bathing and for ROM of the foot and ankle. Weight bearing: Chantal will be instructed to be nonweight bearing on the right lower extremity in the aircast boot following the 2 week visit and this will be continued until the 6 week office visit. Follow-up plan with Dr Jimenez after 2 week visit: Chantal should be scheduled to see Dr Jimenez at 6 weeks post-op for re-evaluation X-rays at 6 week follow-up: Chantal will not need x-rays post-operatively [id number] Discharge instructions* Discharge Instructions* JARED Hauser - 08/16/2022 11:42 AM EDT Images from the original note were not included. SPLINT INSTRUCTIONS Keep your splint clean and dry. Do not put anything down in the splint to scratch. If your splint gets wet or starts to feel uncomfortable call Dr Jimenez immediately ([phone]). If you see any blood on the outside bandage reinforce it on the surface with gauze and an estee bandage and call Dr Jimenez [phone]. Do not walk or stand on your splint. You can rest the splint on the floor but do not put weight on it. You should get up and move around once or twice an hour based on your comfort level. You are notto be at bed rest meaning you need to get up and move around in order to prevent blood clots. It is OK to wiggle your toes and you can contract your calf muscle inside the splint as well. When you put your foot down it is normal for the toes to turn a bluish or purple color. Once you elevate the foot for a few minutes a normal pink color should return underneath the toenails. If the color does not change within 10 minutes after elevating call Dr. Jimenez. ELEVATION Keep your foot/ankle elevated for comfort. Elevating your foot/ankle is the best way to control your swelling and pain. Elevation means keeping the toes at the level of your nose. If your leg is not elevated to that height then it is not truly elevated. This is Elevated This is not Elevated MEDICATIONS You have been given a prescription for a narcotic medication that is intended for postoperative pain control. This medication should be used judiciously to try and minimize your discomfort after surgery. The medication will not relieve all of your pain and you should not take large amounts of the medication in an attempt to be pain free. Please understand that narcotic medications can be addictive and they are intended to decrease but not eliminate your pain and should therefore be used in moderation. If you have questions regarding taking the narcotic medication and other medications that you are currently on please call the office. You cannot drive or operate machinery while taking the narcotic medication. You should not drink alcohol or use recreational drugs while taking the narcotic medication.[facility] restricts the amount of pain pills that can be legally prescribed and no more than one prescription in a week can be given. If you require a refill of the pain medication it requires that someone come to the office in person as it cannot be called in to the pharmacy or E-prescribed. Please understand that there is a limit to the total amount of pain medication that canbe prescribed so make every effort to take it only when needed. Unless otherwise instructed by Dr Jimenez you can take an over the counter anti-inflammatory to help with your pain as well. This includes but is not limited to Ibuprofen, Advil, Motrin, Alleve, etc. A prescription for baby aspirin was sent to your pharmacy and Dr. Jimenez wants you to take one tablet twice a day. If you have any issues with the medication call Dr. Jimenez. A prescription for Narcan was also sent to your pharmacy. This is in case of opioid overdose. Signsof an opioid overdose include: unusual sleepiness or unresponsiveness, slow or absent breathing, slow heartbeat or low blood pressure, skin feels cold and clammy, pupils are tiny, or nails and/or lips are blue. If Narcan is administered, have someone bring you to the ER or call for an ambulance. WEIGHTBEARING INSTRUCTIONS Dr Jimenez wants you to be nonweight bearing on the right lower extremity. You will continue this weight bearing restriction for the next 6 weeks If you have any problems maintaining this weight bearing status please call the office so that appropriate instructions can be given. FREQUENTLY ASKED QUESTIONS FREQUENTLY ASKED QUESTIONS If I am supposed to be non-weight bearing on the operative foot/ankle can I still rest the foot on the ground when I am sitting? Yes, it is OK to rest your operative foot on the ground when you are sitting. Is it normal to feel a sahni of fluid or pressure in my foot/ankle when I put it down? Yes, after most foot, ankle or leg surgeries it is very common to feel immediate swelling or pressure in your foot, ankle and leg. Is it OK to put ice on my foot/ankle to help with the swelling and pain? After foot/ankle surgery elevating the foot/ankle is much better at relieving pain and swelling than ice. In many cases you bandage prevents the cold from getting to your skin. At your 2 week visit when your bandage is removed, icing the foot/ankle works much better and you can start it then. If I received a nerve block before surgery, how long will it last? A single shot nerve block can last anywhere from 8 hours to 36 hours on average, some patients' single shot blocks stop sooner and some can go a little longer. A catheter block (pain ball) lasts longer when you have it dialed down and it runs out faster if you have it dialed up. For most patients it lasts for a day and a half to 3 days. Can I shower or bathe after surgery? Yes, you can shower or bathe after surgery but you have to put a plastic bag over your splint/dressing to keep the splint/bandage absolutely dry. The splint/bandage is like a sponge and any water that gets in can damage your skin or cause your incision/incisions to open up and get infected. If your splint/bandage gets water in it, call Dr. Jimenez's office ([phone]) immediately and you will beinstructed which office can see your the quickest to change your splint/bandage. * Discharge Instr - Activity* JARED Hauser - 08/16/2022 11:43 AM EDT Weight-bearing and post-operative activity Dr Jimenez wants you to be nonweight bearing on the right lower extremity. You will continue this weight bearing restriction for the next 6 weeks If you have any problems maintaining this weight bearing status please call the office so that appropriate instructions can be given. Dr. Jimenez wants you to get up once per hour during the day to move around for a few minutes while following the above weight bearing orders. He does not want you to be in bed or on a couch all day not getting up. Getting up and moving once per hour helps to promote blood flow and is one way of trying to prevent a blood clot. Remember that when you get up it is normal for your foot/toes to change color and for you to feel fluid, pressure or throbbing (your heart beat) in your foot or toes. When you return to sitting down or laying down elevate your foot as it will lessen your swelling and be more comfortable. If you are having a hard time moving around during the day, let Dr Jimenez know. * Discharge Instr - Diet* JARED Hauser - 08/16/2022 11:43 AM EDT Good nutrition is important when healing from an illness, injury, or surgery. Follow any nutrition recommendations given to you during your hospital stay. If you were given an oral nutrition supplement while in the hospital, continue to take this supplement at home. You can take it with meals, in-between meals, and/or before bedtime. These supplements can be purchased at most local grocery stores, pharmacies, and chain [employer]-stores. If you have any questions about your diet or nutrition, call the hospital and ask for the dietitian. * Attachments The following attachments cannot be sent through Care Everywhere. * General Anesthesia Discharge Instructions (Cymro) documented in this [facility]03-16-2023 Attending History and physical note* Jun Jimenez MD - 08/16/2022 11:30 AM EDT H&P reviewed. The patient was examined and there are no changes to the H&P. Source Note - Travon Etienne PA-C - 08/09/2022 12:30 PM EST Comprehensive PreSurgical History and Physical ? Name: Chantal Linares : 1950 (Age-72 y.o.) Date of Service: Pt seen/examined on 08/09/2022 Procedure Information Date/Time: 08/16/22 1130 Procedures: Right repair peroneal tendon, and ankle arthroscopic debridement talar osteochondral lesion (Right:Leg Lower) - 2 hours ARTHROSCOPY ANKLE EXCISION OSTEOCHONDRAL DEFECT OF TALUS AND OR TIBIA (Right: Ankle) Location: [address] Operating Room Surgeons: Jun Jimenez MD Chief Complaint: RIGHT ANKLE PAIN History Of Present Illness: 72 y.o. female who c/o RIGHT ANKLE PAIN Pt has seen the surgeon and elected for above procedure. And as per ortho consultation notes Chantal is a 72 y.o. female here today for evaluation of her right ankle Chantal states the problem has been present for 2 years. She states that she has pain on a daily basis. There are days where her ankle is very stiff. She states that she has 2 distinct areas of pain. One is in the front inner aspect of her ankle and one is on the side of the ankle. She recently had an MRI and was then referred back to my office. I saw her for similar symptoms approximately 3 years ago. Chantal states the problem started gradually with no injuries occurring Chantal has tried or has been treated with the following: injections. Denies Hx of , DM, CAD, CHF, UT, TIA/CVA, DVT/PE, , MIRIAM Missing teeth? - FULL DENTURES TOP AND PARTIALS BOTTOM Hx problems with anesthesia? - PONV Snore at night? - SOMETIMES Climb a flight of stairs? - YES BUT WITH SOME DIFFICULTIES Past Medical History: Past Medical History: 09/07/2018: Acute bacterial sinusitis No date: Anxiety No date: CAD (coronary artery disease) No date: COPD (chronic obstructive pulmonary disease) ([facility]) No date: Depression No date: Diverticulosis No date: Fibromyalgia No date: GERD (gastroesophageal reflux disease) No date: Hyperlipidemia No date: Irritable bowel syndrome No date: Osteochondral lesion of talar dome Comment: SCHEDULED FOR THE SURGERY ON 08/16/22 AT [facility] No date: PONV (postoperative nausea and vomiting) No date: Rheumatoid arthritis ([facility]) No date: Type II or unspecified type diabetes mellitus without mention of complication, not stated as uncontrolled ([facility]) Comment: New during admit: A1c 6.5 on 10/11/14- DIET CONTROLLED Past Surgical History: Past Surgical History: No date: ADENOIDECTOMY No date: APPENDECTOMY 10 11 2014: CARDIAC CATHETERIZATION Comment: NO INTERVENTION No date: CATARACT EXTRACTION No date: CHOLECYSTECTOMY 03 16 2013: COLON SURGERY Comment: approx; sigmoidectomy diverticulosis No date: COLON SURGERY 01 06 2013: COLONOSCOPY Comment: colonic polyps, diverticulosis, hemorrhoids No date: HYSTERECTOMY No date: NECK SURGERY Comment: C5-C7 ACDF (Dr. Adam) No date: TONSILLECTOMY No date: TONSILLECTOMY AND ADENOIDECTOMY (HISTORICAL) No date: TUBAL LIGATION 01 06 2013 : UPPER GASTROINTESTINAL ENDOSCOPY Comment: see report Current Outpatient Medications: ALPRAZolam (Xanax) 0.25 MG tablet, take 1 tablet by mouth NIGHTLY NEEDED FOR SLEEP OR ANXIETY FOR UP TO 90 DAYS, Disp: 30 tablet, Rfl: 0 budesonide-formoterol (Symbicort) 160-4.5 MCG/ACT inhaler, Inhale 2 puffs in the morning and 2 puffs in the evening. Rinse mouth with water after use to reduce aftertaste and incidence of candidiasis. Do not swallow.. (Patient taking differently: Inhale 2 puffs 3 times daily as needed. Rinse mouth with water after use to reduce aftertaste and incidence of candidiasis. Do not swallow.), Disp: 3 each, Rfl: 3 cyanocobalamin (Vitamin B-12) 100 MCG tablet, Take 50 mcg by mouth in the morning., Disp: , Rfl: Fluticasone Furoate-Vilanterol (Breo Ellipta) 100-25 MCG/ACT aerosol powder , Inhale every morning (before breakfast)., Disp: , Rfl: gabapentin (Neurontin) 100 MG capsule, Take 100 mg by mouth in the morning and 100 mg before bedtime., Disp: , Rfl: lansoprazole (Prevacid) [address] capsule, Take 30 mg by mouth in the morning., Disp: , Rfl: losartan (Cozaar) 50 MG tablet, Nightly., Disp: , Rfl: ondansetron ODT (Zofran-ODT) 8 MG disintegrating tablet, DISSOLVE 1 TABLET ON TONGUE 3 TIMES DAILY NEEDED FOR NAUSEA OR VOMITING, Disp: , Rfl: pantoprazole (ProtoNix) 40 MG EC tablet, Take 40 mg by mouth in the morning., Disp: , Rfl: Premarin vaginal cream, insert 1 gram vaginally 2 TO 3 NIGHTS A WEEK, Disp: , Rfl: sertraline (Zoloft) 100 MG tablet, take 2 tablets by mouth once daily (Patient taking differently: every morning. take 2 tablets by mouth once daily), Disp: 180 tablet, Rfl: 3 simvastatin (Zocor) 40 MG tablet, Take 1 tablet (40 mg) by mouth daily., Disp: 90 tablet, Rfl: 3 tiZANidine (Zanaflex) 4 MG tablet, Take 4 mg by mouth 3 times daily as needed., Disp: , Rfl: traMADol (Ultram) 50 MG tablet, take 1 tablet by mouth once daily if needed for pain, Disp: , Rfl: Turmeric 500 MG capsule, Take by mouth every morning., Disp: , Rfl: CHRONIC NARCOTIC USE: No Allergies: Lisinopril and Propranolol hcl If patient has opioid allergy, is it okay to take Acetaminophen: Yes Social History: TOBACCO: reports that she has been smoking cigarettes. She has been smoking an average of 1 pack per day. She has never used smokeless tobacco. ETOH: reports no history of alcohol use. Social History Substance and Sexual Activity Drug Use No Family History: Family History Problem Relation Name Age of Onset Heart attack Mother Dementia Father Rheum arthritis Father Osteoporosis Father Atrial fibrillation Father Other ([id number]) Father CHF Heart attack Sister No Known Problems Brother No Known Problems Son No Known Problems Son Cancer Maternal Grandfather Leukemia Cancer Other unknown origin--2 aunts Diabetes Other grandmother REVIEW OF SYSTEMS: Review of Systems Constitutional: Negative for chills and fever. Respiratory: Negative for shortness of breath. Gastrointestinal: Negative for nausea and vomiting. Pertinent positives as noted in the HPI. Physical Exam: Physical Exam Vitals and nursing note reviewed. Constitutional: Appearance: Normal appearance. HENT: Head: Normocephalic and atraumatic. Mouth/Throat: Mouth: Mucous membranes are moist. Eyes: Extraocular Movements: Extraocular movements intact. Pupils: Pupils are equal, round, and reactive to light. Cardiovascular: Rate and Rhythm: Normal rate and regular rhythm. Pulses: Normal pulses. Pulmonary: Effort: Pulmonary effort is normal. Abdominal: General: Bowel sounds are normal. Musculoskeletal: Cervical back: Normal range of motion and neck supple. Skin: General: Skin is warm. Neurological: General: No focal deficit present. Mental Status: She is alert. Psychiatric: Mood and Affect: Mood normal. Behavior: Behavior normal. Vitals: BP (!) 147/92 Pulse 88 Ht 1.702 m (5' 7") Wt 73.5 kg (162 lb) BMI 25.37 kg/m Labs: Lab Results Component Value Date WBC 5.9 07/10/2022 HGB 12.9 07/10/2022 HCT 37.5 07/10/2022 MCV 91.5 07/10/2022 PLT 312 07/10/2022 Lab Results Component Value Date NA 137 06/06/2021 K 4.1 06/06/2021 CL 103 06/06/2021 CO2 32 07/10/2022 BUN 17 07/10/2022 CREATININE 0.48 (L) 07/10/2022 GLUCOSE 92 07/10/2022 CALCIUM 9.9 07/10/2022 PROT 6.3 07/10/2022 ALKPHOS 60 07/10/2022 AST 11 07/10/2022 ALT 10 07/10/2022 EGFR 100 07/10/2022 Kory's Simple Cardiac Risk Index: KORY'S SIMPLE CARDIAC RISK SCORE: 1 Interpretation: 0 Points Class I 0.5% 1 Point Class II 1.3% 2 Points Class III 3.6% 3+ Points Class IV 9.1% PAT Pain Score: Pain Score: 6 Postop Pain Management Plan (Pain consult ordered?): Pain consult not indicated at this time ? EKG: Done today: Encounter Date: 08/09/22 ECG 12 lead Result Value Heart Rate 85 QRSD Interval 74 QT Interval 364 QTC Interval 433 P Winfield 50 QRS Winfield 29 T Wave Winfield 31 DE Interval 164 Impression SINUS RHYTHM BORDERLINE INFERIOR Q WAVES BORDERLINE R WAVE PROGRESSION, ANTERIOR LEADS Compared to ECG 10/10/2014 15:34:09 Left ventricular hypertrophy no longer present Myocardial infarct finding no longer present ECHO and EF:None on file No components found for: LVEF, LVEFMODE ASSESSMENT/PLAN: Patient is considered intermediate risk for this intermediate risk procedure/surgery noted above ()with no reducible risk factors. Based on the above evaluation, the benefits of the planned procedure likely exceed the risks. The patient is medically optimized to proceed with the planned procedure w ithout any further cardiopulmonary testing. 1) OSTEOCHONDRAL DEFECT OF RIGHT ANKLE Managed per surgery 2) HTN ; ON COZAAR 3) HYPERLIPIDEMIA ; ON ZOCOR 4) CURRENT SMOKER 5) COPD ; ON SYMBICORT , BREO ELLIPTA 6) ANXIETY/DEPRESSION ; ON XANAX AND ZOLOFT 7) GERD ; ON PROTONIX , PREVACID 8) NUMBNESS AND TINGLING IN THE RIGHT ANKLE ; ON NEURONTIN AND ZANAFLEX Visit Type: Pre-Admission Testing Visit Labs Ordered: NO - COMPLETE PRIOR TO PAT VISIT DONE ON 07/10/22 IN HER PCP'S OFFICE Sleep Referral Ordered: NO - NEGATIVE SCREEN PER SLEEP REFERRAL PROTOCOL Electronically signed by: TRAVON ETIENNE PA-C Date: 08/09/2022 at 1:18 PM PAT Protocol referenced includes: 1. Anesthesia Lab Protocol Orders 2. Perioperative Cardiovascular Risk Assessment 3. Anesthesia Assessment 4. Pain Assessment and Acute Pain Service Consult (if appropriate) 5. Medical Clearance/Consult from Internal Medicine (IMS) 6. Shower/Wash Order (for designated surgeries) 7. MIRIAM Screen and Sleep Clinic Referral (if appropriate) [facility] Phone: [phone] History and physical note* Jun Jimenez MD - 08/16/2022 11:30 AM EDT H&P reviewed. The patient was examined and there are no changes to the H&P. Source Note - Travon Etienne PA-C - 08/09/2022 12:30 PM EST Comprehensive PreSurgical History and Physical ? Name: Chantal Linares : 1950 (Age-72 y.o.) Date of Service: Pt seen/examined on 08/09/2022 Procedure Information Date/Time: 08/16/22 1130 Procedures: Right repair peroneal tendon, and ankle arthroscopic debridement talar osteochondral lesion (Right:Leg Lower) - 2 hours ARTHROSCOPY ANKLE EXCISION OSTEOCHONDRAL DEFECT OF TALUS AND OR TIBIA (Right: Ankle) Location: [place] [address] / [facility] Operating Room Surgeons: Jun Jimenez MD Chief Complaint: RIGHT ANKLE PAIN History Of Present Illness: 72 y.o. female who c/o RIGHT ANKLE PAIN Pt has seen the surgeon and elected for above procedure. And as per ortho consultation notes Chantal is a 72 y.o. female here today for evaluation of her right ankle Chantal states the problem has been present for 2 years. She states that she has pain on a daily basis. There are days where her ankle is very stiff. She states that she has 2 distinct areas of pain. One is in the front inner aspect of her ankle and one is on the side of the ankle. She recently had an MRI and was then referred back to my office. I saw her for similar symptoms approximately 3 years ago. Chantal states the problem started gradually with no injuries occurring Chantal has tried or has been treated with the following: injections. Denies Hx of , DM, CAD, CHF, UT, TIA/CVA, DVT/PE, , MIRIAM Missing teeth? - FULL DENTURES TOP AND PARTIALS BOTTOM Hx problems with anesthesia? - PONV Snore at night? - SOMETIMES Climb a flight of stairs? - YES BUT WITH SOME DIFFICULTIES Past Medical History: Past Medical History: 09/07/2018: Acute bacterial sinusitis No date: Anxiety No date: CAD (coronary artery disease) No date: COPD (chronic obstructive pulmonary disease) ([facility]) No date: Depression No date: Diverticulosis No date: Fibromyalgia No date: GERD (gastroesophageal reflux disease) No date: Hyperlipidemia No date: Irritable bowel syndrome No date: Osteochondral lesion of talar dome Comment: SCHEDULED FOR THE SURGERY ON 08/16/22 AT [facility] No date: PONV (postoperative nausea and vomiting) No date: Rheumatoid arthritis (HCC) No date: Type II or unspecified type diabetes mellitus without mention of complication, not stated as uncontrolled (HCC) Comment: New during admit: A1c 6.5 on 10/11/14- DIET CONTROLLED Past Surgical History: Past Surgical History: No date: ADENOIDECTOMY No date: APPENDECTOMY 10 11 2014: CARDIAC CATHETERIZATION Comment: NO INTERVENTION No date: CATARACT EXTRACTION No date: CHOLECYSTECTOMY 03 16 2013: COLON SURGERY Comment: approx; sigmoidectomy diverticulosis No date: COLON SURGERY 01 06 2013: COLONOSCOPY Comment: colonic polyps, diverticulosis, hemorrhoids No date: HYSTERECTOMY No date: NECK SURGERY Comment: C5-C7 ACDF (Dr. Adam) No date: TONSILLECTOMY No date: TONSILLECTOMY AND ADENOIDECTOMY (HISTORICAL) No date: TUBAL LIGATION 01 06 2013 : UPPER GASTROINTESTINAL ENDOSCOPY Comment: see report Current Outpatient Medications: ALPRAZolam (Xanax) 0.25 MG tablet, take 1 tablet by mouth NIGHTLY NEEDED FOR SLEEP OR ANXIETY FOR UP TO 90 DAYS, Disp: 30 tablet, Rfl: 0 budesonide-formoterol (Symbicort) 160-4.5 MCG/ACT inhaler, Inhale 2 puffs in the morning and 2 puffs in the evening. Rinse mouth with water after use to reduce aftertaste and incidence of candidiasis. Do not swallow.. (Patient taking differently: Inhale 2 puffs 3 times daily as needed. Rinse mouth with water after use to reduce aftertaste and incidence of candidiasis. Do not swallow.), Disp: 3 each, Rfl: 3 cyanocobalamin (Vitamin B-12) 100 MCG tablet, Take 50 mcg by mouth in the morning., Disp: , Rfl: Fluticasone Furoate-Vilanterol (Breo Ellipta) 100-25 MCG/ACT aerosol powder , Inhale every morning (before breakfast)., Disp: , Rfl: gabapentin (Neurontin) 100 MG capsule, Take 100 mg by mouth in the morning and 100 mg before bedtime., Disp: , Rfl: lansoprazole (Prevacid) [address] capsule, Take 30 mg by mouth in the morning., Disp: , Rfl: losartan (Cozaar) 50 MG tablet, Nightly., Disp: , Rfl: ondansetron ODT (Zofran-ODT) 8 MG disintegrating tablet, DISSOLVE 1 TABLET ON TONGUE 3 TIMES DAILY NEEDED FOR NAUSEA OR VOMITING, Disp: , Rfl: pantoprazole (ProtoNix) 40 MG EC tablet, Take 40 mg by mouth in the morning., Disp: , Rfl: Premarin vaginal cream, insert 1 gram vaginally 2 TO 3 NIGHTS A WEEK, Disp: , Rfl: sertraline (Zoloft) 100 MG tablet, take 2 tablets by mouth once daily (Patient taking differently: every morning. take 2 tablets by mouth once daily), Disp: 180 tablet, Rfl: 3 simvastatin (Zocor) 40 MG tablet, Take 1 tablet (40 mg) by mouth daily., Disp: 90 tablet, Rfl: 3 tiZANidine (Zanaflex) 4 MG tablet, Take 4 mg by mouth 3 times daily as needed., Disp: , Rfl: traMADol (Ultram) 50 MG tablet, take 1 tablet by mouth once daily if needed for pain, Disp: , Rfl: Turmeric 500 MG capsule, Take by mouth every morning., Disp: , Rfl: CHRONIC NARCOTIC USE: No Allergies: Lisinopril and Propranolol hcl If patient has opioid allergy, is it okay to take Acetaminophen: Yes Social History: TOBACCO: reports that she has been smoking cigarettes. She has been smoking an average of 1 pack per day. She has never used smokeless tobacco. ETOH: reports no history of alcohol use. Social History Substance and Sexual Activity Drug Use No Family History: Family History Problem Relation Name Age of Onset Heart attack Mother Dementia Father Rheum arthritis Father Osteoporosis Father Atrial fibrillation Father Other ([id number]) Father CHF Heart attack Sister No Known Problems Brother No Known Problems Son No Known Problems Son Cancer Maternal Grandfather Leukemia Cancer Other unknown origin--2 aunts Diabetes Other grandmother REVIEW OF SYSTEMS: Review of Systems Constitutional: Negative for chills and fever. Respiratory: Negative for shortness of breath. Gastrointestinal: Negative for nausea and vomiting. Pertinent positives as noted in the HPI. Physical Exam: Physical Exam Vitals and nursing note reviewed. Constitutional: Appearance: Normal appearance. HENT: Head: Normocephalic and atraumatic. Mouth/Throat: Mouth: Mucous membranes are moist. Eyes: Extraocular Movements: Extraocular movements intact. Pupils: Pupils are equal, round, and reactive to light. Cardiovascular: Rate and Rhythm: Normal rate and regular rhythm. Pulses: Normal pulses. Pulmonary: Effort: Pulmonary effort is normal. Abdominal: General: Bowel sounds are normal. Musculoskeletal: Cervical back: Normal range of motion and neck supple. Skin: General: Skin is warm. Neurological: General: No focal deficit present. Mental Status: She is alert. Psychiatric: Mood and Affect: Mood normal. Behavior: Behavior normal. Vitals: BP (!) 147/92 Pulse 88 Ht 1.702 m (5' 7") Wt 73.5 kg (162 lb) BMI 25.37 kg/m Labs: Lab Results Component Value Date WBC 5.9 07/10/2022 HGB 12.9 07/10/2022 HCT 37.5 07/10/2022 MCV 91.5 07/10/2022 PLT 312 07/10/2022 Lab Results Component Value Date NA 137 06/06/2021 K 4.1 06/06/2021 CL 103 06/06/2021 CO2 32 07/10/2022 BUN 17 07/10/2022 CREATININE 0.48 (L) 07/10/2022 GLUCOSE 92 07/10/2022 CALCIUM 9.9 07/10/2022 PROT 6.3 07/10/2022 ALKPHOS 60 07/10/2022 AST 11 07/10/2022 ALT 10 07/10/2022 EGFR 100 07/10/2022 Kory's Simple Cardiac Risk Index: KORY'S SIMPLE CARDIAC RISK SCORE: 1 Interpretation: 0 Points Class I 0.5% 1 Point Class II 1.3% 2 Points Class III 3.6% 3+ Points Class IV 9.1% PAT Pain Score: Pain Score: 6 Postop Pain Management Plan (Pain consult ordered?): Pain consult not indicated at this time ? EKG: Done today: Encounter Date: 08/09/22 ECG 12 lead Result Value Heart Rate 85 QRSD Interval 74 QT Interval 364 QTC Interval 433 P Winfield 50 QRS Winfield 29 T Wave Winfield 31 DE Interval 164 Impression SINUS RHYTHM BORDERLINE INFERIOR Q WAVES BORDERLINE R WAVE PROGRESSION, ANTERIOR LEADS Compared to ECG 10/10/2014 15:34:09 Left ventricular hypertrophy no longer present Myocardial infarct finding no longer present ECHO and EF:None on file No components found for: LVEF, LVEFMODE ASSESSMENT/PLAN: Patient is considered intermediate risk for this intermediate risk procedure/surgery noted above ()with no reducible risk factors. Based on the above evaluation, the benefits of the planned procedure likely exceed the risks. The patient is medically optimized to proceed with the planned procedure w ithout any further cardiopulmonary testing. 1) OSTEOCHONDRAL DEFECT OF RIGHT ANKLE Managed per surgery 2) HTN ; ON COZAAR 3) HYPERLIPIDEMIA ; ON ZOCOR 4) CURRENT SMOKER 5) COPD ; ON SYMBICORT , BREO ELLIPTA 6) ANXIETY/DEPRESSION ; ON XANAX AND ZOLOFT 7) GERD ; ON PROTONIX , PREVACID 8) NUMBNESS AND TINGLING IN THE RIGHT ANKLE ; ON NEURONTIN AND ZANAFLEX Visit Type: Pre-Admission Testing Visit Labs Ordered: NO - COMPLETE PRIOR TO PAT VISIT DONE ON 07/10/22 IN HER PCP'S OFFICE Sleep Referral Ordered: NO - NEGATIVE SCREEN PER SLEEP REFERRAL PROTOCOL Electronically signed by: TRAVON ETIENNE PA-C Date: 08/09/2022 at 1:18 PM PAT Protocol referenced includes: 1. Anesthesia Lab Protocol Orders 2. Perioperative Cardiovascular Risk Assessment 3. Anesthesia Assessment 4. Pain Assessment and Acute Pain Service Consult (if appropriate) 5. Medical Clearance/Consult from Internal Medicine (IMS) 6. Shower/Wash Order (for designated surgeries) 7. MIRIAM Screen and Sleep Clinic Referral (if appropriate) documented in this [facility]03-13-2023 Telephone encounter Note* Telephone Encounter - Wil Melendez MA - 08/13/2022 12:10 PM EDT LVM for Pam at [facility] relaying message [id number] Miscellaneous Notes* Telephone Encounter - Wil Melendez MA - 08/13/2022 12:10 PM EDT LVM for Pam at [facility] relaying message * Telephone Encounter - JARED Hauser - 08/13/2022 10:13 AM EDT If possible we would prefer both, if she can only get one I'd recommend the walker * Telephone Encounter - Donavan Torres - 08/13/2022 10:00 AM EDT Name of caller: Pam Contact phone number: [phone] ext. [phone] Relationship to Patient: other Provider: Dr Jimenez Practice: Ortho Chief Complaint/Reason for Call: Pam from [employer] calling to verify if you want the patient to have a walker with wheels or crutches. Please advise Best time of day caller can be reached: any Patient advised that office/PCP has 24-48 business hours to return their call: no [facility] [id number] Telephone encounter Note* Telephone Encounter - JARED Hauser - 08/13/2022 10:13 AM EDT If possible we would prefer both, if she can only get one I'd recommend the walker [facility] Phone: [phone] Telephone encounter Note* Telephone Encounter - Donavan Torres - 08/13/2022 10:00 AM EDT Name of caller: Pam Contact phone number: [phone] ext. [phone] Relationship to Patient: other Provider: Dr Jimenez Practice: Ortho Chief Complaint/Reason for Call: Pam from [employer] calling to verify if you want the patient to have a walker with wheels or crutches. Please advise Best time of day caller can be reached: any Patient advised that office/PCP has 24-48 business hours to return their call: no [id number] Note* Addendum Note - Gudelia Ha LPN - 08/06/2022 8:33 AM ESTAddended by: GUDELIA HA on: 08/06/2022 08:33 AM Modules accepted: Orders [id number] Note* Addendum Note - Gudelia Ha LPN - 08/06/2022 8:33 AM ESTAddended by: GUDELIA HA on: 08/06/2022 08:33 AM Modules accepted: Orders [id number] Miscellaneous Notes* Addendum Note - Gudelia Ha LPN - 08/06/2022 8:33 AM ESTAddended by: GUDELIA HA on: 08/06/2022 08:33 AM Modules accepted: Orders * Telephone Encounter - Gudelia Ha LPN - 08/06/2022 8:32 AM EST Referral placed for SM * Telephone Encounter - Cornelio Gramajo PA-C - 08/01/2022 4:27 PM EST She does not have any hip arthritis so not a surgical candidate at this time. Options for the hip and bursitis are limited. She can try formal PT for her hip and back which we would recommend, would advise following up with sports medicine for any further issues. * Telephone Encounter - Gudelia Ha LPN - 08/01/2022 1:44 PM EST From last office visit is she supposed to see sports Medicine? Please advise * Telephone Encounter - Rm Salomon - 08/01/2022 11:40 AM EST Pt calling to report since her hip injection on 07/25/22, pain has been worsening as well as bothering SI joint down to the L knee. Please advise. documented in this [facility]03-06-2023 Telephone encounter Note* Telephone Encounter - Gudelia Ha LPN - 08/06/2022 8:32 AM EST [facility]erral [facility] for [id number] Telephone encounter Note* Telephone Encounter - Cornelio Gramajo PA-C - 08/01/2022 4:27 PM EST She does not have any hip arthritis so not a surgical candidate at this time. Options for the hip and bursitis are limited. She can try formal PT for her hip and back which we would recommend, would advise following up with sports medicine for any further issues. [facility] Phone: [phone] Miscellaneous Notes* Telephone Encounter - Cornelio Gramajo PA-C - 08/01/2022 4:27 PM EST She does not have any hip arthritis so not a surgical candidate at this time. Options for the hip and bursitis are limited. She can try formal PT for her hip and back which we would recommend, would advise following up with sports medicine for any further issues. * Telephone Encounter - Gudelia Ha LPN - 08/01/2022 1:44 PM EST From last office visit is she supposed to see sports Medicine? Please advise * Telephone Encounter - Rm Salomon - 08/01/2022 11:40 AM EST Pt calling to report since her hip injection on 07/25/22, pain has been worsening as well as bothering SI joint down to the L knee. Please advise. documented in this [facility]ST[facility] [id number] Telephone encounter Note* Telephone Encounter - Gudelia Ha LPN - 08/01/2022 1:44 PM EST From last office visit is she supposed to see sports Medicine? Please advise [facility] [id number] Telephone encounter Note* Telephone Encounter - Rm Salomon - 08/01/2022 11:40 AM EST Pt calling to report since her hip injection on 07/25/22, pain has been worsening as well as bothering SI joint down to the L knee. Please advise. [facility] [id number] History of Present illness Narrative* Jian Mayberry MD - 07/25/2022 10:15 AM EST Images from the original note were not included. [facility] [address] [facility] [address] Dept: [phone] Dept 07/25/2022 Chief Complaint Patient presents with Follow-up Left hip pain; requesting injection Subjective: Chantal is a 72 y.o. female who presents for repeat evaluation of the left hip. At the last visit we initiated non-operative treatment consisting of... Rx for physical therapy Left hip steroid injection on 09/13/2021 - Patient reports a month of pain relief OTC Nsaids for pain management The patient reports the treatment has provided significant prolonged relief. She reports new pain lower left back, near SI joint. This has been progressing. OTC medications aren't helping. No groin pain. Review of Systems Past Medical History: Diagnosis Date Acute bacterial sinusitis 09/07/2018 Anxiety CAD (coronary artery disease) COPD (chronic obstructive pulmonary disease) (HCC) Depression Fibromyalgia GERD (gastroesophageal reflux disease) Hyperlipidemia Rheumatoid arthritis (HCC) Type II or unspecified type diabetes mellitus without mention of complication, not stated as uncontrolled ([facility]) New during admit: A1c 6.5 on 10/11/14 Past Surgical History: Procedure Laterality Date APPENDECTOMY CARDIAC CATHETERIZATION 10 11 2014 CHOLECYSTECTOMY COLON SURGERY 03 16 2013 approx; sigmoidectomy diverticulosis COLON SURGERY COLONOSCOPY 01 06 2013 colonic polyps, diverticulosis, hemorrhoids HYSTERECTOMY NECK SURGERY C5-C7 ACDF (Dr. Adam) TONSILLECTOMY AND ADENOIDECTOMY (HISTORICAL) TUBAL LIGATION UPPER GASTROINTESTINAL ENDOSCOPY 01 06 2013 see report Social History Socioeconomic History Marital status: Spouse name: Not on file Number of children: Not on file Years of education: Not on file Highest education level: Not on file Occupational History Not on file Tobacco Use Smoking status: Every Day Packs/day: 0.50 Types: Cigarettes Smokeless tobacco: Never Vaping Use Vaping Use: Never used Substance and Sexual Activity Alcohol use: No Drug use: No Sexual activity: Not on file Comment: Other Topics Concern Not on file Social History Narrative Not on file Social Determinants of Health Financial Resource Strain: Not on file Food Insecurity: Not on file Transportation Needs: Not on file Physical Activity: Not on file Stress: Not on file Social Connections: Not on file Intimate Partner Violence: Not on file Housing Stability: Not on file Family History Problem Relation Name Age of Onset Heart attack Mother Dementia Father Rheum arthritis Father Osteoporosis Father Atrial fibrillation Father Other ([id number]) Father CHF Heart attack Sister No Known Problems Brother No Known Problems Son No Known Problems Son Cancer Maternal Grandfather Leukemia Cancer Other unknown origin--2 aunts Diabetes Other grandmother Allergies Allergen Reactions Lisinopril Other reaction(s): AOF Propranolol Hcl Other reaction(s): Other (See Comments) [place] like I was floating Objective: Ht 5' 7" (1.702 m) Wt 160 lb (72.6 kg) BMI 25.06 kg/m Pt is a WD/WN female in no acute distress. She appears her stated age. Mood and affect are normal. She is A&O x 3. Gait: antalgic. RIGHT HIP: Skin is warm, dry and intact. There are no rashes, lesions, or obvious scars. No tenderness to palpation. Greater trochanter is not tender. ROM shows flexion 120, IR 30, ER 40, without pain. Stinchfield exam: negative. +PF/DF/EHL. SILT distally. DP/PT palpable. Straight leg raise negative for inciting radicular symptoms. LEFT HIP: Skin is warm, dry and intact. There are no rashes, lesions, or obvious scars. No tenderness to palpation. Greater trochanter is tender. SI joint is tender, no lumbar spine pain. ROM shows flexion 120, IR 30, ER 40, with pain. Stinchfield exam: negative. +PF/DF/EHL. SILT distally. DP/PT palpable. Straight leg raise negative for inciting radicular symptoms. The patient does not have a leg length discrepancy. Lab Findings: RELEVANT LABS: None Radiology Findings: 07/25/2022 images obtained by outside radiology department independently reviewed by myself today in office. XRAYS: Indication: Left hip pain. Exam Ordered: Radiographs include an anteroposterior pelvis, an anteroposterior, and lateral view of the proximal femur including the hip joint. Details of Examination: Exam shows no evidence of joint space narrowing or degenerative changes. Nofractures or dislocation identified. No obvious osseous abnormalities. No other significant findings are noted. Impression: Normal exam, left hip. Assessment 1. Chronic left SI joint pain 2. Left hip pain 3. Trochanteric bursitis of left hip Plan After a long discussion regarding the diagnosis, the correct course of treatment for this conditionis non-operative. The patient was told that this may take several months or even years to eventually resolve. They were also told that it may never quite resolve and some residual symptoms may persist. We discussed the plan with the patient regarding anti-inflammatory medications, PT/HEP to includestretching/pelvic strengthening, icing, and corticosteroid injection. The patient did wish to proceed with this plan which included NSAID's, Tylenol, corticosteroid injection, and continuing with home exercises as previously performed . Also, with the SI joint pain, will recommend NSAID's OTC, Tylenol, and will refer to [facility] for USG left sided SI joint injection. Patient is to follow-up as neededand call with any questions/concerns. They were told we could do injections about every 3 months. Patient agreed to this plan and all questions were thoroughly answered. Electronically signed by Jian Mayberry M.D. 07/25/2022 at 11:14 AM. documented in this [facility]02-22-2023 History of Present illness Narrative* Jian Mayberry MD - 07/25/2022 10:15 AM EST Images from the original note were not included. [facility] [address] [facility] [id number] Dept: [phone] Dept 07/25/2022 Chief Complaint Patient presents with Follow-up Left hip pain; requesting injection Subjective: Chantal is a 72 y.o. female who presents for repeat evaluation of the left hip. At the last visit we initiated non-operative treatment consisting of... Rx for physical therapy Left hip steroid injection on 09/13/2021 - Patient reports a month of pain relief OTC Nsaids for pain management The patient reports the treatment has provided significant prolonged relief. She reports new pain lower left back, near SI joint. This has been progressing. OTC medications aren't helping. No groin pain. Review of Systems Past Medical History: Diagnosis Date Acute bacterial sinusitis 09/07/2018 Anxiety CAD (coronary artery disease) COPD (chronic obstructive pulmonary disease) (HCC) Depression Fibromyalgia GERD (gastroesophageal reflux disease) Hyperlipidemia Rheumatoid arthritis (HCC) Type II or unspecified type diabetes mellitus without mention of complication, not stated as uncontrolled (HCC) New during admit: A1c 6.5 on 10/11/14 Past Surgical History: Procedure Laterality Date APPENDECTOMY CARDIAC CATHETERIZATION 10 11 2014 CHOLECYSTECTOMY COLON SURGERY 03 16 2013 approx; sigmoidectomy diverticulosis COLON SURGERY COLONOSCOPY 01 06 2013 colonic polyps, diverticulosis, hemorrhoids HYSTERECTOMY NECK SURGERY C5-C7 ACDF (Dr. Adam) TONSILLECTOMY AND ADENOIDECTOMY (HISTORICAL) TUBAL LIGATION UPPER GASTROINTESTINAL ENDOSCOPY 01 06 2013 see report Social History Socioeconomic History Marital status: Spouse name: Not on file Number of children: Not on file Years of education: Not on file Highest education level: Not on file Occupational History Not on file Tobacco Use Smoking status: Every Day Packs/day: 0.50 Types: Cigarettes Smokeless tobacco: Never Vaping Use Vaping Use: Never used Substance and Sexual Activity Alcohol use: No Drug use: No Sexual activity: Not on file Comment: Other Topics Concern Not on file Social History Narrative Not on file Social Determinants of Health Financial Resource Strain: Not on file Food Insecurity: Not on file Transportation Needs: Not on file Physical Activity: Not on file Stress: Not on file Social Connections: Not on file Intimate Partner Violence: Not on file Housing Stability: Not on file Family History Problem Relation Name Age of Onset Heart attack Mother Dementia Father Rheum arthritis Father Osteoporosis Father Atrial fibrillation Father Other ([id number]) Father CHF Heart attack Sister No Known Problems Brother No Known Problems Son No Known Problems Son Cancer Maternal Grandfather Leukemia Cancer Other unknown origin--2 aunts Diabetes Other grandmother Allergies Allergen Reactions Lisinopril Other reaction(s): AOF Propranolol Hcl Other reaction(s): Other (See Comments) [place] like I was floating Objective: Ht 5' 7" (1.702 m) Wt 160 lb (72.6 kg) BMI 25.06 kg/m Pt is a WD/WN female in no acute distress. She appears her stated age. Mood and affect are normal. She is A&O x 3. Gait: antalgic. RIGHT HIP: Skin is warm, dry and intact. There are no rashes, lesions, or obvious scars. No tenderness to palpation. Greater trochanter is not tender. ROM shows flexion 120, IR 30, ER 40, without pain. Stinchfield exam: negative. +PF/DF/EHL. SILT distally. DP/PT palpable. Straight leg raise negative for inciting radicular symptoms. LEFT HIP: Skin is warm, dry and intact. There are no rashes, lesions, or obvious scars. No tenderness to palpation. Greater trochanter is tender. SI joint is tender, no lumbar spine pain. ROM shows flexion 120, IR 30, ER 40, with pain. Stinchfield exam: negative. +PF/DF/EHL. SILT distally. DP/PT palpable. Straight leg raise negative for inciting radicular symptoms. The patient does not have a leg length discrepancy. Lab Findings: RELEVANT LABS: None Radiology Findings: 07/25/2022 images obtained by outside radiology department independently reviewed by myself today in office. XRAYS: Indication: Left hip pain. Exam Ordered: Radiographs include an anteroposterior pelvis, an anteroposterior, and lateral view of the proximal femur including the hip joint. Details of Examination: Exam shows no evidence of joint space narrowing or degenerative changes. Nofractures or dislocation identified. No obvious osseous abnormalities. No other significant findings are noted. Impression: Normal exam, left hip. Assessment 1. Chronic left SI joint pain 2. Left hip pain 3. Trochanteric bursitis of left hip Plan After a long discussion regarding the diagnosis, the correct course of treatment for this conditionis non-operative. The patient was told that this may take several months or even years to eventually resolve. They were also told that it may never quite resolve and some residual symptoms may persist. We discussed the plan with the patient regarding anti-inflammatory medications, PT/HEP to includestretching/pelvic strengthening, icing, and corticosteroid injection. The patient did wish to proceed with this plan which included NSAID's, Tylenol, corticosteroid injection, and continuing with home exercises as previously performed . Also, with the SI joint pain, will recommend NSAID's OTC, Tylenol, and will refer to [facility] for USG left sided SI joint injection. Patient is to follow-up as neededand call with any questions/concerns. They were told we could do injections about every 3 months. Patient agreed to this plan and all questions were thoroughly answered. Procedure Note: Written consent obtained after explanation of risks and benefits. Skin overlying the left hip bursae was prepped with alcohol solution. The bursae of the affected hip was injected with 2 mL of Celestone 6mg with 8 mL's of 1% lidocaine without complication. Bandaid applied. The patient tolerated the procedure well. Patient noted some immediate relief of symptoms after injection. Electronically signed by Jian Mayberry M.D. 07/25/2022 at 11:14 AM. documented in this [facility]12-30-2022 History of Present illness Narrative* Martir Keene MD - 06/01/2022 10:00 AM EST Images from the original note were not included. [facility] [address] [facility] [id number] Visit type: Established Patient Reason for Visit: Medicare Annual Wellness Visit Subsequent Assessment and Plan 1. Routine general medical examination at health care facility 2. COPD, moderate (CMS/HCC) ([facility]) COPD is well controlled on Breo. She requests a refill today. Sending in. - Fluticasone Furoate-Vilanterol (Breo Ellipta) 100-25 MCG/ACT aerosol powder ; Inhale 1 each daily. Dispense: 60 each; Refill: 5 3. Diabetic on diet only ([facility]) ([facility]) A1c shows a very well controlled diabetic. Other labs pending for monitoring. Not currently on any antihyperglycemic's - CBC; Future - Comprehensive metabolic panel; Future - Lipid panel; Future - AMB POC HEMOGLOBIN A1C - CBC - Comprehensive metabolic panel - Lipid panel 4. Mixed hyperlipidemia Currently on simvastatin and doing well. No changes. 5. Scalp psoriasis Noticing an increase in her scalp psoriasis recently. Discussed OTC shampoos. 6. Anxiety Gets a fill of 30 tablets that lasts her approximately the full year. OARRS reviewed. Contract and UDS obtained today. - ALPRAZolam (Xanax) 0.25 MG tablet; take 1 tablet by mouth NIGHTLY NEEDED FOR SLEEP OR ANXIETY FOR UP TO 90 DAYS Dispense: 30 tablet; Refill: 0 No follow-ups on file. Subjective HPI PATIENT CONCERNS TODAY: Chantal Linares presented to the office for an annual wellness visit. Health Maintenance: Breast Cancer Screen: N/A Up to Date Colon Cancer Screen: N/A Up-to-Date 04/30/2017Dr. Solis Lung Cancer Screen: Lung cancer screening is not indicated Vaccines Up to date except for the following: Influenza and COVID I have reviewed and reconciled the medication list with the patient today. Current Outpatient Medications Medication Sig Dispense Refill cyanocobalamin (Vitamin B-12) 100 MCG tablet Take 50 mcg by mouth in the morning. fluticasone-vilanterol (BREO ELIPTA) 100-25 MCG/INH inhaler Inhale 1 puff in the morning. gabapentin (Neurontin) 100 MG capsule Take 100 mg by mouth in the morning and 100 mg before bedtime. lansoprazole (Prevacid) [address] capsule Take 30 mg by mouth in the morning. losartan (Cozaar) 50 MG tablet ondansetron ODT (Zofran-ODT) 8 MG disintegrating tablet DISSOLVE 1 TABLET ON TONGUE 3 TIMES DAILY NEEDED FOR NAUSEA OR VOMITING pantoprazole (ProtoNix) 40 MG EC tablet Take 40 mg by mouth in the morning. Premarin vaginal cream insert 1 gram vaginally 2 TO 3 NIGHTS A WEEK sertraline (Zoloft) 100 MG tablet take 2 tablets by mouth once daily 180 tablet 3 simvastatin (Zocor) 40 MG tablet Take 1 tablet (40 mg) by mouth daily. 90 tablet 3 tiZANidine (Zanaflex) 4 MG tablet Take 4 mg by mouth 3 times daily as needed. traMADol (Ultram) 50 MG tablet take 1 tablet by mouth once daily if needed for pain Turmeric 500 MG capsule Take by mouth. ALPRAZolam (Xanax) 0.25 MG tablet take 1 tablet by mouth NIGHTLY NEEDED FOR SLEEP OR ANXIETY FORUP TO 90 DAYS 30 tablet 0 Fluticasone Furoate-Vilanterol (Breo Ellipta) 100-25 MCG/ACT aerosol powder Inhale 1 each daily. 60each 5 No current facility-administered medications for this visit. Medications Discontinued During This Encounter Medication Reason sucralfate (Carafate) 1 g tablet Med list cleanup ALPRAZolam (Xanax) 0.25 MG tablet Reorder List of current healthcare providers: Patient Care Team: Martir Keene MD as PCP - General The following health maintenance schedule was reviewed with the patient and provided in printed form in the after visit summary: Health Maintenance Topic Date Due Bone Density Scan Never done Hepatitis A Vaccines (1 of 2 - Risk 2-dose series) Never done Diabetes: Foot Exam Never done Diabetes: Retinopathy Screening Never done Diabetes: Dental Exam Never done Hepatitis C Screening Never done DTaP/Tdap/Td Vaccines (1 - Tdap) Never done Zoster Vaccines (1 of 2) Never done Hepatitis B Vaccines (1 of 3 - Risk 3-dose series) Never done Mammogram 08/05/2021 COVID-19 Vaccine (3 - Booster for Genaro series) 08/17/2021 Influenza Vaccine (1) 02/01/2022 Diabetes: Urine Protein Screening 05/18/2022 Lipid Panel 06/06/2022 Diabetes: Hemoglobin A1C 08/30/2022 Pneumococcal Vaccine: 65+ Years Completed HIB Vaccines Aged Out IPV Vaccines Aged Out Meningococcal Vaccine Aged Out Rotavirus Vaccines Aged Out HPV Vaccines Aged Out Colorectal Cancer Screening Discontinued Orders Placed This Encounter Procedures CBC Standing Status: Future Number of Occurrences: 1 Standing Expiration Date: 06/01/2023 Comprehensive metabolic panel Standing Status: Future Number of Occurrences: 1 Standing Expiration Date: 06/01/2023 Lipid panel Standing Status: Future Number of Occurrences: 1 Standing Expiration Date: 06/01/2023 Order Specific Question: Has the patient been fasting for 8 hours or more? Answer: Yes AMB POC HEMOGLOBIN A1C Health Risk Assessment: General In general, how would you say your health is?: Good In the past 7 days, have you experienced any of the following: New or Increased Pain, New or Increased Fatigue, Loneliness, Social Isolation, Stress or Anger?: (!) Yes Select all that apply: New or Increased Pain Do you get the social and emotional suppport you need?: Yes Interventions: Pain Issues: Noticing aches and pains in random joints all over her body. Work- up to this point hasdemonstrated osteoarthritic changes. Discussed monitoring. Health Habits / Nutrition On average, how many days per week do you engage in moderate to strenous exercise (like a brisk walk)?: (!) 0 days On average, how man minutes do you engage in exercise at this level?: (!) 0 min Have you lost any weight without trying in the past 3 months? : No Have you seen the dentist within the past year?: (!) No Interventions: Inadequate physical activity: Patient is not ready to increase his / her physical activity level atthis time and Dental exam overdue: Patient encouraged to make appointment with his / her dentist Hearing / Vision Do you or your family notice any trouble with your hearing that hasn't been managed with hearing aids?: No Do you have difficulty driving, watching TV, or doing any of your daily activities because of your eyesight?: No Have you had an eye exam within the past year?: Yes No results found. Interventions: Safety Do you have a working smoke detector?: Yes Do you have any tripping hazards - loose or unsecured carpets or rugs?: (!) Yes Do you have any tripping hazards - clutter in doorways, halls, or stairs?: No Do you have either shower bars, grab bars, non-slip mats or non-slip surfaces in your shower or bathtub? : Yes Do all your stairways have a railing or banister? : Yes Do you fasten your seatbelt when you are in a car?: Yes Interventions: Patient declines any further evaluation / treatment for this issue ADL In the past 7 days, did you need help from others to perform any of the following everyday activities: Eating, dressing, grooming,bathing, toileting, or walking / balance? : No In the past 7 days, did you need help from others to take care of any of the following: laundry, housekeeping, banking / finances,shopping, telephone use, food preparation, transportation, or taking medications? : No Interventions: Living Will Do you have a living will?: No Interventions: Cognitive: Interventions: Fall Risk: Interventions: Depression Screening: Over the past 2 weeks, how often have you been bothered by any of the following problems? Little interest or pleasure in doing things: Not at all Feeling down, depressed, or hopeless: Not at all Patient Health Questionnaire-2 Score: 0 Interventions: Tobacco Use: Social History Tobacco Use Smoking Status Every Day Packs/day: 0.50 Types: Cigarettes Smokeless Tobacco Never Interventions: Alcohol Use: Audit Alcohol Screening Q1: How often do you have a drink containing alcohol?: Never Q2: How many drinks containing alcohol do you have on a typical day when you are drinking?: Patientdoes not drink Q3: How often do you have six or more drinks on one occasion?: Never Audit-C Score: 0 Skip to questions 9-10?: 1 Q4: How often during the last year have you found that you were not able to stop drinking once you had started?: Never Q5: How often during the last year have you failed to do what was normally expected from you because of drinking?: Never Q6: How often during the last year have you needed an alcoholic drink first thing in the morning toget yourself going after a night of heavy drinking?: Never Q7: How often during the last year have you had a feeling of guilt or remorse after drinking?: Never Q8: How often during the last year have you been unable to remember what happened the night before because you had been drinking?: Never Q9: Have you or someone else been injured as a result of your drinking?: No Q10: Has a relative, friend, doctor, or another health professional expressed concern about your drinking or suggested you cut down?: No Audit Total Score: 0 Interventions: Drug Use: Drug Abuse Screening Test (DAST-10) Have you used drugs other than those required for medical reasons?: No Do you use more than one drug at a time?: No Are you always able to stop using drugs when you want to?: Yes Have you had "blackouts" or "flashbacks" as a result of drug use?: No Do you ever feel bad or guilty about your drug use?: No Does your spouse (or parents) ever complain about your involvement with drugs?: No Have you ever neglected your family or missed work because of your use of drugs?: No Have you engaged in illegal activities in order to obtain drugs?: No Have you ever experienced withdrawal symptoms as a result of heavy drug intake?: No Have you had medical problems as a result of your drug use (e.g., memory loss, hepatitis, convulsions, bleeding, etc.)?: No DAST-10 Score: 0 Interventions: Review of Systems Constitutional: Negative for activity change, appetite change and fatigue. HENT: Negative for congestion, postnasal drip, rhinorrhea and sore throat. Respiratory: Negative for cough and shortness of breath. Cardiovascular: Negative for chest pain. Gastrointestinal: Negative for abdominal pain, constipation, diarrhea, nausea and vomiting. Musculoskeletal: Positive for arthralgias. Negative for myalgias. Skin: Negative for rash. All other systems reviewed and are negative. Immunization History Administered Date(s) Administered Influenza Whole 03/08/2014 Influenza, High Dose Seasonal, Preservative Free 03/30/2019 Influenza, High-dose Seasonal, Quadrivalent, Preservative Free 05/17/2020 Influenza, Unspecified 03/08/2014 [employer] SARS-CoV-2 Vaccination 08/11/2020 Pfizer SARS-CoV-2 Vaccination 06/22/2021 Pneumococcal Conjugate PCV 13 09/28/2016 Pneumococcal Polysaccharide PPSV23 01/28/2019 Allergies Allergen Reactions Lisinopril Other reaction(s): AOF Propranolol Hcl Other reaction(s): Other (See Comments) [place] like I was floating Outpatient Medications Prior to Visit Medication Sig Dispense Refill cyanocobalamin (Vitamin B-12) 100 MCG tablet Take 50 mcg by mouth in the morning. fluticasone-vilanterol (BREO ELIPTA) 100-25 MCG/INH inhaler Inhale 1 puff in the morning. gabapentin (Neurontin) 100 MG capsule Take 100 mg by mouth in the morning and 100 mg before bedtime. lansoprazole (Prevacid) [address] capsule Take 30 mg by mouth in the morning. losartan (Cozaar) 50 MG tablet ondansetron ODT (Zofran-ODT) 8 MG disintegrating tablet DISSOLVE 1 TABLET ON TONGUE 3 TIMES DAILY NEEDED FOR NAUSEA OR VOMITING pantoprazole (ProtoNix) 40 MG EC tablet Take 40 mg by mouth in the morning. Premarin vaginal cream insert 1 gram vaginally 2 TO 3 NIGHTS A WEEK sertraline (Zoloft) 100 MG tablet take 2 tablets by mouth once daily 180 tablet 3 simvastatin (Zocor) 40 MG tablet Take 1 tablet (40 mg) by mouth daily. 90 tablet 3 tiZANidine (Zanaflex) 4 MG tablet Take 4 mg by mouth 3 times daily as needed. traMADol (Ultram) 50 MG tablet take 1 tablet by mouth once daily if needed for pain Turmeric 500 MG capsule Take by mouth. ALPRAZolam (Xanax) 0.25 MG tablet take 1 tablet by mouth NIGHTLY NEEDED FOR SLEEP OR ANXIETY FORUP TO 90 DAYS sucralfate (Carafate) 1 g tablet Take 1 g by mouth Nightly. No facility-administered medications prior to visit. Past Medical History: Diagnosis Date Acute bacterial sinusitis 09/07/2018 Anxiety CAD (coronary artery disease) COPD (chronic obstructive pulmonary disease) ([facility]) Depression Fibromyalgia GERD (gastroesophageal reflux disease) Hyperlipidemia Rheumatoid arthritis ([facility]) Type II or unspecified type diabetes mellitus without mention of complication, not stated as uncontrolled ([facility]) New during admit: A1c 6.5 on 10/11/14 Social History Socioeconomic History Marital status: Tobacco Use Smoking status: Every Day Packs/day: 0.50 Types: Cigarettes Smokeless tobacco: Never Vaping Use Vaping Use: Never used Substance and Sexual Activity Alcohol use: No Drug use: No Past Surgical History: Procedure Laterality Date APPENDECTOMY CARDIAC CATHETERIZATION 10 11 2014 CHOLECYSTECTOMY COLON SURGERY 03 16 2013 approx; sigmoidectomy diverticulosis COLON SURGERY COLONOSCOPY 01 06 2013 colonic polyps, diverticulosis, hemorrhoids HYSTERECTOMY NECK SURGERY C5-C7 ACDF (Dr. Adam) TONSILLECTOMY AND ADENOIDECTOMY (HISTORICAL) TUBAL LIGATION UPPER GASTROINTESTINAL ENDOSCOPY 01 06 2013 see report Past Surgical History: Procedure Laterality Date APPENDECTOMY CARDIAC CATHETERIZATION 10 11 2014 CHOLECYSTECTOMY COLON SURGERY 03 16 2013 approx; sigmoidectomy diverticulosis COLON SURGERY COLONOSCOPY 01 06 2013 colonic polyps, diverticulosis, hemorrhoids HYSTERECTOMY NECK SURGERY C5-C7 ACDF (Dr. Adam) TONSILLECTOMY AND ADENOIDECTOMY (HISTORICAL) TUBAL LIGATION UPPER GASTROINTESTINAL ENDOSCOPY 01 06 2013 see report Family History Problem Relation Name Age of Onset Heart attack Mother Dementia Father Rheum arthritis Father Osteoporosis Father Atrial fibrillation Father Other ([id number]) Father CHF Heart attack Sister No Known Problems Brother No Known Problems Son No Known Problems Son Cancer Maternal Grandfather Leukemia Cancer Other unknown origin--2 aunts Diabetes Other grandmother Objective BP 125/77 Pulse 77 Ht 5' 7" (1.702 m) Wt 160 lb (72.6 kg) BMI 25.06 kg/m Physical Exam Vitals and nursing note reviewed. Constitutional: Appearance: Normal appearance. HENT: Head: Normocephalic and atraumatic. Right Ear: Tympanic membrane, ear canal and external ear normal. Left Ear: Tympanic membrane, ear canal and external ear normal. Nose: Nose normal. Mouth/Throat: Mouth: Mucous membranes are moist. Pharynx: Oropharynx is clear. Eyes: Extraocular Movements: Extraocular movements intact. Conjunctiva/sclera: Conjunctivae normal. Pupils: Pupils are equal, round, and reactive to light. Cardiovascular: Rate and Rhythm: Normal rate and regular rhythm. Pulses: Normal pulses. Heart sounds: Normal heart sounds. No murmur heard. Pulmonary: Effort: Pulmonary effort is normal. Breath sounds: Normal breath sounds. No wheezing. Abdominal: General: Abdomen is flat. Bowel sounds are normal. Palpations: Abdomen is soft. Tenderness: There is no abdominal tenderness. Musculoskeletal: General: Normal range of motion. Cervical back: Normal range of motion and neck supple. Skin: General: Skin is warm and dry. Capillary Refill: Capillary refill takes less than 2 seconds. Neurological: General: No focal deficit present. Mental Status: She is alert. Mental status is at baseline. Data Reviewed Labs: Imaging/Testing: Martir Keene MD 06/03/2022 10:09 PM documented in this [facility]12-30-2022 Instructions* Patient Instructions* Martir Keene MD - 06/01/2022 10:00 AM EST Personalized Preventative Plan for Chantal Linares - 06/01/2023 Medicare offers a range of preventative health benefits. Some of the tests and screenings are paid in full while others may be subject to a deductible, co- insurance, and / or copay. Some of these benefits include a comprehensive review of your medical history including lifestyle, illnesses that mayrun in your family, and various assessments and screenings as appropriate. After reviewing your medical record and screening and assessments performed today, your provider may have ordered immunizations, labs, imaging, and / or referrals for you. A list of these orders (if applicable) as well as your Preventative Care list are included within your After Visit Summary for your review. Other Preventative Recommendations: A preventive eye exam by an eyewear manufacturing supervisor is recommended every 1-2 years to screen for glaucoma, cataracts, macular degeneration, and other eye disorders. A preventive dental visit is recommended every 6 months. Try to get at least 150 minutes of exercise per week or 10,000 steps per day on a pedometer. You need 1200-1500mg of calcium and 4936-5562 international units of vitamin D per day. It is possible to meet your calcium requirement with diet alone, but a vitamin D supplement is usually necessary to meet this goal. When exposed to the sun, use a sunscreen that protects against both UVA and UVB radiation with an SPF of 30 or greater. Reapply every 2-3 hours or after sweating, drying off with a towel, or swimming. Always wear a seat belt when traveling in a car. Always wear a helmet when riding a bicycle or a motorcycle documented in this [facility]12-30-2022 Miscellaneous Notes* Result Encounter Note - Martir Keene MD - 06/01/2022 10:00 AM EST Done at the office visit. documented in this [facility]12-30-2022 Progress note* Result Encounter Note - Martir Keene MD - 06/01/2022 10:00 AM EST Done at the office visit. [facility]10-28-2022 NoteHNO ID: [id number] Author: RT Niyah(R) Service: Radiology Author Type: Agency Sales Director Type: Progress Notes Filed: 03/30/2022 2:44 PM Note Text: Radiology Service Progress Note PATIENT NAME: Chantal Linares DATE OF SERVICE: March 30, 2022 TIME: 2:43 PM PATIENT IDENTITY VERIFICATION COMPLETED USING TWO (2) IDENTIFIERS: Name and Date of confirmed by patient verbally. FALL SCREENING: Has the patient had 2 falls in the last year or 1 fall with injury or currently using an Ambulatory Assistive Device (Walker, Cane, Wheelchair, Crutches, etc.)? No PATIENT GENDER DATA: Female. status: : No status: NO. PATIENT RELEVANT IMPLANT DATA REVIEWED: Yes RADIOLOGY DEPARTMENT: CT; Exam(s) Completed: Abdomen/Pelvis PERIPHERAL IV DATA: Site assessment: Clean,Dry and Intact, Site disposition Discontinued SIGNED BY: Swetha Reeves RT(R) March 30, 2022 2:43 [facility]10-28-2022 NoteHNO ID: [id number] Author: Charlene Villalba RN Service: Radiology Author Type: Registered Nurse Type: Progress Notes Filed: 03/30/2022 2:23 PM Note Text: Radiology Service Progress Note DATE OF SERVICE: March 30, 2022 TIME: 2:23 PM PATIENT WEIGHT: 161 LBS PATIENT IDENTITY VERIFICATION COMPLETED USING TWO (2) STANDARD IDENTIFIERS: Name and Date of confirmed by patient verbally. FALL SCREENING: Has the patient had 2 falls in the last year or 1 fall with injury or currently using an Ambulatory Assistive Device (Walker, Cane, Wheelchair, Crutches, etc.)? No PATIENT GENDER DATA: Female. status: : No status: NO. ALLERGIES: Reviewed and unchanged CONTRAST ALLERGY: No EXAM: CT -CONTRAST INDUCED NEPHROPATHY RISK FACTORS: Patient age > 60 years CREATININE: Creatinine Date Value Ref Range Status 03/24/2022 0.53 (L) 0.58 - 0.96 mg/dL Final 07/17/2019 0.54 (L) 0.58 - 0.96 mg/dL Final Creatinine (POCT) Date Value Ref Range Status 07/20/2019 0.50 (A) 0.6 - 1.3 mg/dL Final Estimated Glomerular Filtration Rate Date Value Ref Range Status 03/24/2022 98 >=60 mL/min/1.73m? Final Comment: Estimated Glomerular Filtration Rate (eGFR) is calculated using the 2020 CKD-EPI creatinine equation. This equation utilizes serum creatinine, sex, and age as parameters. The creatinine assay has traceable calibration to isotope dilution-mass spectrometry. Refer to KDIGO guidelines for clinical interpretation. In patients with unstable renal function, e.g. those with acute kidney injury, the eGFR may not accurately reflect actual GFR. eGFR- (POCT) Date Value Ref Range Status 07/20/2019 >60 mL/min/1.73 m2 Final P.O.C.T. RESULTS: N/A March 30, 2022 TREATMENT: No Hydration needed. IV SITE: Ambulatory: A peripheral IV was started in the Left antecubital site with a Angio cath: 20 gauge. and A Saline lock was inserted per protocol IV SITE APPEARANCE: Clean,Dry and Intact SIGNATURE: Charlene Villalba RN PATIENT NAME: Chantal Linares DATE: March 30, 2022 TIME: 2:23 [facility] note* Diagnosis Hip pain Pain in joint, pelvic region and thigh [facility] Work Phone: Evaluation note* Diagnosis Left upper quadrant pain Abdominal pain, left upper quadrant Left lower quadrant pain Abdominal pain, left lower quadrant Generalized abdominal pain Abdominal pain, generalized Left upper quadrant abdominal pain Left lower quadrant abdominal pain documented in this encounter [facility] Work Phone: Evaluation note* Diagnosis Arthritis of right ankle Unspecified arthropathy, ankle and foot Posterior tibial tendon dysfunction (PTTD) of right lower extremity [facility] Work Phone: Evaluation note* Diagnosis Peroneal tendon tear, right, initial encounter- [facility] Tear of peroneal tendon, right, sequela- Primary [facility] Diagnosis Right knee pain, unspecified chronicity- Primary documented in this encounter [facility] note* Diagnosis Right knee pain, unspecified chronicity- Primary Medial collateral ligament sprain of knee [facility] [place] [facility] Diagnosis Right knee pain, unspecified chronicity documented in this encounter [facility] note* Diagnosis Tear of peroneal tendon, right, sequela- Primary [facility] [place] [facility]* Diagnosis Tear of peroneal tendon, right, sequela- Primary documented in this encounter [facility] note* Diagnosis Tear of peroneal tendon, right, sequela- Primary [facility] [place] [facility]* Diagnosis Pain of left sacroiliac joint- Primary Lumbar spondylosis Lumbosacral spondylosis without myelopathy documented in this encounter [facility] note* Diagnosis Hyperlipidemia, unspecified hyperlipidemia type documented in this encounter [facility] note* Diagnosis COVID-19 virus infection- Primary [facility] [place] [facility]* Diagnosis Chronic pain of right ankle- Primary documented in this encounter [facility] note* Diagnosis COPD with acute exacerbation ([facility])- Primary Nausea Nausea alone documented in this encounter [facility] note* Diagnosis Tear of peroneal tendon, right, sequela [facility] [place] [facility]* Diagnosis Tear of peroneal tendon, right, sequela- Primary Osteochondral defect of ankle [facility] [place] [facility]* Diagnosis Tinnitus of both ears- Primary Unspecified tinnitus Diabetic on diet only ([facility]) ([facility]) documented in this encounter [facility] note* Diagnosis Spinal stenosis, lumbar region with neurogenic claudication- Primary documented in this encounter [facility] note* Diagnosis Viral illness- Primary Unspecified viral infection, in conditions classified elsewhere and of unspecified site [facility] Diagnosis Pain in right wrist Pain in joint, forearm [facility] [place] [facility]* Diagnosis Pain in left hand Pain in left wrist Pain in joint, forearm [facility] Diagnosis Bilateral hand pain- Primary Weakness of both hands Rheumatoid arthritis involving multiple sites, unspecified whether rheumatoid factor present ([facility]) documented in this encounter [facility] note* Diagnosis Bilateral hand pain Weakness of both hands [facility] Diagnosis Numbness and tingling in both hands- Primary Weakness of both hands Carpal tunnel syndrome, right Carpal tunnel syndrome Chronic neck pain with history of cervical spinal surgery Cervical radiculopathy Brachial neuritis or radiculitis nos Rheumatoid arthritis involving multiple sites, unspecified whether rheumatoid factor present (HCC) [facility] Diagnosis Chronic neck pain with history of cervical spinal surgery Cervical radiculopathy Brachial neuritis or radiculitis nos [facility]* Diagnosis Chronic neck pain with history of cervical spinal surgery- Primary Cervical radiculopathy Brachial neuritis or radiculitis nos Balance problems Abnormality of gait [facility]* Diagnosis Chronic neck pain with history of cervical spinal surgery Cervical radiculopathy Brachial neuritis or radiculitis nos Balance problems Abnormality of gait [facility]* Diagnosis History of cigarette smoking- Primary [facility]* Diagnosis History of cigarette smoking- Primary [facility]* Diagnosis History of cigarette smoking- Primary [facility]* Diagnosis Pain in right wrist- Primary Pain in joint, forearm [facility]* Diagnosis History of cigarette smoking- Primary Radiculopathy, cervical region Brachial neuritis or radiculitis nos Cervicalgia [facility]* Diagnosis Pain in left hand- Primary Pain in left wrist Pain in joint, forearm Radiculopathy, cervical region Brachial neuritis or radiculitis nos Cervicalgia [facility]* Diagnosis Cervical stenosis of spinal canal- Primary Spinal stenosis in cervical region Cervical stenosis of spinal canal Spinal stenosis in cervical region [facility]* Diagnosis Cervical stenosis of spinal canal Spinal stenosis in cervical region [facility]* Diagnosis Cervical stenosis of spinal canal- Primary Spinal stenosis in cervical region [facility]* Diagnosis Cervical stenosis of spinal canal- Primary Spinal stenosis in cervical region Dysphagia, oropharyngeal Dysphagia, oropharyngeal phase [facility]* Diagnosis Cervical stenosis of spinal canal Spinal stenosis in cervical region [facility]* Diagnosis Routine general medical examination at health care facility- Primary Routine general medical examination at a health care facility COPD, moderate (CMS/HCC) (HCC) Diabetic on diet only (CMS/HCC) (HCC) Mixed hyperlipidemia Scalp psoriasis Other psoriasis Anxiety Anxiety state, unspecified [facility]* Diagnosis Left hip pain- Primary Pain in joint, pelvic region and thigh [facility]* Diagnosis Chronic left SI joint pain- Primary Disorders of sacrum Left hip pain Pain in joint, pelvic region and thigh Trochanteric bursitis of left hip [facility]* Diagnosis Left hip pain Pain in joint, pelvic region and thigh [facility]* Diagnosis Left hip pain Pain in joint, pelvic region and thigh Other specified acquired deformities of musculoskeletal system [facility]* Diagnosis Hyperlipidemia, unspecified hyperlipidemia type [facility]* Diagnosis Routine general medical examination at health care facility- Primary Routine general medical examination at a health care facility Mixed hyperlipidemia Diabetic on diet only (CMS/HCC) (HCC) Cervical myelopathy (HCC) Cervical spondylosis with myelopathy Chronic obstructive pulmonary disease, unspecified COPD type (HCC) Anxiety Anxiety state, unspecified Encounter for screening mammogram for breast cancer Personal history of tobacco use, presenting hazards to health Gait instability Abnormality of gait Arthritis, multiple joint involvement Unspecified arthropathy, multiple sites Vaccine refused by patient Tobacco use disorder [facility]* Diagnosis Routine general medical examination at health care facility- Primary Routine general medical examination at a health care facility Mixed hyperlipidemia Diabetic on diet only (CMS/HCC) (HCC) Cervical myelopathy (HCC) Cervical spondylosis with myelopathy Chronic obstructive pulmonary disease, unspecified COPD type (HCC) Anxiety Anxiety state, unspecified Encounter for screening mammogram for breast cancer Personal history of tobacco use, presenting hazards to health Gait instability Abnormality of gait Arthritis, multiple joint involvement Unspecified arthropathy, multiple sites Vaccine refused by patient Tobacco use disorder Cervical stenosis of spinal canal Spinal stenosis in cervical region [facility]* Diagnosis Routine general medical examination at health care facility- Primary Routine general medical examination at a health care facility Mixed hyperlipidemia Diabetic on diet only (CMS/HCC) (HCC) Cervical myelopathy (HCC) Cervical spondylosis with myelopathy Chronic obstructive pulmonary disease, unspecified COPD type (HCC) Anxiety Anxiety state, unspecified Encounter for screening mammogram for breast cancer Personal history of tobacco use, presenting hazards to health Gait instability Abnormality of gait Arthritis, multiple joint involvement Unspecified arthropathy, multiple sites Vaccine refused by patient Tobacco use disorder Cervical radiculopathy- Primary Brachial neuritis or radiculitis nos [facility]* Diagnosis Routine general medical examination at health care facility- Primary Routine general medical examination at a health care facility Mixed hyperlipidemia Diabetic on diet only (CMS/HCC) (HCC) Cervical myelopathy (HCC) Cervical spondylosis with myelopathy Chronic obstructive pulmonary disease, unspecified COPD type (HCC) Anxiety Anxiety state, unspecified Encounter for screening mammogram for breast cancer Personal history of tobacco use, presenting hazards to health Gait instability Abnormality of gait Arthritis, multiple joint involvement Unspecified arthropathy, multiple sites Vaccine refused by patient Tobacco use disorder Encounter for screening mammogram for breast cancer [facility]* Diagnosis Routine general medical examination at health care facility- Primary Routine general medical examination at a health care facility Mixed hyperlipidemia Diabetic on diet only (CMS/HCC) (HCC) Cervical myelopathy (HCC) Cervical spondylosis with myelopathy Chronic obstructive pulmonary disease, unspecified COPD type (HCC) Anxiety Anxiety state, unspecified Encounter for screening mammogram for breast cancer Personal history of tobacco use, presenting hazards to health Gait instability Abnormality of gait Arthritis, multiple joint involvement Unspecified arthropathy, multiple sites Vaccine refused by patient Tobacco use disorder Other specified diseases of liver 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 Gastro-esophageal reflux disease without esophagitis History of colon polyps [facility]* Diagnosis Routine general medical examination at health care facility- Primary Routine general medical examination at a health care facility Mixed hyperlipidemia Diabetic on diet only (CMS/HCC) (HCC) Cervical myelopathy (HCC) Cervical spondylosis with myelopathy Chronic obstructive pulmonary disease, unspecified COPD type (HCC) Anxiety Anxiety state, unspecified Encounter for screening mammogram for breast cancer Personal history of tobacco use, presenting hazards to health Gait instability Abnormality of gait Arthritis, multiple joint involvement Unspecified arthropathy, multiple sites Vaccine refused by patient Tobacco use disorder Personal history of tobacco use, presenting hazards to health [facility] noteNo assessment information availableW[facility] Work Phone: Evaluation note* Diagnosis Routine general medical examination at health care facility- Primary Routine general medical examination at a health care facility Mixed hyperlipidemia Diabetic on diet only (CMS/HCC) (HCC) Cervical myelopathy (HCC) Cervical spondylosis with myelopathy Chronic obstructive pulmonary disease, unspecified COPD type (HCC) Anxiety Anxiety state, unspecified Encounter for screening mammogram for breast cancer Personal history of tobacco use, presenting hazards to health Gait instability Abnormality of gait Arthritis, multiple joint involvement Unspecified arthropathy, multiple sites Vaccine refused by patient Tobacco use disorder Other specified diseases of liver- Primary 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 Gastro-esophageal reflux disease without esophagitis [facility]* Diagnosis Routine general medical examination at health care facility- Primary Routine general medical examination at a health care facility Mixed hyperlipidemia Diabetic on diet only (CMS/HCC) (HCC) Cervical myelopathy (HCC) Cervical spondylosis with myelopathy Chronic obstructive pulmonary disease, unspecified COPD type (HCC) Anxiety Anxiety state, unspecified Encounter for screening mammogram for breast cancer Personal history of tobacco use, presenting hazards to health Gait instability Abnormality of gait Arthritis, multiple joint involvement Unspecified arthropathy, multiple sites Vaccine refused by patient Tobacco use disorder Other specified diseases of liver- Primary 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 Gastro-esophageal reflux disease without esophagitis History of colon polyps Other specified diseases of liver 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 Gastro-esophageal reflux disease without esophagitis History of colon polyps documented in this encounter [facility] for referral (narrative)* Consultation (Routine) - Pending Review Specialty Diagnoses / Procedures Referred By Shanita espinal Referred To Contact Rheumatology Diagnoses Rheumatoid arthritis involving multiple sites, unspecified whether rheumatoid factor present (HCC) Procedures DE OFFICE/OUTPATIENT [facility] 60 MINUTES Jake Franco MD [address] [place] [address] [facility] [address] [place] [address] Referral ID Status Reason Start Date Expiration Date Visits Requested Visits Authorized [id number] Pending Review Specialty Services Required 01/31/2024 01/30/2025 1 1 * Imaging (Routine) - Pending Review Specialty Diagnoses / Procedures Referred By Contac t Referred To Contact Radiology Diagnoses Chronic neck pain with history of cervical spinal surgery Cervical radiculopathy Procedures MR cervical spine w and wo contrast Jake Franco MD [address] [place] [address] Referral ID Status Reason Start Date Expiration Date V isits Requested Visits Authorized [id number] Pending Review 01/31/2024 01/30/2025 1 1 [facility] for referral (narrative)* Consultation (Routine) - Pending Review Specialty Diagnoses / Procedures Referred By Contac t Referred To Contact Sports Medicine Diagnoses Left hip pain Procedures DE OFFICE/OUTPATIENT [facility] 60-74 MINUTES Jian Mayberry MD [address] [facility] [address] [place] [address] [facility] [address] [facility] [address] [place] [address] Referral ID Status Reason Start Date Expiration Date Visits Requested Visits Authorized [id number] Pending Review Specialty Services Required 08/06/2022 08/06/2023 1 1 Scheduling Instructions Left hip USG SI injection [facility] for referral (narrative)No reason for referral information availableWMetro[facility] Work Phone: Reason for visit Narrative* Auth/Cert (Routine) Specialty Diagnoses / Procedures Referred By Contac t Referred To Contact Diagnoses Radiculopathy, cervical region Cervicalgia Procedures DE ARTHRD ANT INTERBODY DECOMPRESS CERVICAL BELW C2 DE ANTERIOR INSTRUMENTATION 2-3 VERTEBRAL SEGMENTS DE INSJ BIOMCHN DEV INTERVERTEBRAL DSC SPC W/ARTHRD CERVICAL 4-5 ANTERIOR CERVICAL DECOMPRESSION, FUSION, REMOVAL OF HARDWARE CERVICAL 5-7 German Dietz MD [address] [place] [address] Phone: tel: fax: Referral ID Status Reason Start Date Expiration Date Visits Re quested Visits Authorized [id number] 03/06/2024 1 1 [facility] for visit Narrative* Imaging (Routine) - Closed Specialty Diagnoses / Procedures Referred By Contac t Referred To Contact Radiology Diagnoses Personal history of tobacco use, presenting hazards to health Procedures CT lung screening low dose Martir Keene MD [facility] [address] [place] [address] Phone: tel: fax: Referral ID Status Reason Start Date Expiration Date Visits Re quested Visits Authorized [id number] Closed 07/29/2024 07/29/2025 1 1 [facility] Summary Purpose Family History No Family History Records Found Relationship Condition Age at Onset Recorded Date/T adia mother Cardiac disease Unknown Malignant neoplasm Unknown Myocardial infarction 45 sister Cardiac disease Unknown Myocardial infarction 40 grandmother Diabetes mellitus Unknown aunt Malignant neoplasm of breast Unknown Advance Directives No Advanced Directives Records FoundDocuments on File Type Date Recorded 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 Advance Directives and Living Will Power of Computing Systems Mechanic Documents on File Type Date Recorded 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 Advance Directives and Living Will Power of Computing Systems Mechanic Documents on File Type Date Recorded 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 ACP-Advance Directive ACP-Power of Computing Systems Mechanic Documents on File Type Date Recorded 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 ACP-Advance Directive ACP-Power of Computing Systems Mechanic Date Activated Date Inactivated Comments 04/14/2024 3:28 PM 04/15/2024 5:18 PM Date Activated Date Inactivated Comments 04/14/2024 3:28 PM 04/15/2024 5:18 PM Reason for Referral Status Reason Specialty Diagnoses / Procedures Referred By Contact Referred To Contact Authorized Radiology Diagnoses Personal history of nicotine dependence COPD, moderate (HCC) Procedures CT Lung Screening (Annual) Alan Glasgow MD [facility], [address] [place] [address] Status Reason Specialty Diagnoses / Procedures Referred By Contact Referred To Contact Authorized Radiology Diagnoses Cervical myelopathy (HCC) Procedures MRI Cervical Spine WO Contrast Anthony White MD 1 [facility] [address] [place] [address] Specialty Diagnoses / Procedures Referred By Contac t Referred To Contact Radiology Diagnoses Generalized abdominal pain Left upper quadrant abdominal pain Left lower quadrant abdominal pain Procedures CT ABDOMEN PELVIS WO CONTRAST Additional Contrast? None Akosua Reyes, OPERATIONS AGENT - ELECTRIC CELL TENDER [address] [facility] [address] [place] [address] Referral ID Status Reason Start Date Expiration Date V isits Requested Visits Authorized [id number] Pending Review 12/05/2021 12/05/2022 1 1 Specialty Diagnoses / Procedures Referred By Contac t Referred To Contact Diagnoses Peroneal tendon tear, right, initial encounter Josie Hairston PA 1 [facility] [address] [place] [address] Referral ID Status Reason Start Date Expiration Date V isits Requested Visits Authorized [id number] Pending Review 1 1 Specialty Diagnoses / Procedures Referred By Contac t Referred To Contact Physical Therapy Diagnoses Tear of peroneal tendon, right, sequela Procedures DE OFFICE/OUTPATIENT [facility] 60-74 MINUTES Jun Jimenez MD 1 [facility] [address] [place] [address] Referral ID Status Reason Start Date Expiration Date Visits Requested Visits Authorized [id number] Pending Review Eval and Treat 09/26/2022 03/25/2023 99 99 Specialty Diagnoses / Procedures Referred By Contac t Referred To Contact Physical Therapy Diagnoses Tear of peroneal tendon, right, sequela Procedures DE OFFICE/OUTPATIENT [facility] 60-74 MINUTES Josie Hairston PA 1 [facility] [address] [place] [address] Referral ID Status Reason Start Date Expiration Date Visits Requested Visits Authorized [id number] Pending Review Eval and Treat 11/09/2022 05/08/2023 99 99 Scheduling Instructions OK for therapy out of brace in a regular shoe RROM AROM AAROM PROM HEP Modalities Specialty Diagnoses / Procedures Referred By Contac t Referred To Contact Neurology Diagnoses Bilateral hand pain Weakness of both hands Procedures NERVE CONDUCTION TEST WITH EMG Jake Franco MD [address] [place] [address] Referral ID Status Reason Start Date Expiration Date V isits Requested Visits Authorized [id number] Authorized 01/10/2024 01/04/2025 1 1 Referral ID Status Reason Start Date Expiration Date Visits Re quested Visits Authorized [id number] Closed 01/10/2024 01/04/2025 1 1 Specialty Diagnoses / Procedures Referred By Contac t Referred To Contact Radiology Diagnoses Chronic neck pain with history of cervical spinal surgery Cervical radiculopathy Procedures MR cervical spine w and wo contrast Jake Franco MD [address] [place] [address] [facility] [address] [facility] [address] [place] [address] Referral ID Status Reason Start Date Expiration Date Visits Re quested Visits Authorized [id number] Closed 02/04/2024 04/04/2024 1 1 Specialty Diagnoses / Procedures Referred By Contac t Referred To Contact Physical Therapy Diagnoses Chronic neck pain with history of cervical spinal surgery Cervical radiculopathy Balance problems Procedures DE OFFICE/OUTPATIENT [facility] 60 MINUTES Jake Franco MD [address] [place] [address] Referral ID Status Reason Start Date Expiration Date Visits Requested Visits Authorized [id number] Pending Review Eval and Treat 02/19/2024 08/17/2024 99 99 Scheduling Instructions Physical Therapy [address] [address] Specialty Diagnoses / Procedures Referred By Contac t Referred To Contact Neurosurgery Diagnoses Chronic neck pain with history of cervical spinal surgery Cervical radiculopathy Balance problems Jake Franco MD [address] [place] [address] German Dietz MD [address] [place] [phone] Referral ID Status Reason Start Date Expiration Date Visits Requested Visits Authorized [id number] Pending Review Specialty Services Required 02/19/2024 02/18/2025 1 1 Specialty Diagnoses / Procedures Referred By Shanita t Referred To Contact Diagnoses COPD, moderate (CMS/HCC) (HCC) Martir Keene MD [address] [facility] [address] [place] [address] Referral ID Status Reason Start Date Expiration Date V isits Requested Visits Authorized [id number] Pending Review 1 1 Assessments Diagnosis Personal history of nicotine dependence Personal history of tobacco use, presenting hazards to health COPD, moderate (HCC) Chronic airway obstruction, not elsewhere classified Diagnosis Encounter for screening mammogram for breast cancer Diagnosis Cervical myelopathy (HCC) Cervical spondylosis with myelopathy Chief Complaint and Reason for Visit Chief Complaint Admit Date 4 M FU September 29, 2024 1:5 3pm E ORDER October 07, 2024 10:22a m Reason for Visit Admit Date Atherosclerosis of coronary artery of muscogee heart without angina pectoris September 29, 2024 1:53pm Diastolic dysfunction September 29, 2024 1 :53pm Essential hypertension September 29, 2024 1:53pm Hyperlipidemia September 29, 2024 1:5 3pm Palpitations September 29, 2024 1:5 3pm Chief Complaint Admit Date 4 M FU September 29, 2024 1:5 3pm E ORDER October 07, 2024 10:22a m COUGH, SORE THROAT November 30, 2024 2:06 pm Chief Complaint Admit Date 4 M FU September 29, 2024 1:5 3pm E ORDER October 07, 2024 10:22a m COUGH, SORE THROAT November 30, 2024 2:06 pm Leg Pain January 25, 2025 2: 27pm Chief Complaint Admit Date E ORDER October 07, 2024 10:22a m COUGH, SORE THROAT November 30, 2024 2:06 pm Leg Pain January 25, 2025 2: 27pm Additional Source Comments INFORMATION SOURCE (unrecogn ized section and content) DATE CREATED AUTHOR 11/22/2017 [facility] DATE CREATED AUTHOR AUTHOR'S ORGANIZ ATION 11/26/2017 [facility] DATE CREATED AUTHOR AUTHOR'S ORGANIZ ATION 07/17/2019 [facility] DATE CREATED AUTHOR AUTHOR'S ORGANIZ ATION 02/25/2021 [facility] DATE CREATED AUTHOR AUTHOR'S ORGANIZ ATION 03/03/2022 [facility] DATE CREATED AUTHOR AUTHOR'S ORGANIZ ATION 03/28/2022 [facility] DATE CREATED AUTHOR AUTHOR'S ORGANIZ ATION 04/03/2022 [facility] DATE CREATED AUTHOR AUTHOR'S ORGANIZ ATION 11/12/2024 [facility] DATE CREATED AUTHOR AUTHOR'S ORGANIZ ATION 02/25/2025 [facility] (unrecognized sec tion and content) Insurance Claims Adjuster Relationship Specialty Start Date End Date Martir Keene MD [address] [place], [place] [id number] PCP - General Family Medicine 01/19/19 Insurance Claims Adjuster Relationship Specialty Start Date End Date Martir Keene MD [address] [place] [address] PCP - General Family Medicine 01/19/19 Insurance Claims Adjuster Relationship Specialty Start Date End Date Martir Keene MD [address] [place] [address] PCP - General Family Medicine 01/19/19 Insurance Claims Adjuster Relationship Specialty Start Date End Date Martir Keene MD [address] [place] [address] PCP - General Family Medicine 01/19/19 Insurance Claims Adjuster Relationship Specialty Start Date End Date Martir Keene MD [address] [place] [address] PCP - General 01/19/19 Insurance Claims Adjuster Relationship Specialty Start Date End Date Martir Keene MD [address] [place] [address] PCP - General 01/19/19 Insurance Claims Adjuster Relationship Specialty Start Date End Date Martir Keene MD [address] [place] [address] PCP - General 01/19/19 Insurance Claims Adjuster Relationship Specialty Start Date End Date Martir Keene MD [address] [place] [address] PCP - General 01/19/19 Insurance Claims Adjuster Relationship Specialty Start Date End Date Martir Keene MD [address] [place] [address] PCP - General 01/19/19 Insurance Claims Adjuster Relationship Specialty Start Date End Date Martir Keene MD [address] [place] [address] PCP - General 01/19/19 Insurance Claims Adjuster Relationship Specialty Start Date End Date Martir Keene MD [address] [place] [address] PCP - General 01/19/19 Insurance Claims Adjuster Relationship Specialty Start Date End Date Martir Keene MD [address] [place] [address] PCP - General 01/19/19 Insurance Claims Adjuster Relationship Specialty Start Date End Date Martir Keene MD [address] [place] [address] PCP - General 01/19/19 Insurance Claims Adjuster Relationship Specialty Start Date End Date Martir Keene MD [address] [place] [address] PCP - General 01/19/19 Insurance Claims Adjuster Relationship Specialty Start Date End Date Martir Keene MD [address] [place] [address] PCP - General 01/19/19 Insurance Claims Adjuster Relationship Specialty Start Date End Date Martir Keene MD [address] [place] [address] PCP - General 01/19/19 Insurance Claims Adjuster Relationship Specialty Start Date End Date Martir Keene MD [address] [place] [address] PCP - General 01/19/19 Insurance Claims Adjuster Relationship Specialty Start Date End Date Martir Keene MD [address] [place] [address] PCP - General 01/19/19 Insurance Claims Adjuster Relationship Specialty Start Date End Date Martir Keene MD [address] [place] [address] PCP - General 01/19/19 Insurance Claims Adjuster Relationship Specialty Start Date End Date Martir Keene MD [address] [place] [address] PCP - General 01/19/19 Insurance Claims Adjuster Relationship Specialty Start Date End Date Martir Keene MD [address] [place] [address] PCP - General 01/19/19 Insurance Claims Adjuster Relationship Specialty Start Date End Date Martir Keene MD [address] [place] [address] PCP - General 01/19/19 Insurance Claims Adjuster Relationship Specialty Start Date End Date Martir Keene MD [address] [place] [address] PCP - General 01/19/19 Insurance Claims Adjuster Relationship Specialty Start Date End Date Martir Keene MD [address] [place] [address] PCP - General 01/19/19 Insurance Claims Adjuster Relationship Specialty Start Date End Date Martir Keene MD [address] [place] [address] PCP - General 01/19/19 Insurance Claims Adjuster Relationship Specialty Start Date End Date Martir Keene MD [address] [place] [address] PCP - General 01/19/19 Insurance Claims Adjuster Relationship Specialty Start Date End Date Martir Keene MD [address] [place] [address] PCP - General 01/19/19 Insurance Claims Adjuster Relationship Specialty Start Date End Date Martir Keene MD [address] [place] [address] PCP - General 01/19/19 Insurance Claims Adjuster Relationship Specialty Start Date End Date Martir Keene MD [address] [place] [address] PCP - General 01/19/19 Insurance Claims Adjuster Relationship Specialty Start Date End Date Martir Keene MD [address] [place] [address] PCP - General 01/19/19 Insurance Claims Adjuster Relationship Specialty Start Date End Date Martir Keene MD [address] [place] [address] PCP - General 01/19/19 Insurance Claims Adjuster Relationship Specialty Start Date End Date Martir Keene MD [address] [place] [address] PCP - General 01/19/19 Insurance Claims Adjuster Relationship Specialty Start Date End Date Martir Keene MD [address] [place] [address] PCP - General 01/19/19 Insurance Claims Adjuster Relationship Specialty Start Date End Date Martir Keene MD [address] [place] [address] PCP - General 01/19/19 Insurance Claims Adjuster Relationship Specialty Start Date End Date Martir Keene MD [address] [place] [address] PCP - General 01/19/19 Insurance Claims Adjuster Relationship Specialty Start Date End Date Martir Keene MD [address] [place] [address] PCP - General 01/19/19 Insurance Claims Adjuster Relationship Specialty Start Date End Date Martir Keene MD [address] [place] [address] PCP - General 01/19/19 Insurance Claims Adjuster Relationship Specialty Start Date End Date Martir Keene MD [address] [place] [address] PCP - General 01/19/19 Insurance Claims Adjuster Relationship Specialty Start Date End Date Martir Keene MD [address] [place] [address] PCP - General 01/19/19 Insurance Claims Adjuster Relationship Specialty Start Date End Date Martir Keene MD [address] [place] [address] PCP - General 01/19/19 Insurance Claims Adjuster Relationship Specialty Start Date End Date Martir Keene MD [address] [place] [address] PCP - General 01/19/19 Insurance Claims Adjuster Relationship Specialty Start Date End Date Martir Keene MD [address] [place] [address] PCP - General 01/19/19 Insurance Claims Adjuster Relationship Specialty Start Date End Date Martir Keene MD [address] [place] [address] PCP - General 01/19/19 Insurance Claims Adjuster Relationship Specialty Start Date End Date Martir Keene MD [address] [place] [address] PCP - General 01/19/19 Insurance Claims Adjuster Relationship Specialty Start Date End Date Martir Keene MD [address] [place] [address] PCP - General 01/19/19 Insurance Claims Adjuster Relationship Specialty Start Date End Date Martir Keene MD [address] [place] [address] PCP - General 01/19/19 Insurance Claims Adjuster Relationship Specialty Start Date End Date Martir Keene MD [address] [place] [address] PCP - General 01/19/19 Insurance Claims Adjuster Relationship Specialty Start Date End Date Martir Keene MD [address] [place] [address] PCP - General 01/19/19 Insurance Claims Adjuster Relationship Specialty Start Date End Date Martir Keene MD [address] [place] [address] PCP - General 01/19/19 Insurance Claims Adjuster Relationship Specialty Start Date End Date Martir Keene MD [address] [place] [address] PCP - General 01/19/19 Insurance Claims Adjuster Relationship Specialty Start Date End Date Martir Keene MD [address] [place] [address] PCP - General 01/19/19 Insurance Claims Adjuster Relationship Specialty Start Date End Date Martir Keene MD [address] [place] [address] PCP - General 01/19/19 Insurance Claims Adjuster Relationship Specialty Start Date End Date Martir Keene MD [address] [place] [address] PCP - General 01/19/19 Team Status: Active Member Role Status Dates MARTIR KEENE Family Provider Active Dr. Martir Keene MD Primary Care Provider Active Team Status: Inactive Member Role Status Dates Dr. Martir Keene MD Primary Care Provider Active Start: September 29, 2024 End: September 29, 2024 Dr. Martir Keene MD Referring Provider Active S tart: September 29, 2024 End: September 29, 2024 JARED Zee Attending Provider Active St art: September 29, 2024 End: September 29, 2024 Team Status: Inactive Member Role Status Dates Dr. aMrtir Keene MD Primary Care Provider Active Start: October 07, 2024 End: October 07, 2024 JARED Zee Attending Provider Active St art: October 07, 2024 End: October 07, 2024 JARED Zee Referring Provider Active St art: October 07, 2024 End: October 07, 2024 Insurance Claims Adjuster Relationship Specialty Start Date End Date Martir Keene MD [address] [place] [address] PCP - General 01/19/19 Team Status: Active Member Role/Relationship Status Dates MARTIR KEENE Family Provider Active Dr. Martir Keene MD Primary Care Provider Active Team Status: Inactive Member Role/Relationship Status Dates Dr. Martir Keene MD Primary Care Provider Active Start: September 29, 2024 End: September 29, 2024 Dr. Martir Keene MD Referring Provider Active S tart: September 29, 2024 End: September 29, 2024 JARED Zee Attending Provider Active St art: September 29, 2024 End: September 29, 2024 Team Status: Inactive Member Role/Relationship Status Dates Dr. Martir Keene MD Primary Care Provider Active Start: October 07, 2024 End: October 07, 2024 JARED Zee Attending Provider Active St art: October 07, 2024 End: October 07, 2024 JARED Zee Referring Provider Active St art: October 07, 2024 End: October 07, 2024 Team Status: Inactive Member Role/Relationship Status Dates Dr. Martir Keene MD Primary Care Provider Active Start: November 30, 2024 End: November 30, 2024 Dr. Martir Keene MD Referring Provider Active S tart: November 30, 2024 End: November 30, 2024 Silver COLEMAN PA Attending Provider Active Start: November 30, 2024 End: November 30, 2024 Team Status: Inactive Member Role/Relationship Status Dates Dr. Martir Keene MD Primary Care Provider Active Start: January 25, 2025 End: January 25, 2025 Dr. Martir Keene MD Referring Provider Active S tart: January 25, 2025 End: January 25, 2025 JARED Zee Attending Provider Active St art: January 25, 2025 End: January 25, 2025 Team Status: Inactive Member Role/Relationship Status Dates Dr. Martir Keene MD Primary Care Provider Active Start: October 07, 2024 End: October 07, 2024 JARED Zee Attending Provider Active St art: October 07, 2024 End: October 07, 2024 JARED Zee Referring Provider Active St art: October 07, 2024 End: October 07, 2024 Team Status: Inactive Member Role/Relationship Status Dates Dr. Martir Keene MD Primary Care Provider Active Start: November 30, 2024 End: November 30, 2024 Dr. Martir Keene MD Referring Provider Active S tart: November 30, 2024 End: November 30, 2024 Silver COLEMAN PA Attending Provider Active Start: November 30, 2024 End: November 30, 2024 Team Status: Inactive Member Role/Relationship Status Dates Dr. Martir Keene MD Primary Care Provider Active Start: January 25, 2025 End: January 25, 2025 Dr. Martir Keene MD Referring Provider Active S tart: January 25, 2025 End: January 25, 2025 JARED Zee Attending Provider Active St art: January 25, 2025 End: January 25, 2025 Team Status: Inactive Member Role/Relationship Status Dates Dr. Martir Keene MD Primary Care Provider Active Start: January 25, 2025 End: January 25, 2025 JARED Zee Attending Provider Active St art: January 25, 2025 End: January 25, 2025 JARED Zee Referring Provider Active St art: January 25, 2025 End: January 25, 2025 Insurance Claims Adjuster Relationship Specialty Start Date End Date Martir Keene MD [address] [place] [address] PCP - General 01/19/19 Insurance Claims Adjuster Relationship Specialty Start Date End Date Martir Keene MD [address] [facility] [address] [place] [address] PCP - General 01/19/19 Reason for Visit (unrecogniz ed section and content) Specialty Diagnoses / Procedures Referred By Shanita espinal Referred To Contact Diagnoses Other specified acquired deformities of musculoskeletal system Other specified acquired deformities of musculoskeletal system [M95.8] Procedures DE REPAIR FLEXOR TENDON LEG PRIMARY W/O GRAFT EACH DE ARTHRS ANKLE EXC OSTCHNDRL DFCT W/DRLG DFCT Right repair peroneal tendon, and ankle arthroscopic debridement talar osteochondral lesion ARTHROSCOPY ANKLE EXCISION 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 Reason Comments Follow-up NTP: Right knee pain and popping Reason Comments Post-op Peroneal Tendon Reason Onset Date Comments Other 08/13/2022 Clarify orders Reason Comments Procedure USG Left SI Joint In jection Specialty Diagnoses / Procedures Referred By hSanita espinal Referred To Contact Sports Medicine Diagnoses Left hip pain Procedures DE OFFICE/OUTPATIENT [facility] 60-74 MINUTES Jian Mayberry MD [address] [facility] [address] [place] [address] Jake Franco MD [address] [facility] [address] [place] [address] Referral ID Status Reason Start Date Expiration Date V isits Requested Visits Authorized [id number] Closed Specialty Services Required 08/06/2022 08/06/2023 1 1 Reason Comments Med Refill Reason Onset Date Comments Epidemic Concern 07/01/2023 Reason Comments covid Started on Saturday to day day 4 symptoms are headache, body ache, fatigue, diarrhea , dry cough. Reason Comments Other Patient states had c ovid in June, got better, expose to the flu, did not know at the time, patient and got it on Jul 23, starting to get better not complete better, achy, nausea, dizziness, tiredness, little bit of chills, denies fever, has been sick since the of this month Reason Comments Ear Problem Patient states right ear, popping, crackling, patient states has some nasal congestion, going on since May Reason Onset Date Comments Error (VOID this visit) 09/13/2023 Reason Onset Date Comments Med Refill 09/13/2023 Error (VOID this visit) 09/13/2023 Reason Onset Date Comments Ear Fullness 09/13/2023 Reason Comments Hand Pain Bilateral Specialty Diagnoses / Procedures Referred By Shanita espinal Referred To Contact Neurology Diagnoses Bilateral hand pain Weakness of both hands Procedures NERVE CONDUCTION TEST WITH EMG Jake Franco MD [address] [place] [address] Referral ID Status Reason Start Date Expiration Date Visits Re quested Visits Authorized [id number] Closed 01/10/2024 01/04/2025 1 1 Reason Comments Follow-up Bilateral Hands Specialty Diagnoses / Procedures Referred By Shanita espinal Referred To Contact Radiology Diagnoses Chronic neck pain with history of cervical spinal surgery Cervical radiculopathy Procedures MR cervical spine w and wo contrast Jake Franco MD [address] [place] [address] [facility] [address] [place] [address] Referral ID Status Reason Start Date Expiration Date Visits Re quested Visits Authorized [id number] Closed 02/04/2024 04/04/2024 1 1 Reason Onset Date Comments Appointment 02/14/2024 Reason Comments Follow-up Bilateral UE Reason Comments New Patient Patient reports havi ng cervical neck surgery in 2015. Patient is reporting numbness, tingling, and pain in bilateral upper extremities. She reports the right arm began in November 2023, and the left arm followed. She reports headaches, dizziness, nausea, tremors, and balance problems. She notes right shoulder pain. She saw Dr. White in 2019, diagnosed with cervical myelopathy, and was scheduled for surgery. That surgery was cancelled due to COVID. She reports her symptoms resolved until this past November. Specialty Diagnoses / Procedures Referred By Shanita espinal Referred To Contact Neurosurgery Diagnoses Chronic neck pain with history of cervical spinal surgery Cervical radiculopathy Balance problems Jake Franco MD [address] [place] [id number] German Dietz MD [address] [place] [phone] Referral ID Status Reason Start Date Expiration Date V isits Requested Visits Authorized [id number] Closed Specialty Services Required 02/19/2024 02/18/2025 1 1 Reason Onset Date Comments Surgery Scheduling 02/25/2024 Reason Comments Post-op Patient present for ACDF post op. Patient is reporting the medrol dosepak only temporarily helped with her swallowing. She reports "it feels like I have strep throat" Reason Comments Follow-up Difficulty swallowin g, throat pain worsening Reason Comments Medicare Annual Wellness Visit Salvatore t Reason Comments Follow-up Left hip pain; reque sting injection Reason Onset Date Comments Hip Pain 08/01/2022 Reason Onset Date Comments Hip Pain 08/01/2022 Reason Onset Date Comments Med Refill 06/10/2024 Reason Onset Date Comments Medication Problem 06/13/2024 Reason Comments Medicare Annual Wellness Visit Initial Reason Comments Follow-up Patient present for ACDF 3 month follow up. Reports continued intermittent difficulty swallowing. Also notes muscle tightness on the left side Scheduled Active and Recently Administ ered Medications (unrecognized section and content) Medication Order 08/14/2022 08/15/2022 08/16/2022 acetaminophen (Tylenol) tablet 1,000 mg (COMPLETED) 1,000 mg, Oral, Once, On Ashley 08/16/22 at 1000, For 1 dose, Preprocedure, Maximum dose of acetaminophen is 4000 mg from all sources in 24 hours. 1024 (Given - Provid er: Demetrio Villalpando, DAJUAN) aprepitant (Emend) capsule 40 mg (COMPLETED) 40 mg, Oral, Once, On Ashley 08/16/22 at 1015, For 1 dose, Preprocedure 1024 (Given - Provid er: Demetrio Villalpando, DAJUAN) ceFAZolin in dextrose 4% (Ancef) IVPB 2,000 mg (COMPLETED) 2,000 mg, IntraVENous, Administer over 30 Minutes, Software Sales Manager to O.R., On Ashley 08/16/22 at 1000, For 1 dose, Preprocedure, Administer within 1 hour prior to incision. Recommend to repeat in 3-4 hours after initial dose if still intra-op. premix bag, Suspected Indication (Select all that apply): Surgical Prophylaxis 1203 (Given - Provid er: Veronica Walden, OPERATIONS AGENT - [employer])1350 (Anesthesia Volume Adjustment - Provider: Silver Villegas, OPERATIONS AGENT - [employer]) famotidine (Pepcid) tablet 20 mg (COMPLETED) 20 mg, Oral, Once, On Ashley 08/16/22 at 1000, For 1 dose, Preprocedure 1024 (Given - Provid er: Demetrio Villalpando RN) sodium chloride 0.9 % bolus 500 mL 500 mL, IntraVENous, at 1,000 mL/hr, Administer over 0.5 Hours, Once, On Ashley 08/16/22 at 1400, For 1 dose, Recovery (only), Indications: Anti-nausea 1400 (Canceled Entry - Provider: Automatic Discharge Provider - Comment: Automatically canceled at discontinue of medication order) sodium chloride 0.9% (NS) flush 10 mL 10 mL, IntraVENous, Every 12 hours scheduled (2 times per day), First dose on Ashley 08/16/22 at 1000, Preprocedure 1000 (Canceled Entry - Provider: Automatic Discharge Provider - Comment: Automatically canceled at discontinue of medication order) sodium chloride 0.9% (NS) flush 5-40 mL 5-40 mL, IntraVENous, Every 12 hours, First dose on Ashley 08/16/22 at 1000, Preprocedure, For Line Patency: Peripheral IV = 5 mL; Midline or Central Line = 10 mL/lumen. If following IV push medication, administer flush at same rate as the IV push. Flush volume is determined by type of infusion therapy being given. For non-viscous solutions use: Peripheral IV = 5 mL Midline or Central Line = 10 mL/lumen For viscous solutions (i.e. blood components, parenteral nutrition, contrast media, or after obtaining blood sample) use: Peripheral IV = 10 mL Midline or Central Line = 20 mL/lumen 1000 (Canceled Entry - Provider: Automatic Discharge Provider - Comment: Automatically canceled at discontinue of medication order) Continuous Medication Order 08/14/2022 08/15/2022 08/16/2022 lactated Ringer's infusion 50 mL/hr, IntraVENous, Continuous, Starting on Ashley 08/16/22 at 1000, Preprocedure, Upon admission to sameday - please start iv if patient does not have iv access. Use 500ml NS for patients on dialysis. 1025 (New Bag - Prov ider: Demetrio Villalpando RN)1158 (Continued by Anesthesia - Provider: IVY Bravo CRNA)1203 (Rate/Dose Change - Provider: IVY Bravo CRNA)1349 (Anesthesia Volume Adjustment - Provider: IVY Ying CRNA)1350 (Stopped - Provider: IYV Ying CRNA) lactated ringers infusion 125 mL/hr, IntraVENous, Continuous, Starting on Ashley 08/16/22 at 1400, Recovery (only) 1400 (Canceled Entry - Provider: Automatic Discharge Provider - Comment: Automatically canceled at discontinue of medication order) PRN Medication Order 08/14/2022 08/15/2022 08/16/2022 diphenhydrAMINE (BENADryl) injection 12.5 mg 12.5 mg, IntraVENous, Once PRN, itching, Starting on Ashley 08/16/22 at 1349, For 1 dose, Recovery (only) HYDROmorphone (Dilaudid) injection 0.25 mg 0.25 mg, IntraVENous, Every 5 min PRN, moderate pain (4-6), Starting on Ashley 08/16/22 at 1349, For 4 doses, Recovery (only), Phase I and Phase II- Initial therapy for moderate pain (4-6). Restricted to a 90 minute time frame starting when the patient can verbally state their pain score. If after 2 doses the pain score does not decrease by more than one point, then call the provider. If oral meds are utilized, do not return to initial therapy medications. HYDROmorphone (Dilaudid) injection 0.5 mg 0.5 mg, IntraVENous, Every 5 min PRN, severe pain (7-10), Starting on Ashley 08/16/22 at 1349, For 4 doses, Recovery (only), Phase I and Phase II- Initial therapy for moderate pain (4-6). Restricted to a 90 minute time frame starting when the patient can verbally state their pain score. If after 2 doses the pain score does not decrease by more than one point, then call the provider. If oral meds are utilized, do not return to initial therapy medications. 1351 (Given - Provid er: Esperanza Latham RN)1404 (Given - Provider: Esperanza Latham RN) LORazepam (Ativan) injection 0.5 mg (COMPLETED) 0.5 mg, IntraVENous, Once PRN, for anxiety or muscle spasm., Starting on Ashley 08/16/22 at 1349, For 1 dose, Recovery (only), For IV doses dilute dose with 1ml NS. 1418 (Given - Provid er: Esperanza Latham RN) metoclopramide (Reglan) injection 5 mg 5 mg, IntraVENous, Once PRN, nausea, Starting on Ashley 08/16/22 at 1349, For 1 dose, Recovery (only), Secondary antiemetic therapy. Notify anesthesia provider before administration. ondansetron (Zofran) injection 4 mg 4 mg, IntraVENous, Once PRN, nausea, Starting on Ashley 08/16/22 at 1349, For 1 dose, Recovery (only), Initial antiemetic therapy. oxyCODONE (Roxicodone) immediate release tablet 10 mg (COMPLETED) 10 mg, Oral, PRN, severe pain (7-10), Starting on Ashley 08/16/22 at 1349, For 1 dose, Recovery (only), PHASE II 1508 (Given - Provid er: Esperanza Latham RN) sodium chloride 0.9 % infusion 5-250 mL/hr, IntraVENous, PRN, if patient receiving piggyback infusions and maintenance fluids are not ordered OR KVO fluids to protect IV site / prevent frequent line interruptions / long duration, Starting on Ashley 08/16/22 at 0947, Preprocedure, For piggyback infusion, administer at same rate as piggyback for a total of 25 mL. Enter 25 mL into dose field and piggyback rate into rate field of order. If piggyback is infusing at a rate less than 100 mL/hr, enter 25 mL into dose field and 100 mL/hr into rate field of order. For KVO fluids, enter rate of 20 mL/hr or less into rate field of order. sodium chloride 0.9 % infusion 5-250 mL/hr, IntraVENous, PRN, if patient receiving piggyback infusions and maintenance fluids are not ordered OR KVO fluids to protect IV site / prevent frequent line interruptions/ long duration, Starting on Ashley 08/16/22 at 0947, Preprocedure, For piggyback infusion, administer at same rate as piggyback for a total of 25 mL. Enter 25 mL into dose field and piggyback rate into rate field of order. If piggyback is infusing at a rate less than 100 mL/hr, enter 25 mL into dose field and 100 mL/hr into rate field of order. For KVO fluids, enter rate of 20 mL/hr or less into rate field of order. sodium chloride 0.9 % irrigation solution (CANCELED) As needed, Starting on Ashley 08/16/22 at 1235, Intraprocedure 1235 (Given - Provid er: Jun Jimenez MD - Comment: BAG X 2) sodium chloride 0.9% (NS) flush 10 mL 10 mL, IntraVENous, PRN, line care, Starting on Ashley 08/16/22 at 0947, Preprocedure, After every IV line use sodium chloride 0.9% (NS) flush 5-40 mL 5-40 mL, IntraVENous, PRN, line care, After every IV line use, Starting on Ashley 08/16/22 at 0947, Preprocedure, For Line Patency: Peripheral IV = 5 mL; Midline or Central Line = 10 mL/lumen. If following IV push medication, administer flush at same rate as the IV push. Flush volume is determined by type of infusion therapy being given. For non-viscous solutions use: Peripheral IV = 5 mL Midline or Central Line = 10 mL/lumen For viscous solutions (i.e. blood components, parenteral nutrition, contrast media, or after obtaining blood sample) use: Peripheral IV = 10 mL Midline or Central Line = 20 mL/lumen Scheduled Medication Order 10/17/2023 10/18/2023 10/19/2023 dexAMETHasone (PF) (Decadron) injection 10 mg (COMPLETED) 10 mg, IntraVENous, Once, On 10/19/23 at 2305, For 1 dose 2311 (Given - Provid er: Wen Zuñiga RN) ketorolac (Toradol) injection 15 mg (COMPLETED) 15 mg, IntraVENous, Once, On 10/19/23 at 2155, For 1 dose 2224 (Given - Provid er: Wen Zuñiga RN) ondansetron (Zofran) injection 4 mg (COMPLETED) 4 mg, IntraVENous, Once, On 10/19/23 at 2310, For 1 dose 2309 (Given - Provid er: Wen Zuñiga RN) sodium chloride 0.9 % bolus 1,000 mL (COMPLETED) 1,000 mL, IntraVENous, at 1,000 mL/hr, Administer over 1 Hours, Once, On 10/19/23 at 2155, For 1 dose 2221 (New Bag - Prov ider: Wen Zuñiga RN)2321 (Stopped - Provider: Wen Zuñiga RN) Scheduled Medication Order 04/13/2024 04/14/2024 04/15/2024 acetaminophen (Tylenol) tablet 1,000 mg (COMPLETED) 1,000 mg, Oral, Once, On Sat04/14/24 at 0630, For 1 dose, Preprocedure, Administer 60 minutes prior to surgery. 0647 (Given - Provider: Fabiola oYrk RN) acetaminophen (Tylenol) tablet 650 mg 650 mg, Oral, Every 6 hours, First dose on Sat04/14/24 at 1600, Phase II/On Unit 1549 (Given - Provider: Santa Rubi RN)2106 (Given - Provider: Modesto Tavarez, DAJUAN) 0514 (Given - Provider: Modesto Tavarez, DAJUAN)0918 (Given - Provider: Alexandra Grayson RN)1600 (Canceled Entry - Provider: Automatic Discharge Provider - Comment: Automatically canceled at discontinue of medication order) albuterol 108 (90 Base) MCG/ACT inhaler 1 puff(Linked Group 1) 1 puff, Inhalation, 4 times daily, First dose on Sat04/14/24 at 1600 1600 (Not Given - Provider: Anastacia Francois RN - Reason: Medication not available)1999 (Not Given - Provider: Modesto Tavarez RN - Reason: Patient/family refused) 0800 (Given - Provider: Alexandra Grayson, DAJUAN)1200 (Not Given - Provider: Alexandra Grayson RN - Reason: Patient/family refused)1600 (Canceled Entry - Provider: Automatic Discharge Provider - Comment: Automatically canceled at discontinue of medication order) atorvastatin (Lipitor) tablet 20 mg 20 mg, Oral, Nightly, First dose on Sat04/15/24 at 2100, Phase II/On Unit, Substituted for simvastatin (Zocor). ceFAZolin in dextrose 4% (Ancef) IVPB 2,000 mg (COMPLETED) 2,000 mg, IntraVENous, Administer over 30 Minutes, Once, On Sat04/14/24 at 0630, For 1 dose, Preprocedure, Administer within 1 hour prior to incision. Recommend to repeat in 3-4 hours after initial dose if still intra-op. premix bag, Suspected Indication (Select all that apply): Surgical Prophylaxis 0745 (Given - Provider: Rachel Nielsen CRNA) ceFAZolin in dextrose 4% (Ancef) IVPB 2,000 mg (COMPLETED) 2,000 mg, IntraVENous, Administer over 30 Minutes, Every 8 hours, First dose on Sat04/14/24 at 1600, For 2 doses, Phase II/On Unit, premix bag, Suspected Indication (Select all that apply): Surgical Prophylaxis 1611 (New Bag - Provider: Santa Rubi RN)1641 (Stopped - Provider: Anastacia Francois RN) 0004 (New Bag - Provider: Modesto Tavarez RN)0034 (Stopped - Provider: Modesto Tavarez RN) dexAMETHasone (Decadron) injection 10 mg (COMPLETED) 10 mg, IntraVENous, Once, On Sat04/14/24 at 1800, For 1 dose, Phase II/On Unit 1708 (Given - Provider: Santa Rubi RN) docusate sodium (Colace) capsule 100 mg 100 mg, Oral, 2 times daily, First dose on Sat04/14/24 at 2100, Phase II/On Unit, Bowel Regimen - for prevention of constipation. 2105 (Given - Provider: Modesto Tavarez RN) 917 (Given - Provider: Alexandra Grayson RN) famotidine (Pepcid) tablet 20 mg (COMPLETED)(Linked Group 2) 20 mg, Oral, Once, On Sat04/14/24 at 0630, For 1 dose, Preprocedure, IV or Oral 0647 (Given - Provider: Fabiola York RN) gabapentin (Neurontin) capsule 300 mg 300 mg, Oral, 2 times daily, First dose on Sat04/14/24 at 2100, Phase II/On Unit 2105 (Given - Provider: Modesto Tavarez RN) 917 (Given - Provider: Alexandra Grayson RN) losartan (Cozaar) tablet 50 mg 50 mg, Oral, Daily, First dose on Sat04/14/24 at 1600, Phase II/On Unit 1548 (Given - Provider: Santa Rubi RN) 917 (Given - Provider: Alexandra Grayson RN) montelukast (Singulair) tablet 10 mg 10 mg, Oral, Nightly, First dose on Sat04/14/24 at 2100, Phase II/On Unit 2105 (Given - Provider: Modesto Tavarez RN) pantoprazole (ProtoNix) EC tablet 40 mg 40 mg, Oral, Daily before breakfast, First dose on Sat04/15/24 at 0600, Phase II/On Unit, Substituted for lansoprazole (Prevacid). Do not crush, chew, or split. 0515 (Given - Provid er: Modesto Tavarez RN) polyethylene glycol (PEG) 3350 (Miralax) packet 17 g 17 g, Oral, Daily, First dose on Sat04/14/24 at 1600, Phase II/On Unit, Bowel Regimen - for prevention of constipation. 1600 (Not Given - Provider: Santa Rubi RN - Reason: Patient/family refused) 917 (Given - Provider: Alexandra Grayson RN) sertraline (Zoloft) tablet 100 mg 100 mg, Oral, Daily, First dose on Sat04/15/24 at 0900, Phase II/On Unit 917 (Given - Provid er: Alexandra Grayson RN) sodium chloride 0.9% (NS) flush 10 mL 10 mL, IntraVENous, Every 12 hours scheduled (2 times per day), First dose on Sat04/14/24 at 2100, Phase II/On Unit 2107 (Given - Provider: Modesto Tavarez RN) 0900 (Not Given - Provider: Alexandra Grayson RN - Reason: IV Fluids Infusing) tiotropium (Spiriva Respimat) 2.5 MCG/ACT inhaler 2 puff(Linked Group 1) 2 puff, Inhalation, Daily, First dose on Sat04/14/24 at 1545, Instruct to hold breath for 10 seconds after each inhalation. Before first use, prime inhaler by actuating until aerosal cloud is seen, then actuating 3 more times. Therapeutic substitution for Combivent when given with Albuterol 2100 (Not Given - Provider: Modesto Tavarez RN - Reason: Patient/family refused - Comment: pt already used maintenance inhaler today) 0920 (Given - Provider: Alexandra Grayson RN) Continuous Medication Order 04/13/2024 04/14/2024 04/15/2024 lactated Ringer's (LR) infusion (CANCELED) 50 mL/hr, IntraVENous, Continuous, Starting on Sat04/14/24 at 0630, Upon admission to sameday - please start iv if patient does not have iv access. Use 500ml NS for patients on dialysis. 0700 (New Bag - Provider: Fabiola York RN)0730 (Continued by Anesthesia - Provider: Rachel Nielsen CRNA)0920 (Stopped - Provider: Rachel Nielsen CRNA)1600 (Stopped - Provider: Santa Rubi RN) sodium chloride 0.9 % infusion 75 mL/hr, IntraVENous, Continuous, Starting on Sat04/14/24 at 1530, Phase II/On Unit 1707 (New Bag - Provider: Santa Rubi RN) 0514 (New Bag - Provider: Modesto Tavarez RN)0607 (Rate/Dose Verify - Provider: Modesto Tavarez RN)1247 (Rate/Dose Verify - Provider: Alexandra Grayson RN)1249 (Stopped - Provider: Alexandra Grayson RN) PRN Medication Order 04/13/2024 04/14/2024 04/15/2024 ALPRAZolam (Xanax) disintegrating tablet 0.25 mg (COMPLETED) 0.25 mg, Oral, Once PRN, anxiety, Starting on Sat04/14/24 at 0618, For 1 dose, Preprocedure, Please do not administer prior to obtaining consent and/or history and physical. 0647 (Given - Provider: Fabiola York RN) bisacodyl (Dulcolax) EC tablet 5 mg 5 mg, Oral, Daily PRN, constipation, Starting on Sat04/14/24 at 1528, Phase II/On Unit, 1st line for treatment of constipation - give scheduled if no bowel movement in past 24 hours. Do not crush, chew, or split. bisacodyl (Dulcolax) suppository 10 mg 10 mg, Rectal, Daily PRN, constipation, Starting on Sat04/14/24 at 1528, Phase II/On Unit, 2nd line for treatment of constipation - give scheduled (in addition to 1st line agent) if no bowel movement in past 48 hours bupivacaine-EPINEPHrine (Marcaine w/EPI) 0.5% -[id number] injection (CANCELED) As needed, Starting on Sat04/14/24 at 0856, Intraprocedure 0856 (Given - Provider: German Dietz MD) gelatin absorbable (Surgifoam) hemorrhoidectomy sponge (CANCELED) As needed, Starting on Sat04/14/24 at 0812, Intraprocedure 0812 (Given - Provider: German Dietz MD - Comment: Combined with 10,000 units thrombin and applied topically to surgical site.) hydrALAZINE (Apresoline) injection 5 mg (COMPLETED) 5 mg, IntraVENous, Every 15 min PRN, high blood pressure, for SBP greater than 160 mmHg for 2 consecutive measurements taken from different sites, Starting on Sat04/14/24 at 0915, For 2 doses, Recovery (only), PRN for SBP > 160 for 2 consecutive measurements, and if one of the following conditions is met: 1) If IV labetolol is ineffective. 2) If HR is under 60. 3) If patient has heart block, COPD or asthma. If both labetalol and hydralazine ineffective, notify anesthesia provider. 0949 (Given - Provider: Chetna Eric RN)1005 (Given - Provider: Chetna Eric RN) HYDROmorphone (Dilaudid) injection 0.5 mg (CANCELED) 0.5 mg, IntraVENous, Every 5 min PRN, severe pain (7-10), Starting on Sat04/14/24 at 0915, For 4 doses, Recovery (only), Phase I and Phase II- Initial therapy for severe pain (7-10). Restricted to a 90 minute time frame starting when the patient can verbally state their pain score. If after 2 doses the pain score does not decrease by more than one point, then call the provider. If oral meds are utilized, do not return to initial therapy medications. 0929 (Given - Provider: Chetna Eric RN)0935 (Given - Provider: Chetna Eric RN) LORazepam (Ativan) injection 0.5 mg (COMPLETED) 0.5 mg, IntraVENous, Once PRN, for anxiety or muscle spasm., Starting on Sat04/14/24 at 0915, For 1 dose, Recovery (only), For IV doses dilute dose with 1ml NS. 0944 (Given - Provider: Chetna Eric RN) morphine injection 2 mg(Linked Group 3) 2 mg, IntraVENous, Every 2 hour PRN, moderate pain (4-6), Starting on Sat04/14/24 at 1528, Phase II/On Unit, If oral and IV narcotics ordered, use oral first and only use IV if oral is ineffective or cannot take oral. Do Not give oral and IV within 1 hour of each other unless specifically ordered. morphine injection 4 mg(Linked Group 3) 4 mg, IntraVENous, Every 2 hour PRN, severe pain (7-10), Starting on Sat04/14/24 at 1528, Phase II/On Unit, If oral and IV narcotics ordered, use oral first and only use IV if oral is ineffective or cannot take oral. Do Not give oral and IV within 1 hour of each other unless specifically ordered. naloxone (Narcan) injection 0.4 mg 0.4 mg, IntraVENous, Every 5 min PRN, opioid reversal, Starting on Sat04/15/24 at 0804, For RR <10, pinpoint pupils, over sedation for opioid reversal - MUST notify section weaver provider immediately after first dose, may give IM or SQ if no IV access ondansetron (Zofran) injection 4 mg(Linked Group 4) 4 mg, IntraVENous, Every 6 hours PRN, nausea, vomiting, Starting on Sat04/14/24 at 1528, Phase II/On Unit, 1st Line. Give IV if patient is unable to take orally. If inadequate response within 60 minutes, proceed to next-line agent or contact provider if no further options ordered. 1718 (Given - Provider: Santa Rubi RN) ondansetron ODT (Zofran-ODT) disintegrating tablet 4 mg(Linked Group 4) 4 mg, Oral, Every 8 hours PRN, nausea, vomiting, Starting on Sat04/14/24 at 1528, Phase II/On Unit, 1st Line. If inadequate response within 60 minutes, proceed to next-line agent or contact provider if no further options ordered. Patient should allow tablet to dissolve on tongue. Do not remove from blister pack until just before administering. 1718 (See Alternative - Provider: Santa Rubi RN) oxyCODONE (Roxicodone) immediate release tablet 10 mg(Linked Group 5) 10 mg, Oral, Every 4 hours PRN, severe pain (7-10), Starting on Sat04/14/24 at 1528, Phase II/On Unit 1546 (Given - Provider: Santa Rubi RN)2105 (Given - Provider: Modesto Tavarez RN) 0515 (Given - Provider: Modesto Tavarez RN)0918 (Given - Provider: Alexandra Grayson, DAJUAN)1308 (Given - Provider: Alexandra Grayson, DAJUAN) oxyCODONE (Roxicodone) immediate release tablet 5 mg(Linked Group 5) 5 mg, Oral, Every 4 hours PRN, moderate pain (4-6), Starting on Sat04/14/24 at 1528, Phase II/On Unit 1546 (See Alternative - Provider: Santa Rubi RN)210 (See Alternative - Provider: Modesto Tavarez RN) 0515 (See Alternative - Provider: Modesto Tavarez RN)0918 (See Alternative - Provider: Alexandra Grayson, DAJUAN)1308 (See Alternative - Provider: Alexandra Grayson, DAJUAN) phenol (Chloraseptic) 1.4 % mouth/throat spray 1 spray 1 spray, Mouth/Throat, Every 2 hour PRN, sore throat, Starting on Sat04/14/24 at 1528, Phase II/On Unit, Instruct patient to spit out after 15 seconds. 1823 (Given - Provider: Santa Rubi RN) sodium chloride 0.9 % infusion 5-250 mL/hr, IntraVENous, PRN, if patient receiving piggyback infusions and maintenance fluids are not ordered OR KVO fluids to protect IV site / prevent frequent line interruptions/ long duration, Starting on Sat04/14/24 at 1528, Phase II/On Unit, For piggyback infusion, administer at same rate as piggyback for a total of 25 mL. Enter 25 mL into dose field and piggyback rate into rate field of order. If piggyback is infusing at a rate less than 100 mL/hr, enter 25 mL into dose field and 100 mL/hr into rate field of order. For KVO fluids, enter rate of 20 mL/hr or less into rate field of order. sodium chloride 0.9 % irrigation solution (CANCELED) As needed, Starting on Sat04/14/24 at 0814, Intraprocedure 0814 (Given - Provider: German Dietz MD) sodium chloride 0.9% (NS) flush 10 mL 10 mL, IntraVENous, PRN, line care, Starting on Sat04/14/24 at 1528, Phase II/On Unit, After every IV line use sterile water irrigation solution (CANCELED) As needed, Starting on Sat04/14/24 at 0814, Intraprocedure 0814 (Given - Provider: German Dietz MD - Comment: In basin to rinse instruments) thrombin spray (CANCELED) As needed, Starting on Sat04/14/24 at 0814, Intraprocedure 0814 (Given - Provider: German Dietz MD - Comment: Combined with gelfoam and applied topically to surgical site.) tiZANidine (Zanaflex) tablet 4 mg 4 mg, Oral, Every 8 hours PRN, muscle spasms, Starting on Sat04/14/24 at 1528, Phase II/On Unit 1441 (Given - Provid er: Michelle Briggs RN) Linked Groups Order Group 1: tiotropium (Spiriva Respimat) 2.5 MCG/ACT inhaler 2 puffJump to med 2 puff, Inhalation, Daily, First dose on Sat04/14/24 at 1545, Instruct to hold breath for 10 seconds after each inhalation. Before first use, prime inhaler by actuating until aerosal cloud is seen, then actuating 3 more times. Therapeutic substitution for Combivent when given with Albuterol And albuterol 108 (90 Base) MCG/ACT inhaler 1 puffJump to med 1 puff, Inhalation, 4 times daily, First dose on Sat04/14/24 at 1600 Group 2: famotidine (Pepcid) tablet 20 mg (COMPLETED)Jump to med 20 mg, Oral, Once, On Sat04/14/24 at 0630, For 1 dose, Preprocedure, IV or Oral Or famotidine (Pepcid) 20 mg in sodium chloride (PF) 0.9 % 10 mL injection (COMPLETED) 20 mg, IntraVENous, Administer over 2 Minutes, Once, On Sat04/14/24 at 0630, For 1 dose, Preprocedure, IV or Oral Group 3: morphine injection 2 mgJump to med 2 mg, IntraVENous, Every 2 hour PRN, moderate pain (4-6), Starting on Sat04/14/24 at 1528, Phase II/On Unit, If oral and IV narcotics ordered, use oral first and only use IV if oral is ineffective or cannot take oral. Do Not give oral and IV within 1 hour of each other unless specifically ordered. Or morphine injection 4 mgJump to med 4 mg, IntraVENous, Every 2 hour PRN, severe pain (7-10), Starting on Sat04/14/24 at 1528, Phase II/On Unit, If oral and IV narcotics ordered, use oral first and only use IV if oral is ineffective or cannot take oral. Do Not give oral and IV within 1 hour of each other unless specifically ordered. Group 4: ondansetron ODT (Zofran-ODT) disintegrating tablet 4 mgJump to med 4 mg, Oral, Every 8 hours PRN, nausea, vomiting, Starting on Sat04/14/24 at 1528, Phase II/On Unit, 1st Line. If inadequate response within 60 minutes, proceed to next-line agent or contact provider if no further options ordered. Patient should allow tablet to dissolve on tongue. Do not remove from blister pack until just before administering. Or ondansetron (Zofran) injection 4 mgJump to med 4 mg, IntraVENous, Every 6 hours PRN, nausea, vomiting, Starting on Sat04/14/24 at 1528, Phase II/On Unit, 1st Line. Give IV if patient is unable to take orally. If inadequate response within 60 minutes, proceed to next-line agent or contact provider if no further options ordered. Group 5: oxyCODONE (Roxicodone) immediate release tablet 5 mgJump to med 5 mg, Oral, Every 4 hours PRN, moderate pain (4-6), Starting on Sat04/14/24 at 1528, Phase II/On Unit Or oxyCODONE (Roxicodone) immediate release tablet 10 mgJump to med 10 mg, Oral, Every 4 hours PRN, severe pain (7-10), Starting on Sat04/14/24 at 1528, Phase II/On Unit Goals (unrecognized section and content) Goals may be documented in a n alternate sectionGoals may be documented in an alternate sectionGoals may be documented in an alternate sectionGoals may be documented in an alternate section FOR RECORDS PERTAINING TO PATIENTS WHO ARE OR HAVE BEEN ENROLLED IN A CHEMICAL DEPENDENCY/SUBSTANCEABUSE PROGRAM, SOME INFORMATION MAY BE OMITTED. This clinical summary was aggregated from multiple sources. Caution should be exercised in using it in the provision of clinical care. This summary normalizes information from multiple sources, and as a consequence, information in this document may materially change the coding, format and clinical context of patient data. In addition, data may be omitted in some cases. CLINICAL DECISIONS SHOULD BE BASED ON THE PRIMARY CLINICAL RECORDS. [employer] provides no warranty or guarantee of the accuracy or completeness of information in this document.
--- NOTE | 2025-03-08 11:34 | STRESSREP ---
Stress Test Report Pharmacologic myocardial perfusion stress test. 74-year-old lady with a history of chest pain. Resting EKG demonstrates normal sinus with a rate of 71 bpm. Resting blood pressure is 150/84 mmHg. 0.4 mg of regadenoson was infused per usual protocol followed by rapid intravenous saline flush injection. Continuous EKG monitoring was performed. The maximum heart rate was 93 bpm which was 64% of max impacted heart rate the maximum workload was 1 metabolic equivalent. At rest there were no ST or T wave changes noted to suggest ischemia and at peak infusion nonspecific ST changes were noted which did not meet the criteria for ischemia. No clinical angina is noted. The final blood pressure was 142/76 mmHg. Myocardial perfusion protocol. 11.4 mCi of technetium 99m sestamibi was injected at rest. 0.4 mg of regadenoson was infused per usual protocol. At peak infusion 34.2 mCi of technetium 99m sestamibi was injected stress images were obtained stress and rest images were reconstructed and compared in the short axis vertical long and horizontal long axis. Gated images were also obtained. Perfusion SPECT analysis: Review of the stress images demonstrate normal uptake of tracer noted in all areas of the myocardium. The resting images similar demonstrated normal uptake of tracer noted in all areas of the myocardium. No areas of reversibility are noted to suggest ischemia and no previous infarct is noted. Gated SPECT analysis: The gated ejection fraction is 83%. Conclusion: Normal pharmacologic myocardial perfusion stress test. Preserved ejection fraction.
== END | disposition home or self-care (01) ==
LOC: CVS 07:00
PROVIDERS: PCP Student in an Organized Health Care Education/Training Program; Referring Provider Student in an Organized Health Care Education/Training Program; Visit Provider Student in an Organized Health Care Education/Training Program
DX: I25.10 Atherosclerotic heart disease of native coronary artery without angina pectoris (principal); E78.5 Hyperlipidemia, unspecified; R53.83 Other fatigue; R07.9 Chest pain, unspecified
CPT/HCPCS: 78452; 93017; A9500; A4216; J2785

== ENCOUNTER → 2025-04-19 | Outpatient (CLI) | payer MEDICARE, SELFPAY ==
--- NOTE | 2025-04-19 13:07 | ART_ITS ---
Reason For Study Reason For Study: BLE Pain Procedure A bilateral lower extremity continuous wave Doppler with analog waveform analysis and ankle brachial indexes. Left Segmental Pressures Left brachial= 155mmHg. Left posterior tibial artery = 169mmHg. Left dorsalis pedis artery = 158mmHg. Left digit = 124 mmHg. Right Segmental Pressures Right brachial= 146mmHg. Right posterior tibial artery = 181mmHg. Right dorsalis pedis artery = 170mmHg. Right digit = 145 mmHg. Indices The right ankle brachial index by the posterior tibial artery is 1.17. The right ankle brachial index by the dorsalis pedis is 1.10. The right digital-brachial index is 0.94. The left ankle brachial index by the posterior tibial artery is 1.09. The left ankle brachial index by the dorsalis pedis is 1.02. The left digital-brachial index is 0.80. VL/Ankle Brachial Index Interpretation Summary Right CLARK 1.17, normal. TBI and Doppler/PVR waveforms of the right ankle normal at rest. Left CLARK 1.09, normal. TBI and Doppler/PVR waveforms of the left ankle normal a t rest. Ordering Physician: Jorge Stack Referring Physician: Burt Mcdermott Performed By: Ibis Reyes RVT, RDCS and Student
== END | disposition home or self-care (01) ==
LOC: CVS 13:03
PROVIDERS: PCP Student in an Organized Health Care Education/Training Program; Referring Provider Student in an Organized Health Care Education/Training Program; Visit Provider Student in an Organized Health Care Education/Training Program
DX: I73.9 Peripheral vascular disease, unspecified (principal)
CPT/HCPCS: 93922